=== PATIENT | female | born 1995 | race Caucasian/White ===

== ENCOUNTER 2023-06-29 11:20 | Outpatient (CLI) | payer BC, SELFPAY ==
[2023-06-29 15:13] LABS: Chlamydia DNA Amplified* NOT DETECTED (No Detected); GC DNA Amplified* NOT DETECTED (No Detected)
== END 2023-06-29 11:21 | disposition home or self-care (01) ==
PROVIDERS: PCP Family Medicine; Visit Provider Registered Nurse
DX: N89.8 Other specified noninflammatory disorders of vagina (principal); Z11.3 Encounter for screening for infections with a predominantly sexual mode of transmission
CPT/HCPCS: 86592; 86703; 86803; 87340; 87491; 87591

== ENCOUNTER 2024-04-06 08:35 | Outpatient (CLI) | payer BC, SELFPAY ==
--- NOTE | 2024-04-06 09:45 | W.ANESCHARGE ---
Anesthesia Charges Start Date/Time Anesthesia Start Date: 04/06/24 Anesthesia Start Time: 09:19 Stop Date/Time Anesthesia Stop Date: 04/06/24 Anesthesia Stop Time: 09:44
--- NOTE | 2024-04-06 10:26 | W.ANESCHARGE ---
Anesthesia Charges Start Date/Time Anesthesia Start Date: 04/06/24 Anesthesia Start Time: 09:19 Stop Date/Time Anesthesia Stop Date: 04/06/24 Anesthesia Stop Time: 09:44
== END 2024-04-06 08:36 | disposition home or self-care (01) ==
LOC: OP CLINIC 08:36
PROVIDERS: PCP Family Medicine; Visit Provider Internal Medicine Gastroenterology
DX: K92.1 Melena (principal); Z86.010 Personal history of colon polyps
CPT/HCPCS: 00812; 45378; J2704

== ENCOUNTER 2024-07-05 13:37 | Emergency (ER) | payer BC, SELFPAY ==
[2024-07-05 13:41] VITALS: BP 112/75; PULSE 104; RESP 18; TEMP 36.7; O2SAT 99; BMI 45.5
--- NOTE | 2024-07-05 14:35 | CRLHL7_ITS ---
For Patients: As a result of the Century Cures Act, medical imaging exams and procedure reports are released immediately into your electronic medical record. You may view this report before your referring provider. If you have questions, please contact your health care provider. INDICATION: Epigastric pain. TECHNIQUE: Limited right upper quadrant ultrasound examination of the abdomen was performed. Grayscale and color Doppler images were obtained. COMPARISON: None. FINDINGS: Liver: Normal in size and contour. The hepatic echotexture is normal. No suspicious hepatic masses. Gallbladder: Normal in size. No pericholecystic fluid. Cholelithiasis. Sonographic Shane`s sign was negative. Common bile duct: Measures 5 mm. Pancreas: Visualized portions unremarkable. Right kidney: Normal in size. No hydronephrosis. No suspicious renal masses or obstructive urinary calculus. Vascular: Visualized aorta and IVC are unremarkable. IMPRESSION: Cholelithiasis without other sonographic evidence of acute cholecystitis. Dictated by Jonah Deleon MD @ 07/05/2024 3:28:25 PM (Electronically Signed)
--- NOTE | 2024-07-05 14:37 | ED_ITS ---
HPI - Abdominal Pain General Chief Complaint: Abdominal Pain Stated Complaint: Abdominal/back pain--med reaction Time Seen by Provider: 07/05/24 13:40 History of Present Illness HPI narrative: This 28-year-old female states that she began to have some abdominal discomfort last night and it became more intense and constant as it woke her up at about 5:00 a.m. this morning. She recently increased her dose of tirzepatide and wonders if her symptoms may be triggered by this medication change. She reports some nausea and vomiting and has had some diarrhea. She states that when she tries to take any food or drink then she has increased abdominal pain that does seem to extend more into the right upper abdomen also. She arrives here with heart rate at 104 but her other vital signs are all normal. Related Data Home Medications ?Medication ?Instructions ?Recorded ?Confirmed metoprolol succinate 25 mg 25 mg PO DAILY 06/15/23 04/05/24 tablet,extended release 24 hr clonazepam 0.5 mg tablet 0.5 mg PO BID PRN 06/29/23 07/05/24 lamotrigine 100 mg tablet 100 mg PO DAILY 04/05/24 07/05/24 olanzapine 5 mg tablet 5 mg PO QPM 04/05/24 07/05/24 metoprolol succinate 50 mg 50 mg PO DAILY 07/05/24 07/05/24 tablet,extended release 24 hr tirzepatide (weight loss) 7.5 7.5 mg subcut 07/05/24 mg/0.5 mL subcutaneous pen injector (Zepbound) venlafaxine 37.5 mg 37.5 mg PO DAILY 07/05/24 07/05/24 capsule,extended release 24 hr Previous Rx's ?Medication ?Instructions ?Recorded hydrocodone 5 mg-acetaminophen 325 1 tab PO Q4-6H PRN pain #15 tabs 07/05/24 mg tablet ondansetron HCl 4 mg tablet 4 mg PO Q6H #20 tabs 07/05/24 Allergies Allergy/AdvReac Type Severity Reaction Status Date / Time ibuprofen Allergy Severe Anaphylaxis Verified 07/05/24 13:50 ciprofloxacin (From Cipro) Allergy Mild Anxiety Verified 07/05/24 13:50 Sulfa (Sulfonamide Allergy Mild Hives Verified 07/05/24 13:50 Antibiotics) kiwi Allergy Verified 07/05/24 13:50 pineapple Allergy Verified 07/05/24 13:50 Review of Systems Status of ROS Reports: 10 or more systems reviewed and unremarkable except as noted in History and below Narrative Constitutional: No fevers, no weight gain or loss. Eyes: No discharge. No vision changes. HENT: No congestion, no sore throat, no ear pain. Cardiovascular: No chest pain, no palpitations. Respiratory: No shortness of breath, no wheezes, no cough. Gastrointestinal: Upper epigastric abdominal pain with some nausea, vomiting, and diarrhea. Genitourinary: No dysuria, no hematuria. Musculoskeletal: Normal range of motion. Skin: No rashes, no pruritis. Neurological: No dizziness, weakness, sensory change, speech change. Endo/Heme/Allergies: No bruising or bleeding. No polydipsia. Pysch: no suicidality, no anxiety, no insomnia. All other systems reviewed and are negative. [facility] Surgical History (Updated 06/13/23 @ 11:10 by Gill Morillo) History of open reduction and internal fixation (ORIF) procedure ?Z98.890 - Other specified postprocedural states (ICD-10) Family History (Updated 06/13/23 @ 11:12 by Gill Morillo) Mother Addiction to drug Alcohol dependence Father Addiction to drug Alcohol dependence Maternal Grandmother Diabetes Maternal Grandfather Heart disease Paternal Grandmother Diabetes Paternal Grandfather Diabetes Exam Narrative: Exam Narrative: Constitutional: Well-developed, well-nourished, no acute distress. HEENT: Normocephalic, atraumatic. Neck: Normal range of motion. Nontender. Supple. Heart: Regular. No murmurs. Normal rate. Intact distal pulses. Lungs: Clear to auscultation. No chest discomfort. No wheezes, rhonchi, or rales. Abdomen: Normal bowel sounds. Tender in the upper epigastric region and also the right upper quadrant. No rebound tenderness. Genitalia: Deferred. Back: No midline tenderness. Normal range of motion. Extremities: Normal range of motion. No injury. Skin: Intact. No rash. Warm. No erythema or pallor. Neurologic: No altered sensation. No weakness. Alert and oriented. Psychiatric: No suicidality. No anxiety or depression. No insomnia. Nursing notes and vitals signs are reviewed. Const: Vital Signs, click to edit/add: Vital Signs - 24 hr 07/05/24 13:41 Temperature 98.0 F Pulse Rate [Right Pulse Oximeter] 104 H Respiratory Rate 18 Blood Pressure [Ri ght Upper Arm] 112/75 Pulse Oximetry 99 Oxygen Delivery Me thod Room Air Course Vital Signs Vital signs: Initial Vital Signs Temperature 98.0 F 07/05/24 13:41 Temperature Source Temporal Artery Scan 07/05/24 13:41 Pulse Rate 104 H 07/05/24 13:41 Pulse Rhythm Regular 07/05/24 13:41 Pulse Strength 3+ Normal 07/05/24 13:41 Respiratory Rate 18 07/05/24 13:41 Blood Pressure 112/75 07/05/24 13:41 Blood Pressure Mean 87 07/05/24 13:41 Blood Pressure Position Sitting 07/05/24 13:41 Pulse Oximetry 99 07/05/24 13:41 Oxygen Delivery Method Room Air 07/05/24 13:41 Vital Signs Temperature 98.0 F 07/05/24 13:41 Pulse Rate 104 H 07/05/24 13:41 Respiratory Rate 18 07/05/24 13:41 Blood Pressure 112/75 07/05/24 13:41 Pulse Oximetry 99 07/05/24 13:41 Oxygen Delivery Method Room Air 07/05/24 13:41 Temperature 98.0 F 07/05/24 13:41 Pulse Rate 104 H 07/05/24 13:41 Respiratory Rate 18 07/05/24 13:41 Blood Pressure 112/75 07/05/24 13:41 Pulse Oximetry 99 07/05/24 13:41 Oxygen Delivery Method Room Air 07/05/24 13:41 Medications Administered Medications: Discontinued Medications Generic Name Dose Route Start Last Admin Trade Name Freq PRN Reason Stop Dose Admin Sodium Chloride 500 mls @ 500 mls/hr 07/05/24 14:35 07/05/24 15:16 0.9 % Sodium Chloride 500 Ml IV 07/05/24 15:34 500 mls/hr .Q1H ONE Administration Ondansetron HCl 4 mg 07/05/24 14:35 07/05/24 15:16 Ondansetron 2 Mg/Ml Inj IVP 07/05/24 14:36 4 mg ONCE ONE Administration MDM - Abdominal Pain MDM Narrative Medical decision making narrative: This patient comes in with upper epigastric abdominal pain along with vomiting and diarrhea. She states that this pain is distinctly worse with taking any kind of food or drink. She arrives with elevated heart rate because of fluid loss a stemmed [place]. An IV was established and she received 500 mL of normal saline along with 4 mg of Zofran. She states that she is feeling better regarding those treatments but continues to have upper epigastric abdominal pain. An ultrasound is obtained and does show evidence of a larger gallstone moving freely in the gallbladder. There is no sign of obstruction or other complication. There is no sign of cholecystitis however when the patient takes food or drink and the gallbladder contracts this may very likely explain her symptoms. She is okay to be discharged home and encouraged to follow up with surgery Clinic as she is having frequent symptoms related to this. I did describe signs and symptoms that would indicate a need for return for re- evaluation. She did received prescriptions for [place] and Zofran. Lab Data Labs: Lab Results 07/05/24 07/05/24 Range/Units 14:50 14:54 WBC 12.77 H (4.50-11.00) K/uL RBC 5.03 (4.00-5.20) m/uL Hgb 13.3 (12.0-16.0) gm/dL Hct 40.6 (33.0-51.0) % MCV 81 (80-100) fL MCH 26 (26-34) pg MCHC 33 (32-36) gm/dL RDW Coeff of Gladis 13.7 (11.5-15.5) % Plt Count (140-440) K/uL Neut % (Auto) 87.2 H (42.0-72.0) % Lymph % (Auto) 6.4 L (20-44) % [place] % (Auto) 4.9 (0.0-11.0) % Eos % (Auto) 0.9 (0.0-7.0) % Baso % (Auto) 0.1 (0.0-3.0) % Neut # (Auto) 11.10 H (1.7-7.0) K/uL Lymph # (Auto) 0.80 L (0.90-2.90) K/uL [place] # (Auto) 0.60 (0.00-0.90) K/UL Eos # (Auto) 0.10 (0.00-0.50) K/uL Baso # (Auto) 0.00 (0.00-0.30) K/uL Abs Immat Gran (auto) 0.10 (0.00-0.30) K/uL Imm/Tot Granulo (auto) 0.5 % Sodium 133 L (135-149) mmol/L Potassium 4.4 (3.6-5.1) mmol/L Chloride 103 (96-114) mmol/L Carbon Dioxide 22 (20-32) mmol/L Anion Gap 8 (7-15) mEq/L BUN 14 (5-24) mg/dL Creatinine 0.8 (0.5-1.5) mg/dL Estimated Creat Clear 103.73 Estimated GFR 102 ml/min Glucose 100 (60-115) mg/dL Calcium 9.0 (8.4-10.6) mg/dL Total Bilirubin 0.6 (0.1-1.5) mg/dL Direct Bilirubin 0.3 (0.0-0.5) mg/dL AST 25 (12-35) U/L ALT 17 (4-35) U/L Alkaline Phosphatase 52 (40-150) U/L Total Protein 8.4 H (6.0-8.3) g/dL Albumin 4.6 (3.3-5.0) g/dL Lipase 49 (23-300) U/L Urine Color Yellow (Yellow) Urine Appearance Clear (Clear) Urine pH 5.5 (5.0-8.5) Ur Specific [place] 1.015 (1.000-1.030) Urine Protein Negative (Negative) Urine Glucose (UA) Negative (Negative) Urine Ketones Negative (Negative) Urine Blood 1+ A (Negative) Urine Nitrite Negative (Negative) Urine Bilirubin Negative (Negative) Urine Urobilinogen 0.2 (0.2-1.0) Ur Leukocyte Esterase Negative (Negative) Urine RBC 10-25 A (0-2) Urine WBC 0-2 (0-5) Ur Squamous Epith Cells Few (None-Few) Urine Bacteria None (None) Imaging Data US - abdomen: Radiologist's impression: Cholelithiasis without other sonographic evidence of acute cholecystitis. Discharge Plan Discharge Clinical Impression: Cholelithiasis Additional Instructions: Take medication as prescribed and needed. Follow-up with surgery clinic for ongoing management. Call [phone] for appointment. Return if worsening. Prescriptions: New hydrocodone-acetaminophen 5-325 mg tablet 1 tab PO Q4-6H PRN (Reason: pain) Qty: 15 0RF ondansetron HCl 4 mg tablet 4 mg PO Q6H Qty: 20 0RF No Action metoprolol succinate 25 mg tablet extended release 24 hr 25 mg PO DAILY clonazepam 0.5 mg tablet 0.5 mg PO BID PRN lamotrigine 100 mg tablet 100 mg PO DAILY olanzapine 5 mg tablet 5 mg PO QPM venlafaxine 37.5 mg capsule,extended release 24hr 37.5 mg PO DAILY metoprolol succinate 50 mg tablet extended release 24 hr 50 mg PO DAILY Zepbound 7.5 mg/0.5 mL pen injector 7.5 mg subcut Follow Up/Referrals: Zeb Rosales MD [Primary Care Provider] -
[2024-07-05 15:04] LABS: Appearance Urine Clear (Clear); Bilirubin Urine Negative (Negative); Blood Urine 1+ (Negative); Color Urine Yellow (Yellow); Glucose Urine Negative (Negative); Ketones Urine Negative (Negative); Leukocyte Esterase Urine Negative (Negative); Nitrite Urine Negative (Negative); Protein Urine Negative (Negative); Specific Gravity Urine 1.015 (1.000-1.030); Urobilinogen Urine 0.2 (0.2-1.0); pH Urine 5.5 (5.0-8.5)
[2024-07-05 15:05] LABS: Basophils Percent Auto 0.1 % (0.0-3.0); Eosinophils Percent Auto 0.9 % (0.0-7.0); Hematocrit 40.6 % (33.0-51.0); Hemoglobin* 13.3 gm/dL (12.0-16.0); Immature Granulocytes Pct Auto 0.5 %; Lymphocytes Percent Auto 6.4 % (20-44); Mean Corpuscular HGB Conc 33 gm/dL (32-36); Mean Corpuscular Hemoglobin 26 pg (26-34); Mean Corpuscular Volume 81 fL (80-100); Monocytes Percent Auto 4.9 % (0.0-11.0); Neutrophils Percent Auto 87.2 % (42.0-72.0); RDW Coefficient of Variation % 13.7 % (11.5-15.5); Red Blood Count 5.03 m/uL (4.00-5.20); White Blood Count* 12.77 K/uL (4.50-11.00)
[2024-07-05 15:12] LABS: Chloride* 103 mmol/L (96-114)
[2024-07-05 15:13] LABS: Albumin* 4.6 g/dL (3.3-5.0); Potassium* 4.4 mmol/L (3.6-5.1); Sodium* 133 mmol/L (135-149)
[2024-07-05 15:15] LABS: Creatinine* 0.8 mg/dL (0.5-1.5); Est. Creatinine Clearance* 103.73; Estimated Glomerular Filt Rate 102 ml/min
[2024-07-05 15:16] LABS: Alanine Aminotransferase* 17 U/L (4-35); Alkaline Phosphatase* 52 U/L (40-150); Anion Gap 8 mEq/L (7-15); Aspartate Amino Transferase* 25 U/L (12-35); Bilirubin Direct* 0.3 mg/dL (0.0-0.5); Bilirubin Total* 0.6 mg/dL (0.1-1.5); Blood Urea Nitrogen* 14 mg/dL (5-24); Carbon Dioxide* 22 mmol/L (20-32); Glucose* 100 mg/dL (60-115); Lipase* 49 U/L (23-300); Total Protein* 8.4 g/dL (6.0-8.3)
[2024-07-05] MEDS: 0.9 % SODIUM CHLORIDE 500 ML 500 ML IV (15:16)
[2024-07-05] MEDS: ONDANSETRON 2 MG/ML inj 4 MG IVP (15:16)
[2024-07-05 15:17] LABS: WBC Urine 0-2 (0-5)
[2024-07-05 15:18] LABS: Squamous Epithelial Cell Urine Few (None-Few)
[2024-07-05 15:25] LABS: Slide Review Reflex No
== END 2024-07-05 16:10 | disposition home or self-care (01) ==
PROVIDERS: Emergency Provider Emergency Medicine Emergency Medical Services; PCP Family Medicine
DX: K80.20 Calculus of gallbladder without cholecystitis without obstruction (principal); Z79.85 Long-term (current) use of injectable non-insulin antidiabetic drugs
CPT/HCPCS: 36415; 76705; 80048; 80076; 81001; 83690; 85025; 99284; J2405; J7030

== ENCOUNTER 2024-07-05 20:02 | Day surgery (SDC) | payer BC, SELFPAY ==
[2024-07-05 20:09] VITALS: BP 124/76; PULSE 98; RESP 16; TEMP 37; O2SAT 97; BMI 45.5
--- NOTE | 2024-07-05 20:27 | ED_ITS ---
HPI - Nausea/Vomiting/Diarrhea General Chief complaint: Nausea/Vomiting Stated complaint: Vomiting and pain-here earlier today Time Seen by Provider: 07/05/24 20:06 History of Present Illness HPI Narrative: This patient comes in with persistent nausea and vomiting. She was seen earlier by me and an ultrasound of the right upper quadrant did show evidence of a gallstone that is likely causing her symptoms. Lab results were reassuring at that time. She was okay to be discharged with prescriptions for [place] and Zofran. She did take these meds but they did not help her symptoms at all and she returns because of persistent vomiting and nausea with abdominal pain. Related Data Home Medications ?Medication ?Instructions ?Recorded ?Confirmed metoprolol succinate 25 mg 25 mg PO DAILY 06/15/23 04/05/24 tablet,extended release 24 hr clonazepam 0.5 mg tablet 0.5 mg PO BID PRN 06/29/23 07/05/24 lamotrigine 100 mg tablet 100 mg PO DAILY 04/05/24 07/05/24 olanzapine 5 mg tablet 5 mg PO QPM 04/05/24 07/05/24 metoprolol succinate 50 mg 50 mg PO DAILY 07/05/24 07/05/24 tablet,extended release 24 hr tirzepatide (weight loss) 7.5 7.5 mg subcut 07/05/24 mg/0.5 mL subcutaneous pen injector (Zepbound) venlafaxine 37.5 mg 37.5 mg PO DAILY 07/05/24 07/05/24 capsule,extended release 24 hr Previous Rx's ?Medication ?Instructions ?Recorded hydrocodone 5 mg-acetaminophen 325 1 tab PO Q4-6H PRN pain #15 tabs 07/05/24 mg tablet ondansetron HCl 4 mg tablet 4 mg PO Q6H #20 tabs 07/05/24 Allergies Allergy/AdvReac Type Severity Reaction Status Date / Time ibuprofen Allergy Severe Anaphylaxis Verified 07/05/24 13:50 ciprofloxacin (From Cipro) Allergy Mild Anxiety Verified 07/05/24 13:50 Sulfa (Sulfonamide Allergy Mild Hives Verified 07/05/24 13:50 Antibiotics) kiwi Allergy Verified 07/05/24 13:50 pineapple Allergy Verified 07/05/24 13:50 Review of Systems Status of ROS: Reports: 10 or more systems reviewed and unremarkable except as noted in History and below Narrative: Constitutional: No fevers, no weight gain or loss. Eyes: No discharge. No vision changes. HENT: No congestion, no sore throat, no ear pain. Cardiovascular: No chest pain, no palpitations. Respiratory: No shortness of breath, no wheezes, no cough. Gastrointestinal: Upper epigastric and right upper quadrant abdominal pain with nausea and vomiting. Genitourinary: No dysuria, no hematuria. Musculoskeletal: Normal range of motion. Skin: No rashes, no pruritis. Neurological: No dizziness, weakness, sensory change, speech change. Endo/Heme/Allergies: No bruising or bleeding. No polydipsia. Pysch: no suicidality, no anxiety, no insomnia. All other systems reviewed and are negative. PFSH PFSH Surgical History (Updated 06/13/23 @ 11:10 by Gill Morillo) History of open reduction and internal fixation (ORIF) procedure ?Z98.890 - Other specified postprocedural states (ICD-10) Family History (Updated 06/13/23 @ 11:12 by Gill Morillo) Mother Addiction to drug Alcohol dependence Father Addiction to drug Alcohol dependence Maternal Grandmother Diabetes Maternal Grandfather Heart disease Paternal Grandmother Diabetes Paternal Grandfather Diabetes Exam Narrative: Exam Narrative: Constitutional: Well-developed, well-nourished, no acute distress. HEENT: Normocephalic, atraumatic. Neck: Normal range of motion. Nontender. Supple. Heart: Regular. No murmurs. Normal rate. Intact distal pulses. Lungs: Clear to auscultation. No chest discomfort. No wheezes, rhonchi, or rales. Abdomen: Normal bowel sounds. Right upper quadrant and upper epigastric tenderness. No rebound tenderness. Genitalia: Deferred. Back: No midline tenderness. Normal range of motion. Extremities: Normal range of motion. No injury. Skin: Intact. No rash. Warm. No erythema or pallor. Neurologic: No altered sensation. No weakness. Alert and oriented. Psychiatric: No suicidality. No anxiety or depression. No insomnia. Nursing notes and vitals signs are reviewed. Const: Vital Signs, click to edit/add: Vital Signs - 24 hr 07/05/24 20:09 Temperature 98.6 F Pulse Rate [Pulse Oximeter] 98 Respiratory Rate 16 Blood Pressure [Ri ght Upper Arm] 124/76 Pulse Oximetry 97 Oxygen Delivery Me thod Room Air Course Vital Signs Vital signs: Initial Vital Signs Temperature 98.6 F 07/05/24 20:09 Temperature Source Temporal Artery Scan 07/05/24 20:09 Pulse Rate 98 07/05/24 20:09 Respiratory Rate 16 07/05/24 20:09 Blood Pressure 124/76 07/05/24 20:09 Blood Pressure Mean 92 07/05/24 20:09 Blood Pressure Position Sitting 07/05/24 20:09 Pulse Oximetry 97 07/05/24 20:09 Oxygen Delivery Method Room Air 07/05/24 20:09 Vital Signs Temperature 98.6 F 07/05/24 20:09 Pulse Rate 98 07/05/24 20:09 Respiratory Rate 16 07/05/24 20:09 Blood Pressure 124/76 07/05/24 20:09 Pulse Oximetry 97 07/05/24 20:09 Oxygen Delivery Method Room Air 07/05/24 20:09 Temperature 98.6 F 07/05/24 20:09 Pulse Rate 98 07/05/24 20:09 Respiratory Rate 16 07/05/24 20:09 Blood Pressure 124/76 07/05/24 20:09 Pulse Oximetry 97 07/05/24 20:09 Oxygen Delivery Method Room Air 07/05/24 20:09 MDM - Nausea/Vomiting/Diarrhea MDM Narrative Medical decision making narrative: This patient has evidence of gallstones on ultrasound and was discharged home with pain and nausea medicine. She returns because despite taking these medicines she has uncontrolled symptoms. I did speak with the surgeon on-call and with the hospitalist. It is agreeable to bring her in for plans to remove her gallbladder tomorrow. Discharge Plan Discharge Clinical Impression: Cholelithiasis Patient Disposition: Admitted As Observation Condition: Unchanged Prescriptions: No Action metoprolol succinate 25 mg tablet extended release 24 hr 25 mg PO DAILY clonazepam 0.5 mg tablet 0.5 mg PO BID PRN lamotrigine 100 mg tablet 100 mg PO DAILY olanzapine 5 mg tablet 5 mg PO QPM venlafaxine 37.5 mg capsule,extended release 24hr 37.5 mg PO DAILY metoprolol succinate 50 mg tablet extended release 24 hr 50 mg PO DAILY Zepbound 7.5 mg/0.5 mL pen injector 7.5 mg subcut hydrocodone-acetaminophen 5-325 mg tablet 1 tab PO Q4-6H PRN (Reason: pain) Qty: 15 0RF ondansetron HCl 4 mg tablet 4 mg PO Q6H Qty: 20 0RF Follow Up/Referrals: Zeb Rosales MD [Primary Care Provider] -
[2024-07-05] MEDS: ONDANSETRON 2 MG/ML inj 4 MG IVP (20:48)
[2024-07-05] MEDS: 0.9 % SODIUM CHLORIDE 500 ML 500 ML IV (20:48)
[2024-07-05] MEDS: HYDROmorphone 0.5 mg/0.5 ml inj IVP (20:48)
--- NOTE | 2024-07-05 21:00 | PM.IMHP1 ---
Hospitalist- H&P: HPI History of Present Illness Date Seen: 07/05/24 Chief complaint: Vomiting and pain-here earlier today Narrative: Kami Estes is a 28 year old female past medical history significant for endometriosis, depression, panic disorder, generalized anxiety disorder, PTSD, obesity, JUAN PABLO, sinus tachycardia is admitted to the medical floor from the ED for uncontrolled nausea, vomiting, abdominal pain in setting of acute cholelithiasis. Patient was seen in the ED earlier today for complaint of abdominal pain, nausea, vomiting, diarrhea onset overnight and was discharged with instructions to return if new or worsening symptoms. Patient returns to the ED with persistent nausea and vomiting. Unable to keep the pain pills down. She was seen by the same ED provider a few hours earlier and diagnosed with a gallstone that was identified on right upper quadrant ultrasound. Mild leukocytosis. Afebrile, Vitally stable. [place] and Zofran were not helping following discharge to home. ED provider discussed with General surgery, Dr. Howard, recommending admission with consultation in the morning. Currently, patient denies headache or dizziness. Denies chest pain or shortness of breath. No recent fevers. Abdominal pain is right upper quadrant, radiating into posterior flanks. Worsened with eating or drinking. Denies UTI symptoms. History of chronic hematuria. Patient denies complications with previous anesthesia other than waking during 2 surgeries when she was younger. Denies known history of personal or family bleeding disorder. Stopped smoking tobacco and drinking alcohol July 2021. No longer smokes marijuana. PCP Dr Светлана Malik Takes all of her home medications once daily at 11:00 a.m. Review of Systems Narrative: REVIEW OF SYSTEMS: Complete review of systems performed and negative unless otherwise stated in HPI or below. [facility] Medical History (Updated 07/05/24 @ 21:47 by Ctarina Guzmán PA-C) Obesity ?E66.9 - Obesity, unspecified (ICD-10) Aneurysm of anterior cerebral artery ?I67.1 - Cerebral aneurysm, nonruptured (ICD-10) Sinus tachycardia ?R00.0 - Tachycardia, unspecified (ICD-10) PTSD (post-traumatic stress disorder) ?F43.10 - Post-traumatic stress disorder, unspecified (ICD-10) Panic disorder ?F41.0 - Panic disorder [episodic paroxysmal anxiety] (ICD-10) JUAN PABLO (obstructive sleep apnea) ?G47.33 - Obstructive sleep apnea (adult) (pediatric) (ICD-10) Depression ?F32.A - Depression, unspecified (ICD-10) Surgical History History of open reduction and internal fixation (ORIF) procedure ?Z98.890 - Other specified postprocedural states (ICD-10) Family History Mother Addiction to drug Alcohol dependence Father Addiction to drug Alcohol dependence Maternal Grandmother Diabetes Maternal Grandfather Heart disease Paternal Grandmother Diabetes Paternal Grandfather Diabetes Meds Home Medications and Allergies Home Medications ?Medication ?Instructions ?Recorded ?Confirmed ?Type metoprolol succinate 25 mg 25 mg PO DAILY 06/15/23 04/05/24 History tablet,extended release 24 hr clonazepam 0.5 mg tablet 0.5 mg PO BID PRN 06/29/23 07/05/24 History lamotrigine 100 mg tablet 100 mg PO DAILY 04/05/24 07/05/24 History olanzapine 5 mg tablet 5 mg PO QPM 04/05/24 07/05/24 History metoprolol succinate 50 mg 50 mg PO DAILY 07/05/24 07/05/24 History tablet,extended release 24 hr tirzepatide (weight loss) 7.5 7.5 mg subcut 07/05/24 History mg/0.5 mL subcutaneous pen injector (Zepbound) venlafaxine 37.5 mg 37.5 mg PO DAILY 07/05/24 07/05/24 History capsule,extended release 24 hr Allergies Allergy/AdvReac Type Severity Reaction Status Date / Time ibuprofen Allergy Severe Anaphylaxis Verified 07/05/24 13:50 ciprofloxacin (From Cipro) Allergy Mild Anxiety Verified 07/05/24 13:50 Sulfa (Sulfonamide Allergy Mild Hives Verified 07/05/24 13:50 Antibiotics) kiwi Allergy Verified 07/05/24 13:50 pineapple Allergy Verified 07/05/24 13:50 Exam Narrative: Exam Narrative: PHYSICAL EXAM General: Pleasant, conversant, NAD HEENT: Normocephalic, atraumatic, sclera white, EOMI, oral mucosa moist Cardiovascular: RRR, S1S2. No pitting edema Pulmonary: CTA bilaterally without rhonchi, rales, expiratory wheezes. No dyspnea Abdominal: Soft, nondistended, TTP right upper quadrant to midepigastric region Neurological: Alert, answering questions appropriately, cranial nerves intact, no focal findings Extremities: No gross joint deformity or swelling. AROMI. Neurovascularly intact Skin: Warm, dry. Const: Vital Signs, click to edit/add: Vital Signs - 24 hr 07/05/24 20:09 Temperature 98.6 F Pulse Rate [Pulse Oximeter] 98 Respiratory Rate 16 Blood Pressure [Ri ght Upper Arm] 124/76 Pulse Oximetry 97 Oxygen Delivery Me thod Room Air Hospitalist - H&P: Result Imaging Right upper quadrant ultrasound: Attestation: I have reviewed the pertinent imaging results. Radiologist's impression: Liver: Normal in size and contour. The hepatic echotexture is normal. No suspicious hepatic masses. Gallbladder: Normal in size. No pericholecystic fluid. Cholelithiasis. Sonographic Hsane`s sign was negative. Common bile duct: Measures 5 mm. Pancreas: Visualized portions unremarkable. Right kidney: Normal in size. No hydronephrosis. No suspicious renal masses or obstructive urinary calculus. Vascular: Visualized aorta and IVC are unremarkable. IMPRESSION: Cholelithiasis without other sonographic evidence of acute cholecystitis. Assessment and Plan Assessment and plan (1) Cholelithiasis: Problem comment: -unrelenting abdominal pain, nausea, vomiting, diarrhea -right upper quadrant ultrasound shows cholelithiasis without evidence of cholecystitis; mild leukocytosis, afebrile, vitally stable -NPO, IVF -pain and nausea management as needed -general surgery consult in the morning, Dr. Howard aware Status: Acute (2) Obesity: Problem comment: -BMI 45.5 -recently started tirzepatide, has lost 15 lb Status: Acute (3) Depression: Problem comment: -with anxiety, PTSD, panic disorder, OCD, bipolar disorder -continue home medications Status: Acute (4) Sinus tachycardia: Problem comment: -with history of PVCs -continue metoprolol Status: Acute Total Time Spent Total Time Spent: Total time spent caring for the patient today was 75 minutes. This includes time spent for the visit reviewing the chart, time spent during the visit, time spent after the visit and documentation and planning in coordination of care.
[2024-07-05 21:13] VITALS: BP 97/55; PULSE 83; RESP 16; TEMP 37.3; O2SAT 99; BMI 45.6
[2024-07-05] MEDS: 0.9 % SODIUM CHLORIDE 1000 ml 1,000 ML 125 ML IV (21:49)
[2024-07-05] MEDS: MORPHINE 4 MG/ML INJ IVP (22:24)
[2024-07-05 22:42] VITALS: BP 97/55; PULSE 83; RESP 16; TEMP 37.3; O2SAT 99
[2024-07-05 23:00] VITALS: PULSE 83; RESP 16
[2024-07-06] VITALS (12 sets, daily range): BP systolic 96–131; BP diastolic 60–90; PULSE 66–98; RESP 14–16; TEMP 36.1–36.8; O2SAT 95–100
[2024-07-06] MEDS: MORPHINE 4 MG/ML INJ IVP ×2 (00:26→05:08)
[2024-07-06] MEDS: PROCHLORPERAZINE 5 MG/ML VIAL IV (00:26)
[2024-07-06] MEDS: ONDANSETRON 2 MG/ML inj 4 MG IVP (05:08)
[2024-07-06] MEDS: 0.9 % SODIUM CHLORIDE 1000 ml 1,000 ML 125 ML IV (05:23)
[2024-07-06 06:41] LABS: Hematocrit 33.6 % (33.0-51.0); Hemoglobin* 10.8 gm/dL (12.0-16.0); Mean Corpuscular HGB Conc 32 gm/dL (32-36); Mean Corpuscular Hemoglobin 27 pg (26-34); Mean Corpuscular Volume 82 fL (80-100); Platelet Count* 325 K/uL (140-440); Red Blood Count 4.08 m/uL (4.00-5.20); White Blood Count* 8.12 K/uL (4.50-11.00)
--- NOTE | 2024-07-06 06:45 | PM.GSCN ---
History of Present Illness Consult details Date Seen: 07/06/24 Consult date: 07/06/24 Narrative: The patient is a 28-year-old female who presented to the emergency department yesterday with abdominal pain. She states that around 3:00 a.m. 2 days ago she workup with abdominal pain. She states that she had bloating and gas as well as pain that wrapped around her upper abdomen to her back on both sides. The pain currently is mostly epigastric and right upper quadrant. Around 5:00 a.m. yesterday morning it became unbearable and she developed diarrhea, nausea and vomiting. She was unable to eat anything all day and so came into the ER. She has had similar symptoms of for but not as severe. She has been on tirzepatide for weight loss for the last 2 months. The day before her symptoms began she did increase her dose. Workup in the emergency department revealed gallstones without evidence of cholecystitis or choledocholithiasis. LFTs were normal but white blood cell count was elevated. Because of persistent symptoms and inability to keep down fluids, she was admitted to the hospital for consideration of cholecystectomy. [facility] Medical History (Updated 07/06/24 @ 09:51 by Brandy Howard MD) Obesity ?E66.9 - Obesity, unspecified (ICD-10) Aneurysm of anterior cerebral artery ?I67.1 - Cerebral aneurysm, nonruptured (ICD-10) Sinus tachycardia ?R00.0 - Tachycardia, unspecified (ICD-10) PTSD (post-traumatic stress disorder) ?F43.10 - Post-traumatic stress disorder, unspecified (ICD-10) Panic disorder ?F41.0 - Panic disorder [episodic paroxysmal anxiety] (ICD-10) JUAN PABLO (obstructive sleep apnea) ?G47.33 - Obstructive sleep apnea (adult) (pediatric) (ICD-10) Depression ?F32.A - Depression, unspecified (ICD-10) Surgical History History of open reduction and internal fixation (ORIF) procedure ?Z98.890 - Other specified postprocedural states (ICD-10) Family History Mother Addiction to drug Alcohol dependence Father Addiction to drug Alcohol dependence Maternal Grandmother Diabetes Maternal Grandfather Heart disease Paternal Grandmother Diabetes Paternal Grandfather Diabetes Social History What is your current living situation?: I presently have a place to live Problems where you live: no known problems Problems where you live details: N/A In the past 12 months, utilities in danger of being shut off: no In the past 12 mos, have been you worried that your food would run out before you had money to buy more?: never true In the past 12 mos, the food you bought just didn't last and you didn't have money to buy more?: never true Highest level of school completed/degree received: some college, no degree Smoking Status: Former smoker Second hand tobacco smoke exposure: Yes (Mother smokes) How often do you have a drink containing alcohol: never How often do you have six or more drinks on one occasion: Never AUDIT-C Alcohol total score: 0 Non-prescribed substance use: denies use Caffeine: No How often does anyone, including family, friends and others, physically hurt you: never How often does anyone, including family, friends and others, insult or talk down to you: never How often does anyone, including family, friends and others, threaten you with harm: never How often does anyone, including family, friends and others, scream or curse at you: never service: No Meds Home Medications and Allergies Home Medications ?Medication ?Instructions ?Recorded ?Confirmed ?Type clonazepam 0.5 mg tablet 0.5 mg PO BID PRN 06/29/23 07/06/24 History lamotrigine 100 mg tablet 100 mg PO DAILY 04/05/24 07/06/24 History olanzapine 5 mg tablet 5 mg PO BID PRN 04/05/24 07/06/24 History metoprolol succinate 50 mg 50 mg PO DAILY 07/05/24 07/06/24 History tablet,extended release 24 hr venlafaxine 37.5 mg 37.5 mg PO DAILY 07/05/24 07/06/24 History capsule,extended release 24 hr hydrocodone 5 mg-acetaminophen 325 1 tab PO Q4H PRN pain 07/06/24 07/06/24 History mg tablet ondansetron HCl 4 mg tablet 4 mg PO Q8H PRN nausea and vomiting 07/06/24 07/06/24 History sumatriptan succinate 100 mg tablet 100 mg PO DAILY PRN 07/06/24 07/06/24 History tirzepatide (weight loss) 10 10 mg subcut .WEEKLY 07/06/24 07/06/24 History mg/0.5 mL subcutaneous pen injector (Zepbound) venlafaxine 75 mg capsule,extended 75 mg PO DAILY 07/06/24 07/06/24 History release 24 hr Allergies Allergy/AdvReac Type Severity Reaction Status Date / Time ibuprofen Allergy Severe Anaphylaxis Verified 07/05/24 13:50 ciprofloxacin (From Cipro) Allergy Mild Anxiety Verified 07/05/24 13:50 Sulfa (Sulfonamide Allergy Mild Hives Verified 07/05/24 13:50 Antibiotics) kiwi Allergy Verified 07/05/24 13:50 pineapple Allergy Verified 07/05/24 13:50 Exam Narrative: Exam Narrative: General appearance: Alert, cooperative, and in no distress Eyes: PERRLA, eye lids clear, and sclera white HENT Head: Normocephalic Ears: External ears normal Pulmonary: Breathing nonlabored on room air Cardiovascular Heart: Regular rate Extremities: warm and well perfused Gastrointestinal Abdominal: Obese. No upper abdominal scars. She is tender in the epigastrium and the right upper quadrant with a very mildly positive Shane sign. Musculoskeletal: Extremities: Upper: Both upper extremities have normal joint range of motion and intact strength. Lower: Both lower extremities have normal joint range of motion and intact strength. Skin: Normal skin color, texture, and turgor. Neurologic: No focal deficits Psychiatric: Alert, oriented, cooperative, normal affect. Const: Vital Signs, click to edit/add: Vital Signs - 24 hr 07/05/24 20:09 07/05/24 21:13 07/05/24 21:13 Temperature 98.6 F 99.2 F 99.2 F Pulse Rate [Pulse Oximeter] 98 Pulse Rate [Right Pulse Oximeter] 83 83 Respiratory Rate 16 16 16 Blood Pressure [Ri ght Arm] 97/55 L 97/55 L Blood Pressure [Ri ght Upper Arm] 124/76 Pulse Oximetry 97 99 99 Oxygen Delivery Me thod Room Air Room Air Room Air 07/05/24 21:13 07/05/24 22:42 07/05/24 23:00 Temperature 99.2 F Pulse Rate [Pulse Oximeter] Pulse Rate [Right Pulse Oximeter] 83 83 Respiratory Rate 16 16 16 Blood Pressure [Ri ght Arm] 97/55 L Blood Pressure [Ri ght Upper Arm] Pulse Oximetry 99 99 Oxygen Delivery Me thod Room Air Room Air 07/06/24 04:50 Temperature 97.2 F L Pulse Rate [Pulse Oximeter] Pulse Rate [Right Pulse Oximeter] 66 Respiratory Rate 16 Blood Pressure [Ri ght Arm] 98/64 Blood Pressure [Ri ght Upper Arm] Pulse Oximetry 100 Oxygen Delivery Me thod Room Air Results Labs Labs: LFTs both yesterday and today are normal. white blood cell count yesterday was 12.7. Today this is down to 8 Imaging Abdominal ultrasound report/results: report reviewed and image reviewed Additional studies: Ultrasound abdomen done yesterday FINDINGS: Liver: Normal in size and contour. The hepatic echotexture is normal. No suspicious hepatic masses. Gallbladder: Normal in size. No pericholecystic fluid. Cholelithiasis. Sonographic Shane`s sign was negative. Common bile duct: Measures 5 mm. Pancreas: Visualized portions unremarkable. Right kidney: Normal in size. No hydronephrosis. No suspicious renal masses or obstructive urinary calculus. Vascular: Visualized aorta and IVC are unremarkable. IMPRESSION: Cholelithiasis without other sonographic evidence of acute cholecystitis. Dictated by Jonah Deleon MD @ 07/05/2024 3:28:25 PM Progress Note:A&P Assessment and plan (1) Cholelithiasis: Status: Acute (2) Right upper quadrant pain: Status: Acute (3) Obesity: Status: Acute (4) Sinus tachycardia: Status: Acute Plan The patient is a 28-year-old female with gallstones and persistent/severe right upper quadrant pain likely indicating early cholecystitis. I explained that the treatment for this is laparoscopic cholecystectomy. We discussed the procedure as well as risks and benefits of surgery which include bleeding, infection, bile leak, conversion to open or injury to other structures, specifically the common bile duct. We also discussed recovery. She agreeable to proceed and signed informed consent. We will plan on surgery this morning.
[2024-07-06 06:46] LABS: Slide Review Reflex No
[2024-07-06 07:06] LABS: Chloride* 106 mmol/L (96-114)
[2024-07-06 07:07] LABS: Albumin* 3.6 g/dL (3.3-5.0); Potassium* 3.3 mmol/L (3.6-5.1); Sodium* 136 mmol/L (135-149)
[2024-07-06 07:10] LABS: Alanine Aminotransferase* 12 U/L (4-35); Alkaline Phosphatase* 53 U/L (40-150); Anion Gap 8 mEq/L (7-15); Aspartate Amino Transferase* 13 U/L (12-35); Bilirubin Total* 0.5 mg/dL (0.1-1.5); Blood Urea Nitrogen* 13 mg/dL (5-24); Carbon Dioxide* 22 mmol/L (20-32); Creatinine* 0.8 mg/dL (0.5-1.5); Est. Creatinine Clearance* 103.73; Estimated Glomerular Filt Rate 102 ml/min; Glucose* 90 mg/dL (60-115); Total Protein* 6.6 g/dL (6.0-8.3)
--- NOTE | 2024-07-06 07:54 | PC.NURSE ---
End of shift note [id number]: Pt alert & oriented x 4 and able to make needs known. She is independent with transferring. IV to R forearm patent with NS running per order. Nausea managed with PRN medication. Abdominal pain managed with PRN Morphine, rest and repositioning. Pt has reported abdominal pain 2-5/10 throughout the shift. Pt NPO in preparation for likely surgery today after morning consult with MD. Pt?s spent the night. Call light within reach. VSS and pt has been afebrile. She has been continent of bladder.
[2024-07-06] MEDS: POTASSIUM CHLORIDE 10 MEQ CAPSULE ER 40 MEQ PO (07:58)
[2024-07-06 09:25] LABS: Ur HCG Qualitative* Negative (Negative)
[2024-07-06] MEDS: CEFAZOLIN 1 GM inj 3 GM IVP (10:15)
--- NOTE | 2024-07-06 10:23 | PM.DS1 ---
DS: Providers Provider Date Seen: 07/06/24 Primary care physician: Zeb Rosales MD Attending Physician on discharge: Irais Matos MD DS: Diagnosis Discharge Diagnosis (1) Cholelithiasis: Status: Acute Problem details: -unrelenting abdominal pain, nausea, vomiting, diarrhea -right upper quadrant ultrasound shows cholelithiasis without evidence of cholecystitis; mild leukocytosis, afebrile, vitally stable -NPO, IVF -pain and nausea management as needed -general surgery consult in the morning, Dr. Howard to perform cholecystectomy on the patient 07/06. (2) Right upper quadrant pain: Status: Acute (3) Obesity: Status: Acute Problem details: -BMI 45.5 -recently started tirzepatide, has lost 15 lb (4) Sinus tachycardia: Status: Acute Problem details: -with history of PVCs - heart rate controlled -continue metoprolol DS: Summary Hospital Course Hospital Course: Kami Estes is a 28 year old female past medical history significant for endometriosis, depression, panic disorder, generalized anxiety disorder, PTSD, obesity, JUAN PABLO, sinus tachycardia is admitted to the medical floor from the ED for uncontrolled nausea, vomiting, abdominal pain in setting of acute cholelithiasis. In the ED, gallstone was identified on right upper quadrant ultrasound. Mild leukocytosis. Afebrile. General surgery, Dr. Howard was consulted and she performed Laparoscopic cholecystectomy on 07/06/24. The patient tolerated the procedure well and surgical team sent her home with instructions. Patient needs to follow-up with her PCP and General surgery as an outpatient. Time Spent with Patient Time attestation: Total time spent providing and/or coordinating discharge services: Exam Narrative: Exam Narrative: General: NAD Cardiovascular: Not tachycardic, RRR, S1S2. Pulmonary: CTA bilaterally without crackles or wheezes. Abdominal: Soft, obese, tender to palpation mainly at right upper quadrant. Neurological: Alert, awake oriented normal speech. Skin: Warm, dry. Psych: Normal mood and affect Const: Vital Signs, click to edit/add: Vital Signs - 24 hr 07/05/24 20:09 07/05/24 21:13 07/05/24 21:13 Temperature 98.6 F 99.2 F 99.2 F Pulse Rate [Pulse Oximeter] 98 Pulse Rate [Right Pulse Oximeter] 83 83 Respiratory Rate 16 16 16 Blood Pressure [Ri ght Arm] 97/55 L 97/55 L Blood Pressure [Ri ght Upper Arm] 124/76 Pulse Oximetry 97 99 99 Oxygen Delivery Me thod Room Air Room Air Room Air 07/05/24 21:13 07/05/24 22:42 07/05/24 23:00 Temperature 99.2 F Pulse Rate [Pulse Oximeter] Pulse Rate [Right Pulse Oximeter] 83 83 Respiratory Rate 16 16 16 Blood Pressure [Ri ght Arm] 97/55 L Blood Pressure [Ri ght Upper Arm] Pulse Oximetry 99 99 Oxygen Delivery Me thod Room Air Room Air 07/06/24 04:50 07/06/24 07:50 Temperature 97.2 F L 97.9 F Pulse Rate [Pulse Oximeter] Pulse Rate [Right Pulse Oximeter] 66 74 Respiratory Rate 16 16 Blood Pressure [Ri ght Arm] 98/64 96/61 Blood Pressure [Ri ght Upper Arm] Pulse Oximetry 100 100 Oxygen Delivery Me thod Room Air Room Air DS: Data Data Completed and Pending Labs on day of discharge: Labs from last 24 hours 07/06/24 07/06/24 09:14 06:30 WBC 8.12 RBC 4.08 Hgb 10.8 L Hct 33.6 MCV 82 MCH 27 MCHC 32 Plt Count 325 Sodium 136 Potassium 3.3 L Chloride 106 Carbon Dioxide 22 Anion Gap 8 BUN 13 Creatinine 0.8 Estimated Creat Clear 103.73 Estimated GFR 102 Glucose 90 Calcium 8.0 L Total Bilirubin 0.5 AST 13 ALT 12 Alkaline Phosphatase 53 Total Protein 6.6 Albumin 3.6 Urine HCG, Qual Negative Discharge Plan Discharge Disposition: Home w/ Parent or Adult Discharging Surgeon: Brandy Howard Follow-Up Appointment: Tuesday at 2:[address] [facility] [phone] Prescriptions: New hydrocodone-acetaminophen 5-325 mg Tablet 1 - 2 tab PO Q6H PRN (Reason: Pain) Qty: 20 0RF Continued clonazepam 0.5 mg tablet 0.5 mg PO BID PRN lamotrigine 100 mg tablet 100 mg PO DAILY olanzapine 5 mg tablet 5 mg PO BID PRN sumatriptan succinate 100 mg tablet 100 mg PO DAILY PRN Zepbound 10 mg/0.5 mL pen injector 10 mg subcut .WEEKLY venlafaxine 75 mg capsule,extended release 24hr 75 mg PO DAILY hydrocodone-acetaminophen 5-325 mg tablet 1 tab PO Q4H PRN (Reason: pain) ondansetron HCl 4 mg tablet 4 mg PO Q8H PRN (Reason: nausea and vomiting) venlafaxine 37.5 mg capsule,extended release 24hr 37.5 mg PO DAILY metoprolol succinate 50 mg tablet extended release 24 hr 50 mg PO DAILY Activity Level: Activity as Tolerated and No strenuous activity Activity Detail: No lifting more than 20 pounds for 2 weeks Discharge Diet: Regular Patient Instructions: General Anesthesia (DC), Laparoscopic Cholecystectomy (DC), Post-Operative Instructions: Laparoscopic Cholecystectomy Additional Instructions: Wound care: Your sutures are under the skin and will dissolve over time. Leave steri strips (white bandages) over incisions until they fall off (or remove after 7 days). OK to shower tomorrow but avoid bathing, soaking or swimming for 2 weeks. Pat the incisions dry. No need to wash or scrub the area. Apply ice to the area as needed for swelling. It is also OK to use a heating pad if this provides more comfort to you. Pain control: You were prescribed a pain medication. This medication contains acetaminophen (Tylenol). If you are taking your prescribed pain pills 4 times daily, do not take additional acetaminophen. As your pain improves, you can try taking acetaminophen instead of the prescribed pain pill. It is ok to take Ibuprofen or Naproxen (per directions on packaging). This medication helps with inflammation and swelling. Take an [id number] stool softener while you are taking prescribed pain medications to help alleviate constipation. I recommend Senna and/or Colace. Take as directed on package. If you have not had a bowel movement in 3 days, try taking Miralax as directed on the package. All of these are available over the counter. Follow-up Follow up with Dr. Howard in 2-3 weeks Please call if you are experiencing severe pain, nausea, vomiting, difficulty urinating, fever or have not had bowel movement in 4 days after surgery. Follow-up: Zeb Rosales MD [Primary Care Provider] - Brandy Howard MD [Staff Physician] - Discharge Orders: Discharge Order (Routine); Ordered 07/06/24 Ordered By: Brandy Howard Consulting provider completed their portion of the discharge: Yes
--- NOTE | 2024-07-06 10:28 | W.ANESCHARGE ---
Anesthesia Charges Start Date/Time Anesthesia Start Date: 07/06/24 Anesthesia Start Time: 10:04 Stop Date/Time Anesthesia Stop Date: 07/06/24 Anesthesia Stop Time: 11:15
[2024-07-06] MEDS: BUPIVACAINE 0.25% 30 ML INJECTION (10:58)
[2024-07-06] MEDS: LACTATED RINGERS 1000 ML 1,000 ML 75 ML IV (11:20)
--- NOTE | 2024-07-06 11:20 | W.ANESCHARGE ---
Anesthesia Charges Start Date/Time Anesthesia Start Date: 07/06/24 Anesthesia Start Time: 10:04 Stop Date/Time Anesthesia Stop Date: 07/06/24 Anesthesia Stop Time: 11:15
--- NOTE | 2024-07-06 11:21 | PM.GSPRC ---
Operative Note Date of procedure: 07/06/24 Pre-op diagnosis: Biliary colic, concern for acute cholecystitis. Post-op diagnosis: Same Type of Procedure: Laparoscopic cholecystectomy Indications: The patient is a 28-year-old female who presented to the emergency department with severe right upper quadrant pain, nausea and vomiting. Workup showed a gallstone with an elevated white blood cell count. Because her pain did not improve and she continued to be unable to take in p.o., she was admitted overnight to the hospital with plans for cholecystectomy. We discussed the risks and benefits the procedure and she agreed to proceed. Procedure Description: After discussing the risks and benefits of the procedure, the patient signed informed consent.? The operative site was marked and the patient was brought to the operating room and placed on the operating table in supine position.? Care was taken to pad the patient's pressure points.?? The patient was then intubated by anesthesia.?? The operative site was then prepped and draped in the usual sterile fashion.? A time-out was then performed. Entrance to the abdomen was gained via a 5 mm Visiport in the left upper quadrant. The abdomen was insufflated and briefly surveyed for signs of injury. There was none. A 10 mm umbilical port was placed as well as 2 working ports along the right costal margin, all under direct vision. The patient was then placed in reverse Trendelenburg position with the right side up. The gallbladder fundus was grasped and retracted cephalad. A small amount of dissection was needed to free omental adhesions from the gallbladder. The infundibulum was grasped. The gallbladder was not obviously inflamed but was dilated. A combination of hook cautery and blunt dissection was used to carefully dissect out the cystic duct and artery until they could clearly be seen entering the gallbladder without any intervening structures. The gallbladder was dissected off the cystic plate to achieve the critical view. Once this was achieved the cystic duct and artery were each clipped with 2 clips proximally and 1 clip distally and transected with the scissors. The gallbladder was then taken off of the liver bed and removed from the abdomen using an Endo-Catch bag. The gallbladder bed was surveyed for hemostasis which appeared adequate. The ports were removed and the abdomen desufflated. The umbilical port fascia was closed with 0 Vicryl in a running fashion as the fascial opening needed to be widened to accommodate the large gallbladder. The skin was closed with absorbable subcuticular suture. Sterile dressings were then applied. Instrument sponge and needle counts were correct at the end of the case. The patient was then woken and transferred to the PACU in stable condition. ? The patient tolerated the procedure well. Findings: Gallstone noted within the gallbladder. Anesthesia: GETA Surgeon: Brandy Howard MD Estimated blood loss (mL): 5 Specimen: Gallbladder Condition: stable Disposition: PACU
[2024-07-06] MEDS: fentaNYL 100 MCG/2 ML inj 50 MCG IVP (11:28)
--- NOTE | 2024-07-06 11:30 | PC.NURSE ---
Pt alert and oriented. Pt had complaints of pain rated at a 2. Pt had no complaints of nausea/vomiting. Pt taken to surgery at 10am and brought down to [facility] to recover post surgery.
[2024-07-06] MEDS: HYDROCODONE-ACETAMIN 5-325 MG 1 TAB PO (11:53)
== END 2024-07-06 12:48 | disposition home or self-care (01) ==
LOC: ED 20:50 → MEDSURG 07-06 07:41 → SS 07-06 09:21 → MEDSURG 07-06 09:21 → SS 07-06 11:37
PROVIDERS: Physician Assistant; Emergency Provider Emergency Medicine Emergency Medical Services; PCP Family Medicine; Visit Provider Surgery
PROC: 0FT44ZZ Resection of Gallbladder, Percutaneous Endoscopic Approach (ICD-10-PCS; CPT 47562; principal; 2024-07-06 09:30)
DX: K80.10 Calculus of gallbladder with chronic cholecystitis without obstruction (principal); E66.9 Obesity, unspecified; R10.11 Right upper quadrant pain; Z68.42 Body mass index [BMI] 45.0-49.9, adult; R00.0 Tachycardia, unspecified; G47.33 Obstructive sleep apnea (adult) (pediatric); F43.10 Post-traumatic stress disorder, unspecified; F41.1 Generalized anxiety disorder; F41.0 Panic disorder [episodic paroxysmal anxiety]; F42.9 Obsessive-compulsive disorder, unspecified; F31.9 Bipolar disorder, unspecified
CPT/HCPCS: 47562; 00790; 36415; 76705; 80048; 80053; 80076; 81001; 81025; 83690; 85025; 85027; 88304; 99284; 99285; A9270; G0378; J0665; J0690; J0780; J1100; J1171; J2250; J2270; J2405; J2704; J3010; J3490; J7030; J7120

== ENCOUNTER 2024-07-08 13:03 | Emergency (ER) | payer BC, SELFPAY ==
[2024-07-08 13:13] VITALS: BP 110/73; PULSE 78; RESP 18; TEMP 36.1; O2SAT 99; BMI 45.2
--- NOTE | 2024-07-08 13:43 | ED.GENADULT ---
HPI - General Adult General Chief complaint: Post Op Complication Stated complaint: shortness of breath, pain in chest, blurred vision Time Seen by Provider: 07/08/24 13:20 History of Present Illness HPI narrative: This 28-year-old female comes in reporting some mild left shoulder and upper chest discomfort. She was recently hospitalized because of cholelithiasis and associated pancreatitis. She had her gallbladder removed a couple days ago and has been doing well. She also reports some mild headache and a little bit of blurry vision. She was thinking that she did not need to come in but she called the nurse line and was instructed to come in for evaluation. She arrives here with normal vital signs. Related Data Home Medications ?Medication ?Instructions ?Recorded ?Confirmed clonazepam 0.5 mg tablet 0.5 mg PO BID PRN 06/29/23 07/06/24 lamotrigine 100 mg tablet 100 mg PO DAILY 04/05/24 07/06/24 olanzapine 5 mg tablet 5 mg PO BID PRN 04/05/24 07/06/24 metoprolol succinate 50 mg 50 mg PO DAILY 07/05/24 07/06/24 tablet,extended release 24 hr venlafaxine 37.5 mg 37.5 mg PO DAILY 07/05/24 07/06/24 capsule,extended release 24 hr hydrocodone 5 mg-acetaminophen 325 1 tab PO Q4H PRN pain 07/06/24 07/06/24 mg tablet ondansetron HCl 4 mg tablet 4 mg PO Q8H PRN nausea and vomiting 07/06/24 07/06/24 sumatriptan succinate 100 mg tablet 100 mg PO DAILY PRN 07/06/24 07/06/24 tirzepatide (weight loss) 10 10 mg subcut .WEEKLY 07/06/24 07/06/24 mg/0.5 mL subcutaneous pen injector (Zepbound) venlafaxine 75 mg capsule,extended 75 mg PO DAILY 07/06/24 07/06/24 release 24 hr Previous Rx's ?Medication ?Instructions ?Recorded hydrocodone 5 mg-acetaminophen 325 1 - 2 tab PO Q6H PRN Pain #20 tabs 07/06/24 mg tablet Allergies Allergy/AdvReac Type Severity Reaction Status Date / Time ibuprofen Allergy Severe Anaphylaxis Verified 07/05/24 13:50 ciprofloxacin (From Cipro) Allergy Mild Anxiety Verified 07/05/24 13:50 Sulfa (Sulfonamide Allergy Mild Hives Verified 07/05/24 13:50 Antibiotics) kiwi Allergy Verified 07/05/24 13:50 pineapple Allergy Verified 07/05/24 13:50 Review of Systems Status of ROS: Reports: 10 or more systems reviewed and unremarkable except as noted in History and below Narrative: Constitutional: No fevers, no weight gain or loss. Eyes: No discharge. No vision changes. HENT: No congestion, no sore throat, no ear pain. Cardiovascular: No palpitations. Respiratory: No shortness of breath, no wheezes, no cough. Gastrointestinal: No vomiting, no diarrhea. Abdominal pain status post cholecystectomy Genitourinary: No dysuria, no hematuria. Musculoskeletal: Normal range of motion. Skin: No rashes, no pruritis. Neurological: No dizziness, weakness, sensory change, speech change. Endo/Heme/Allergies: No bruising or bleeding. No polydipsia. Pysch: no suicidality, no anxiety, no insomnia. All other systems reviewed and are negative. [facility] Medical History (Updated 07/08/24 @ 13:52 by Luis Edward MD) Obesity ?E66.9 - Obesity, unspecified (ICD-10) Aneurysm of anterior cerebral artery ?I67.1 - Cerebral aneurysm, nonruptured (ICD-10) Sinus tachycardia ?R00.0 - Tachycardia, unspecified (ICD-10) PTSD (post-traumatic stress disorder) ?F43.10 - Post-traumatic stress disorder, unspecified (ICD-10) Panic disorder ?F41.0 - Panic disorder [episodic paroxysmal anxiety] (ICD-10) JUAN PABLO (obstructive sleep apnea) ?G47.33 - Obstructive sleep apnea (adult) (pediatric) (ICD-10) Depression ?F32.A - Depression, unspecified (ICD-10) Surgical History History of open reduction and internal fixation (ORIF) procedure ?Z98.890 - Other specified postprocedural states (ICD-10) Family History Mother Addiction to drug Alcohol dependence Father Addiction to drug Alcohol dependence Maternal Grandmother Diabetes Maternal Grandfather Heart disease Paternal Grandmother Diabetes Paternal Grandfather Diabetes Social History What is your current living situation?: I presently have a place to live Problems where you live: no known problems Problems where you live details: N/A In the past 12 months, utilities in danger of being shut off: no In the past 12 mos, have been you worried that your food would run out before you had money to buy more?: never true In the past 12 mos, the food you bought just didn't last and you didn't have money to buy more?: never true Highest level of school completed/degree received: some college, no degree Smoking Status: Former smoker Second hand tobacco smoke exposure: Yes (Mother smokes) How often do you have a drink containing alcohol: never How often do you have six or more drinks on one occasion: Never AUDIT-C Alcohol total score: 0 Non-prescribed substance use: denies use Caffeine: No How often does anyone, including family, friends and others, physically hurt you: never How often does anyone, including family, friends and others, insult or talk down to you: never How often does anyone, including family, friends and others, threaten you with harm: never How often does anyone, including family, friends and others, scream or curse at you: never service: No Exam Narrative: Exam Narrative: Constitutional: Well-developed, well-nourished, no acute distress. HEENT: Normocephalic, atraumatic. Neck: Normal range of motion. Nontender. Supple. Heart: Regular. No murmurs. Normal rate. Intact distal pulses. Lungs: Clear to auscultation. No wheezes, rhonchi, or rales. Abdomen: Normal bowel sounds. Abdominal pain status post cholecystectomy. Genitalia: Deferred. Back: No midline tenderness. Normal range of motion. Extremities: Normal range of motion. No injury. Skin: Intact. No rash. Warm. No erythema or pallor. Neurologic: No altered sensation. No weakness. Alert and oriented. Psychiatric: No suicidality. No anxiety or depression. No insomnia. Nursing notes and vitals signs are reviewed. Const: Vital Signs, click to edit/add: Vital Signs - 24 hr 07/08/24 13:13 Temperature 97 F L Pulse Rate [Pulse Oximeter] 78 Respiratory Rate 18 Blood Pressure [Ri ght Upper Arm] 110/73 Pulse Oximetry 99 Oxygen Delivery Me thod Room Air Course Vital Signs Vital signs: Initial Vital Signs Temperature 97 F L 07/08/24 13:13 Temperature Source Temporal Artery Scan 07/08/24 13:13 Pulse Rate 78 07/08/24 13:13 Respiratory Rate 18 07/08/24 13:13 Blood Pressure 110/73 07/08/24 13:13 Blood Pressure Mean 85 07/08/24 13:13 Blood Pressure Position Sitting 07/08/24 13:13 Pulse Oximetry 99 07/08/24 13:13 Oxygen Delivery Method Room Air 07/08/24 13:13 Vital Signs Temperature 97 F L 07/08/24 13:13 Pulse Rate 78 07/08/24 13:13 Respiratory Rate 18 07/08/24 13:13 Blood Pressure 110/73 07/08/24 13:13 Pulse Oximetry 99 07/08/24 13:13 Oxygen Delivery Method Room Air 07/08/24 13:13 Temperature 97 F L 07/08/24 13:13 Pulse Rate 78 07/08/24 13:13 Respiratory Rate 18 07/08/24 13:13 Blood Pressure 110/73 07/08/24 13:13 Pulse Oximetry 99 07/08/24 13:13 Oxygen Delivery Method Room Air 07/08/24 13:13 Medical Decision Making MDM Narrative Medical decision making narrative: This patient had a cholecystectomy a couple days ago and comes in because she was instructed to after stating that she had some mild blurry vision this morning when calling into the nurse line. She also does report some diffuse chest discomfort. She is in no acute distress and states that she would otherwise not have come in except for what which she was told by the nurse over the phone. She arrives here with normal vital signs and her exam is normal except for typical symptoms after having abdominal surgery. I did offer lab and imaging studies which she declined. I did provide in [facility] prescription for some more tablets of [place] as she was only able to get 12 tablets throughout this time because of a restriction on her insurance coming just from her regular provider. Discharge Plan Discharge Clinical Impression: Atypical chest pain Patient Disposition: Home, Self-Care Condition: Stable Additional Instructions: Take medication as prescribed and needed. Follow up with MD or return if worsening. Prescriptions: No Action clonazepam 0.5 mg tablet 0.5 mg PO BID PRN lamotrigine 100 mg tablet 100 mg PO DAILY olanzapine 5 mg tablet 5 mg PO BID PRN sumatriptan succinate 100 mg tablet 100 mg PO DAILY PRN Zepbound 10 mg/0.5 mL pen injector 10 mg subcut .WEEKLY venlafaxine 75 mg capsule,extended release 24hr 75 mg PO DAILY hydrocodone-acetaminophen 5-325 mg tablet 1 tab PO Q4H PRN (Reason: pain) ondansetron HCl 4 mg tablet 4 mg PO Q8H PRN (Reason: nausea and vomiting) hydrocodone-acetaminophen 5-325 mg Tablet 1 - 2 tab PO Q6H PRN (Reason: Pain) Qty: 20 0RF venlafaxine 37.5 mg capsule,extended release 24hr 37.5 mg PO DAILY metoprolol succinate 50 mg tablet extended release 24 hr 50 mg PO DAILY Follow Up/Referrals: Zeb Rosales MD [Primary Care Provider] - Stand Alone Forms: [facility] Info Instructions
== END 2024-07-08 14:13 | disposition home or self-care (01) ==
LOC: ED 14:00
PROVIDERS: Emergency Provider Emergency Medicine Emergency Medical Services; PCP Family Medicine
DX: R07.9 Chest pain, unspecified (principal)
CPT/HCPCS: 99284

== ENCOUNTER 2024-07-20 20:51 | Emergency (ER) | payer BC, SELFPAY ==
[2024-07-20 21:11] VITALS: BP 113/75; PULSE 64; RESP 18; TEMP 36.6; O2SAT 98; BMI 44.1
[2024-07-20 22:18] VITALS: BP 111/57; PULSE 76; RESP 16; TEMP 36.3; O2SAT 99
--- NOTE | 2024-07-20 22:26 | ED_ITS ---
HPI - General Adult General Chief complaint: Abdominal Pain Stated complaint: felt pop in abd, surgery 2 weeks ago Time Seen by Provider: 07/20/24 21:04 History of Present Illness HPI narrative: Lap mohamud 2 weeks ago, had post op appt w/ Lee yesterday. Today lifted a 50lb object off the floor and felt a pop when twisting body. Had subsequent nausea w/ emesis x1, slight nausea remains along pain L upper lap site. 29-year-old woman presenting to the emergency department with concern of postoperative pain in her upper left abdomen. Had a laparoscopic cholecystectomy 2 weeks ago. I do review records. This looks to have been uneventful. She is worried that she may have popped a stitch. Was lifting a 50 lb object off the floor today and felt a pop when twisting. She did vomit. Still a little nauseated. Pain has persisted in the left upper abdomen site of 1 trocar port. Has not had a fever. No disruption of the skin visibly. No drainage. Did have a postop General surgery follow-up appointment day and half ago. For review of record recommended to avoid lifting anything more than 20 lb for total of 4 weeks postop. Related Data Home Medications ?Medication ?Instructions ?Recorded ?Confirmed clonazepam 0.5 mg tablet 0.5 mg PO BID PRN 06/29/23 07/18/24 olanzapine 5 mg tablet 5 mg PO BID PRN 04/05/24 07/18/24 metoprolol succinate 50 mg 50 mg PO DAILY 07/05/24 07/18/24 tablet,extended release 24 hr ondansetron HCl 4 mg tablet 4 mg PO Q8H PRN nausea and vomiting 07/06/24 07/18/24 citalopram 10 mg tablet 10 mg PO QDAY 07/18/24 07/18/24 lamotrigine 100 mg tablet 150 mg PO DAILY 07/18/24 07/18/24 tirzepatide (weight loss) 10 7.5 mg subcut .WEEKLY 07/18/24 07/18/24 mg/0.5 mL subcutaneous pen injector (Zepbound) Allergies Allergy/AdvReac Type Severity Reaction Status Date / Time ibuprofen Allergy Severe Anaphylaxis Verified 07/18/24 14:53 ciprofloxacin (From Cipro) Allergy Mild Anxiety Verified 07/18/24 14:53 Sulfa (Sulfonamide Allergy Mild Hives Verified 07/18/24 14:53 Antibiotics) kiwi Allergy Verified 07/18/24 14:53 pineapple Allergy Verified 07/18/24 14:53 Review of Systems Status of ROS: Reports: 6 or more systems reviewed and unremarkable except as noted in History and below [facility] Medical History Obesity ?E66.9 - Obesity, unspecified (ICD-10) Aneurysm of anterior cerebral artery ?I67.1 - Cerebral aneurysm, nonruptured (ICD-10) Sinus tachycardia ?R00.0 - Tachycardia, unspecified (ICD-10) PTSD (post-traumatic stress disorder) ?F43.10 - Post-traumatic stress disorder, unspecified (ICD-10) Panic disorder ?F41.0 - Panic disorder [episodic paroxysmal anxiety] (ICD-10) JUAN PABLO (obstructive sleep apnea) ?G47.33 - Obstructive sleep apnea (adult) (pediatric) (ICD-10) Depression ?F32.A - Depression, unspecified (ICD-10) Surgical History History of open reduction and internal fixation (ORIF) procedure ?Z98.890 - Other specified postprocedural states (ICD-10) Family History Mother Addiction to drug Alcohol dependence Father Addiction to drug Alcohol dependence Maternal Grandmother Diabetes Maternal Grandfather Heart disease Paternal Grandmother Diabetes Paternal Grandfather Diabetes Social History What is your current living situation?: I presently have a place to live Problems where you live: no known problems Problems where you live details: N/A In the past 12 months, utilities in danger of being shut off: no In the past 12 mos, have been you worried that your food would run out before you had money to buy more?: never true In the past 12 mos, the food you bought just didn't last and you didn't have money to buy more?: never true Highest level of school completed/degree received: some college, no degree Smoking Status: Former smoker Second hand tobacco smoke exposure: Yes (Mother smokes) How often do you have a drink containing alcohol: never How often do you have six or more drinks on one occasion: Never AUDIT-C Alcohol total score: 0 Non-prescribed substance use: denies use Caffeine: No How often does anyone, including family, friends and others, physically hurt you : never How often does anyone, including family, friends and others, insult or talk down to you: never How often does anyone, including family, friends and others, threaten you with harm: never How often does anyone, including family, friends and others, scream or curse at you: never service: No Exam Narrative: Exam Narrative: Pleasant. NAD. Breathing easily. Here with appropriately attentive spouse. Skin is warm and dry. Abdomen is soft. Expectedly tender at trocar/incision sites. I do not see unusual swelling or erythema and no disruption of the skin. Heart in regular rate and rhythm. Const: Vital Signs, click to edit/add: Vital Signs - 24 hr 07/20/24 21:11 07/20/24 22:18 Temperature 97.9 F 97.4 F L Pulse Rate [Pulse Oximeter] 64 76 Respiratory Rate 18 16 Blood Pressure [Ri ght Upper Arm] 113/75 111/57 L Pulse Oximetry 98 99 Oxygen Delivery Me thod Room Air Room Air Documenting provider has reviewed patient's vital signs: yes Course Vital Signs Vital signs: Initial Vital Signs Temperature 97.9 F 07/20/24 21:11 Temperature Source Temporal Artery Scan 07/20/24 21:11 Pulse Rate 64 07/20/24 21:11 Respiratory Rate 18 07/20/24 21:11 Blood Pressure 113/75 07/20/24 21:11 Blood Pressure Mean 87 07/20/24 21:11 Blood Pressure Position Sitting 07/20/24 21:11 Pulse Oximetry 98 07/20/24 21:11 Oxygen Delivery Method Room Air 07/20/24 21:11 Vital Signs Temperature 97.9 F 07/20/24 21:11 Pulse Rate 64 07/20/24 21:11 Respiratory Rate 18 07/20/24 21:11 Blood Pressure 113/75 07/20/24 21:11 Pulse Oximetry 98 07/20/24 21:11 Oxygen Delivery Method Room Air 07/20/24 21:11 Temperature 97.4 F L 07/20/24 22:58 Pulse Rate 88 07/20/24 22:58 Respiratory Rate 16 07/20/24 22:58 Blood Pressure 111/57 L 07/20/24 22:18 Pulse Oximetry 99 07/20/24 22:18 Oxygen Delivery Method Room Air 07/20/24 22:18 Medical Decision Making MDM Narrative Medical decision making narrative: Uncertain what is occurring here. Would be more concerned if pain represents other bleeding. It has been 2 weeks now. Should be well-healed from limited suturing internally. Discomfort and presumed injury site is not in the area of the gallbladder. Even if there was a ?popped? suture in this area, I do not think that this should cause too much problem. Abdominal exam is reassuring. In order to verify that anything is truly not amiss, would need CT imaging. I think watchful waiting could be enacted here. Discussed this with Kami and her and they are considering. I did have a conversation with General surgery having just seen Kami. Affirming these 2 options. In a process of shared decision making Kami decides to go home and monitor for improvement or worsening. See patient discharge plan for further discussion Medical Records Medical records reviewed: Yes I reviewed the patient's medical records Discharge Plan Discharge Clinical Impression: Post-operative pain Patient Disposition: Home w/ Parent or Adult Condition: Improved Additional Instructions: Your abdominal exam overall I would say is reassuring at this time. Without imaging, as discussed, I cannot tell you exactly what happened. I think you can take your pain pills yet tonight. Watch for marked increase in persistent pain, repeated vomiting, fever as reasons to be re-evaluated. Prescriptions: No Action clonazepam 0.5 mg tablet 0.5 mg PO BID PRN olanzapine 5 mg tablet 5 mg PO BID PRN lamotrigine 100 mg tablet 150 mg PO DAILY citalopram 10 mg tablet 10 mg PO QDAY ondansetron HCl 4 mg tablet 4 mg PO Q8H PRN (Reason: nausea and vomiting) Zepbound 10 mg/0.5 mL pen injector 7.5 mg subcut .WEEKLY metoprolol succinate 50 mg tablet extended release 24 hr 50 mg PO DAILY Follow Up/Referrals: Светлана Malik DO [Primary Care Provider] - [facility]
[2024-07-20 22:58] VITALS: PULSE 88; RESP 16; TEMP 36.3
== END 2024-07-20 23:07 | disposition home or self-care (01) ==
PROVIDERS: Emergency Provider Family Medicine; PCP Family Medicine
DX: R10.12 Left upper quadrant pain (principal); G89.18 Other acute postprocedural pain
CPT/HCPCS: 99283; 99284

== ENCOUNTER 2024-11-01 20:39 | Emergency (ER) | payer BC, SELFPAY ==
[2024-11-01 20:43] VITALS: BP 108/69; PULSE 75; RESP 14; TEMP 36.3; O2SAT 99
--- NOTE | 2024-11-01 21:16 | ED_ITS ---
HPI - General Adult General Chief complaint: Vaginal Bleeding Stated complaint: cramping/bleeding, 5 wks preg Time Seen by Provider: 11/01/24 20:59 History of Present Illness HPI narrative: Patient is 5.5 weeks complains of new cramping and bleeding. Had gush of blood when using the bathroom, has since stopped. 29-year-old woman presenting to the emergency department with concern of vaginal bleeding. By basal body temperature is and LH measurements she would estimate herself to be 5 weeks and 2 days . LMP would suggest 5 and half weeks. This is with 1 miscarriage. She is blood type O positive she reports. Had actually had a positive confirmatory test in clinic today. When using the bathroom this evening had a gush of blood. Has not really been bleeding since. Still feels nauseated and with breast tenderness. Related Data Home Medications ?Medication ?Instructions ?Recorded ?Confirmed clonazepam 0.5 mg tablet 0.5 mg PO BID PRN 06/29/23 11/01/24 metoprolol succinate 50 mg 50 mg PO DAILY 07/05/24 11/01/24 tablet,extended release 24 hr ondansetron HCl 4 mg tablet 4 mg PO Q8H PRN nausea and vomiting 07/06/24 11/01/24 citalopram 10 mg tablet 10 mg PO QDAY 07/18/24 11/01/24 lamotrigine 100 mg tablet 150 mg PO DAILY 07/18/24 11/01/24 tirzepatide (weight loss) 10 7.5 mg subcut .WEEKLY 07/18/24 07/18/24 mg/0.5 mL subcutaneous pen injector (Zepbound) Allergies Allergy/AdvReac Type Severity Reaction Status Date / Time ibuprofen Allergy Severe Anaphylaxis Verified 11/01/24 20:49 ciprofloxacin (From Cipro) Allergy Mild Anxiety Verified 11/01/24 20:49 Sulfa (Sulfonamide Allergy Mild Hives Verified 11/01/24 20:49 Antibiotics) kiwi Allergy Verified 11/01/24 20:49 pineapple Allergy Verified 11/01/24 20:49 Review of Systems Status of ROS: Reports: 6 or more systems reviewed and unremarkable except as noted in History and below PFSH PFS Medical History Obesity ?E66.9 - Obesity, unspecified (ICD-10) Aneurysm of anterior cerebral artery ?I67.1 - Cerebral aneurysm, nonruptured (ICD-10) Sinus tachycardia ?R00.0 - Tachycardia, unspecified (ICD-10) PTSD (post-traumatic stress disorder) ?F43.10 - Post-traumatic stress disorder, unspecified (ICD-10) Panic disorder ?F41.0 - Panic disorder [episodic paroxysmal anxiety] (ICD-10) JUAN PABLO (obstructive sleep apnea) ?G47.33 - Obstructive sleep apnea (adult) (pediatric) (ICD-10) Depression ?F32.A - Depression, unspecified (ICD-10) Surgical History History of open reduction and internal fixation (ORIF) procedure ?Z98.890 - Other specified postprocedural states (ICD-10) Family History Mother Addiction to drug Alcohol dependence Father Addiction to drug Alcohol dependence Maternal Grandmother Diabetes Maternal Grandfather Heart disease Paternal Grandmother Diabetes Paternal Grandfather Diabetes Social History What is your current living situation?: I presently have a place to live Problems where you live: no known problems Problems where you live details: N/A In the past 12 months, utilities in danger of being shut off: no In past 12 months, lack of transportation kept you from medical appts, meetings, work, or getting things needed for daily living: no In the past 12 mos, have been you worried that your food would run out before you had money to buy more?: never true In the past 12 mos, the food you bought just didn't last and you didn't have money to buy more?: never true Highest level of school completed/degree received: some college, no degree Smoking Status: Former smoker Second hand tobacco smoke exposure: Yes (Mother smokes) How often do you have a drink containing alcohol: never How often do you have six or more drinks on one occasion: Never AUDIT-C Alcohol total score: 0 Non-prescribed substance use: denies use Caffeine: No How often does anyone, including family, friends and others, physically hurt you : never How often does anyone, including family, friends and others, insult or talk down to you: never How often does anyone, including family, friends and others, threaten you with harm: never How often does anyone, including family, friends and others, scream or curse at you: never service: No Exam Narrative: Exam Narrative: Pleasant. Here with supportive spouse. Skin is warm and dry. Heart in regular rate. She is breathing easily. Abdomen is overweight and soft with some left pelvic tenderness. No masses noted She does not have any flank pain. Well- perfused peripherally. exam is not done. Const: Vital Signs, click to edit/add: Vital Signs - 24 hr 11/01/24 20:43 Temperature 97.3 F L Pulse Rate [Pulse Oximeter] 75 Respiratory Rate 14 Blood Pressure [Ri ght Upper Arm] 108/69 Pulse Oximetry 99 Documenting provider has reviewed patient's vital signs: yes Course Vital Signs Vital signs: Initial Vital Signs Temperature 97.3 F L 11/01/24 20:43 Temperature Source Temporal Artery Scan 11/01/24 20:43 Pulse Rate 75 11/01/24 20:43 Respiratory Rate 14 11/01/24 20:43 Blood Pressure 108/69 11/01/24 20:43 Blood Pressure Mean 82 11/01/24 20:43 Pulse Oximetry 99 11/01/24 20:43 Vital Signs Temperature 97.3 F L 11/01/24 20:43 Pulse Rate 75 11/01/24 20:43 Respiratory Rate 14 11/01/24 20:43 Blood Pressure 108/69 11/01/24 20:43 Pulse Oximetry 99 11/01/24 20:43 Temperature 97.3 F L 11/01/24 20:43 Pulse Rate 75 11/01/24 20:43 Respiratory Rate 14 11/01/24 20:43 Blood Pressure 108/69 11/01/24 20:43 Pulse Oximetry 99 11/01/24 20:43 Medical Decision Making MDM Narrative Medical decision making narrative: This may have been a subchorionic bleed. In any case will try to offer confirmatory ultrasound. This is rather early however. If there are inco nclusive findings, will draw labs at that time. O-positive blood should not need RhoGAM. Miscarriage or ectopic I suppose is also possible. Discussed findings with furnace combustion tester. Did visualize a gestational sac sac. Understandably not noting cardiac activity at this point. No evidence of perigestational bleeding. scarring and some pericystic structures/fluid complicating imaging little bit. Will check some baseline labs, partly for follow-up, but I do not think this necessitates further stay in the emergency department. Otherwise well without further bleeding. Radiology over-read noted later INDICATION: Bleeding and cramping. TECHNIQUE: Ultrasound OB pelvis transvaginal. Real-time bruce-scale imaging of the pelvis was performed. COMPARISON: Pelvic ultrasound 11/01/2024. FINDINGS: Evaluation limited by body habitus. Small anechoic structure at the fundal endometrium, which may represent an intrauterine gestational sac. No yolk sac is visualized. The mean diameter (if this represents a gestational sac) measures 0.3 cm, corresponding to a gestational age of 5 weeks. section scar with adjacent cystic structures. The ovaries are not visualized. There are no suspicious fluid collections noted in the cul-de-sac. IMPRESSION: 1. Small anechoic structure at the fundal endometrium, which may represent an intrauterine gestational sac. Mean diameter of this structure measures 0.3 cm, corresponding to a gestational age of 5 weeks. 2. Nonvisualization of the ovaries. Dictated by Salo Golden MD @ 11/01/2024 11:06:47 PM See patient discharge plan for further discussion Stay well-hydrated. Should you have return of bleeding, return for bleeding such that your soaking 1 overnight pads an hour for 2 consecutive hours, marked increase in pain, fever. I will call you if there is anything concerning in your blood work. Otherwise these will just be baseline labs for you and pending any changes in this . I will also call you if Radiology has anything more significant to say in their over-read of the ultrasound. Medical Records Medical records reviewed: Yes I reviewed the patient's medical records Lab Data Lab results reviewed: Yes I reviewed the patient's lab results Labs: Lab Results 11/01/24 Range/Units 22:50 WBC 10.49 (4.50-11.00) K/uL RBC 4.56 (4.00-5.20) m/uL Hgb 11.2 L (12.0-16.0) gm/dL Hct 35.8 (33.0-51.0) % MCV 79 L (80-100) fL MCH 25 L (26-34) pg MCHC 31 L (32-36) gm/dL RDW Coeff of Gladis 15.2 (11.5-15.5) % Plt Count 445 H (140-440) K/uL Neut % (Auto) 54.8 (42.0-72.0) % Lymph % (Auto) 34.8 (20-44) % [place] % (Auto) 7.7 (0.0-11.0) % Eos % (Auto) 2.0 (0.0-7.0) % Baso % (Auto) 0.5 (0.0-3.0) % Neut # (Auto) 5.75 (1.7-7.0) K/uL Lymph # (Auto) 3.65 H (0.90-2.90) K/uL [place] # (Auto) 0.80 (0.00-0.90) K/UL Eos # (Auto) 0.21 (0.00-0.50) K/uL Baso # (Auto) 0.05 (0.00-0.30) K/uL Abs Immat Gran (auto) 0.02 (0.00-0.30) K/uL Imm/Tot Granulo (auto) 0.2 % HCG, Quant 755.21 mIU/mL Blood Type O Positive Discharge Plan Discharge Clinical Impression: Bleeding in early Patient Disposition: Home w/ Parent or Adult Condition: Improved Additional Instructions: Stay well-hydrated. Should you have return of bleeding, return for bleeding such that your soaking 1 overnight pads an hour for 2 consecutive hours, marked increase in pain, fever. I will call you if there is anything concerning in your blood work. Otherwise these will just be baseline labs for you and pending any changes in this . I will also call you if Radiology has anything more significant to say in their over-read of the ultrasound. Prescriptions: No Action clonazepam 0.5 mg tablet 0.5 mg PO BID PRN lamotrigine 100 mg tablet 150 mg PO DAILY citalopram 10 mg tablet 10 mg PO QDAY ondansetron HCl 4 mg tablet 4 mg PO Q8H PRN (Reason: nausea and vomiting) Zepbound 10 mg/0.5 mL pen injector 7.5 mg subcut .WEEKLY metoprolol succinate 50 mg tablet extended release 24 hr 50 mg PO DAILY Follow Up/Referrals: Светлана Malik DO [Primary Care Provider] - Stand Alone Forms: 1[employer] Info Instructions
--- NOTE | 2024-11-01 21:25 | CRLHL7_ITS ---
For Patients: As a result of the Century Cures Act, medical imaging exams and procedure reports are released immediately into your electronic medical record. You may view this report before your referring provider. If you have questions, please contact your health care provider. INDICATION: Bleeding and cramping. TECHNIQUE: Ultrasound OB pelvis transvaginal. Real-time bruce-scale imaging of the pelvis was performed. COMPARISON: Pelvic ultrasound 11/01/2024. FINDINGS: Evaluation limited by body habitus. Small anechoic structure at the fundal endometrium, which may represent an intrauterine gestational sac. No yolk sac is visualized. The mean diameter (if this represents a gestational sac) measures 0.3 cm, corresponding to a gestational age of 5 weeks. section scar with adjacent cystic structures. The ovaries are not visualized. There are no suspicious fluid collections noted in the cul-de-sac. IMPRESSION: 1. Small anechoic structure at the fundal endometrium, which may represent an intrauterine gestational sac. Mean diameter of this structure measures 0.3 cm, corresponding to a gestational age of 5 weeks. 2. Nonvisualization of the ovaries. Dictated by Salo Golden MD @ 11/01/2024 11:06:47 PM (Electronically Signed)
--- OUTSIDE RECORDS SUMMARY | 2024-11-01 21:32 | XMS_ITS | Clinical Summary ---
Author Organization [facility] Address [address] [place] [address] Care Team Providers Care Health Care Coordinator Name Role Phone Kaitlin Hunter MD Primary Care Provider [phone] Serena Temple MD Unavailable [phone] Allergies Active Allergy Reactions Criticality Noted Date Comments Ibuprofen Swelling, lips/tongue,Rash High 6 Kiwi Hives Medium 10/08/2021 Medications levonorgestreL (MIRENA) 20 mcg/24 hours (6 yrs) 52 mg IU IUD 1 Device by Intrauterine route ONCE. Active Mth-Me Blue-Sod Idgd-XqDdt-Erl (URIBEL) 118-10-40.8-36 mg oral Cap Take 1 tablet by mouth. 2 Active Tubing and Mask for CPAPIndications :JUAN PABLO (obstructive sleep apnea) 1 each by Misc.(Non-Drug; Combo Route) route as directed. 1 each 11 2 Active ondansetron (ZOFRAN) 4 mg oral ODTIndications: Nausea Dissolve 1 tablet (4 mg) in mouth every 8 (eight) hours as needed for nausea. 20 tablet 2 Active desvenlafaxine succinate (PRISTIQ) 50 mg oral extended release tablet 24 HRIndications:G AD (generalized anxiety disorder),Mild episode of recurrent major depressive disorder (HCC) Take 1 tablet (50 mg) by mouth once daily. 30 tablet 2 Active Active Problems Problem Noted Date Diagnosed Date Syncope, unspecified syncope type 10/22/2021 Overview (10/22/2021): Added automatically from request for surgery [id number] JUAN PABLO (obstructive sleep apnea) 10/01/2021 Overview (10/02/2021): AHI 10, desats to 84% HST Rx 5-20 ADAPT Anesthesia complication 12/11/2020 Overview (12/11/2020): wakes up during procedure Anemia 12/11/2020 IUD (intrauterine device) in place 11/14/2020 Overview (11/14/2020): Due for removal 10/2025 Endometriosis determined by laparoscopy 10/21/19 Overview (11/14/2020): Stage 2; Dr. Street Mild tetrahydrocannabinol (T HC) abuse in sustained remission 06/10/2017 Overview (12/11/2020): Few times per week: Quit with + UPT Mild episode of recurrent major depressive disor davida 05/01/2016 Panic attack 05/01/2016 PTSD (post-traumatic stress disorder) 05/01/2016 Obesity, morbid, BMI 40.0-49.9 06/18/2015 Tobacco use disorder 06/18/2015 LOGAN (generalized anxiety disorder) Resolved Problems Problem Noted Date Diagnosed Date Resolved Date Anxiety 08/22/2001 07/28/2020 Overview (07/03/2019): Ativan PRN Immunizations Name Administration Dates Next Due DTP 03/14/1997 DTaP (Infanrix) 03/14/1997 DTaP/HIB 03/18/1998, 7,1993,11/10,1993 HPV Quadrivalent 10/31/2008,06/24/2008,08/14/200 8 Hep A Adult 04/10/2013 Hep A Immune Globulin 04/10/2013 Hep B Pediatric 01/18/1995,1993,1993 Influenza recombinant (FluBl ok Quadrivalent PF) 06/12/2017 Influenza split virus quadrivalent 05/15/2021,,07/03/2019 MMR 03/18/1998,01/18/1995 Meningococcal MCV4P 04/14/2011 Pfizer 12+ Yrs Monovalent CO VID Vaccine (purple cap) 09/25/2021,02/23/2021,02/02/2021 Polio IPV 04/02/1999, 8,1993,09/10 Rabies IM Fibroblast Culture 09/15/2020,09/01/19,08/25/2020 Td 10/14/2020 Td adult absorbed PF (2 Lf) 08/02/2005 Tdap 04/10/2013 Varicella 04/14/2011,08/27/2002 Family History Medical History Relation Comments Alcohol Abuse Father Diabetes Father Heart Disease Father arrythmia Other Disease Maternal Aunt tempromesial scl erosis Heart Disease Maternal Grandfather High Blood Pressure Maternal Grandfather High Cholesterol Maternal Grandfather Leukemia Maternal Grandfather Other Disease Maternal Grandfather autoimmune encephalitis Mental Illness Maternal Grandmother bipolar Other Disease Maternal Grandmother stiff man s yndrome Thyroid Disease Maternal Grandmother Alcohol Abuse Mother Anxiety Mother High Blood Pressure Mother Other Disease Mother sarcoidosis Thyroid Disease Mother Diabetes Paternal Grandfather Heart Disease Paternal Grandfather High Blood Pressure Paternal Grandfather Kidney Disease Paternal Grandfather Other Disease Paternal Grandfather Crohns? Urinary Bladder Cancer Paternal Grandfather Anesthetic Reaction Paternal Grandmother Diabetes Paternal Grandmother Lung Cancer Paternal Grandmother Relation Status Comments Father Alive Maternal Aunt Maternal Grandfather Alive Maternal Grandmother Alive Mother Alive Paternal Grandfather Paternal Grandmother Social History Tobacco Use Types Packs/Day Years Used Date Smoking Tobacco: Former Cigarettes 0.3 5 Smokeless Tobacco: Never Alcohol Use Standard Drinks/Week Comments Not Currently 0 (1 standard drink = 0.6 oz pur e alcohol) AUDIT-C Answer Date Recorded Q1: How often do you have a drink containing alc ohol? Never 10/23/2021 Q2: How many drinks containi ng alcohol do you have on a typical day when you are drinking? 1 or 2 10/23/2021 Q3: How often do you have six or more drinks on one occasion? Never 10/23/2021 PHQ-2 Answer Date Recorded PHQ9 Total Score, calculated 5 11/2021 Exercise Vital Sign Answer Date Recorde d On average, how many days pe r week do you engage in moderate to strenuous exercise (like a brisk walk)? 7 days 10/23/2021 On average, how many minutes do you engage in exercise at this level? 60 min 10/23/2021 Hunger Vital Sign Answer Date Recorded Within the past 12 months, y ou worried that your food would run out before you got the money to buy more. Never true 10/24/19 Within the past 12 months, t he food you bought just didn't last and you didn't have money to get more. Never true 10/23/2021 Comments No Sex and Gender Information Value Date Recorded Sex Assigned at Female 07/02/2021 11:07 AM FAMILY PSYCHOLOGIST Legal Sex Female 4:50 PM CDT Gender Identity Female 07/02/2021 11:07 AM FAMILY PSYCHOLOGIST Sexual Orientation Bisexual 07/02/2021 11 :07 AM FAMILY PSYCHOLOGIST Last Filed Vital Signs Vital Sign Reading Time Taken Comments Blood Pressure 143/96 03/23/2022 7:45 PM CDT Pulse 88 03/23/2022 7:45 PM CDT Temperature 36.7 C (98.1 F) 03/23/2022 7:45 PM CDT Respiratory Rate 19 03/23/2022 7:45 PM CDT Oxygen Saturation 99% 03/23/2022 7:45 PM CDT Inhaled Oxygen Concentration - - Weight 131.1 kg (289 lb) 01/27/2022 11:14 AM CDT Height 172.7 cm (5' 8) 03/22/2022 3:34 PM CDT Body Mass Index 43.94 01/27/2022 11:14 AM CDT Plan of Treatment Health Maintenance Due Date Last Done Comments Anxiety Follow-Up (LOGAN-7) 1994 Depression Follow-Up (PHQ-9) 1994 Pap Smear 04/30/2023 04/30/2020 COVID-19 Vaccine ( season) 2024 09/25/2021, 02/23/2021, 02/02/2021 Influenza Vaccine (#1) 2024 , 07/04/2020, 07/03/2019, Additional history exists Colonoscopy 12/23/2024 12/24/2019 Adult Tetanus Booster 10/14/2030 10/14/2020 , 04/10/2013, 08/02/2005 RSV Vaccines (1 - 1-dose 75+ series) 2068 Hepatitis C Screening Completed 04/30/2020 Pneumococcal Vaccine Aged Out No long er eligible based on patient's age to complete this topic Procedures Procedure Name Priority Date/Time Associated Diagnosis Comments PAP WITH HPV-HR REFLEX Routine 04/30/2020 6:28 PM CDT Screening for cervical cancer HEP C ANTIBODY Routine 04/30/2020 5:54 PM CDT Screening for STDs (sexually transmitted diseases) from Last 3 Months or Most Recently Relevant to Health Maintenance Results * PAP TEST WITH HPV-HR REFLEX (04/30/2020 6:28 PM CDT) Case Report Pap Smear Case: [id number] Authorizing Provider: Georgina Metzger PA-C Collected: 04/30/2020 06:28 PM Ordering Location: [facility] - Received: 05/01/2020 05:56 PM [facility] First Screen: Sumi Myrick Specimen: Cervical Thin Prep (HPV Reflex) [place] Operator Screen, Cervix 05/05/2020 3:37 PM CDT [facility] Interpretation Negative for intraepithelial lesion or malignant cells. 05/05/2020 3:37 PM CDT [facility] Specimen Adequacy Satisfactory for evaluation. Endocervical/trans formation zone component absent. 05/05/2020 3:37 PM CDT [facility] LMP 04/30/2020 05/05/2020 3:37 PM CDT [facility] Pap Disclaimer This specimen was screened by the ThinPrep Imaging System prior to manual review by a solderer furnace and/or pathologist. The Pap test is a screening test and has an irreducible false-negative rate. Routine periodic testing and follow-up of unexplained clinical signs and symptoms are important to minimize the consequence of false-negative Pap tests. Massdelia et al. 2012 Updated Consensus Guidelines for the Management of Abnormal Cervical Cancer Screening Tests and Cancer Precursors. J Low Genit Tract Dis 2013; 17 (5): S2-S27 05/05/2020 3:37 PM CDT [facility] Vaginal and cervical cytologic material (specimen) CERVIX UTERI STRUCTURE / Unknown 04/30/2020 6:28 PM CDT 05/01/2020 5:56 PM CDT Comment:No LMP recorded. (Me nstrual status: IUD). Georgina Metzger PA-C PATHOLOGY/CYTOLOGY ORDERABLE F inal Result Performing Organization Address City/[facility]/ZIP Co de Phone Number [facility] [address] [place] [id number] * HEP C ANTIBODY (04/30/2020 5:54 PM CDT) Hepatitis C Antibody Non-Reacti ve Non-Reacti ve 05/01/2020 1:06 PM CDT [facility] Blood specimen (specimen) VENOUS BLOOD SPECIMEN / Unknown 04/30/2020 5:54 PM CDT 05/01/2020 11:44 AM CDT Georgina Metzger PA-C IMMUNOLOGY ORDERABLE Final Res ult Performing Organization Address City/[facility]/ZIP Co de Phone Number [facility] [address] [place], [place] [id number] from Last 3 Months or Most Recently Relevant to Health Maintenance Care Teams Health Care Coordinator Relationship Specialty Start Date End Date Kaitlin Hunter MD [address] [place] [id number] PCP - General Family Medicine 10/23/21 Serena Temple MD [address] [place] [address] Neurology 10/23/21
--- OUTSIDE RECORDS SUMMARY | 2024-11-01 21:32 | XMS_ITS | Clinical Summary ---
Author Organization [facility] Address [address] [place] [address] Care Team Providers Care Rehabilitation Therapist Name Role Phone Needs Pcp, Assignment Primary Care Provider [phone] Source Comments You are receiving this document as you are listed as the primary care provider,follow-up provider, or the patient has been referred to you for consultation.This is in compliance with the Medicare and[facility] EHR Incentive Program,which states Providers who transition their patient to another setting of careor provider of care or refers their patient to another provider of care shouldprovide summary care record for each transition of care or referral. [facility] Allergies Active Allergy Reactions Criticality Noted Date Comments Ibuprofen Rash,Hives High 11/13/2015 Medications LORazepam (AKA ATIVAN) 1 MG tablet Take 1 mg by mouth every 6 hours as needed for Anxiety. Active venlafaxine (EFFEXORXR) 150 MG 24 hour release capsuleIndicatio ns:Taking a total of 225 mg/day Indications : Taking a total of 225 mg/day 6 06/28/2016 Active ferrous sulfate 325 (65 FE) MG tablet Take 1 Tab by mouth daily with breakfast. 40 Tab 06/12/2017 Active cyclobenzaprine (FLEXERIL) 10 MG tablet Take 1 Tab by mouth two times daily as needed for Muscle Spasms. 20 Tab 02/01/2018 Active Active Problems Problem Noted Date Diagnosed Date Full-term premature rupture of membranes with onset of labor more than 24 hours following rupture 06/10/2017 Obesity affecting in third trimester 1 Overview (06/10/2017): Estimated body mass index is 42.91 kg/(m^2) as calculated from the following: Height as of this encounter: 5' 7 (1.702 m). Weight as of this encounter: 124.3 kg (274 lb). Pre- weight 275# Mild tetrahydrocannabinol (T HC) abuse in sustained remission 06/10/2017 Overview (06/10/2017): Few times per week: Quit with + UPT Panic attack 05/01/2016 Mild episode of recurrent major depressive disor davida 05/01/2016 PTSD (post-traumatic stress disorder) 05/01/2016 Depression 08/22/2001 Overview (06/10/2017): effexor XR 150 mg qd Anxiety 08/22/2001 Overview (06/10/2017): Ativan PRN Smoker Overview (06/10/2017): 1-4 cigs per day x 2 yrs, quit 03/2016 Anesthesia complication Overview (06/10/2017): wakes up during procedure Anemia Immunizations Immunization Administration Dates Next Due 4vHPV (Gardasil) 10/31/2008,06/24/2008, 8 DTP 03/14/1997 DTaP/Hib 03/18/1998, 7,1993,1993,1993 HepA, Unspecified Formulation 04/10/2013 HepB Ped/Adol (0-18 yrs) 01/18/1995,1993,1 09/11/1992 IPV (Polio) 04/02/1999, 8,1993,1993 Influenza IIV4 (Quadrivalent ) 0.5mL (18275) 06/12/2017 MCV4 (Menactra) 04/14/2011 MMR 03/18/1998,01/18/1995 Td 08/02/2005 Tdap 04/10/2013 Varicella 04/14/2011,08/27/2002 Family History Medical History Relation Name Comments Alcohol Abuse Father Drug Abuse Father Alcohol Abuse Mother Anxiety Mother Drug Abuse Mother Migraines Mother Thyroid Disorder Mother Cancer, Melanoma Maternal Grandfather Coronary Artery Disease Maternal Grandfather Diabetes, Type II Maternal Grandfather Diabetes, Type II Maternal Grandmother Bipolar Disorder Other 1 grandmother Cancer, Prostate Other 2 grandfather Cataract Other 3 grandmother/gra ndfather Cancer, Prostate Paternal Grandfather Cerebrovascular Disease Paternal Grandfather Diabetes, Type II Paternal Grandfather Diabetes, Type II Paternal Grandmother Bleeding Disorder Negative Family History Thromboembolic Disease Negative Family History Relation Name Status Comments Father Alive Mother Alive Maternal Grandfather Alive Maternal Grandmother Alive Leukemi a Other 1 Other 2 Other 3 Paternal Grandfather (Age 67) joy ng cancer Paternal Grandmother (Age 67) Social History Tobacco Use Types Packs/Day Years Used Date Smoking Tobacco: Former Smokeless Tobacco: Never Alcohol Use Standard Drinks/Week Comments Yes 0 (1 standard drink = 0.6 oz pur e alcohol) Comments No Sex and Gender Information Value Date Recorded Sex Assigned at Not on file Legal Sex Female 5:19 AM CDT Gender Identity Not on file Sexual Orientation Not on file 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 Not on file Not on file Not on erlinda e Last Filed Vital Signs Vital Sign Reading Time Taken Comments Blood Pressure 139/82 02/01/2018 5:58 PM CDT Pulse 90 02/01/2018 5:58 PM CDT Temperature 37.3 C (99.2 F) 02/01/2018 5:58 PM CDT Respiratory Rate 12 02/01/2018 5:58 PM CDT Oxygen Saturation 100% 02/01/2018 5:58 PM CDT Inhaled Oxygen Concentration - - Weight 124.3 kg (274 lb) 06/10/2017 12:00 AM CDT Height 170.2 cm (5' 7) 06/09/2017 8:50 PM CDT Body Mass Index 42.91 06/09/2017 8:50 PM CDT Plan of Treatment Health Maintenance Due Date Last Done Comments Cervical Cancer Screening Due 1993 Hep C Screening (Preventive Services) 1993 HIV Screening (Preventive Services) 2009 Adult Preventive Visit 2011 HepA (2 of 2 - Risk 2-dose series) 10/11/2013 04/10/2013 DTaP/Tdap/Td (7 - Tdap) 04/10/2023 04/10/20 13, 08/02/2005, 03/18/1998, Additional history exists COVID-19 Vaccine ( - 2023- season) 2024 Influenza (#1) 2024 06/12/2017, 10/18/2016 Zoster/Shingles (1 of 2) 2043 HepB Completed 01/18/1995, 07/23, 1993 Hib Completed 03/18/1998, 04/23, 1993, Additional history exists IPV (Polio) Completed 04/02/1999, 02/20, 1993, Additional history exists HPV Vaccine Completed 10/31/2008, 10/2007, 04/04/2008 MCV4 Completed 04/14/2011 Meningococcal B Aged Out No longer el igible based on patient's age to complete this topic Pneumococcal Aged Out No longer eligi ble based on patient's age to complete this topic Advance Directives * Full Code (Latest Code Status on File) Date Activated Date Inactivated Comments 06/11/2017 1:20 AM 06/14/2017 2:41 PM * Full Code Date Activated Date Inactivated Comments 06/10/2017 12:17 AM 06/11/2017 1:20 AM Care Teams Rehabilitation Therapist Relationship Specialty Start Date End Date Needs Pcp, [place] [address] PCP - General 02/01/18
--- OUTSIDE RECORDS SUMMARY | 2024-11-01 21:32 | XMS_ITS | Encounter Summary ---
Author [facility] Address [address] [place] [address] Care Team Providers Care Nuclear Power Plant Engineer Name Role Phone Needs Pcp, Assignment Primary Care Provider [phone] Encounter Details Date Type Department Care Team (Late st Contact Info) Description 06/08/2017 Scanned History External to External, [place] [address] [facility]- RECORDS Social History Tobacco Use Types Packs/Day Years Used Date Smoking Tobacco: Every Day Smokeless Tobacco: Never Alcohol Use Standard Drinks/Week Comments Yes 0 (1 standard drink = 0.6 oz pur e alcohol) Comments No Sex and Gender Information Value Date Recorded Sex Assigned at Not on file Legal Sex Female 5:19 AM CDT Gender Identity Not on file Sexual Orientation Not on file documented as of this encounter Plan of Treatment Not on file documented as of this encounter Visit Diagnoses Not on filedocumented in this encounter Care Teams Nuclear Power Plant Engineer Relationship Specialty Start Date End Date Needs Pcp, Assignment [place], [place] [id number] PCP - General 02/01/18 documented as of this encounter
--- OUTSIDE RECORDS SUMMARY | 2024-11-01 21:32 | XMS_ITS | Clinical Summary ---
Author Organization [facility] Address [address] [address] Phone Care Team Providers Care Diving Coach Name Role Phone Joanne Ramsey APRN, BROOMCORN SEEDER Unavailable Luisana Cuevas MD Primary Care Provider [phone] Allergies Active Allergy Reactions Criticality Noted Date Comments Codeine-Guaifenesin Anxiety High 11/08/2022 Causes panic attacks Ibuprofen Anaphylaxis High 11/08/2022 Kiwi Extract Anaphylaxis High 11/08/2022 Levofloxacin Anxiety High 11/08/2022 Causes panic attacks Pineapple Anaphylaxis High 11/08/2022 Sulfa Drugs Anaphylaxis High 11/08/2022 Medications * This document contains information received from the source organization and may not represent a complete record from that organization. LORazepam (ATIVAN) 1 MG tabletIndicatio ns:Anxiety Take 1 mg by mouth one time a day as needed. Active albuterol HFA (Ventolin HFA) 108 (90 Base) MCG/ACT inhalation aerosol Inhale 2 Puffs into the lungs every six hours as needed for Shortness of Breath. Shake before using. Active Acetaminophen 325 MG capsuleIndicati ons:Fever,Pain Take by mouth. PRN Active desvenlafaxine succinate ER (Pristiq) 100 MG Tablet Extended Release 24 HourIndications :Major Depressive Disorder Take 1 Tablet by mouth one time a day. Do not crush or chew. Indications: Major Depressive Disorder 30 Tablet 3 Active metoprolol tartrate (Lopressor) 25 MG tablet Take 25 mg by mouth 2 (two) times a day. 3 Active OLANZapine (ZyPREXA) 5 MG tablet Take 5 mg by mouth one time a day. 3 Active docusate sodium (DOK) 250 MG capsuleIndicati ons:Severe obesity (HCC),Vitamin D deficiency,JUAN PABLO (obstructive sleep apnea) Take 1 Capsule by mouth one time a day as needed for Constipation. 30 Capsule 1 4 Active semaglutide-bisi ght management (Wegovy) 2.4 MG/0.75ML Solution Auto-injector Inject 2.4 mg under the skin one time a week. After removal of the pen cap, the needle will be hidden inside the needle cover. To begin injection, press the needle cover firmly against the skin. Once injected, continue to press the device against the skin until the yellow bar has stopped moving. Then, remove the needle from the skin. 3 mL 3 4 Active Active Problems Problem Noted Date Diagnosed Date Adjustment disorder with mixed anxiety and depre ssed mood 11/09/2022 Anemia 11/08/2022 Anesthesia complication 11/08/2022 Overview (11/08/2022): wakes up during procedure Mild tetrahydrocannabinol (T HC) abuse in sustained remission 06/10/2017 Overview (11/08/2022): Few times per week: Quit with + UPT Mild episode of recurrent major depressive disor davida 05/01/2016 Panic disorder without agoraphobia 05/01/2016 PTSD (post-traumatic stress disorder) 05/01/2016 Obesity (BMI 30-39.9) 06/18/2015 Anxiety 08/22/2001 Overview (11/08/2022): Ativan PRN Depression 08/22/2001 Overview (11/08/2022): effexor XR 150 mg qd Medical History Medical History Date Comments Anxiety 08/22/2001 Formatting of is note might be different from the original. Ativan PRN Depression 08/22/2001 Formatting of is note might be different from the original. effexor XR 150 mg qd Obesity (BMI 30-39.9) 06/18/2015 PTSD (post-traumatic stress disorder) 05/01/2016 Social History Tobacco Use Types Packs/Day Years Used Date Smoking Tobacco: Never Smokeless Tobacco: Never Tobacco Cessation:Counseling Given: Not Answered Alcohol Use Standard Drinks/Week Comments Not Currently 1 (1 standard drink = 0.6 oz pur e alcohol) PHQ-2 Answer Date Recorded PHQ-2 Total 0 03/28/2023 EH IP Custom IPV Answer Date Recorded Do you feel UNSAFE in any of your personal relationships with your family members or any other acquaintances? No 2022 Comments No Sex and Gender Information Value Date Recorded Sex Assigned at Female 11/08/2022 6:00 PM CDT Legal Sex Female 11:06 PM TURRET LATHE OPERATOR Gender Identity Female 11/08/2022 6:00 PM CDT Sexual Orientation Not on file Obstetrics History Last Filed Vital Signs Vital Sign Reading Time Taken Comments Blood Pressure 104/73 03/28/2023 1:29 PM CDT Pulse 99 03/28/2023 1:29 PM CDT Temperature 36.3 C (97.4 F) 12/20/2022 4:19 PM CDT Respiratory Rate 16 03/28/2023 12:0 5 PM CDT Oxygen Saturation 97% 03/28/2023 12: 05 PM CDT Inhaled Oxygen Concentration - - Weight 141.5 kg (311 lb 15.2 oz) 05/16/2023 1:33 PM CDT Height 172.7 cm (5' 7.99) 05/16/2023 1:33 PM CD T Body Mass Index 47.44 05/16/2023 1:33 PM CDT Plan of Treatment Health Maintenance Due Date Last Done Comments Hepatitis B Vaccine (Standin g Order) (1 of 3 - 19+ 3-dose series) 2012 PERTUSSIS (Standing Order) 2012 TETANUS (Standing Order) 2012 COVID-19 Vaccine (2023-2 5 season) 2024 Influenza Vaccine Seasonal (Standing Order) (#1) 2024 Last pap w/o HPV Testing 05/31/2026 05/31/2023 Cervical Cancer Screening 05/27/2028 Last pap w/ HPV Testing 05/27/2028 05/27/2023 HPV Vaccine (Standing Order) Aged Out No longer eligible based on patient's age to complete this topic Pneumococcal/PCV20 Vaccine: Pediatrics (2-5 yrs) and At-Risk Patients (6-49 yrs) (Standing Order) Aged Out No longer eligible b ased on patient's age to complete this topic Insurance BLUE PLUS [facility] Address: [facility] [id number] [place] [phone] Advance Directives For more information, please contact: [phone] * Full Code (Latest Code Status on File) Date Activated Date Inactivated Comments 11/08/2022 6:25 PM 11/11/2022 4:46 PM Care Teams Diving Coach Relationship Specialty Start Date End Date Luisana Cuevas MD [address] [id number] PCP - General claim adjuster 03/28/23 Joanne Ramsey, SALES REPRESENTATIVE ELECTRIC SERVICE, BROOMCORN SEEDER [address] [place] [phone] Nurse Practitioner Psychiatry 11/15/22
--- OUTSIDE RECORDS SUMMARY | 2024-11-01 21:32 | XMS_ITS | Referral Summary ---
Author Organization [facility] Address [address] [place] [address] Care Team Providers Care Motorcycle Fabricator Name Role Phone Kaitlin Hunter MD Primary Care Provider [phone] Serena Temple MD Unavailable [phone] Allergies Active Allergy Reactions Criticality Noted Date Comments Ibuprofen Swelling, lips/tongue,Rash High 6 Kiwi Hives Medium 10/08/2021 Medications levonorgestreL (MIRENA) 20 mcg/24 hours (6 yrs) 52 mg IU IUD 1 Device by Intrauterine route ONCE. Active Mth-Me Blue-Sod Pyeq-YnFyv-Cws (URIBEL) 118-10-40.8-36 mg oral Cap Take 1 [...] (10/22/2021): Added automatically from request for surgery [id number] JUAN PABLO (obstructive sleep apnea) 10/01/2021 Overview [...] IPV 04/02/1999, 8,1993,09/10 Rabies IM Fibroblast Culture 09/15/2020,09/01/19 21,08/25/2020 Td 10/14/2020 Td adult absorbed PF (2 Lf) 08/02/2005 Tdap 04/10/2013 Varicella 04/14/2011,08/27/2002 Social History Tobacco Use Types Packs/Day Years [...] money to buy more. Never true 10/24/19 22 Within the past 12 months, t he food you bought just didn't last and you didn't have money to get more. Never true 10/23/2021 Comments No Sex and Gender Information Value Date Recorded Sex Assigned at Female 07/02/2021 11:07 AM RAILROAD REPAIRER Legal Sex Female 4:50 PM CDT Gender Identity Female 07/02/2021 11:07 AM RAILROAD REPAIRER Sexual Orientation Bisexual 07/02/2021 11 :07 AM RAILROAD REPAIRER Last Filed Vital Signs Vital Sign Reading [...] 01/27/2022 11:14 AM CDT Plan of Treatment Not on file Procedures Procedure Name Priority Date/Time Associated Diagnosis Comments PAP WITH HPV-HR REFLEX Routine 04/30/2020 6:28 PM CDT Screening for cervical cancer HEP C ANTIBODY Routine 04/30/2020 5:54 PM CDT Screening for STDs (sexually transmitted diseases) from Last 3 Months or Most Recently Relevant to Health Maintenance Results * PAP TEST WITH HPV-HR REFLEX (04/30/2020 6:28 PM CDT) Case Report Pap Smear Case: [id number] Authorizing Provider: Georgina Metzger PA-C Collected: 04/30/2020 06:28 PM Ordering Location: [facility] - Received: 05/01/2020 05:56 PM [facility] First Screen: Sumi Myrick Specimen: Cervical Thin Prep (HPV Reflex) Field Sales Representative Screen, Cervix 05/05/2020 3:37 PM CDT [facility] Interpretation Negative for intraepithelial lesion or malignant cells. 05/05/2020 3:37 PM CDT [facility] Specimen Adequacy Satisfactory for evaluation. Endocervical/trans formation zone component absent. 05/05/2020 3:37 PM CDT [facility] LMP 04/30/2020 05/05/2020 3:37 PM CDT [facility] Pap Disclaimer This specimen was screened by the [facility] System prior to manual review by a ironmolder and/or pathologist. The Pap test is a screening test and has an irreducible false-negative rate. Routine periodic testing and follow-up of unexplained clinical signs and symptoms are important to minimize the consequence of false-negative Pap tests. Bryson et al. 2012 Updated Consensus Guidelines for the Management of Abnormal Cervical Cancer Screening Tests and Cancer Precursors. J Low Genit Tract Dis 2013; 17 (5): S2-S27 05/05/2020 3:37 PM CDT [facility] Vaginal and cervical cytologic material (specimen) CERVIX UTERI STRUCTURE / Unknown 04/30/2020 6:28 PM CDT 05/01/2020 5:56 PM CDT Comment:No LMP recorded. (Ar nstrual status: IUD). Georgina Metzger PA-C PATHOLOGY/CYTOLOGY ORDERABLE F inal Result [facility] [address] [place] [id number] * HEP C ANTIBODY (04/30/2020 5:54 PM CDT) Hepatitis C Antibody Non-Reacti ve Non-Reacti ve 05/01/2020 1:06 PM CDT [facility] Blood specimen (specimen) VENOUS BLOOD SPECIMEN / Unknown 04/30/2020 5:54 PM CDT 05/01/2020 11:44 AM CDT Georgina Metzger PA-C IMMUNOLOGY ORDERABLE Final Res ult [facility] [address] [place] [id number] from Last 3 Months or Most Recently Relevant to Health Maintenance Care Teams Motorcycle Fabricator Relationship Specialty Start Date End Date Kaitlin Hunter MD [address] [facility] [address] [place] [id number] PCP - General Family Medicine 10/23/21 Serena Temple MD [address] [facility] [address] [place] [address] Neurology 10/23/21
--- OUTSIDE RECORDS SUMMARY | 2024-11-01 21:32 | XMS_ITS | Encounter Summary ---
Author Organization [facility] Address [address] [address] Care Team Providers Care Planograph Operator Name Role Phone Needs Pcp, Assignment Primary Care Provider [phone] Encounter Details Date Type Department Care Team (Late st Contact Info) Description 10/18/2016 Scanned History External to [facility]- RECORDS Social History Tobacco Use Types Packs/Day [...] on filedocumented in this encounter Care Teams Planograph Operator Relationship Specialty Start Date End Date Needs Pcp, [facility] [place], [place] [id number] PCP - General 02/01/18 documented as of this encounter
--- OUTSIDE RECORDS SUMMARY | 2024-11-01 21:32 | XMS_ITS | Clinical Summary ---
Author Organization [facility] Address [address] [facility] [place] [address] Care Team Providers Care Seasonal Customer Service Associate Name Role Phone Daisy Beebe PA-C Unavailable [phone] System, Provider Not In Primary Care Provider Un available Nilam Beal MD Unavailable Allergies Active Allergy Reactions Criticality Noted Date Comments Ibuprofen Hives,Rash High 12/29/2014 Other reaction(s): Swelling, lips/tongue Other reaction(s): Hives Kiwi Hives High 10/08/2021 Levofloxacin Anxiety High 11/08/2022 Causes panic attacks No Known Allergies 05/21/2002 Pineapple Anaphylaxis High 11/08/2022 Sulfa Antibiotics Anaphylaxis High 11/08/2022 Medications desvenlafaxine (PRISTIQ) 50 MG 24 hr tablet Take 1 tablet by mouth daily 2 Active Cholecalciferol 100 MCG (4000 UT) TABS Active metFORMIN (GLUCOPHAGE) 500 MG tablet Take 500 mg by mouth daily (with breakfast) TWICE DAILY Active albuterol (PROAIR HFA/PROVENTIL HFA/VENTOLIN HFA) 108 (90 Base) MCG/ACT inhalerIndicatio ns:Infection due to 2019 novel coronavirus Inhale 2 puffs into the lungs every 6 hours as needed for shortness of breath, wheezing or cough 18 g 1 3 Active fluticasone (FLONASE) 50 MCG/ACT nasal sprayIndications :Infection due to 2019 novel coronavirus [place] 2 sprays into both nostrils daily 18 mL 1 3 Active LORazepam (ATIVAN) 0.5 MG tabletIndication s:Anxiety Take 1 tablet (0.5 mg) by mouth every 6 hours as needed for anxiety 5 tablet 3 Active Active Problems Problem Noted Date Diagnosed Date Infection due to 2019 novel coronavirus 09/21/19 23 JUAN PABLO (obstructive sleep apnea) 10/01/2021 Overview (09/21/2022): AHI 10, desats to 84% HST Rx 5-20 ADAPT Anemia 12/11/2020 Anesthesia complication 12/11/2020 Overview (09/21/2022): wakes up during procedure wakes up during procedure IUD (intrauterine device) in place 11/14/2020 Overview (09/21/2022): Due for removal 10/2025 Endometriosis determined by laparoscopy 10/21/19 21 Overview (09/21/2022): Stage 2; Dr. Street Full-term premature rupture of membranes with onset of labor more than 24 hours following rupture 06/10/2017 Mild tetrahydrocannabinol (T HC) abuse in sustained remission 06/10/2017 Overview (09/21/2022): Few times per week: Quit with + UPT Few times per week: Quit with + UPT Mild episode of recurrent major depressive disor davida 05/01/2016 PTSD (post-traumatic stress disorder) 05/01/2016 Tobacco use disorder 06/18/2015 Adjustment disorder with mixed anxiety and depre ssed mood 07/05/2013 Anxiety 08/22/2001 Overview (09/21/2022): Ativan PRN Depression 08/22/2001 Overview (09/21/2022): effexor XR 150 mg qd Resolved Problems Problem Noted Date Diagnosed Date Resolved Date Emotional disturbance of chi ldhood or adolescence 11/05/2005 07/05/2013 Overview (05/22/2015): Problem list name updated by automated process. 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 12/10/2005 Generalized anxiety disorder 05/21/2002 12/10/2005 Immunizations Name Administration Dates Next Due COVID-19 MONOVALENT 12+ (Pfizer) 09/25/2021,07/0 12/2020,02/02/2021 DTAP (<7y) 03/14/1997 HEPA 04/10/2013 HPV Quadrivalent 10/31/2008,06/24/2008, 8 HepB, Unspecified 01/18/1995,1993 Hepatitis A (VAQTA)(ADULT 19+) 04/10/2013 Hepatitis B, Peds (Engerix-B/Recombivax HB) 01/18/1995,1993,1993 Historical DTP/aP 03/14/1997 Influenza Vaccine >6 months,quad, PF 06/12/2017, 10/18/2016 Influenza Vaccine, 6+MO IM (QUADRIVALENT W/PRESERVATIVES) 05/15/2021,07/04/2020,07/03/2019 MMR (MMRII) 03/18/1998,01/18/1995 Meningococcal ACWY (Menactra ) 04/14/2011 Poliovirus, inactivated (IPV) 04/02/1999 ,03/18/1998,1993,09/10 Rabies Vaccine (Imovax) 09/15/2020,09/01/2020, TD,PF 7+ (Tenivac) 08/02/2005 TDAP (Adacel,Boostrix) 04/10/2013 TRIHIBIT (DTAP/HIB, <7y) 03/18/1998,04/23,1993,11/10,1993 Td (Adult), Adsorbed 08/02/2005 Td, Absorbed, Pf, Adult, Lf Unspecified 10/14/2020 Varicella (Varivax) 04/14/2011,08/27/2002 Social History Tobacco Use Types Packs/Day Years Used Date Smoking Tobacco: Former Cigarettes Q uit: 09/22/2021 Smokeless Tobacco: Never Tobacco Cessation:Counseling Given: Not Answered Adolescent Education Answer Date Record ed Getting School Help Needed Not on file 05/23 Comments No Sex and Gender Information Value Date Recorded Sex Assigned at Not on file Legal Sex Female 4:15 AM [employer]AMP[employer] PERSON Gender Identity Not on file Sexual Orientation Not on file Last Filed Vital Signs Vital Sign Reading Time Taken Comments Blood Pressure 129/91 02/19/2023 1:19 PM CDT Pulse 97 02/19/2023 1:19 PM CDT Temperature 36.3 C (97.3 F) 02/19/2023 10:39 AM CDT Respiratory Rate 25 02/19/2023 11:56 AM CDT Oxygen Saturation 94% 02/19/2023 1:20 PM CDT Inhaled Oxygen Concentration - - Weight 141.5 kg (312 lb) 02/19/2023 10:39 AM CDT Height 172.7 cm (5' 8) 02/19/2023 10:39 AM CDT Body Mass Index 47.44 02/19/2023 10:39 AM CDT Plan of Treatment Health Maintenance Due Date Last Done Comments ADVANCE CARE PLANNING 1993 ANNUAL REVIEW OF HM ORDERS 1993 DEPRESSION ACTION PLAN 1993 HIV SCREENING 2008 HEPATITIS C SCREENING 2011 PHQ-9 01/01/2014 07/04/2013 PAP 2014 YEARLY PREVENTIVE VISIT 10/23/2022 10/23/2021, 04/30 COVID-19 Vaccine ( season) 2024 09/25/2021, 02/23/2021, 02/02/2021 INFLUENZA VACCINE (#1) 2024 , 07/04/2020, 07/03/2019, Additional history exists DTAP/TDAP/TD IMMUNIZATION (8 - Td or Tdap) 10/14/2030 10/14/2020, 04/10/2013, 08/02/2005, Additional history exists ZOSTER IMMUNIZATION (1 of 2) 2043 HEPATITIS B IMMUNIZATION Completed 995, 01/18/1995, 1993, Additional history exists HPV IMMUNIZATION Completed 10/31/2008, 10/2007, 04/04/2008 MENINGITIS IMMUNIZATION Completed 04/14/2011 Pneumococcal Vaccine: Pediatrics (0 to 5 Years) and At-Risk Patients (6 to 49 Years) Aged Out No longer eligible based on patient's age to complete this topic Insurance [facility] Care Teams Seasonal Customer Service Associate Relationship Specialty Start Date End Date System, Provider Not In PCP - General Clinic 02/19/23 Daisy Beebe PA-C [id number] [facility] [address] [place] [address] Assigned PCP 08/25/22 Nilam Beal MD [id number] [facility] [address] [place], [place] [address] Cardiovascular Disease 02/21/23
--- OUTSIDE RECORDS SUMMARY | 2024-11-01 21:32 | XMS_ITS | Clinical Summary ---
Author Organization [facility] Address [address] [place] [address] Care Team Providers Care Enchilada Maker Name Role Phone Светлана Malik Primary Care Provider [phone] Allergies Active Allergy Reactions Criticality Noted Date Comments Codeine-Guaifenesin Anxiety High 11/08/2022 Causes panic attacks Ibuprofen Hives 12/29/2014 Kiwi Anaphylaxis,Hives High 10/08/2021 Levofloxacin Psychosis 10/20/2022 Pineapple Anaphylaxis High 11/08/2022 Medications acetaminophen (TYLENOL EXTRA STRGTH) 500 mg tablet Take 1,000 mg by mouth. Active OLANzapine (ZYPREXA) 5 mg tablet Take 5 mg by mouth 2 times daily if needed for Agitation. 4 Active clonazePAM (KLONOPIN) 0.5 mg tabletIndications:P anic disorder without agoraphobia Take 1 Tablet (0.5 mg) by mouth 2 times daily if needed for Anxiety (Panic attacks). 15 Tablet 4 Active lamoTRIgine 100 mg tabletIndications:B ipolar affective disorder, remission status unspecified (HC) Take 1 Tablet (100 mg) by mouth once daily. 30 Tablet 3 4 Active metoprolol succinate (TOPROL XL) 50 mg sustained-release tabletIndications:P alpitations,Sinus tachycardia Take 1 Tablet (50 mg) by mouth once daily. 90 Tablet 1 4 Active ondansetron (ZOFRAN ODT) 4 mg disintegrating tabletIndications:A bdominal pain, unspecified abdominal location,Calculus of gallbladder without cholecystitis without obstruction Place 1 Tablet (4 mg) on the tongue every 8 hours if needed for Nausea/Vomit ing. 20 Tablet 4 Active citalopram (CELEXA) 10 mg tablet Take 10 mg by mouth once daily. 4 Active Active Problems Problem Noted Date Diagnosed Date Bipolar affective disorder, remission status uns pecified 09/05/2024 [facility], Encounter for preconception consultation Overview (08/07/2024): Kami R Sheets : 1995 [facility] PRECONCEPTION CONSULTATION ON REFERRING PHYSICIAN/CLINIC LOCATION/FAX #/LAST UPDATE: Enchilada Maker Role and Specialty Contact Info Address Start End Comments Светлана Malik, [facility] [address] [facility] [address] 05/24/2023 - - Primary MD approves scheduling of recommended ultrasounds/testing: Yes REASON FOR CONSULT: currently on zepbound, would like within a year , BMI 44 , Hx of cerebral aneurysm 06/2023- follows at [place] [facility] Everywhere TODAY'S APPOINTMENT: MD Consultation PRIMARY DIAGNOSIS: 29 y.o. Anxiety, depression 2016 C/S BMI 44 SPECIALISTS/CONSULTS: Dr Naun Lama Neurology at [place] - 03/05/24 Include: Specialty MD Clinic Name Phone# [place] and ADDED TO PATIENT CARE TEAM GENETICS: to be added to appointment PROCEDURES: PERTINENT LABS: PERTINENT MEDS: Zepbound Celexa Klonopin Lamictal Zyprexa PLAN OF CARE: Generalized hypermobility of joints 08/11/2023 Pap smear for cervical cancer screening 05/31/20 Overview (05/31/2023): 05/23/2023: NIL/HPV negative Plan: Pap and HPV in 5 years. LOGAN (generalized anxiety disorder) 05/23/2023 Overview (05/24/2023): Ativan PRN Sinus tachycardia 05/23/2023 JUAN PABLO (obstructive sleep apnea) 10/01/2021 Overview (05/24/2023): AHI 10, desats to 84% HST Rx 5-20 ADAPT Anesthesia complication 12/11/2020 Overview (05/24/2023): Wakes up during procedure Endometriosis determined by laparoscopy 10/21/19 Overview (05/24/2023): Stage 2; Dr. Street Mild tetrahydrocannabinol (T HC) abuse in sustained remission 06/10/2017 Overview (05/24/2023): Few times per week: Quit with + UPT Panic disorder without agoraphobia 05/01/2016 PTSD (post-traumatic stress disorder) 05/01/2016 Obesity, morbid, BMI 40.0-49.9 06/18/2015 Adjustment disorder with mixed anxiety and depre ssed mood 07/05/2013 Depression 08/22/2001 Overview (05/24/2023): Pristiq 100 mg daily Comments Yes Resolved Problems Problem Noted Date Diagnosed Date Resolved Date Aneurysm of anterior cerebral artery 08/11/2023 09/05/2024 Overview (09/05/2024): L anterior cerebral artery identified on imaging from 06/26/2023; following with neurology at [facility] - Visit 03/05/24, stated f/u was only needed for headaches, no longer needing surveillance for aneurysm Smoker 05/23/2023 05/23/2023 Overview (05/23/2023): 1-4 cigs per day x 2 yrs, quit 03/2016 Infection due to 2019 novel coronavirus 09/21/2022 05/23/2023 Anemia 12/11/2020 05/24/2023 IUD (intrauterine device) in place 11/14/2020 09/05/2024 Overview (05/24/2023): Due for removal 10/2025 Full-term premature rupture of membranes with onset of labor more than 24 hours following rupture 06/10/2017 05/23/2023 Encounter for supervision of normal first in first trimester 10/18/2016 05/23/2023 Overview (10/20/2016): Dating by :LMP, EDC 06/05/17. SAB on 08/29/16, dating per U/S gave an EDC of 06/09/17. Screening: considering Rh status:positive GCT: GBS: Problems: -Depression, currently taking Effexor and managed by Psychiatrist ([facility]) -Obese BMI is 42 with HgbA1c is normal (5.0) on 10/19/16 (7wks) LAST PAP SMEAR: 05/2016 Tobacco abuse 06/18/2015 05/23/2023 Tobacco use disorder 06/18/2015 023 Encounters Date Type Department Care Team Description 11/01/2024 1:45 PM CDT Ancillary Procedure [facility] [address] [facility] [address] [place] [address] Arrived 11/01/2024 10:50 AM CDT Office Visit [facility] [address] [place] [address] Светлана Malik, DO Confirmation (lmp 09/23/24, positive home test about 2 weeks ago. Is having left sided cramping that is mildly concerning. 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 ); Counseling (Would like to talk about ; IUD came out over the weekend while removing menstrual cup) 09/04/2024 8:05 AM [employer]ING AND BORING MACHINE FEEDER - 09/04/2024 11:59 PM [employer]ZING AND BORING MACHINE FEEDER Hospital Encounter [facility] [address] [facility] [address] [place] [address] 09/04/2024 Travel 08/31/2024 Nurse Triage [facility] [address] [place] [address] Светлана Malik, DO Palpitations 08/13/2024 11:35 AM [employer] AND BORING MACHINE FEEDER Telemedicine [facility] [address] [place] [address] Jessi Golden NP Error-please disregard 08/13/2024 Travel 08/09/2024 12:20 PM [employer] AND BORING MACHINE FEEDER Telemedicine [facility] [address] [place] [address] Breann Hodges NP UTI 08/09/2024 7:41 AM [employer]ING AND BORING MACHINE FEEDER - 08/09/2024 11:59 PM [employer]ZING AND BORING MACHINE FEEDER Hospital Encounter [facility] [address] [facility] [address] [place] [address] [facility], Encounter for preconception consultation (Primary Dx) 08/09/2024 7:17 AM [employer]ING AND BORING MACHINE FEEDER - 08/09/2024 7:40 AM [employer]ING AND BORING MACHINE FEEDER Hospital Encounter [facility] [address] [address] 08/09/2024 Telephone [facility] [address] [place] [address] Светлана Malik, DO Medication Management (UTI medication) 08/09/2024 Orders Only [facility] [address] [place] [address] [place] [address] Stanley, Donna, MS, CGC <No scans attached> 08/09/2024 Travel 08/07/2024 Telephone [facility] [address] [facility] [address] [place] [address] Marcia White HUC Appointment 08/07/2024 Telephone [facility] [address] [facility] [address] [place] [address] Marcia White HUC Appointment from Last 3 Months Immunizations Immunization Administration Dates Next Due COVID-19 VACCINE SPIKEVAX (M ODERNA 50MCG/0.5ML) 12YO+ PFS 05/30/2024,06/01/2023 DTP 03/14/1997 DTaP 03/14/1997 DTaP-HIB (TriHIBIT) 03/18/1998, 7,1993,11/10,1993 Hepatitis A (Adult) 05/17/2023,04/10/2013 Hepatitis A, Unspecified 04/10/2013 Hepatitis B (Peds) 01/18/1995,1993, 993 Hepatitis B, Unspecified 01/18/1995,1993 Human Papilloma Virus Vaccine 10/31/2008, 008,04/04/2008 INFLUENZA, IIV3 PF (AGE >= 6 MO) 05/30/2024 Imovax 09/15/2020,09/01/2020,08/25/2020 Inactivated Polio Vaccine 04/02/1999,,1993,09/10 Influenza, IIV4 05/17/2023,06/12/2017,10/18/2016 Influenza, IIV4 (=>6mos) MDV 05/15/2021,07/04/20,07/03/2019 MMR 03/18/1998,01/18/1995 Meningococcal Vaccine (Menactra) 04/14/2011 Rabavert 09/15/2020,09/01/2020,08/25/2020 Td (Age >=7 Years) 08/02/2005 Td Adult, Adsorbed, Pf, Lf Unspecified 1 Td, Preservative Free (age >= 7 Years) 1,08/02/2005 Tdap 05/17/2023,04/10/2013 Varicella Vaccine 04/14/2011,08/27/2002 Family History Medical History Relation Name Comments Alcoholism Father Atrial fibrillation Father Diabetes Father Drug Abuse Father Heart Disease Maternal Grandfather Heart failure Maternal Grandfather Hypertension Maternal Grandfather Leukemia Maternal Grandfather Skin cancer Maternal Grandfather melanom a Diabetes Maternal Grandmother Psychiatric illness Maternal Grandmother Bipolar Skin cancer Maternal Grandmother melanom a Thyroid Disease Maternal Grandmother Alcoholism Mother Drug Abuse Mother Hypertension Mother Sarcoidosis Mother Skin cancer Mother Thyroid Disease Mother Cancer-prostate Paternal Grandfather Crohn's disease Paternal Grandfather Diabetes Paternal Grandfather Heart Disease Paternal Grandfather Skin cancer Paternal Grandfather basal c ell Stroke Paternal Grandfather Diabetes Paternal Grandmother Lung cancer Paternal Grandmother Skin cancer Paternal Grandmother ADD / ADHD Son Creighton Autism Son Creighton Relation Name Status Comments Father Alive Maternal Aunt Alive Maternal Grandfather Maternal Grandmother Mother Alive Paternal Grandfather Paternal Grandmother Son [place]on Alive Social History Tobacco Use Types Packs/Day Years Used Date Smoking Tobacco: Former Cigarettes Q uit: 2020 Smokeless Tobacco: Never Tobacco Cessation:Counseling Given: Not Answered Alcohol Use Standard Drinks/Week Comments No 0 (1 standard drink = 0.6 oz pur e alcohol) Sober since 08/15/2020 PHQ-2 Answer Date Recorded PHQ-2 TOTAL SCORE 1 04/30/2024 Social Connections Answer Date Recorded Do you often feel lonely or isolated from those around you? 0 10/20/2024 Financial Resource Strain Answer Date R ecorded Difficulty of Paying Living Expenses 3 10/20/2024 Difficulty of Paying Living Expenses Not on file 10/20/2024 Food Insecurity Answer Date Recorded Do you worry your food will run out before you are able to buy more? 1 10/20/2024 Transportation Needs Answer Date Record ed Does lack of transportation keep you from medica l appointments? 1 10/20/2024 Does lack of transportation keep you from work, meetings or getting things that you need? 1 10/20/2024 Housing Stability Answer Date Recorded What is your housing situation today? 1 10/20/2024 Interpersonal Safety Answer Date Record ed Are you being hit, kicked, p ushed or yelled at (see row info)? No 08/09/2024 Interpersonal Safety Abuse 12 - 18 Not on file 08/09/2024 Interpersonal Safety Ambulatory Vulnerability No t on file 08/09/2024 Utilities Answer Date Recorded Do you have trouble paying f or utilities (for example, heat, electricity, water, phone)? 1 10/20/2024 Comments Yes Sex and Gender Information Value Date Recorded Sex Assigned at Not on file Legal Sex Female 7:12 AM [employer] AND BORING MACHINE FEEDER Gender Identity Not on file Sexual Orientation Not on file Occupation Industry Job Start Date Job End Date works in [employer] Not on file Not on file Not on file Obstetrics History Para Term AB IAB SAB Ectopic Multiple Livin g Live Births 5 1 1 0 3 0 2 0 1 1 Date Outcome GA Total Labor Labor/2nd/3rd Weight Sex Type Anes PTL Anum A1 A5 Name Clin 4 SAB ELECTI VE AB 2014 AB 7 SAB 7w0 d SPONTA NEOUS 2016 Term 40w 6d 0h 01m 0h 01m 3.01 kg (6 lb 10 oz) M CS-LTr anv N Livin g 3 6 SHEETS ,BABYB OY ABIGAI L Diana Bonilla MD Complications: Intolera nce,Dysfunctional Labor Delivery Location:[facility] Current Last Filed Vital Signs Vital Sign Reading Time Taken Comments Blood Pressure 119/76 11/01/2024 10:58 AM CDT Pulse 84 11/01/2024 10:58 AM CDT Temperature 36.6 C (97.9 F) 10/20/2024 12:11 PM [employer] AND BORING MACHINE FEEDER Respiratory Rate 16 10/20/2024 12:1 1 PM [employer] AND BORING MACHINE FEEDER Oxygen Saturation 100% 10/20/2024 12: 11 PM [employer] AND BORING MACHINE FEEDER Inhaled Oxygen Concentration - - Weight 135.5 kg (298 lb 12.8 oz) 2024 10:58 AM CDT Height 174.5 cm (5' 8.7) 03/29/2024 1:21 PM CDT Body Mass Index 44.51 03/29/2024 1:21 PM CDT Plan of Treatment Health Maintenance Due Date Last Done Comments BMI (ht and wt on same day) for age 18+ 03/29/2025 03/29/2024, 01/13/2024, 05/23/2023, Additional history exists Depression screening for age 12+ 05/03/2025 05/03/2024, 04/30/2024, 05/23/2023, Additional history exists Pap test for age 21-65 05/23/2028 , 05/23/2023, 06/18/2015, Additional history exists Tetanus booster 05/17/2033 05/17/2023, 09/23, 04/10/2013, Additional history exists RSV vaccine for adults or (1 - 1-dose 75+ series) 2068 Hepatitis C screening for age 18-79 Completed 06/16/2015 HIV for age 15-65 Completed 10/18/2016, 06/16/2015 Tdap Completed 05/17/2023, 03/23, 04/10/2013 ([facility] COVID-19 vaccine series Completed 05/30/20, 06/01/2023, 09/25/2021, Additional history exists Influenza Vaccine Completed 05/30/2024, , 05/15/2021, Additional history exists Pneumococcal series for age 6-49 Aged Out No longer eligible based on patient's age to complete this topic Procedures Procedure Name Priority Date/Time Associated Diagnosis Comments US OB ANY TRI TV FILIBERTO 11/01/2024 2:19 PM CDT Positive test URINE POCT Routine 11/01/2024 11:24 AM CDT Missed period IA BLOOD COUNT COMPLETE AUTO&AUTO DIFRNTL WBC Routine 10/20/2024 1:26 PM [employer] AND BORING MACHINE FEEDER Possible ISTAT CHEM 8 Routine 10/20/2024 1:26 PM [employer] AND BORING MACHINE FEEDER Possible URINE POCT Routine 10/20/2024 12:56 PM [employer] AND BORING MACHINE FEEDER Possible UA W/ SEDIMENT EXAM REFLEXED PER CRITERIA STAT 10/20/2024 12:56 PM [employer] AND BORING MACHINE FEEDER Possible HPV HIGH RISK Routine 05/23/2023 5:02 PM CDT Screening for malignant neoplasm of cervix ANTI HIV 1/2 Routine 10/18/2016 2:13 PM [employer] AND BORING MACHINE FEEDER Encounter for supervision of normal first in first trimester ANTI HCV Routine 06/16/2015 10:49 AM CDT Screening for STD (sexually transmitted disease) from Last 3 Months or Most Recently Relevant to Health Maintenance Results * US OB ANY TRI TV (11/01/2024 2:19 PM CDT) Anatomical Region Laterality Modality , 2or 3 TRIMESTER, 1ST TRIMESTER Ultrasound 11/01/2024 5:06 PM CDT Impressions 11/01/2024 5:06 PM CDT No discretely visualized intrauterine or ectopic viable , within the limitations above. Dictated by Fernando Drake MD @ 11/01/2024 5:06:45 PM (Electronically Signed) Narrative 11/01/2024 5:06 PM CDT For Patients: As a result of the Cures Act, medical imaging exams and procedure reports are released immediately into your electronic medical record. You may view this report before your referring provider. If you have questions, please contact your health care provider. INDICATION: Positive test. TECHNIQUE: Ultrasound OB pelvis transabdominal and transvaginal. Real-time bruce-scale imaging of the pelvis was performed. COMPARISON: Pelvic ultrasound dated 12/02/2016. FINDINGS: Examination is somewhat limited due to body habitus and bowel gas. No sign of intrauterine or ectopic . No signs of hemorrhage. The ovaries are of normal size. There are no suspicious fluid collections noted in the cul-de-sac. Procedure Note Fernando Drake MD - 11/01/2024 For Patients: As a result of the Cures Act, medical imagingexams and procedure reports are released immediately into your electronicmedical record. You may view this report before your referring provider.If you have questions, please contact your health care provider. INDICATION: Positive test. TECHNIQUE: Ultrasound OB pelvis transabdominal and transvaginal. Real-time bruce- scaleimaging of the pelvis was performed. COMPARISON: Pelvic ultrasound dated 12/02/2016. FINDINGS: Examination is somewhat limited due to body habitus and bowel gas. No signof intrauterine or ectopic . No signs of hemorrhage. The ovaries are of normal size. There are no suspicious fluid collectionsnoted in the cul-de-sac. IMPRESSION: No discretely visualized intrauterine or ectopic viable , withinthe limitations above. Dictated by Fernando Drake MD @ 11/01/2024 5:06:45 PM (Electronically Signed) Светлана Breann Malik DO US Final Resu lt * (ABNORMAL) POCT Urine (11/01/2024 11:24 AM CDT) Only the most recent of2 resultswithin the time period is included. [facility] POC HCG URINE POSITIVE(A ) NEGATIVE [facility] Urine URINE SPECIMEN / Unknown 11/01/2024 11:24 AM CDT 11/01/2024 11:24 AM CDT Светлана Crain Hel[place] DO URINE Final Resu lt [facility] [address] [place] [address], [facility] [address] [place] [address] * (ABNORMAL) ISTAT CHEM 8 BMP (10/20/2024 1:26 PM [employer] AND BORING MACHINE FEEDER) Pathologist [facility] POCT, SODIUM, ISTAT 139 138 - 146 mmol/L [facility] (U POCT, POTASSIUM, ISTAT 4.3 3.5 - 4.9 mmol/L [facility] (U POCT, CHLORIDE, ISTAT 104 98 - 109 mmol/L [facility] (U POCT, CARBON DIOXIDE, ISTAT 23(L) 24 - 29 mmol/L [facility] (U POCT, GLUCOSE ISTAT 81 70 - 105 mg/dL [facility] (U POCT, UREA NITROGEN (BUN) ISTAT 8 8 - 26 mg/dL [facility] (U POCT,CREATININE , ISTAT 0.8 0.6 - 1.3 mg/dL [facility] (U POCT, CALCIUM, IONIZED, ISTAT 4.7 4.5 - 5.3 mg/dL [facility] (U Blood BLOOD SPECIMEN / Unknown 10/20/2024 1:26 PM [employer] BORING MACHINE FEEDER 10/20/2024 1:27 PM [employer] AND BORING MACHINE FEEDER us Marcio CROWELL CHEMISTRY Final R esult [facility] [address] [place] [address], [facility] (U [address] [place] [address] * (ABNORMAL) CBC AND DIFFERENTIAL (10/20/2024 1:26 PM [employer] AND BORING MACHINE FEEDER) WHITE BLOOD CELL COUNT 9.3 3.8 - 10.8 Thousand/u L [facility] (U RED BLOOD CELL COUNT 4.73 3.80 - 5.10 Million/uL [facility] (U HEMOGLOBIN 11.5(L) 11.7 - 15.5 g/dL [facility] (U HEMATOCRIT 37.5 35.0 - 45.0 % [facility] (U MCV 79.3(L) 80.0 - 100.0 fL [facility] (U MCH 24.3(L) 27.0 - 33.0 pg [facility] (U MCHC 30.7(L) 32.0 - 36.0 g/dL [facility] (U Comment: For adults, a slight decrease in the calculated MCHC value (in the range of 30 to 32 g/dL) is most likely not clinically significant; however, it should be interpreted with caution in correlation with other red cell parameters and the patient's clinical condition. RDW 14.9 11.0 - 15.0 % [facility] (U PLATELET COUNT 389 140 - 400 Thousand/u L [facility] (U MPV 9.3 7.5 - 12.5 fL [facility] (U ABSOLUTE NEUTROPHILS 5,031 1,500 - 7,800 cells/uL [facility] (U ABSOLUTE LYMPHOCYTES 3,450 850 - 3,900 cells/uL [facility] (U ABSOLUTE MONOCYTES 558 200 - 950 cells/uL [facility] (U ABSOLUTE EOSINOPHILS 223 15 - 500 cells/uL [facility] (U ABSOLUTE BASOPHILS 37 0 - 200 cells/uL [facility] (U NEUTROPHILS 54.1 % [facility] (U LYMPHOCYTES 37.1 % [facility] (U MONOCYTES 6.0 % [facility] (U EOSINOPHILS 2.4 % [facility] (U BASOPHILS 0.4 % [facility] (U Blood BLOOD SPECIMEN / Unknown 10/20/2024 1:26 PM [employer] AND BORING MACHINE FEEDER 10/20/2024 1:27 PM [employer] AND BORING MACHINE FEEDER us Marcio CROWELL HEMATOLOGY Final R esult [facility] [address] [place] [address], [facility] (U [address] [place] [address] * (ABNORMAL) UA W/ SEDIMENT EXAM REFLEXED PER CRITERIA [09297.2] (10/20/2024 12:56 PM [employer] AND BORING MACHINE FEEDER) COLOR YELLOW YELLOW [facility] (U APPEARANCE CLEAR CLEAR [facility] (U SPECIFIC GRAVITY 1.015 1.001 - 1.035 [facility] (U PH 5.5 5.0 - 8.0 [facility] (U GLUCOSE NEGATIVE NEGATIVE [facility] (U BILIRUBIN NEGATIVE NEGATIVE [facility] (U KETONES NEGATIVE NEGATIVE [facility] (U OCCULT BLOOD TRACE(A) NEGATIVE [facility] (U PROTEIN NEGATIVE NEGATIVE [facility] (U NITRITE NEGATIVE NEGATIVE [facility] (U LEUKOCYTE ESTERASE NEGATIVE NEGATIVE [facility] (U WBC UA NONE SEEN < OR = 5 /HPF [facility] ([facility] RBC UA 0-2 < OR = 2 /HPF [facility] (U SQUAMOUS EPITHELIAL CELLS UA 0-5 < OR = 5 /HPF [facility] (U BACTERIA UA NONE SEEN NONE SEEN /HPF [facility] (U NOTE UA [facility] (U Comment: This urine was analyzed for the presence of WBC, RBC, bacteria, casts, and other formed elements. Only those elements seen were reported. Urine URINE SPECIMEN / Unknown 10/20/2024 12:56 PM [employer] BORING MACHINE FEEDER 10/20/2024 12:57 PM [employer] AND BORING MACHINE FEEDER us Marcio CROWELL URINE Final R esult [facility] [address] [place] [address], [facility] (U [address] [place] [address] * HPV HIGH RISK (05/23/2023 5:02 PM CDT) TYPE 16 Negative Negative 05/27/2023 1:16 PM CDT [facility] TYPE 18 Negative Negative 05/27/2023 1:16 PM CDT [facility] OTHER HIGH RISK TYPES Negative Negative 05/27/2023 1:16 PM CDT [facility] Other (Cervical) Non-Blood / Unknown 05/23/2023 5:02 PM CDT 05/24/2023 5:02 PM CDT Narrative [facility] - 05/27/2023 1:16 PM CDT HPV types 16, 18, 31, 33, 35, 39, 45, 51, 52, 56, 58, 59, 66 and 68 DNA were undetectable or below the pre-set threshold. Methodology: Steve Nikki 4800 HPV Test Светлана Malik DO MICROBIOLOGY Final Resu lt [facility] [address] [place] [address], [place] * ANTI HIV 1/2 (10/18/2016 2:13 PM [employer]ORING MACHINE FEEDER) HIV-1/HIV-2 ANTIBODY Non-Reacti ve Non-Reacti ve 10/18/2016 6:20 PM [employer] BORING MACHINE FEEDER [facility] Blood BLOOD SPECIMEN / Unknown Venipuncture / Unknown 10/18/2016 2:13 PM [employer] AND BORING MACHINE FEEDER 10/18/2016 2:13 PM [employer]ING AND BORING MACHINE FEEDER Narrative [facility] - 10/18/2016 6:20 PM [employer] AND BORING MACHINE FEEDER HIV-1 p24 and HIV-1/HIV-2 Ab not detected us Senait Curtis EMULSIFICATION OPERATOR SEND OUTS Final Res ult [facility] [address] [place] [address], [place] * ANTI HCV (06/16/2015 10:49 AM CDT) HEPATITIS C ANTIBODY Non-Reacti ve Non-Reacti ve 06/16/2015 5:48 PM CDT [facility] [facility] Blood specimen (specimen) BLOOD SPECIMEN / Unknown Venipuncture / Unknown 06/16/2015 10:49 AM CDT 06/16/2015 10:50 AM CDT Narrative [facility] - 06/16/2015 5:48 PM CDT Antibodies to HCV not detected; does not exclude the possibility of exposure to HCV. Rachel Monet DO SEND OUTS Julianna padron Result [facility] [address] [place] [address], [place] from Last 3 Months or Most Recently Relevant to Health Maintenance Insurance [place] CHOICE [place] [facility] Member Subscriber Plan / Payer (Ef fective 2024-Present) Name:Kami Estes Member ID:[id number] Relation to Subscriber:Self Name:Kami Estes Subscriber ID:[id number] Payer ID:Not on file Group ID:Not on file Type:Not on file Address: [employer] Care Teams Enchilada Maker Relationship Specialty Start Date End Date Светлана Malik DO [address] [facility] [address] PCP - General Family Practice 05/24/23
--- OUTSIDE RECORDS SUMMARY | 2024-11-01 21:32 | XMS_ITS | Encounter Summary ---
Author Organization [facility] Address [address] [place] [address] Care Team Providers Care Wire Bender Hand Name Role Phone Kaitlin Hunter MD Primary Care Provider [phone] Serena Temple MD Unavailable [phone] Encounter Details Date Type Department Care Team (Latest Contact Info) Description 10/16/2021 Prep For Procedure [facility] [place] [address] [facility] [address] [place], [place] [id number] [place] [address] [place] [address] [address] [place], [place] [id number] Syncope, unspecified syncope type (Primary Dx) Social History Tobacco Use Types Packs/Day Years Used Date Smoking Tobacco: Former Cigarettes 0.3 5 Smokeless Tobacco: Never Alcohol Use Standard Drinks/Week Comments Yes 0 (1 standard drink = 0.6 oz pur e alcohol) AUDIT-C Answer Date Recorded Q1: How often do you have a drink containing alc ohol? Monthly or less 08/21/2020 Average Number of Drinks Not on file 020 Frequency of Binge Drinking Not on file 07/24 PHQ-2 Answer Date Recorded PHQ9 Total Score, calculated 15 Comments No Sex and Gender Information Value Date Recorded Sex Assigned at Female 07/02/2021 11:07 AM PAINT STOCKMAN Legal Sex Female 4:50 PM CDT Gender Identity Female 07/02/2021 11:07 AM PAINT STOCKMAN Sexual Orientation Bisexual 07/02/2021 11 :07 AM PAINT STOCKMAN COVID-19 Exposure Response Date Recorded In the last month, have you been in contact with someone who was confirmed or suspected to have Coronavirus / COVID-19? No / Unsure 10/19/2021 1:16 PM PAINT STOCKMAN documented as of this encounter Plan of Treatment Not on file documented as of this encounter Visit Diagnoses Diagnosis Syncope, unspecified syncope type- Primary documented in this encounter Additional Health Concerns Infection Onset Date Last Indicated Resolved Time COVID-19 01/27/2022 01/27/2022 02/26/2022 2:49 AM CDT documented as of this encounter Care Teams Wire Bender Hand Relationship Specialty Start Date End Date Kaitlin Hunter MD [address] [place] [address] PCP - General Family Medicine 10/23/21 Serena Temple MD [address] [place] [address] [place] [address] Neurology 10/23/21 documented as of this encounter
--- OUTSIDE RECORDS SUMMARY | 2024-11-01 21:32 | XMS_ITS | Clinical Summary ---
Author Organization [facility] Address [address] [place] [address] Care Team Providers Care Global Consumer Sector Vice President Name Role Phone Elsewhere, Pcp Primary Care Provider Unavailabl e Source Comments Patient records contain information from all sites at [facility]. For routine questions regarding patient records, call [phone] during business hours, M-F 8:00 AM - 5:00 PM Central Time. Record requests for emergency care only can be directed to [phone] at any time.[facility] Allergies Active Allergy Reactions Criticality Noted Date Comments Codeine-Guaifenesin Anxiety High 11/08/2022 Causes panic attacks Ibuprofen Anaphylaxis,Hives (Reselect Reaction),Rash,Edema, suggestive of allergic reaction, i.e., lip, tongue, or throat swelling High 12/29/2014 Other reaction(s): Hives Other reaction(s): Swelling, lips/tongue Other reaction(s): Hives Kiwi Anaphylaxis,Hives (Reselect Reaction) High 10/08/2021 Levofloxacin Anxiety High 10/20/2022 Causes panic attacks Pineapple Anaphylaxis High 11/08/2022 Sulfa (Sulfonamide Antibiotics) Anaphylaxis High 11/08/2022 Medications desvenlafaxine (PRISTIQ) 50 mg 24 hr tablet Take 50 mg by mouth daily. Along with a 25 mg tablet daily for a total 75 mg daily tapering off this medication. 3 Active semaglutide (WEGOVY) 1.7 mg/0.75 mL pen injector injection Inject 1.7 mg under the skin every 7 (seven) days. 3 Active clonazePAM (KlonoPIN) 0.5 mg tablet Take 1 mg by mouth 2 (two) times a day as needed for anxiety. Active levonorgestreL (Mirena) 21 mcg/24 hours (8 yrs) 52 mg IUD 1 Device by intrauterine route continuously. Active albuterol 90 mcg/actuation inhaler Inhale 1-2 puffs every 4 (four) hours as needed. 3 Active acetaminophen (TYLENOL) 500 mg tablet Take 1,000 mg by mouth as needed. Active venlafaxine XR (EFFEXOR-XR) 75 mg 24 hr capsule TAKE 1 CAPSULE BY MOUTH EVERY MORNING. START AFTER COMPLETING 37.5 MG DOSE 3 Active venlafaxine XR (EFFEXOR-XR) 37.5 mg 24 hr capsule TAKE 1 CAPSULE BY MOUTH EVERY MORNING FOR 7 DAYS. THEN INCREASE TO 75 MG DAILY 3 Active lamoTRIgine (LaMICtaL) 25 mg tablet Take 50 mg by mouth daily. 4 Active metoprolol succinate (Toprol XL) 25 mg 24 hr tablet Take 1 tablet by mouth daily. 3 Active ZOLMitriptan (Zomig) 2.5 mg tablet Take 1 tablet (2.5 mg total) by mouth as needed for migraine. May repeat dose once in 2 hours if migraine is unresolved. Do not exceed 10 mg in 24 hours. 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 Astigmatism Bilateral 03/14/2024 Headache Unspecified 03/14/2024 Immunizations Immunization Administration Dates Next Due 4vHPV (discontinued) 10/31/2008,06/24/2008,04/04 DTaP / Hib 03/18/1998, 7,1993,1993, HepB Pediatric/Adolescent 01/18/1995,1993, 1993 IPV 04/02/1999,03/18/1998,1993 ,1993 MCV4 (Menactra)(Discontinued) 04/14/2011 MMR 03/18/1998,01/18/1995 Td (Adult), adsorbed 07/31/2005 OTTO 04/14/2011,08/27/2002 Family History Medical History Relation Name Comments Atrial fibrillation Grandfather Bladder cancer Grandfather Diabetes Grandfather Heart attack Grandfather Diabetes Grandmother Lung cancer Grandmother Hypothyroidism Mother Relation Name Status Comments Grandfather Grandmother Mother Social History Tobacco Use Types Packs/Day Years Used Date Smoking Tobacco: Former Cigarettes Q uit: 2020 Passive Smoke Exposure: Past Smokeless Tobacco: Never Tobacco Cessation:Counseling Given: Not Answered Comments:Grandparents smoked every other weekend visits Alcohol Use Standard Drinks/Week Comments Never 0 (1 standard drink = 0.6 oz pur e alcohol) QUIT 2 YEARS AGO Overall Financial Resource Strain (CARDIA) Answe r Date Recorded How hard is it for you to pa y for the very basics like food, housing, medical care, and heating? Not very hard 07/27/2023 Exercise Vital Sign Answer Date Recorde d On average, how many days pe r week do you engage in moderate to strenuous exercise (like a brisk walk)? 3 days Minutes of Exercise per Session Not on file 07/27/2023 Hunger Vital Sign Answer Date Recorded Within the past 12 months, y ou worried that your food would run out before you got the money to buy more. Never true 07/27/20 Within the past 12 months, t he food you bought just didn't last and you didn't have money to get more. Never true 07/27/2023 PRAPARE - Transportation Answer Date Re corded In the past 12 months, has l ack of transportation kept you from medical appointments or from getting medications? No 01/2023 In the past 12 months, has l ack of transportation kept you from meetings, work, or from getting things needed for daily living? No 07/27/2023 Nutrition Answer Date Recorded On average, how many serving s of fruits and vegetables do you eat per day (serving size is equal to 1 cup or approximately the size of a tennis ball)? 3-5 07/27/2023 Dental Answer Date Recorded Dental: Regular Dentist No 07/27/20 Employment Answer Date Recorded Employment status Unemployed/not in th e paid workforce and NOT seeking employment 07/27/2023 Housing Stability Answer Date Recorded What is your living situation today? I have a [facility] place to live 07/27/2023 Comments Unknown Sex and Gender Information Value Date Recorded Sex Assigned at Female 07/27/2023 7:49 AM FRUIT STUFFER Legal Sex Female 10:27 AM FRUIT STUFFER Gender Identity Female 07/27/2023 7:49 AM FRUIT STUFFER Sexual Orientation Bisexual 07/27/2023 7: 49 AM FRUIT STUFFER Last Filed Vital Signs Vital Sign Reading Time Taken Comments Blood Pressure 116/72 06/01/2024 5:30 PM CDT Pulse 85 06/01/2024 5:30 PM CDT Temperature 36.1 C (97 F) 09/05/2023 1:32 PM FRUIT STUFFER Respiratory Rate 28 06/01/2024 5:30 PM CDT Oxygen Saturation 99% 06/01/2024 5:30 PM CDT Inhaled Oxygen Concentration - - Weight 137 kg (302 lb 0.5 oz) 06/01/2024 2:40 PM CDT Height 174.8 cm (5' 8.82) 03/05/2024 4:17 PM CD T Body Mass Index 44.84 03/05/2024 4:17 PM CDT Plan of Treatment Health Maintenance Due Date Last Done Comments HIV Screening 1993 Hepatitis C Screening 1993 Cervical/Vaginal Cancer Screening 04/30/2023 04/30/2020 COVID-19 Vaccine ( season) 2024 06/01/2023, 09/25/2021, 02/23/2021, Additional history exists Depression Screening (Annual PHQ-2) 08/22/2024 DTaP,Tdap,and Td Vaccines (9 - Td or Tdap) 05/17/2033 05/17/2023, 10/14/2020, 04/10/2013, Additional history exists Hepatitis B Vaccines Completed 01/18/1995, 1993, 1993 IPV Vaccines Completed 04/02/1999, 02/20, 1993, Additional history exists HPV Vaccines Completed 10/31/2008, 10/2007, 04/04/2008 Varicella Vaccines Completed 04/14/2011, 08/27/2002 Influenza Vaccine Completed 05/30/2024, , 05/15/2021, Additional history exists Pneumococcal vaccine (0-49 years) Aged Out No longer eligible based on patient's age to complete this topic Medical Devices Implanted Type Area Instrument Calibrator Device Identifier Shelf Expiration Date Model / Serial / Lot Hardware E.G. Pins/Screws/Milo s Hardware e.g. pins/screws/milo s Right: Arm Intrauterine Device Intrauterine Device Uterus Description:Mirena Insurance [facility] [address] Care Teams Global Consumer Sector Vice President Relationship Specialty Start Date End Date Elsewhere, Pcp PCP - General Internal Medicine 03/01/24
--- OUTSIDE RECORDS SUMMARY | 2024-11-01 21:33 | XMS_ITS | Encounter Summary ---
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
--- OUTSIDE RECORDS SUMMARY | 2024-11-01 21:33 | XMS_ITS | Patient Health Record ---
Author Organization [facility] Address [address] [place] [address] [address] [place], [place] [address] [address] Care Team Providers Care Logging Rafter Laborer Name Role Phone VARGAS ADEN MD Primary Care Provider Unavail able SELF, SELF Unavailable Unavailable Allergies Allergen (clinical drug ingredient) Drug/Non Drug Allergy documented on EMR Reaction Allergy Type Onset Date Status anesthesia complication (uncoded) woke up during surgery Allergy Active ibuprofen Ibuprofen swelling, lips/tongue, rash Drug Allergy Active Kiwi hives Allergy Active Reason For Referral No Information Medications Medication SIG (Take, Route, Frequency, Duration) Notes Start Date End Date Status Benadryl Allergy 25 MG 1 tablet at bedti me as needed Orally Once a day for 30 day(s) allergies Active Desvenlafaxine Succinate ER 50 MG 1 tablet Orally Once a day depression Active Levonorgestrel 20 MCG/24HR as directed Intrauterine Control/endometri osis Active Social History Tobacco Use: Social History Observation Description Date Details (start date - stop date) Former Smoker NA - NA Tobacco Use/Smoking Question Answer Notes Are you a former smoker Section Notes: quit smoking 07/2021 Problems Problem Type SNOMED Code ICD Code Onset Dates Problem Status W/U Status Risk Notes Problem 14614429 Heartburn (R12) Active confirmed Problem 96419833 Obstructive sleep apnea (adult) (pediatric) (G47.33) Active confirmed Problem 400261529 Dependence on other enabling machines and devices (Z99.89) Active confirmed Problem 341635778 Morbid (severe) obesity due to excess calories (E66.01) Active confirmed Problem 015040198 Low vitamin D level (R79.89) Active confirmed Problem 958107259 Body mass index [BMI] 45.0-49.9, adult (Z68.42) Active confirmed Plan Of Treatment No Information Insurance Providers Payer Name Payer Address Payer Phone Subscriber Number Group Number Insured Name Patient Relationship to Insured Coverage Start Date Coverage End Date BLUE PLUS PMAP [address] [address] [place] [phone] [id number] [facility] [place] Self - patient is the insured Medical (General) History Medical History History ICD Code palpitations acute allergic reaction abdominal pain anesthesia complication morbid obesity - BMI 40.0-49.[address] anemia depressive disorder panic attack PTSD LOGAN 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 right humerus fracture dissociative identity disorder Surgical History Surgery Date(Month/Year) open fixation mid humerus fracture, righ t 2006 bilateral tonsillectomy 2008 wisdom teeth extraction 2009 section 06/11/2017 upper GI endoscopy 12/24/2019 colonoscopy 12/24/2019 hysteroscopy, operative, myosure 10/2020 pelvic laparoscopy 10/2020
[2024-11-01 23:31] LABS: Basophils Absolute Auto 0.05 K/uL (0.00-0.30); Basophils Percent Auto 0.5 % (0.0-3.0); Eosinophils Absolute Auto 0.21 K/uL (0.00-0.50); Hematocrit 35.8 % (33.0-51.0); Hemoglobin* 11.2 gm/dL (12.0-16.0); Immature Granulocytes Abs Auto 0.02 K/uL (0.00-0.30); Immature Granulocytes Pct Auto 0.2 %; Lymphocytes Absolute Auto 3.65 K/uL (0.90-2.90); Lymphocytes Percent Auto 34.8 % (20-44); Mean Corpuscular HGB Conc 31 gm/dL (32-36); Mean Corpuscular Hemoglobin 25 pg (26-34); Mean Corpuscular Volume 79 fL (80-100); Monocytes Percent Auto 7.7 % (0.0-11.0); Neutrophils Absolute Auto 5.75 K/uL (1.7-7.0); Neutrophils Percent Auto 54.8 % (42.0-72.0); Platelet Count* 445 K/uL (140-440); RDW Coefficient of Variation % 15.2 % (11.5-15.5); Red Blood Count 4.56 m/uL (4.00-5.20); Slide Review Reflex No; White Blood Count* 10.49 K/uL (4.50-11.00)
== END 2024-11-01 23:01 | disposition home or self-care (01) ==
PROVIDERS: Emergency Provider Family Medicine; PCP Family Medicine
DX: O20.9 Hemorrhage in early pregnancy, unspecified (principal)
CPT/HCPCS: 36415; 76817; 84702; 85025; 86900; 86901; 99283; 99284

== ENCOUNTER 2024-11-07 18:31 | Emergency (ER) | payer BC, SELFPAY ==
--- OUTSIDE RECORDS SUMMARY | 2024-11-07 18:33 | XMS_ITS | Clinical Summary ---
Author Organization [place] Address [address] [facility] [place] [address] Care Team Providers Care Rn Gynecology Name Role Phone Daisy Beebe PA-C Unavailable [phone] System, Provider Not In Primary Care Provider [...] sprayIndications :Infection due to 2019 novel coronavirus [place] 2 sprays into both nostrils daily 18 [...] on file Legal Sex Female 4:15 AM BUMPER AND PAINTER Gender Identity Not on file Sexual Orientation [...] patient's age to complete this topic Insurance [facility] Care Teams Rn Gynecology Relationship Specialty Start Date End Date System, Provider Not In PCP - General Clinic 02/19/23 Daisy Beebe PA-C [address] [facility] [address] [place] [address] Assigned PCP 08/25/22 Nilam Beal MD [address] [facility] [address] [place], [place] [address] Cardiovascular Disease 02/21/23
--- OUTSIDE RECORDS SUMMARY | 2024-11-07 18:33 | XMS_ITS | Clinical Summary ---
Author Organization [facility] Address [address] [place] [address] Care Team Providers Care Veterans Service Officer Name Role Phone Kaitlin Hunter MD Primary Care Provider [phone] Serena Temple MD Unavailable [phone] Allergies Active Allergy Reactions Criticality Noted Date Comments Ibuprofen Swelling, lips/tongue,Rash High 6 Kiwi Hives Medium 10/08/2021 Medications levonorgestreL (MIRENA) 20 mcg/24 hours (6 yrs) 52 mg IU IUD 1 Device by Intrauterine route ONCE. Active Mth-Me Blue-Sod Humb-DrYmj-Pbt (URIBEL) 118-10-40.8-36 mg oral Cap Take 1 [...] (10/22/2021): Added automatically from request for surgery [id number] JUAN PABLO (obstructive sleep apnea) 10/01/2021 Overview [...] Sex Assigned at Female 07/02/2021 11:07 AM MANAGER PAYMENT Legal Sex Female 4:50 PM CDT Gender Identity Female 07/02/2021 11:07 AM MANAGER PAYMENT Sexual Orientation Bisexual 07/02/2021 11 :07 AM MANAGER PAYMENT Last Filed Vital Signs Vital Sign Reading [...] PM CDT) Case Report Pap Smear Case: [id number] Authorizing Provider: Georgina Metzger PA-C Collected: 04/30/2020 06:28 PM Ordering Location: [facility] - Received: 05/01/2020 05:56 PM [facility] First Screen: Sumi Myrick Specimen: Cervical Thin Prep (HPV Reflex) Graphic Coordinator Screen, Cervix 05/05/2020 3:37 PM CDT [facility] Interpretation Negative for intraepithelial lesion or malignant cells. 05/05/2020 3:37 PM CDT [facility] Specimen Adequacy Satisfactory for evaluation. Endocervical/trans formation zone component absent. 05/05/2020 3:[address] [facility] LMP 04/30/2020 05/05/2020 3:37 PM CDT [facility] Pap Disclaimer This specimen was screened by the ThinPrep Imaging System prior to manual review by a linen controller and/or pathologist. The Pap test is a [...] 17 (5): S2-S27 05/05/2020 3:37 PM CDT [facility] Vaginal and cervical cytologic material (specimen) CERVIX UTERI STRUCTURE / Unknown 04/30/2020 6:28 PM CDT 05/01/2020 5:56 PM CDT Comment:No LMP recorded. (Me nstrual status: IUD). Georgina Metzger PA-C PATHOLOGY/CYTOLOGY ORDERABLE F inal Result Performing Organization Address City/[facility]/ZIP Co de Phone Number [facility] [address] [place] [address] * HEP C ANTIBODY (04/30/2020 5:54 PM CDT) Hepatitis C Antibody Non-Reacti ve Non-Reacti ve 05/01/2020 1:06 PM CDT [facility] Blood specimen (specimen) VENOUS BLOOD SPECIMEN / Unknown 04/30/2020 5:54 PM CDT 05/01/2020 11:44 AM CDT Georgina Metzger PA-C IMMUNOLOGY ORDERABLE Final Res ult Performing Organization Address City/[facility]/ZIP Co de Phone Number [facility] [address] [place], [place] [address] from Last 3 Months or Most Recently Relevant to Health Maintenance Care Teams Veterans Service Officer Relationship Specialty Start Date End Date Kaitlin Hunter MD [address] [place] [address] PCP - General Family Medicine 10/23/21 Serena Temple MD [address] [place] [address] Neurology 10/23/21
--- OUTSIDE RECORDS SUMMARY | 2024-11-07 18:33 | XMS_ITS | Referral Summary ---
Author Organization [facility] Address [address] [place] [address] Care Team Providers Care Level Vial Inside Grinder Name Role Phone Kaitlin Hunter MD Primary Care Provider [phone] Serena Temple MD Unavailable [phone] Allergies Active Allergy Reactions Criticality Noted Date Comments Ibuprofen Swelling, lips/tongue,Rash High 6 Kiwi Hives Medium 10/08/2021 Medications levonorgestreL (MIRENA) 20 mcg/24 hours (6 yrs) 52 mg IU IUD 1 Device by Intrauterine route ONCE. Active Mth-Me Blue-Sod Lazg-GnFxc-Ife (URIBEL) 118-10-40.8-36 mg oral Cap Take 1 [...] (10/22/2021): Added automatically from request for surgery [id number] JUAN PABLO (obstructive sleep apnea) 10/01/2021 Overview [...] Sex Assigned at Female 07/02/2021 11:07 AM WELDER GUN Legal Sex Female 4:50 PM CDT Gender Identity Female 07/02/2021 11:07 AM WELDER GUN Sexual Orientation Bisexual 07/02/2021 11 :07 AM WELDER GUN Last Filed Vital Signs Vital Sign Reading [...] PM CDT) Case Report Pap Smear Case: [id number] Authorizing Provider: Georgina Metzger PA-C Collected: 04/30/2020 06:28 PM Ordering Location: [facility] - Received: 05/01/2020 05:56 PM [facility] First Screen: Sumi Myrick Specimen: Cervical Thin Prep (HPV Reflex) Acoustical Tile Patternmaker Screen, Cervix 05/05/2020 3:37 PM CDT [facility] Interpretation Negative for intraepithelial lesion or malignant cells. 05/05/2020 3:37 PM CDT [facility] Specimen Adequacy Satisfactory for evaluation. Endocervical/trans formation zone component absent. 05/05/2020 3:37 PM CDT [facility] LMP 04/30/2020 05/05/2020 3:37 PM CDT [facility] Pap Disclaimer This specimen was screened by the Spotlight InnovationPrep Imaging System prior to manual review by a digital developer and/or pathologist. The Pap test is a [...] 17 (5): S2-S27 05/05/2020 3:37 PM CDT [facility] Vaginal and cervical cytologic material (specimen) CERVIX UTERI STRUCTURE / Unknown 04/30/2020 6:28 PM CDT 05/01/2020 5:56 PM CDT Comment:No LMP recorded. (Ak nstrual status: IUD). Georgina Metzger PA-C PATHOLOGY/CYTOLOGY ORDERABLE F inal Result [facility] [address] [place] [address] * HEP C ANTIBODY (04/30/2020 5:54 PM CDT) Hepatitis C Antibody Non-Reacti ve Non-Reacti ve 05/01/2020 1:06 PM CDT [facility] Blood specimen (specimen) VENOUS BLOOD SPECIMEN / Unknown 04/30/2020 5:54 PM CDT 05/01/2020 11:44 AM CDT Georgina Metzger PA-C IMMUNOLOGY ORDERABLE Final Res ult [facility] [address] [place] [address] from Last 3 Months or Most Recently Relevant to Health Maintenance Care Teams Level Vial Inside Grinder Relationship Specialty Start Date End Date Kaitlin Hunter MD [address] [facility] [address] [place] [address] PCP - General Family Medicine 10/23/21 Serena Temple MD [address] [facility] [address] [place] [address] Neurology 10/23/21
--- OUTSIDE RECORDS SUMMARY | 2024-11-07 18:33 | XMS_ITS | Clinical Summary ---
Author Organization [facility] Address [address] [place] [address] Care Team Providers Care Timber Incisor Operator Name Role Phone Elsewhere, Pcp Primary Care Provider Unavailabl e Source Comments Patient records contain information from all sites at [facility]. For routine questions regarding patient records, call [phone] during business hours, M-F 8:00 AM - 5:00 PM Central Time. Record requests for emergency care only can be directed to [phone] at any time.[facility] Allergies Active Allergy Reactions Criticality Noted Date [...] your living situation today? I have a [facility] place to live 07/27/2023 Comments Unknown Sex and Gender Information Value Date Recorded Sex Assigned at Female 07/27/2023 7:49 AM RESTAURANT HOST Legal Sex Female 10:27 AM RESTAURANT HOST Gender Identity Female 07/27/2023 7:49 AM RESTAURANT HOST Sexual Orientation Bisexual 07/27/2023 7: 49 AM RESTAURANT HOST Last Filed Vital Signs Vital Sign Reading Time Taken Comments Blood Pressure 116/72 06/01/2024 5:30 PM CDT Pulse 85 06/01/2024 5:30 PM CDT Temperature 36.1 C (97 F) 09/05/2023 1:32 PM RESTAURANT HOST Respiratory Rate 28 06/01/2024 5:30 PM CDT [...] this topic Medical Devices Implanted Type Area Petroleum Refinery Operator Device Identifier Shelf Expiration Date Model / Serial / Lot Hardware E.G. Pins/Screws/Milo s Hardware e.g. pins/screws/milo s Right: Arm Intrauterine Device Intrauterine Device Uterus Description:Mirena Insurance [place] [address] Care Teams Timber Incisor Operator Relationship Specialty Start Date End Date Elsewhere, Pcp PCP - General Internal Medicine 03/01/24
--- OUTSIDE RECORDS SUMMARY | 2024-11-07 18:34 | XMS_ITS | Encounter Summary ---
Author Organization [employer] Address [address] [place] [address] Care Team Providers Care Data Center Solutions Architect Name Role Phone Kaitlin Hunter MD Primary Care Provider [phone] Serena Temple MD Unavailable [phone] Encounter Details Date Type Department Care Team (Latest Contact Info) Description 10/16/2021 Prep For Procedure [facility] [place] [address] [place], [place] [id number] [place] [address] [place] [address] [address] [place], [place] [id number] Syncope, unspecified syncope type (Primary Dx) Social [...] Sex Assigned at Female 07/02/2021 11:07 AM MACHINE ADJUSTER Legal Sex Female 4:50 PM CDT Gender Identity Female 07/02/2021 11:07 AM MACHINE ADJUSTER Sexual Orientation Bisexual 07/02/2021 11 :07 AM MACHINE ADJUSTER COVID-19 Exposure Response Date Recorded In the last month, have you been in contact with someone who was confirmed or suspected to have Coronavirus / COVID-19? No / Unsure 10/19/2021 1:16 PM MACHINE ADJUSTER documented as of this encounter Plan of Treatment Not on file documented as of this encounter Visit Diagnoses Diagnosis Syncope, unspecified syncope type- Primary documented in this encounter Additional Health Concerns Infection Onset Date Last Indicated Resolved Time COVID-19 01/27/2022 01/27/2022 02/26/2022 2:49 AM CDT documented as of this encounter Care Teams Data Center Solutions Architect Relationship Specialty Start Date End Date Kaitlin Hunter MD [address] [place] [address] PCP - General Family Medicine 10/23/21 Serena Temple MD [address] [place] [address] [place] [address] Neurology 10/23/21 documented as of this encounter
--- OUTSIDE RECORDS SUMMARY | 2024-11-07 18:34 | XMS_ITS | Clinical Summary ---
Author Organization [employer] Address [address] [place] [address] Care Team Providers Care Threading Machine Feeder Automatic Name Role Phone Светлана Malik Primary Care Provider [phone] Allergies Active Allergy Reactions Criticality Noted Date [...] affective disorder, remission status uns pecified 09/05/2024 [facility], Encounter for preconception consultation Overview (08/07/2024): Kami R Sheets : 1993 [facility] PRECONCEPTION CONSULTATION ON REFERRING PHYSICIAN/CLINIC LOCATION/FAX #/LAST UPDATE: Threading Machine Feeder Automatic Role and Specialty Contact Info Address Start End Comments Светлана Malik, [facility] (Family Practice) [address] [facility] [address] 05/24/2023 - - Primary MD approves scheduling of recommended ultrasounds/testing: Yes REASON FOR CONSULT: currently on zepbound, would like within a year , BMI 44 , Hx of cerebral aneurysm 06/2023- follows at [facility] Everywhere TODAY'S APPOINTMENT: MD Consultation PRIMARY DIAGNOSIS: 29 y.o. Anxiety, depression 2016 C/S BMI 44 SPECIALISTS/CONSULTS: Dr Naun Lama Neurology at [place] - 03/05/24 Include: Specialty MD Clinic Name [...] imaging from 06/26/2023; following with neurology at [facility] - Visit 03/05/24, stated f/u was only [...] currently taking Effexor and managed by Psychiatrist ([facility]) -Obese BMI is 42 with HgbA1c is normal (5.0) on 10/19/16 (7wks) LAST PAP SMEAR: 05/2016 Tobacco abuse 06/18/2015 05/23/2023 Tobacco use disorder 06/18/2015 023 Encounters Date Type Department Care Team Description 11/05/2024 1:00 PM CDT Orders Only [facility] [address] [place] [address] Lab 11/05/2024 Travel 11/02/2024 3:00 PM CDT Orders Only [facility] [address] [facility] [place] [address] Lab, [facility] 11/01/2024 1:45 PM CDT Ancillary Procedure [facility] [address] [address] 11/01/2024 10:50 AM CDT Office Visit [facility] [address] [place] [address] Светлана Malik, DO Confirmation (lmp 09/23/24, positive home test about 2 weeks ago. Is having left sided cramping that is mildly concerning. ) 11/01/2024 Travel 10/20/2024 11:40 AM DISTRICT LEADER Office Visit [facility] [place] [address] [place] [address] Marcio Ashton PA Abdominal Pain 10/20/2024 Travel 09/05/2024 7:30 AM DISTRICT LEADER Telemedicine [facility] [address] [place] [address] Светлана Malik, DO Medication Management (metformin; would like to go on this to maintain current weight loss, no longer taking zepbound as of 08/02/24. ); Counseling (Would like to talk about ; IUD came out over the weekend while removing menstrual cup) 09/04/2024 8:05 AM DISTRICT LEADER - 09/04/2024 11:59 PM DISTRICT LEADER Hospital Encounter [facility] [address] [facility] [address] [place] [address] 09/04/2024 Travel 08/31/2024 Nurse Triage [facility] [address] [place] [address] Светлана Malik, DO Palpitations 08/13/2024 11:35 AM DISTRICT LEADER Telemedicine [facility] [address] [place] [address] Jessi Golden NP Error-please disregard 08/13/2024 Travel 08/09/2024 12:20 PM DISTRICT LEADER Telemedicine [facility] [address] [place] [address] Breann Hodges NP UTI 08/09/2024 7:41 AM DISTRICT LEADER - 08/09/2024 11:59 PM DISTRICT LEADER Hospital Encounter [facility] [address] [facility] [address] [place] [address] [facility], Encounter for preconception consultation (Primary Dx) 08/09/2024 7:17 AM DISTRICT LEADER - 08/09/2024 7:40 AM DISTRICT LEADER Hospital [facility] [address] [place] [address] 08/09/2024 Telephone [facility] [address] [place] [address] Светлана Malik, Medication Management (UTI medication) 08/09/[address] [facility] [address] [facility] [address] [place] [address] Donna Angel, MS, CGC <No scans attached> 08/09/2024 Travel from Last 3 Months Immunizations Immunization Administration [...] Influenza, IIV4 05/17/2023,06/12/2017,10/18/2016 Influenza, IIV4 (=>6mos) MDV 05/15/2021,07/04/20 20,07/03/2019 MMR 03/18/1998,01/18/1995 Meningococcal Vaccine (Menactra) 04/14/2011 [place]abavert [...] cancer Paternal Grandmother ADD / ADHD Son [place] Autism Son [place] Relation Name Status Comments Father Alive Maternal Aunt Alive Maternal Grandfather Maternal Grandmother Mother Alive Paternal Grandfather Paternal Grandmother Son Nathan Alive Social History Tobacco Use Types Packs/Day [...] on file Legal Sex Female 7:12 AM DISTRICT LEADER Gender Identity Not on file Sexual Orientation Not on file Occupation Industry Job Start Date Job End Date works in [employer] [place] [employer] Not on file Not on file Not on file Obstetrics History Para Term AB IAB SAB Ectopic Multiple Livin g Live Births 5 1 1 0 3 0 2 0 1 1 Date Outcome GA Total Labor Labor/2nd/3rd Weight Sex Type Anes PTL Aunm A1 A5 Name Clin 4 SAB ELECTI VE AB 2014 AB 7 SAB 7w0 d SPONTA NEOUS 2016 Term 40w 6d 0h 01m 0h 01m 3.01 kg (6 lb 10 oz) M CS-LTr anv N Livin g 3 6 SHEETS ,BABYB OY ABIGAClare Bonilla MD Complications: Intolera nce,Dysfunctional Labor [facility] Last Filed Vital Signs Vital Sign Reading Time Taken Comments Blood Pressure 119/76 11/01/2024 10:58 AM CDT Pulse 84 11/01/2024 10:58 AM CDT Temperature 36.6 C (97.9 F) 10/20/2024 12:11 PM DISTRICT LEADER Respiratory Rate 16 10/20/2024 12:1 1 PM DISTRICT LEADER Oxygen Saturation 100% 10/20/2024 12: 11 PM DISTRICT LEADER Inhaled Oxygen Concentration - - Weight 135.5 [...] Completed 05/17/2023, 03/23, 04/10/2013 ([facility] COVID-19 vaccine series Completed 05/30/20, 06/01/2023, 09/25/2021, Additional history exists Influenza Vaccine Completed 05/30/2024, , 05/15/2021, Additional history exists Pneumococcal series for age 6-49 Aged Out No longer eligible based on patient's age to complete this topic Procedures Procedure Name Priority Date/Time Associated Diagnosis Comments HCG BETA QUANT, Routine 11/05/2024 1:22 PM CDT Missed period Positive test (HC) of unknown anatomic location (HC) HCG BETA QUANT, Routine 11/02/2024 3:04 PM CDT of unknown anatomic location (HC) US OB ANY TRI TV FILIBERTO 11/01/2024 2:19 PM CDT Positive test (HC) URINE POCT Routine 11/01/2024 11:24 AM CDT Missed period HI BLOOD COUNT COMPLETE AUTO&AUTO DIFRNTL WBC Routine 10/20/2024 1:26 PM DISTRICT LEADER Possible ISTAT CHEM 8 Routine 10/20/2024 1:26 PM DISTRICT LEADER Possible URINE POCT Routine 10/20/2024 12:56 PM DISTRICT LEADER Possible UA W/ SEDIMENT EXAM REFLEXED PER CRITERIA STAT 10/20/2024 12:56 PM DISTRICT LEADER Possible HPV HIGH RISK Routine 05/23/2023 5:02 PM CDT Screening for malignant neoplasm of cervix ANTI HIV 1/2 Routine 10/18/2016 2:13 PM DISTRICT LEADER Encounter for supervision of normal first in first trimester (HC) ANTI HCV Routine 06/16/2015 10:49 AM CDT Screening for STD (sexually transmitted disease) from Last 3 Months or Most Recently Relevant to Health Maintenance Results * STAT hCG Beta Quant, Serum (11/05/2024 1:22 PM CDT) Only the most recent of2 resultswithin the time period is included. HCG BETA QUANT,PREGNANC Y 2,140 mIU/mL 11/05/2024 11:21 PM CDT [facility] Blood BLOOD SPECIMEN / Unknown [facility] Collect / Unknown 11/05/2024 1:22 PM CDT 11/05/2024 1:23 PM CDT [facility] - 11/05/2024 11:21 PM CDT Expected Value for Healthy Non- premenopausal women <5.3mIU/mL FOR GESTATIONAL ASSESSMENT-See Range Table Below Weeks of gestation hCG mIU/mL 3 weeks gestation (5.8 - 71.2) 4 weeks gestation (9.5 - 750) 5 weeks gestation (217 - 7138) 6 weeks gestation (158 - 31,795) 7 weeks gestation (3,697 - 163,563) 8 weeks gestation (32,065 - 149,571) 9 weeks gestation (63,803 - 151,410) 10 weeks gestation (46,509 - 186,977) 12 weeks gestation (27,832 - 210,612) 14 weeks gestation (13,950 - 62,530) 15 weeks gestation (12,039 - 70,971) 16 weeks gestation (9,040 - 56,451) 17 weeks gestation (8,175 - 55,868) 18 weeks gestation (8,099 - 58,176) Biotin supplements may cause clinically significant interference for this test assay. If interference is suspected, it is strongly recommended that biotin is discontinued for at least one week prior to retesting. us Erasmo Lanier MD CHEMISTRY Final R esult [facility] [address] [place] [address], [place] * US OB ANY TRI TV (11/01/2024 [...] @ 11/01/2024 5:06:45 PM (Electronically Signed) Светлана Malik DO US Final Resu lt * (ABNORMAL) POCT Urine (11/01/2024 11:24 AM CDT) Only the most recent of2 resultswithin the time period is included. [facility] POC HCG URINE POSITIVE(A ) NEGATIVE [facility] Urine URINE SPECIMEN / Unknown 11/01/2024 11:24 AM CDT 11/01/2024 11:24 AM CDT Светлана Malik DO URINE Final Resu lt [facility] [address] [place] [address], [facility] [address] [place] [address] * (ABNORMAL) ISTAT CHEM 8 BMP (10/20/2024 1:26 PM DISTRICT LEADER) [facility] POCT, SODIUM, ISTAT 139 138 - 146 mmol/L [facility] (U POCT, POTASSIUM, ISTAT 4.3 3.5 - 4.9 mmol/L [facility] (U POCT, CHLORIDE, ISTAT 104 98 - 109 mmol/L [facility] (U POCT, CARBON DIOXIDE, ISTAT 23(L) 24 - 29 mmol/L [facility] (U POCT, GLUCOSE ISTAT 81 70 - 105 mg/dL [facility] (U POCT, UREA NITROGEN (BUN) ISTAT 8 8 - 26 mg/dL [facility] (U POCT,CREATININE , ISTAT 0.8 0.6 - 1.3 mg/dL [facility] (U POCT, CALCIUM, IONIZED, ISTAT 4.7 4.5 - 5.3 mg/dL [facility] (U Blood BLOOD SPECIMEN / Unknown 10/20/2024 1:26 PM DISTRICT LEADER 10/20/2024 1:27 PM DISTRICT LEADER us Marcio CROWELL CHEMISTRY Final R esult [facility] [address] [facility] [place] [address], [facility] ([place] [address] [facility] [place] [address] * (ABNORMAL) CBC AND DIFFERENTIAL (10/20/2024 1:26 PM DISTRICT LEADER) WHITE BLOOD CELL COUNT 9.3 3.8 - 10.8 Thousand/u L [facility] (U RED BLOOD CELL COUNT 4.73 3.80 - 5.10 Million/uL [facility] (U HEMOGLOBIN 11.5(L) 11.7 - 15.5 g/dL [facility] (U HEMATOCRIT 37.5 35.0 - 45.0 % [facility] (U MCV 79.3(L) 80.0 - 100.0 fL [facility] (U MCH 24.3(L) 27.0 - 33.0 pg [facility] (U MCHC 30.7(L) 32.0 - 36.0 g/dL [facility] (U Comment: For adults, a slight decrease in the calculated MCHC value (in the range of 30 to 32 g/dL) is most likely not clinically significant; however, it should be interpreted with caution in correlation with other red cell parameters and the patient's clinical condition. RDW 14.9 11.0 - 15.0 % [facility] (U PLATELET COUNT 389 140 - 400 Thousand/u L [facility] (U MPV 9.3 7.5 - 12.5 fL [facility] (U ABSOLUTE NEUTROPHILS 5,031 1,500 - 7,800 cells/uL [facility] (U ABSOLUTE LYMPHOCYTES 3,450 850 - 3,900 cells/uL [facility] (U ABSOLUTE MONOCYTES 558 200 - 950 cells/uL [facility] (U ABSOLUTE EOSINOPHILS 223 15 - 500 cells/uL [facility] (U ABSOLUTE BASOPHILS 37 0 - 200 cells/uL [facility] (U NEUTROPHILS 54.1 % [facility] (U LYMPHOCYTES 37.1 % [facility] (U MONOCYTES 6.0 % [facility] (U EOSINOPHILS 2.4 % [facility] (U BASOPHILS 0.4 % [facility] (U Blood BLOOD SPECIMEN / Unknown 10/20/2024 1:26 PM DISTRICT LEADER 10/20/2024 1:27 PM DISTRICT LEADER us Marcio CROWELL HEMATOLOGY Final R esult [facility] [address] [place] [address], [facility] ([place] [address] [facility] [place] [address] * (ABNORMAL) UA W/ SEDIMENT EXAM REFLEXED PER CRITERIA [51416.2] (10/20/2024 12:56 PM DISTRICT LEADER) COLOR YELLOW YELLOW [facility] (U APPEARANCE CLEAR CLEAR [facility] (U SPECIFIC GRAVITY 1.015 1.001 - 1.035 [facility] (U PH 5.5 5.0 - 8.0 [facility] (U GLUCOSE NEGATIVE NEGATIVE [facility] (U BILIRUBIN NEGATIVE NEGATIVE [facility] (U KETONES NEGATIVE NEGATIVE [facility] (U OCCULT BLOOD TRACE(A) NEGATIVE [facility] (U PROTEIN NEGATIVE NEGATIVE [facility] (U NITRITE NEGATIVE NEGATIVE [facility] (U LEUKOCYTE ESTERASE NEGATIVE NEGATIVE [facility] (U WBC UA NONE SEEN < OR = 5 /HPF [facility] ([facility] RBC UA 0-2 < OR = 2 /HPF [facility] (U SQUAMOUS EPITHELIAL CELLS UA 0-5 < OR = 5 /HPF [facility] (U BACTERIA UA NONE SEEN NONE SEEN /HPF [facility] (U NOTE UA [facility] (U Comment: This urine was analyzed for the presence of WBC, RBC, bacteria, casts, and other formed elements. Only those elements seen were reported. Urine URINE SPECIMEN / Unknown 10/20/2024 12:56 PM DISTRICT LEADER 10/20/2024 12:57 PM DISTRICT LEADER us Marcio CROWELL URINE Final R esult [facility] [address] [facility] [place] [address], [facility] (U [address] [facility] [place] [address] * HPV HIGH RISK (05/23/2023 5:02 PM CDT) TYPE 16 Negative Negative 05/27/2023 1:16 PM CDT [facility] TYPE 18 Negative Negative 05/27/2023 1:16 PM CDT [facility] OTHER HIGH RISK TYPES Negative Negative 05/27/2023 1:16 PM CDT [facility] Other (Cervical) Non-Blood / Unknown 05/23/2023 5:02 PM CDT 05/24/2023 5:02 PM CDT Narrative [facility] - 05/27/2023 1:16 PM CDT HPV types 16, 18, 31, 33, 35, 39, 45, 51, 52, 56, 58, 59, 66 and 68 DNA were undetectable or below the pre-set threshold. Methodology: Steve Nikki 4800 HPV Test us Светлана Malik DO MICROBIOLOGY Final Resu lt Performing Organization Address City/[facility]/ZIP Co de Phone Number [facility] [address] [place] [address], [place] * ANTI HIV 1/2 (10/18/2016 2:13 PM DISTRICT LEADER) HIV-1/HIV-2 ANTIBODY Non-Reacti ve Non-Reacti ve 10/18/2016 6:20 PM DISTRICT LEADER [facility] Blood BLOOD SPECIMEN / Unknown Venipuncture / Unknown 10/18/2016 2:13 PM DISTRICT LEADER 10/18/2016 2:13 PM DISTRICT LEADER Narrative [facility] - 10/18/2016 6:20 PM DISTRICT LEADER HIV-1 p24 and HIV-1/HIV-2 Ab not detected us Senait Curtis BUSINESS ANALYTICS SPECIALIST SEND OUTS Final Res ult [facility] [address] [place] [address], [place] * ANTI HCV (06/16/2015 10:49 AM CDT) HEPATITIS C ANTIBODY Non-Reacti ve Non-Reacti ve 06/16/2015 5:48 PM CDT [facility] Blood specimen (specimen) BLOOD SPECIMEN / Unknown Venipuncture / Unknown 06/16/2015 10:49 AM CDT 06/16/2015 10:50 AM CDT Narrative [facility] - 06/16/2015 5:48 PM CDT Antibodies to HCV not detected; does not exclude the possibility of exposure to HCV. Rachel Monet DO SEND OUTS Julianna l Result [facility] [address] [place] [address], [place] from Last 3 Months or Most Recently Relevant to Health Maintenance Insurance [employer] CHOICE [place] Care Teams Threading Machine Feeder Automatic Relationship Specialty Start Date End Date Светлана Malik [place] [address] [place] [address] PCP - General Family Practice 05/24/23
--- OUTSIDE RECORDS SUMMARY | 2024-11-07 18:34 | XMS_ITS | Encounter Summary ---
Author Organization [facility] Address [address] [place] [address] Care Team Providers Care Bottom Polisher Name Role Phone Needs Pcp, Assignment Primary Care Provider [phone] Encounter Details Date Type Department Care Team (Late st Contact Info) Description 06/08/2017 Scanned History External to External, [place] [address] [facility] Social History Tobacco Use Types Packs/Day [...] on filedocumented in this encounter Care Teams Bottom Polisher Relationship Specialty Start Date End Date Needs Pcp, Assignment [place], [place] [address] PCP - General 02/01/18 documented as of this encounter
--- OUTSIDE RECORDS SUMMARY | 2024-11-07 18:34 | XMS_ITS | Clinical Summary ---
Author Organization [facility] Address [address] [place] [address] Care Team Providers Care Natural Resource Economist Name Role Phone Needs Pcp, Assignment Primary Care Provider [phone] Source Comments You are receiving this document as you are listed as the primary care provider,follow-up provider, or the patient has been referred to you for consultation.This is in compliance with the Medicare and[facility]iocaid EHR Incentive Program,which states Providers who transition their patient to another setting of careor provider of care or refers their patient to another provider of care shouldprovide summary care record for each transition of care or referral. 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
--- OUTSIDE RECORDS SUMMARY | 2024-11-07 18:34 | XMS_ITS | Encounter Summary ---
Author Organization [facility] Address [address], [place] [address] Care Team Providers Care Distribution Accounting Clerk Name Role Phone Needs Pcp, Assignment Primary Care Provider [phone] Encounter Details Date Type Department Care Team [...] on filedocumented in this encounter Care Teams Distribution Accounting Clerk Relationship Specialty Start Date End Date Needs Pcp, María [facility] [place] [place], [place] [address] PCP - General 02/01/18 documented as of this encounter
--- OUTSIDE RECORDS SUMMARY | 2024-11-07 18:34 | XMS_ITS | Clinical Summary ---
Author Organization [facility] [employer] [facility] Address [address] [address] Phone Care Team Providers Care Sharepoint Developer Name Role Phone Joanne Ramsey APRN, MANAGER DECISION SUPPORT Unavailable Luisana Cuevas MD Primary Care Provider [phone] Allergies Active Allergy Reactions Criticality Noted Date [...] PM CDT Legal Sex Female 11:06 PM RETAIL SALESPERSON Gender Identity Female 11/08/2022 6:00 PM CDT [...] to complete this topic Insurance BLUE PLUS [facility] Advance Directives For more information, please contact: [phone] * Full Code (Latest Code Status on File) Date Activated Date Inactivated Comments 11/08/2022 6:25 PM 11/11/2022 4:46 PM Care Teams Sharepoint Developer Relationship Specialty Start Date End Date Luisana Cuevas MD [address] [id number] PCP - General gyro mechanic 03/28/23 Joanne Ramsey, ROLLER COASTER DESIGNER, MANAGER DECISION SUPPORT [address] [place] [phone] Nurse Practitioner Psychiatry 11/15/22
--- OUTSIDE RECORDS SUMMARY | 2024-11-07 18:34 | XMS_ITS | Patient Health Record ---
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) Active confirmed Problem 543063010 Morbid (severe) obesity due to excess calories (E66.01) Active confirmed Problem 456069128 Low vitamin D level (R79.89) Active confirmed Problem 019314016 Body mass index [BMI] 45.0-49.9, adult (Z68.42) Active confirmed Plan Of Treatment No Information Insurance Providers Payer Name Payer Address Payer Phone Subscriber Number Group Number Insured Name Patient Relationship to Insured Coverage Start Date Coverage End Date BLUE PLUS PMAP [address] [address] [place] [phone] [id number] [facility]ON Self - patient is the [...]
--- OUTSIDE RECORDS SUMMARY | 2024-11-07 18:34 | XMS_ITS | Encounter Summary ---
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
[2024-11-07 18:45] VITALS: BP 136/74; PULSE 80; RESP 16; TEMP 36.5; O2SAT 100; BMI 44.2
--- NOTE | 2024-11-07 19:28 | CRLHL7_ITS ---
For Patients: As a result of the Century Cures Act, medical imaging exams and procedure reports are released immediately into your electronic medical record. You may view this report before your referring provider. If you have questions, please contact your health care provider. INDICATION: Bleeding. TECHNIQUE: Ultrasound OB pelvis transvaginal. Real-time bruce-scale imaging of the pelvis was performed. COMPARISON: None. FINDINGS: There is a single intrauterine gestation. The embryo`s crown rump length measurement of 0.4 cm corresponds to a gestational age of 6 weeks 1 day with a sonographic due date of 07/02/2025. No heart rate yet identified. There is a normal appearing yolk sac. There are no gross abnormalities noted within the embryo at this early state of development. The placenta has not yet developed. There is no sign of perigestational hemorrhage. The ovaries are not visualized. There are no suspicious fluid collections noted in the cul-de-sac. IMPRESSION: Single intrauterine measuring 6 weeks 1 day. No heart rate yet identified. Recommend close clinical follow-up with serial B-HCGs and repeat US, as indicated. Dictated by Dhruv Koch MD @ 11/07/2024 9:03:58 PM (Electronically Signed)
--- NOTE | 2024-11-07 19:34 | ED_ITS ---
HPI - General Chief complaint: Vaginal Bleeding Stated complaint: poss miscarriage, 6 wks preg Time Seen by Provider: 11/07/24 19:19 Source: patient Mode of arrival: ambulatory Limitations: no limitations History of Present Illness HPI Narrative: Patient is a 29-year-old female presenting to the emergency department for vaginal bleeding. She is AT with an and miscarriage presenting to the emergency department for vaginal bleeding and pelvic cramping. She states she was here 1 week ago for mild vaginal bleeding and pelvic cramping and had ultrasound done showing she was 5 weeks . She was been having intermittent cramping since then and today she states she started having more bleeding. She states the bleeding was worse than last time but still is only going through a pad every 3-4 hours. Her 1st OB visit is in 2 weeks. She also states her cousin is in school to be an x ray tech and did an ultrasound which did not appear to show much growth with the fetus. Denies fevers, chills, chest pain, shortness of breath, abdominal pain, headache, this 27-year-old dizziness. She is having some mild lightheadedness but she said that is normal for her and does not seem much worse than her baseline. Related Data Home Medications ?Medication ?Instructions ?Recorded ?Confirmed clonazepam 0.5 mg tablet 0.5 mg PO BID PRN 06/29/23 11/01/24 metoprolol succinate 50 mg 50 mg PO DAILY 07/05/24 11/01/24 tablet,extended release 24 hr ondansetron HCl 4 mg tablet 4 mg PO Q8H PRN nausea and vomiting 07/06/24 11/01/24 citalopram 10 mg tablet 10 mg PO QDAY 07/18/24 11/01/24 lamotrigine 100 mg tablet 150 mg PO DAILY 07/18/24 11/01/24 tirzepatide (weight loss) 10 7.5 mg subcut .WEEKLY 07/18/24 07/18/24 mg/0.5 mL subcutaneous pen injector (Zepbound) Allergies Allergy/AdvReac Type Severity Reaction Status Date / Time ibuprofen Allergy Severe Anaphylaxis Verified 11/07/24 18:44 ciprofloxacin (From Cipro) Allergy Mild Anxiety Verified 11/07/24 18:44 Sulfa (Sulfonamide Allergy Mild Hives Verified 11/07/24 18:44 Antibiotics) kiwi Allergy Verified 11/07/24 18:44 pineapple Allergy Verified 11/07/24 18:44 Review of Systems Status of ROS: Reports: 10 or more systems reviewed and unremarkable except as noted in History and below PFSH PFS Medical History Obesity ?E66.9 - Obesity, unspecified (ICD-10) Aneurysm of anterior cerebral artery ?I67.1 - Cerebral aneurysm, nonruptured (ICD-10) Sinus tachycardia ?R00.0 - Tachycardia, unspecified (ICD-10) PTSD (post-traumatic stress disorder) ?F43.10 - Post-traumatic stress disorder, unspecified (ICD-10) Panic disorder ?F41.0 - Panic disorder [episodic paroxysmal anxiety] (ICD-10) JUAN PABLO (obstructive sleep apnea) ?G47.33 - Obstructive sleep apnea (adult) (pediatric) (ICD-10) Depression ?F32.A - Depression, unspecified (ICD-10) Surgical History History of open reduction and internal fixation (ORIF) procedure ?Z98.890 - Other specified postprocedural states (ICD-10) Family History Mother Addiction to drug Alcohol dependence Father Addiction to drug Alcohol dependence Maternal Grandmother Diabetes Maternal Grandfather Heart disease Paternal Grandmother Diabetes Paternal Grandfather Diabetes Social History What is your current living situation?: I presently have a place to live Problems where you live: no known problems Problems where you live details: N/A In the past 12 months, utilities in danger of being shut off: no In past 12 months, lack of transportation kept you from medical appts, meetings, work, or getting things needed for daily living: no In the past 12 mos, have been you worried that your food would run out before you had money to buy more?: never true In the past 12 mos, the food you bought just didn't last and you didn't have money to buy more?: never true Highest level of school completed/degree received: some college, no degree Smoking Status: Former smoker Second hand tobacco smoke exposure: Yes (Mother smokes) How often do you have a drink containing alcohol: never How often do you have six or more drinks on one occasion: Never AUDIT-C Alcohol total score: 0 Non-prescribed substance use: denies use Caffeine: No How often does anyone, including family, friends and others, physically hurt you : never How often does anyone, including family, friends and others, insult or talk down to you: never How often does anyone, including family, friends and others, threaten you with harm: never How often does anyone, including family, friends and others, scream or curse at you: never service: No Exam Narrative: Exam Narrative: Const: Well-nourished, Well-developed, in mild distress Eyes: PERRL, no conjunctival injection, and symmetrical lids HENT: Atraumatic external nose and ears. Moist mucous membranes. Neck: Symmetric, trachea midline, No thyromegaly. CVS: RRR, No murmurs or gallops. Peripheral pulses 2+ and equal in all extremities RESP: Unlabored respiratory effort. Clear to auscultation bilaterally. GI: Nontender/Nondistended, No rebound or guarding. MSK:Extremities w/o deformity, Normal Active ROM Skin: Warm, Dry. No rashes or lesions. Neuro: Normal Muscle tone, No focal neurological deficits. Psych: Awake, Alert, & Oriented x3. Appropriate mood and affect. Const: Vital Signs, click to edit/add: Vital Signs - 24 hr 11/07/24 18:45 Temperature 97.7 F Pulse Rate [Pulse Oximeter] 80 Respiratory Rate 16 Blood Pressure [Le ft Forearm] 136/74 Pulse Oximetry 100 Oxygen Delivery Me thod Room Air Course Vital Signs Vital signs: Initial Vital Signs Temperature 97.7 F 11/07/24 18:45 Temperature Source Temporal Artery Scan 11/07/24 18:45 Pulse Rate 80 11/07/24 18:45 Respiratory Rate 16 11/07/24 18:45 Blood Pressure 136/74 11/07/24 18:45 Blood Pressure Mean 94 11/07/24 18:45 Blood Pressure Position Sitting 11/07/24 18:45 Pulse Oximetry 100 11/07/24 18:45 Oxygen Delivery Method Room Air 11/07/24 18:45 Vital Signs Temperature 97.7 F 11/07/24 18:45 Pulse Rate 80 11/07/24 18:45 Respiratory Rate 16 11/07/24 18:45 Blood Pressure 136/74 11/07/24 18:45 Pulse Oximetry 100 11/07/24 18:45 Oxygen Delivery Method Room Air 11/07/24 18:45 Temperature 97.7 F 11/07/24 18:45 Pulse Rate 80 11/07/24 18:45 Respiratory Rate 16 11/07/24 18:45 Blood Pressure 136/74 11/07/24 18:45 Pulse Oximetry 100 11/07/24 18:45 Oxygen Delivery Method Room Air 11/07/24 18:45 MDM - OB/Uterine Contractions MDM Narrative Medical decision making narrative: Patient is a 29-year-old female with vaginal bleeding and pelvic cramping. She has a known intrauterine . Her vital signs are stable. Overall she appears well. I can check a hemoglobin to make sure she is not eating too much. Based on her description does not sound like she would require any acute emergent management of this vaginal bleeding. I spoke to her about doing a repeat ultrasound explained that is unlikely to foreign exchange position clerk but she would like it done since she knows if she is having another miscarriage or not. Ul trasound will be ordered. Hemoglobin is stable. Ultrasound is pending. Will be signed out to my colleague Lab Data Labs: Lab Results 11/07/24 Range/Units 19:45 WBC 9.54 (4.50-11.00) K/uL RBC 4.92 (4.00-5.20) m/uL Hgb 12.1 (12.0-16.0) gm/dL Hct 38.9 (33.0-51.0) % MCV 79 L (80-100) fL MCH 25 L (26-34) pg MCHC 31 L (32-36) gm/dL RDW Coeff of Gladis 15.7 H (11.5-15.5) % Plt Count 403 (140-440) K/uL Neut % (Auto) 60.4 (42.0-72.0) % Lymph % (Auto) 31.1 (20-44) % Bradley % (Auto) 6.2 (0.0-11.0) % Eos % (Auto) 1.6 (0.0-7.0) % Baso % (Auto) 0.6 (0.0-3.0) % Neut # (Auto) 5.76 (1.7-7.0) K/uL Lymph # (Auto) 2.97 H (0.90-2.90) K/uL Bradley # (Auto) 0.60 (0.00-0.90) K/UL Eos # (Auto) 0.15 (0.00-0.50) K/uL Baso # (Auto) 0.06 (0.00-0.30) K/uL Abs Immat Gran (auto) 0.01 (0.00-0.30) K/uL Imm/Tot Granulo (auto) 0.1 % Discharge Plan Discharge Clinical Impression: Bleeding in early Patient Disposition: Home, Self-Care Condition: Stable Additional Instructions: You can use Tylenol for your pelvic cramps. Make sure to keep your OB appointment. Return for re-evaluation if you start regularly saturating a pad every hour. Prescriptions: No Action clonazepam 0.5 mg tablet 0.5 mg PO BID PRN lamotrigine 100 mg tablet 150 mg PO DAILY citalopram 10 mg tablet 10 mg PO QDAY ondansetron HCl 4 mg tablet 4 mg PO Q8H PRN (Reason: nausea and vomiting) Zepbound 10 mg/0.5 mL pen injector 7.5 mg subcut .WEEKLY metoprolol succinate 50 mg tablet extended release 24 hr 50 mg PO DAILY Follow Up/Referrals: Светлана Malik DO [Primary Care Provider] - Stand Alone Forms: MyHealth Info Instructions
--- OUTSIDE RECORDS SUMMARY | 2024-11-07 19:35 | XMS_ITS | Encounter Summary ---
Author Organization [facility] Address [address] [place] [address] Care Team Providers Care Podiatric Physician Name Role Phone Kaitlin Hunter MD Primary Care Provider [phone] Serena Temple MD Unavailable [phone] Encounter Details Date Type Department Care Team (Latest Contact Info) Description 10/16/2021 Prep For Procedure [facility] [place] [address] [place], [place] [id number] [place] [address] [place] [address] [address] [place], [place] [id number] Syncope, unspecified syncope type (Primary Dx) Social [...] Sex Assigned at Female 07/02/2021 11:07 AM GREENHOUSE OR NURSERY TRANSPLANTER Legal Sex Female 4:50 PM CDT Gender Identity Female 07/02/2021 11:07 AM GREENHOUSE OR NURSERY TRANSPLANTER Sexual Orientation Bisexual 07/02/2021 11 :07 AM GREENHOUSE OR NURSERY TRANSPLANTER COVID-19 Exposure Response Date Recorded In the last month, have you been in contact with someone who was confirmed or suspected to have Coronavirus / COVID-19? No / Unsure 10/19/2021 1:16 PM GREENHOUSE OR NURSERY TRANSPLANTER documented as of this encounter Plan of Treatment Not on file documented as of this encounter Visit Diagnoses Diagnosis Syncope, unspecified syncope type- Primary documented in this encounter Additional Health Concerns Infection Onset Date Last Indicated Resolved Time COVID-19 01/27/2022 01/27/2022 02/26/2022 2:49 AM CDT documented as of this encounter Care Teams Podiatric Physician Relationship Specialty Start Date End Date Kaitlin Hunter MD [address] [place] [address] PCP - General Family Medicine 10/23/21 Serena Temple MD [address] [place] [address] [place] [address] Neurology 10/23/21 documented as of this encounter
--- OUTSIDE RECORDS SUMMARY | 2024-11-07 19:35 | XMS_ITS | Clinical Summary ---
Author Organization [facility] Address [address] [place] [address] Care Team Providers Care Fruit Coordinator Name Role Phone Kaitlin Hunter MD Primary Care Provider [phone] Serena Temple MD Unavailable [phone] Allergies Active Allergy Reactions Criticality Noted Date Comments Ibuprofen Swelling, lips/tongue,Rash High 6 Kiwi Hives Medium 10/08/2021 Medications levonorgestreL (MIRENA) 20 mcg/24 hours (6 yrs) 52 mg IU IUD 1 Device by Intrauterine route ONCE. Active Mth-Me Blue-Sod Uzvo-RuCqw-Agk (URIBEL) 118-10-40.8-36 mg oral Cap Take 1 [...] (10/22/2021): Added automatically from request for surgery [id number] JUAN PABLO (obstructive sleep apnea) 10/01/2021 Overview [...] Sex Assigned at Female 07/02/2021 11:07 AM SPORTS INTERN Legal Sex Female 4:50 PM CDT Gender Identity Female 07/02/2021 11:07 AM SPORTS INTERN Sexual Orientation Bisexual 07/02/2021 11 :07 AM SPORTS INTERN Last Filed Vital Signs Vital Sign Reading [...] PM CDT) Case Report Pap Smear Case: [id number] Authorizing Provider: Georgina Metzger PA-C Collected: 04/30/2020 06:28 PM Ordering Location: [facility] - Received: 05/01/2020 05:56 PM [facility] First Screen: Sumi Myrick Specimen: Cervical Thin Prep (HPV Reflex) Manager Of Merchandising Screen, Cervix 05/05/2020 3:37 PM CDT [facility] Interpretation Negative for intraepithelial lesion or malignant cells. 05/05/2020 3:37 PM CDT [facility] Specimen Adequacy Satisfactory for evaluation. Endocervical/trans formation zone component absent. 05/05/2020 3:37 PM CDT [facility] LMP 04/30/2020 05/05/2020 3:37 PM CDT [facility] Pap Disclaimer This specimen was screened by the ThinPrep Imaging System prior to manual review by a photolith operator and/or pathologist. The Pap test is a [...] 17 (5): S2-S27 05/05/2020 3:37 PM CDT [facility] Vaginal and cervical cytologic material (specimen) CERVIX UTERI STRUCTURE / Unknown 04/30/2020 6:28 PM CDT 05/01/2020 5:56 PM CDT Comment:No LMP recorded. (Me nstrual status: IUD). Georgina Metzger PA-C PATHOLOGY/CYTOLOGY ORDERABLE F inal Result Performing Organization Address City/[facility]/ZIP Co de Phone Number [facility] [address] [place] [address] * HEP C ANTIBODY (04/30/2020 5:54 PM CDT) Hepatitis C Antibody Non-Reacti ve Non-Reacti ve 05/01/2020 1:06 PM CDT [facility] Blood specimen (specimen) VENOUS BLOOD SPECIMEN / Unknown 04/30/2020 5:54 PM CDT 05/01/2020 11:44 AM CDT Georgina Metzger PA-C IMMUNOLOGY ORDERABLE Final Res ult Performing Organization Address City/[facility]/ZIP Co de Phone Number [facility] [address] [place], [place] [address] from Last 3 Months or Most Recently Relevant to Health Maintenance Care Teams Fruit Coordinator Relationship Specialty Start Date End Date Kaitlin Hunter MD [address] [place] [address] PCP - General Family Medicine 10/23/21 Serena Temple MD [address] [place] [address] Neurology 10/23/21
--- OUTSIDE RECORDS SUMMARY | 2024-11-07 19:35 | XMS_ITS | Encounter Summary ---
Author Organization Pending sale to [facility] Address [address], [place] [address] Care Team Providers Care Nuclear Radiation Engineer Name Role Phone Needs Pcp, Assignment Primary Care Provider [phone] Encounter Details Date Type Department Care Team [...] filedocumented in this encounter Care Teams Nuclear Radiation Engineer Relationship Specialty Start Date End Date Needs Pcp, María [facility] [place], [place] [address] PCP - General 02/01/18 documented as of this encounter
--- OUTSIDE RECORDS SUMMARY | 2024-11-07 19:35 | XMS_ITS | Encounter Summary ---
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
--- OUTSIDE RECORDS SUMMARY | 2024-11-07 19:35 | XMS_ITS | Clinical Summary ---
Author Organization [facility] Address [address] [facility] 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
--- OUTSIDE RECORDS SUMMARY | 2024-11-07 19:35 | XMS_ITS | Encounter Summary ---
Author Organization [facility] Address [address] [place] [address] Care Team Providers Care Fare Collector Name Role Phone Needs Pcp, Assignment Primary Care Provider [phone] Encounter Details Date Type Department Care Team (Late st Contact Info) Description 06/08/2017 Scanned History External to External, [place] [address] [facility] Social History Tobacco Use Types Packs/Day [...] on filedocumented in this encounter Care Teams Fare Collector Relationship Specialty Start Date End Date Needs Pcp, Assignment [place], [place] [address] PCP - General 02/01/18 documented as of this encounter
--- OUTSIDE RECORDS SUMMARY | 2024-11-07 19:35 | XMS_ITS | Clinical Summary ---
Author Organization [facility] Address [address] [place] [address] Care Team Providers Care Vamp Strap Ironer Name Role Phone Needs Pcp, Assignment Primary Care Provider [phone] Source Comments You are receiving this document as you are listed as the primary care provider,follow-up provider, or the patient has been referred to you for consultation.This is in compliance with the Medicare and[facility] Hospital[employer] EHR Incentive Program,which states Providers who transition their patient to another setting of careor provider of care or refers their patient to another provider of care shouldprovide summary care record for each transition of care or referral. 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
--- OUTSIDE RECORDS SUMMARY | 2024-11-07 19:35 | XMS_ITS | Clinical Summary ---
Author Organization [employer] [facility] Address [address] [place] [address] Care Team Providers Care Bullet Assembly Press Setter Operator Name Role Phone Светлана Malik Primary Care Provider [phone] Allergies Active Allergy Reactions Criticality Noted Date [...] affective disorder, remission status uns pecified 09/05/2024 [facility], Encounter for preconception consultation Overview (08/07/2024): Kami R Sheets : 1995 [facility] PRECONCEPTION CONSULTATION ON REFERRING PHYSICIAN/CLINIC LOCATION/FAX #/LAST UPDATE: Bullet Assembly Press Setter Operator Role and Specialty Contact Info Address Start End Comments Светлана Malik, [facility] (Family Practice) [address] [facility] [address] 05/24/2023 - - Primary MD approves scheduling of recommended ultrasounds/testing: Yes REASON FOR CONSULT: currently on zepbound, would like within a year , BMI 44 , Hx of cerebral aneurysm 06/2023- follows at [place] [facility] Everywhere TODAY'S APPOINTMENT: MD Consultation PRIMARY DIAGNOSIS: 29 y.o. Anxiety, depression 2016 C/S BMI 44 SPECIALISTS/CONSULTS: Dr Naun Lama Neurology at [place] - 03/05/24 Include: Specialty MD Clinic Name [...] imaging from 06/26/2023; following with neurology at [facility] - Visit 03/05/24, stated f/u was [...] currently taking Effexor and managed by Psychiatrist ([facility]) -Obese BMI is 42 with HgbA1c is normal (5.0) on 10/19/16 (7wks) LAST PAP SMEAR: 05/2016 Tobacco abuse 06/18/2015 05/23/2023 Tobacco use disorder 06/18/2015 023 Encounters Date Type Department Care Team Description 11/05/2024 1:00 PM CDT Orders Only [facility] [address] [place] [address] Lab 11/05/2024 Travel 11/02/2024 3:00 PM CDT Orders Only [facility] [address] [place] [address] Lab, [facility] 11/01/2024 1:45 PM CDT Ancillary Procedure [facility] [address] [address] 11/01/2024 10:50 AM CDT Office Visit [facility] [address] [place] [address] Светлана Malik, DO Confirmation (lmp 09/23/24, positive home test about 2 weeks ago. Is having left sided cramping that is mildly concerning. ) 11/01/2024 Travel 10/20/2024 11:40 AM SECRETARY OF STATE Office Visit [facility] [address] [place] [address] Marcio Ashton PA Abdominal Pain 10/20/2024 Travel 09/05/2024 7:30 AM SECRETARY OF STATE Telemedicine [facility] [address] [place] [address] Светлана Malik, DO Medication Management (metformin; would like to go on this to maintain current weight loss, no longer taking zepbound as of 08/02/24. ); Counseling (Would like to talk about ; IUD came out over the weekend while removing menstrual cup) 09/04/2024 8:05 AM SECRETARY OF STATE - 09/04/2024 11:59 PM SECRETARY OF STATE Hospital Encounter [facility] [address] [facility] [address] [place] [address] 09/04/2024 Travel 08/31/2024 Nurse Triage [facility] [address] [place] [address] Светлана Malik, DO Palpitations 08/13/2024 11:35 AM SECRETARY OF STATE Telemedicine [facility] [address] [place] [address] Jessi Golden NP Error-please disregard 08/13/2024 Travel 08/09/2024 12:20 PM SECRETARY OF STATE Telemedicine [facility] [address] [place] [address] Breann Hodges NP UTI 08/09/2024 7:41 AM SECRETARY OF STATE - 08/09/2024 11:59 PM SECRETARY OF STATE Hospital Encounter [facility] [address] [facility] [address] [place] [address] [facility], Encounter for preconception consultation (Primary Dx) 08/09/2024 7:17 AM SECRETARY OF STATE - 08/09/2024 7:40 AM SECRETARY OF STATE Hospital Encounter [facility] [address] [place] [address] 08/09/2024 Telephone [facility] [address] [place] [address] Светлана Malik, Medication Management (UTI medication) 08/09/2024 Orders Only [facility] [address] [facility] [address] [place] [address] Donna Angel, MS, CGC <No scans attached> [...] cancer Paternal Grandmother ADD / ADHD Son [place] Autism Son [place] Relation Name Status Comments Father Alive Maternal [...] on file Legal Sex Female 7:12 AM SECRETARY OF STATE Gender Identity Not on file Sexual Orientation Not on file Occupation Industry Job Start Date Job End Date works in [employer] Not on file Not on file Not [...] Bonilla MD Complications: Intolera nce,Dysfunctional Labor [facility] Last Filed Vital Signs Vital Sign Reading Time Taken Comments Blood Pressure 119/76 11/01/2024 10:58 AM CDT Pulse 84 11/01/2024 10:58 AM CDT Temperature 36.6 C (97.9 F) 10/20/2024 12:11 PM SECRETARY OF STATE Respiratory Rate 16 10/20/2024 12:1 1 PM SECRETARY OF STATE Oxygen Saturation 100% 10/20/2024 12: 11 PM SECRETARY OF STATE Inhaled Oxygen Concentration - - Weight 135.5 [...] Completed 05/17/2023, 03/23, 04/10/2013 (Completed outside of [facility]) COVID-19 vaccine series Completed 05/30/20, 06/01/2023, [...] Routine 11/01/2024 11:24 AM CDT Missed period DC BLOOD COUNT COMPLETE AUTO&AUTO DIFRNTL WBC Routine 10/20/2024 1:26 PM SECRETARY OF STATE Possible ISTAT CHEM 8 Routine 10/20/2024 1:26 PM SECRETARY OF STATE Possible URINE POCT Routine 10/20/2024 12:56 PM SECRETARY OF STATE Possible UA W/ SEDIMENT EXAM REFLEXED PER CRITERIA STAT 10/20/2024 12:56 PM SECRETARY OF STATE Possible HPV HIGH RISK Routine 05/23/2023 5:02 PM CDT Screening for malignant neoplasm of cervix ANTI HIV 1/2 Routine 10/18/2016 2:13 PM SECRETARY OF STATE Encounter for supervision of normal first in [...] Y 2,140 mIU/mL 11/05/2024 11:[address] [facility] Blood BLOOD SPECIMEN / Unknown [facility] / Unknown 11/05/2024 1:22 PM CDT 11/05/2024 1:23 PM CDT [facility] - 11/05/2024 11:21 PM CDT Expected [...] Erasmo Lanier MD CHEMISTRY Final R esult [facility] [address] [place] [address], [place] * US OB ANY TRI TV [...] of2 resultswithin the time period is included. [facility] POC HCG URINE POSITIVE(A ) NEGATIVE [facility] Urine URINE SPECIMEN / Unknown 11/01/2024 11:24 AM CDT 11/01/2024 11:24 AM CDT Светлана Malik DO URINE Final Resu lt [facility] [address] [place] [address], [facility] [address] [place] [address] * (ABNORMAL) ISTAT CHEM 8 BMP (10/20/2024 1:26 PM SECRETARY OF STATE) [facility] POCT, SODIUM, ISTAT 139 138 - 146 mmol/L [facility] (U POCT, POTASSIUM, ISTAT 4.3 3.5 - 4.9 mmol/L [facility] (U POCT, CHLORIDE, ISTAT 104 98 - 109 mmol/L [facility] (U POCT, CARBON DIOXIDE, ISTAT 23(L) 24 - 29 mmol/L [facility] (U POCT, GLUCOSE ISTAT 81 70 - 105 mg/dL [facility] (U POCT, UREA NITROGEN (BUN) ISTAT 8 8 - 26 mg/dL [facility] (U POCT,CREATININE , ISTAT 0.8 0.6 - 1.3 mg/dL [facility] (U POCT, CALCIUM, IONIZED, ISTAT 4.7 4.5 - 5.3 mg/dL [facility] (U Blood BLOOD SPECIMEN / Unknown 10/20/2024 1:26 PM SECRETARY OF STATE 10/20/2024 1:27 PM SECRETARY OF STATE us Marcio CROWELL CHEMISTRY Final R esult [facility] [address] [place] [address], [facility] (U [address] [place] [address] * (ABNORMAL) CBC AND DIFFERENTIAL (10/20/2024 1:26 PM SECRETARY OF STATE) WHITE BLOOD CELL COUNT 9.3 3.8 - 10.8 Thousand/u L [facility] (U RED BLOOD CELL COUNT 4.73 3.80 - 5.10 Million/uL [facility] (U HEMOGLOBIN 11.5(L) 11.7 - 15.5 g/dL [facility] (U HEMATOCRIT 37.5 35.0 - 45.0 % [facility] (U MCV 79.3(L) 80.0 - 100.0 fL [facility] (U MCH 24.3(L) 27.0 - 33.0 pg [facility] (U MCHC 30.7(L) 32.0 - 36.0 g/dL [facility] (U Comment: For adults, a slight decrease in the calculated MCHC value (in the range of 30 to 32 g/dL) is most likely not clinically significant; however, it should be interpreted with caution in correlation with other red cell parameters and the patient's clinical condition. RDW 14.9 11.0 - 15.0 % [facility] (U PLATELET COUNT 389 140 - 400 Thousand/u L [facility] (U MPV 9.3 7.5 - 12.5 fL [facility] (U ABSOLUTE NEUTROPHILS 5,031 1,500 - 7,800 cells/uL [facility] (U ABSOLUTE LYMPHOCYTES 3,450 850 - 3,900 cells/uL [facility] (U ABSOLUTE MONOCYTES 558 200 - 950 cells/uL [facility] (U ABSOLUTE EOSINOPHILS 223 15 - 500 cells/uL [facility] (U ABSOLUTE BASOPHILS 37 0 - 200 cells/uL [facility] (U NEUTROPHILS 54.1 % [facility] (U LYMPHOCYTES 37.1 % [facility] (U MONOCYTES 6.0 % [facility] (U EOSINOPHILS 2.4 % [facility] (U BASOPHILS 0.4 % [facility] (U Blood BLOOD SPECIMEN / Unknown 10/20/2024 1:26 PM SECRETARY OF STATE 10/20/2024 1:27 PM SECRETARY OF STATE us Marcio CROWELL HEMATOLOGY Final R esult [facility] [address] [place] [address], [facility] (U [address] [place] [address] * (ABNORMAL) UA W/ SEDIMENT EXAM REFLEXED PER CRITERIA [47118.2] (10/20/2024 12:56 PM SECRETARY OF STATE) COLOR YELLOW YELLOW [facility] (U APPEARANCE CLEAR CLEAR [facility] (U SPECIFIC GRAVITY 1.015 1.001 - 1.035 [facility] (U PH 5.5 5.0 - 8.0 [facility] (U GLUCOSE NEGATIVE NEGATIVE [facility] (U BILIRUBIN NEGATIVE NEGATIVE [facility] (U KETONES NEGATIVE NEGATIVE [facility] (U OCCULT BLOOD TRACE(A) NEGATIVE [facility] (U PROTEIN NEGATIVE NEGATIVE [facility] (U NITRITE NEGATIVE NEGATIVE [facility] (U LEUKOCYTE ESTERASE NEGATIVE NEGATIVE [facility] (U WBC UA NONE SEEN < OR = 5 /HPF [facility] (U RBC UA 0-2 < OR = 2 /HPF [facility] (U SQUAMOUS EPITHELIAL CELLS UA 0-5 < OR = 5 /HPF [facility] (U BACTERIA UA NONE SEEN NONE SEEN /HPF [facility] (U NOTE UA [facility] (U Comment: This urine was analyzed for the presence of WBC, RBC, bacteria, casts, and other formed elements. Only those elements seen were reported. Urine URINE SPECIMEN / Unknown 10/20/2024 12:56 PM SECRETARY OF STATE 10/20/2024 12:57 PM SECRETARY OF STATE us Marcio CROWELL URINE Final R esult [facility] [address] [place] [address], [facility] (U [address] [place] [address] * HPV HIGH RISK (05/23/2023 5:02 PM CDT) TYPE 16 Negative Negative 05/27/2023 1:16 PM CDT [facility] TYPE 18 Negative Negative 05/27/2023 1:16 PM CDT [facility] OTHER HIGH RISK TYPES Negative Negative 05/27/2023 1:16 PM CDT [facility] Other (Cervical) Non-Blood / Unknown 05/23/2023 5:02 PM CDT 05/24/2023 5:02 PM CDT Narrative [facility] - 05/27/2023 1:16 PM CDT HPV types 16, 18, 31, 33, 35, 39, 45, 51, 52, 56, 58, 59, 66 and 68 DNA were undetectable or below the pre-set threshold. Methodology: Steve Nikki 4800 HPV Test us Светлана Malik DO MICROBIOLOGY Final Resu lt Performing Organization Address City/[facility]/ZIP Co de Phone Number [facility] [address] [place] [address], [place] * ANTI HIV 1/2 (10/18/2016 2:13 PM SECRETARY OF STATE) HIV-1/HIV-2 ANTIBODY Non-Reacti ve Non-Reacti ve 10/18/2016 6:20 PM SECRETARY OF STATE [facility] Blood BLOOD SPECIMEN / Unknown Venipuncture / Unknown 10/18/2016 2:13 PM SECRETARY OF STATE 10/18/2016 2:13 PM SECRETARY OF STATE Narrative [facility] - 10/18/2016 6:20 PM SECRETARY OF STATE HIV-1 p24 and HIV-1/HIV-2 Ab not detected us Senait Curtis UTILITY OPERATOR YARN SEND OUTS Final Res ult [facility] [address] [place] [address], [place] * ANTI HCV (06/16/2015 10:49 AM CDT) HEPATITIS C ANTIBODY Non-Reacti ve Non-Reacti ve 06/16/2015 5:48 PM CDT [facility] Blood specimen (specimen) BLOOD SPECIMEN / Unknown Venipuncture / Unknown 06/16/2015 10:49 AM CDT 06/16/2015 10:50 AM CDT Narrative [facility] - 06/16/2015 5:48 PM CDT Antibodies to HCV not detected; does not exclude the possibility of exposure to HCV. Rachel Monet DO SEND OUTS Julianna l Result [facility] [address] [place] [address], [place] from Last 3 Months or Most Recently Relevant to Health Maintenance Insurance [employer] [place] Care Teams Bullet Assembly Press Setter Operator Relationship Specialty Start Date End Date Светлана [place] [address] [place] [address] PCP - General Family Practice 05/24/23
--- OUTSIDE RECORDS SUMMARY | 2024-11-07 19:35 | XMS_ITS | Referral Summary ---
Author Organization [facility] Address [address] [place] [address] Care Team Providers Care Java Developer Consultant Name Role Phone Kaitlin Hunter MD Primary Care Provider [phone] Serena Temple MD Unavailable [phone] Allergies Active Allergy Reactions Criticality Noted Date Comments Ibuprofen Swelling, lips/tongue,Rash High 6 Kiwi Hives Medium 10/08/2021 Medications levonorgestreL (MIRENA) 20 mcg/24 hours (6 yrs) 52 mg IU IUD 1 Device by Intrauterine route ONCE. Active Mth-Me Blue-Sod Fuhg-AvLme-Dkd (URIBEL) 118-10-40.8-36 mg oral Cap Take 1 [...] (10/22/2021): Added automatically from request for surgery [id number] JUAN PABLO (obstructive sleep apnea) 10/01/2021 Overview [...] Sex Assigned at Female 07/02/2021 11:07 AM MINERAL WOOL INSULATION SUPERVISOR Legal Sex Female 4:50 PM CDT Gender Identity Female 07/02/2021 11:07 AM MINERAL WOOL INSULATION SUPERVISOR Sexual Orientation Bisexual 07/02/2021 11 :07 AM MINERAL WOOL INSULATION SUPERVISOR Last Filed Vital Signs Vital Sign Reading [...] PM CDT) Case Report Pap Smear Case: [id number] Authorizing Provider: Georgina Metzger PA-C Collected: 04/30/2020 06:28 PM Ordering Location: [facility] - Received: 05/01/2020 05:56 PM [facility] First Screen: Sumi Myrick Specimen: Cervical Thin Prep (HPV Reflex) Trailer Tank Truck Driver Screen, Cervix 05/05/2020 3:37 PM CDT [facility] Interpretation Negative for intraepithelial lesion or malignant cells. 05/05/2020 3:37 PM CDT [facility] Specimen Adequacy Satisfactory for evaluation. Endocervical/trans formation zone component absent. 05/05/2020 3:37 PM CDT [facility] LMP 04/30/2020 05/05/2020 3:37 PM CDT [facility] Pap Disclaimer This specimen was screened by the [employer] Imaging System prior to manual review by a digital solution architect and/or pathologist. The Pap test is a [...] 17 (5): S2-S27 05/05/2020 3:37 PM CDT [facility] Vaginal and cervical cytologic material (specimen) CERVIX UTERI STRUCTURE / Unknown 04/30/2020 6:28 PM CDT 05/01/2020 5:56 PM CDT Comment:No LMP recorded. (Nd nstrual status: IUD). Georgina Metzger PA-C PATHOLOGY/CYTOLOGY ORDERABLE F inal Result [facility] [address] [place] [id number] * HEP C ANTIBODY (04/30/2020 5:54 PM CDT) Hepatitis C Antibody Non-Reacti ve Non-Reacti ve 05/01/2020 1:06 PM CDT [facility] Blood specimen (specimen) VENOUS BLOOD SPECIMEN / Unknown 04/30/2020 5:54 PM CDT 05/01/2020 11:44 AM CDT Georgina Metzger PA-C IMMUNOLOGY ORDERABLE Final Res ult [facility] [address] [place] [address] from Last 3 Months or Most Recently Relevant to Health Maintenance Care Teams Java Developer Consultant Relationship Specialty Start Date End Date Kaitlin Hunter MD [address] [facility] [address] [place] [address] PCP - General Family Medicine 10/23/21 Serena Temple MD [address] [facility] [address] [place] [address] Neurology 10/23/21
--- OUTSIDE RECORDS SUMMARY | 2024-11-07 19:35 | XMS_ITS | Clinical Summary ---
Author Organization [facility] Address [address] [address] Phone Care Team Providers Care Extension Educator Name Role Phone Joanne Ramsey APRN, POLICYHOLDER INFORMATION CLERK Unavailable Luisana Cuevas MD Primary Care Provider [phone] Allergies Active Allergy Reactions Criticality Noted Date [...] PM CDT Legal Sex Female 11:06 PM DRY CLEANING SUPERVISOR Gender Identity Female 11/08/2022 6:00 PM CDT [...] to complete this topic Insurance BLUE PLUS [facility] Advance Directives For more information, please contact: [phone] * Full Code (Latest Code Status on File) Date Activated Date Inactivated Comments 11/08/2022 6:25 PM 11/11/2022 4:46 PM Care Teams Extension Educator Relationship Specialty Start Date End Date Luisana Cuevas MD [address] [id number] PCP - General stock preparer 03/28/23 Joanne Ramsey, GREEN HOUSE MANAGER, POLICYHOLDER INFORMATION CLERK [address] [place] [id number] Nurse Practitioner Psychiatry 11/15/22
--- OUTSIDE RECORDS SUMMARY | 2024-11-07 19:35 | XMS_ITS | Clinical Summary ---
Author Organization [facility] Address [address] [place] [address] Care Team Providers Care Manager Drive Name Role Phone Elsewhere, Pcp Primary Care Provider Unavailabl e Source Comments Patient records contain information from all sites at [facility]. For routine questions regarding patient records, call [phone] during business hours, M-F 8:00 AM - 5:00 PM Central Time. Record requests for emergency care only can be directed to [phone] at any time.[facility] Allergies Active Allergy Reactions Criticality Noted [...] your living situation today? I have a [facility] place to live 07/27/2023 Comments Unknown Sex and Gender Information Value Date Recorded Sex Assigned at Female 07/27/2023 7:49 AM LOAN SERVICE OFFICER Legal Sex Female 10:27 AM LOAN SERVICE OFFICER Gender Identity Female 07/27/2023 7:49 AM LOAN SERVICE OFFICER Sexual Orientation Bisexual 07/27/2023 7: 49 AM LOAN SERVICE OFFICER Last Filed Vital Signs Vital Sign Reading Time Taken Comments Blood Pressure 116/72 06/01/2024 5:30 PM CDT Pulse 85 06/01/2024 5:30 PM CDT Temperature 36.1 C (97 F) 09/05/2023 1:32 PM LOAN SERVICE OFFICER Respiratory Rate 28 06/01/2024 5:30 PM CDT [...] this topic Medical Devices Implanted Type Area Wood Dowel Machine Operator Device Identifier Shelf Expiration Date Model / Serial / Lot Hardware E.G. Pins/Screws/Milo s Hardware e.g. pins/screws/milo s Right: Arm Intrauterine Device Intrauterine Device Uterus Description:Mirena Insurance [facility] [place] [address] Relationship Specialty Start Date End Date Elsewhere, Pcp PCP - General Internal Medicine 03/01/24
[2024-11-07 19:52] LABS: Basophils Absolute Auto 0.06 K/uL (0.00-0.30); Basophils Percent Auto 0.6 % (0.0-3.0); Eosinophils Absolute Auto 0.15 K/uL (0.00-0.50); Eosinophils Percent Auto 1.6 % (0.0-7.0); Hematocrit 38.9 % (33.0-51.0); Hemoglobin* 12.1 gm/dL (12.0-16.0); Immature Granulocytes Abs Auto 0.01 K/uL (0.00-0.30); Immature Granulocytes Pct Auto 0.1 %; Lymphocytes Absolute Auto 2.97 K/uL (0.90-2.90); Lymphocytes Percent Auto 31.1 % (20-44); Mean Corpuscular HGB Conc 31 gm/dL (32-36); Mean Corpuscular Hemoglobin 25 pg (26-34); Mean Corpuscular Volume 79 fL (80-100); Monocytes Percent Auto 6.2 % (0.0-11.0); Neutrophils Absolute Auto 5.76 K/uL (1.7-7.0); Neutrophils Percent Auto 60.4 % (42.0-72.0); Platelet Count* 403 K/uL (140-440); RDW Coefficient of Variation % 15.7 % (11.5-15.5); Red Blood Count 4.92 m/uL (4.00-5.20); White Blood Count* 9.54 K/uL (4.50-11.00)
[2024-11-07 19:58] LABS: Slide Review Reflex No
--- NOTE | 2024-11-07 21:19 | ED_ITS ---
HPI - General Adult General Chief complaint: Vaginal Bleeding Stated complaint: poss miscarriage, 6 wks preg Time Seen by Provider: 11/07/24 19:19 Source: patient Mode of arrival: ambulatory Limitations: no limitations Related Data Home Medications ?Medication ?Instructions ?Recorded ?Confirmed clonazepam 0.5 mg tablet 0.5 mg PO BID PRN 06/29/23 11/01/24 metoprolol succinate 50 mg 50 mg PO DAILY 07/05/24 11/01/24 tablet,extended release 24 hr ondansetron HCl 4 mg tablet 4 mg PO Q8H PRN nausea and vomiting 07/06/24 11/01/24 citalopram 10 mg tablet 10 mg PO QDAY 07/18/24 11/01/24 lamotrigine 100 mg tablet 150 mg PO DAILY 07/18/24 11/01/24 tirzepatide (weight loss) 10 7.5 mg subcut .WEEKLY 07/18/24 07/18/24 mg/0.5 mL subcutaneous pen injector (Zepbound) Allergies Allergy/AdvReac Type Severity Reaction Status Date / Time ibuprofen Allergy Severe Anaphylaxis Verified 11/07/24 18:44 ciprofloxacin (From Cipro) Allergy Mild Anxiety Verified 11/07/24 18:44 Sulfa (Sulfonamide Allergy Mild Hives Verified 11/07/24 18:44 Antibiotics) kiwi Allergy Verified 11/07/24 18:44 pineapple Allergy Verified 11/07/24 18:44 PFSH PFSH Medical History Obesity ?E66.9 - Obesity, unspecified (ICD-10) Aneurysm of anterior cerebral artery ?I67.1 - Cerebral aneurysm, nonruptured (ICD-10) Sinus tachycardia ?R00.0 - Tachycardia, unspecified (ICD-10) PTSD (post-traumatic stress disorder) ?F43.10 - Post-traumatic stress disorder, unspecified (ICD-10) Panic disorder ?F41.0 - Panic disorder [episodic paroxysmal anxiety] (ICD-10) JUAN PABLO (obstructive sleep apnea) ?G47.33 - Obstructive sleep apnea (adult) (pediatric) (ICD-10) Depression ?F32.A - Depression, unspecified (ICD-10) Surgical History History of open reduction and internal fixation (ORIF) procedure ?Z98.890 - Other specified postprocedural states (ICD-10) Family History Mother Addiction to drug Alcohol dependence Father Addiction to drug Alcohol dependence Maternal Grandmother Diabetes Maternal Grandfather Heart disease Paternal Grandmother Diabetes Paternal Grandfather Diabetes Social History What is your current living situation?: I presently have a place to live Problems where you live: no known problems Problems where you live details: N/A In the past 12 months, utilities in danger of being shut off: no In past 12 months, lack of transportation kept you from medical appts, meetings, work, or getting things needed for daily living: no In the past 12 mos, have been you worried that your food would run out before you had money to buy more?: never true In the past 12 mos, the food you bought just didn't last and you didn't have money to buy more?: never true Highest level of school completed/degree received: some college, no degree Smoking Status: Former smoker Second hand tobacco smoke exposure: Yes (Mother smokes) How often do you have a drink containing alcohol: never How often do you have six or more drinks on one occasion: Never AUDIT-C Alcohol total score: 0 Non-prescribed substance use: denies use Caffeine: No How often does anyone, including family, friends and others, physically hurt you : never How often does anyone, including family, friends and others, insult or talk down to you: never How often does anyone, including family, friends and others, threaten you with harm: never How often does anyone, including family, friends and others, scream or curse at you: never service: No Exam Const: Vital Signs, click to edit/add: Vital Signs - 24 hr 11/07/24 18:45 Temperature 97.7 F Pulse Rate [Pulse Oximeter] 80 Respiratory Rate 16 Blood Pressure [Le ft Forearm] 136/74 Pulse Oximetry 100 Oxygen Delivery Me thod Room Air Course Vital Signs Vital signs: Initial Vital Signs Temperature 97.7 F 11/07/24 18:45 Temperature Source Temporal Artery Scan 11/07/24 18:45 Pulse Rate 80 11/07/24 18:45 Respiratory Rate 16 11/07/24 18:45 Blood Pressure 136/74 11/07/24 18:45 Blood Pressure Mean 94 11/07/24 18:45 Blood Pressure Position Sitting 11/07/24 18:45 Pulse Oximetry 100 11/07/24 18:45 Oxygen Delivery Method Room Air 11/07/24 18:45 Vital Signs Temperature 97.7 F 11/07/24 18:45 Pulse Rate 80 11/07/24 18:45 Respiratory Rate 16 11/07/24 18:45 Blood Pressure 136/74 11/07/24 18:45 Pulse Oximetry 100 11/07/24 18:45 Oxygen Delivery Method Room Air 11/07/24 18:45 Temperature 97.7 F 11/07/24 18:45 Pulse Rate 80 11/07/24 18:45 Respiratory Rate 16 11/07/24 18:45 Blood Pressure 136/74 11/07/24 18:45 Pulse Oximetry 100 11/07/24 18:45 Oxygen Delivery Method Room Air 11/07/24 18:45 Medical Decision Making MDM Narrative Medical decision making narrative: Chuck -- Inherited this patient today at change of shift pending OB ultrasound. Did review results with green prize packer. No concerning findings at this time. I have reviewed records otherwise. As noted spotting throughout the day I did ask about recent intercourse; it sounds as though this may have occurred and might be a an explanation for this type of bleeding. Radiology over-read or below INDICATION: Bleeding. TECHNIQUE: Ultrasound OB pelvis transvaginal. Real-time bruce-scale imaging of the pelvis was performed. COMPARISON: None. FINDINGS: There is a single intrauterine gestation. The embryo`s crown rump length measurement of 0.4 cm corresponds to a gestational age of 6 weeks 1 day with a sonographic due date of 07/02/2025. No heart rate yet identified. There is a normal appearing yolk sac. There are no gross abnormalities noted within the embryo at this early state of development. The placenta has not yet developed. There is no sign of perigestational hemorrhage. The ovaries are not visualized. There are no suspicious fluid collections noted in the cul-de-sac. IMPRESSION: Single intrauterine measuring 6 weeks 1 day. No heart rate yet identified. Recommend close clinical follow-up with serial B-HCGs and repeat US, as indicated. Dictated by Dhruv Koch MD @ 11/07/2024 9:03:58 P Lab Data Labs: Lab Results 11/07/24 Range/Units 19:45 WBC 9.54 (4.50-11.00) K/uL RBC 4.92 (4.00-5.20) m/uL Hgb 12.1 (12.0-16.0) gm/dL Hct 38.9 (33.0-51.0) % MCV 79 L (80-100) fL MCH 25 L (26-34) pg MCHC 31 L (32-36) gm/dL RDW Coeff of Gladis 15.7 H (11.5-15.5) % Plt Count 403 (140-440) K/uL Neut % (Auto) 60.4 (42.0-72.0) % Lymph % (Auto) 31.1 (20-44) % [place] % (Auto) 6.2 (0.0-11.0) % Eos % (Auto) 1.6 (0.0-7.0) % Baso % (Auto) 0.6 (0.0-3.0) % Neut # (Auto) 5.76 (1.7-7.0) K/uL Lymph # (Auto) 2.97 H (0.90-2.90) K/uL [place] # (Auto) 0.60 (0.00-0.90) K/UL Eos # (Auto) 0.15 (0.00-0.50) K/uL Baso # (Auto) 0.06 (0.00-0.30) K/uL Abs Immat Gran (auto) 0.01 (0.00-0.30) K/uL Imm/Tot Granulo (auto) 0.1 % HCG, Qual Cancelled HCG, Quant 4524.20 mIU/mL Discharge Plan Discharge Clinical Impression: Bleeding in early Patient Disposition: Home, Self-Care Condition: Stable Additional Instructions: You can use Tylenol for your pelvic cramps. Make sure to keep your OB appointment. Return for re-evaluation if you start regularly saturating a pad every hour. Prescriptions: No Action clonazepam 0.5 mg tablet 0.5 mg PO BID PRN lamotrigine 100 mg tablet 150 mg PO DAILY citalopram 10 mg tablet 10 mg PO QDAY ondansetron HCl 4 mg tablet 4 mg PO Q8H PRN (Reason: nausea and vomiting) Zepbound 10 mg/0.5 mL pen injector 7.5 mg subcut .WEEKLY metoprolol succinate 50 mg tablet extended release 24 hr 50 mg PO DAILY Follow Up/Referrals: Светлана Malik DO [Primary Care Provider] - Stand Alone Forms: [facility] Info Instructions
[2024-11-07 21:21] VITALS: BP 128/75; PULSE 75; RESP 16; TEMP 36.5; O2SAT 100
[2024-11-07 21:22] VITALS: BP 128/75; PULSE 75; RESP 16; TEMP 36.5
== END 2024-11-07 21:22 | disposition home or self-care (01) ==
PROVIDERS: Student in an Organized Health Care Education/Training Program; Emergency Provider Family Medicine; PCP Family Medicine
DX: O20.9 Hemorrhage in early pregnancy, unspecified (principal)
CPT/HCPCS: 36415; 76817; 84702; 84703; 85025; 99283; 99284

== ENCOUNTER 2024-11-23 08:58 | Outpatient (CLI) | payer BC, SELFPAY ==
--- NOTE | 2024-11-23 09:15 | CRLHL7_ITS ---
For Patients: As a result of the Century Cures Act, medical imaging exams and procedure reports are released immediately into your electronic medical record. You may view this report before your referring provider. If you have questions, please contact your health care provider. OB ULTRASOUND LESS THAN 14 WEEKS, 11/23/2024 CLINICAL HISTORY: Followup viability. COMPARISON: 11/07/2024. TECHNIQUE: Real time bruce scale imaging of the fetus was performed transvaginally. FINDINGS: JENY by US: 07/02/2025. GA: 6 weeks 1 day. CRL: 1.8 cm, 8 weeks 2 days. JENY: 07/03/2025. FHR: 174 bpm. GEST SAC: 2.2 cm, appears within normal limits. YOLK SAC: 2.9 mm, appears within normal limits. RIGHT OVARY: Not visualized. LEFT OVARY: 2.4 x 1.9 x 2.2 cm, within normal limits. IMPRESSION: 1. Single living intrauterine which measures 8 weeks 2 days and sonographic due date 07/03/2025. 2. section scar noted which contains a small amount of fluid. Jah Goldberg M.D. Diagnostic Radiologist [email or web address] Transcribed: 1:35 pm DW/Dictated by: Jah Goldberg MD @ 11/23/2024 12:17:00 PM (Electronically Signed)
== END 2024-11-23 08:59 | disposition home or self-care (01) ==
LOC: US 08:59
PROVIDERS: PCP Family Medicine; Visit Provider Physician Assistant
DX: Z34.91 Encounter for supervision of normal pregnancy, unspecified, first trimester (principal); Z3A.08 8 weeks gestation of pregnancy
CPT/HCPCS: 76817; 83021; 86592; 86703; 86704; 86706; 86762; 86787; 86803; 86850; 86900; 86901; 87086; 87340; 87491; 87591

== ENCOUNTER 2024-12-11 18:09 | Emergency (ER) | payer BC, MEDICAID, SELFPAY ==
--- OUTSIDE RECORDS SUMMARY | 2024-12-11 18:11 | XMS_ITS | Clinical Summary ---
Author Organization [facility] Address [address] [place] [address] Care Team Providers Care Utility Worker [place] Name Role Phone Kaitlin Hunter MD Primary Care Provider [phone] Serena Temple MD Unavailable [phone] Allergies Active Allergy Reactions Criticality Noted Date Comments Ibuprofen Swelling, lips/tongue,Rash High 6 Kiwi Hives Medium 10/08/2021 Medications levonorgestreL (MIRENA) 20 mcg/24 hours (6 yrs) 52 mg IU IUD 1 Device by Intrauterine route ONCE. Active Mth-Me Blue-Sod Lcov-BwMse-Vjy (URIBEL) 118-10-40.8-36 mg oral Cap Take 1 [...] (10/22/2021): Added automatically from request for surgery [id number] JUAN PABLO (obstructive sleep apnea) 10/01/2021 Overview [...] Sex Assigned at Female 07/02/2021 11:07 AM COMMUNITY ENGAGEMENT LEADER Legal Sex Female 4:50 PM CDT Gender Identity Female 07/02/2021 11:07 AM COMMUNITY ENGAGEMENT LEADER Sexual Orientation Bisexual 07/02/2021 11 :07 AM COMMUNITY ENGAGEMENT LEADER Last Filed Vital Signs Vital Sign Reading [...] Vaccine ( season) 2024 09/25/2021, 02/23/2021, 02/02/2021 Colonoscopy 12/23/2024 12/24/2019 Influenza Vaccine (Season Ended) 2025 05/15/2021, 07/04/2020, 07/03/2019, Additional history exists Adult Tetanus Booster 10/14/2030 10/14/2020 , 04/10/2013, [...] PM CDT) Case Report Pap Smear Case: [id number] Authorizing Provider: Georgina Metzger PA-C Collected: 04/30/2020 06:28 PM Ordering Location: [facility] - Received: 05/01/2020 05:56 PM [facility] First Screen: Sumi Myrick Specimen: Cervical Thin Prep (HPV Reflex) Front Edger Screen, Cervix 05/05/2020 3:37 PM CDT [facility] Interpretation Negative for intraepithelial lesion or malignant cells. 05/05/2020 3:37 PM CDT [facility] Specimen Adequacy Satisfactory for evaluation. Endocervical/trans formation zone component absent. 05/05/2020 3:37 PM CDT [facility] LMP 04/30/2020 05/05/2020 3:37 PM CDT [facility] Pap Disclaimer This specimen was screened by the ThinPrep Imaging System prior to manual review by a clear coat sprayer and/or pathologist. The Pap test is a [...] 17 (5): S2-S27 05/05/2020 3:37 PM CDT [facility] Vaginal and cervical cytologic material (specimen) CERVIX UTERI STRUCTURE / Unknown 04/30/2020 6:28 PM CDT 05/01/2020 5:56 PM CDT Comment:No LMP recorded. (Me nstrual status: IUD). Georgina Metzger PA-C PATHOLOGY/CYTOLOGY ORDERABLE F inal Result Performing Organization Address City/[facility]/ZIP Co de Phone Number [facility] [address] [place] [id number] * HEP C ANTIBODY (04/30/2020 5:54 PM CDT) Hepatitis C Antibody Non-Reacti ve Non-Reacti ve 05/01/2020 1:06 PM CDT [facility] Blood specimen (specimen) VENOUS BLOOD SPECIMEN / Unknown 04/30/2020 5:54 PM CDT 05/01/2020 11:44 AM CDT Georgina Metzger PA-C IMMUNOLOGY ORDERABLE Final Res ult Performing Organization Address City/[facility]/ZIP Co de Phone Number [facility] [address] [place], [place] [address] from Last 3 Months or Most Recently Relevant to Health Maintenance Care Teams Utility Worker [place] Relationship Specialty Start Date End Date Kaitlin Hunter MD [address] [place] [address] PCP - General Family Medicine 10/23/21 Serena Temple MD [address] [place] [address] Neurology 10/23/21
--- OUTSIDE RECORDS SUMMARY | 2024-12-11 18:11 | XMS_ITS | Clinical Summary ---
Author Organization [facility] Address [address] [place] [id number] Care Team Providers Care Editor Index Name Role Phone Daisy Beebe PA-C Unavailable [phone] System, Provider Not In Primary Care Provider Un available Nilam Beal MD Unavailable Allergies Active Allergy Reactions Criticality Noted Date Comments Ibuprofen Hives,Rash High 12/29/2014 Other reaction(s): Swelling, lips/tongue Other reaction(s): Hives Kiwi Hives High 10/08/2021 Kiwi Extract Anaphylaxis High 11/08/2022 Levofloxacin Anxiety High 11/08/2022 Causes panic attacks No Known Allergies 05/21/2002 Pineapple Anaphylaxis High 11/08/2022 Sulfa Antibiotics Anaphylaxis High 11/08/2022 Medications Cholecalciferol 100 MCG (4000 UT) TABS Active albuterol (PROAIR HFA/PROVENTIL HFA/VENTOLIN HFA) 108 (90 Base) MCG/ACT inhalerIndicati ons:Infection due to 2019 novel coronavirus Inhale 2 puffs into the lungs every 6 hours as needed for shortness of breath, wheezing or cough 18 g 1 09/21/19 23 Active acetaminophen (TYLENOL) 500 MG tablet Take 1,000 mg by mouth. Active Acetaminophen 325 MG CAPS Take by mouth. Active citalopram (CELEXA) 10 MG tablet Take 10 mg by mouth. 07/13/20 24 Active metoprolol succinate ER (TOPROL XL) 50 MG 24 hr tablet Take 50 mg by mouth daily. Active desvenlafaxine (PRISTIQ) 50 MG 24 hr tablet Take 1 tablet by mouth daily 07/15/20 22 025 Discontinued (Therapy completed (No AVS)) metFORMIN (GLUCOPHAGE) 500 MG tablet Take 500 mg by mouth daily (with breakfast) TWICE DAILY 025 Discontinued (Therapy completed (No AVS)) fluticasone (FLONASE) 50 MCG/ACT nasal sprayIndication s:Infection due to 2019 novel coronavirus [place] 2 sprays into both nostrils daily 18 mL 1 09/21/19 23 025 Discontinued (Therapy completed (No AVS)) LORazepam (ATIVAN) 0.5 MG tabletIndicatio ns:Anxiety Take 1 tablet (0.5 mg) by mouth every 6 hours as needed for anxiety 5 tablet 09/21/19 23 025 Discontinued (Therapy completed (No AVS)) clonazePAM (KLONOPIN) 0.5 MG tablet Take 0.5 mg by mouth. 03/22/20 24 025 Discontinued (Therapy completed (No AVS)) BINAXNOW COVID-19 AG HOME TEST KIT TEST DIRECTED TODAY 11/17/19 24 025 Discontinued (Therapy completed (No AVS)) docusate sodium (DSS) 250 MG capsule Take 250 mg by mouth. 09/29/19 24 025 Discontinued (Therapy completed (No AVS)) HYDROcodone-matheus taminophen (NORCO) 5-325 MG tablet TAKE 1 TO 2 TABLETS BY MOUTH EVERY 4-6HR NEEDED FOR PAIN 07/08/20 24 025 Discontinued (Therapy completed (No AVS)) Active Problems Problem Noted Date Diagnosed Date Infection due to 2018 novel coronavirus 09/21/19 23 JUAN PABLO (obstructive sleep apnea) 10/01/2021 Overview (09/21/2022): AHI 10, desats to 84% HST Rx 5-20 ADAPT Anemia 12/11/2020 Anesthesia complication 12/11/2020 Overview (09/21/2022): wakes up during procedure wakes up during procedure IUD (intrauterine device) in place 11/14/2020 Overview (09/21/2022): Due for removal 10/2025 Endometriosis determined by laparoscopy 10/21/19 Overview (09/21/2022): Stage 2; Dr. Street Full-term [...] Overview (09/21/2022): effexor XR 150 mg qd Comments Yes Resolved Problems Problem Noted Date Diagnosed Date Resolved Date Emotional disturbance of chi ldhood or adolescence 11/05/2005 07/05/2013 Overview (05/22/2015): Problem list name updated by automated process. 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 12/10/2005 Generalized anxiety disorder 05/21/2002 12/10/2005 Encounters Date Type Department Care Team Description 11/15/2024 2:00 PM CDT Office Visit [facility] [place] [address] [facility] [address] [place] [address] Angely Stevens PA-C Insertional Achilles tendinopathy (Primary Dx) 11/15/2024 Travel from Last 3 Months Immunizations Name Administration Dates Next Due COVID-19 MONOVALENT 12+ (Pfizer) 09/25/2021,070 12/2020,02/02/2021 DTAP (<7y) 03/14/1997 HEPA 04/10/2013 HPV [...] Help Needed Not on file 05/23 Comments Yes Sex and Gender Information Value Date Recorded Sex Assigned at Not on file Legal Sex Female 4:15 AM BLAST FURNACE SUPERVISOR Gender Identity Not on file Sexual Orientation Not on file Last Filed Vital Signs Vital Sign Reading Time Taken Comments Blood Pressure 121/73 11/15/2024 3:26 PM CDT Pulse 71 11/15/2024 3:26 PM CDT Temperature 36.6 C (97.8 F) 11/15/2024 3:26 PM CDT Respiratory Rate 16 11/15/2024 3:26 PM CDT Oxygen Saturation 99% 11/15/2024 3:26 PM CDT Inhaled Oxygen Concentration - - Weight 137.6 kg (303 lb 6.4 oz) 11/15/2024 3:26 PM CDT Height 172.7 cm (5' 8) 02/19/2023 10:3 9 AM CDT Body Mass Index 46.13 02/19/2023 10:39 AM CDT Plan of Treatment Health Maintenance Due Date Last Done Comments ADVANCE CARE PLANNING 1993 ANNUAL REVIEW OF HM ORDERS 1993 DEPRESSION ACTION PLAN 1993 PHQ-9 01/01/2014 07/04/2013 YEARLY PREVENTIVE VISIT 05/23/2024 05/23/20, 10/23/2021, 04/30/2020 PAP 05/23/2026 05/23/2023, 04/30/2020 DTAP/TDAP/TD IMMUNIZATION (9 - Td or Tdap) 05/17/2033 05/17/2023, 10/14/2020, 04/10/2013, Additional history exists ZOSTER IMMUNIZATION (1 of 2) 2043 HEPATITIS B IMMUNIZATION Completed 995, 01/18/1995, 1993, Additional history exists HPV IMMUNIZATION Completed 10/31/2008, 10/2007, 04/04/2008 MENINGITIS IMMUNIZATION Completed 04/14/2011 HIV SCREENING Completed 10/18/2016 HEPATITIS C SCREENING Completed 04/30/2020, 015 COVID-19 Vaccine Completed 05/30/2024, 06/2023, 09/25/2021, Additional history exists INFLUENZA VACCINE Completed 05/30/2024, , 05/15/2021, Additional history exists Pneumococcal Vaccine: Pediatrics (0 to 5 Years) and At-Risk Patients (6 to 49 Years) Aged Out No longer eligible based on patient's age to complete this topic Insurance [facility] OUT OF STATE Care Teams Editor Index Relationship Specialty Start Date End Date System, Provider Not In PCP - General Clinic 02/19/23 Daisy Beebe PA-C [address] [facility] [address] [place] [address] Assigned PCP 08/25/22 Nilam Beal MD [address] [facility] [address] [place] [address] Cardiovascular Disease 02/21/23
--- OUTSIDE RECORDS SUMMARY | 2024-12-11 18:11 | XMS_ITS | Referral Summary ---
Author Organization [facility] Address [address] [place] [address] Care Team Providers Care Mold Sprayer Name Role Phone Kaitlin Hunter MD Primary Care Provider [phone] Serena Temple MD Unavailable [phone] Allergies Active Allergy Reactions Criticality Noted Date Comments Ibuprofen Swelling, lips/tongue,Rash High 6 Kiwi Hives Medium 10/08/2021 Medications levonorgestreL (MIRENA) 20 mcg/24 hours (6 yrs) 52 mg IU IUD 1 Device by Intrauterine route ONCE. Active Mth-Me Blue-Sod Zgnn-SgUso-Wvv (URIBEL) 118-10-40.8-36 mg oral Cap Take 1 [...] (10/22/2021): Added automatically from request for surgery [id number] JUAN PABLO (obstructive sleep apnea) 10/01/2021 Overview (10/02/2021): AHI 10, desats to 84% HST Rx 5-20 ADAPT Anesthesia complication 12/11/2020 Overview (12/11/2020): wakes up during procedure Anemia 12/11/2020 IUD (intrauterine device) in place 11/14/2020 Overview (11/14/2020): Due for removal 10/2025 Endometriosis determined by laparoscopy 10/21/19 Overview (11/14/2020): Stage 2; Dr. Steret Mild tetrahydrocannabinol (T HC) abuse in sustained [...] Sex Assigned at Female 07/02/2021 11:07 AM PHOTOGRAPHS CURATOR Legal Sex Female 4:50 PM CDT Gender Identity Female 07/02/2021 11:07 AM PHOTOGRAPHS CURATOR Sexual Orientation Bisexual 07/02/2021 11 :07 AM PHOTOGRAPHS CURATOR Last Filed Vital Signs Vital Sign Reading [...] PM CDT) Case Report Pap Smear Case: [id number] Authorizing Provider: Georgina Metzger PA-C Collected: 04/30/2020 06:28 PM Ordering Location: [facility] - Received: 05/01/2020 05:56 PM [facility] First Screen: Sumi Myrick Specimen: Cervical Thin Prep (HPV Reflex) Pit Steward Screen, Cervix 05/05/2020 3:37 PM CDT [facility] Interpretation Negative for intraepithelial lesion or malignant cells. 05/05/2020 3:37 PM CDT [facility] Specimen Adequacy Satisfactory for evaluation. Endocervical/trans formation zone component absent. 05/05/2020 3:37 PM CDT [facility] LMP 04/30/2020 05/05/2020 3:37 PM CDT [facility] Pap Disclaimer This specimen was screened by the Liquidia TechnologiesPrep Imaging System prior to manual review by a cook barbecue and/or pathologist. The Pap test is a [...] 17 (5): S2-S27 05/05/2020 3:37 PM CDT [facility] Vaginal and cervical cytologic material (specimen) CERVIX UTERI STRUCTURE / Unknown 04/30/2020 6:28 PM CDT 05/01/2020 5:56 PM CDT Comment:No LMP recorded. (Va nstrual status: IUD). Georgina Metzger PA-C PATHOLOGY/CYTOLOGY ORDERABLE F inal Result [facility] [address] [place] [address] * HEP C ANTIBODY (04/30/2020 5:54 PM CDT) Hepatitis C Antibody Non-Reacti ve Non-Reacti ve 05/01/2020 1:06 PM CDT [facility] Blood specimen (specimen) VENOUS BLOOD SPECIMEN / Unknown 04/30/2020 5:54 PM CDT 05/01/2020 11:44 AM CDT Georgina Metzger PA-C IMMUNOLOGY ORDERABLE Final Res ult [facility] [address] [place] [id number] from Last 3 Months or Most Recently Relevant to Health Maintenance Care Teams Mold Sprayer Relationship Specialty Start Date End Date Kaitlin Hunter MD [address] [facility] [address] [place] [address] PCP - General Family Medicine 10/23/21 Serena Temple MD [address] [facility] [address] [place] [address] Neurology 10/23/21
--- OUTSIDE RECORDS SUMMARY | 2024-12-11 18:11 | XMS_ITS | Clinical Summary ---
Author Organization [facility] Address [address] [place] [address] Care Team Providers Care Ward Maid Name Role Phone Elsewhere, Pcp Primary Care Provider Unavailabl e Source Comments Patient records contain information from all sites at [facility]. For routine questions regarding patient records, call [phone] during business hours, M-F 8:00 AM - 5:00 PM Central Time. Record requests for emergency care only can be directed to [phone] at any time.[facility] Allergies Active Allergy Reactions Criticality Noted [...] your living situation today? I have a [facility] place to live 07/27/2023 Comments Unknown Sex and Gender Information Value Date Recorded Sex Assigned at Female 07/27/2023 7:49 AM HEAD DOFFER Legal Sex Female 10:27 AM HEAD DOFFER Gender Identity Female 07/27/2023 7:49 AM HEAD DOFFER Sexual Orientation Bisexual 07/27/2023 7: 49 AM HEAD DOFFER Last Filed Vital Signs Vital Sign Reading Time Taken Comments Blood Pressure 116/72 06/01/2024 5:30 PM CDT Pulse 85 06/01/2024 5:30 PM CDT Temperature 36.1 C (97 F) 09/05/2023 1:32 PM HEAD DOFFER Respiratory Rate 28 06/01/2024 5:30 PM CDT [...] Screening 1993 Cervical/Vaginal Cancer Screening 04/30/2023 04/30/2020 Depression Screening (Annual PHQ-2) 08/22/2024 DTaP,Tdap,and Td Vaccines (9 - Td or Tdap) 05/17/2033 05/17/2023, 10/14/2020, 04/10/2013, Additional history exists Hepatitis B Vaccines Completed 01/18/1995, 1993, 1993 IPV Vaccines Completed 04/02/1999, 02/20, 1993, Additional history exists HPV Vaccines Completed 10/31/2008, 10/2007, 04/04/2008 Varicella Vaccines Completed 04/14/2011, 08/27/2002 COVID-19 Vaccine Completed 05/30/2024, 06/2023, 09/25/2021, Additional history exists Influenza Vaccine Completed 05/30/2024, , 05/15/2021, Additional history exists Pneumococcal vaccine (0-49 years) Aged Out No longer eligible based on patient's age to complete this topic Medical Devices Implanted Type Area Conductor Pullman Device Identifier Shelf Expiration Date Model / Serial / Lot Hardware E.G. Pins/Screws/Milo s Hardware e.g. pins/screws/milo s Right: Arm Intrauterine Device Intrauterine Device Uterus Description:Mirena Insurance [facility] [place] [address] Care Teams Ward Maid Relationship Specialty Start Date End Date Elsewhere, Pcp PCP - General Internal Medicine 03/01/24
--- OUTSIDE RECORDS SUMMARY | 2024-12-11 18:12 | XMS_ITS | Encounter Summary ---
Author Organization [facility] Address [facility] [place] [address] Care Team Providers Care Internet Project Manager Name Role Phone Daisy Beebe PA-C Unavailable [phone] System, Provider Not In Primary Care Provider Un available Nilam Beal MD Unavailable Reason for Visit * Reason Comments Urgent Care Pt presents with rig ht ankle pain (unknown cause) X 3 days. Encounter Details Date Type Department Care Team (Late st Contact Info) Description 11/15/2024 2:00 PM CDT Office Visit [facility] [address] [place] [phone] Angely Stevens PA-C [address] [place], [place] [id number] Insertional Achilles tendinopathy (Primary Dx) Social History Tobacco Use Types Packs/Day Years Used Date Smoking Tobacco: Former Cigarettes Q uit: 09/22/2021 Smokeless Tobacco: Never Adolescent Education Answer Date Record ed Getting School Help Needed Not on file 05/23 Comments Yes Sex and Gender Information Value Date Recorded Sex Assigned at Not on file Legal Sex Female 4:15 AM SIGHTER Gender Identity Not on file Sexual Orientation Not on file documented as of this encounter Last Filed Vital Signs Vital Sign Reading Time Taken Comments Blood Pressure 121/73 11/15/2024 3:26 PM CDT Pulse 71 11/15/2024 3:26 PM CDT Temperature 36.6 C (97.8 F) 11/15/2024 3:26 PM CDT Respiratory Rate 16 11/15/2024 3:26 PM CDT Oxygen Saturation 99% 11/15/2024 3:26 PM CDT Inhaled Oxygen Concentration - - Weight 137.6 kg (303 lb 6.4 oz) 11/15/2024 3:26 PM CDT Height - - Body Mass Index 46.13 02/19/2023 10:39 AM CDT documented in this encounter Progress Notes * Angely Stevens PA-C - 11/15/2024 2:00 PM CDT SUBJECTIVE: Kami Estes is a 29 year old female who comes in with 3-day history of pain at the back of herright ankle. Patient denies any known injury but that she felt some clicking sensation a few days ago. Yesterday she did lift to move a couch. She denies any twisting of the ankle rolling or direct injury. States that it feels tender at the very back of the ankle. She has no significant history of a nkle injuries. There is no swelling deformity or bruising that she is aware of. States that it seems to hurt worse when she is walking. Patient is currently around 7 weeks and had an ultrasound today with a viable intrauterine with heartbeat of 133. She was seen in the ER recently for some spotting but had a good ultrasound today. This is not her first . She has no other symptoms at this time. No past medical history on file. Patient Active Problem List Diagnosis Adjustment disorder with mixed anxiety and depressed mood Infection due to 2019 novel coronavirus Anemia Anesthesia complication Anxiety Depression Endometriosis determined by laparoscopy Full-term premature rupture of membranes with onset of labor more than 24 hours following rupture IUD (intrauterine device) in place Mild episode of recurrent major depressive disorder Mild tetrahydrocannabinol (THC) abuse in sustained remission JUAN PABLO (obstructive sleep apnea) Tobacco use disorder PTSD (post-traumatic stress disorder) Current Outpatient Medications Medication Sig Dispense Refill acetaminophen (TYLENOL) 500 MG tablet Take 1,000 mg by mouth. Acetaminophen 325 MG CAPS Take by mouth. albuterol (PROAIR HFA/PROVENTIL HFA/VENTOLIN HFA) 108 (90 Base) MCG/ACT inhaler Inhale 2 puffs intothe lungs every 6 hours as needed for shortness of breath, wheezing or cough 18 g 1 Cholecalciferol 100 MCG (4000 UT) TABS citalopram (CELEXA) 10 MG tablet Take 10 mg by mouth. metoprolol succinate ER (TOPROL XL) 50 MG 24 hr tablet Take 50 mg by mouth daily. No current facility-administered medications for this visit. Social History Socioeconomic History Marital status: Spouse name: Not on file Number of children: Not on file Years of education: Not on file Highest education level: Not on file Occupational History Not on file Tobacco Use Smoking status: Former Current packs/day: 0.00 Types: Cigarettes Quit date: 09/22/2021 Years since quittin.1 Smokeless tobacco: Never Substance and Sexual Activity Alcohol use: Not on file Drug use: Not on file Sexual activity: Not on file Other Topics Concern Not on file Social History Narrative Not on file Social Drivers of Health Financial Resource Strain: Low Risk (10/20/2024) Received from [facility] Financial Resource Strain Difficulty of Paying Living Expenses: 3 Difficulty of Paying Living Expenses: Not on file Food Insecurity: No Food Insecurity (10/20/2024) [facility] Food Insecurity Do you worry your food will run out before you are able to buy more?: 1 Transportation Needs: No Transportation Needs (10/20/2024) Received from [facility] Transportation Needs Does lack of transportation keep you from medical appointments?: 1 Does lack of transportation keep you from work, meetings or getting things that you need?: 1 Physical Activity: Unknown (07/27/2023) Received from [facility] Exercise Vital Sign Days of Exercise per Week: 3 days Minutes of Exercise per Session: Not on file Stress: Not on file Social Connections: Socially Integrated (10/20/2024) [facility] Social Connections Do you often feel lonely or isolated from those around you?: 0 Interpersonal Safety: Not At Risk (12/20/2022) Received from [facility] IP Custom IPV Do you feel UNSAFE in any of your personal relationships with your family members or any other acquaintances?: No Housing Stability: Low Risk (10/20/2024) Received from [facility] Housing Stability What is your housing situation today?: 1 ROS negative other than stated above Exam: GENERAL APPEARANCE: healthy, alert and no distress EYES: EOMI, PERRL MS: Right ankle with no obvious swelling or deformity noted. No bruising is present. Does have focalized tenderness along the insertion of the Achilles tendon. Achilles tendon is fully intact. Able to push down and pull back against resistance. No laxity noted in the joint. SKIN: no suspicious lesions or rashes NEURO: Normal strength and tone, sensory exam grossly normal, mentation intact and speech normal assessment/plan: (M76.60) Insertional Achilles tendinopathy (primary encounter diagnosis) Comment: Plan: Ankle/Foot Bracing Supplies Order Walking Boot; Right; Pneumatic; Short Patient with 3-day history of ankle pain consistent with insertional Achilles tendinitis. There is no direct injury. X-ray was not obtained as she is currently and risk versus benefit not indicated. She is unable to take ibuprofen but will use some Tylenol if needed for pain. Advised ice along with some gentle stretching. Activity as tolerated. Will give her a walking boot for comfort measure. She is aware that she cannot drive with this. Will return to activity as tolerated and follow-up as needed documented in this encounter Plan of Treatment Not on file documented as of this encounter Visit Diagnoses Diagnosis Insertional Achilles tendinopathy- Primary documented in this encounter Care Teams Internet Project Manager Relationship Specialty Start Date End Date System, Provider Not In PCP - General Clinic 02/19/23 Daisy Beebe PA-C [address] [place], [place] [address] Assigned PCP 08/25/22 Nilam Beal MD [address] [facility] [address] [place] [address] Cardiovascular Disease 02/21/23 documented as of this encounter
--- OUTSIDE RECORDS SUMMARY | 2024-12-11 18:12 | XMS_ITS | Clinical Summary ---
Author Organization [facility] Address [address] [place] [address] Care Team Providers Care Finished Cloth Checker Name Role Phone Needs Pcp, Assignment Primary Care Provider [phone] Source Comments You are receiving this document as you are listed as the primary care provider,follow-up provider, or the patient has been referred to you for consultation.This is in compliance with the Medicare and[facility] EHR Incentive Program,which states Providers who transition their patient to another setting of careor provider of care or refers their patient to another provider of care shouldprovide summary care record for each transition of care or referral. 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 Not on file [...] Services) 2009 Adult Preventive Visit 2011 HepA Vaccine (2 of 2 - Risk 2-dose series) 10/11/2013 04/10/2013 DTaP/Tdap/Td Vaccine (7 - Tdap) 04/10/2023 04/10/2013, 08/02/2005, 03/18/1998, Additional history exists COVID-19 Vaccine (1 - 2023- season) 2024 Influenza Vaccine (#1) 2024 06/12/2017, 2016 Zoster/Shingles Vaccine (1 of 2) 2043 HepB Vaccine Completed 01/18/1995, 07/23, 1993 Hib Vaccine Completed 03/18/1998, 04/23, 1993, Additional history exists IPV (Polio) Vaccine Completed 04/02/1999, 03/18/1998, 1993, Additional history exists HPV Vaccine Completed 10/31/2008, 10/2007, 04/04/2008 MCV4 Vaccine Completed 04/14/2011 Meningococcal B Vaccine Aged Out No l onger eligible based on patient's age to complete this topic Pneumococcal Vaccine Aged Out No long er eligible based on patient's age to complete this topic Advance Directives * Full Code (Latest Code Status on File) Date Activated Date Inactivated Comments 06/11/2017 1:20 AM 06/14/2017 2:41 PM * Full Code Date Activated Date Inactivated Comments 06/10/2017 12:17 AM 06/11/2017 1:20 AM Care Teams Finished Cloth Checker Relationship Specialty Start Date End Date Needs Pcp, [place] [address] PCP - General 02/01/18
--- OUTSIDE RECORDS SUMMARY | 2024-12-11 18:12 | XMS_ITS | Encounter Summary ---
Author Organization [facility] Address [address] [place] [address] Care Team Providers Care Heel Lift Gouger Name Role Phone Kaitlin Hunter MD Primary Care Provider [phone] Serena Temple MD Unavailable [phone] Encounter Details Date Type Department Care Team (Latest Contact Info) Description 10/16/2021 Prep For Procedure [facility] [address] [place], [place] [id number] [place] [address] [place] [address] [address] [place], [place] [phone] Syncope, unspecified syncope type (Primary Dx) Social [...] Sex Assigned at Female 07/02/2021 11:07 AM PATIENT SCHEDULING MANAGER Legal Sex Female 4:50 PM CDT Gender Identity Female 07/02/2021 11:07 AM PATIENT SCHEDULING MANAGER Sexual Orientation Bisexual 07/02/2021 11 :07 AM PATIENT SCHEDULING MANAGER COVID-19 Exposure Response Date Recorded In the last month, have you been in contact with someone who was confirmed or suspected to have Coronavirus / COVID-19? No / Unsure 10/19/2021 1:16 PM PATIENT SCHEDULING MANAGER documented as of this encounter Plan of Treatment Not on file documented as of this encounter Visit Diagnoses Diagnosis Syncope, unspecified syncope type- Primary documented in this encounter Additional Health Concerns Infection Onset Date Last Indicated Resolved Time COVID-19 01/27/2022 01/27/2022 02/26/2022 2:49 AM CDT documented as of this encounter Care Teams Heel Lift Gouger Relationship Specialty Start Date End Date Kaitlin Hunter MD [address] [place] [address] PCP - General Family Medicine 10/23/21 Serena Temple MD [address] [place] [address] [place] [address] Neurology 10/23/21 documented as of this encounter
--- OUTSIDE RECORDS SUMMARY | 2024-12-11 18:12 | XMS_ITS | Clinical Summary ---
Author Organization [facility] Address [address] [address] Phone Care Team Providers Care Fishing Vessel Mate Name Role Phone Joanne Ramsey APRN, STORY WRITER Unavailable Luisana Cuevas MD Primary Care Provider [phone] Allergies Active Allergy Reactions Criticality Noted Date [...] PM CDT Legal Sex Female 11:06 PM BLENDING SUPERVISOR Gender Identity Female 11/08/2022 6:00 PM [...] to complete this topic Insurance BLUE PLUS [facility] Advance Directives For more information, please contact: [phone] * Full Code (Latest Code Status on File) Date Activated Date Inactivated Comments 11/08/2022 6:25 PM 11/11/2022 4:46 PM Care Teams Fishing Vessel Mate Relationship Specialty Start Date End Date Luisana Cuevas MD [address] [id number] PCP - General porcelain enameler 03/28/23 Joanne Ramsey, SWIMMING POOL CLEANER, STORY WRITER [address] [place] [phone] Nurse Practitioner Psychiatry 11/15/22
--- OUTSIDE RECORDS SUMMARY | 2024-12-11 18:12 | XMS_ITS | Clinical Summary ---
Author Organization [facility] Address [address] [place] [address] Care Team Providers Care Starch Crab Name Role Phone Светлана Malik Primary Care Provider [phone] Allergies Active Allergy Reactions Criticality Noted Date Comments Codeine-Guaifenesin Anxiety High 11/08/2022 Causes panic attacks Ibuprofen Hives 12/29/2014 Kiwi Anaphylaxis,Hives High 10/08/2021 Kiwi (Actinidia Chinensis) Anaphylaxis High 11/08/2022 Levofloxacin Psychosis 10/20/2022 Pineapple Anaphylaxis High 11/08/2022 Medications acetaminophen (TYLENOL EXTRA STRGTH) 500 mg tablet Take 1,000 mg by mouth. Active OLANzapine (ZYPREXA) 5 mg tablet Take 5 mg by mouth 2 times daily if needed for Agitation. 4 Active clonazePAM (KLONOPIN) 0.5 mg tabletIndications: Panic disorder without agoraphobia Take 1 Tablet (0.5 mg) by mouth 2 times daily if needed for Anxiety (Panic attacks). 15 Tablet 4 Active lamoTRIgine 100 mg tabletIndications: Bipolar affective disorder, remission status unspecified (HC) Take 1 Tablet (100 mg) by mouth once daily. 30 Tablet 3 4 Active metoprolol succinate (TOPROL XL) 50 mg sustained-release tabletIndications: Palpitations,Sinus tachycardia Take 1 Tablet (50 mg) by mouth once daily. 90 Tablet 1 4 Active ondansetron (ZOFRAN ODT) 4 mg disintegrating tabletIndications: Abdominal pain, unspecified abdominal location,Calculus of gallbladder without cholecystitis without obstruction Place 1 Tablet (4 mg) on the tongue every 8 hours if needed for Nausea/Vomiti ng. 20 Tablet 4 Active citalopram (CELEXA) 10 mg tablet Take 10 mg by mouth once daily. 4 Active labetaloL 100 mg tabletIndications: Sinus tachycardia,Palpit ations Take 0.5 Tablets (50 mg) by mouth two times daily. 30 Tablet 1 5 Active ketoconazole 2 % creamIndications:T inea pedis of left foot Apply topically to affected area(s) two times daily. Use twice a day for 4 weeks. 30 g 1 5 Active Active Problems Problem Noted Date Diagnosed Date Bipolar affective disorder, remission status uns pecified 09/05/2024 [facility], Encounter for preconception consultation Overview (08/07/2024): Kami R Sheets : 1995 [facility] PRECONCEPTION CONSULTATION ON REFERRING PHYSICIAN/CLINIC LOCATION/FAX #/LAST UPDATE: Starch Crab Role and Specialty Contact Info Address Start End Comments Светлана Malik, General (Family Practice) [address] [facility] [address] 05/24/2023 - - Primary MD approves scheduling of recommended ultrasounds/testing: Yes REASON FOR CONSULT: currently on zepbound, would like within a year , BMI 44 , Hx of cerebral aneurysm 06/2023- follows at [facility] Care Everywhere TODAY'S APPOINTMENT: MD Consultation PRIMARY DIAGNOSIS: 29 y.o. 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) -Obese BMI is 42 with HgbA1c is normal (5.0) on 10/19/16 (7wks) LAST PAP SMEAR: 05/2016 Tobacco abuse 06/18/2015 05/23/2023 Tobacco use disorder 06/18/2015 023 Encounters Date Type Department Care Team Description 12/06/2024 9:35 AM CDT Office Visit [facility] [address] [place] [address] Светлана Malik, DO Medication Management (metoprolol) 12/06/2024 Travel 12/02/2024 1:39 PM CDT - 12/02/2024 3:35 PM CDT Emergency [facility] [place] [address] [address] Brie Martinez PA Abdominal cramping (Primary Dx); with history of miscarriage, first trimester (HC) Discharge Disposition: Home Self Care 11/15/2024 8:21 AM CDT - 11/15/2024 11:59 PM CDT Hospital Encounter [facility] [address] [place] [address] Светлана Malik, Positive test (HC) 11/15/2024 Travel 11/05/2024 1:00 PM CDT Orders Only [facility] [address] [place] [address] Lab 11/05/2024 Travel 11/02/2024 3:00 PM CDT Orders Only [facility] [address] [place] [address] Lab, [facility] Lab 11/01/2024 1:45 PM CDT Ancillary Procedure [facility] [address] [facility] [address] [place] [address] 11/01/2024 10:50 AM CDT Office Visit [facility] [address] [place] [address] Светлана Malik, DO Confirmation (lmp 09/23/24, positive home test about 2 weeks ago. Is having left sided cramping that is mildly concerning. ) 11/01/2024 Travel 10/20/2024 11:40 AM PHYSICIAN INTERNIST Office Visit [facility] [place] [address] [place] [phone] Marcio Ashton PA Abdominal Pain 10/20/2024 Travel from Last 3 Months Immunizations Immunization [...] 08/02/2005 Td Adult, Adsorbed, Pf, Lf Unspecified Td, Preservative Free (age >= 7 Years) [...] cancer Paternal Grandmother ADD / ADHD Son Nathan Autism Son Nathan Relation Name Status Comments Father Alive Maternal [...] example, heat, electricity, water, phone)? 1 10/20/2024 Estimated Date of Delivery Comme nts Yes 06/30/2025 Sex and Gender Information Value Date Recorded Sex Assigned at Not on file Legal Sex Female 7:12 AM PHYSICIAN INTERNIST Gender Identity Not on file Sexual Orientation Not on file Occupation Industry Job Start Date Job End Date works in [employer] Not on file Not on file Not on file Obstetrics History Para Term AB IAB SAB Ectopic Multiple Livin g Live Births 5 1 1 0 3 0 2 0 1 1 Date Outcome GA Total Labor Labor/2nd/3rd Weight Sex Type Anes PTL Anum A1 A5 Name Clin 4 SAB ELECTI VE AB 2015 AB 7 SAB 7w0 d SPONTA NEOUS 2016 Term 40w 6d 0h 01m 0h 01m 3.01 kg (6 lb 10 oz) M CS-LTr anv N Livin g 3 6 SHEETS ,BABYB OY ABIGAI L Diana Bonilla MD Complications: Intolera nce,Dysfunctional Labor Delivery [facility] Current Summary Episode Dates Number of Fetuses Estimated Date of Delivery 12/06/2024 - Present (12/11/2024) 06/30/2025 (set by Soniya Kennedy, RN on 12/06/2024 based on Alternate JENY Entry) Dating Summary Based On JEYN GA Diff Last Menstrual Period on 09/23/2024 (Exact Date) 06/30/2025 Same Alternate JENY Entry 06/30/2025 Working Notes Progress Notes - Office Visi t - 12/06/2024 - GA:10w4d 12/06/2024 - 10w4d - Светлана Malik DO Images from the original note were not included. Nursing Notes: Yenifer Keith MA 12/06/2024 10:05 AM Signed Chief Complaint Patient presents with Medication Management metoprolol Additional visit information (chief complaint/health maintenance) shared by patient: There are no preventive care reminders to display for this patient. Health maintenance reviewed with patient No Patient presents for an in-person office visit: alone Communication Method: Patient is active on Prezi and has been instructed that results/communications will be made via Prezi If a phone call is needed, the preferred number is: Mobile May we leave a detailed message at this number? Yes BP 115/76 (Cuff Site: Right Arm, Position: Sitting, Cuff Size: Adult Large) Pulse 89 Wt (!) 139.3 kg (307 lb) LMP 09/23/2024 (Exact Date) BMI 45.34 kg/m [facility], 12/06/2024, 9:47 AM HPI: History of Present Illness The patient is a 29-year-old female who presents today to discuss medication management of sinus tachycardia and palpitations. She is currently 10 weeks , with an estimated due date of 06/30/2025. She has been advised to consider transitioning from metoprolol to an alternative medication. She has not yet taken her daily dose of metoprolol today and expresses a desire to postpone the medication switch until after the weekend due to upcoming personal events. She was informed that the potential for hypoglycemia and intrauterine growth restriction increases later in with continued metoprolol use in per visit with her OB provider, although it was acknowledged that there is limited research on this topic. She has been monitoring her heart rate using a smartwatch and reports no palpitations in the past 6 months, with the exception of 1 or 2 recent episodes. She recalls that when she initially started metoprolol, her heart rate was consistently in the 130s and was significantly influenced by her posture. She has been experiencing symptoms of athlete's foot for at least 2 to 3 months. The affected skin is peeling, itchy, and flaky, but she reports no burning sensation. She has attempted treatment with an OTC powder and a cream, but these have not resulted in improvement. She typically wears sandals during this season and did not experience these symptoms last year when wearing sandals. Current Outpatient Medications Medication Sig Dispense Refill acetaminophen (TYLENOL EXTRA STRGTH) 500 mg tablet Take 1,000 mg by mouth. citalopram (CELEXA) 10 mg tablet Take 10 mg by mouth once daily. clonazePAM (KLONOPIN) 0.5 mg tablet Take 1 Tablet (0.5 mg) by mouth 2 times daily if needed for Anxiety (Panic attacks). 15 Tablet 0 ketoconazole 2 % cream Apply topically to affected area(s) two times daily. Use twice a day for 4 weeks. 30 g 1 labetaloL 100 mg tablet Take 0.5 Tablets (50 mg) by mouth two times daily. 30 Tablet 1 lamoTRIgine 100 mg tablet Take 1 Tablet (100 mg) by mouth once daily. 30 Tablet 3 metoprolol succinate (TOPROL XL) 50 mg sustained-release tablet Take 1 Tablet (50 mg) by mouth once daily. 90 Tablet 1 OLANzapine (ZYPREXA) 5 mg tablet Take 5 mg by mouth 2 times daily if needed for Agitation. ondansetron (ZOFRAN ODT) [address] 1 Tablet (4 mg) on the tongue every 8 hours if needed for Nausea/Vomiting. 20 Tablet 0 No current facility-administered medications for this visit. Medications have been reviewed by me and are current to the best of my knowledge and ability. Vitals: 12/06/24 0950 BP: 115/76 Cuff Site: Right Arm Position: Sitting Cuff Size: Adult Large Pulse: 89 Weight: (!) 139.3 kg (307 lb) EXAM: Gen: alert, pleasant, NAD Head: Normocephalic/atraumatic Lungs: breathing comfortably on room air CV: regular pulse rate and rhythm Neuro: A & O x 3, moves all extremities, no focal deficits Skin: flaky skin on plantar surface of L foot with some skin breakdown noted (see photo) ICD-10-CM 1. Sinus tachycardia R00.0 labetaloL 100 mg tablet 2. Palpitations R00.2 labetaloL 100 mg tablet 3. Tinea pedis of left foot B35.3 ketoconazole 2 % cream 4. First trimester (HC) Z34.91 Assessment & Plan 1. Sinus tachycardia and palpitations. 2. - History of tachycardia and palpitations, currently managed with metoprolol. - Discussed risks of beta blockers during , including low heart rate and hypoglycemia. - Recommended transition to labetalol due to its common use in . - Plan to taper off metoprolol by taking half a tablet (25 mg) daily for the next 5 days, then start labetalol at a dose of 50 mg (half a tablet) twice daily. Monitor heart rate and palpitations, with potential dosage increase if heart rate consistently exceeds 100 bpm. Referral to cardio-obstetrics program at [place] could be considered if adequate control is not achieved. - anticipate that HR will increase physiologically with changes 3. 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 - Symptoms include itchy, flaky skin on the bottom of the foot, suggesting tinea pedis - Previous treatments with [id number] antifungal spray and cream were ineffective. - will trial topical ketoconazole 2% BID x 4 weeks. If symptoms fail to improve, encouraged follow up. 31 minutes spent in chart review, [id number] with patient, and documentation on day of encounter. Patient Instructions Taper off metoprolol - 25 mg (half-tablet) daily for the next 5 days, then start labetolol 50 mg (half-tablet) twice a day. Monitor for palpitations, pay attention to heart rate (ie if you notice it increasing) Start ketoconazole cream for suspected athlete's foot on left. Use twice a day for 4 weeks. If symptoms don't improve, please let me know. Светлана Malik DO .................... 12/06/2024 1:27 PM Last Filed Vital Signs Vital Sign Reading Time Taken Comments Blood Pressure 115/76 12/06/2024 9:50 AM CDT Pulse 89 12/06/2024 9:50 AM CDT Temperature 36.3 C (97.3 F) 12/02/2024 1:54 PM CDT Respiratory Rate 16 12/02/2024 1:54 PM CDT Oxygen Saturation 98% 12/02/2024 1:54 PM CDT Inhaled Oxygen Concentration - - Weight 139.3 kg (307 lb) 12/06/2024 9:50 AM CDT Height 175.3 cm (5' 9) 12/02/2024 1:54 PM CDT Body Mass Index 45.34 12/02/2024 1:54 PM CDT Plan of Treatment Health Maintenance Due Date Last Done Comments BMI (ht and wt on same day) for age 18+ 03/29/2025 03/29/2024, 01/13/2024, 05/23/2023, Additional history exists Depression screening for age 12+ 05/03/2025 05/03/2024, 04/30/2024, 05/23/2023, Additional history exists RSV vaccine for adults or (1 - Risk 1-dose series) 05/05/2025 Pap test for age 21-65 05/23/2028 , 05/23/2023, 06/18/2015, Additional history exists Tetanus booster 05/17/2033 05/17/2023, 09/23, 04/10/2013, Additional history exists Hepatitis C screening for age 18-79 Completed 06/16/2015 HIV for age 15-65 Completed 10/18/2016, 06/16/2015 Tdap Completed 05/17/2023, 03/23, 04/10/2013 ([facility] COVID-19 vaccine series Completed 05/30/20, 06/01/2023, 09/25/2021, Additional history exists Influenza Vaccine Completed 05/30/2024, , 05/15/2021, Additional history exists Pneumococcal series for age 6-49 Aged Out No longer eligible based on patient's age to complete this topic Procedures Procedure Name Priority Date/Time Associated Diagnosis Comments US OB 1ST TRI SINGLE TA AND TV STAT 12/02/2024 3:02 PM CDT HCG BETA QUANT, EPPA STAT 12/02/2024 1:52 PM CDT US OB 1ST TRI SINGLE TA AND TV Routine 11/15/2024 9:02 AM CDT Positive test (HC) HCG BETA QUANT, Routine 11/05/2024 1:22 PM CDT Missed period Positive test (HC) of unknown anatomic location (HC) HCG BETA QUANT, Routine 11/02/2024 3:04 PM CDT of unknown anatomic location (HC) US OB ANY TRI TV FILIBERTO 11/01/2024 2:19 PM CDT Positive test (HC) URINE POCT Routine 11/01/2024 11:24 AM CDT Missed period NC BLOOD COUNT COMPLETE AUTO&AUTO DIFRNTL WBC Routine 10/20/2024 1:26 PM PHYSICIAN INTERNIST Possible ISTAT CHEM 8 Routine 10/20/2024 1:26 PM PHYSICIAN INTERNIST Possible URINE POCT Routine 10/20/2024 12:56 PM PHYSICIAN INTERNIST Possible UA W/ SEDIMENT EXAM REFLEXED PER CRITERIA STAT 10/20/2024 12:56 PM PHYSICIAN INTERNIST Possible HPV HIGH RISK Routine 05/23/2023 5:02 PM CDT Screening for malignant neoplasm of cervix ANTI HIV 1/2 Routine 10/18/2016 2:13 PM PHYSICIAN INTERNIST Encounter for supervision of normal first in first trimester (HC) ANTI HCV Routine 06/16/2015 10:49 AM CDT Screening for STD (sexually transmitted disease) from Last 3 Months or Most Recently Relevant to Health Maintenance Results * US OB 1ST TRI SINGLE TA AND TV (12/02/2024 3:02 PM CDT) Only the most recent of2 resultswithin the time period is included. Anatomical Region Laterality Modality Ultrasound 12/02/2024 3:02 PM CDT Impressions 12/02/2024 3:18 PM CDT 1. Single intrauterine gestation with cardiac activity, with gestational age of 9 weeks 4 days and EDC of 07/03/2025. Narrative 12/02/2024 3:18 PM CDT For Patients: As a result of the Cures Act, medical imaging exams and procedure reports are released immediately into your electronic medical record. You may view this report before your referring provider. If you have questions, please contact your health care provider. EXAM: US OB 1ST TRI SINGLE TA AND TV LOCATION: [facility] DATE: 12/02/2024 INDICATION: Cramping, history of miscarriage. COMPARISON: Ultrasound 11/15/2024 TECHNIQUE: Transabdominal scans were performed. FINDINGS: UTERUS: Single normal appearing intrauterine gestation sac. CRL: Measures 2.8 cm, equals 9 weeks 4 days. RATE OF CARDIAC ACTIVITY: 167 bpm. AMNIOTIC FLUID: Normal. PLACENTA: Not yet formed. No evidence for sub-chorionic hemorrhage. RIGHT OVARY: Normal. LEFT OVARY: Normal. Procedure Note Ephraim Stewart MD - 12/02/2024 For Patients: As a result of the 21st Century Cures Act, medical imagingexams and procedure reports are released immediately into your electronicmedical record. You may view this report before your referring provider.If you have questions, please contact your health care provider. EXAM: US OB 1ST TRI SINGLE TA AND TV LOCATION: [facility] [place] DATE: 12/02/2024 INDICATION: Cramping, history of miscarriage. COMPARISON: Ultrasound 11/15/2024 TECHNIQUE: Transabdominal scans were performed. FINDINGS: UTERUS: Single normal appearing intrauterine gestation sac. CRL: Measures 2.8 cm, equals 9 weeks 4 days. RATE OF CARDIAC ACTIVITY: 167 bpm. AMNIOTIC FLUID: Normal. PLACENTA: Not yet formed. No evidence for sub-chorionic hemorrhage. RIGHT OVARY: Normal. LEFT OVARY: Normal. IMPRESSION: 1. Single intrauterine gestation with cardiac activity, with gestationalage of 9 weeks 4 days and EDC of 07/03/2025. [facility] * (ABNORMAL) HCG BETA QUANT, EPPA (12/02/2024 1:52 PM CDT) HCG BETA QUANT,PREGNANC Y 53,430(H) Non : <5 mIU/mL 12/02/2024 3:13 PM CDT [facility] Blood BLOOD SPECIMEN / Unknown Non-Lab Venipuncture / Unknown 12/02/2024 1:52 PM CDT 12/02/2024 2:05 PM CDT Narrative [facility] - 12/02/2024 3:13 PM CDT Expected Value for Healthy Non- premenopausal women <5mIU/mL FOR GESTATIONAL ASSESSMENT-See Range Table Below Weeks Post LMP Approximate HCG Range: (Last Menstrual Period) 3-4 Weeks (9-130) 4-5 Weeks (75-2600) 5-6 Weeks (850-19961) 6-7 Weeks (4000-259839) 7-12 Weeks (93738-031971) 12-16 Weeks (39080-009368) 16-29 Weeks (1400-62841) 29-41 Weeks (940-11185) Expected Value for Healthy Non- premenopausal women <5mIU/mL FOR GESTATIONAL ASSESSMENT-See Range Table Below Weeks Post LMP Approximate HCG Range: (Last Menstrual Period) 3-4 Weeks (9-130) 4-5 Weeks (75-2600) 5-6 Weeks (850-11358) 6-7 Weeks (4000-540414) 7-12 Weeks (23565-038517) 12-16 Weeks (06642-840194) 16-29 Weeks (1400-01961) 29-41 Weeks (940-58518) us Sedrick Lebron MD CHEMISTRY Final Result [facility] [address] [place] [address] * STAT hCG Beta Quant, Serum (11/05/2024 1:22 PM CDT) Only the most recent of2 resultswithin the time period is included. HCG BETA QUANT,PREGNANC Y 2,140 mIU/mL 11/05/2024 11:21 PM CDT [facility] Blood BLOOD SPECIMEN / Unknown [facility] / Unknown 11/05/2024 1:22 PM CDT 11/05/2024 1:23 PM CDT Narrative [facility] - 11/05/2024 11:21 PM CDT Expected [...] at least one week prior to retesting. Erasmo Lanier MD CHEMISTRY Final R esult [facility] [address] [place] [address], [place] * US OB ANY TRI TV [...] of2 resultswithin the time period is included. POC HCG URINE POSITIVE(A ) NEGATIVE [facility] Urine URINE SPECIMEN / Unknown 11/01/2024 11:24 AM CDT 11/01/2024 11:24 AM CDT Светлана Breann Malik DO URINE Final Resu lt [facility] [address] [place] [address], [facility] [address] [place] [address] * (ABNORMAL) ISTAT CHEM 8 BMP (10/20/2024 1:26 PM PHYSICIAN INTERNIST) POCT, SODIUM, ISTAT 139 138 - 146 mmol/L [facility] (U POCT, POTASSIUM, ISTAT 4.3 3.5 - 4.9 mmol/L [facility] (U POCT, CHLORIDE, ISTAT 104 98 - 109 mmol/L [facility] (U POCT, CARBON DIOXIDE, ISTAT 23(L) 24 - 29 mmol/L [facility] (U POCT, GLUCOSE ISTAT 81 70 - 105 mg/dL [facility] (U POCT, UREA NITROGEN (BUN) ISTAT 8 8 - 26 mg/dL [facility] (U POCT,CREATININE , ISTAT 0.8 0.6 - 1.3 mg/dL [facility] (U POCT, CALCIUM, IONIZED, ISTAT 4.7 4.5 - 5.3 mg/dL [facility] (U Blood BLOOD SPECIMEN / Unknown 10/20/2024 1:26 PM PHYSICIAN INTERNIST 10/20/2024 1:27 PM PHYSICIAN INTERNIST us Marcio CROWELL CHEMISTRY Final R esult [facility] [address] [place] [address], [facility] (U [address] [place] [address] * (ABNORMAL) CBC AND DIFFERENTIAL (10/20/2024 1:26 PM PHYSICIAN INTERNIST) WHITE BLOOD CELL COUNT 9.3 3.8 - 10.8 Thousand/u L [facility] (U RED BLOOD CELL COUNT 4.73 3.80 - 5.10 Million/uL [facility] (U HEMOGLOBIN 11.5(L) 11.7 - 15.5 g/dL [facility] (U HEMATOCRIT 37.5 35.0 - 45.0 % [facility] ([facility] MCV 79.3(L) 80.0 - 100.0 fL [facility] ([facility] MCH 24.3(L) 27.0 - 33.0 pg [facility] ([facility] MCHC 30.7(L) 32.0 - 36.0 g/dL [facility] (U Comment: For adults, a slight decrease in the calculated MCHC value (in the range of 30 to 32 g/dL) is most likely not clinically significant; however, it should be interpreted with caution in correlation with other red cell parameters and the patient's clinical condition. RDW 14.9 11.0 - 15.0 % [facility] (U PLATELET COUNT 389 140 - 400 Thousand/u L [facility] ([facility] MPV 9.3 7.5 - 12.5 fL [facility] ([facility] ABSOLUTE NEUTROPHILS 5,031 1,500 - 7,800 cells/uL [facility] ([facility] ABSOLUTE LYMPHOCYTES 3,450 850 - 3,900 cells/uL [facility] ([facility] ABSOLUTE MONOCYTES 558 200 - 950 cells/uL [facility] ([facility] ABSOLUTE EOSINOPHILS 223 15 - 500 cells/uL [facility] ([facility] ABSOLUTE BASOPHILS 37 0 - 200 cells/uL [facility] ([facility] NEUTROPHILS 54.1 % [facility] ([facility] LYMPHOCYTES 37.1 % [facility] ([facility] MONOCYTES 6.0 % [facility] ([facility] EOSINOPHILS 2.4 % [facility] ([facility] BASOPHILS 0.4 % [facility] (U Blood BLOOD SPECIMEN / Unknown 10/20/2024 1:26 PM PHYSICIAN INTERNIST 10/20/2024 1:27 PM PHYSICIAN INTERNIST us Marcio CROWELL HEMATOLOGY Final R esult [facility] [address] [place] [address], [facility] (U [address] [place] [address] * (ABNORMAL) UA W/ SEDIMENT EXAM REFLEXED PER CRITERIA [20977.2] (10/20/2024 12:56 PM PHYSICIAN INTERNIST) COLOR YELLOW YELLOW [facility] ([facility] APPEARANCE CLEAR CLEAR [facility] ([facility] SPECIFIC GRAVITY 1.015 1.001 - 1.035 [facility] ([facility] PH 5.5 5.0 - 8.0 [facility] ([facility] GLUCOSE NEGATIVE NEGATIVE [facility] ([facility] BILIRUBIN NEGATIVE NEGATIVE [facility] ([facility] KETONES NEGATIVE NEGATIVE [facility] ([facility] OCCULT BLOOD TRACE(A) NEGATIVE [facility] ([facility] PROTEIN NEGATIVE NEGATIVE [facility] ([facility] NITRITE NEGATIVE NEGATIVE [facility] LEUKOCYTE ESTERASE NEGATIVE NEGATIVE [facility] ([facility] WBC UA NONE SEEN < OR = 5 /HPF [facility] ([facility] RBC UA 0-2 < OR = 2 /HPF [facility] ([facility] SQUAMOUS EPITHELIAL CELLS UA 0-5 < OR = 5 /HPF [facility] ([facility] BACTERIA UA NONE SEEN NONE SEEN /HPF [facility] ([facility] NOTE UA [facility] ([facility] Comment: This urine was analyzed for the presence of WBC, RBC, bacteria, casts, and other formed elements. Only those elements seen were reported. Urine URINE SPECIMEN / Unknown 10/20/2024 12:56 PM PHYSICIAN INTERNIST 10/20/2024 12:57 PM PHYSICIAN INTERNIST us Marcio CROWELL URINE Final R esult [facility] [address] [place] [address], [facility] ([facility] [address] [place] [address] * HPV HIGH RISK (05/23/2023 5:02 PM CDT) TYPE 16 Negative Negative 05/27/2023 1:16 PM CDT [facility] TYPE 18 Negative Negative 05/27/2023 1:16 PM CDT [facility] OTHER HIGH RISK TYPES Negative Negative 05/27/2023 1:16 PM CDT [facility] Other (Cervical) Non-Blood / Unknown 05/23/2023 5:02 PM CDT 05/24/2023 5:02 PM CDT Narrative [facility] - 05/27/2023 1:16 PM CDT HPV types 16, 18, 31, 33, 35, 39, 45, 51, 52, 56, 58, 59, 66 and 68 DNA were undetectable or below the pre-set threshold. Methodology: Steve Nikki 4800 HPV Test us Светлана Malik DO MICROBIOLOGY Final Resu lt [facility] [address] [place] [address], [place] * ANTI HIV 1/2 (10/18/2016 2:13 PM PHYSICIAN INTERNIST) HIV-1/HIV-2 ANTIBODY Non-Reacti ve Non-Reacti ve 10/18/2016 6:20 PM PHYSICIAN INTERNIST [facility] Blood BLOOD SPECIMEN / Unknown Venipuncture / Unknown 10/18/2016 2:13 PM PHYSICIAN INTERNIST 10/18/2016 2:13 PM PHYSICIAN INTERNIST Narrative [facility] - 10/18/2016 6:20 PM PHYSICIAN INTERNIST HIV-1 p24 and HIV-1/HIV-2 Ab not detected us Senait Curtis FLIGHT NURSE SEND OUTS Final Res ult [facility] [address] [place] [address], [place] * ANTI HCV (06/16/2015 10:49 AM CDT) HEPATITIS C ANTIBODY Non-Reacti ve Non-Reacti ve 06/16/2015 5:48 PM CDT [facility] Blood specimen (specimen) BLOOD SPECIMEN / Unknown Venipuncture / Unknown 06/16/2015 10:49 AM CDT 06/16/2015 10:50 AM CDT Narrative [facility] - 06/16/2015 5:48 PM CDT Antibodies to HCV not detected; does not exclude the possibility of exposure to HCV. Rachel Heavenjim Monet DO SEND OUTS Julianna padron Result [facility] [address] [place] [address], [place] from Last 3 Months or Most Recently Relevant to Health Maintenance Insurance [employer] [place] Care Teams Starch Crab Relationship Specialty Start Date End Date Светлана Malik DO [address] [place] [address] PCP - General Family Practice 05/24/23
--- OUTSIDE RECORDS SUMMARY | 2024-12-11 18:12 | XMS_ITS | Encounter Summary ---
Author Organization [place] Address [facility] [place] [address] Care Team Providers Care Service Center Representative Name Role Phone Daisy Beebe PA-C Unavailable [phone] System, Provider Not In Primary Care Provider Un available Nilam Beal MD Unavailable Encounter Details Date Type Department Care Team (Latest Contact Info) Description 11/15/2024 Travel Social History Tobacco Use Types Packs/Day Years Used Date Smoking Tobacco: Former Cigarettes Q uit: 09/22/2021 Smokeless Tobacco: Never Adolescent Education Answer Date Record ed Getting School Help Needed Not on file 05/23 Comments Yes Sex and Gender Information Value Date Recorded Sex Assigned at Not on file Legal Sex Female 4:15 AM GLASS BELT SANDER Gender Identity Not on file Sexual Orientation Not on file documented as of this encounter Plan of Treatment Not on file documented as of this encounter Visit Diagnoses Not on filedocumented in this encounter Care Teams Service Center Representative Relationship Specialty Start Date End Date System, Provider Not In PCP - General Clinic 02/19/23 Daisy Beebe PA-C [address] [place], [place] [address] Assigned PCP 08/25/22 Nilam Beal MD [address] [facility] [address] [place], [place] [address] Cardiovascular Disease 02/21/23 documented as of this encounter
--- OUTSIDE RECORDS SUMMARY | 2024-12-11 18:12 | XMS_ITS | Encounter Summary ---
Author Organization [facility] Address [address] [place] [address] Care Team Providers Care Installer Helper Name Role Phone Needs Pcp, Assignment Primary Care Provider [phone] Encounter Details Date Type Department Care Team (Late st Contact Info) Description 06/08/2017 Scanned History External to External, [place] [address] [facility] Social History Tobacco Use Types Packs/Day [...] on filedocumented in this encounter Care Teams Installer Helper Relationship Specialty Start Date End Date Needs Pcp, Assignment [place], [place] [address] PCP - General 02/01/18 documented as of this encounter
--- OUTSIDE RECORDS SUMMARY | 2024-12-11 18:12 | XMS_ITS | Encounter Summary ---
Author Organization [facility] Address [address], [place] [address] Care Team Providers Care Hl7 Interface Developer Name Role Phone Needs Pcp, Assignment Primary Care Provider [phone] Encounter Details Date Type Department Care Team [...] on filedocumented in this encounter Care Teams Hl7 Interface Developer Relationship Specialty Start Date End Date Needs Pcp, María [facility] [place], [place] [address] PCP - General 02/01/18 documented as of this encounter
--- OUTSIDE RECORDS SUMMARY | 2024-12-11 18:12 | XMS_ITS | Patient Health Record ---
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
--- OUTSIDE RECORDS SUMMARY | 2024-12-11 18:12 | XMS_ITS | Encounter Summary ---
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
[2024-12-11 18:23] VITALS: BP 122/79; PULSE 120; RESP 18; TEMP 37.1; O2SAT 98; BMI 45.5
--- NOTE | 2024-12-11 18:58 | CRLHL7_ITS ---
For Patients: As a result of the Century Cures Act, medical imaging exams and procedure reports are released immediately into your electronic medical record. You may view this report before your referring provider. If you have questions, please contact your health care provider. INDICATION: Chest pain TECHNIQUE: Chest radiograph 2 views COMPARISON: None FINDINGS: The sensitivity and specificity of the exam are moderately limited by the patient`s body habitus. Mediastinum: The mediastinum is normal in appearance. The heart silhouette is normal in size and morphology. Lung: Both lungs are unremarkable in appearance. No sign of pleural effusion seen. No pneumothorax is identified. Bone and Soft tissue: Unremarkable for age. IMPRESSION: 1. No acute cardiopulmonary disease is seen. Dictated by: Andrew Duvall MD @ 12/11/2024 19:25:25 (Electronically Signed)
--- OUTSIDE RECORDS SUMMARY | 2024-12-11 19:10 | XMS_ITS | Clinical Summary ---
Author Organization [place] Address [address] [place] [address] Care Team Providers Care General Merchandise Salesperson Name Role Phone Daisy Beebe PA-C Unavailable [phone] System, Provider Not In Primary Care Provider [...] sprayIndication s:Infection due to 2019 novel coronavirus [place] 2 sprays into both nostrils daily 18 [...] Description 11/15/2024 2:00 PM CDT Office Visit [facility] [place] [address] [facility] [address] [place] [address] Angely Stevens [...] on file Legal Sex Female 4:15 AM LINER REROLL TENDER Gender Identity Not on file Sexual Orientation [...] patient's age to complete this topic Insurance [facility] OUT [facility] Care Teams General Merchandise Salesperson Relationship Specialty Start Date End Date System, Provider Not In PCP - General Clinic 02/19/23 Daisy Beebe PA-C [address] [facility] [address] [place] [address] Assigned PCP 08/25/22 Nilam Beal MD [address] [facility] [address] [place] [address] Cardiovascular Disease 02/21/23
--- OUTSIDE RECORDS SUMMARY | 2024-12-11 19:10 | XMS_ITS | Encounter Summary ---
Author Organization [facility] Address [address] [place] [address] Care Team Providers Care Receiver Stocker Name Role Phone Needs Pcp, Assignment Primary Care Provider [phone] Encounter Details Date Type Department Care Team (Late st Contact Info) Description 06/08/2017 Scanned History External to External, [place] [address] [facility]- RECORDS Social History Tobacco Use Types Packs/Day [...] on filedocumented in this encounter Care Teams Receiver Stocker Relationship Specialty Start Date End Date Needs Pcp, Assignment [place], [place] [address] PCP - General 02/01/18 documented as of this encounter
--- OUTSIDE RECORDS SUMMARY | 2024-12-11 19:10 | XMS_ITS | Clinical Summary ---
Author Organization [facility] Address [address] [place] [address] Care Team Providers Care Mechanical Drawing Teacher Name Role Phone Kaitlin Hunter MD Primary Care Provider [phone] Serena Temple MD Unavailable [phone] Allergies Active Allergy Reactions Criticality Noted Date Comments Ibuprofen Swelling, lips/tongue,Rash High 6 Kiwi Hives Medium 10/08/2021 Medications levonorgestreL (MIRENA) 20 mcg/24 hours (6 yrs) 52 mg IU IUD 1 Device by Intrauterine route ONCE. Active Mth-Me Blue-Sod Babw-UdIev-Sow (URIBEL) 118-10-40.8-36 mg oral Cap Take 1 [...] (10/22/2021): Added automatically from request for surgery [id number] JUAN PABLO (obstructive sleep apnea) 10/01/2021 Overview [...] Sex Assigned at Female 07/02/2021 11:07 AM FOOD SAFETY TECHNICIAN Legal Sex Female 4:50 PM CDT Gender Identity Female 07/02/2021 11:07 AM FOOD SAFETY TECHNICIAN Sexual Orientation Bisexual 07/02/2021 11 :07 AM FOOD SAFETY TECHNICIAN Last Filed Vital Signs Vital Sign Reading [...] PM CDT) Case Report Pap Smear Case: [id number] Authorizing Provider: Georgina Metzger PA-C Collected: 04/30/2020 06:28 PM Ordering Location: [facility] - Received: 05/01/2020 05:56 PM [facility] First Screen: Sumi Myrick Specimen: Cervical Thin Prep (HPV Reflex) Converter Skimmer Screen, Cervix 05/05/2020 3:37 PM CDT [facility] Interpretation Negative for intraepithelial lesion or malignant cells. 05/05/2020 3:37 PM CDT [facility] Specimen Adequacy Satisfactory for evaluation. Endocervical/trans formation zone component absent. 05/05/2020 3:37 PM CDT [facility] LMP 04/30/2020 05/05/2020 3:37 PM CDT [facility] Pap Disclaimer This specimen was screened by the ThinPrep Imaging System prior to manual review by a rope laying machine operator and/or pathologist. The Pap test is [...] 17 (5): S2-S27 05/05/2020 3:37 PM CDT [facility] Vaginal and cervical cytologic material (specimen) CERVIX UTERI STRUCTURE / Unknown 04/30/2020 6:28 PM CDT 05/01/2020 5:56 PM CDT Comment:No LMP recorded. (Me nstrual status: IUD). Georgina Metzger PA-C PATHOLOGY/CYTOLOGY ORDERABLE F inal Result Performing Organization Address City/[facility]/ZIP Co de Phone Number [facility] [address] [place] [address] * HEP C ANTIBODY (04/30/2020 5:54 PM CDT) Hepatitis C Antibody Non-Reacti ve Non-Reacti ve 05/01/2020 1:06 PM CDT [facility] Blood specimen (specimen) VENOUS BLOOD SPECIMEN / Unknown 04/30/2020 5:54 PM CDT 05/01/2020 11:44 AM CDT Georgina Metzger PA-C IMMUNOLOGY ORDERABLE Final Res ult Performing Organization Address City/[facility]/ZIP Co de Phone Number [facility] [address] [place], [place] [address] from Last 3 Months or Most Recently Relevant to Health Maintenance Care Teams Mechanical Drawing Teacher Relationship Specialty Start Date End Date Kaitlin Hunter MD [address] [place] [address] PCP - General Family Medicine 10/23/21 Serena Temple MD [address] [place] [address] Neurology 10/23/21
--- OUTSIDE RECORDS SUMMARY | 2024-12-11 19:10 | XMS_ITS | Clinical Summary ---
Author Organization [facility] Address [address] [address] Phone Care Team Providers Care Knotting Machine Operator Name Role Phone Joanne Ramsey APRN, SWEET PICKLED FRUIT MAKER Unavailable Luisana Cuevas MD Primary Care Provider [phone] Allergies Active Allergy Reactions Criticality Noted Date [...] PM CDT Legal Sex Female 11:06 PM PLATE CORRECTOR Gender Identity Female 11/08/2022 6:00 PM CDT [...] complete this topic Insurance BLUE PLUS [facility] Advance Directives For more information, please contact: [phone] * Full Code (Latest Code Status on File) Date Activated Date Inactivated Comments 11/08/2022 6:25 PM 11/11/2022 4:46 PM Care Teams Knotting Machine Operator Relationship Specialty Start Date End Date Luisana Cuevas MD [address] [address] PCP - General architectural design lecturer 03/28/23 Joanne Ramsey, SUPERVISOR SIGN SHOP, SWEET PICKLED FRUIT MAKER [address] [place] [address] Nurse Practitioner Psychiatry 11/15/22
--- OUTSIDE RECORDS SUMMARY | 2024-12-11 19:10 | XMS_ITS | Referral Summary ---
Author Organization [facility] Address [address] [place] [address] Care Team Providers Care Music Ministries Director Name Role Phone Kaitlin Hunter MD Primary Care Provider [phone] Serena Temple MD Unavailable [phone] Allergies Active Allergy Reactions Criticality Noted Date Comments Ibuprofen Swelling, lips/tongue,Rash High 6 Kiwi Hives Medium 10/08/2021 Medications levonorgestreL (MIRENA) 20 mcg/24 hours (6 yrs) 52 mg IU IUD 1 Device by Intrauterine route ONCE. Active Mth-Me Blue-Sod Biaj-LjMth-Mpw (URIBEL) 118-10-40.8-36 mg oral Cap Take 1 [...] (10/22/2021): Added automatically from request for surgery [id number] JUAN PABLO (obstructive sleep apnea) 10/01/2021 Overview [...] Sex Assigned at Female 07/02/2021 11:07 AM SALES FINANCIAL ANALYST Legal Sex Female 4:50 PM CDT Gender Identity Female 07/02/2021 11:07 AM SALES FINANCIAL ANALYST Sexual Orientation Bisexual 07/02/2021 11 :07 AM SALES FINANCIAL ANALYST Last Filed Vital Signs Vital Sign Reading [...] PM CDT) Case Report Pap Smear Case: [id number] Authorizing Provider: Georgina Metzger PA-C Collected: 04/30/2020 06:28 PM Ordering Location: [facility] - Received: 05/01/2020 05:[address] [facility] First Screen: Sumi Myrick Specimen: Cervical Thin Prep (HPV Reflex) Lawn Service Supervisor Screen, Cervix 05/05/2020 3:37 PM CDT [facility] Interpretation Negative for intraepithelial lesion or malignant cells. 05/05/2020 3:37 PM CDT [facility] Specimen Adequacy Satisfactory for evaluation. Endocervical/trans formation zone component absent. 05/05/2020 3:37 PM CDT [facility] LMP 04/30/2020 05/05/2020 3:37 PM CDT [facility] Pap Disclaimer This specimen was screened by the AppPowerGroupPrep Imaging System prior to manual review by a adapted physical education teacher and/or pathologist. The Pap test is a [...] 17 (5): S2-S27 05/05/2020 3:37 PM CDT [facility] Vaginal and cervical cytologic material (specimen) CERVIX UTERI STRUCTURE / Unknown 04/30/2020 6:28 PM CDT 05/01/2020 5:56 PM CDT Comment:No LMP recorded. (Ga nstrual status: IUD). Georgina Metzger PA-C PATHOLOGY/CYTOLOGY ORDERABLE F inal Result [facility] [address] [place] [address] * HEP C ANTIBODY (04/30/2020 5:54 PM CDT) Hepatitis C Antibody Non-Reacti ve Non-Reacti ve 05/01/2020 1:06 PM CDT [facility] Blood specimen (specimen) VENOUS BLOOD SPECIMEN / Unknown 04/30/2020 5:54 PM CDT 05/01/2020 11:44 AM CDT Georgina Metzger PA-C IMMUNOLOGY ORDERABLE Final Res ult [facility] [address] [place] [address] from Last 3 Months or Most Recently Relevant to Health Maintenance Care Teams Music Ministries Director Relationship Specialty Start Date End Date Kaitlin Hunter MD [address] [facility] [address] [place] [address] PCP - General Family Medicine 10/23/21 Serena Temple MD [address] [facility] [address] [place] [address] Neurology 10/23/21
--- OUTSIDE RECORDS SUMMARY | 2024-12-11 19:10 | XMS_ITS | Encounter Summary ---
Author Organization [facility] Address [address] [place] [address] Care Team Providers Care Assistant Pressman Name Role Phone Kaitlin Hunter MD Primary Care Provider [phone] Serena Temple MD Unavailable [phone] Encounter Details Date Type Department Care Team (Latest Contact Info) Description 10/16/2021 Prep For Procedure [facility] [address] [facility] [address] [place], [place] [id number] [place] [address] [place] [address] [address] [place], [place] [id number] Syncope, unspecified syncope type (Primary Dx) Social [...] Sex Assigned at Female 07/02/2021 11:07 AM ADVENTURE EDUCATION TEACHER Legal Sex Female 4:50 PM CDT Gender Identity Female 07/02/2021 11:07 AM ADVENTURE EDUCATION TEACHER Sexual Orientation Bisexual 07/02/2021 11 :07 AM ADVENTURE EDUCATION TEACHER COVID-19 Exposure Response Date Recorded In the last month, have you been in contact with someone who was confirmed or suspected to have Coronavirus / COVID-19? No / Unsure 10/19/2021 1:16 PM ADVENTURE EDUCATION TEACHER documented as of this encounter Plan of Treatment Not on file documented as of this encounter Visit Diagnoses Diagnosis Syncope, unspecified syncope type- Primary documented in this encounter Additional Health Concerns Infection Onset Date Last Indicated Resolved Time COVID-19 01/27/2022 01/27/2022 02/26/2022 2:49 AM CDT documented as of this encounter Care Teams Assistant Pressman Relationship Specialty Start Date End Date Kaitlin Hunter MD [address] [place] [address] PCP - General Family Medicine 10/23/21 Serena Temple MD [address] [place] [address] [place] [address] Neurology 10/23/21 documented as of this encounter
--- OUTSIDE RECORDS SUMMARY | 2024-12-11 19:10 | XMS_ITS | Encounter Summary ---
Author Organization [place] Address [facility] [place] [address] Care Team Providers Care Head Screen Worker Name Role Phone Daisy Beebe PA-C Unavailable [phone] System, Provider Not In Primary Care Provider [...] on file Legal Sex Female 4:15 AM DIGGING MACHINE OPERATOR Gender Identity Not on file Sexual Orientation Not on file documented as of this encounter Plan of Treatment Not on file documented as of this encounter Visit Diagnoses Not on filedocumented in this encounter Care Teams Head Screen Worker Relationship Specialty Start Date End Date System, Provider Not In PCP - General Clinic 02/19/23 Daisy Beebe PA-C [address] [place], [place] [address] Assigned PCP 08/25/22 Nilam Beal MD [address] [facility] [address] [place], [place] [address] Cardiovascular Disease 02/21/23 documented as of this encounter
--- OUTSIDE RECORDS SUMMARY | 2024-12-11 19:10 | XMS_ITS | Clinical Summary ---
Author Organization [facility] [facility] Address [address] [place] [address] Care Team Providers Care Creative/Art Director Name Role Phone Светлана Malik Primary Care Provider [phone]- [phone] Allergies Active Allergy Reactions Criticality Noted Date [...] CONSULTATION ON REFERRING PHYSICIAN/CLINIC LOCATION/FAX #/LAST UPDATE: Creative/Art Director Role and Specialty Contact Info Address Start End Comments Светлана Malik, General (Family Practice) [address] [facility] [address] 05/24/2023 - - Primary MD approves scheduling of recommended ultrasounds/testing: Yes REASON FOR CONSULT: currently on zepbound, would like within a year , BMI 44 , Hx of cerebral aneurysm 06/2023- follows at [facility] - Care Everywhere TODAY'S APPOINTMENT: MD Consultation PRIMARY DIAGNOSIS: 29 y.o. Anxiety, depression 2016 C/S BMI 44 SPECIALISTS/CONSULTS: Dr Naun Lama Neurology at [place] - 03/05/24 Include: Specialty MD Clinic Name [...] imaging from 06/26/2023; following with neurology at [facility] - Visit 03/05/24, stated f/u was only [...] currently taking Effexor and managed by Psychiatrist ([facility]) -Obese BMI is 42 with HgbA1c is normal (5.0) on 10/19/16 (7wks) LAST PAP SMEAR: 05/2016 Tobacco abuse 06/18/2015 05/23/2023 Tobacco use disorder 06/18/2015 023 Encounters Date Type Department Care Team Description 12/06/2024 9:35 AM CDT Office Visit [facility] [address] [place] [address] Светлана Malik, DO Medication Management (metoprolol) 12/06/2024 Travel 12/02/2024 1:39 PM CDT - 12/02/2024 3:35 PM CDT Emergency [facility] [place] [address] [place] [address] Brie Martinez PA Abdominal cramping (Primary Dx); with history of miscarriage, first trimester (HC) Discharge Disposition: Home Self Care 11/15/2024 8:21 AM CDT - 11/15/2024 11:59 PM CDT Hospital Encounter [facility] [address] [place] [address] Светлана Malik, Positive test (HC) 11/15/2024 Travel 11/05/2024 1:00 PM CDT Orders Only [facility] [address] [place] [address] Lab 11/05/2024 Travel 11/02/2024 3:00 PM CDT Orders Only [facility] [address] [place] [address] Lab, [facility] Lab 11/01/2024 1:45 PM CDT Ancillary Procedure [facility] [address] [facility] [address] [place] [address] 11/01/2024 10:50 AM CDT Office Visit [facility] [address] [place] [address] Светлана Malik, DO Confirmation (lmp 09/23/24, positive home test about 2 weeks ago. Is having left sided cramping that is mildly concerning. ) 11/01/2024 Travel 10/20/2024 11:40 AM LABEL DESIGNER Office Visit [facility] [place] [address] [place] [phone] Marcio Ashton PA Abdominal Pain 10/20/2024 Travel [...] on file Legal Sex Female 7:12 AM LABEL DESIGNER Gender Identity Not on file Sexual Orientation Not on file Occupation Industry Job Start Date Job End Date works in [employer] Not on file Not on file Not [...] Alternate JENY Entry) Dating Summary Based On JENY GA Diff Last Menstrual Period on 09/23/2024 (Exact Date) 06/30/2025 Same Alternate JENY Entry 06/30/2025 Working Notes Progress Notes - Office Visi t - 12/06/2024 - GA:10w4d 12/06/2024 - 10w4d - Светлнаа Malik DO Images from the original note [...] alone Communication Method: Patient is active on [employer] and has been instructed that results/communications will be made via [employer] If a phone call is needed, the [...] 100 bpm. Referral to cardio-obstetrics program at [facility] could be considered if adequate control is not achieved. - anticipate that HR will increase physiologically with changes 3. 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 - Symptoms include itchy, flaky skin on the bottom of the foot, suggesting tinea pedis - Previous treatments with rcyo-[id number] antifungal spray and cream were ineffective. - will trial topical ketoconazole 2% BID x 4 weeks. If symptoms fail to improve, encouraged follow up. 31 minutes spent in chart review, xraa-[id number] with patient, and documentation on day of [...] Completed 05/17/2023, 03/23, 04/10/2013 [facility] COVID-19 vaccine series Completed 05/30/20, 06/01/2023, 09/25/2021, [...] Routine 11/01/2024 11:24 AM CDT Missed period DE BLOOD COUNT COMPLETE AUTO&AUTO DIFRNTL WBC Routine 10/20/2024 1:26 PM LABEL DESIGNER Possible ISTAT CHEM 8 Routine 10/20/2024 1:26 PM LABEL DESIGNER Possible URINE POCT Routine 10/20/2024 12:56 PM LABEL DESIGNER Possible UA W/ SEDIMENT EXAM REFLEXED PER CRITERIA STAT 10/20/2024 12:56 PM LABEL DESIGNER Possible HPV HIGH RISK Routine 05/23/2023 5:02 PM CDT Screening for malignant neoplasm of cervix ANTI HIV 1/2 Routine 10/18/2016 2:13 PM LABEL DESIGNER Encounter for supervision of normal first in [...] TA AND TV LOCATION: [facility] [place] DATE: 12/02/2024 INDICATION: Cramping, history of miscarriage. [...] 4 days and [facility] * (ABNORMAL) [...] Weeks (9-130) 4-5 Weeks (75-2600) 5-6 Weeks (850-98800) 6-7 Weeks (4000-962376) 7-12 Weeks (43320-175147) 12-16 Weeks (53059-970525) 16-29 Weeks (1400-57668) 29-41 Weeks (940-49672) Expected Value for Healthy Non- premenopausal women <5mIU/mL FOR GESTATIONAL ASSESSMENT-See Range Table Below Weeks Post LMP Approximate HCG Range: (Last Menstrual Period) 3-4 Weeks (9-130) 4-5 Weeks (75-2600) 5-6 Weeks (850-77653) 6-7 Weeks (4000-489997) 7-12 Weeks (42399-794907) 12-16 Weeks (33584-303393) 16-29 Weeks (1400-15236) 29-41 Weeks (940-22185) us Sedrick Lebron MD CHEMISTRY Final Result [facility] ROOM [facility] [address] [place] [address] * STAT hCG Beta Quant, Serum (11/05/2024 1:22 PM CDT) Only the most recent of2 resultswithin the time period is included. HCG BETA QUANT,PREGNANC Y 2,140 mIU/mL 11/05/2024 11:21 PM CDT [facility] Blood BLOOD SPECIMEN / Unknown [facility] Collect / Unknown 11/05/2024 1:22 PM CDT 11/05/2024 1:23 PM CDT Narrative [facility] - 11/05/2024 11:21 PM CDT [...] Erasmo Lanier MD CHEMISTRY Final R esult [facility] [address] [place] [address], [place] * US OB ANY TRI TV [...] included. POC HCG URINE POSITIVE(A ) NEGATIVE [facility] Urine URINE SPECIMEN / Unknown 11/01/2024 11:24 AM CDT 11/01/2024 11:24 AM CDT Светлана Breann Malik DO URINE Final Resu lt [facility] [address] [place] [address], [facility] [address] [place] [address] * (ABNORMAL) ISTAT CHEM 8 BMP (10/20/2024 1:26 PM LABEL DESIGNER) POCT, SODIUM, ISTAT 139 138 - 146 mmol/L [facility] (U POCT, POTASSIUM, ISTAT 4.3 3.5 - 4.9 mmol/L [facility] (U POCT, CHLORIDE, ISTAT 104 98 - 109 mmol/L [facility] (U POCT, CARBON DIOXIDE, ISTAT 23(L) 24 - 29 mmol/L [facility] (U POCT, GLUCOSE ISTAT 81 70 - 105 mg/dL [facility] (U POCT, UREA NITROGEN (BUN) ISTAT 8 8 - 26 mg/dL [facility] (U POCT,CREATININE , ISTAT 0.8 0.6 - 1.3 mg/dL [facility] (U POCT, CALCIUM, IONIZED, ISTAT 4.7 4.5 - 5.3 mg/dL [facility] (U Blood BLOOD SPECIMEN / Unknown 10/20/2024 1:26 PM LABEL DESIGNER 10/20/2024 1:27 PM LABEL DESIGNER us Marcio CROWELL CHEMISTRY Final R esult [facility] [address] [facility] [place] [address], [facility] ([place] [address] [facility] [place] [address] * (ABNORMAL) CBC AND DIFFERENTIAL (10/20/2024 1:26 PM LABEL DESIGNER) WHITE BLOOD CELL COUNT 9.3 3.8 - 10.8 Thousand/u L [facility] (U RED BLOOD CELL COUNT 4.73 3.80 - 5.10 Million/uL [facility] (U HEMOGLOBIN 11.5(L) 11.7 - 15.5 g/dL [facility] (U HEMATOCRIT 37.5 35.0 - 45.0 % [facility] (U MCV 79.3(L) 80.0 - 100.0 fL [facility] (U MCH 24.3(L) 27.0 - 33.0 pg [facility] (U MCHC 30.7(L) 32.0 - 36.0 g/dL [facility] (U Comment: For adults, a slight decrease in the calculated MCHC value (in the range of 30 to 32 g/dL) is most likely not clinically significant; however, it should be interpreted with caution in correlation with other red cell parameters and the patient's clinical condition. RDW 14.9 11.0 - 15.0 % [facility] (U PLATELET COUNT 389 140 - 400 Thousand/u L [facility] (U MPV 9.3 7.5 - 12.5 fL [facility] (U ABSOLUTE NEUTROPHILS 5,031 1,500 - 7,800 cells/uL [facility] (U ABSOLUTE LYMPHOCYTES 3,450 850 - 3,900 cells/uL [facility] (U ABSOLUTE MONOCYTES 558 200 - 950 cells/uL [facility] (U ABSOLUTE EOSINOPHILS 223 15 - 500 cells/uL [facility] (U ABSOLUTE BASOPHILS 37 0 - 200 cells/uL [facility] (U NEUTROPHILS 54.1 % [facility] (U LYMPHOCYTES 37.1 % [facility] (U MONOCYTES 6.0 % [facility] (U EOSINOPHILS 2.4 % [facility] (U BASOPHILS 0.4 % [facility] (U Blood BLOOD SPECIMEN / Unknown 10/20/2024 1:26 PM LABEL DESIGNER 10/20/2024 1:27 PM LABEL DESIGNER us Marcio CROWELL HEMATOLOGY Final R esult [facility] [address] [place] [address], [facility] ([place] [address] [place] [address] * (ABNORMAL) UA W/ SEDIMENT EXAM REFLEXED PER CRITERIA [89606.2] (10/20/2024 12:56 PM LABEL DESIGNER) COLOR YELLOW YELLOW [facility] (U APPEARANCE CLEAR CLEAR [facility] (U SPECIFIC GRAVITY 1.015 1.001 - 1.035 [facility] (U PH 5.5 5.0 - 8.0 [facility] (U GLUCOSE NEGATIVE NEGATIVE [facility] (U BILIRUBIN NEGATIVE NEGATIVE [facility] (U KETONES NEGATIVE NEGATIVE [facility] (U OCCULT BLOOD TRACE(A) NEGATIVE [facility] (U PROTEIN NEGATIVE NEGATIVE [facility] (U NITRITE NEGATIVE NEGATIVE [facility] (U LEUKOCYTE ESTERASE NEGATIVE NEGATIVE [facility] (U WBC UA NONE SEEN < OR = 5 /HPF [facility] (U RBC UA 0-2 < OR = 2 /HPF [facility] (U SQUAMOUS EPITHELIAL CELLS UA 0-5 < OR = 5 /HPF [facility] (U BACTERIA UA NONE SEEN NONE SEEN /HPF [facility] (U NOTE UA [facility] (U Comment: This urine was analyzed for the presence of WBC, RBC, bacteria, casts, and other formed elements. Only those elements seen were reported. Urine URINE SPECIMEN / Unknown 10/20/2024 12:56 PM LABEL DESIGNER 10/20/2024 12:57 PM LABEL DESIGNER us Marcio CROWELL URINE Final R esult [facility] [address] [place] [address], [facility] (U [address] [place] [address] * HPV HIGH RISK (05/23/2023 5:02 PM CDT) TYPE 16 Negative Negative 05/27/2023 1:16 PM CDT [facility] TYPE 18 Negative Negative 05/27/2023 1:16 PM CDT [facility] OTHER HIGH RISK TYPES Negative Negative 05/27/2023 1:16 PM CDT [facility] Other (Cervical) Non-Blood / Unknown 05/23/2023 5:02 PM CDT 05/24/2023 5:02 PM CDT Narrative [facility] - 05/27/2023 1:16 PM CDT HPV types 16, 18, 31, 33, 35, 39, 45, 51, 52, 56, 58, 59, 66 and 68 DNA were undetectable or below the pre-set threshold. Methodology: Steve Nikki 4800 HPV Test us Светлана Malik DO MICROBIOLOGY Final Resu lt [facility] [address] [place] [address], [place] * ANTI HIV 1/2 (10/18/2016 2:13 PM LABEL DESIGNER) HIV-1/HIV-2 ANTIBODY Non-Reacti ve Non-Reacti ve 10/18/2016 6:20 PM LABEL DESIGNER [facility] Blood BLOOD SPECIMEN / Unknown Venipuncture / Unknown 10/18/2016 2:13 PM LABEL DESIGNER 10/18/2016 2:13 PM LABEL DESIGNER Narrative [facility] - 10/18/2016 6:20 PM LABEL DESIGNER HIV-1 p24 and HIV-1/HIV-2 Ab not detected us Senait Curtis GEOPHYSICAL LABORATORY DIRECTOR SEND OUTS Final Res ult [facility] [address] [place] [address], [place] * ANTI HCV (06/16/2015 10:49 AM CDT) HEPATITIS C ANTIBODY Non-Reacti ve Non-Reacti ve 06/16/2015 5:48 PM CDT [facility] Blood specimen (specimen) BLOOD SPECIMEN / Unknown Venipuncture / Unknown 06/16/2015 10:49 AM CDT 06/16/2015 10:50 AM CDT Narrative [facility] - 06/16/2015 5:48 PM CDT Antibodies to HCV not detected; does not exclude the possibility of exposure to HCV. Rachel Heavenjim Monet DO SEND OUTS Julianna padron Result [facility] [address] [place] [address], [place] from Last 3 Months or Most Recently Relevant to Health Maintenance Insurance [employer] [place] Care Teams Creative/Art Director Relationship Specialty Start Date End Date Светлана Malik DO [address] [place] [address] PCP - General Family Practice 05/24/23
--- OUTSIDE RECORDS SUMMARY | 2024-12-11 19:10 | XMS_ITS | Clinical Summary ---
Author Organization [facility] Address [address] [place] [address] Care Team Providers Care Grinder Operator Name Role Phone Elsewhere, Pcp Primary Care Provider Unavailabl e Source Comments Patient records contain information from all sites at [facility]. For routine questions regarding patient records, call [phone] during business hours, M-F 8:00 AM - 5:00 PM Central Time. Record requests for emergency care only can be directed to [phone] at any time.[facility] Allergies Active Allergy Reactions Criticality [...] your living situation today? I have a [facility] to live 07/27/2023 Comments Unknown Sex and Gender Information Value Date Recorded Sex Assigned at Female 07/27/2023 7:49 AM SOAKER HELPER Legal Sex Female 10:27 AM SOAKER HELPER Gender Identity Female 07/27/2023 7:49 AM SOAKER HELPER Sexual Orientation Bisexual 07/27/2023 7: 49 AM SOAKER HELPER Last Filed Vital Signs Vital Sign Reading Time Taken Comments Blood Pressure 116/72 06/01/2024 5:30 PM CDT Pulse 85 06/01/2024 5:30 PM CDT Temperature 36.1 C (97 F) 09/05/2023 1:32 PM SOAKER HELPER Respiratory Rate 28 06/01/2024 5:30 PM CDT [...] this topic Medical Devices Implanted Type Area Tread Tuber Machine Operator Device Identifier Shelf Expiration Date Model / Serial / Lot Hardware E.G. Pins/Screws/Milo s Hardware e.g. pins/screws/milo s Right: Arm Intrauterine Device Intrauterine Device Uterus Description:Mirena Insurance [facility] [place] [address] Care Teams Grinder Operator Relationship Specialty Start Date End Date Elsewhere, Pcp PCP - General Internal Medicine 03/01/24
--- OUTSIDE RECORDS SUMMARY | 2024-12-11 19:10 | XMS_ITS | Encounter Summary ---
Author Organization [place] Address [facility] [place] [address] Care Team Providers Care Slack Cooper Name Role Phone Daisy Beebe PA-C Unavailable [phone] System, Provider Not In Primary Care Provider Un available Nilam Beal MD Unavailable Reason for Visit * Reason Comments Urgent Care Pt presents with rig ht ankle pain (unknown cause) X 3 days. Encounter Details Date Type Department Care Team (Late st Contact Info) Description 11/15/2024 2:00 PM CDT Office Visit [facility] [address] [place] [phone] Angely [place] PA-C [address] [place], [place] [phone] Insertional Achilles tendinopathy (Primary Dx) Social History Tobacco Use Types Packs/Day Years Used Date Smoking Tobacco: Former Cigarettes Q uit: 09/22/2021 Smokeless Tobacco: Never Adolescent Education Answer Date Record ed Getting School Help Needed Not on file 05/23 Comments Yes Sex and Gender Information Value Date Recorded Sex Assigned at Not on file Legal Sex Female 4:15 AM TOLL MECHANIC Gender Identity Not on file Sexual Orientation [...] Resource Strain: Low Risk (10/20/2024) Received from [email or web address] [facility] Financial Resource Strain Difficulty of Paying Living Expenses: 3 Difficulty of Paying Living Expenses: Not on file Food Insecurity: No Food Insecurity (10/20/2024) [facility] Food Insecurity Do you worry your food will run out before you are able to buy more?: 1 Transportation Needs: No Transportation Needs (10/20/2024) Received from [email or web address] [facility] Transportation Needs Does lack of transportation keep you from medical appointments?: 1 Does lack of transportation keep you from work, meetings or getting things that you need?: 1 Physical Activity: Unknown (07/27/2023) Received from [facility] Exercise Vital Sign Days of Exercise per Week: 3 days Minutes of Exercise per Session: Not on file Stress: Not on file Social Connections: Socially Integrated (10/20/2024) [facility] from [facility] Social Connections Do you often feel lonely or isolated from those around you?: 0 Interpersonal Safety: Not At Risk (12/20/2022) Received from [facility] IP Custom IPV Do you feel UNSAFE in any of your personal relationships with your family members or any other acquaintances?: No Housing Stability: Low Risk (10/20/2024) Received from [employer] [facility] Housing Stability What is your housing situation [...] Primary documented in this encounter Care Teams Slack Cooper Relationship Specialty Start Date End Date System, Provider Not In PCP - General Clinic 02/19/23 Daisy Beebe PA-C [address] [place], [place] [address] Assigned PCP 08/25/22 Nilam Beal MD [address] [facility] [address] [place] [address] Cardiovascular Disease 02/21/23 documented as of this encounter
[2024-12-11 19:11] LABS: Appearance Urine Clear (Clear); Bilirubin Urine Negative (Negative); Blood Urine Trace-lysed (Negative); Color Urine Yellow (Yellow); Glucose Urine Negative (Negative); Ketones Urine Negative (Negative); Leukocyte Esterase Urine Negative (Negative); Nitrite Urine Negative (Negative); Protein Urine Negative (Negative); Specific Gravity Urine <= 1.005 (1.000-1.030); Urobilinogen Urine 0.2 (0.2-1.0)
--- OUTSIDE RECORDS SUMMARY | 2024-12-11 19:11 | XMS_ITS | Clinical Summary ---
Author Organization [facility] Address [address] [place] [address] Care Team Providers Care Card Puncher Name Role Phone Needs Pcp, Assignment Primary Care Provider [phone] Source Comments You are receiving this document as you are listed as the primary care provider,follow-up provider, or the patient has been referred to you for consultation.This is in compliance with the Medicare and[facility] EHR Incentive Program,which states Providers who transition [...] 04/02/1999, 8,1993,1993 Influenza IIV4 (Quadrivalent ) 0.5mL (76579) 06/12/2017 MCV4 (Menactra) 04/14/2011 MMR 03/18/1998,01/18/1995 Td [...] 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
--- OUTSIDE RECORDS SUMMARY | 2024-12-11 19:11 | XMS_ITS | Encounter Summary ---
Author Organization [facility] Address [address], [place] [address] Care Team Providers Care Policy Checker Name Role Phone Needs Pcp, Assignment Primary Care Provider [phone] Encounter Details Date Type Department Care Team [...] on filedocumented in this encounter Care Teams Policy Checker Relationship Specialty Start Date End Date Needs Pcp, [facility] [place] [place] [address] PCP - General 02/01/18 documented as of this encounter
--- OUTSIDE RECORDS SUMMARY | 2024-12-11 19:11 | XMS_ITS | Encounter Summary ---
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
[2024-12-11 19:20] LABS: RBC Urine 0-2 (0-2); WBC Urine 0-2 (0-5)
[2024-12-11 19:22] LABS: Basophils Absolute Auto 0.01 K/uL (0.00-0.30); Basophils Percent Auto 0.2 % (0.0-3.0); Eosinophils Absolute Auto 0.07 K/uL (0.00-0.50); Eosinophils Percent Auto 1.1 % (0.0-7.0); Hematocrit 34.8 % (33.0-51.0); Hemoglobin* 11.2 gm/dL (12.0-16.0); Lymphocytes Percent Auto 7.6 % (20-44); Mean Corpuscular HGB Conc 32 gm/dL (32-36); Mean Corpuscular Hemoglobin 25 pg (26-34); Mean Corpuscular Volume 79 fL (80-100); Monocytes Percent Auto 10.3 % (0.0-11.0); Neutrophils Percent Auto 80.8 % (42.0-72.0); Platelet Count* 270 K/uL (140-440); Red Blood Count 4.43 m/uL (4.00-5.20)
[2024-12-11 19:22] LABS: PCR FLU A Negative PCR FLU A (Negative); PCR FLU B Negative PCR FLU B (Negative); SARS PCR* POSITIVE SARS-CoV-2 (Negative)
[2024-12-11] MEDS: LACTATED RINGERS 1000 ML 1,000 ML IV (19:43)
[2024-12-11 19:52] LABS: Chloride* 103 mmol/L (96-114); Sodium* 132 mmol/L (135-149)
[2024-12-11 19:55] LABS: Anion Gap 7 mEq/L (7-15); Blood Urea Nitrogen* 7 mg/dL (5-24); Carbon Dioxide* 22 mmol/L (20-32); Creatinine* 0.6 mg/dL (0.5-1.5); Est. Creatinine Clearance* 141.98; Estimated Glomerular Filt Rate 123 ml/min
[2024-12-11 19:56] LABS: Calcium* 9.2 mg/dL (8.4-10.6); Glucose* 95 mg/dL (60-115)
[2024-12-11 19:57] LABS: Slide Review Reflex No
== END 2024-12-11 20:24 | disposition home or self-care (01) ==
PROVIDERS: Emergency Provider Student in an Organized Health Care Education/Training Program; PCP Family Medicine
DX: U07.1 COVID-19 (principal); Z3A.11 11 weeks gestation of pregnancy
CPT/HCPCS: 36415; 71046; 80048; 81001; 84484; 85025; 87631; 99284; J7120

== ENCOUNTER 2024-12-12 12:54 | Outpatient (CLI) | payer BC, MEDICAID, SELFPAY ==
--- NOTE | 2024-12-12 13:00 | CRLHL7_ITS ---
For Patients: As a result of the Cures Act, medical imaging exams and procedure reports are released immediately into your electronic medical record. You may view this report before your referring provider. If you have questions, please contact your health care provider. OB ULTRASOUND LESS THAN 14 WEEKS, 12/12/2024 CLINICAL HISTORY: Spotting in 1st trimester. SURGERY: . IMAGING: TV. LMP: 09/23/2024. JENY by LMP: 06/30/2025. GA: 11 weeks 3 days. COMPARISON: 11/01/2024, 11/07/2024, 11/23/2024. CRL: 4.1 cm, 11 weeks 0 days. JENY 07/08/2025. FHR: 168 bpm. GEST SAC: 3.9 cm. YOLK SAC: 4.5 mm. RIGHT OV: Not visualized. LEFT OV: Within normal limits. IMPRESSION: Single living intrauterine measuring 10 weeks 2 days and sonographic due date 07/08/2025. Jah Goldberg M.D. Diagnostic Radiologist [email or web address] Transcribed: 2:25 pm DW/Dictated by: Jah Goldberg MD @ 12/12/2024 2:19:00 PM (Electronically Signed)
== END 2024-12-12 12:55 | disposition home or self-care (01) ==
LOC: US 12:55
PROVIDERS: PCP Family Medicine; Visit Provider Obstetrics & Gynecology
DX: O20.9 Hemorrhage in early pregnancy, unspecified (principal); Z3A.10 10 weeks gestation of pregnancy
CPT/HCPCS: 76817

== ENCOUNTER 2025-01-04 15:10 | Outpatient (CLI) | payer BC, MEDICAID, SELFPAY ==
[2025-01-04 21:40] LABS: Bacterial Vaginosis* Negative (Negative); Candida glab/krus NOT DETECTED (No Detected); Candida species NOT DETECTED (No Detected); Trichomonas vaginalis NOT DETECTED (No Detected)
== END 2025-01-04 15:11 | disposition home or self-care (01) ==
LOC: NFLDREF 15:10
PROVIDERS: PCP Family Medicine; Visit Provider Registered Nurse
DX: N89.8 Other specified noninflammatory disorders of vagina (principal); R82.90 Unspecified abnormal findings in urine
CPT/HCPCS: 81513; 87086; 87481; 87661

== ENCOUNTER 2025-01-10 22:38 | Emergency (ER) | payer BC, MEDICAID, SELFPAY ==
--- OUTSIDE RECORDS SUMMARY | 2025-01-10 22:40 | XMS_ITS | Clinical Summary ---
Author Organization [facility] Address [address] [place] [address] Care Team Providers Care Electric Needle Specialist Name Role Phone Elsewhere, Pcp Primary Care Provider Unavailabl e Source Comments Patient records contain information from all sites at [facility]. For routine questions regarding patient records, call [phone] during business hours, M-F 8:00 AM - 5:00 PM Central Time. Record requests for emergency care only can be directed to [phone] at any time.[facility] Allergies Active Allergy Reactions Criticality Noted Date [...] your living situation today? I have a [facility] place to live 07/27/2023 Comments Unknown Sex and Gender Information Value Date Recorded Sex Assigned at Female 07/27/2023 7:49 AM ANIMAL DAMAGE CONTROL AGENT Legal Sex Female 10:27 AM ANIMAL DAMAGE CONTROL AGENT Gender Identity Female 07/27/2023 7:49 AM ANIMAL DAMAGE CONTROL AGENT Sexual Orientation Bisexual 07/27/2023 7: 49 AM ANIMAL DAMAGE CONTROL AGENT Last Filed Vital Signs Vital Sign Reading Time Taken Comments Blood Pressure 116/72 06/01/2024 5:30 PM CDT Pulse 85 06/01/2024 5:30 PM CDT Temperature 36.1 C (97 F) 09/05/2023 1:32 PM ANIMAL DAMAGE CONTROL AGENT Respiratory Rate 28 06/01/2024 5:30 PM CDT [...] this topic Medical Devices Implanted Type Area Resistor Winder Device Identifier Shelf Expiration Date Model / Serial / Lot Hardware E.G. Pins/Screws/Milo s Hardware e.g. pins/screws/milo s Right: Arm Intrauterine Device Intrauterine Device Uterus Description:Mirena Insurance [facility] [place] [id number] Care Teams Electric Needle Specialist Relationship Specialty Start Date End Date Elsewhere, Pcp PCP - General Internal Medicine 03/01/24
--- OUTSIDE RECORDS SUMMARY | 2025-01-10 22:40 | XMS_ITS | Encounter Summary ---
Author Organization [facility] Address [address] [place] [address] Care Team Providers Care Director Medical Surgical Name Role Phone Kaitlin Hunter MD Primary Care Provider [phone] Seerna Temple MD Unavailable [phone] Encounter Details Date Type Department Care Team (Latest Contact Info) Description 10/16/2021 Prep For Procedure [facility] [place] [address] [facility] [address] [place], [place] [id number] [place] [address] [place] [address] [address] [place], [place] [id number] Syncope, unspecified syncope type (Primary Dx) Social [...] Sex Assigned at Female 07/02/2021 11:07 AM TELEPHONE BETTING CLERK Legal Sex Female 4:50 PM CDT Gender Identity Female 07/02/2021 11:07 AM TELEPHONE BETTING CLERK Sexual Orientation Bisexual 07/02/2021 11 :07 AM TELEPHONE BETTING CLERK COVID-19 Exposure Response Date Recorded In the last month, have you been in contact with someone who was confirmed or suspected to have Coronavirus / COVID-19? No / Unsure 10/19/2021 1:16 PM TELEPHONE BETTING CLERK documented as of this encounter Plan of Treatment Not on file documented as of this encounter Visit Diagnoses Diagnosis Syncope, unspecified syncope type- Primary documented in this encounter Additional Health Concerns Infection Onset Date Last Indicated Resolved Time COVID-19 01/27/2022 01/27/2022 02/26/2022 2:49 AM CDT documented as of this encounter Care Teams Director Medical Surgical Relationship Specialty Start Date End Date Kaitlin Hunter MD [address] [place] [address] PCP - General Family Medicine 10/23/21 Serena Temple MD [address] [place] [address] [place] [address] Neurology 10/23/21 documented as of this encounter
--- OUTSIDE RECORDS SUMMARY | 2025-01-10 22:40 | XMS_ITS | Referral Summary ---
Author Organization [facility] Address [address] [place] [address] Care Team Providers Care Commercial Lawn Specialist Name Role Phone Kaitlin Hunter MD Primary Care Provider [phone] Serena Temple MD Unavailable [phone] Allergies Active Allergy Reactions Criticality Noted Date Comments Ibuprofen Swelling, lips/tongue,Rash High 6 Kiwi Hives Medium 10/08/2021 Medications levonorgestreL (MIRENA) 20 mcg/24 hours (6 yrs) 52 mg IU IUD 1 Device by Intrauterine route ONCE. Active Mth-Me Blue-Sod Zotw-UwJrg-Zqk (URIBEL) 118-10-40.8-36 mg oral Cap Take 1 [...] (10/22/2021): Added automatically from request for surgery [id number] JUAN PABLO (obstructive sleep apnea) 10/01/2021 Overview [...] 08/22/2001 07/28/2020 Overview (07/03/2019): Ativan PRN Immunizations Immunization Administration Dates Next Due DTP 03/14/1997 DTaP [...] Sex Assigned at Female 07/02/2021 11:07 AM CHICKEN CUTTER Legal Sex Female 4:50 PM CDT Gender Identity Female 07/02/2021 11:07 AM CHICKEN CUTTER Sexual Orientation Bisexual 07/02/2021 11 :07 AM CHICKEN CUTTER Last Filed Vital Signs Vital Sign Reading [...] PM CDT) Case Report Pap Smear Case: [id number] Authorizing Provider: Georgina Metzger PA-C Collected: 04/30/2020 06:28 PM Ordering Location: [facility] - Received: 05/01/2020 05:56 PM [facility] First Screen: Sumi Myrick Specimen: Cervical Thin Prep (HPV Reflex) Home Health Specialist Screen, Cervix 05/05/2020 3:37 PM CDT [facility] Interpretation Negative for intraepithelial lesion or malignant cells. 05/05/2020 3:37 PM CDT [facility] Specimen Adequacy Satisfactory for evaluation. Endocervical/trans formation zone component absent. 05/05/2020 3:37 PM CDT [facility] LMP 04/30/2020 05/05/2020 3:37 PM CDT [facility] Pap Disclaimer This specimen was screened by the [employer] System prior to manual review by a locomotive crane engineer and/or pathologist. The Pap test is a [...] 17 (5): S2-S27 05/05/2020 3:37 PM CDT [facility] Vaginal and cervical cytologic material (specimen) CERVIX UTERI STRUCTURE / Unknown 04/30/2020 6:28 PM CDT 05/01/2020 5:56 PM CDT Comment:No LMP recorded. (Nv nstrual status: IUD). Georgina Metzger PA-C PATHOLOGY/CYTOLOGY ORDERABLE F inal Result [facility] [address] [place] [id number] * HEP C ANTIBODY (04/30/2020 5:54 PM CDT) Hepatitis C Antibody Non-Reacti ve Non-Reacti ve 05/01/2020 1:06 PM CDT [facility] Blood specimen (specimen) VENOUS BLOOD SPECIMEN / Unknown 04/30/2020 5:54 PM CDT 05/01/2020 11:44 AM CDT Georgina Metzger PA-C IMMUNOLOGY ORDERABLE Final Res ult [facility] [address] [place] [address] from Last 3 Months or Most Recently Relevant to Health Maintenance Care Teams Commercial Lawn Specialist Relationship Specialty Start Date End Date Kaitlin Hunter MD [address] [facility] [address] [place] [address] PCP - General Family Medicine 10/23/21 Serena Temple MD [address] [facility] [address] [place] [address] Neurology 10/23/21
--- OUTSIDE RECORDS SUMMARY | 2025-01-10 22:40 | XMS_ITS | Clinical Summary ---
Author Organization [facility] Address [address] [place] [address]. [place] [address] Care Team Providers Care Stem Dryer Maintainer Name Role Phone Daisy Beebe PA-C Unavailable [phone] System, Provider Not In Primary Care Provider [...] or cough 18 g 1 3 Active acetaminophen (TYLENOL) 500 MG tablet Take 1,000 mg by mouth. Active Acetaminophen 325 MG CAPS Take by mouth. Act alaina citalopram (CELEXA) 10 MG tablet Take 10 mg by mouth. 4 Active metoprolol succinate ER (TOPROL XL) 50 MG 24 hr tablet Take 50 mg by mouth daily. Active Active Problems Problem Noted Date Diagnosed [...] Description 11/15/2024 2:00 PM CDT Office Visit [facility] [place] [id number] [facility] [address] [place] [address] Angely Stevens PA-C Insertional Achilles tendinopathy (Primary Dx) 11/15/2024 Travel from Last 3 Months Immunizations Immunization Administration Dates Next Due COVID-19 MONOVALENT 12+ [...] on file Legal Sex Female 4:15 AM TECHNICAL SYSTEM ANALYST Gender Identity Not on file Sexual Orientation [...] patient's age to complete this topic Insurance BCBS OUT OF STATE MEDICAID [place] Care Teams Stem Dryer Maintainer Relationship Specialty Start Date End Date System, Provider Not In PCP - General Clinic 02/19/23 Daisy Beebe PA-C [address] [facility] [address] [place] [address] Assigned PCP 08/25/22 Nilam Beal MD [address] [facility] [address] [place], [place] [address] Cardiovascular Disease 02/21/23
--- OUTSIDE RECORDS SUMMARY | 2025-01-10 22:40 | XMS_ITS | Clinical Summary ---
Author Organization [facility] Address [address] [address] Phone Care Team Providers Care Pest Control Service Sales Agent Name Role Phone Joanne Ramsey APRN, PARKING OFFICER Unavailable Luisana Cuevas MD Primary Care Provider [phone] Allergies Active Allergy Reactions Criticality Noted Date [...] PM CDT Legal Sex Female 11:06 PM CORRECTIONS IDENTIFICATION TECHNICIAN Gender Identity Female 11/08/2022 6:00 PM CDT [...] (Standing Order) 2012 TETANUS (Standing Order) 2012 Last pap w/o HPV Testing 05/31/2026 05/31/2023 [...] to complete this topic Insurance BLUE PLUS [facility] Advance Directives For more information, please contact: [phone] * Full Code (Latest Code Status on File) Date Activated Date Inactivated Comments 11/08/2022 6:25 PM 11/11/2022 4:46 PM Care Teams Pest Control Service Sales Agent Relationship Specialty Start Date End Date Luisana Cuevas MD [address] [address] PCP - General returned goods inspector 03/28/23 Joanne Ramsey, REAL ESTATE AGENCY PRINCIPAL, PARKING OFFICER [address] [place] [id number] Nurse Practitioner Psychiatry 11/15/22
--- OUTSIDE RECORDS SUMMARY | 2025-01-10 22:40 | XMS_ITS | Clinical Summary ---
Author Organization [facility] Address [address] [place] [address] Care Team Providers Care Legal Biller Name Role Phone Kaitlin Hunter MD Primary Care Provider [phone] Serena Temple MD Unavailable [phone] Allergies Active Allergy Reactions Criticality Noted Date Comments Ibuprofen Swelling, lips/tongue,Rash High 6 Kiwi Hives Medium 10/08/2021 Medications levonorgestreL (MIRENA) 20 mcg/24 hours (6 yrs) 52 mg IU IUD 1 Device by Intrauterine route ONCE. Active Mth-Me Blue-Sod Mqlj-ViXpq-Rhw (URIBEL) 118-10-40.8-36 mg oral Cap Take 1 [...] (10/22/2021): Added automatically from request for surgery [id number] JUAN PABLO (obstructive sleep apnea) 10/01/2021 Overview [...] Sex Assigned at Female 07/02/2021 11:07 AM HAND GLOVE CLEANER Legal Sex Female 4:50 PM CDT Gender Identity Female 07/02/2021 11:07 AM HAND GLOVE CLEANER Sexual Orientation Bisexual 07/02/2021 11 :07 AM HAND GLOVE CLEANER Last Filed Vital Signs Vital Sign Reading [...] series) 2068 Hepatitis C Screening Completed 04/30/2020 Meningococcal B Vaccine Aged Out No l [...] PM CDT) Case Report Pap Smear Case: [id number] Authorizing Provider: Georgina Metzger PA-C Collected: 04/30/2020 06:28 PM Ordering Location: Located Within [facility] - Received: 05/01/2020 05:56 PM [facility] Screen: Sumi Myrick Specimen: Cervical Thin Prep (HPV Reflex) Sterile Processing Technician Screen, Cervix 05/05/2020 3:[address] [facility] Interpretation Negative for intraepithelial lesion or malignant cells. 05/05/2020 3:[address] [facility] Specimen Adequacy Satisfactory for evaluation. Endocervical/trans formation zone component absent. 05/05/2020 3:[address] [facility] LMP 04/30/2020 05/05/2020 3:37 PM CDT [facility] Pap Disclaimer This specimen was screened by the [facility] Imaging System prior to manual review by a supervisor grove and/or pathologist. The Pap test is a [...] 17 (5): S2-S27 05/05/2020 3:37 PM CDT [facility] Vaginal and cervical cytologic material (specimen) CERVIX UTERI STRUCTURE / Unknown 04/30/2020 6:28 PM CDT 05/01/2020 5:56 PM CDT Comment:No LMP recorded. (Ms nstrual status: IUD). Georgina Metzger PA-C PATHOLOGY/CYTOLOGY ORDERABLE F inal Result Performing Organization Address City/[facility]/ZIP Co de Phone Number [facility] [address] [place] [id number] * HEP C ANTIBODY (04/30/2020 5:54 PM CDT) Hepatitis C Antibody Non-Reacti ve Non-Reacti ve 05/01/2020 1:06 PM CDT [facility] Blood specimen (specimen) VENOUS BLOOD SPECIMEN / Unknown 04/30/2020 5:54 PM CDT 05/01/2020 11:44 AM CDT Georgina Metzger PA-C IMMUNOLOGY ORDERABLE Final Res ult Performing Organization Address City/[facility]/ZIP Co de Phone Number [facility] [address] [place] [id number] from Last 3 Months or Most Recently Relevant to Health Maintenance Care Teams Legal Biller Relationship Specialty [place] [address] [place] [address] [address] [address] PCP - General Family Medicine 10/23/21 Serena Temple MD [address] [place] [address] [facility] 10/23/21
--- OUTSIDE RECORDS SUMMARY | 2025-01-10 22:41 | XMS_ITS | Clinical Summary ---
Author Organization [facility] Address [address] [place] [address] Care Team Providers Care Director Of Casework Department Name Role Phone Needs Pcp, Assignment Primary Care Provider [phone] Source Comments You are receiving this document as you are listed as the primary care provider,follow-up provider, or the patient has been referred to you for consultation.This is in compliance with the Medicare andThe [facility] EHR Incentive Program,which states Providers who transition their patient to another setting of careor provider of care or refers their patient to another provider of care shouldprovide summary care record for each transition of care or referral. 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
--- OUTSIDE RECORDS SUMMARY | 2025-01-10 22:41 | XMS_ITS | Encounter Summary ---
Author Organization [facility] Address [address], [place] [address] Care Team Providers Care Field Clerk Name Role Phone Needs Pcp, Assignment Primary Care Provider [phone] Encounter Details Date Type Department Care Team [...] on filedocumented in this encounter Care Teams Field Clerk Relationship Specialty Start Date End Date Needs Pcp, [facility] [place], [place] [address] PCP - General 02/01/18 documented as of this encounter
--- OUTSIDE RECORDS SUMMARY | 2025-01-10 22:41 | XMS_ITS | Encounter Summary ---
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
--- OUTSIDE RECORDS SUMMARY | 2025-01-10 22:41 | XMS_ITS | Encounter Summary ---
Author Organization [facility] Address [address] [place] [address] Care Team Providers Care Computer Equipment Installer Name Role Phone Needs Pcp, Assignment Primary Care Provider [phone] Encounter Details Date Type Department Care Team (Late st Contact Info) Description 06/08/2017 Scanned History External to External, [place] [address] [facility] Social History Tobacco [...] on filedocumented in this encounter Care Teams Computer Equipment Installer Relationship Specialty Start Date End Date Needs Pcp, Assignment [place], [place] [address] PCP - General 02/01/18 documented as of this encounter
--- OUTSIDE RECORDS SUMMARY | 2025-01-10 22:41 | XMS_ITS | Patient Health Record ---
Author Organization [facility] Melvi Gonzáles at [facility] Address [address] [place] [address] [place] [address] Care Team Providers Care Cooker Sulfite Name Role Phone VARGAS ADEN MD Primary [...] Problem Status W/U Status Risk Notes Problem 55807375 Heartburn (R12) Active confirmed Problem 08667938 Obstructive sleep apnea (adult) (pediatric) (G47.33) Active confirmed Problem 919176475 Dependence on other enabling machines and devices (Z99.89) Active confirmed Problem 120537809 Morbid (severe) obesity due to excess calories (E66.01) Active confirmed Problem 571680155 Low vitamin D level (R79.89) Active confirmed Problem 315556386 Body mass index [BMI] 45.0-49.9, adult (Z68.42) Active confirmed Plan Of Treatment No Information Insurance Providers Payer Name Payer Address Payer Phone Subscriber Number Group Number Insured Name Patient Relationship to Insured Coverage Start Date Coverage End Date BLUE [employer] PMAP [address] [address] [place] [phone] [id number] [facility] [employer] [place] Self - patient is the insured Medical [...]
--- OUTSIDE RECORDS SUMMARY | 2025-01-10 22:41 | XMS_ITS | Clinical Summary ---
Author Organization [email or web address] [facility] Address [address] [place] [address] Care Team Providers Care Plate Furnace Operator Name Role Phone Севтлана Malik Primary Care Provider [phone] Allergies Active Allergy Reactions Criticality Noted Date [...] 2 times daily if needed for Agitation. 09/10/19 24 Active clonazePAM (KLONOPIN) 0.5 mg tabletIndications: Panic disorder without agoraphobia Take 1 Tablet (0.5 mg) by mouth 2 times daily if needed for Anxiety (Panic attacks). 15 Tablet 03/22/20 24 Active lamoTRIgine 100 mg tabletIndications: Bipolar affective disorder, remission status unspecified (HC) Take 1 Tablet (100 mg) by mouth once daily. 30 Tablet 3 04/30/20 24 Active metoprolol succinate (TOPROL XL) 50 mg sustained-release tabletIndications: Palpitations,Sinus tachycardia Take 1 Tablet (50 mg) by mouth once daily. 90 Tablet 1 05/30/20 24 Active ondansetron (ZOFRAN ODT) 4 mg disintegrating tabletIndications: Abdominal pain, unspecified abdominal location,Calculus of gallbladder without cholecystitis without obstruction Place 1 Tablet (4 mg) on the tongue every 8 hours if needed for Nausea/Vomiti ng. 20 Tablet 07/05/20 24 Active citalopram (CELEXA) 10 mg tablet Take 10 mg by mouth once daily. 07/13/20 24 Active ketoconazole 2 % creamIndications:T inea pedis of left foot Apply topically to affected area(s) two times daily. Use twice a day for 4 weeks. 30 g 1 12/07/19 25 Active labetaloL 100 mg tabletIndications: Sinus tachycardia,Palpit ations Take 1 Tablet (100 mg) by mouth two times daily. 30 Tablet 1 12/25/19 25 Active labetaloL 100 mg tabletIndications: Sinus tachycardia,Palpit ations Take 0.5 Tablets (50 mg) by mouth two times daily. 30 Tablet 1 12/07/19 25 025 Discontin ued(*Medi cation adjustmen t) Active Problems Problem Noted Date Diagnosed Date Bipolar affective disorder, remission status uns pecified 09/05/2024 [facility], Encounter for preconception consultation Overview (08/07/2024): Kami R Sheets : 1995 [facility] PRECONCEPTION CONSULTATION ON REFERRING PHYSICIAN/CLINIC LOCATION/FAX #/LAST UPDATE: Plate Furnace Operator Role and Specialty Contact Info Address Start End Comments Светлана Malik DO General (Family Practice) [address] [facility] [address] 05/24/2023 - - Primary MD approves scheduling of recommended ultrasounds/testing: Yes REASON FOR CONSULT: currently on zepbound, would like within a year , BMI 44 , Hx of cerebral aneurysm 06/2023- follows at [facility] - Care Everywhere TODAY'S APPOINTMENT: MD Consultation PRIMARY DIAGNOSIS: 29 y.o. Anxiety, depression 2016 C/S BMI 44 SPECIALISTS/CONSULTS: Dr Naun Lama Neurology at [facility] - 03/05/24 Include: Specialty MD Clinic Name [...] imaging from 06/26/2023; following with neurology at [facility] - Visit 03/05/24, stated f/u was only needed for headaches, no longer needing surveillance for aneurysm Smoker 05/23/2023 05/23/2023 Overview (05/23/2023): 1-4 cigs per day x 2 yrs, quit 03/2016 Infection due to 2018 novel coronavirus 09/21/2022 05/23/2023 Anemia 12/11/2020 05/24/2023 [...] currently taking Effexor and managed by Psychiatrist ([facility]) -Obese BMI is 42 with HgbA1c is normal (5.0) on 10/19/16 (7wks) LAST PAP SMEAR: 05/2016 Tobacco abuse 06/18/2015 05/23/2023 Tobacco use disorder 06/18/2015 023 Encounters Date Type Department Care Team Description 12/24/2024 Nurse Triage [facility] [address] [facility] [address] Gloria Benavidez RN Fast Heartbeat 12/06/2024 9:35 AM CDT Office Visit [facility] [address] [place] [address] Светлана Malik, Medication Management (metoprolol) 12/06/2024 Travel 12/02/2024 1:39 PM CDT - 12/02/2024 3:35 PM CDT Emergency [facility] [address] [place] [address] JenniferBrie PA Abdominal cramping (Primary Dx); with history of miscarriage, first trimester (HC) Discharge Disposition: Home Self Care 11/15/2024 8:21 AM CDT - 11/15/2024 11:59 PM CDT Hospital Encounter [facility] [address] [place] [address] Светлана Malik, Positive test (HC) 11/15/2024 Travel 11/05/2024 1:00 PM CDT Orders Only [facility] [address] [place] [address] Lab 11/05/2024 Travel 11/02/2024 3:00 PM CDT Orders Only [facility] [address] [place] [address] Lab, [facility] Lab 11/01/2024 1:45 PM CDT Ancillary Procedure [facility] [address] [address] 11/01/2024 10:50 AM CDT Office Visit [facility] [address] [facility] [address] Светлана Malik DO Confirmation (lmp 09/23/24, positive home test about 2 weeks ago. Is having left sided cramping that is mildly concerning. 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 - [employer] Not on file Not on file Not on file Obstetrics History Para Term AB IAB SAB Ectopic Multiple Livin g Live Births 5 1 1 0 3 0 2 0 1 1 Date Outcome GA Total Labor Labor//3rd Weight Sex Type Anes PTL Anum A1 A5 Name Clin 4 SAB ELECTI VE AB 2014 AB 7 SAB 7w0 d SPONTA NEOUS 2016 Term 40w 6d 0h 01m 0h 01m 3.01 kg (6 lb 10 oz) M CS-LTr anv N Livin g 3 6 SHEETS ,BABYB OY ABIGAI L Diana Bonilla MD Complications: Intolera nce,Dysfunctional Labor Delivery [facility] Current Summary Episode Dates Number of Fetuses Estimated Date of Delivery 12/06/2024 - Present (01/10/2025) 06/30/2025 (set by Soniya Kennedy, RN on [...] alone Communication Method: Patient is active on [employer] and has been instructed that results/communications will be made via [employer] If a phone call is needed, the preferred number is: Mobile May we leave a detailed message at this number? Yes BP 115/76 (Cuff Site: Right Arm, Position: Sitting, Cuff Size: Adult Large) Pulse 89 Wt (!) 139.3 kg (307 lb) LMP 09/23/2024 (Exact Date) BMI 45.34 kg/m Yenifer Lanier [facility], 12/06/2024, 9:47 AM HPI: History of Present [...] 100 bpm. Referral to cardio-obstetrics program at [place] could be considered if adequate control is not achieved. - anticipate that HR will increase physiologically with changes 3. 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 - Symptoms include itchy, flaky skin on the bottom of the foot, suggesting tinea pedis - Previous treatments with ewhs-vzc-yqbmjfz antifungal spray and cream were ineffective. - will trial topical ketoconazole 2% BID x 4 weeks. If symptoms fail to improve, encouraged follow up. 31 minutes spent in chart review, bqus-ai-ftow with patient, and documentation on day of [...] history exists Depression screening for age 12+ 04/30/2025 04/30/2024 RSV vaccine for adults or (1 - Risk 1-dose series) 05/05/2025 Pap test for age 21-65 05/23/2028 , 05/23/2023, 06/18/2015, Additional history exists Tetanus booster 05/17/2033 05/17/2023, 09/23, 04/10/2013, Additional history exists Hepatitis C screening for age 18-79 Completed 06/16/2015 HIV for age 15-65 Completed 10/18/2016, 06/16/2015 Tdap Completed 05/17/2023, 03/23, 04/10/2013 ([facility]) COVID-19 vaccine series Completed 05/30/20, 06/01/2023, [...] AUTO&AUTO DIFRNTL WBC Routine 10/20/2024 1:26 PM LITURGICAL MUSIC DIRECTOR Possible ISTAT CHEM 8 Routine 10/20/2024 1:26 PM LITURGICAL MUSIC DIRECTOR Possible URINE POCT Routine 10/20/2024 12:56 PM LITURGICAL MUSIC DIRECTOR Possible UA W/ SEDIMENT EXAM REFLEXED PER CRITERIA STAT 10/20/2024 12:56 PM LITURGICAL MUSIC DIRECTOR Possible HPV HIGH RISK Routine 05/23/2023 5:02 PM CDT Screening for malignant neoplasm of cervix ANTI HIV 1/2 Routine 10/18/2016 2:13 PM LITURGICAL MUSIC DIRECTOR Encounter for supervision of normal first in [...] TA AND TV LOCATION: [facility] [place] DATE: 12/02/2024 INDICATION: Cramping, history of miscarriage. [...] 4 days and EDC of 07/03/2025. Brie CROWELL Final Re sult * (ABNORMAL) HCG BETA QUANT, EPPA (12/02/2024 1:52 PM CDT) HCG BETA QUANT,PREGNANC Y 53,430(H) Non : <5 mIU/mL 12/02/2024 3:13 PM CDT [facility] Blood BLOOD SPECIMEN / Unknown Non-Lab Venipuncture / Unknown 12/02/2024 1:52 PM CDT 12/02/2024 2:05 PM CDT Narrative [facility] - 12/02/2024 3:13 PM CDT Expected Value for Healthy Non- premenopausal women <5mIU/mL FOR GESTATIONAL ASSESSMENT-See Range Table Below Weeks Post LMP Approximate HCG Range: (Last Menstrual Period) 3-4 Weeks (9-130) 4-5 Weeks (75-2600) 5-6 Weeks (850-51726) 6-7 Weeks (4000-257265) 7-12 Weeks (51560-550200) 12-16 Weeks (36678-465343) 16-29 Weeks (1400-99941) 29-41 Weeks (940-43108) Expected Value for Healthy Non- premenopausal women <5mIU/mL FOR GESTATIONAL ASSESSMENT-See Range Table Below Weeks Post LMP Approximate HCG Range: (Last Menstrual Period) 3-4 Weeks (9-130) 4-5 Weeks (75-2600) 5-6 Weeks (850-76745) 6-7 Weeks (4000-693228) 7-12 Weeks (35516-730879) 12-16 Weeks (77782-698371) 16-29 Weeks (1400-12033) 29-41 Weeks (940-20510) Sedrick Lebron [place] [address] * STAT hCG Beta Quant, Serum (11/05/2024 1:22 PM CDT) Only the most recent of2 resultswithin the time period is included. HCG BETA QUANT,PREGNANC Y 2,140 mIU/mL 11/05/2024 11:21 PM CDT [facility] Blood BLOOD SPECIMEN / Unknown [facility] / Unknown 11/05/2024 1:22 PM CDT 11/05/2024 1:23 PM CDT [facility] - 11/05/2024 11:21 PM CDT Expected [...] Erasmo Lanier MD CHEMISTRY Final R esult [facility] [address] [place] [address], [place] * US OB ANY TRI TV [...] of2 resultswithin the time period is included. [facility] HCG URINE POSITIVE(A ) NEGATIVE [facility] Urine URINE SPECIMEN / Unknown 11/01/2024 11:24 AM CDT 11/01/2024 11:24 AM CDT Светлана Malik DO URINE Final Resu lt [facility] [address] [place] [address], [facility] [address] [place] [address] * (ABNORMAL) ISTAT CHEM 8 BMP (10/20/2024 1:26 PM LITURGICAL MUSIC DIRECTOR) [facility] POCT, SODIUM, ISTAT 139 138 - 146 mmol/L [facility] (U POCT, POTASSIUM, ISTAT 4.3 3.5 - 4.9 mmol/L [facility] (U POCT, CHLORIDE, ISTAT 104 98 - 109 mmol/L [facility] (U POCT, CARBON DIOXIDE, ISTAT 23(L) 24 - 29 mmol/L [facility] (U POCT, GLUCOSE ISTAT 81 70 - 105 mg/dL [facility] (U POCT, UREA NITROGEN (BUN) ISTAT 8 8 - 26 mg/dL [facility] (U POCT,CREATININE , ISTAT 0.8 0.6 - 1.3 mg/dL [facility] (U POCT, CALCIUM, IONIZED, ISTAT 4.7 4.5 - 5.3 mg/dL [facility] (U Blood BLOOD SPECIMEN / Unknown 10/20/2024 1:26 PM LITURGICAL MUSIC DIRECTOR 10/20/2024 1:27 PM LITURGICAL MUSIC DIRECTOR us Marcio CROWELL CHEMISTRY Final R esult [facility] [address] [place] [address], [facility] (U [address] [place] [address] * (ABNORMAL) CBC AND DIFFERENTIAL (10/20/2024 1:26 PM LITURGICAL MUSIC DIRECTOR) WHITE BLOOD CELL COUNT 9.3 3.8 - 10.8 Thousand/u L [facility] (U RED BLOOD CELL COUNT 4.73 3.80 - 5.10 Million/uL [facility] (U HEMOGLOBIN 11.5(L) 11.7 - 15.5 g/dL [facility] (U HEMATOCRIT 37.5 35.0 - 45.0 % [facility] (U MCV 79.3(L) 80.0 - 100.[address] [facility] (U MCH 24.3(L) 27.0 - 33.[address] [facility] (U MCHC 30.7(L) 32.0 - 36.0 g/dL [facility] (U Comment: For adults, a slight decrease in the calculated MCHC value (in the range of 30 to 32 g/dL) is most likely not clinically significant; however, it should be interpreted with caution in correlation with other red cell parameters and the patient's clinical condition. RDW 14.9 11.0 - 15.0 % [facility] (U PLATELET COUNT 389 140 - 400 Thousand/u L [facility] (U MPV 9.3 7.5 - 12.[address] [facility] (U ABSOLUTE NEUTROPHILS 5,031 1,500 - 7,800 cells/uL [facility] (U ABSOLUTE LYMPHOCYTES 3,450 850 - 3,900 cells/uL [facility] (U ABSOLUTE MONOCYTES 558 200 - 950 cells/uL [facility] (U ABSOLUTE EOSINOPHILS 223 15 - 500 cells/uL [facility] (U ABSOLUTE BASOPHILS 37 0 - 200 cells/uL [facility] (U NEUTROPHILS 54.1 % [facility] (U LYMPHOCYTES 37.1 % [facility] (U MONOCYTES 6.0 % [facility] (U EOSINOPHILS 2.4 % [facility] (U BASOPHILS 0.4 % [facility] (U Blood BLOOD SPECIMEN / Unknown 10/20/2024 1:26 PM LITURGICAL MUSIC DIRECTOR 10/20/2024 1:27 PM LITURGICAL MUSIC DIRECTOR us Marcio CROWELL HEMATOLOGY Final R esult [facility] [address] [place] [address], [place] [facility] ([place] [address] [place] [address] * (ABNORMAL) UA W/ SEDIMENT EXAM REFLEXED PER CRITERIA [26374.2] (10/20/2024 12:56 PM LITURGICAL MUSIC DIRECTOR) COLOR YELLOW YELLOW [facility] (U APPEARANCE CLEAR CLEAR [facility] (U SPECIFIC GRAVITY 1.015 1.001 - 1.035 [facility] (U PH 5.5 5.0 - 8.0 [facility] (U GLUCOSE NEGATIVE NEGATIVE [facility] (U BILIRUBIN NEGATIVE NEGATIVE [facility] (U KETONES NEGATIVE NEGATIVE [facility] (U OCCULT BLOOD TRACE(A) NEGATIVE [facility] (U PROTEIN NEGATIVE NEGATIVE [facility] (U NITRITE NEGATIVE NEGATIVE [facility] (U LEUKOCYTE ESTERASE NEGATIVE NEGATIVE [facility] (U WBC UA NONE SEEN < OR = 5 /HPF [facility] (U RBC UA 0-2 < OR = 2 /HPF [facility] (U SQUAMOUS EPITHELIAL CELLS UA 0-5 < OR = 5 /HPF [facility] (U BACTERIA UA NONE SEEN NONE SEEN /HPF [facility] (U NOTE UA [facility] (U Comment: This urine was analyzed for the presence of WBC, RBC, bacteria, casts, and other formed elements. Only those elements seen were reported. Urine URINE SPECIMEN / Unknown 10/20/2024 12:56 PM LITURGICAL MUSIC DIRECTOR 10/20/2024 12:57 PM LITURGICAL MUSIC DIRECTOR us Marcio CROWELL URINE Final R esult [facility] [address] [place] [address], [facility] ([address] [address] [place] [address] * HPV HIGH RISK (05/23/2023 5:02 PM CDT) TYPE 16 Negative Negative 05/27/2023 1:16 PM CDT [facility] TYPE 18 Negative Negative 05/27/2023 1:16 PM CDT [facility] OTHER HIGH RISK TYPES Negative Negative 05/27/2023 1:16 PM CDT [facility] Other (Cervical) Non-Blood / Unknown 05/23/2023 5:02 PM CDT 05/24/2023 5:02 PM CDT Narrative [facility] - 05/27/2023 1:16 PM CDT HPV types 16, 18, 31, 33, 35, 39, 45, 51, 52, 56, 58, 59, 66 and 68 DNA were undetectable or below the pre-set threshold. Methodology: Steve Nikki 4800 HPV Test us Светлана Malik DO MICROBIOLOGY Final Resu lt [facility] [address] [place] [address], [place] * ANTI HIV 1/2 (10/18/2016 2:13 PM LITURGICAL MUSIC DIRECTOR) HIV-1/HIV-2 ANTIBODY Non-Reacti ve Non-Reacti ve 10/18/2016 6:20 PM LITURGICAL MUSIC DIRECTOR [facility] Blood BLOOD SPECIMEN / Unknown Venipuncture / Unknown 10/18/2016 2:13 PM LITURGICAL MUSIC DIRECTOR 10/18/2016 2:13 PM LITURGICAL MUSIC DIRECTOR Narrative [facility] - 10/18/2016 6:20 PM LITURGICAL MUSIC DIRECTOR HIV-1 p24 and HIV-1/HIV-2 Ab not detected us Senait Curtis MOLDER SEND OUTS Final Res ult [facility] [address] [place] [address], [place] * ANTI HCV (06/16/2015 10:49 AM CDT) HEPATITIS C ANTIBODY Non-Reacti ve Non-Reacti ve 06/16/2015 5:48 PM CDT [facility] Blood specimen (specimen) BLOOD SPECIMEN / Unknown Venipuncture / Unknown 06/16/2015 10:49 AM CDT 06/16/2015 10:50 AM CDT Narrative [facility] - 06/16/2015 5:48 PM CDT Antibodies to HCV not detected; does not exclude the possibility of exposure to HCV. Rachel Monet DO SEND OUTS Julianna l Result [facility] [address] [place] [address], from Last 3 Months or Most Recently Relevant to Health Maintenance Insurance Assignment Editor [employer] OF [employer] OF NON-RI-ITS Care Teams Plate Furnace Operator Relationship Specialty Start Date End Date Светлана Malik [place] [address] [place] [address] PCP - General Family Practice 05/24/23
[2025-01-10 22:59] VITALS: BP 122/77; PULSE 89; RESP 18; TEMP 36.5; O2SAT 98; BMI 45.8
--- OUTSIDE RECORDS SUMMARY | 2025-01-11 01:15 | XMS_ITS | Referral Summary ---
Author Organization [facility] Address [address] [place] [address] Care Team Providers Care Inspector Machine Parts Name Role Phone Kaitlin Hunter MD Primary Care Provider [phone] Serena Temple MD Unavailable [phone] Allergies Active Allergy Reactions Criticality Noted Date Comments Ibuprofen Swelling, lips/tongue,Rash High 6 Kiwi Hives Medium 10/08/2021 Medications levonorgestreL (MIRENA) 20 mcg/24 hours (6 yrs) 52 mg IU IUD 1 Device by Intrauterine route ONCE. Active Mth-Me Blue-Sod Fsma-AoVzl-Jmh (URIBEL) 118-10-40.8-36 mg oral Cap Take 1 [...] (10/22/2021): Added automatically from request for surgery [id number] JUAN PABLO (obstructive sleep apnea) 10/01/2021 Overview [...] Sex Assigned at Female 07/02/2021 11:07 AM SENIOR PROJECT MANAGER Legal Sex Female 4:50 PM CDT Gender Identity Female 07/02/2021 11:07 AM SENIOR PROJECT MANAGER Sexual Orientation Bisexual 07/02/2021 11 :07 AM SENIOR PROJECT MANAGER Last Filed Vital Signs Vital Sign Reading [...] PM CDT) Case Report Pap Smear Case: [id number] Authorizing Provider: Georgina Metzger PA-C Collected: 04/30/2020 06:28 PM Ordering Location: [facility] - Received: 05/01/2020 05:56 PM [facility] First Screen: Sumi Myrick Specimen: Cervical Thin Prep (HPV Reflex) Welt Maker Screen, Cervix 05/05/2020 3:37 PM CDT [facility] Interpretation Negative for intraepithelial lesion or malignant cells. 05/05/2020 3:37 PM CDT [facility] Specimen Adequacy Satisfactory for evaluation. Endocervical/trans formation zone component absent. 05/05/2020 3:37 PM CDT [facility] LMP 04/30/2020 05/05/2020 3:37 PM CDT [facility] Pap Disclaimer This specimen was screened by the [employer] System prior to manual review by a licensing services clerk and/or pathologist. The Pap test is a [...] 17 (5): S2-S27 05/05/2020 3:37 PM CDT [facility] Vaginal and cervical cytologic material (specimen) CERVIX UTERI STRUCTURE / Unknown 04/30/2020 6:28 PM CDT 05/01/2020 5:56 PM CDT Comment:No LMP recorded. (Ok nstrual status: IUD). Georgina Metzger PA-C PATHOLOGY/CYTOLOGY ORDERABLE F inal Result [facility] [address] [place] [address] * HEP C ANTIBODY (04/30/2020 5:54 PM CDT) Hepatitis C Antibody Non-Reacti ve Non-Reacti ve 05/01/2020 1:06 PM CDT [facility] Blood specimen (specimen) VENOUS BLOOD SPECIMEN / Unknown 04/30/2020 5:54 PM CDT 05/01/2020 11:44 AM CDT Georgina Metzger PA-C IMMUNOLOGY ORDERABLE Final Res ult [facility] [address] [place] [address] from Last 3 Months or Most Recently Relevant to Health Maintenance Care Teams Inspector Machine Parts Relationship Specialty Start Date End Date Kaitlin Hunter MD [address] [facility] [address] [place] [address] PCP - General Family Medicine 10/23/21 Serena Temple MD [address] [facility] [address] [place] [address] Neurology 10/23/21
--- OUTSIDE RECORDS SUMMARY | 2025-01-11 01:15 | XMS_ITS | Encounter Summary ---
Author Organization [facility] Address [address] [place] [address] Care Team Providers Care Independent Driver Name Role Phone Needs Pcp, Assignment Primary Care Provider [phone] Encounter Details Date Type Department Care Team (Late st Contact Info) Description 06/08/2017 Scanned History External to External, [place] [address] [facility]- RECORDS Social History Tobacco Use Types Packs/Day [...] on filedocumented in this encounter Care Teams Independent Driver Relationship Specialty Start Date End Date Needs Pcp, Assignment [place], [place] [id number] PCP - General 02/01/18 documented as of this encounter
--- OUTSIDE RECORDS SUMMARY | 2025-01-11 01:15 | XMS_ITS | Clinical Summary ---
Author Organization [facility] Address [address] [place] [address] Care Team Providers Care Software Development Advisor Name Role Phone Kaitlin Hunter MD Primary Care Provider [phone] Serena Temple MD Unavailable [phone] Allergies Active Allergy Reactions Criticality Noted Date Comments Ibuprofen Swelling, lips/tongue,Rash High 6 Kiwi Hives Medium 10/08/2021 Medications levonorgestreL (MIRENA) 20 mcg/24 hours (6 yrs) 52 mg IU IUD 1 Device by Intrauterine route ONCE. Active Mth-Me Blue-Sod Odrs-ZsQtk-Pzb (URIBEL) 118-10-40.8-36 mg oral Cap Take 1 [...] (10/22/2021): Added automatically from request for surgery [id number] JUAN PABLO (obstructive sleep apnea) 10/01/2021 Overview [...] Sex Assigned at Female 07/02/2021 11:07 AM WILDERNESS GUIDE Legal Sex Female 4:50 PM CDT Gender Identity Female 07/02/2021 11:07 AM WILDERNESS GUIDE Sexual Orientation Bisexual 07/02/2021 11 :07 AM WILDERNESS GUIDE Last Filed Vital Signs Vital Sign Reading [...] PM CDT) Case Report Pap Smear Case: [id number] Authorizing Provider: Georgina Metzger PA-C Collected: 04/30/2020 06:28 PM Ordering Location: [facility] - Received: 05/01/2020 05:56 PM [facility] First Screen: Sumi Myrick Specimen: Cervical Thin Prep (HPV Reflex) Meat Counter Worker Screen, Cervix 05/05/2020 3:37 PM CDT [facility] Interpretation Negative for intraepithelial lesion or malignant cells. 05/05/2020 3:37 PM CDT [facility] Specimen Adequacy Satisfactory for evaluation. Endocervical/trans formation zone component absent. 05/05/2020 3:37 PM CDT [facility] LMP 04/30/2020 05/05/2020 3:37 PM CDT [facility] Pap Disclaimer This specimen was screened by the [employer] [facility] prior to manual review by a social science analyst and/or pathologist. The Pap test is a [...] 17 (5): S2-S27 05/05/2020 3:37 PM CDT [facility] Vaginal and cervical cytologic material (specimen) CERVIX UTERI STRUCTURE / Unknown 04/30/2020 6:28 PM CDT 05/01/2020 5:56 PM CDT Comment:No LMP recorded. (Id nstrual status: IUD). Georgina Metzger PA-C PATHOLOGY/CYTOLOGY ORDERABLE F inal Result Performing Organization Address City/[facility]/ZIP Co de Phone Number [facility] [address] [place] [id number] * HEP C ANTIBODY (04/30/2020 5:54 PM CDT) Hepatitis C Antibody Non-Reacti ve Non-Reacti ve 05/01/2020 1:06 PM CDT [facility] Blood specimen (specimen) VENOUS BLOOD SPECIMEN / Unknown 04/30/2020 5:54 PM CDT 05/01/2020 11:44 AM CDT Georgina Metzger PA-C IMMUNOLOGY ORDERABLE Final Res ult Performing Organization Address City/[facility]/ZIP Co de Phone Number [facility] [address] [place] [address] from Last 3 Months or Most Recently Relevant to Health Maintenance Care Teams Software Development Advisor Relationship Specialty [place] [address] [place] [address] [address] [place] [address] PCP - General Family Medicine 10/23/21 Serena Temple MD [address] [place] [address] [facility] [place] 10/23/21
--- OUTSIDE RECORDS SUMMARY | 2025-01-11 01:15 | XMS_ITS | Clinical Summary ---
Author Organization [facility] Address [address] [place] [address] Care Team Providers Care Vegetable Inspector Name Role Phone Светлана Malik Primary Care Provider [phone] Allergies Active Allergy Reactions Criticality Noted Date [...] affective disorder, remission status uns pecified 09/05/2024 [facility], Encounter for preconception consultation Overview (08/07/2024): Kami R Sheets : 1995 [facility] PRECONCEPTION CONSULTATION ON REFERRING PHYSICIAN/CLINIC LOCATION/FAX #/LAST UPDATE: Vegetable Inspector Role and Specialty Contact Info Address Start End Comments Светлана Malik DO General (Family Practice) [address] [facility] [address] 05/24/2023 - - Primary MD approves scheduling of recommended ultrasounds/testing: Yes REASON FOR CONSULT: currently on zepbound, would like within a year , BMI 44 , Hx of cerebral aneurysm 06/2023- follows at [facility] - Care Everywhere TODAY'S APPOINTMENT: MD Consultation PRIMARY DIAGNOSIS: 29 y.o. Anxiety, depression 2016 C/S BMI 44 SPECIALISTS/CONSULTS: Dr Naun Lama Neurology at [facility] - 03/05/24 Include: Specialty MD Clinic Name [...] imaging from 06/26/2023; following with neurology at [facility] - Visit 03/05/24, stated f/u was only [...] currently taking Effexor and managed by Psychiatrist ([facility]) -Obese BMI is 42 with HgbA1c is normal (5.0) on 10/19/16 (7wks) LAST PAP SMEAR: 05/2016 Tobacco abuse 06/18/2015 05/23/2023 Tobacco use disorder 06/18/2015 023 Encounters Date Type Department Care Team Description 12/24/2024 Nurse Triage [facility] [address] [place] [address] Gloria Benavidez RN Fast Heart[facility] 12/06/2024 9:35 AM CDT Office Visit [facility] [address] [facility] [place] [address] Светлана Malik, Medication Management (metoprolol) 12/06/2024 Travel 12/02/2024 1:39 PM CDT - 12/02/2024 3:35 PM CDT Emergency [facility] [address] [place] [address] JenniferBrie PA Abdominal cramping (Primary Dx); with history of miscarriage, first trimester (HC) Discharge Disposition: Home Self Care 11/15/2024 8:21 AM CDT - 11/15/2024 11:59 PM CDT Hospital Encounter [facility] [address] [place] [address] Светлана Malik, Positive test (HC) 11/15/2024 Travel 11/05/2024 1:00 PM CDT Orders Only [facility] [address] [place] [address] Lab 11/05/2024 Travel 11/02/2024 3:00 PM CDT Orders Only [facility] [address] [place] [address] Lab, [facility] 11/01/2024 1:45 PM CDT Ancillary Procedure [facility] [address] [address] 11/01/2024 10:50 AM CDT Office Visit [facility] [address] [place] [address] Светлана Malik DO Confirmation (lmp 09/23/24, positive home test about 2 weeks ago. Is having left sided cramping that is mildly concerning. 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 Yes BP 115/76 (Cuff Site: Right Arm, Position: Sitting, Cuff Size: Adult Large) Pulse 89 Wt (!) 139.3 kg (307 lb) LMP 09/23/2024 (Exact Date) BMI 45.34 kg/m Yenifer Lanier [facility], 12/06/2024, 9:47 AM HPI: History of [...] 100 bpm. Referral to cardio-obstetrics program at [facility] could be considered if adequate control is not achieved. - anticipate that HR will increase physiologically with changes 3. 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 - Symptoms include itchy, flaky skin on the bottom of the foot, suggesting tinea pedis - Previous treatments with hlos-sbu-bwouqhs antifungal spray and cream were ineffective. - will trial topical ketoconazole 2% BID x 4 weeks. If symptoms fail to improve, encouraged follow up. 31 minutes spent in chart review, qwjs-ao-runt with patient, and documentation on day of [...] Completed 05/17/2023, 03/23, 04/10/2013 [facility] COVID-19 vaccine series Completed 05/30/20, 06/01/2023, [...] Routine 11/01/2024 11:24 AM CDT Missed period CO BLOOD COUNT COMPLETE AUTO&AUTO DIFRNTL WBC Routine 10/20/2024 1:26 PM SENIOR COMMUNICATIONS ENGINEER Possible ISTAT CHEM 8 Routine 10/20/2024 1:26 PM SENIOR COMMUNICATIONS ENGINEER Possible URINE POCT Routine 10/20/2024 12:56 PM SENIOR COMMUNICATIONS ENGINEER Possible UA W/ SEDIMENT EXAM REFLEXED PER CRITERIA STAT 10/20/2024 12:56 PM SENIOR COMMUNICATIONS ENGINEER Possible HPV HIGH RISK Routine 05/23/2023 5:02 PM CDT Screening for malignant neoplasm of cervix ANTI HIV 1/2 Routine 10/18/2016 2:13 PM SENIOR COMMUNICATIONS ENGINEER Encounter for supervision of normal first in [...] TA AND TV LOCATION: [facility] DATE: 12/02/2024 INDICATION: Cramping, history of miscarriage. [...] Weeks (9-130) 4-5 Weeks (75-2600) 5-6 Weeks (850-50737) 6-7 Weeks (4000-296925) 7-12 Weeks (18095-283839) 12-16 Weeks (79202-131415) 16-29 Weeks (1400-41130) 29-41 Weeks (940-46047) Expected Value for Healthy Non- premenopausal women <5mIU/mL FOR GESTATIONAL ASSESSMENT-See Range Table Below Weeks Post LMP Approximate HCG Range: (Last Menstrual Period) 3-4 Weeks (9-130) 4-5 Weeks (75-2600) 5-6 Weeks (850-09944) 6-7 Weeks (4000-585386) 7-12 Weeks (92803-038188) 12-16 Weeks (84333-079794) 16-29 Weeks (1400-72420) 29-41 Weeks (940-56807) Sedrick Lebron [place] [address] * STAT hCG Beta Quant, Serum (11/05/2024 1:22 PM CDT) Only the most recent of2 resultswithin the time period is included. HCG BETA QUANT,PREGNANC Y 2,140 mIU/mL 11/05/2024 11:21 PM CDT [facility] Blood BLOOD SPECIMEN / Unknown [facility] / Unknown 11/05/2024 1:22 PM CDT 11/05/2024 1:23 PM CDT [facility] - 11/05/2024 11:21 PM CDT [...] Erasmo Lanier MD CHEMISTRY Final R esult [facility] [address] [place] [address], [place] * US OB ANY TRI TV [...] resultswithin the time period is included. [facility] HCG URINE POSITIVE(A ) NEGATIVE [employer] [facility] Urine URINE SPECIMEN / Unknown 11/01/2024 11:24 AM CDT 11/01/2024 11:24 AM CDT Светлана Malik DO URINE Final Resu lt [facility] [address] [place] [address], [facility] [address] [place] [address] * (ABNORMAL) ISTAT CHEM 8 BMP (10/20/2024 1:26 PM SENIOR COMMUNICATIONS ENGINEER) [facility] [address] POCT, SODIUM, ISTAT 139 138 - 146 mmol/L [facility] (U POCT, POTASSIUM, ISTAT 4.3 3.5 - 4.9 mmol/L [facility] (U POCT, CHLORIDE, ISTAT 104 98 - 109 mmol/L [facility] (U POCT, CARBON DIOXIDE, ISTAT 23(L) 24 - 29 mmol/L [facility] (U POCT, GLUCOSE ISTAT 81 70 - 105 mg/dL [facility] (U POCT, UREA NITROGEN (BUN) ISTAT 8 8 - 26 mg/dL [facility] (U POCT,CREATININE , ISTAT 0.8 0.6 - 1.3 mg/dL [facility] (U POCT, CALCIUM, IONIZED, ISTAT 4.7 4.5 - 5.3 mg/dL [facility] (U Blood BLOOD SPECIMEN / Unknown 10/20/2024 1:26 PM SENIOR COMMUNICATIONS ENGINEER 10/20/2024 1:27 PM SENIOR COMMUNICATIONS ENGINEER us Marcio CROWELL CHEMISTRY Final R esult [facility] [address] [place] [address], [facility] (U [address] [place] [address] * (ABNORMAL) CBC AND DIFFERENTIAL (10/20/2024 1:26 PM SENIOR COMMUNICATIONS ENGINEER) WHITE BLOOD CELL COUNT 9.3 3.8 - 10.8 Thousand/u L [facility] (U RED BLOOD CELL COUNT 4.73 3.80 - 5.10 Million/uL [facility] (U HEMOGLOBIN 11.5(L) 11.7 - 15.5 g/dL [facility] (U HEMATOCRIT 37.5 35.0 - 45.0 % [facility] (U MCV 79.3(L) 80.0 - 100.0 fL [facility] (U MCH 24.3(L) 27.0 - 33.0 pg [facility] (U MCHC 30.7(L) 32.0 - 36.0 g/dL [facility] (U Comment: For adults, a slight decrease in the calculated MCHC value (in the range of 30 to 32 g/dL) is most likely not clinically significant; however, it should be interpreted with caution in correlation with other red cell parameters and the patient's clinical condition. RDW 14.9 11.0 - 15.0 % [facility] (U PLATELET COUNT 389 140 - 400 Thousand/u L [facility] (U MPV 9.3 7.5 - 12.5 fL [facility] (U ABSOLUTE NEUTROPHILS 5,031 1,500 - 7,800 cells/uL [facility] (U ABSOLUTE LYMPHOCYTES 3,450 850 - 3,900 cells/uL [facility] (U ABSOLUTE MONOCYTES 558 200 - 950 cells/uL [facility] (U ABSOLUTE EOSINOPHILS 223 15 - 500 cells/uL [facility] (U ABSOLUTE BASOPHILS 37 0 - 200 cells/uL [facility] (U NEUTROPHILS 54.1 % [facility] (U LYMPHOCYTES 37.1 % [facility] (U MONOCYTES 6.0 % [facility] (U EOSINOPHILS 2.4 % [facility] (U BASOPHILS 0.4 % [facility] (U Blood BLOOD SPECIMEN / Unknown 10/20/2024 1:26 PM SENIOR COMMUNICATIONS ENGINEER 10/20/2024 1:27 PM SENIOR COMMUNICATIONS ENGINEER us Marcio CROWELL HEMATOLOGY Final R esult [facility] [address] [place] [address], [place] [facility] (U [address] [place] [address] * (ABNORMAL) UA W/ SEDIMENT EXAM REFLEXED PER CRITERIA [90764.2] (10/20/2024 12:56 PM SENIOR COMMUNICATIONS ENGINEER) COLOR YELLOW YELLOW [facility] (U APPEARANCE CLEAR CLEAR [facility] (U SPECIFIC GRAVITY 1.015 1.001 - 1.035 [facility] (U PH 5.5 5.0 - 8.0 [facility] (U GLUCOSE NEGATIVE NEGATIVE [facility] (U BILIRUBIN NEGATIVE NEGATIVE [facility] (U KETONES NEGATIVE NEGATIVE [facility] (U OCCULT BLOOD TRACE(A) NEGATIVE [facility] (U PROTEIN NEGATIVE NEGATIVE [facility] (U NITRITE NEGATIVE NEGATIVE [facility] (U LEUKOCYTE ESTERASE NEGATIVE NEGATIVE [facility] (U WBC UA NONE SEEN < OR = 5 /HPF [facility] (U RBC UA 0-2 < OR = 2 /HPF [facility] (U SQUAMOUS EPITHELIAL CELLS UA 0-5 < OR = 5 /HPF [facility] (U BACTERIA UA NONE SEEN NONE SEEN /HPF [facility] (U NOTE UA [facility] (U Comment: This urine was analyzed for the presence of WBC, RBC, bacteria, casts, and other formed elements. Only those elements seen were reported. Urine URINE SPECIMEN / Unknown 10/20/2024 12:56 PM SENIOR COMMUNICATIONS ENGINEER 10/20/2024 12:57 PM SENIOR COMMUNICATIONS ENGINEER us Marcio CROWELL URINE Final R esult [facility] [address] [place] [address], [facility] (U [address] [place] [address] * HPV HIGH RISK (05/23/2023 5:02 PM CDT) TYPE 16 Negative Negative 05/27/2023 1:16 PM CDT [facility] TYPE 18 Negative Negative 05/27/2023 1:16 PM CDT [facility] OTHER HIGH RISK TYPES Negative Negative 05/27/2023 1:16 PM CDT [facility] Other (Cervical) Non-Blood / Unknown 05/23/2023 5:02 PM CDT 05/24/2023 5:02 PM CDT Narrative [facility] - 05/27/2023 1:16 PM CDT HPV types 16, 18, 31, 33, 35, 39, 45, 51, 52, 56, 58, 59, 66 and 68 DNA were undetectable or below the pre-set threshold. Methodology: Steve Nikki 4800 HPV Test us Светлана Malik DO MICROBIOLOGY Final Resu lt [facility] [address] [place] [address], [place] * ANTI HIV 1/2 (10/18/2016 2:13 PM SENIOR COMMUNICATIONS ENGINEER) HIV-1/HIV-2 ANTIBODY Non-Reacti ve Non-Reacti ve 10/18/2016 6:20 PM SENIOR COMMUNICATIONS ENGINEER [facility] Blood BLOOD SPECIMEN / Unknown Venipuncture / Unknown 10/18/2016 2:13 PM SENIOR COMMUNICATIONS ENGINEER 10/18/2016 2:13 PM SENIOR COMMUNICATIONS ENGINEER Narrative [facility] - 10/18/2016 6:20 PM SENIOR COMMUNICATIONS ENGINEER HIV-1 p24 and HIV-1/HIV-2 Ab not detected us Senait Curtis RED HAT OPEN STACK ADMINISTRATOR SEND OUTS Final Res ult [facility] [address] [place] [address], [place] * ANTI HCV (06/16/2015 10:49 AM CDT) HEPATITIS C ANTIBODY Non-Reacti ve Non-Reacti ve 06/16/2015 5:48 PM CDT [facility] Blood specimen (specimen) BLOOD SPECIMEN / Unknown Venipuncture / Unknown 06/16/2015 10:49 AM CDT 06/16/2015 10:50 AM CDT Narrative [facility] - 06/16/2015 5:48 PM CDT Antibodies to HCV not detected; does not exclude the possibility of exposure to HCV. Rachel Monet DO SEND OUTS Julianna l Result [facility] [address] [place] [address], from Last 3 Months or Most Recently Relevant to Health Maintenance Insurance [employer] Care Teams Vegetable Inspector Relationship Specialty Start Date End Date Светлана Malik [place] [place] [address] PCP - General Family Practice 05/24/23
--- OUTSIDE RECORDS SUMMARY | 2025-01-11 01:15 | XMS_ITS | Clinical Summary ---
Author Organization [facility] Address [address] [place] [address] Care Team Providers Care Emt Paramedic Name Role Phone Elsewhere, Pcp Primary Care Provider Unavailabl e Source Comments Patient records contain information from all sites at [facility]. For routine questions regarding patient records, call [phone] during business hours, M-F 8:00 AM - 5:00 PM Central Time. Record requests for emergency care only can be directed to [phone] at any time.[facility] Allergies Active Allergy Reactions Criticality Noted Date [...] your living situation today? I have a [facility] place to live 07/27/2023 Comments Unknown Sex and Gender Information Value Date Recorded Sex Assigned at Female 07/27/2023 7:49 AM SLIPPER MAKER Legal Sex Female 10:27 AM SLIPPER MAKER Gender Identity Female 07/27/2023 7:49 AM SLIPPER MAKER Sexual Orientation Bisexual 07/27/2023 7: 49 AM SLIPPER MAKER Last Filed Vital Signs Vital Sign Reading Time Taken Comments Blood Pressure 116/72 06/01/2024 5:30 PM CDT Pulse 85 06/01/2024 5:30 PM CDT Temperature 36.1 C (97 F) 09/05/2023 1:32 PM SLIPPER MAKER Respiratory Rate 28 06/01/2024 5:30 PM CDT [...] this topic Medical Devices Implanted Type Area Sheet Tailer Device Identifier Shelf Expiration Date Model / Serial / Lot Hardware E.G. Pins/Screws/Milo s Hardware e.g. pins/screws/milo s Right: Arm Intrauterine Device Intrauterine Device Uterus Description:Mirena Insurance [facility] [place] [address] Care Teams Emt Paramedic Relationship Specialty Start Date End Date Elsewhere, Pcp PCP - General Internal Medicine 03/01/24
--- OUTSIDE RECORDS SUMMARY | 2025-01-11 01:15 | XMS_ITS | Clinical Summary ---
Author Organization [facility] Address [address] [place] [address]. [place] [address] Care Team Providers Care Thermo Processor Name Role Phone Daisy Beebe PA-C Unavailable [phone] System, Provider Not In Primary Care Provider [...] due to 2019 novel coronavirus 09/21/19 23 UJAN PABLO (obstructive sleep apnea) 10/01/2021 Overview (09/21/2022): [...] Description 11/15/2024 2:00 PM CDT Office Visit [facility] [place] [id number] [facility] [address] [place] [address] Angely Stevens PA-C Insertional Achilles [...] on file Legal Sex Female 4:15 AM GAS PRODUCER Gender Identity Not on file Sexual Orientation [...] OUT OF STATE [place]ICAID [place] Care Teams Thermo Processor Relationship Specialty Start Date End Date System, Provider Not In PCP - General Clinic 02/19/23 Daisy Beebe PA-C [address] [facility] [address] [place] [address] Assigned PCP 08/25/22 Nilam Beal MD [address] [facility] [address] [place], [place] [address] Cardiovascular Disease 02/21/23
--- OUTSIDE RECORDS SUMMARY | 2025-01-11 01:15 | XMS_ITS | Encounter Summary ---
Author Organization [facility] Address [address] [place] [address] Care Team Providers Care Supervisor Real Estate Office Name Role Phone Kaitlin Hunter MD Primary Care Provider [phone] Serena Temple MD Unavailable [phone] Encounter Details Date Type Department Care Team (Latest Contact Info) Description 10/16/2021 Prep For Procedure [facility] [address] [facility] [address] [place], [place] [id number] [place] [address] [place] [address] [address] [place], [place] [id number] Syncope, unspecified syncope type (Primary Dx) Social [...] Sex Assigned at Female 07/02/2021 11:07 AM MOTOR ANALYST Legal Sex Female 4:50 PM CDT Gender Identity Female 07/02/2021 11:07 AM MOTOR ANALYST Sexual Orientation Bisexual 07/02/2021 11 :07 AM MOTOR ANALYST COVID-19 Exposure Response Date Recorded In the last month, have you been in contact with someone who was confirmed or suspected to have Coronavirus / COVID-19? No / Unsure 10/19/2021 1:16 PM MOTOR ANALYST documented as of this encounter Plan of Treatment Not on file documented as of this encounter Visit Diagnoses Diagnosis Syncope, unspecified syncope type- Primary documented in this encounter Additional Health Concerns Infection Onset Date Last Indicated Resolved Time COVID-19 01/27/2022 01/27/2022 02/26/2022 2:49 AM CDT documented as of this encounter Care Teams Supervisor Real Estate Office Relationship Specialty Start Date End Date Kaitlin Hunter MD [address] [place] [address] PCP - General Family Medicine 10/23/21 Serena Temple MD [address] [place] [address] [place] [address] Neurology 10/23/21 documented as of this encounter
--- OUTSIDE RECORDS SUMMARY | 2025-01-11 01:15 | XMS_ITS | Clinical Summary ---
Author Organization [facility] Address [address] [address] Phone Care Team Providers Care Business Info Consultant Name Role Phone Joanne Ramsey APRN, E MARKETING SPECIALIST Unavailable Luisana Cuevas MD Primary Care Provider [phone] Allergies Active Allergy Reactions Criticality Noted Date [...] PM CDT Legal Sex Female 11:06 PM STEAM TURBINE OPERATOR Gender Identity Female 11/08/2022 6:00 PM [...] to complete this topic Insurance [employer] [facility] Advance Directives For more information, please contact: [phone] * Full Code (Latest Code Status on File) Date Activated Date Inactivated Comments 11/08/2022 6:25 PM 11/11/2022 4:46 PM Care Teams Business Info Consultant Relationship Specialty Start Date End Date Luisana Cuevas MD [address] [address] PCP - General customer pricing manager 03/28/23 Joanne Ramsey, JTAC, E MARKETING SPECIALIST [address] [place] [phone] Nurse Practitioner Psychiatry 11/15/22
--- OUTSIDE RECORDS SUMMARY | 2025-01-11 01:16 | XMS_ITS | Patient Health Record ---
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.]
--- OUTSIDE RECORDS SUMMARY | 2025-01-11 01:16 | XMS_ITS | Clinical Summary ---
Author Organization [facility] Address [address] [place] [address] Care Team Providers Care Practicing Dermatologist Name Role Phone Needs Pcp, Assignment Primary Care Provider [phone] Source Comments You are receiving this document as you are listed as the primary care provider,follow-up provider, or the patient has been referred to you for consultation.This is in compliance with the Medicare and[facility] Cent[facility] EHR Incentive Program,which states Providers who transition their patient to another setting of careor provider of care or refers their patient to another provider of care shouldprovide summary care record for each transition of care or referral. 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
--- OUTSIDE RECORDS SUMMARY | 2025-01-11 01:16 | XMS_ITS | Encounter Summary ---
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
--- OUTSIDE RECORDS SUMMARY | 2025-01-11 01:16 | XMS_ITS | Encounter Summary ---
[facility] Organization [facility] Address [address] [address] Care Team Providers Care Plan Examiner Name Role Phone Needs Pcp, Assignment Primary Care Provider [phone] Encounter Details Date Type Department Care Team [...] on filedocumented in this encounter Care Teams Plan Examiner Relationship Specialty Start Date End Date Needs Pcp, [facility]ía [facility] [place], [place] [address] PCP - General 02/01/18 documented as of this encounter
[2025-01-11 01:17] VITALS: BP 110/64; PULSE 74; RESP 18; TEMP 36.4; O2SAT 98
[2025-01-11 01:17] LABS: Appearance Urine Clear (Clear); Bilirubin Urine Negative (Negative); Blood Urine Trace-lysed (Negative); Color Urine Yellow (Yellow); Glucose Urine Negative (Negative); Ketones Urine Negative (Negative); Leukocyte Esterase Urine Negative (Negative); Nitrite Urine Negative (Negative); Protein Urine Negative (Negative); Urobilinogen Urine 0.2 (0.2-1.0)
[2025-01-11 01:25] LABS: Bacteria Urine Few; Squamous Epithelial Cell Urine Few (None-Few); WBC Urine 0-2 (0-5)
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
== END 2025-01-11 01:35 | disposition home or self-care (01) ==
PROVIDERS: Emergency Provider Family Medicine; PCP Family Medicine
DX: R10.30 Lower abdominal pain, unspecified (principal); Z3A.15 15 weeks gestation of pregnancy
CPT/HCPCS: 81001; 87086; 99282

== ENCOUNTER 2025-02-09 10:06 | Outpatient (CLI) | payer BC, MEDICAID, SELFPAY ==
[2025-02-09 10:18] VITALS: RESP 18; TEMP 37.1
[2025-02-09 10:24] VITALS: BP 108/59; PULSE 93
[2025-02-09 10:36] VITALS: PULSE 88; O2SAT 97
[2025-02-09 10:46] VITALS: BP 116/63; PULSE 90
[2025-02-09 10:57] LABS: Hematocrit 31.6 % (33.0-51.0); Hemoglobin* 10.5 gm/dL (12.0-16.0); Mean Corpuscular HGB Conc 33 gm/dL (32-36); Mean Corpuscular Hemoglobin 27 pg (26-34); Mean Corpuscular Volume 80 fL (80-100); Platelet Count* 293 K/uL (140-440); Red Blood Count 3.93 m/uL (4.00-5.20)
[2025-02-09 11:01] LABS: Slide Review Reflex No
--- OUTSIDE RECORDS SUMMARY | 2025-02-09 11:02 | XMS_ITS | Clinical Summary ---
Author Organization [facility] Address [address] [place] [address] Care Team Providers Care Sr. Manager Marketing Name Role Phone Kaitlin Hunter MD Primary Care Provider [phone] Serena Temple MD Unavailable [phone] Allergies Active Allergy Reactions Criticality Noted Date Comments Ibuprofen Swelling, lips/tongue,Rash High 6 Kiwi Hives Medium 10/08/2021 Medications levonorgestreL (MIRENA) 20 mcg/24 hours (6 yrs) 52 mg IU IUD 1 Device by Intrauterine route ONCE. Active Mth-Me Blue-Sod Fffg-JiGqb-Aps (URIBEL) 118-10-40.8-36 mg oral Cap Take 1 [...] (10/22/2021): Added automatically from request for surgery [id number] JUAN PABLO (obstructive sleep apnea) 10/01/2021 Overview [...] Sex Assigned at Female 07/02/2021 11:07 AM TARIFF SUPERVISOR Legal Sex Female 4:50 PM CDT Gender Identity Female 07/02/2021 11:07 AM TARIFF SUPERVISOR Sexual Orientation Bisexual 07/02/2021 11 :07 AM TARIFF SUPERVISOR Last Filed Vital Signs Vital Sign [...] PM CDT) Case Report Pap Smear Case: [id number] Authorizing Provider: Georgina Metzger PA-C Collected: 04/30/2020 06:28 PM Ordering Location: [facility] - Received: 05/01/2020 05:56 PM [facility] First Screen: Sumi Myrick Specimen: Cervical Thin Prep (HPV Reflex) Senior Power Scheduler Screen, Cervix 05/05/2020 3:37 PM CDT [facility] Interpretation Negative for intraepithelial lesion or malignant cells. 05/05/2020 3:37 PM CDT [facility] at 1537 CDT Specimen Adequacy Satisfactory for evaluation. Endocervical/trans formation zone component absent. 05/05/2020 3:37 PM CDT [facility] LMP 04/30/2020 05/05/2020 3:37 PM CDT [facility] Pap Disclaimer This specimen was screened by the [facility] prior to manual review by a psychologist educational and/or pathologist. The Pap test is a [...] 17 (5): S2-S27 05/05/2020 3:37 PM CDT [facility] Vaginal and cervical cytologic material (specimen) CERVIX UTERI STRUCTURE / Unknown 04/30/2020 6:28 PM CDT 05/01/2020 5:56 PM CDT Comment:No LMP recorded. (Nv nstrual status: IUD). Georgina Metzger PA-C PATHOLOGY/CYTOLOGY ORDERABLE F inal Result Performing Organization Address City/[facility]/ZIP Co de Phone Number [facility] [address] [place] [address] * HEP C ANTIBODY (04/30/2020 5:54 PM CDT) Hepatitis C Antibody Non-Reacti ve Non-Reacti ve 05/01/2020 1:06 PM CDT [facility] Blood specimen (specimen) VENOUS BLOOD SPECIMEN / Unknown 04/30/2020 5:54 PM CDT 05/01/2020 11:44 AM CDT Georgina Metzger PA-C IMMUNOLOGY ORDERABLE Final Res ult Performing Organization Address City/[facility]/ZIP Co de Phone Number [facility] [address] [place] [address] from Last 3 Months or Most Recently Relevant to Health Maintenance Care Teams Sr. Manager Marketing Relationship Specialty [place] [address] [place] [address] [address] [address] PCP - General Family Medicine 10/23/21 Serena Temple MD [address] [place] [address] [facility] 10/23/21
--- OUTSIDE RECORDS SUMMARY | 2025-02-09 11:02 | XMS_ITS | Clinical Summary ---
Author Organization [facility] Address [address] [place] [address] Care Team Providers Care Senior Executive Assistant Name Role Phone Elsewhere, Pcp Primary Care Provider Unavailabl e Source Comments Patient records contain information from all sites at [facility]. For routine questions regarding patient records, call [phone] during business hours, M-F 8:00 AM - 5:00 PM Central Time. Record requests for emergency care only can be directed to [phone] at any time.[facility] Allergies Active Allergy Reactions Criticality Noted Date [...] pur e alcohol) QUIT 2 YEARS AGO Hunger Vital Sign Answer Date Recorded Within the past 12 months, y ou worried that your food would run out before you got the money to buy more. Never true 07/27/20 23 Within the past 12 months, t he [...] things needed for daily living? No 07/27/2023 Housing Stability Answer Date Recorded What is your living situation today? I have a [facility] place to live 07/27/2023 Comments Unknown Sex and Gender Information Value Date Recorded Sex Assigned at Female 07/27/2023 7:49 AM ELECTROLYSIS ENGINEER Legal Sex Female 10:27 AM ELECTROLYSIS ENGINEER Gender Identity Female 07/27/2023 7:49 AM ELECTROLYSIS ENGINEER Sexual Orientation Bisexual 07/27/2023 7: 49 AM ELECTROLYSIS ENGINEER Last Filed Vital Signs Vital Sign Reading Time Taken Comments Blood Pressure 116/72 06/01/2024 5:30 PM CDT Pulse 85 06/01/2024 5:30 PM CDT Temperature 36.1 C (97 F) 09/05/2023 1:32 PM ELECTROLYSIS ENGINEER Respiratory Rate 28 06/01/2024 5:30 PM CDT [...] this topic Medical Devices Implanted Type Area Lockstitch Back Maker Device Identifier Shelf Expiration Date Model / Serial / Lot Hardware E.G. Pins/Screws/Milo s Hardware e.g. pins/screws/milo s Right: Arm Intrauterine Device Intrauterine Device Uterus Description:[facility] Insurance [facility] Care Teams Senior Executive Assistant Relationship Specialty Start Date End Date Elsewhere, Pcp PCP - General Internal Medicine 03/01/24
--- OUTSIDE RECORDS SUMMARY | 2025-02-09 11:02 | XMS_ITS | Clinical Summary ---
Author Organization [facility] Address [address] [place] [address]. [place] [address] Care Team Providers Care High Frequency Mill Operator Name Role Phone Daisy Beebe PA-C Unavailable [phone] System, Provider Not In Primary Care Provider [...] Description 11/15/2024 2:00 PM CDT Office Visit [facility] [place] [id number] [facility] [address] [place] [address] Angely Stevens PA-C Insertional Achilles [...] on file Legal Sex Female 4:15 AM CIVIL TECHNICIAN Gender Identity Not on file Sexual Orientation [...] 10/23/2021, 04/30/2020 PAP 05/23/2026 05/23/2023, 04/30/2020 DTAP/TDAP/TD VACCINE (9 - Td or Tdap) 05/17/2033 05/17/2023, 10/14/2020, 04/10/2013, Additional history exists ZOSTER VACCINE (1 of 2) 2043 HEPATITIS B VACCINE Completed 01/18/1995, 01/18/1995, 1993, Additional history exists HPV VACCINE Completed 10/31/2008, 10/2007, 04/04/2008 MENINGITIS VACCINE Completed 04/14/2011 HIV SCREENING Completed 10/18/2016 HEPATITIS C SCREENING Completed 04/30/2020, 015 COVID-19 VACCINE Completed 05/30/2024, 06/2023, 09/25/2021, Additional history exists INFLUENZA VACCINE Completed 05/30/2024, , 05/15/2021, Additional history exists PNEUMOCOCCAL VACCINE: PEDIATRICS (0 to 5 YEARS) AND AT-RISK PATIENTS (6 to 49 YEARS) Aged Out No longer eligible based on patient's age to complete this topic Insurance BCBS OUT OF STATE MEDICAID [place] Care Teams High Frequency Mill Operator Relationship Specialty Start Date End Date System, Provider Not In PCP - General Clinic 02/19/23 Daisy Beebe PA-C [address] [facility] [address] [place] [address] Assigned PCP 08/25/22 Nilam Beal MD [address] [facility] [address] [place], [place] [address] Cardiovascular Disease 02/21/23
--- OUTSIDE RECORDS SUMMARY | 2025-02-09 11:03 | XMS_ITS | Patient Health Record ---
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
--- OUTSIDE RECORDS SUMMARY | 2025-02-09 11:03 | XMS_ITS | Encounter Summary ---
Author Organization [facility] Address [address], [place] [address] Care Team Providers Care Senior Dynamics Crm Developer Name Role Phone Needs Pcp, Assignment Primary Care Provider [phone] Encounter Details Date Type Department Care Team [...] on filedocumented in this encounter Care Teams Senior Dynamics Crm Developer Relationship Specialty Start Date End Date Needs Pcp, [facility] [place], [place] [address] PCP - General 02/01/18 documented as of this encounter
--- OUTSIDE RECORDS SUMMARY | 2025-02-09 11:03 | XMS_ITS | Referral Summary ---
Author Organization [facility] Address [address] [place] [address] Care Team Providers Care Professor Of Medicine Name Role Phone Kaitlin Hunter MD Primary Care Provider [phone] Serena Temple MD Unavailable [phone] Allergies Active Allergy Reactions Criticality Noted Date Comments Ibuprofen Swelling, lips/tongue,Rash High 6 Kiwi Hives Medium 10/08/2021 Medications levonorgestreL (MIRENA) 20 mcg/24 hours (6 yrs) 52 mg IU IUD 1 Device by Intrauterine route ONCE. Active Mth-Me Blue-Sod Adnu-QcJwl-Tah (URIBEL) 118-10-40.8-36 mg oral Cap Take 1 tablet by mouth. 2 Active Tubing and Mask for CPAPIndications :JUAN PABLO (obstructive sleep apnea) 1 each by Mis.(Non-Drug; Combo Route) route as directed. 1 each [...] (10/22/2021): Added automatically from request for surgery [id number] JUAN PABLO (obstructive sleep apnea) 10/01/2021 Overview [...] Sex Assigned at Female 07/02/2021 11:07 AM ROLL BUCKER Legal Sex Female 4:50 PM CDT Gender Identity Female 07/02/2021 11:07 AM ROLL BUCKER Sexual Orientation Bisexual 07/02/2021 11 :07 AM ROLL BUCKER Last Filed Vital Signs Vital Sign Reading [...] PM CDT) Case Report Pap Smear Case: [id number] Authorizing Provider: Georgina Metzger PA-C Collected: 04/30/2020 06:28 PM Ordering Location: [facility] - Received: 05/01/2020 05:56 PM [facility] First Screen: Sumi Myrick Specimen: Cervical Thin Prep (HPV Reflex) Immigration Officer Screen, Cervix 05/05/2020 3:37 PM CDT [facility] Interpretation Negative for intraepithelial lesion or malignant cells. 05/05/2020 3:37 PM CDT [facility] at 1537 CDT Specimen Adequacy Satisfactory for evaluation. Endocervical/trans formation zone component absent. 05/05/2020 3:37 PM CDT [facility] LMP 04/30/2020 05/05/2020 3:37 PM CDT [facility] Pap Disclaimer This specimen was screened by the [facility] System prior to manual review by a survival equipment repairer and/or pathologist. The Pap test is a [...] 17 (5): S2-S27 05/05/2020 3:37 PM CDT [facility] Vaginal and cervical cytologic material (specimen) CERVIX UTERI STRUCTURE / Unknown 04/30/2020 6:28 PM CDT 05/01/2020 5:56 PM CDT Comment:No LMP recorded. (Ri nstrual status: IUD). Georgina Metzger PA-C PATHOLOGY/CYTOLOGY ORDERABLE F inal Result [facility] [address] [place] [address] * HEP C ANTIBODY (04/30/2020 5:54 PM CDT) Hepatitis C Antibody Non-Reacti ve Non-Reacti ve 05/01/2020 1:06 PM CDT [facility] Blood specimen (specimen) VENOUS BLOOD SPECIMEN / Unknown 04/30/2020 5:54 PM CDT 05/01/2020 11:44 AM CDT Georgina Metzger PA-C IMMUNOLOGY ORDERABLE Final Res ult [facility] [address] [place] [address] from Last 3 Months or Most Recently Relevant to Health Maintenance Care Teams Professor Of Medicine Relationship Specialty Start Date End Date Kaitlin Hunter MD [address] [facility] [address] [address] PCP - General Family Medicine 10/23/21 Serena Temple MD [address] [facility] [address] [place] [address] Neurology 10/23/21
--- OUTSIDE RECORDS SUMMARY | 2025-02-09 11:03 | XMS_ITS | Clinical Summary ---
Author Organization [facility] [employer] [facility] Address [address] [address] Phone Care Team Providers Care Classified Advertising Supervisor Name Role Phone Joanne Ramsey APRN, HOT AIR FURNACE INSTALLER REPAIRER Unavailable Luisana Cuevas MD Primary Care Provider [phone] Allergies Active Allergy Reactions Criticality Noted Date [...] PM CDT Legal Sex Female 11:06 PM SHELL TRIM TOOL SETTER Gender Identity Female 11/08/2022 6:00 PM CDT [...] to complete this topic Insurance BLUE PLUS [facility] Address: [facility] [id number] [place] [phone] Advance Directives For more information, please contact: [phone] * Full Code (Latest Code Status on File) Date Activated Date Inactivated Comments 11/08/2022 6:25 PM 11/11/2022 4:46 PM Care Teams Classified Advertising Supervisor Relationship Specialty Start Date End Date Luisana Cuevas MD [address] [address] PCP - General sales counselor 03/28/23 Joanne Ramsey, ASSET PROTECTION SPECIALIST, HOT AIR FURNACE INSTALLER REPAIRER [address] [place] [phone] Nurse Practitioner Psychiatry 11/15/22
--- OUTSIDE RECORDS SUMMARY | 2025-02-09 11:03 | XMS_ITS | Encounter Summary ---
Author Organization [facility] Address [address] [place] [address] Care Team Providers Care Color Making Supervisor Name Role Phone Needs Pcp, Assignment Primary Care Provider [phone] Encounter Details Date Type Department Care Team (Late st Contact Info) Description 06/08/2017 Scanned History External to External, [place] [address] [facility]- RECORDS Social History Tobacco Use Types Packs/Day [...] on filedocumented in this encounter Care Teams Color Making Supervisor Relationship Specialty Start Date End Date Needs Pcp, Assignment [place], [place] [address] PCP - General 02/01/18 documented as of this encounter
--- OUTSIDE RECORDS SUMMARY | 2025-02-09 11:03 | XMS_ITS | Encounter Summary ---
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
--- OUTSIDE RECORDS SUMMARY | 2025-02-09 11:03 | XMS_ITS | Clinical Summary ---
Author Organization [employer] Address [address] [place] [address] Care Team Providers Care Underwater Welder Name Role Phone Светлана Malik Primary Care Provider [phone] Allergies Active Allergy Reactions Criticality Noted Date [...] daily. 30 Tablet 3 04/30/20 24 Active ondansetron (ZOFRAN ODT) 4 mg [...] 12/07/19 25 Active labetaloL 100 mg tabletIndications: Palpitations,Sinus tachycardia Take 1 Tablet (100 mg) by mouth two times daily. 180 Tablet 1 01/31/20 25 Active metoprolol succinate (TOPROL XL) 50 mg sustained-release tabletIndications: Palpitations,Sinus tachycardia Take 1 Tablet (50 mg) by mouth once daily. 90 Tablet 1 05/30/20 24 025 Discontin ued(*Medi cation adjustmen t) labetaloL 100 mg tabletIndications: Sinus tachycardia,Palpit ations Take 1 Tablet (100 mg) by mouth two times daily. 30 Tablet 1 12/25/19 25 025 Discontin ued(Reord er (E-cancel not sent)) Active Problems Problem Noted Date Diagnosed Date Bipolar affective disorder, remission status uns pecified 09/05/2024 MPP, Encounter for preconception consultation Overview (08/07/2024): Kami R Sheets : 1995 [facility] PRECONCEPTION CONSULTATION ON REFERRING PHYSICIAN/CLINIC LOCATION/FAX #/LAST UPDATE: Underwater Welder Role and Specialty Contact Info Address Start End Comments Светлана Malik DO General (Family Practice) [address] [facility] [address] 05/24/2023 - - Primary MD approves scheduling of recommended ultrasounds/testing: Yes REASON FOR CONSULT: currently on zepbound, would like within a year , BMI 44 , Hx of cerebral aneurysm 06/2023- follows at [facility] - Care Everywhere TODAY'S APPOINTMENT: MD Consultation PRIMARY DIAGNOSIS: 29 y.o. Anxiety, depression 2016 C/S BMI 44 SPECIALISTS/CONSULTS: Dr Naun Lama Neurology at [facility] - 03/05/24 Include: Specialty MD Clinic Name Phone# [place] and ADDED TO PATIENT CARE TEAM GENETICS: to be added to appointment PROCEDURES: PERTINENT LABS: PERTINENT MEDS: Zepbound Celexa Klonopin Janina Russell MD PLAN OF CARE: Generalized hypermobility of joints [...] from 06/26/2023; following with neurology at [facility] - Visit 03/05/24, stated f/u was only [...] currently taking Effexor and managed by Psychiatrist ([facility]) -Obese BMI is 42 with HgbA1c is normal (5.0) on 10/19/16 (7wks) LAST PAP SMEAR: 05/2016 Tobacco abuse 06/18/2015 05/23/2023 Tobacco use disorder 06/18/2015 023 Encounters Date Type Department Care Team Description 12/24/2024 Nurse Triage [facility] [address] [place] [address] Gloria Benavidez RN Fast Heartbeat 12/06/2024 9:35 AM CDT Office Visit [facility] [address] [place] [address] Светлана Malik, Medication Management (metoprolol) 12/06/2024 Travel 12/02/2024 1:39 PM CDT - 12/02/2024 3:35 PM CDT Emergency [facility] [address] [place] [address] JenniferBrie PA Abdominal cramping (Primary Dx); with history of miscarriage, first trimester (HC) Discharge Disposition: Home Self Care 11/15/2024 8:21 AM CDT - 11/15/2024 11:59 PM CDT Hospital Encounter [facility] [address] [address] Светлана Malik, Positive test (HC) 11/15/2024 Travel from Last 3 Months Immunizations [...] on file Legal Sex Female 7:12 AM MATERIALS AND PROCESSES MANAGER Gender Identity Not on file Sexual Orientation Not on file Occupation Industry Job Start Date Job End Date works in [employer] Not on file Not on file Not [...] g 3 6 SHEETS ,BABYB OY ABIGAI Shorty Bonilla MD Complications: Intolera nce,Dysfunctional Labor Delivery Location:[facility] Current Summary Episode Dates Number of Fetuses Estimated Date of Delivery 12/06/2024 - Present (02/09/2025) 06/30/2025 (set by Soniya Kennedy RN on 12/06/2024 based on Alternate JENY [...] alone Communication Method: Patient is active on [employer] and has been instructed that results/communications will be made via [employer] If a phone call is needed, the [...] 100 bpm. Referral to cardio-obstetrics program at [place] could be considered if adequate control is not achieved. - anticipate that HR will increase physiologically with changes 3. 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 - Symptoms include itchy, flaky skin on the bottom of the foot, suggesting tinea pedis - Previous treatments with [id number] antifungal spray and cream were ineffective. - will trial topical ketoconazole 2% BID x 4 weeks. If symptoms fail to improve, encouraged follow up. 31 minutes spent in chart review, [id number] with patient, and documentation on day of [...] 05/17/2023, 09/23, 04/10/2013, Additional history exists Hepatitis B series for 19+ Completed 01/18, 01/18/1995, 1993, Additional history exists Hepatitis C screening for age 18-79 Completed 06/16/2015 HIV for age 15-65 Completed 10/18/2016, 06/16/2015 Tdap Completed 05/17/2023, 03/23, 04/10/2013 ([facility] COVID-19 vaccine series Completed 05/30/20, 06/01/2023, [...] 11/15/2024 9:02 AM CDT Positive test (HC) HPV HIGH RISK Routine 05/23/2023 5:02 PM CDT Screening for malignant neoplasm of cervix ANTI HIV 1/2 Routine 10/18/2016 2:13 PM MATERIALS AND PROCESSES MANAGER Encounter for supervision of normal first in [...] For Patients: As a result of the Century Cures Act, medical imaging exams and procedure [...] TA AND TV LOCATION: [facility] DATE: 12/02/2024 INDICATION: Cramping, history of miscarriage. [...] : <5 mIU/mL 12/02/2024 3:13 PM CDT [facility] Blood BLOOD SPECIMEN / Unknown Non-Lab Venipuncture / Unknown 12/02/2024 1:52 PM CDT 12/02/2024 2:05 PM CDT Narrative [facility] - 12/02/2024 3:13 PM CDT Expected Value for Healthy Non- premenopausal women <5mIU/mL FOR GESTATIONAL ASSESSMENT-See Range Table Below Weeks Post LMP Approximate HCG Range: (Last Menstrual Period) 3-4 Weeks (9-130) 4-5 Weeks (75-2600) 5-6 Weeks (850-51311) 6-7 Weeks (4000-908167) 7-12 Weeks (80266-349825) 12-16 Weeks (62720-015954) 16-29 Weeks (1400-10567) 29-41 Weeks (940-91707) Expected Value for Healthy Non- premenopausal women <5mIU/mL FOR GESTATIONAL ASSESSMENT-See Range Table Below Weeks Post LMP Approximate HCG Range: (Last Menstrual Period) 3-4 Weeks (9-130) 4-5 Weeks (75-2600) 5-6 Weeks (850-31123) 6-7 Weeks (4000-198724) 7-12 Weeks (86550-272941) 12-16 Weeks (23259-249460) 16-29 Weeks (1400-34602) 29-41 Weeks ([phone]) us Sedrick Lebron MD CHEMISTRY Final Result Performing Organization Address [facility]/ZIP Co de Phone Number [address] [address] * HPV HIGH RISK (05/23/2023 5:02 PM CDT) TYPE 16 Negative Negative 05/27/2023 1:16 PM CDT [facility] TYPE 18 Negative Negative 05/27/2023 1:16 PM CDT [facility] OTHER HIGH RISK TYPES Negative Negative 05/27/2023 1:16 PM CDT [facility] Other (Cervical) Non-Blood / Unknown 05/23/2023 5:02 PM CDT 05/24/2023 5:02 PM CDT [facility] - 05/27/2023 1:16 PM CDT HPV types 16, 18, 31, 33, 35, 39, 45, 51, 52, 56, 58, 59, 66 and 68 DNA were undetectable or below the pre-set threshold. Methodology: Steve Nikki 4800 HPV Test us Светлана Malik DO MICROBIOLOGY Final Resu lt [facility] [address] [place] [address], [place] * ANTI HIV 1/2 (10/18/2016 2:13 PM MATERIALS AND PROCESSES MANAGER) HIV-1/HIV-2 ANTIBODY Non-Reacti ve Non-Reacti ve 10/18/2016 6:20 PM MATERIALS AND PROCESSES MANAGER [facility] Blood BLOOD SPECIMEN / Unknown Venipuncture / Unknown 10/18/2016 2:13 PM MATERIALS AND PROCESSES MANAGER 10/18/2016 2:13 PM MATERIALS AND PROCESSES MANAGER Narrative [facility] - 10/18/2016 6:20 PM MATERIALS AND PROCESSES MANAGER HIV-1 p24 and HIV-1/HIV-2 Ab not detected Senait Curtis MD UROLOGIST SEND OUTS Final Res ult [facility] [address] [place] [address], * ANTI HCV (06/16/2015 10:49 AM CDT) HEPATITIS C ANTIBODY Non-Reacti ve Non-Reacti ve 06/16/2015 5:48 PM CDT [facility] Blood specimen (specimen) BLOOD SPECIMEN / Unknown Venipuncture / Unknown 06/16/2015 10:49 AM CDT 06/16/2015 10:50 AM CDT Narrative [facility] - 06/16/2015 5:48 PM CDT Antibodies to HCV not detected; does not exclude the possibility of exposure to HCV. Rachel Monet DO SEND OUTS Julianna l Result [facility] [address] [place] [address], from Last 3 Months or Most Recently Relevant to Health Maintenance [place] [address] [place] [address] CROSS OF NON-CT-ITS BLUE CROSS OF NON-CT-ITS MEDICAID Care Teams Underwater Welder Relationship Specialty Start Date End Date Светлана Malik DO [address] [place] [address] PCP - General Family Practice 05/24/23
--- OUTSIDE RECORDS SUMMARY | 2025-02-09 11:03 | XMS_ITS | Encounter Summary ---
Author Organization [facility] Address [address] [place] [address] Care Team Providers Care Weight And Balance Control Agent Name Role Phone Kaitlin Hunter MD Primary Care Provider [phone] Serena Temple MD Unavailable [phone] Encounter Details Date Type Department Care Team (Latest Contact Info) Description 10/16/2021 Prep For Procedure [facility] [place] [address] [facility] [address] [place], [place] [id number] [place] [address] [place] [address] [address] [place], [place] [id number] Syncope, unspecified syncope type (Primary Dx) Social [...] Sex Assigned at Female 07/02/2021 11:07 AM HEALTH TECHNICIAN Legal Sex Female 4:50 PM CDT Gender Identity Female 07/02/2021 11:07 AM HEALTH TECHNICIAN Sexual Orientation Bisexual 07/02/2021 11 :07 AM HEALTH TECHNICIAN COVID-19 Exposure Response Date Recorded In the last month, have you been in contact with someone who was confirmed or suspected to have Coronavirus / COVID-19? No / Unsure 10/19/2021 1:16 PM HEALTH TECHNICIAN documented as of this encounter Plan of Treatment Not on file documented as of this encounter Visit Diagnoses Diagnosis Syncope, unspecified syncope type- Primary documented in this encounter Additional Health Concerns Infection Onset Date Last Indicated Resolved Time COVID-19 01/27/2022 01/27/2022 02/26/2022 2:49 AM CDT documented as of this encounter Care Teams Weight And Balance Control Agent Relationship Specialty Start Date End Date Kaitlin Hunter MD [address] [place] [address] PCP - General Family Medicine 10/23/21 Serena Temple MD [address] [place] [address] [place] [address] Neurology 10/23/21 documented as of this encounter
--- OUTSIDE RECORDS SUMMARY | 2025-02-09 11:03 | XMS_ITS | Clinical Summary ---
Author Organization [facility] Address [address] [place] [address] Care Team Providers Care Sales Representative Education Courses Name Role Phone Needs Pcp, Assignment Primary Care Provider [phone] Source Comments You are receiving this document as you are listed as the primary care provider,follow-up provider, or the patient has been referred to you for consultation.This is in compliance with the Medicare and[facility] EHR Incentive Program,which states Providers who transition their patient to another setting of careor provider of care or refers their patient to another provider of care shouldprovide summary care record for each transition of care or referral. 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
[2025-02-09 11:12] LABS: Alanine Aminotransferase* 17 U/L (4-35); Aspartate Amino Transferase* 23 U/L (12-35); Blood Urea Nitrogen* 6 mg/dL (5-24); Creatinine* 0.5 mg/dL (0.5-1.5); Estimated Glomerular Filt Rate 129 ml/min
[2025-02-09] MEDS: ACETAMINOPHEN 500 MG TABLET 1000 MG PO (11:20)
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
[2025-02-09 11:46] LABS: Total Protein Urine 13 mg/dL
[2025-02-09 11:47] LABS: Creatinine Urine 61.3 mg/dL; Protein Creatinine Ratio Urine 0.21 (0-0.19)
[2025-02-11 11:49] LABS: Total Protein Urine 15 mg/dL
[2025-02-11 11:50] LABS: Creatinine Urine 50.9 mg/dL; Protein Creatinine Ratio Urine 0.29 (0-0.19)
[2025-02-11 11:56] LABS: Collection Time Urine 24 Hours; Total Protein 24 Hour Urine 487.5 mg/Day; Total Volume 24 Hour Urine 3250 ml; Urine Creatinine mg/24 Hour 1654 mg/Day
== END 2025-02-09 12:35 | disposition home or self-care (01) ==
LOC: OB OUT 10:07 → OB 10:09
PROVIDERS: PCP Family Medicine; Visit Provider Obstetrics & Gynecology
DX: O26.892 Other specified pregnancy related conditions, second trimester (principal); R03.0 Elevated blood-pressure reading, without diagnosis of hypertension; R51.9 Headache, unspecified; Z3A.19 19 weeks gestation of pregnancy
CPT/HCPCS: 36415; 82565; 82570; 84156; 84450; 84460; 84520; 85027; G0463; A9270

== ENCOUNTER 2025-02-13 07:24 | Outpatient (CLI) | payer BC, MEDICAID, SELFPAY ==
--- OUTSIDE RECORDS SUMMARY | 2025-02-14 00:34 | XMS_ITS | Referral Summary ---
Author Organization [facility] Address [address] [place] [address] Care Team Providers Care Doweler Name Role Phone Kaitlin Hunter MD Primary Care Provider [phone] Serena Temple MD Unavailable [phone] Allergies Active Allergy Reactions Criticality Noted Date Comments Ibuprofen Swelling, lips/tongue,Rash High 6 Kiwi Hives Medium 10/08/2021 Medications levonorgestreL (MIRENA) 20 mcg/24 hours (6 yrs) 52 mg IU IUD 1 Device by Intrauterine route ONCE. Active Mth-Me Blue-Sod Ipuh-CoKxd-Auw (URIBEL) 118-10-40.8-36 mg oral Cap Take 1 [...] (10/22/2021): Added automatically from request for surgery [id number] JUAN PABLO (obstructive sleep apnea) 10/01/2021 Overview [...] Sex Assigned at Female 07/02/2021 11:07 AM WATER MANAGER Legal Sex Female 4:50 PM CDT Gender Identity Female 07/02/2021 11:07 AM WATER MANAGER Sexual Orientation Bisexual 07/02/2021 11 :07 AM WATER MANAGER Last Filed Vital Signs Vital Sign [...] PM CDT) Case Report Pap Smear Case: [id number] Authorizing Provider: Georgina Metzger PA-C Collected: 04/30/2020 06:28 PM Ordering Location: [facility] - Received: 05/01/2020 05:56 PM [facility] First Screen: Sumi Myrick Specimen: Cervical Thin Prep (HPV Reflex) Speech Language Pathologist Assistant Screen, Cervix 05/05/2020 3:37 PM CDT [facility] Interpretation Negative for intraepithelial lesion or malignant cells. 05/05/2020 3:37 PM CDT [facility] at 1537 CDT Specimen Adequacy Satisfactory for evaluation. Endocervical/trans formation zone component absent. 05/05/2020 3:37 PM CDT [facility] LMP 04/30/2020 05/05/2020 3:37 PM CDT [facility] Pap Disclaimer This specimen was screened by the ThinPrep Imaging System prior to manual review by a burial vault setter and/or pathologist. The Pap test is a [...] 17 (5): S2-S27 05/05/2020 3:37 PM CDT [facility] Vaginal and cervical cytologic material (specimen) CERVIX UTERI STRUCTURE / Unknown 04/30/2020 6:28 PM CDT 05/01/2020 5:56 PM CDT Comment:No LMP recorded. (Ne nstrual status: IUD). Georgina Metzger PA-C PATHOLOGY/CYTOLOGY ORDERABLE F inal Result [facility] [address] [place] [address] * HEP C ANTIBODY (04/30/2020 5:54 PM CDT) Hepatitis C Antibody Non-Reacti ve Non-Reacti ve 05/01/2020 1:06 PM CDT [facility] Blood specimen (specimen) VENOUS BLOOD SPECIMEN / Unknown 04/30/2020 5:54 PM CDT 05/01/2020 11:44 AM CDT Georgina Metzger PA-C IMMUNOLOGY ORDERABLE Final Res ult [facility] [address] [place] [address] from Last 3 Months or Most Recently Relevant to Health Maintenance Care Teams Doweler Relationship Specialty Start Date End Date Kaitlin Hunter MD [address] [facility] [address] [place] [address] PCP - General Family Medicine 10/23/21 Serena Temple MD [address] [facility] [address] [place] [address] Neurology 10/23/21
--- OUTSIDE RECORDS SUMMARY | 2025-02-14 00:34 | XMS_ITS | Clinical Summary ---
Author Organization [facility] Address [address] [place] [address] Care Team Providers Care Small Animal Veterinarian Name Role Phone Elsewhere, Pcp Primary Care Provider Unavailabl e Source Comments Patient records contain information from all sites at [facility]. For routine questions regarding patient records, call [phone] during business hours, M-F 8:00 AM - 5:00 PM Central Time. Record requests for emergency care only can be directed to [phone] at any time.[facility] Allergies Active Allergy Reactions Criticality Noted Date [...] your living situation today? I have a [facility] place to live 07/27/2023 Comments Unknown Sex and Gender Information Value Date Recorded Sex Assigned at Female 07/27/2023 7:49 AM PAINT GRINDER STONE MILL Legal Sex Female 10:27 AM PAINT GRINDER STONE MILL Gender Identity Female 07/27/2023 7:49 AM PAINT GRINDER STONE MILL Sexual Orientation Bisexual 07/27/2023 7: 49 AM PAINT GRINDER STONE MILL Last Filed Vital Signs Vital Sign Reading Time Taken Comments Blood Pressure 116/72 06/01/2024 5:30 PM CDT Pulse 85 06/01/2024 5:30 PM CDT Temperature 36.1 C (97 F) 09/05/2023 1:32 PM PAINT GRINDER [employer] MILL Respiratory Rate 28 06/01/2024 5:30 PM CDT [...] this topic Medical Devices Implanted Type Area Block Cuber Device Identifier Shelf Expiration Date Model / Serial / Lot Hardware E.G. Pins/Screws/Milo s Hardware e.g. pins/screws/milo s Right: Arm Intrauterine Device Intrauterine Device Uterus Description:[facility] Insurance [facility] Care Teams Small Animal Veterinarian Relationship Specialty Start Date End Date Elsewhere, Pcp PCP - General Internal Medicine 03/01/24
--- OUTSIDE RECORDS SUMMARY | 2025-02-14 00:34 | XMS_ITS | Clinical Summary ---
Author Organization [facility] Address [address] [address] Phone Care Team Providers Care Health Policy Manager Name Role Phone Joanne Ramsey APRN, FEED IN WORKER Unavailable Luisana Cuevas MD Primary Care Provider [phone] Allergies Active Allergy Reactions Criticality Noted Date [...] History Date Comments Anxiety 08/22/2001 Formatting of th is note might be different from the original. Ativan PRN Depression 08/22/2001 Formatting of th is note might be different from the [...] PM CDT Legal Sex Female 11:06 PM AD OPERATIONS INTERN Gender Identity Female 11/08/2022 6:00 PM CDT [...] to complete this topic Insurance BLUE PLUS [facility] Advance Directives For more information, please contact: [phone] * Full Code (Latest Code Status on File) Date Activated Date Inactivated Comments 11/08/2022 6:25 PM 11/11/2022 4:46 PM Care Teams Health Policy Manager Relationship Specialty Start Date End Date Luisana Cuevas MD [address] [id number] PCP - General student education specialist 03/28/23 Joanne Ramsey, AUXILIARY ENGINEER, FEED IN WORKER [address] [place] [phone] Nurse Practitioner Psychiatry 11/15/22
--- OUTSIDE RECORDS SUMMARY | 2025-02-14 00:34 | XMS_ITS | Clinical Summary ---
Author Organization [facility] Address [address] [place] [address] Care Team Providers Care Route Returner Name Role Phone Kaitlin Hunter MD Primary Care Provider [phone] Serena Temple MD Unavailable [phone] Allergies Active Allergy Reactions Criticality Noted Date Comments Ibuprofen Swelling, lips/tongue,Rash High 6 Kiwi Hives Medium 10/08/2021 Medications levonorgestreL (MIRENA) 20 mcg/24 hours (6 yrs) 52 mg IU IUD 1 Device by Intrauterine route ONCE. Active Mth-Me Blue-Sod Pauj-UmNob-Tnr (URIBEL) 118-10-40.8-36 mg oral Cap Take 1 [...] (10/22/2021): Added automatically from request for surgery [id number] JUAN PABLO (obstructive sleep apnea) 10/01/2021 Overview [...] Sex Assigned at Female 07/02/2021 11:07 AM AUDIO PRODUCTION ENGINEER Legal Sex Female 4:50 PM CDT Gender Identity Female 07/02/2021 11:07 AM AUDIO PRODUCTION ENGINEER Sexual Orientation Bisexual 07/02/2021 11 :07 AM AUDIO PRODUCTION ENGINEER Last Filed Vital Signs Vital Sign [...] PM CDT) Case Report Pap Smear Case: [id number] Authorizing Provider: Georgina Metzger PA-C Collected: 04/30/2020 06:28 PM Ordering Location: [facility] - Received: 05/01/2020 05:56 PM [facility] First Screen: Sumi Myrick Specimen: Cervical Thin Prep (HPV Reflex) Waiter/Waitress Dining Car Screen, Cervix 05/05/2020 3:37 PM CDT [facility] Interpretation Negative for intraepithelial lesion or malignant cells. 05/05/2020 3:37 PM CDT [facility] at 1537 CDT Specimen Adequacy Satisfactory for evaluation. Endocervical/trans formation zone component absent. 05/05/2020 3:37 PM CDT [facility] LMP 04/30/2020 05/05/2020 3:37 PM CDT [facility] Pap Disclaimer This specimen was screened by the Toppr Imaging System prior to manual review by a transfer iron operator and/or pathologist. The Pap test is a screening test and has an irreducible false-negative rate. Routine periodic testing and follow-up of unexplained clinical signs and symptoms are important to minimize the consequence of false-negative Pap tests. Brysno et al. 2012 Updated Consensus Guidelines for the Management of Abnormal Cervical Cancer Screening Tests and Cancer Precursors. J Low Genit Tract Dis 2013; 17 (5): S2-S27 05/05/2020 3:37 PM CDT [facility] Vaginal and cervical cytologic material (specimen) CERVIX UTERI STRUCTURE / Unknown 04/30/2020 6:28 PM CDT 05/01/2020 5:56 PM CDT Comment:No LMP recorded. (Mo nstrual status: IUD). Georgina Metzger PA-C PATHOLOGY/CYTOLOGY ORDERABLE F inal Result Performing Organization Address City/[facility]/ZIP Co de Phone Number [facility] [address] [place] [address] * HEP C ANTIBODY (04/30/2020 5:54 PM CDT) Hepatitis C Antibody Non-Reacti ve Non-Reacti ve 05/01/2020 1:06 PM CDT [facility] Blood specimen (specimen) VENOUS BLOOD SPECIMEN / Unknown 04/30/2020 5:54 PM CDT 05/01/2020 11:44 AM CDT Georgina Metzger PA-C IMMUNOLOGY ORDERABLE Final Res ult Performing Organization Address City/[facility]/ZIP Co de Phone Number [facility] [address] [place] [address] from Last 3 Months or Most Recently Relevant to Health Maintenance Care Teams Route Returner Relationship Specialty [place] [address] [place] [address] [address] [address] PCP - General Family Medicine 10/23/21 Serena Temple MD [address] [place] [address] [facility] 10/23/21
--- OUTSIDE RECORDS SUMMARY | 2025-02-14 00:34 | XMS_ITS | Clinical Summary ---
Author Organization [facility] Address [address] [place] [address]. [place] [address] Care Team Providers Care Security Guard Dispatcher Name Role Phone Daisy Beebe PA-C Unavailable [phone] System, Provider Not In Primary Care Provider [...] Description 11/15/2024 2:00 PM CDT Office Visit [facility] [place] [id number] [facility] [address] [place] [address] Angely [place] PA-C Insertional Achilles [...] on file Legal Sex Female 4:15 AM SPRAY DRIER OPERATOR Gender Identity Not on file Sexual [...] OUT OF STATE MEDICAID [place] Care Teams Security Guard Dispatcher Relationship Specialty Start Date End Date System, Provider Not In PCP - General Clinic 02/19/23 Daisy Beebe PA-C [address] [facility] [address] [place] [address] Assigned PCP 08/25/22 Nilam Beal MD [address] [facility] [address] [place], [place] [address] Cardiovascular Disease 02/21/23
--- OUTSIDE RECORDS SUMMARY | 2025-02-14 00:35 | XMS_ITS | Encounter Summary ---
Author Organization [facility] Address [address] [place] [address] Care Team Providers Care Residential Direct Support Professional Name Role Phone Kaitlin Hunter MD Primary Care Provider [phone] Serena Temple MD Unavailable [phone] Encounter Details Date Type Department Care Team (Latest Contact Info) Description 10/16/2021 Prep For Procedure [facility] [address] [facility] [address] [place], [place] [id number] [place] [address] [place] [address] [address] [place], [place] [id number] Syncope, unspecified syncope type (Primary Dx) Social [...] Sex Assigned at Female 07/02/2021 11:07 AM HEAD CONTROL CLERK Legal Sex Female 4:50 PM CDT Gender Identity Female 07/02/2021 11:07 AM HEAD CONTROL CLERK Sexual Orientation Bisexual 07/02/2021 11 :07 AM HEAD CONTROL CLERK COVID-19 Exposure Response Date Recorded In the last month, have you been in contact with someone who was confirmed or suspected to have Coronavirus / COVID-19? No / Unsure 10/19/2021 1:16 PM HEAD CONTROL CLERK documented as of this encounter Plan of Treatment Not on file documented as of this encounter Visit Diagnoses Diagnosis Syncope, unspecified syncope type- Primary documented in this encounter Additional Health Concerns Infection Onset Date Last Indicated Resolved Time COVID-19 01/27/2022 01/27/2022 02/26/2022 2:49 AM CDT documented as of this encounter Care Teams Residential Direct Support Professional Relationship Specialty Start Date End Date Kaitlin Hunter MD [address] [place] [address] PCP - General Family Medicine 10/23/21 Serena Temple MD [address] [place] [address] [place] [address] Neurology 10/23/21 documented as of this encounter
--- OUTSIDE RECORDS SUMMARY | 2025-02-14 00:35 | XMS_ITS | Encounter Summary ---
Author Organization [facility] Address [address], [place] [address] Care Team Providers Care Consultant Luxury And Auto. 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 Vice President [employer] (Ex ) Relationship Specialty Start Date End Date Needs Pcp, [place]ía [place] [address] PCP - General 02/01/18 documented as of this encounter
--- OUTSIDE RECORDS SUMMARY | 2025-02-14 00:35 | XMS_ITS | Patient Health Record ---
Author Organization [facility] Melvi Gonzáles at [facility] Address [address] [place] [address] [address] FLORES [address] [place], [place] [address] [address] Care Team Providers Care Burnisher And Bumper Name Role Phone VARGAS ADEN MD Primary [...] Problem Status W/U Status Risk Notes Problem 10521139 Heartburn (R12) Active confirmed Problem 49661175 Obstructive sleep apnea (adult) (pediatric) (G47.33) Active confirmed Problem 122858650 Dependence on other enabling machines and devices (Z99.89) Active confirmed Problem 988254476 Morbid (severe) obesity due to excess calories (E66.01) Active confirmed Problem 463791761 Low vitamin D level (R79.89) Active confirmed Problem 701941356 Body mass index [BMI] 45.0-49.9, adult (Z68.42) Active confirmed Plan Of Treatment No Information Insurance Providers Payer Name Payer Address Payer Phone Subscriber Number Group Number Insured Name Patient Relationship to Insured Coverage Start Date Coverage End Date BLUE PLUS PMAP [address] [address] [place] [phone] [id number] [facility], CARON Self - patient is the [...]
--- OUTSIDE RECORDS SUMMARY | 2025-02-14 00:35 | XMS_ITS | Clinical Summary ---
Author Organization [facility] Address [address] [place] [address] Care Team Providers Care Commercial Loan Closer Name Role Phone Светлана Malik Primary Care Provider [phone] Allergies Active Allergy Reactions Criticality Noted Date [...] CONSULTATION ON REFERRING PHYSICIAN/CLINIC LOCATION/FAX #/LAST UPDATE: Commercial Loan Closer Role and Specialty Contact Info Address Start End Comments Светлана Malik DO General (Family Practice) [address] [facility] [address] 05/24/2023 - - Primary MD approves scheduling of recommended ultrasounds/testing: Yes REASON FOR CONSULT: currently on zepbound, would like within a year , BMI 44 , Hx of cerebral aneurysm 06/2023- follows at [facility] - Care Everywhere TODAY'S APPOINTMENT: MD Consultation PRIMARY DIAGNOSIS: 29 y.o. Anxiety, depression 2016 C/S BMI 44 SPECIALISTS/CONSULTS: Dr Naun Lama Neurology at [facility] - 03/05/24 Include: Specialty MD Clinic Name [...] imaging from 06/26/2023; following with neurology at [facility] - Visit 03/05/24, stated f/u was [...] currently taking Effexor and managed by Psychiatrist ([facility]) -Obese BMI is 42 with HgbA1c is normal (5.0) on 10/19/16 (7wks) LAST PAP SMEAR: 05/2016 Tobacco abuse 06/18/2015 05/23/2023 Tobacco use disorder 06/18/2015 023 Encounters Date Type Department Care Team Description 12/24/2024 Nurse Triage [facility] [address] [place] [address] Gloria Benavidez RN Fast Heartbeat 12/06/2024 9:35 AM CDT Office Visit [facility] [address] [place] [address] Светлана Malik, Medication Management (metoprolol) 12/06/2024 Travel 12/02/2024 1:39 PM CDT - 12/02/2024 3:35 PM CDT Emergency [facility] [place] [address] [place] [address] JenniferBrie PA Abdominal cramping (Primary Dx); with history of miscarriage, first trimester (HC) Discharge Disposition: Home Self Care 11/15/2024 8:21 AM CDT - 11/15/2024 11:59 PM CDT Hospital Encounter [facility] [address] [address] Светлана Malik, Positive test (HC) 11/15/2024 Travel [...] on file Legal Sex Female 7:12 AM INFANT TODDLER LEAD TEACHER Gender Identity Not on file Sexual Orientation Not on file Occupation Industry Job Start Date Job End Date works in [employer] Not on file Not on file Not [...] Estimated Date of Delivery 12/06/2024 - Present (02/14/2025) 06/30/2025 (set by Soniya Kennedy RN on [...] alone Communication Method: Patient is active on Manga Corta and has been instructed that results/communications will be made via Manga Corta If a phone call is needed, the [...] 100 bpm. Referral to cardio-obstetrics program at [facility] could be considered if adequate control is not achieved. - anticipate that HR will increase physiologically with changes 3. 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 - Symptoms include itchy, flaky skin on the bottom of the foot, suggesting tinea pedis - Previous treatments with ccmt-dnl-rtwxpuk antifungal spray and cream were ineffective. - will trial topical ketoconazole 2% BID x 4 weeks. If symptoms fail to improve, encouraged follow up. 31 minutes spent in chart review, zyqd-hd-tflv with patient, and documentation on day of [...] Completed 05/17/2023, 03/23, 04/10/2013 (Completed outside of [facility]) COVID-19 vaccine series Completed 05/30/20, 06/01/2023, 09/25/2021, [...] ANTI HIV 1/2 Routine 10/18/2016 2:13 PM INFANT TODDLER LEAD TEACHER Encounter for supervision of normal first in [...] TA AND TV LOCATION: [facility] [place] DATE: 12/02/2024 INDICATION: Cramping, history of miscarriage. [...] : <5 mIU/mL 12/02/2024 3:13 PM CDT [facility] Blood BLOOD SPECIMEN / Unknown Non-Lab Venipuncture / Unknown 12/02/2024 1:52 PM CDT 12/02/2024 2:05 PM CDT Narrative [facility] - 12/02/2024 3:13 PM CDT Expected Value for Healthy Non- premenopausal women <5mIU/mL FOR GESTATIONAL ASSESSMENT-See Range Table Below Weeks Post LMP Approximate HCG Range: (Last Menstrual Period) 3-4 Weeks (9-130) 4-5 Weeks (75-2600) 5-6 Weeks (850-04413) 6-7 Weeks (4000-675622) 7-12 Weeks (81809-469195) 12-16 Weeks (50897-310766) 16-29 Weeks (1400-37451) 29-41 Weeks (940-47164) Expected Value for Healthy Non- premenopausal women <5mIU/mL FOR GESTATIONAL ASSESSMENT-See Range Table Below Weeks Post LMP Approximate HCG Range: (Last Menstrual Period) 3-4 Weeks (9-130) 4-5 Weeks (75-2600) 5-6 Weeks (850-47204) 6-7 Weeks (4000-714378) 7-12 Weeks (59626-124022) 12-16 Weeks (51836-686435) 16-29 Weeks (1400-76726) 29-41 Weeks (940-40029) us Sedrick Lebron MD CHEMISTRY Final Result Performing Organization Address [facility]/ZIP Co de Phone Number [address] [address] * HPV HIGH RISK (05/23/2023 5:02 PM CDT) TYPE 16 Negative Negative 05/27/2023 1:16 PM CDT [facility] TYPE 18 Negative Negative 05/27/2023 1:16 PM CDT [facility] OTHER HIGH RISK TYPES Negative Negative 05/27/2023 1:16 PM CDT [facility] Other (Cervical) Non-Blood / Unknown 05/23/2023 5:02 PM CDT 05/24/2023 5:[address] [facility] - 05/27/2023 1:16 PM CDT HPV types 16, 18, 31, 33, 35, 39, 45, 51, 52, 56, 58, 59, 66 and 68 DNA were undetectable or below the pre-set threshold. Methodology: Steve Nikki 4800 HPV Test us Светлана Malik DO MICROBIOLOGY Final Resu lt [facility] [address] [place] [address], [place] * ANTI HIV 1/2 (10/18/2016 2:13 PM INFANT TODDLER LEAD TEACHER) HIV-1/HIV-2 ANTIBODY Non-Reacti ve Non-Reacti ve 10/18/2016 6:20 PM INFANT TODDLER LEAD TEACHER [facility] Blood BLOOD SPECIMEN / Unknown Venipuncture / Unknown 10/18/2016 2:13 PM INFANT TODDLER LEAD TEACHER 10/18/2016 2:13 PM INFANT TODDLER LEAD TEACHER Narrative [facility] - 10/18/2016 6:20 PM INFANT TODDLER LEAD TEACHER HIV-1 p24 and HIV-1/HIV-2 Ab not detected Senait Curtis LUNCHROOM ATTENDANT SEND OUTS Final Res ult [facility] [address] [place] [address], * ANTI HCV (06/16/2015 10:49 AM CDT) HEPATITIS C ANTIBODY Non-Reacti ve Non-Reacti ve 06/16/2015 5:48 PM CDT [facility] Blood specimen (specimen) BLOOD SPECIMEN / Unknown Venipuncture / Unknown 06/16/2015 10:49 AM CDT 06/16/2015 10:50 AM CDT Narrative [facility] - 06/16/2015 5:48 PM CDT Antibodies to HCV not detected; does not exclude the possibility of exposure to HCV. Rachel Monet DO SEND OUTS Julianna l Result [facility] [address] [place] [address], from Last 3 Months or Most Recently Relevant to Health Maintenance [place] [address] CROSS OF NON-VA-ITS BLUE CROSS OF NON-VA-ITS MEDICAID Care Teams Commercial Loan Closer Relationship Specialty Start Date End Date Светлана Malik DO [address] [place] [address] PCP - General Family Practice 05/24/23
--- OUTSIDE RECORDS SUMMARY | 2025-02-14 00:35 | XMS_ITS | Clinical Summary ---
Author Organization [facility] Address [address] [place] [address] Care Team Providers Care Doctor Of Osteopathy Name Role Phone Needs Pcp, Assignment Primary Care Provider [phone] Source Comments You are receiving this document as you are listed as the primary care provider,follow-up provider, or the patient has been referred to you for consultation.This is in compliance with the Medicare and[facility] EHR Incentive Program,which states Providers who [...] 04/02/1999, 8,1993,1993 Influenza IIV4 (Quadrivalent ) 0.5mL (64367) 06/12/2017 MCV4 (Menactra) 04/14/2011 MMR 03/18/1998,01/18/1995 Td [...] 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
--- OUTSIDE RECORDS SUMMARY | 2025-02-14 00:35 | XMS_ITS | Encounter Summary ---
Author Organization Replaced by [facility] Address [address], [place] [address] Care Team Providers Care Drag Out Worker Name Role Phone Needs Pcp, Assignment Primary Care Provider [phone] Encounter Details Date Type Department Care Team [...] on filedocumented in this encounter Care Teams Drag Out Worker Relationship Specialty Start Date End Date Needs Pcp, María QUINTERO [facility] [place] [address] PCP - General 02/01/18 documented as of this encounter
--- OUTSIDE RECORDS SUMMARY | 2025-02-14 00:35 | XMS_ITS | Encounter Summary ---
Author Organization [facility] Address [address] [place] [address] Care Team Providers Care Oncology Social Work Name Role Phone Needs Pcp, Assignment Primary Care Provider [phone] Encounter Details Date Type Department Care Team (Late st Contact Info) Description 06/08/2017 Scanned History External to External, [place] [address] [facility]- RECORDS Social History Tobacco Use Types Packs/Day [...] on filedocumented in this encounter Care Teams Oncology Social Work Relationship Specialty Start Date End Date Needs Pcp, Assignment [place], [place] [address] PCP - General 02/01/18 documented as of this encounter
== END 2025-02-13 07:25 | disposition home or self-care (01) ==
PROVIDERS: PCP Family Medicine; Visit Provider Obstetrics & Gynecology
DX: O99.212 Obesity complicating pregnancy, second trimester (principal); Z3A.20 20 weeks gestation of pregnancy
CPT/HCPCS: 76811

== ENCOUNTER 2025-02-15 11:22 | Outpatient (CLI) | payer BC, MEDICAID, SELFPAY | END 2025-02-15 11:23 | disposition home or self-care (01) | LOC: NFLDREF 11:23 | PROVIDERS: PCP Family Medicine; Visit Provider Obstetrics & Gynecology | DX: O10.912 Unspecified pre-existing hypertension complicating pregnancy, second trimester (principal); Z3A.20 20 weeks gestation of pregnancy | CPT/HCPCS: 87086 ==

== ENCOUNTER 2025-03-05 21:53 | Outpatient (CLI) | payer BC, SELFPAY ==
[2025-03-05 22:35] LABS: Amnisure Rom* Negative
[2025-03-05 22:38] LABS: Appearance Urine Clear (Clear)
[2025-03-05 23:06] LABS: Trichomonas No Trichomonas Seen (None Seen)
[2025-03-05 23:08] VITALS: BP 121/56; PULSE 92
[2025-03-05 23:10] VITALS: RESP 16; TEMP 36.7
== END 2025-03-05 23:21 | disposition home or self-care (01) ==
LOC: OB OUT 21:53 → OB 21:54
PROVIDERS: PCP Family Medicine; Visit Provider Obstetrics & Gynecology
DX: O47.02 False labor before 37 completed weeks of gestation, second trimester (principal); Z3A.22 22 weeks gestation of pregnancy
CPT/HCPCS: 81001; 81003; 84112; 87210; G0463

== ENCOUNTER 2025-03-20 18:15 | Emergency (ER) | payer BC, SELFPAY ==
--- OUTSIDE RECORDS SUMMARY | 2025-03-05 08:58 | XMS_ITS | Encounter Summary ---
Author Organization [place] Address [address] [place] [address] Care Team Providers Care Sanding Machine Tender Name Role Phone Daisy Beebe PA-C Unavailable [phone] System, Provider Not In Primary Care Provider Un available Nilam Beal MD Unavailable Reason for Referral * Diagnostic Imaging Ultrasound (Routine) - Pending Review Specialty Diagnoses / Procedures Referred By Contac t Referred To Contact Radiology. Diagnoses related condition, antepartum Procedures [facility] US Comprehensive Single Ro Ford MD [facility] [address] [place] [id number] Phone: tel: fax: Referral ID Status Reason Start Date Expiration Date V isits Requested Visits Authorized [id number] Pending Review 02/21/2025 02/21/2026 1 1 Reason for Visit * Diagnostic Imaging Ultrasound (Routine) - Pending Review Specialty Diagnoses / Procedures Referred By Contac t Referred To Contact Radiology. Diagnoses related condition, antepartum Procedures [facility] US Comprehensive Single Ro Ford MD [facility] [address] [place] [address] Phone: tel: fax: Referral ID Status Reason Start Date Expiration Date V isits Requested Visits Authorized [id number] Pending Review 02/21/2025 02/21/2026 1 1 Encounter Details Date Type Department Care Team (Latest Contact Info) Description 03/05/2025 8:58 AM CDT - 03/05/2025 11:59 PM CDT Hospital Encounter [facility] M[facility] [place] [address] [place] [phone] Ro Ford MD [facility] [address] [place] [address] Ofelia Macedo MD [address] [place], [place] [id number] related condition, antepartum Discharge Disposition: Home or Self Care Social History Tobacco Use Types Packs/Day Years Used Date Smoking Tobacco: Former Cigarettes Q uit: 09/22/2021 Smokeless Tobacco: Never Adolescent Education Answer Date Record ed Getting School Help Needed Not on file 05/23 Estimated Date of Delivery Comme nts Yes 07/03/2025 Based on Ultraso und Sex and Gender Information Value Date Recorded Sex Assigned at Not on file 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 Acetaminophen 325 MG CAPS Take by mouth. albuterol (PROAIR HFA/PROVENTIL HFA/VENTOLIN HFA) 108 (90 Base) MCG/ACT inhalerIndication s:Infection due to 2019 novel coronavirus Inhale 2 puffs into the lungs every 6 hours as needed for shortness of breath, wheezing or cough 18 g 1 09/21/2022 Cholecalciferol 100 MCG (4000 UT) TABS citalopram (CELEXA) 10 MG tablet Take 10 mg by mouth. 07/13/2024 metoprolol succinate ER (TOPROL XL) 50 MG 24 hr tablet Take 50 mg by mouth daily. documented as of this encounter Plan of Treatment Upcoming Encounters Date Type Department Care Team (Late st Contact Info) Description 04/10/2025 9:30 AM CDT Ancillary Procedure [facility] Maternal Medicine [address] [place] [phone] Kitty Dennis MD [address] [place], [place] [id number] 04/10/2025 10:00 AM CDT Office Visit [facility] Maternal Medicine [address] [place] [phone] Kitty Dennis MD [address] [place], [place] [id number] documented as of this encounter Procedures Procedure Name Priority Date/Time Associated Diagnosis Comments [facility] US COMPREHENSIVE SINGLE Routine 03/05/2025 10:40 AM CDT related condition, antepartum documented in this encounter Results * [facility] US Comprehensive Single (03/05/2025 10:40 AM CDT) Anatomical Region Laterality Modality Ultrasound 03/05/2025 9:35 AM CDT Impressions 03/06/2025 11:28 AM CDT IMPRESSION ----- 1. Amaral at 22w 6d gestational age. 2. No anomalies commonly detected by ultrasound were identified in the detailed anatomic survey within the limits of ultrasound, however some views were suboptimal, as described above. 3. Growth parameters and estimated weight were consistent with gestational age predicted by assigned JENY. EFW 18%, AC 28%. 4. The amniotic fluid volume appeared normal. 5. On transabdominal imaging the cervix appeared long and closed. Narrative 03/06/2025 11:28 AM CDT Comprehensive ----- Pat. Name: CARON ESTES Study Date: 03/05/2025 9:35am Pat. NO: [id number] Referring MD: RO FORD Site: Palliative Care Coordinator: Janusz Sampson RDMS : 1995 Age: 29 ----- INDICATION ----- BMI > 40 Chronic hypertension on labetalol JUAN PABLO Sinus tachycardia Cholelithiasis History of hysteroscopy with myosure polyp removal in 2020, concurrent laparoscopy with cautery of endometriosis Prior x 1 METHOD ----- Transabdominal ultrasound examination. View: Suboptimal view: limited by position and maternal body habitus ----- Amaral . Number of fetuses: 1 DATING ----- Date Details Gest. age JENY LMP 09/23/2024 23 w + 2 d 06/30/2025 Previous U/S 11/23/2024 GA, GA 8 w + 2 d 22 w + 6 d 07/03/2025 U/S 03/05/2025 based upon AC, BPD, Femur, HC 22 w + 2 d 07/07/2025 Assigned dating based on ultrasound (GA), selected on 03/05/2025 22 w + 6 d 07/03/2025 GENERAL EVALUATION ----- Cardiac activity present. FHR 159 bpm. movements: present. Presentation: cephalic Placenta: Anterior, No Previa, > 2 cm from internal os Umbilical cord: 3 vessel cord Amniotic fluid: Amount of AF: normal. MVP 5.2 cm BIOMETRY ----- BPD 53.3 mm 22w 1d Hadlock OFD 74.4 mm 22w 6d Nicolaides HC 205.7 mm 22w 5d Hadlock Cerebellum tr 24.6 mm 22w 4d Nicolaides Nuchal fold 3.4 mm AC 174.9 mm 22w 3d 28% Hadlock Femur 37.4 mm 21w 6d Hadlock Humerus 33.9 mm 21w 4d Kristi Weight Calculation: EFW 487 g 18% Hadlock EFW (lb,oz) 1 lb 1 oz EFW by Hadlock ([id number]) Head / Face / Neck Biometry: [employer] Account Executive 5.7 mm CM 7.7 mm Nasal bone 6.8 mm ANATOMY ----- The following structures appear normal: Head / Neck Cranium. Head size. Head shape. Lateral ventricles. Choroid plexus. Midline falx. Cavum septi pellucidi. Cerebellum. Cisterna magna. Parenchyma. Thalami. Vermis. Neck. Nuchal fold. Face Lips. Profile. Nose. Maxilla. Mandible. Orbits. Lens. Heart / Thorax LVOT view. Situs. Bicaval view. Superior vena cava. Inferior vena cava. Cardiac position. Cardiac size. Cardiac rhythm. Diaphragm. Abdomen Abdom. wall. Cord insertion. Stomach. Kidneys. Bladder. Liver. Bowel. Genitals. Spine Cervical spine. Thoracic spine. Lumbar spine. Sacral spine. Extremities / Skeleton Arms. Right arm. Right hand. Left arm. Left hand. Legs. Right leg. Right foot. Left leg. Left foot. The following structures could not be adequately visualized: Heart / Thorax 4-chamber view: suboptimal apical view. RVOT view. 3-vessel view. 1-epwdpa-rvbkyba view. Right lung. Left lung. The following structures could not be visualized: Heart / Thorax Aortic arch view. Ductal arch view. sex: male. MATERNAL STRUCTURES ----- Cervix Visualized Appearance: Appears Closed Approach - Transabdominal: Cervical length 49.9 mm Right Ovary Not visualized Left Ovary Not visualized RECOMMENDATION ----- Thank-you for referring your patient for ultrasound assessment. I discussed the findings on today's ultrasound with the patient. I reviewed the limitations of ultrasound both in detecting aneuploidy and structural abnormalities. Ultrasound, when views completed, can routinely detect 80-90% of structural abnormalities. She had low risk cell free DNA for genetic screening this . Upon review of her history, JENY was changed today to 07/03/25 by 8w2d sono. She reports IUD removal in August 2024 (inadvertent removal at home) with some irregular bleeding thereafter. Had not resume normal cycling of menses prior to getting . She was using OPK to track ovulation and knows when she ovulated with JENY estimate of 07/02 or 07/03. Thus, in light of the above, will use 8w2d sono for JENY. Prior to this change, EFW was at the 8% (on US in [place] EFW had been in the 55%). Thus, recommend return to MFM in 2 weeks for growth assessment to ensure adequate interval growth and follow up suboptimal anatomy. Thereafter, recommend serial evaluation of growth q4 weeks starting at 28 weeks gestation and initiation of weekly surveillance at 32 weeks for chronic hypertension on medication. For chronic hypertension on medication, delivery is recommended at [id number]. MFM can assist with delivery timing recommendations if needed. Caron does not have a history of myomectomy - her operative note from 2020 was reviewed today. Return to primary provider for continued care. If you have questions regarding today's evaluation or if we can be of further service, please contact the Maternal- Medicine Center. anomalies may be present but not detected I spent a total of 25 minutes (excluding the ultrasound interpretation) on the date of this encounter including preparing to see the patient (reviewing medical records/tests), in direct [id number] contact with the patient counseling and discussing the plan of care, documenting the visit in the electronic medical record, and communicating with other health healthcare sales representative and/or care coordination. Procedure Note Ofelia Macedo MD - 03/06/2025 Comprehensive ----- Pat. Name: DEBBIE ESTESIL Study Date: 03/05/2025 9:35am Pat. NO: [id number] Referring MD: RO FORD Site: Palliative Care Coordinator: Janusz Sampson RDMS : 1995 Age: 29 ----- INDICATION ----- BMI > 40 Chronic hypertension on labetalol JUAN PABLO Sinus tachycardia Cholelithiasis History of hysteroscopy with myosure polyp removal in 2020, concurrentlaparoscopy with cautery of endometriosis Prior x 1 METHOD ----- Transabdominal ultrasound examination. View: Suboptimal view: limited byfetal position and maternal body habitus ----- Amaral . Number of fetuses: 1 DATING ----- DateDetailsGest. age JENY LMP w + 2 d 06/30/2025 Previous U/S 11/23/2024 GA, GA8 w + 2 d22 w + 6 d 07/03/2025 U/S 03/05/2025ased upon AC, BPD, Femur, HC22 w + 2 d 07/07/2025 Assigned dating based on ultrasound (GA), selected on03/05/2025 22w + 6 d 07/03/2025 GENERAL EVALUATION ----- Cardiac activity present. FHR 159 bpm. movements: present.Presentation: cephalic Placenta: Anterior, No Previa, > 2 cm from internal os Umbilical cord: 3 vessel cord Amniotic fluid: Amount of AF: normal. MVP 5.2 cm BIOMETRY ----- BPD 53.3mm 22w 1dHadlock OFD 74.4mm 22w 6dNicolaides HC 205.7mm 22w 5dHadlock Cerebellum tr 24.6mm 22w 4dNicolaides Nuchal fold 3.4mm AC 174.9mm 22w 3d 28%Hadlock Femur 37.4mm 21w 6dHadlock Humerus 33.9mm 21w 4dJeanty Weight Calculation: EFW 487g 18%Hadlock EFW (lb,oz) 1 lb 1oz EFW by Hadlock([id number]-FL) Head / Face / Neck Biometry: [employer] Account Executive 5.7mm CM 7.7mm Nasal bone 6.8mm ANATOMY ----- The following structures appear normal: Head / Neck Cranium. Head size. Head shape.Lateral ventricles. Choroid plexus. Midline falx. Cavum septi pellucidi.Cerebellum. Cisterna magna. Parenchyma. Thalami. Vermis. Neck. Nuchal fold. Face Lips. Profile. Nose. Maxilla.Mandible. Orbits. Lens. Heart / Thorax LVOT view. Situs. Bicaval view.Superior vena cava. Inferior vena cava. Cardiac position. Cardiac size.Cardiac rhythm. Diaphragm. Abdomen Abdom. wall. Cord insertion. Stomach.Kidneys. Bladder. Liver. Bowel. Genitals. Spine Cervical spine. Thoracic spine.Lumbar spine. Sacral spine. Extremities / Skeleton Arms. Right arm. Right hand. Left arm.Left hand. Legs. Right leg. Right foot. Left leg. Left foot. The following structures could not be adequately visualized: Heart / Thorax 4-chamber view: suboptimal apicalview. RVOT view. 3-vessel view. 2-tgdblp-drubixa view. Right lung. Left lung. The following structures could not be visualized: Heart / Thorax Aortic arch view. Ductal arch view. sex: male. MATERNAL STRUCTURES ----- Cervix Visualized Appearance: Appears Closed Approach - Transabdominal:Cervical length 49.9 mm Right Ovary Not visualized Left Ovary Not visualized RECOMMENDATION ----- Thank-you for referring your patient for ultrasound assessment. I discussed the findings on today's ultrasound with the patient. Ireviewed the limitations of ultrasound both in detecting aneuploidy andstructural abnormalities. Ultrasound, when views completed, can routinely detect 80-90% of structuralabnormalities. She had low risk cell free DNA for genetic screeningthis . Upon review of her history, JENY was changed today to 07/03/25 by [id number]. She reports IUD removal in August 2024 (inadvertent removal athome) with some irregular bleeding thereafter. Had not resume normal cycling of menses prior togetting . She was using OPK to track ovulation and knows when sheovulated with JENY estimate of 07/02 or 07/03. Thus, in light of the above, will use [id number] for JENY. Prior to this change, EFW was at the 8% ([place] 55[place] Thus, recommend return to [facility] in 2 weeks for growth assessment toensure adequate interval growth and follow up suboptimal anatomy. Thereafter, recommend serial evaluation of growth q4 weeks startingat 28 weeks gestation and initiation of weekly surveillance at32 weeks for chronic hypertension on medication. For chronic hypertension on medication,delivery is recommended at [id number]. MFM can assist with deliverytiming recommendations if needed. Caron does not have a history of myomectomy - her operative note [id number] was reviewed today. Return to primary provider for continued care. If you have questions regarding today's evaluation or if we can be offurther service, please contact the Maternal- Medicine Center. anomalies may be present but not detected I spent a total of 25 minutes (excluding the ultrasound interpretation) onthe date of this encounter including preparing to see the patient(reviewing medical records/tests), in direct [id number] contact with the patient counseling and discussingthe plan of care, documenting the visit in the electronic medical record,and communicating with other health healthcare sales representative and/or care coordination. IMPRESSION ----- 1. Amaral at 22w 6d gestational age. 2. No anomalies commonly detected by ultrasound were identified inthe detailed anatomic survey within the limits of prenatalultrasound, however some views were suboptimal, as described above. 3. Growth parameters and estimated weight were consistent withgestational age predicted by assigned JENY. EFW 18%, AC 28%. 4. The amniotic fluid volume appeared normal. 5. On transabdominal imaging the cervix appeared long and closed. us Ro Ford MD [facility] US ORDERABLES Edit ed Result - Final documented in this encounter Visit Diagnoses Diagnosis related condition, antepartum documented in this encounter Care Teams Sanding Machine Tender Relationship Specialty Start Date End Date System, Provider Not In [facility] - General Clinic 02/19/23 Daisy Beebe PA-C [address] [place] [address] Assigned PCP 08/25/22 Nilam Beal MD [address] [facility] [address] [place], [place] [id number] Cardiovascular Disease 02/21/23 documented as of this encounter
--- OUTSIDE RECORDS SUMMARY | 2025-03-05 10:00 | XMS_ITS | Encounter Summary ---
Author Organization [place] Address [facility] [place] [address] Care Team Providers Care Hospice Bereavement Coordinator Name Role Phone Daisy Beebe PA-C Unavailable [phone] System, Provider Not In Primary Care Provider Un available Nilam Beal MD Unavailable Reason for Visit * Reason Comments Ultrasound L2: CHTN, JUAN PABLO, histo ry of polyp removal, BMI>40 Encounter Details Date Type Department Care Team (Late st Contact Info) Description 03/05/2025 10:00 AM CDT Office Visit [facility] Maternal Medicine Center [address] [phone] [facility] [address] [place] [address] Ofelia Macedo MD [address] [place] [id number] Chronic hypertension in (Primary Dx); Obesity during ; Encounter for anatomic survey; History of section; related condition in second trimester Social History Tobacco Use Types Packs/Day Years Used Date Smoking Tobacco: Former Cigarettes Q uit: 09/22/2021 Smokeless Tobacco: Never Adolescent Education Answer Date Record ed Getting School Help Needed Not on file 05/23 Estimated Date of Delivery Comme nts Yes 07/03/2025 Based on Ultraso und Sex and Gender Information Value Date Recorded Sex Assigned at Not on file 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 For a detailed report of the ultrasound examination, please see the ultrasound report which can be found under the imaging tab. If you have questions regarding today's evaluation or if we can be of further service, please contact the Maternal- Medicine Center. Ofelia Macedo MD Direct Response Consultant, [facility] documented in this encounter Nursing Notes * Shaniqua Reyes RN - 03/05/2025 10:00 AM CDT Patient presents to [facility] for L2 at 23w2d due to BMI>40, JUAN PABLO, CHTN. Positive movement. Denies LOF, vaginal bleeding or cramping/contractions. States BP at home 120's/70's. Has occasional MCDONALD but also has history of migraines. Only notices seeing stars with quick movements (ie, sitting to standing quickly). SBAR given to [facility] , see their note in Epic. documented in this encounter Plan of Treatment Upcoming Encounters Date Type Department Care Team (Late st Contact Info) Description 04/10/2025 9:30 AM CDT Ancillary Procedure [facility] Maternal Medicine Center [address] [phone] Kitty Dennis MD [address] [place], [place] [id number] 04/10/2025 10:00 AM CDT Office Visit [facility] Maternal Medicine Center [address] [phone] Kitty Dennis MD [address] [place] [address] documented as of this encounter Visit Diagnoses Diagnosis Chronic hypertension in - Primary Benign essential hypertension complicating , childbirth, and the puerperium, unspecified as to episode of care Obesity during Encounter for anatomic survey History of section Other postprocedural status related condition in second trimester Unspecified complication of , antepartum documented in this encounter Care Teams Hospice Bereavement Coordinator Relationship Specialty Start Date End Date System, Provider Not In PCP - General Clinic 02/19/23 Daisy Beebe PA-C [address] [facility] [address] [place] [address] Assigned PCP 08/25/22 Nilam Beal MD [address] [facility] [facility] [address] [place] [address] Cardiovascular Disease 02/21/23 documented as of this encounter
--- OUTSIDE RECORDS SUMMARY | 2025-03-12 14:30 | XMS_ITS | Encounter Summary ---
Author Organization [facility] Address [address] [place] [address] Care Team Providers Care Orthotist/Prosthetist Name Role Phone Elsewhere, Pcp Primary Care Provider Unavailabl e Reason for Visit * Appointment Request (Routine) - Closed Specialty Diagnoses / Procedures Referred By Lewis t Referred To Contact Nephrology and Hypertension Светлана Malik D.O. [address] [place] [phone] Phone: tel: fax: Referral ID Status Reason Start Date Expiration Date Visits Re quested Visits Authorized [id number] Closed 03/01/2025 06/01/2026 1 1 Encounter Details Date Type Department Care Team (Latest Contact Info) Description 03/12/2025 2:30 PM CDT Virtual Visit Division of Nephrology and Hypertension in [place], [place] [address] [place] [address] Geena Spears M.D., Ph.D. [address] [place] [address] Proteinuria (Primary Dx); Hypertension Essential Primary Social History Tobacco Use Types Packs/Day Years Used Date Smoking Tobacco: Former Cigarettes Q uit: 2020 Passive Smoke Exposure: Past Smokeless Tobacco: Never Comments:Grandparents smoked every other weekend visits Alcohol [...] your living situation today? 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 - 03/12/2025 2:30 PM CDT Referring Provider: Светлана Malik D.O. The patient verbally consented to an audio recording of their visit to assist with the completion of documentation. [place] [facility] Out[facility] Visit Location: [facility] SUBJECTIVE CHIEF COMPLAINT / REASON FOR VISIT Proteinuria during Chronic hypertension HISTORY OF PRESENT ILLNESS History of Present Illness Miss Kami Estes is a 29 year old female with chronic hypertension who presents with proteinuria during . She was referred by her OB for evaluation of proteinuria during . She is currently 24 weeks and has a history of chronic hypertension. She is being monitored closely due to proteinuria detected during this . She reports that her baby is in the 18th percentile for growth and is having frequent ultrasounds. She has a history of sinus tachycardia with PVCs and is currently taking 100 mg of labetalol twice a day for tachycardia and PVCs. Her medication was switched from metoprolol to labetalol during her first trimester. She is also on citalopram and lamotrigine. She has a history of frequent bladder infections and underwent a cystoscopy, which did not reveal any abnormalities. She has consistently had a small amount of red blood cells in her urine over the past four years, which has been noted as abnormal but not further investigated. She mentions a history of a rash that appeared a couple of months ago, primarily on her arm and stomach, which she thought was due to sensitive skin. Her family history is significant for autoimmune diseases, including sarcoidosis in her mother, a condition affecting her aunt's brain, and Stiff person syndrome in her grandmother. Her mother and aunt test positive for markers for Stiff person syndrome but are asymptomatic. She has been four times, with one termination at age 17 and a miscarriage due to a blighted ovum. Her previous was complicated by hyperemesis gravidarum, resulting in significant weight loss, and ended in an emergency after many hours of labor. No significant issues with high blood pressure during that . Medical History[1] Surgical History[2] Allergies Allergen Reactions Codeine-Guaifenesin Anxiety Causes panic attacks Ibuprofen Anaphylaxis, Hives (Reselect Reaction), Rash and Edema, suggestive of allergic reaction, i.e., lip, tongue, or throat swelling Other reaction(s): Hives Other reaction(s): Swelling, lips/tongue Other reaction(s): Hives Kiwi Anaphylaxis and Hives (Reselect Reaction) Levofloxacin Anxiety Causes panic attacks Pineapple Anaphylaxis Sulfa (Sulfonamide Antibiotics) Anaphylaxis Social History Tobacco Use Smoking status: Former Current packs/day: 0.00 Types: Cigarettes Quit date: 2020 Years since quittin.5 Passive exposure: Past Smokeless tobacco: Never Tobacco comments: Grandparents smoked every other weekend visits Substance Use Topics Alcohol use: Never Comment: QUIT 2 YEARS AGO Family History[3] REVIEW OF SYSTEMS All other systems were reviewed and are negative, rest as per HPI. OBJECTIVE PHYSICAL EXAMINATION Physical Exam BP 130/80 Pulse 80 DIAGNOSTICS Labs: I have reviewed available labs in detail with patient. ASSESSMENT / PLAN Assessment & Plan Proteinuria during Proteinuria with a current ldybdef-go-qmgiipcurj ratio of 0.2 to 0.29 is considered baseline. No protein detected on recent dipstick test. There is a risk of preeclampsia due to proteinuria and chronic hypertension, but currently, there is no significant proteinuria or hypertension. Monitor proteinuria and blood pressure closely, especially in the last trimester. Schedule a follow-up visit aroundweek 30-32 for a spot protein test. Repeat a 24-hour urine collection 3-4 months to reassess proteinuria. Advise on dietary modifications and stress management to reduce the risk of preeclampsia. Patient is aware of her increased risk of developing preeclampsia. I have recommended her to have abalanced diet with higher content of fruits and vegetables, that have been shown to be helpful to decrease the risk of preeclampsia and HELLP syndrome during . I have asked her to be mindful of her salt intake, and to decrease the consumption of processed foods during . Chronic hypertension Chronic hypertension is present with occasional blood pressure readings in the 130s/80s. Blood pressure is well-controlled on labetalol, which was switched from metoprolol during the first trimester.There is a risk of developing preeclampsia due to chronic hypertension. Monitor blood pressure at home regularly and maintain the current labetalol regimen. Advise on dietary modifications, includingmoderate salt intake, increased fruits and vegetables, and avoiding processed foods. Encourage regular physical activity and stress management. Return visit in 4-6 weeks Nusrat Cohen M.D., Ph.D. Nephrology and Hypertension [1] No past medical history on file. [2] Past Surgical History: Procedure Laterality Date LASIK Bilateral 2022 SURGICAL REMOVAL OF IMPACTED THIRD MOLAR TOOTH N/A 2009 Extraction of impacted wisdom tooth TONSILLECTOMY N/A 2008 Tonsillectomy [3] Family History Problem Relation Name Age of Onset Hypothyroidism Mother Bladder cancer Grandfather Diabetes Grandfather Diabetes Grandmother Heart attack Grandfather Lung cancer Grandmother Atrial fibrillation Grandfather documented in this encounter Plan of Treatment Not on file documented as of this encounter Visit Diagnoses Diagnosis Proteinuria- Primary Hypertension Essential Primary documented in this encounter Care Teams Orthotist/Prosthetist Relationship Specialty Start Date End Date Elsewhere, Pcp PCP - General Internal Medicine 03/01/24 documented as of this encounter
--- OUTSIDE RECORDS SUMMARY | 2025-03-19 11:00 | XMS_ITS | Encounter Summary ---
Author Organization [facility] Address [facility] [place] [address] Care Team Providers Care Drain Tiler Name Role Phone Daisy Beebe PA-C Unavailable [phone] System, Provider Not In Primary Care Provider Un available Nilam Beal MD Unavailable Ofelia Macedo MD Unavailable [phone] Reason for Visit * Diagnostic Imaging Ultrasound (Routine) - Pending Review Specialty Diagnoses / Procedures Referred By Contac t Referred To Contact Radiology. Diagnoses Obesity during Chronic hypertension in Procedures [facility] US Comprehensive Single F/U Ofelia Macedo MD [address] [place] [address] Phone: tel: fax: Referral ID Status Reason Start Date Expiration Date V isits Requested Visits Authorized [id number] Pending Review 03/19/2025 03/19/2026 1 1 Encounter Details Date Type Department Care Team (Latest Contact Info) Description 03/19/2025 11:00 AM CDT Ancillary Procedure [facility] [address] [phone] Kitty Dennis MD [address] [place] [address] Obesity during ; Chronic hypertension in Social History Tobacco Use Types Packs/Day Years Used Date Smoking Tobacco: Former Cigarettes Q uit: 09/22/2021 Smokeless Tobacco: Never Adolescent Education Answer Date Record ed Getting School Help Needed Not on file 05/23 Estimated Date of Delivery Comme nts Yes 07/03/2025 Based on Ultraso und Sex and Gender Information Value Date Recorded Sex Assigned at Not on file Legal 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 Gender Identity Not on file Sexual Orientation Not on file documented as of this encounter Plan of Treatment Upcoming Encounters Date Type Department Care Team (Late st Contact Info) Description 04/10/2025 9:30 AM CDT Ancillary Procedure [facility] [address] [place] [phone] Kitty Dennis MD [address] [place], [place] [phone] 04/10/2025 10:00 AM CDT Office Visit [facility] [address] [phone] Kitty Dennis MD [address] [place], [place] [phone] documented as of this encounter Procedures Procedure Name Priority Date/Time Associated Diagnosis Comments [facility] US COMPREHENSIVE SINGLE F/U Routine 03/19/2025 11:45 AM CDT Obesity during Chronic hypertension in documented in this encounter Results * [facility] US Comprehensive Single F/U (03/19/2025 11:45 AM CDT) Anatomical Region Laterality Modality Ultrasound 03/19/2025 10:5 6 AM CDT Impressions 03/19/2025 12:36 PM CDT IMPRESSION ----- 1. Amaral at 24w 6d gestational age. 2. Small stomach bubble was visualized. Otherwise, the remaining anatomic survey was completed, no anomalies commonly detected by ultrasound were identified within the limits of ultrasound. 3. Growth parameters and estimated weight were appropriate for gestational age. 4. The amniotic fluid volume appeared normal. Narrative 03/19/2025 12:36 PM CDT Comp Follow Up ----- Pat. Name: CARON ESTES Study Date: 03/19/2025 10:56am Pat. NO: [id number] Referring MD: XAVIER CABELLO Site: Clinic Administrator: Lisa Costello RDMS : 1995 Age: 29 ----- INDICATION ----- BMI > 40 Chronic hypertension on labetalol Obstructive sleep apnea Sinus tachycardia Cholelithiasis History of hysteroscopy with Myosure polyp removal in 2020, concurrent laparoscopy with cautery of endometriosis METHOD ----- Transabdominal ultrasound examination. View: Suboptimal view: limited by maternal body habitus ----- Amaral . Number of fetuses: 1 DATING ----- Date Details Gest. age JENY LMP 09/23/2024 25 w + 2 d 06/30/2025 Previous U/S 11/23/2024 GA, GA 8 w + 2 d 24 w + 6 d 07/03/2025 U/S 03/19/2025 based upon AC, BPD, Femur, HC 25 w + 3 d 06/29/2025 Assigned dating based on ultrasound (GA), selected on 03/05/2025 24 w + 6 d 07/03/2025 GENERAL EVALUATION ----- Cardiac activity present. FHR 158 bpm. movements: present. Presentation: cephalic Placenta: Anterior, No Previa, > 2 cm from internal os Umbilical cord: Cord vessels: 3 vessel cord Amniotic fluid: normal MVP, MVP 5.5 cm BIOMETRY ----- BPD 64.1 mm 25w 6d Hadlock OFD 92.2 mm 27w 2d Nicolaides HC 253.2 mm 27w 4d Hadlock Cerebellum tr 27.5 mm 24w 5d Nicolaides AC 195.3 mm 24w 2d 22% Hadlock Femur 43.1 mm 24w 1d Hadlock Weight Calculation: EFW 710 g 28% Hadlock EFW (lb,oz) 1 lb 9 oz EFW by Hadlock ([id number]) Head / Face / Neck Biometry: Recreation Therapy Aide 5.2 mm CM 5.1 mm Abdomen Biometry: Stomach ap 6.0 mm 5% Olvera Stomach tr 5.0 mm <1% Olvera Stomach long 13.0 mm 3% Olvera ANATOMY ----- Abdomen Stomach: Small stomach The following structures appear normal: Head / Neck Cranium. Head size. Head shape. Lateral ventricles. Midline falx. Cerebellum. Cisterna magna. Thalami. Face Lips. Profile. Nose. Heart / Thorax 4-chamber view. RVOT view. LVOT view. 3-vessel view. 7-klnuou-mniiiza view. Aortic arch view. Ductal arch view. Right lung. Left lung. Diaphragm. Abdomen Kidneys. Bladder. Spine Cervical spine. Thoracic spine. Lumbar spine. Sacral spine. The following structures were documented previously: Head / Neck Cavum septi pellucidi. sex: male. MATERNAL STRUCTURES ----- Cervix Suboptimal Right Ovary Not examined Left Ovary Not examined RECOMMENDATION ----- Thank-you for referring your patient for ultrasound assessment. I discussed the findings on today's ultrasound with the patient. Small stomach Small stomach can be associated with structural malformations, including but not limited to, diaphragmatic hernia, tracheoesophageal (TE) fistula, clefting, micrognathia, but that it also can be a normal variant. We discussed that, in turn, some of these anomalies are associated with aneuploidy. On today's ultrasound there is not a suggestion of diaphragmatic hernia, cleft or micrognathia. Some structural anomalies, such as TE fistula can be extremely difficult to diagnose on ultrasound, however. We discussed the need for follow-up for reevaluation. Recommendations/plan: - Reassess growth in 3 weeks with MFM given small stomach bubble. - Thereafter, recommend serial evaluation of growth q4 weeks. - Weekly surveillance at 32 weeks for chronic hypertension on medication. - For chronic hypertension on medication, delivery is recommended at 37w0d- 39w0d, unless otherwise clinically indicated sooner. Further ultrasound studies as clinically indicated. Return to primary provider for continued care. If you have questions regarding today's evaluation or if we can be of further service, please contact the [facility]. anomalies may be present but not detected I spent a total of 10 minutes (excluding the ultrasound interpretation) on the date of this encounter including preparing to see the patient (reviewing medical records/tests), in direct odny-ev-vxxo contact with the patient during the visit counseling and discussing the plan of care and documenting the visit in the electronic medical record. Procedure Note Kitty Dennis MD - 03/19/2025 Comp Follow Up ----- Pat. Name: CARON ESTES Study Date: 03/19/2025 10:56am Pat. NO: [id number] Referring MD: XAVIER CABELLO Site: Clinic Administrator: Lisa Costello RDMS : 1995 Age: 29 ----- INDICATION ----- BMI > 40 Chronic hypertension on labetalol Obstructive sleep apnea Sinus tachycardia Cholelithiasis History of hysteroscopy with Myosure polyp removal in 2020, concurrentlaparoscopy with cautery of endometriosis METHOD ----- Transabdominal ultrasound examination. View: Suboptimal view: limited bymaternal body habitus ----- Amaral . Number of fetuses: 1 DATING ----- DateDetailsGest. age JENY LMP w + 2 d 06/30/2025 Previous U/S 11/23/2024 GA, GA8 w + 2 d24 w + 6 d 07/03/2025 U/S 03/19/2025ased upon AC, BPD, Femur, HC25 w + 3 d 06/29/2025 Assigned dating based on ultrasound (), selected on03/05/2025 24w + 6 d 07/03/2025 GENERAL EVALUATION ----- Cardiac activity present. FHR 158 bpm. movements: present.Presentation: cephalic Placenta: Anterior, No Previa, > 2 cm from internal os Umbilical cord: Cord vessels: 3 vessel cord Amniotic fluid: normal MVP, MVP 5.5 cm BIOMETRY ----- BPD 64.1mm 25w 6dHadlock OFD 92.2mm 27w 2dNicolaides HC 253.2mm 27w 4dHadlock Cerebellum tr 27.5mm 24w 5dNicolaides AC 195.3mm 24w 2d 22%Hadlock Femur 43.1mm 24w 1dHadlock Weight Calculation: EFW 710g 28%Hadlock EFW (lb,oz) 1 lb 9oz EFW by Humberto([id number]) Head / Face / Neck Biometry: Recreation Therapy Aide 5.2mm CM 5.1mm Abdomen Biometry: Stomach ap 6.0mm 5%Olvera Stomach tr 5.0mm <1%Olvera Stomach long 13.0mm 3%Olvera ANATOMY ----- Abdomen Stomach: Small stomach The following structures appear normal: Head / Neck Cranium. Head size. Head shape.Lateral ventricles. Midline falx. Cerebellum. Cisterna magna. Thalami. Face Lips. Profile. Nose. Heart / Thorax 4-chamber view. RVOT view. LVOT view.3-vessel view. 6-ewzlhk-jvcpwgi view. Aortic arch view. Ductal archview. Right lung. Left lung.Diaphragm. Abdomen Kidneys. Bladder. Spine Cervical spine. Thoracic spine.Lumbar spine. Sacral spine. The following structures were documented previously: Head / Neck Cavum septi pellucidi. sex: male. MATERNAL STRUCTURES ----- Cervix Suboptimal Right Ovary Not examined Left Ovary Not examined RECOMMENDATION ----- Thank-you for referring your patient for ultrasound assessment. Idiscussed the findings on today's ultrasound with the patient. Small stomach Small stomach can be associated with structural malformations, includingbut not limited to, diaphragmatic hernia, tracheoesophageal (TE) fistula,clefting, micrognathia, but that it also can be a normal variant. We discussed that, in turn, someof these anomalies are associated with aneuploidy. On today's ultrasoundthere is not a suggestion of diaphragmatic hernia, cleft or micrognathia. Some structuralanomalies, such as TE fistula can be extremely difficult to diagnose onultrasound, however. We discussed the need for follow-up for reevaluation. Recommendations/plan: - Reassess growth in 3 weeks with MFM given small stomach bubble. - Thereafter, recommend serial evaluation of growth q4 weeks. - Weekly surveillance at 32 weeks for chronic hypertension onmedication. - For chronic hypertension on medication, delivery is recommended [id number], unless otherwise clinically indicated sooner. Further ultrasound studies as clinically indicated. Return to primary provider for continued care. If you have questions regarding today's evaluation or if we can be offurther service, please contact the [facility]. anomalies may be present but not detected I spent a total of 10 minutes (excluding the ultrasound interpretation) onthe date of this encounter including preparing to see the patient(reviewing medical records/tests), in direct acia-ux-lxbv contact with the patient during the visitcounseling and discussing the plan of care and documenting the visit inthe electronic medical record. IMPRESSION ----- 1. Amaral at 24w 6d gestational age. 2. Small stomach bubble was visualized. Otherwise, the remaining fetalanatomic survey was completed, no anomalies commonly detected byultrasound were identified within the limits of ultrasound. 3. Growth parameters and estimated weight were appropriate forgestational age. 4. The amniotic fluid volume appeared normal. us Ofelia Macedo MD [facility] ORDERABLES Edited Result - Final documented in this encounter Visit Diagnoses Diagnosis Obesity during Chronic hypertension in Benign essential hypertension complicating , childbirth, and the puerperium, unspecified as to episode of care documented in this encounter Care Teams Drain Tiler Relationship Specialty Start Date End Date System, Provider Not In PCP - General Clinic 02/19/23 Daisy Beebe PA-C [address] [facility] [address] [place] [address] Assigned PCP 08/25/22 Nilam Beal MD [address] [facility] [address] [place] [address] Cardiovascular Disease 02/21/23 Ofelia Macedo MD [address], [place] [address] Assigned Pediatric Specialist Provider 03/13/25 documented as of this encounter
--- OUTSIDE RECORDS SUMMARY | 2025-03-19 11:30 | XMS_ITS | Encounter Summary ---
Author Organization [place] Address [address] [place] [address] Care Team Providers Care Song Plugger Name Role Phone Daisy Beebe PA-C Unavailable [phone] System, Provider Not In Primary Care Provider Un available Nilam Beal MD Unavailable Ofelia Macedo MD Unavailable [phone] Reason for Referral * Diagnostic Imaging Ultrasound (Routine) - Pending Review Specialty Diagnoses / Procedures Referred By Contac t Referred To Contact Radiology. Diagnoses Obesity during Chronic hypertension in Procedures [facility] US Comprehensive Single F/U Kitty Dennis MD [address] [facility] [address] [place] [address] Phone: tel: fax: Referral ID Status Reason Start Date Expiration Date V isits Requested Visits Authorized [id number] Pending Review 03/19/2025 03/19/2026 1 1 Reason for Visit * Reason Comments Ultrasound RL2-short interval g rowth due to JENY change, suboptimal anatomy, BMI >40 with JUAN PABLO, cHTN on labetolol, hx C/S Encounter Details Date Type Department Care Team (Latest Contact Info) Description 03/19/2025 11:30 AM CDT Office Visit [facility] [address] [phone] Kitty Dennis MD [address] [facility] [address] [place], [place] [phone] Obesity during (Primary Dx); Chronic hypertension in ; Suspected anomaly, antepartum, single or unspecified fetus Social History Tobacco Use Types Packs/Day Years Used Date Smoking Tobacco: Former Cigarettes Q uit: 09/22/2021 Smokeless Tobacco: Never Adolescent Education Answer Date Record ed Getting School Help Needed Not on file 05/23 Estimated Date of Delivery Comme nts Yes 07/03/2025 Based on Ultraso und Sex and Gender Information Value Date Recorded Sex Assigned at Not on file Legal 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 For a detailed report of the ultrasound examination, please see the ultrasound report which can be found under the imaging tab. If you have questions regarding today's evaluation or if we can be of further service, please contact the [facility]. Kitty Dennis M.D. Maternal -Medicine Specialist documented in this encounter Nursing Notes * Jadyn Koenig RN - 03/19/2025 11:30 AM CDT Kami Estes is a at 24w6d who presents to [facility] for scheduled follow up ultrasound. Pt denies bldg/lof/change in discharge, contractions, headache, vision changes, chest pain/SOB or edema.SBAR given to Dr. Dennis, see note in Epic. documented in this encounter Plan of Treatment Upcoming Encounters Date Type Department Care Team (Late st Contact Info) Description 04/10/2025 9:30 AM CDT Ancillary Procedure [facility] [place] [address] [place] [address] [address] [place] [phone] Kitty Dennis MD [address] [place] [address] 04/10/2025 10:00 AM CDT Office Visit [facility] [address] [place] [phone] Kitty Dennis MD [address] [place] [address] Scheduled Orders Name Type Priority Associated Diagnoses Orde r Schedule [facility] Comprehensive Single F/U Imaging Routine Obesity during Chronic hypertension in Expected: 04/16/2025 (Approximate), Expires: 03/19/2026 documented as of this encounter Visit Diagnoses Diagnosis Obesity during - Primary Chronic hypertension in Benign essential hypertension complicating , childbirth, and the puerperium, unspecified as to episode of care Suspected anomaly, antepartum, single or unspecified fetus documented in this encounter Care Teams Song Plugger Relationship Specialty Start Date End Date System, Provider Not In PCP - General Clinic 02/19/23 Daisy Beebe PA-C [address] [place] [address] Assigned PCP 08/25/22 Nilam Beal MD [address] [facility] [address] [place] [id number] Cardiovascular Disease 02/21/23 Ofelia Macedo MD [address] [place] [address] Assigned Pediatric Specialist Provider 03/13/25 documented as of this encounter
--- OUTSIDE RECORDS SUMMARY | 2025-03-20 18:18 | XMS_ITS | Encounter Summary ---
[facility] Address [address] [place] [address] Care Team Providers Care Cnc Field Service Engineer Name Role Phone Needs Pcp, Assignment Primary Care Provider [phone] Encounter Details Date Type Department Care Team (Late st Contact Info) Description 06/08/2017 Scanned History External to External, [place] [address] [facility]- REC[facility]DS Social History Tobacco Use [...] on filedocumented in this encounter Care Teams Cnc Field Service Engineer Relationship Specialty Start Date End Date Needs Pcp, Assignment [place], [place] [address] PCP - General 02/01/18 documented as of this encounter
--- OUTSIDE RECORDS SUMMARY | 2025-03-20 18:18 | XMS_ITS | Clinical Summary ---
Author Organization [facility] Address [address] [address] Phone Care Team Providers Care Orthotic Aide Name Role Phone Joanne Ramsey APRN, BRIGHT CUTTER Unavailable Luisana Cuevas MD Primary Care Provider +1- [phone] Allergies Active Allergy Reactions Criticality Noted Date [...] PM CDT Legal Sex Female 11:06 PM EMERGENCY DEPARTMENT COORDINATOR Gender Identity Female 11/08/2022 6:00 PM CDT [...] to complete this topic Insurance BLUE PLUS [facility] Advance Directives For more information, please contact: [phone] * Full Code (Latest Code Status on File) Date Activated Date Inactivated Comments 11/08/2022 6:25 PM 11/11/2022 4:46 PM Care Teams Orthotic Aide Relationship Specialty Start Date End Date Luisana Cuevas MD [address] [address] PCP - General outside plant engineer 03/28/23 Joanne Ramsey, ASSISTANT PROFESSOR OF LIFE SCIENCES, BRIGHT CUTTER [address] [place] [id number] Nurse Practitioner Psychiatry 11/15/22
--- OUTSIDE RECORDS SUMMARY | 2025-03-20 18:18 | XMS_ITS | Encounter Summary ---
Author Organization [facility] Address [address], [place] [address] Care Team Providers Care Director Product Management Name Role Phone Needs Pcp, Assignment Primary Care Provider [phone] Encounter Details Date Type Department Care Team [...] on filedocumented in this encounter Care Teams Director Product Management Relationship Specialty Start Date End Date Needs Pcp, [facility] [place], [place] [address] PCP - General 02/01/18 documented as of this encounter
--- OUTSIDE RECORDS SUMMARY | 2025-03-20 18:18 | XMS_ITS | Clinical Summary ---
Author Organization [facility] Address [address] [place] [address] Care Team Providers Care Dietary Manager Name Role Phone Светлана Malik Primary Care Provider +1- [phone] Allergies Active Allergy Reactions Criticality Noted Date [...] once daily. 30 Tablet 3 4 Active ondansetron (ZOFRAN ODT) 4 mg disintegrating tabletIndications: Abdominal pain, unspecified abdominal location,Calculus of gallbladder without cholecystitis without obstruction Place 1 Tablet (4 mg) on the tongue every 8 hours if needed for Nausea/Vomiti ng. 20 Tablet 4 Active citalopram (CELEXA) 10 mg tablet Take 10 mg by mouth once daily. 4 Active ketoconazole 2 % creamIndications:T inea pedis of left foot Apply topically to affected area(s) two times daily. Use twice a day for 4 weeks. 30 g 1 5 Active labetaloL 100 mg tabletIndications: Palpitations,Sinus tachycardia Take 1 Tablet (100 mg) by mouth two times daily. 180 Tablet 1 5 Active Active Problems Problem Noted Date Diagnosed Date Bipolar affective disorder, remission status uns pecified 09/05/2024 [facility], Encounter for preconception consultation Overview (08/07/2024): Kami R Sheets : 1995 [facility] PRECONCEPTION CONSULTATION ON REFERRING PHYSICIAN/CLINIC LOCATION/FAX #/LAST UPDATE: Dietary Manager Role and Specialty Contact Info Address Start End Comments Светлана Malik, General (Family Practice) [address] [facility] [address] 05/24/2023 - - Primary MD approves scheduling of recommended ultrasounds/testing: Yes REASON FOR CONSULT: currently on zepbound, would like within a year , BMI 44 , Hx of cerebral aneurysm 06/2023- follows at [facility] Everywhere TODAY'S APPOINTMENT: MD Consultation PRIMARY DIAGNOSIS: 29 y.o. Anxiety, depression 2016 C/S BMI 44 SPECIALISTS/CONSULTS: Dr Naun Lama Neurology at [facility] 03/05/24 Include: Specialty MD Clinic Name Phone# [place] and ADDED TO PATIENT CARE TEAM GENETICS: to be added to appointment PROCEDURES: PERTINENT LABS: PERTINENT MEDS: Zepbound Pauexa Pierre Russell MD PLAN OF CARE: Generalized hypermobility [...] imaging from 06/26/2023; following with neurology at [facility] - Visit 03/05/24, stated f/u [...] currently taking Effexor and managed by Psychiatrist ([facility]) -Obese BMI is 42 with HgbA1c is normal (5.0) on 10/19/16 (7wks) LAST PAP SMEAR: 05/2016 Tobacco abuse 06/18/2015 05/23/2023 Tobacco use disorder 06/18/2015 023 Encounters Date Type Department Care Team Description 03/20/2025 Transcribe Orders [facility] [address] [place] [address] Sue Berumen MD 03/12/2025 Orders Only [facility] Scanner 1 scan: (1-Ord) INCOMING RECORDS-LABS, [facility], 03/12/2025 03/12/2025 Orders Only [facility] Scanner 1 scan: (1-Ord) INCOMING RECORDS-US, [facility], 03/12/2025 03/12/2025 Transcribe Orders [facility] [address] [place] [address] Sue Berumen MD 12/24/2024 Nurse Triage [facility] [address] [place] [address] Gloria Benavidez, ZEN Fast Heartbeat from Last 3 Months Immunizations Immunization Administration [...] 08/02/2005 Td Adult, Adsorbed, Pf, Lf Unspecified 02/23/202 1 Td, Preservative Free (age >= 7 [...] cancer Paternal Grandmother ADD / ADHD Son [place] Autism Son Nathan Relation Name Status Comments [...] on file Legal Sex Female 7:12 AM SUPERVISOR STRIPPING Gender Identity Not on file Sexual Orientation Not on file Occupation Industry Job Start Date Job End Date 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 Yes BP 115/76 (Cuff Site: Right Arm, Position: Sitting, Cuff Size: Adult Large) Pulse 89 Wt (!) 139.3 kg (307 lb) LMP 09/23/2024 (Exact Date) BMI 45.34 kg/m Yenifer Lanier Eladio, 12/06/2024, 9:47 AM HPI: History of Present [...] 100 bpm. Referral to cardio-obstetrics program at [place] could be considered if adequate control is not achieved. - anticipate that HR will increase physiologically with changes 3. 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 - Symptoms include itchy, flaky skin on the bottom of the foot, suggesting tinea pedis - Previous treatments with [id number] antifungal spray and cream were ineffective. - will trial topical ketoconazole 2% BID x 4 weeks. If symptoms fail to improve, encouraged follow up. 31 minutes spent in chart review, [id number] with patient, and documentation on day of [...] 03/29/2025 03/29/2024, 01/13/2024, 05/23/2023, Additional history exists Influenza Vaccine (#1) 2025 , 05/17/2023, 05/15/2021, Additional history exists Depression screening for age [...] HIV for age 15-65 Completed 10/18/2016, 06/16/2015 COVID-19 vaccine series Completed 05/30/20, 06/01/2023, 09/25/2021, Additional history exists Pneumococcal series for age 6-49 Aged Out No longer eligible based on patient's age to complete this topic Procedures Procedure Name Priority Date/Time Associated Diagnosis Comments SCAN CORRESP-EKG RESULTS 03/20/2025 12:04 PM CDT SCAN CORRESP-LABORATORY RESULTS 03/12/2025 12:00 AM CDT SCAN CORRESP-IMAGING 03/12/2025 12:00 AM CDT HPV HIGH RISK Routine 05/23/2023 5:02 PM CDT Screening for malignant neoplasm of cervix ANTI HIV 1/2 Routine 10/18/2016 2:13 PM SUPERVISOR STRIPPING Encounter for supervision of normal first in first trimester (HC) ANTI HCV Routine 06/16/2015 10:49 AM CDT Screening for STD (sexually transmitted disease) from Last 3 Months or Most Recently Relevant to Health Maintenance Results * SCAN CORRESP-EKG RESULTS (03/20/2025 12:04 PM CDT) Narrative 03/20/2025 12:04 PM CDT Ordered by an unspecified provider. us Other Clinical Staff OTHER Final Resul t * SCAN CORRESP-LABORATORY RESULTS (03/12/2025 12:00 AM CDT) us Scanner OTHER Final Result * SCAN CORRESP-IMAGING (03/12/2025 12:00 AM CDT) Anatomical Region Laterality Modality Other us Scanner OTHER Final Result * HPV HIGH RISK (05/23/2023 5:02 PM CDT) TYPE 16 Negative Negative 05/27/2023 1:16 PM CDT [facility] TYPE 18 Negative Negative 05/27/2023 1:16 PM CDT [facility] OTHER HIGH RISK TYPES Negative Negative 05/27/2023 1:16 PM CDT [facility] Other (Cervical) Non-Blood / Unknown 05/23/2023 5:02 PM CDT 05/24/2023 5:02 PM CDT Narrative [facility] - 05/27/2023 1:16 PM CDT HPV types 16, 18, 31, 33, 35, 39, 45, 51, 52, 56, 58, 59, 66 and 68 DNA were undetectable or below the pre-set threshold. Methodology: Steve Nikki 4800 HPV Test us Светлана Malik DO MICROBIOLOGY Final Resu lt [facility] [address] [place] [address], [place] * ANTI HIV 1/2 (10/18/2016 2:13 PM SUPERVISOR STRIPPING) HIV-1/HIV-2 ANTIBODY Non-Reacti ve Non-Reacti ve 10/18/2016 6:20 PM SUPERVISOR STRIPPING [facility] Blood BLOOD SPECIMEN / Unknown Venipuncture / Unknown 10/18/2016 2:13 PM SUPERVISOR STRIPPING 10/18/2016 2:13 PM SUPERVISOR STRIPPING Narrative [facility] - 10/18/2016 6:20 PM SUPERVISOR STRIPPING HIV-1 p24 and HIV-1/HIV-2 Ab not detected Senait Curtis GENERAL FARMWORKER SEND OUTS Final Res ult [facility] [address] [place] [address], * ANTI HCV (06/16/2015 10:49 AM CDT) Pathologist [facility] HEPATITIS C ANTIBODY Non-Reacti ve Non-Reacti ve 06/16/2015 5:48 PM CDT [facility] Blood specimen (specimen) BLOOD SPECIMEN / Unknown Venipuncture / Unknown 06/16/2015 10:49 AM CDT 06/16/2015 10:50 AM CDT Narrative [facility] - 06/16/2015 5:48 PM CDT Antibodies to HCV not detected; does not exclude the possibility of exposure to HCV. Rachel Monet DO SEND OUTS Julianna l Result [facility] [address] [place] [address], from Last 3 Months or Most Recently Relevant to Health Maintenance Insurance [facility] Care Teams Dietary Manager Relationship Specialty Start Date End Date Светлана Malik [place] [address] PCP - General Family Practice 05/24/23
--- OUTSIDE RECORDS SUMMARY | 2025-03-20 18:18 | XMS_ITS | Patient Health Record ---
Author Organization [facility] Address [address] [place] [address] Care Team Providers Care Community Nutrition Educator Name Role Phone Kaitlin Hunter Primary Care Provider ANASTASIA Larson Unavailable [phone] Allergies Allergen (clinical drug ingredient) Drug/Non Drug Allergy documented on EMR Reaction Allergy Type Onset Date Status ibuprofen Ibuprofen face and throat swelling Drug Allergy Active Kiwi rash Allergy Active Reason For Referral No Information Medications Medication SIG (Take, Route, Frequency, Duration) Notes Start Date End Date Status Amoxicillin-Pot Clavulanate 875-125 MG Tablet TAKE 1 TABLET BY MOUTH TWICE DAILY FOR 7 DAYS Diagnosis Unavailable Oral; Duration: 7 Active Vitamin D3 1.25 MG (54805 UT) Capsule Oral; Duration: 30 Active Desvenlafaxine Succinate ER 50 MG Tablet Extended Release 24 Hour null Diagnosis Unavailable Oral; Duration: 90 Active Social History Tobacco Use: Social History Observation Description Date Details (start date - stop date) Former Smoker NA - NA Social History Alcohol Use: Social Info Question Answer Notes Recreational drugs Recreational Drug Use: Yes Alcohol Screen Did you have a drink containing alcohol in the past year? Yes How often did you have a drink containing alcohol in the past year? Monthly or less (1 point) How many drinks did you have on a typical day when you were drinking in the past year? 1 or 2 drinks (0 point) How often did you have 6 or more drinks on one occasion in the past year? Less than monthly (1 point) Points 2 Interpretation Negative Tobacco Use: Social Info Question Answer Notes Tobacco use/smoking Are you a former smoker Plan Of Treatment No Information Insurance Providers Payer Name Payer Address Payer Phone Subscriber Number Group Number Insured Name Patient Relationship to Insured Coverage Start Date Coverage End Date Peggy Perea MA prior to 2023 [address] [address] [place], [place] [id number], Kami Self - patient is the insured Medical (General) History Medical History History ICD Code Anesthesia problems Sleep apnea Surgical History Surgery Date(Month/Year) Laparoscopy 10/2019 06/07 Tonsillectomy 2015 Right arm surgery 2013 Hospitalization History Reason Date(Month/Year) See above
--- OUTSIDE RECORDS SUMMARY | 2025-03-20 18:18 | XMS_ITS | Encounter Summary ---
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
--- OUTSIDE RECORDS SUMMARY | 2025-03-20 18:18 | XMS_ITS | Clinical Summary ---
Author Organization [facility] Address [address] [place] [address] Care Team Providers Care Hay Buckler Name Role Phone Needs Pcp, Assignment Primary Care Provider [phone] Source Comments You are receiving this document as you are listed as the primary care provider,follow-up provider, or the patient has been referred to you for consultation.This is in compliance with the Medicare and[facility] EHR Incentive Program,which states Providers who transition their patient to another setting of careor provider of care or refers their patient to another provider of care shouldprovide summary care record for each transition of care or referral. 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
--- OUTSIDE RECORDS SUMMARY | 2025-03-20 18:19 | XMS_ITS | Patient Health Record ---
Author Organization [facility] Melvi Gonzáles at [facility] Address [address] [place] [address] [address] MARTÍNEZ [facility] [place] [address] Care Team Providers Care Manager Of Learning Name Role Phone VARGAS ADEN MD Primary [...] bedti me as needed Orally Once a day; Duration: 30 day(s) allergies Active Desvenlafaxine Succinate ER [...] Problem Status W/U Status Risk Notes Problem Heartburn (94769908) Heartburn (R12) Active confirmed Problem Obstructive sleep apnea syndrome (disorder) (39165486) Obstructive sleep apnea (adult) (pediatric) (G47.33) Active confirmed Problem Dependence on enabling machine or device (231856119) Dependence on other enabling machines and devices (Z99.89) Active confirmed Problem Morbid obesity (disorder) (012324332) Morbid (severe) obesity due to excess calories (E66.01) Active confirmed Problem Blood chemistry abnormal (937731609) Low vitamin D level (R79.89) Active confirmed Problem Body mass index 40+ - severely obese (836619141) Body mass index [BMI] 45.0-49.9, adult (Z68.42) Active confirmed Plan Of Treatment No Information Insurance Providers Payer Name Payer Address Payer Phone Subscriber Number Group Number Insured Name Patient Relationship to Insured Coverage Start Date Coverage End Date BLUE PLUS PMAP [address] [address] [place] [address] [id number] [facility] CARON Self - patient is [...] open fixation mid humerus fracture, righ t 2007 bilateral tonsillectomy 2008 wisdom teeth extraction 2009 section 06/11/2017 upper GI endoscopy 12/24/2019 colonoscopy 12/24/2019 hysteroscopy, operative, myosure 10/2020 pelvic laparoscopy 10/2020
[2025-03-20 18:36] VITALS: BP 129/78; PULSE 92; RESP 20; TEMP 36.3; O2SAT 98; BMI 47.3
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
[2025-03-20 21:32] LABS: Hemoglobin* 10.8 gm/dL (12.0-16.0)
--- OUTSIDE RECORDS SUMMARY | 2025-03-20 21:32 | XMS_ITS | Encounter Summary ---
Author Organization [facility] Address [address] [place] [address] Care Team Providers Care Sprinkler Truck Driver Name Role Phone Daisy Beebe PA-C Unavailable [phone] System, Provider Not In Primary Care Provider Un available Nilam Beal MD Unavailable Reason for Referral * Consultation (Routine: Next available opening) - Pending Review Specialty Diagnoses / Procedures Referred By Lewis dominguez Referred To Contact Diagnoses related condition, antepartum Ro Ford MD [facility] [address] [place] [address] Phone: tel: fax: [facility] [place] [address] [place] [address] Phone: tel: fax: Referral ID Status Reason Start Date Expiration Date V isits Requested Visits Authorized [id number] Pending Review 02/20/2025 02/20/2026 1 1 Question Answer Preferred Location: [facility] - [place] Working Due Date: 06/30/2025 US Ordering Instructions: If US ONLY is requested, select appropriate US Order and DO NOT order [facility] Consult. Reason for Referral: Ultrasound Ultrasound - Includes Interpretation/Recommendations (*indicates inclusion of genetic counseling): BPP & Growth Indication (* indicates inclusion of genetic counseling): Other (enter details in Comments) - obesity and bipolar Fax number results need to be sent to: Ro Ford [facility], Encounter Details Date Type Department Care Team (Late st Contact Info) Description 02/20/2025 Transcribe Orders [facility] [place] [address] [place] [address] Ro Ford MD [facility] [address] [place] [address] related condition, antepartum (Primary Dx) Social History Tobacco Use Types [...] on file Legal 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 Gender Identity Not on file Sexual Orientation Not on file documented as of this encounter Plan of Treatment Upcoming Encounters Date Type Department Care Team (Late st Contact Info) Description 04/10/2025 9:30 AM CDT Ancillary Procedure [facility] [address] [phone] Kitty Dennis MD [address] [place] [id number] 04/10/2025 10:00 AM CDT Office Visit [facility] [address] [address] Kitty Dennis MD [address] [place] [address] Scheduled Referrals Name Type Priority Associated Diagnoses Orde r Schedule [facility] Med Ctr Referral - Referral Routine: Next available opening related condition, antepartum Expected: 02/20/2025 (Approximate), Expires: 08/19/2025 documented as of this encounter Visit Diagnoses Diagnosis related condition, antepartum- Primary documented in this encounter Care Teams Sprinkler Truck Driver Relationship Specialty Start Date End Date System, Provider Not In PCP - General Clinic 02/19/23 Daisy Beebe PA-C [address] [facility] [address] [place] [address] Assigned PCP 08/25/22 Nilam Beal MD [address] [facility] [address] [place], [place] [address] Cardiovascular Disease 02/21/23 documented as of this encounter
--- OUTSIDE RECORDS SUMMARY | 2025-03-20 21:33 | XMS_ITS | Clinical Summary ---
Author Organization [facility] Address [address] [place] [address] Care Team Providers Care Materials Branch Chief Name Role Phone Kaitlin Hunter MD Primary Care Provider [phone] Serena Temple MD Unavailable [phone] Allergies Active Allergy Reactions Criticality Noted Date Comments Ibuprofen Swelling, lips/tongue,Rash High 6 Kiwi Hives Medium 10/08/2021 Medications levonorgestreL (MIRENA) 20 mcg/24 hours (6 yrs) 52 mg IU IUD 1 Device by Intrauterine route ONCE. Active Mth-Me Blue-Sod Wteu-EsOlw-Rrm (URIBEL) 118-10-40.8-36 mg oral Cap Take 1 [...] (10/22/2021): Added automatically from request for surgery [id number] JUAN PABLO (obstructive sleep apnea) 10/01/2021 Overview [...] Sex Assigned at Female 07/02/2021 11:07 AM EMERGENCY VEHICLE DISPATCHER Legal Sex Female 4:50 PM CDT Gender Identity Female 07/02/2021 11:07 AM EMERGENCY VEHICLE DISPATCHER Sexual Orientation Bisexual 07/02/2021 11 :07 AM EMERGENCY VEHICLE DISPATCHER Last Filed Vital Signs Vital Sign Reading [...] 02/23/2021, 02/02/2021 Colonoscopy 12/23/2024 12/24/2019 Influenza Vaccine (#1) 2025 , 07/04/2020, 07/03/2019, Additional history exists Adult Tetanus [...] PM CDT) Case Report Pap Smear Case: [id number] Authorizing Provider: Georgina Metzger PA-C Collected: 04/30/2020 06:28 PM Ordering Location: [facility] - Received: 05/01/2020 05:56 PM [facility] First Screen: Sumi Myrick Specimen: Cervical Thin Prep (HPV Reflex) Wad Compressor Operator Adjuster Screen, Cervix 05/05/2020 3:37 PM CDT [facility] Interpretation Negative for intraepithelial lesion or malignant cells. 05/05/2020 3:37 PM CDT [facility] at 1537 CDT Specimen Adequacy Satisfactory for evaluation. Endocervical/trans formation zone component absent. 05/05/2020 3:37 PM CDT [facility] LMP 04/30/2020 05/05/2020 3:37 PM CDT [facility] Pap Disclaimer This specimen was screened by the [employer] [facility] prior to manual review by a table hand and/or pathologist. The Pap test is a [...] 17 (5): S2-S27 05/05/2020 3:37 PM CDT [facility] Vaginal and cervical cytologic material (specimen) CERVIX UTERI STRUCTURE / Unknown 04/30/2020 6:28 PM CDT 05/01/2020 5:56 PM CDT Comment:No LMP recorded. (Oh nstrual status: IUD). Georgina Metzger PA-C PATHOLOGY/CYTOLOGY ORDERABLE F inal Result Performing Organization Address City/[facility]/ZIP Co de Phone Number [facility] [address] [place] [id number] * HEP C ANTIBODY (04/30/2020 5:54 PM CDT) Hepatitis C Antibody Non-Reacti ve Non-Reacti ve 05/01/2020 1:06 PM CDT [facility] Blood specimen (specimen) VENOUS BLOOD SPECIMEN / Unknown 04/30/2020 5:54 PM CDT 05/01/2020 11:44 AM CDT Georgina Metzger PA-C IMMUNOLOGY ORDERABLE Final Res ult Performing Organization Address City/[facility]/ZIP Co de Phone Number [facility] [address] [place] [id number] from Last 3 Months or Most Recently Relevant to Health Maintenance Care Teams Materials Branch Chief Relationship Specialty [place] [address] [place] [address] [address] [place] [address] PCP - General Family Medicine 10/23/21 Serena Temple MD [address] [place] [address] [facility] 10/23/21
--- OUTSIDE RECORDS SUMMARY | 2025-03-20 21:33 | XMS_ITS | Encounter Summary ---
Author Organization [facility] Address [address] [place] [address] Care Team Providers Care Engineer Of System Development Name Role Phone Kaitlin Hunter MD Primary Care Provider [phone] Serena Temple MD Unavailable [phone] Encounter Details Date Type Department Care Team (Latest Contact Info) Description 10/16/2021 Prep For Procedure [facility] [address] [facility] [address] [place], [place] [id number] [place] [address] [place] [address] [address] [place], [place] [phone] Syncope, unspecified syncope type (Primary Dx) Social [...] Sex Assigned at Female 07/02/2021 11:07 AM SUGAR BOILER Legal Sex Female 4:50 PM CDT Gender Identity Female 07/02/2021 11:07 AM SUGAR BOILER Sexual Orientation Bisexual 07/02/2021 11 :07 AM SUGAR BOILER COVID-19 Exposure Response Date Recorded In the last month, have you been in contact with someone who was confirmed or suspected to have Coronavirus / COVID-19? No / Unsure 10/19/2021 1:16 PM SUGAR BOILER documented as of this encounter Plan of Treatment Not on file documented as of this encounter Visit Diagnoses Diagnosis Syncope, unspecified syncope type- Primary documented in this encounter Additional Health Concerns Infection Onset Date Last Indicated Resolved Time COVID-19 01/27/2022 01/27/2022 02/26/2022 2:49 AM CDT documented as of this encounter Care Teams Engineer Of System Development Relationship Specialty Start Date End Date Kaitlin Hunter MD [address] [place] [address] PCP - General Family Medicine 10/23/21 Serena Temple MD [address] [place] [address] [place] [address] Neurology 10/23/21 documented as of this encounter
--- OUTSIDE RECORDS SUMMARY | 2025-03-20 21:33 | XMS_ITS | Encounter Summary ---
Author Organization [facility] Address Counts include 234 beds at the [facility] [place] [address] Care Team Providers Care Flotation Operator Name Role Phone Daisy Beebe PA-C Unavailable [phone] System, Provider Not In Primary Care Provider Un available Nilam Beal MD Unavailable Encounter Details Date Type Department Care Team (Late st Contact Info) Description 02/20/2025 Medical Correspondence [facility] Information Management [address] [facility] [address] [place] [address] Scan, Non-Provider Social History Tobacco Use Types Packs/Day Years Used Date Smoking Tobacco: Former Cigarettes Q uit: 09/22/2021 Smokeless Tobacco: Never Adolescent Education Answer Date Record ed Getting School Help Needed Not on file 05/23 Estimated Date of Delivery Comme nts Yes 07/03/2025 Based on Ultraso und Sex and Gender Information Value Date Recorded Sex Assigned at Not on file Legal 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 Gender Identity Not on file Sexual Orientation Not on file documented as of this encounter Plan of Treatment Upcoming Encounters Date Type Department Care Team (Late st Contact Info) Description 04/10/2025 9:30 AM CDT Ancillary Procedure [facility] [address] [place] [phone] Kitty Dennis MD [address] [place], [place] [address] 04/10/2025 10:00 AM CDT Office Visit [facility] [address] [place] [phone] Kitty Dennis MD [address] [place] [address] documented as of this encounter Visit Diagnoses Not on filedocumented in this encounter Care Teams Flotation Operator Relationship Specialty Start Date End Date System, Provider Not In PCP - General Clinic 02/19/23 Daisy Beebe PA-C [address] [place] [address] Assigned PCP 08/25/22 Nilam Beal MD [address] [place], [place] [address] Cardiovascular Disease 02/21/23 documented as of this encounter
--- OUTSIDE RECORDS SUMMARY | 2025-03-20 21:33 | XMS_ITS | Encounter Summary ---
Author Organization [place] Address [address] [place] [address]. [place] [address] Care Team Providers Care Physician Scribe Name Role Phone Daisy Beebe PA-C Unavailable [phone] System, Provider Not In Primary Care Provider Un available Nilam Beal MD Unavailable Reason for Visit * Reason Comments Ultrasound L2- CHTN, obesity, b ipolar, sinus tachycardia, suboptimal outside [place] Encounter Details Date Type Department Care Team (Late st Contact Info) Description 02/26/2025 PRE VISIT [facility] [address] [place] [phone] Ofelia Lucero, RN Ultrasound (L2- CHTN, obesity, bipolar, sinus tachycardia, suboptimal outside [place]) Social History Tobacco Use Types Packs/Day Years Used Date Smoking Tobacco: Former Cigarettes Q uit: 09/22/2021 Smokeless Tobacco: Never Adolescent Education Answer Date Record ed Getting School Help Needed Not on file 05/23 Estimated Date of Delivery Comme nts Yes 07/03/2025 Based on Ultraso und Sex and Gender Information Value Date Recorded Sex Assigned at Not on file Legal Sex Female 4:15 AM RN CLINICAL TRIALS Gender Identity Not on file Sexual Orientation Not on file documented as of this encounter Plan of Treatment Upcoming Encounters Date Type Department Care Team (Late st Contact Info) Description 04/10/2025 9:30 AM CDT Ancillary Procedure [facility] [address] [place] [phone] Kitty Dennis MD [address] [place], [place] [address] 04/10/2025 10:00 AM CDT Office Visit [facility] [address] [place] [phone] Kitty Dennis MD [address] [place], [place] [address] documented as of this encounter Visit Diagnoses Not on filedocumented in this encounter Care Teams Physician Scribe Relationship Specialty Start Date End Date System, Provider Not In PCP - General Clinic 02/19/23 Daisy Beebe PA-C [address] [facility] [address] [place] [address] Assigned PCP 08/25/22 Nilam Beal MD [address] [facility] [address] [place] [address] Cardiovascular Disease 02/21/23 documented as of this encounter
--- OUTSIDE RECORDS SUMMARY | 2025-03-20 21:33 | XMS_ITS | Encounter Summary ---
Author Organization [place] Address [address] [facility] 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 [address] [phone] Kitty Dennis MD [address] [facility] [address] [place] [address] 04/10/2025 10:00 AM CDT Office Visit [facility] [address] [phone] Kitty Dennis MD [address] [place], [place] [phone] documented as of this encounter Visit Diagnoses Not on filedocumented in this encounter Care Teams Tourist Cabin Keeper Relationship Specialty Start Date End Date System, Provider Not In PCP - General Clinic 02/19/23 Daisy Beebe PA-C [address] [place], [place] [address] Assigned PCP 08/25/22 Nilam Beal MD [address] [facility] [address] [place], [place] [address] Cardiovascular Disease 02/21/23 Ofelia Macedo MD [address] [place], [place] [address] Assigned Pediatric Specialist Provider 03/13/25 documented as of this encounter
--- OUTSIDE RECORDS SUMMARY | 2025-03-20 21:33 | XMS_ITS ---
Author Organization [facility] Source Produ ction (ClinicalSummary Clone) Address Unknown Care Team Providers Care Fluid Power Mechanic Name Role Phone Unavailable Primary Care Physician Unavailab le Results * [UNITY] ANEUPLOIDY NIPT Performed by: Qool Component Value Range Date Fraction 5.1% 12/14/2024 08 :09 pm UTC Sex Chromosome Aneuploidy NOT DETECTED 08:09 pm UTC Monosomy X LOW RISK <1 in 10,000 2024 08:09 pm UTC Trisomy 13 LOW RISK <1 in 10,000 2024 08:09 pm UTC Trisomy 18 LOW RISK <1 in 10,000 2024 08:09 pm UTC Trisomy 21 LOW RISK <1 in 10,000 2024 08:09 pm UTC Sex MALE 12/14/2024 08:0 9 pm UTC Gestation HEATON 12/15/19 08:09 pm UT For detailed report, see PDF See PDF 12/14/2024 08:09 pm UTC 12/14/2024 08:0 9 pm UT Social History Observation Value Start Date End Date
--- OUTSIDE RECORDS SUMMARY | 2025-03-20 21:33 | XMS_ITS | Encounter Summary ---
Author Organization [place] Address [facility] 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 Gender Identity Not on file Sexual Orientation Not on file documented as of this encounter Plan of Treatment Upcoming Encounters Date Type Department Care Team (Late st Contact Info) Description 04/10/2025 9:30 AM CDT Ancillary Procedure [facility] [address] [phone] Kitty Dennis MD [address] [place] [address] [address] [place], [place] [address] 04/10/2025 10:00 AM CDT Office Visit [facility] [address] [place] [address] Kitty Dennis MD [address] [place] [address] documented as of this encounter Visit Diagnoses Not on filedocumented in this encounter Care Teams Board Certified Orthodontist Relationship Specialty Start Date End Date System, Provider Not In PCP - General Clinic 02/19/23 Daisy Beebe PA-C [address] [place], [place] [address] Assigned PCP 08/25/22 Nilam Beal MD [address] [place], [place] [address] Cardiovascular Disease 02/21/23 documented as of this encounter
--- OUTSIDE RECORDS SUMMARY | 2025-03-20 21:33 | XMS_ITS | Clinical Summary ---
Author Organization [facility] Address [address] [place] [address] Care Team Providers Care Manager Trade Name Role Phone Elsewhere, Pcp Primary Care Provider Unavailabl e Source Comments Patient records contain information from all sites at [facility]. For routine questions regarding patient records, call [phone] during business hours, M-F 8:00 AM - 5:00 PM Central Time. Record requests for emergency care only can be directed to [phone] at any time.[facility] Allergies Active [...] 03/14/2024 Astigmatism Bilateral 03/14/2024 Headache Unspecified 03/14/2024 Encounters Date Type Department Care Team Description 03/12/2025 2:30 PM CDT Virtual Visit Division of Nephrology and Hypertension in [place], [place] [address] [place] [address] Geena Spears M.D., Ph.D. Proteinuria (Primary Dx); Hypertension Essential Primary from Last 3 Months Immunizations Immunization Administration Dates Next Due 4vHPV [...] your living situation today? 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 Respiratory Rate 28 06/01/2024 5:30 PM CDT [...] 04/30/2023 04/30/2020 Depression Screening (Annual PHQ-2) 08/22/2024 Influenza Vaccine (#1) 2025 , 05/17/2023, 05/15/2021, Additional history exists DTaP,Tdap,and Td Vaccines (9 - Td or Tdap) 05/17/2033 05/17/2023, 10/14/2020, 04/10/2013, Additional history exists IPV Vaccines Completed 04/02/1999, 02/20, 1993, Additional history exists HPV Vaccines Completed 10/31/2008, 10/2007, 04/04/2008 Varicella Vaccines Completed 04/14/2011, 08/27/2002 COVID-19 Vaccine Completed 05/30/2024, 06/2023, 09/25/2021, Additional history exists Hepatitis B Vaccines Completed 01/18/2025, 01/18/1995, 1993, Additional history exists Pneumococcal vaccine (0-49 years) Aged Out No longer eligible based on patient's age to complete this topic Medical Devices Implanted Type Area Key Ringer Device Identifier Shelf Expiration Date Model / Serial / Lot Hardware E.G. Pins/Screws/Milo s Hardware e.g. pins/screws/milo s Right: Arm Intrauterine Device Intrauterine Device Uterus Description:Mirena Insurance [facility] Member Subscriber Plan / Payer (Ef fective 2024-Present) Name:CARON ESTES Relation to Subscriber:Spouse Name:Gallo Pedraza Date of :1988 Address: [address] [place] [address] [place] [address] Payer ID:Not on file Type:PPO Address: [facility] [id number] [place] [id number] Care Teams Manager Trade Relationship Specialty Start Date End Date Elsewhere, Pcp PCP - General Internal Medicine 03/01/24
--- OUTSIDE RECORDS SUMMARY | 2025-03-20 21:33 | XMS_ITS | Encounter Summary ---
Author Organization [place] Address [facility] [place] [address] Care Team Providers Care Hand Or Machine Paster Name Role Phone Daisy Beebe PA-C Unavailable [phone] System, Provider Not In Primary Care Provider Un available Nilam Beal MD Unavailable Ofelia Macedo MD Unavailable [phone] Reason for Referral * Diagnostic Imaging Ultrasound (Routine) - Pending Review Specialty Diagnoses / Procedures Referred By Contac t Referred To Contact Radiology. Diagnoses Obesity during Chronic hypertension in Procedures [facility] US Comprehensive Single F/U Ofelia Macedo MD [address] [place] [address] Phone: tel: fax: Referral ID Status Reason Start Date Expiration Date V isits Requested Visits Authorized [id number] Pending Review 03/19/2025 03/19/2026 1 1 Encounter Details Date Type Department Care Team (Late st Contact Info) Description 03/19/[address] 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 Maternal Medicine [address] [phone] Kitty Dennis MD [address] [place] [address] 04/10/2025 10:00 AM CDT Office Visit [facility] [address] [phone] Kitty Dennis MD [address] [place] [phone] documented as of this encounter Results * [facility] US Comprehensive Single F/U (03/19/2025 11:45 AM [...] ESTES Study Date: 03/19/2025 10:56am Pat. NO: [id number] Referring MD: XAVIER CABELLO Site: Certified Nurses Aide: Lisa Costello RDMS : 1995 Age: 29 [...] 1 lb 9 oz EFW by Hadlock ([id number]) Head / Face / Neck Biometry: Molded Goods Inspector Trimmer 5.2 mm CM 5.1 mm Abdomen Biometry: [...] view. RVOT view. LVOT view. 3-vessel view. 7-uefjgv-yslbajz view. Aortic arch view. Ductal arch view. [...] the patient (reviewing medical records/tests), in direct vpdn-mq-tejj contact with the patient during the visit counseling and discussing the plan of care and documenting the visit in the electronic medical record. Procedure Note Kitty Dennis MD - 03/19/2025 Comp Follow Up ----- Pat. Name: CARON ESTES Study Date: 03/19/2025 10:56am Pat. NO: [id number] Referring MD: XAVIER CABELLO Site: Certified Nurses Aide: Lisa Costello RDMS : 1995 Age: 29 [...] dating based on ultrasound ([place]), selected on03/05/2025 24w + 6 d 07/03/2025 [...] EFW (lb,oz) 1 lb 9oz EFW by Hadlock([id number]) Head / Face / Neck Biometry: Molded Goods Inspector Trimmer 5.2mm CM 5.1mm Abdomen Biometry: Stomach ap 6.0mm 5%Ol[place]a Stomach tr 5.0mm <1%[place]a Stomach long 13.0mm 3%Olvera ANATOMY ----- Abdomen Stomach: Small stomach The following structures appear normal: Head / Neck Cranium. Head size. Head shape.Lateral ventricles. Midline falx. Cerebellum. Cisterna magna. Thalami. Face Lips. Profile. Nose. Heart / Thorax 4-chamber view. RVOT view. LVOT view.3-vessel view. 3-ugcdlt-oqlqeby view. Aortic arch view. Ductal archview. Right [...] chronic hypertension on medication, delivery is recommended [id number], unless otherwise clinically indicated sooner. Further ultrasound [...] see the patient(reviewing medical records/tests), in direct drae-wl-zxwy contact with the patient during the visitcounseling [...] volume appeared normal. us Ofelia Macedo MD [facility] ORDERABLES Edited Result - Final documented in this encounter Visit Diagnoses Diagnosis Obesity during - Primary Chronic hypertension in Benign essential hypertension complicating , childbirth, and the puerperium, unspecified as to episode of care Obesity during Chronic hypertension in Benign essential hypertension complicating , childbirth, and the puerperium, unspecified as to episode of care documented in this encounter Care Teams Hand Or Machine Paster Relationship Specialty Start Date End Date System, Provider Not In PCP - General Clinic 02/19/23 Daisy Beebe PA-C [address] [facility] [address] [place] [address] Assigned PCP 08/25/22 Nilam Beal MD [address] [facility] [address] [place] [address] Cardiovascular Disease 02/21/23 Ofelia Macedo MD [address], [place] [address] Assigned Pediatric Specialist Provider 03/13/25 documented as of this encounter
--- OUTSIDE RECORDS SUMMARY | 2025-03-20 21:33 | XMS_ITS | Encounter Summary ---
Author Organization [place] Address [address] [place] [address]. [place] [address] Care Team Providers Care Engineering Supervisor Name Role Phone Daisy Beebe PA-C Unavailable [phone] System, Provider Not In Primary Care Provider Un available Nilam Beal MD Unavailable Reason for Referral * Diagnostic Imaging Ultrasound (Routine) - Pending Review Specialty Diagnoses / Procedures Referred By Contac t Referred To Contact Radiology. Diagnoses related condition, antepartum Procedures [facility] US Comprehensive Single Ro Ford MD [facility] [address] [place] [address] Phone: tel: fax: Referral ID Status Reason Start Date Expiration Date V isits Requested Visits Authorized [id number] Pending Review 02/21/2025 02/21/2026 1 1 Encounter Details Date Type Department Care Team (Late st Contact Info) Description 02/21/2025 Transcribe Orders [facility] [address] [phone] Ro Ford MD [facility] [address] [place] [address] related condition, antepartum (Primary Dx) Social History [...] on file 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 Gender Identity Not on file Sexual Orientation Not on file documented as of this encounter Plan of Treatment Upcoming Encounters Date Type Department Care Team (Late st Contact Info) Description 04/10/2025 9:30 AM CDT Ancillary Procedure [facility]aternal [facility] [address] [place] [phone] Kitty Dennis MD [address] [place] [address] 04/10/2025 10:00 AM CDT Office Visit [facility] [address] [place] [address] Kitty Dennis MD [address] [place] [address] documented as of this encounter Results * [facility] US Comprehensive Single (03/05/2025 10:40 AM [...] 11:28 AM CDT Comprehensive ----- Pat. Name: ACRON ESTES Study Date: 03/05/2025 9:35am Pat. NO: [id number] Referring MD: RO FORD Site: Dry Press Operator Helper: Janusz Sampson RDMS : 1995 Age: 29 [...] 1 lb 1 oz EFW by Hadlock ([id number]) Head / Face / Neck Biometry: Banquet Steward 5.7 mm CM 7.7 mm Nasal bone [...] suboptimal apical view. RVOT view. 3-vessel view. 9-gxgded-nozlwja view. Right lung. Left lung. The following [...] was at the 8% (on US in [place] EFW had been in the 55%). Thus, recommend return to MFM in 2 weeks for growth assessment to ensure adequate interval growth and follow up suboptimal anatomy. Thereafter, recommend serial evaluation of growth q4 weeks starting at 28 weeks gestation and initiation of weekly surveillance at 32 weeks for chronic hypertension on medication. For chronic hypertension on medication, delivery is recommended at [id number]. MFM can assist with delivery timing recommendations [...] the patient (reviewing medical records/tests), in direct hjgu-tn-wkfn contact with the patient counseling and discussing the plan of care, documenting the visit in the electronic medical record, and communicating with other health wound care technician and/or care coordination. Procedure Note Ofelia Macedo MD - 03/06/2025 Comprehensive ----- Pat. Name: CARON ESTES Study Date: 03/05/2025 9:35am Pat. NO: [id number] Referring MD: RO FORD Site: Dry Press Operator Helper: Janusz Sampson RDMS : 1995 Age: 29 [...] EFW (lb,oz) 1 lb 1oz EFW by Hadlock([id number]) Head / Face / Neck Biometry: Banquet Steward 5.7mm CM 7.7mm Nasal bone 6.8mm ANATOMY [...] view: suboptimal apicalview. RVOT view. 3-vessel view. 6-alolpw-fewykdx view. Right lung. Left lung. The following [...] JENY was changed today to 07/03/25 by [id number]. She reports IUD removal in August 2024 (inadvertent removal athome) with some irregular bleeding thereafter. Had not resume normal cycling of menses prior togetting . She was using OPK to track ovulation and knows when sheovulated with JENY estimate of 07/02 or 07/03. Thus, in light of the above, will use [id number] for JENY. Prior to this change, EFW was at the 8% ([place] been in the 55[place] Thus, recommend return to [facility] in 2 weeks for growth assessment toensure adequate interval growth and follow up suboptimal anatomy. Thereafter, recommend serial evaluation of growth q4 weeks startingat 28 weeks gestation and initiation of weekly surveillance at32 weeks for chronic hypertension on medication. For chronic hypertension on medication,delivery is recommended at [id number]. MF can assist with deliverytiming recommendations if needed. Caron does not have a history of myomectomy - her operative note [id number] was reviewed today. Return to primary provider for continued care. If you have questions regarding today's evaluation or if we can be offurther service, please contact the Maternal- Medicine Center. anomalies may be present but not detected I spent a total of 25 minutes (excluding the ultrasound interpretation) onthe date of this encounter including preparing to see the patient(reviewing medical records/tests), in direct lctg-ne-bosu contact with the patient counseling and discussingthe plan of care, documenting the visit in the electronic medical record,and communicating with other health wound care technician and/or care coordination. IMPRESSION ----- 1. Amaral [...] long and closed. us Ro Ford MD [facility] US ORDERABLES Edit ed Result - Final documented in this encounter Visit Diagnoses Diagnosis related condition, antepartum- Primary related condition, antepartum documented in this encounter Care Teams Engineering Supervisor Relationship Specialty Start Date End Date System, Provider Not In PCP - General Clinic 02/19/23 Daisy Beebe PA-C [address] [facility] [address] [place], [place] [address] Assigned PCP 08/25/22 Nilam Beal MD [address] [facility] [address] [place], [place] [address] Cardiovascular Disease 02/21/23 documented as of this encounter
--- OUTSIDE RECORDS SUMMARY | 2025-03-20 21:33 | XMS_ITS | Clinical Summary ---
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 12/10/2005 Generalized anxiety disorder 05/21/2002 12/10/2005 Encounters Date Type Department Care Team Description 03/19/2025 11:30 AM CDT Office Visit [facility] [address] [place] [address] Kitty Dennis MD Obesity during (Primary Dx); Chronic hypertension in ; Suspected anomaly, antepartum, single or unspecified fetus 03/19/2025 11:00 AM CDT Ancillary Procedure [facility] [address] [place] [address] Kitty Dennis MD Obesity during ; Chronic hypertension in 03/19/2025 Travel 03/19/2025 Orders Only [facility] [address] [place] [phone] Ofelia Macedo MD Obesity during (Primary Dx); Chronic hypertension in 03/05/2025 10:00 AM CDT Office Visit [facility] [address] [place] [address] Ro Ford MD Hoover, Elizabeth, MD Chronic hypertension in (Primary Dx); Obesity during ; Encounter for anatomic survey; History of section; related condition in second trimester 03/05/2025 8:58 AM CDT - 03/05/2025 11:59 PM CDT Hospital Encounter [facility] [address] [place] [phone] Ro Ford MD Hoover, Elizabeth, MD related condition, antepartum Discharge Disposition: Home or Self Care 03/05/2025 Travel 02/26/2025 PRE VISIT [facility] [address] [phone] Ofelia Lucero, RN Ultrasound (L2- CHTN, obesity, bipolar, sinus tachycardia, suboptimal outside [place]) 02/21/2025 Transcribe Orders [facility] [address] [phone] Ro Ford MD related condition, antepartum (Primary Dx) 02/20/2025 Medical Correspondence [facility] [address] [place] [address] [address] [place] [address] Scan, Non-Provider 02/20/2025 Transcribe Orders [facility] [address] [place] [address] Ro Ford MD related condition, antepartum (Primary Dx) from Last 3 Months Immunizations Immunization Administration [...] on file 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 Gender Identity Not on file Sexual Orientation Not on file Last Filed Vital Signs Vital Sign Reading Time Taken Comments Blood Pressure 121/69 03/05/2025 11:24 AM CDT Pulse 88 03/05/2025 11:24 AM CDT Temperature 36.6 C (97.8 F) 11/15/2024 3:26 PM CDT Respiratory Rate 16 11/15/2024 3:26 PM CDT Oxygen Saturation 99% 11/15/2024 3:26 PM CDT Inhaled Oxygen Concentration - - Weight 137.6 kg (303 lb 6.4 oz) 11/15/2024 3:26 PM CDT Height 172.7 cm (5' 8) 02/19/2023 10:3 9 AM CDT Body Mass Index 46.13 02/19/2023 10:39 AM CDT Plan of Treatment Upcoming Encounters Date Type Department Care Team (Late st Contact Info) Description 04/10/2025 9:30 AM CDT Ancillary Procedure [facility] [address] [phone] Kitty Dennis MD [address] [place], [place] [address] 04/10/2025 10:00 AM CDT Office Visit [facility] [address] [phone] Kitty Dennis MD [address] [place], [place] [phone] Health Maintenance Due Date Last Done Comments ADVANCE CARE PLANNING 1993 ANNUAL REVIEW OF HM ORDERS 1993 DEPRESSION ACTION PLAN 1993 PHQ-9 01/01/2014 07/04/2013 YEARLY PREVENTIVE VISIT 05/23/2024 05/23/20, 10/23/2021, 04/30/2020 MATERNAL SCREENING DISCUSSION 12/05/2024 OBGCT (OB) 03/13/2025 TDAP VACCINE () 04/03/2025 04/10/2013 INFLUENZA VACCINE (#1) 2025 , 05/17/2023, 05/15/2021, Additional history exists RSV VACCINE (1 - Risk 1-dose series) 05/08/2025 PAP 05/23/2026 05/23/2023, 04/30/2020 DTAP/TDAP/TD VACCINE (9 - Td or Tdap) 05/17/2033 05/17/2023, 10/14/2020, 04/10/2013, Additional history exists ZOSTER VACCINE (1 of 2) 2043 HPV VACCINE Completed 10/31/2008, 1110/2007, 04/04/2008 MENINGITIS VACCINE Completed 04/14/2011 HIV SCREENING Completed 10/18/2016 HEPATITIS C SCREENING Completed 04/30/2020, 015 COVID-19 VACCINE Completed 05/30/2024, 06/2023, 09/25/2021, Additional history exists HEPATITIS B VACCINE Completed 01/18/2025, 01/18/1995, 01/18/1995, Additional history exists PNEUMOCOCCAL VACCINE: PEDIATRICS (0 to 5 YEARS) AND AT-RISK PATIENTS (6 to 49 YEARS) Aged Out No longer eligible based on patient's age to complete this topic Procedures Procedure Name Priority Date/Time Associated Diagnosis Comments [facility] US COMPREHENSIVE SINGLE F/U Routine 03/19/2025 11:45 AM CDT Obesity during Chronic hypertension in [facility] US COMPREHENSIVE SINGLE Routine 03/05/2025 10:40 AM CDT related condition, antepartum from Last 3 Months Results * [facility] US Comprehensive Single F/U (03/19/2025 11:45 AM [...] ESTES Study Date: 03/19/2025 10:56am Pat. NO: [id number] Referring MD: RO FORD Site: Fiscal Services Director: Lisa Costello RDMS : 1995 Age: 29 [...] 1 lb 9 oz EFW by Hadlock ([id number]) Head / Face / Neck Biometry: Door Assembler 5.2 mm CM 5.1 mm Abdomen Biometry: [...] view. RVOT view. LVOT view. 3-vessel view. 3-hgtzlv-sumilxz view. Aortic arch view. Ductal arch view. [...] the patient (reviewing medical records/tests), in direct whxi-iw-scjf contact with the patient during the visit counseling and discussing the plan of care and documenting the visit in the electronic medical record. Procedure Note Kitty Dennis MD - 03/19/2025 Comp Follow Up ----- Pat. Name: CARON ESTES Study Date: 03/19/2025 10:56am Pat. NO: [id number] Referring MD: RO FORD Site: Fiscal Services Director: Lisa Costello RDMS : 1995 Age: 29 [...] EFW (lb,oz) 1 lb 9oz EFW by Hadlock([id number]) Head / Face / Neck Biometry: Door Assembler 5.2mm CM 5.1mm Abdomen Biometry: Stomach ap 6.0mm 5%Olvera Stomach tr 5.0mm <1%Olvera Stomach long 13.0mm 3%Olvera ANATOMY ----- Abdomen Stomach: Small stomach The following structures appear normal: Head / Neck Cranium. Head size. Head shape.Lateral ventricles. Midline falx. Cerebellum. Cisterna magna. Thalami. Face Lips. Profile. Nose. Heart / Thorax 4-chamber view. RVOT view. LVOT view.3-vessel view. 0-qgcxzk-qrhopxn view. Aortic arch view. Ductal archview. Right [...] chronic hypertension on medication, delivery is recommended [id number], unless otherwise clinically indicated sooner. Further ultrasound [...] see the patient(reviewing medical records/tests), in direct pbyu-tu-kmej contact with the patient during the visitcounseling [...] amniotic fluid volume appeared normal. us Ofelia [facility] US ORDERABLES Edited Result - Final * [facility] US Comprehensive Single (03/05/2025 10:40 AM CDT) [...] ESTES Study Date: 03/05/2025 9:35am Pat. NO: [id number] Referring MD: RO FORD Site: Fiscal Services Director: aJnusz Sampson RDMS : 1995 Age: 29 ----- [...] 1 lb 1 oz EFW by Hadlock ([id number]) Head / Face / Neck Biometry: Door Assembler 5.7 mm CM 7.7 mm Nasal bone [...] suboptimal apical view. RVOT view. 3-vessel view. 2-bfshcg-qonddjp view. Right lung. Left lung. The following [...] was at the 8% (on US in [place] EFW had been in the 55%). Thus, recommend return to [facility] in 2 weeks for growth assessment to ensure adequate interval growth and follow up suboptimal anatomy. Thereafter, recommend serial evaluation of growth q4 weeks starting at 28 weeks gestation and initiation of weekly surveillance at 32 weeks for chronic hypertension on medication. For chronic hypertension on medication, delivery is recommended at [id number]. MFM can assist with delivery timing recommendations [...] the patient (reviewing medical records/tests), in direct dzpu-fb-xmvj contact with the patient counseling and discussing the plan of care, documenting the visit in the electronic medical record, and communicating with other health tire care manager and/or care coordination. Procedure Note Ofelia Macedo MD - 03/06/2025 Comprehensive ----- Pat. Name: CARON ESTES Study Date: 03/05/2025 9:35am Pat. NO: [id number] Referring MD: RO FORD Site: Fiscal Services Director: Janusz Sampson RDMS : 1995 Age: 29 [...] EFW (lb,oz) 1 lb 1oz EFW by Hadlock([id number]) Head / Face / Neck Biometry: Door Assembler 5.7mm CM 7.7mm Nasal bone 6.8mm ANATOMY [...] view: suboptimal apicalview. RVOT view. 3-vessel view. 1-grrezw-yveafal view. Right lung. Left lung. The following [...] JENY was changed today to 07/03/25 by [id number]. She reports IUD removal in August 2024 (inadvertent removal athome) with some irregular bleeding thereafter. Had not resume normal cycling of menses prior togetting . She was using OPK to track ovulation and knows when sheovulated with JENY estimate of 07/02 or 07/03. Thus, in light of the above, will use [id number] for JENY. Prior to this change, EFW was at the 8% ([place] had been in the 55%). Thus, recommend return to MFM in 2 weeks for growth assessment toensure adequate interval growth and follow up suboptimal anatomy. Thereafter, recommend serial evaluation of growth q4 weeks startingat 28 weeks gestation and initiation of weekly surveillance at32 weeks for chronic hypertension on medication. For chronic hypertension on medication,delivery is recommended at [id number]. MFM can assist with deliverytiming recommendations if needed. Caron does not have a history of myomectomy - her operative note [id number] was reviewed today. Return to primary provider for continued care. If you have questions regarding today's evaluation or if we can be offurther service, please contact the [facility]. anomalies may be present but not detected I spent a total of 25 minutes (excluding the ultrasound interpretation) onthe date of this encounter including preparing to see the patient(reviewing medical records/tests), in direct qqcf-cs-aafa contact with the patient counseling and discussingthe plan of care, documenting the visit in the electronic medical record,and communicating with other health tire care manager and/or care coordination. IMPRESSION ----- 1. Amaral [...] long and closed. us Ro Ford MD [facility] ORDERABLES Edit ed Result - Final from Last 3 Months Insurance BCBS OUT OF STATE MEDICAID [place] Care Teams Helicopter Repairer Relationship Specialty Start Date End Date System, Provider Not In PCP - General Clinic 02/19/23 Daisy Beebe PA-C [address] [facility] [address] [place] [address] Assigned PCP 08/25/22 Nilam Beal MD [address] [facility] [address] [place] [address] Cardiovascular Disease 02/21/23 Ofelia Macedo MD [address] [address] Assigned Pediatric Specialist Provider 03/13/25
[2025-03-20 21:42] LABS: Troponin, Point-of-Care* 0.00 ng/ml (0.01-0.04)
[2025-03-20 22:02] LABS: Chloride* 107 mmol/L (96-114); Potassium* 3.9 mmol/L (3.6-5.1); Sodium* 134 mmol/L (135-149)
[2025-03-20 22:05] LABS: Anion Gap 7 mEq/L (7-15); Blood Urea Nitrogen* 8 mg/dL (5-24); Calcium* 9.3 mg/dL (8.4-10.6); Carbon Dioxide* 20 mmol/L (20-32); Creatinine* 0.4 mg/dL (0.5-1.5); Est. Creatinine Clearance* 212.97; Estimated Glomerular Filt Rate 136 ml/min; Glucose* 69 mg/dL (60-115)
== END 2025-03-20 22:47 | disposition home or self-care (01) ==
PROVIDERS: Emergency Provider Family Medicine; PCP Family Medicine
DX: R07.89 Other chest pain (principal); M25.512 Pain in left shoulder; F41.9 Anxiety disorder, unspecified
CPT/HCPCS: 36415; 80048; 84484; 85018; 93005; 99284

== ENCOUNTER 2025-03-22 14:44 | Outpatient (CLI) | payer BC, SELFPAY | END 2025-03-22 14:45 | disposition home or self-care (01) | LOC: NFLDREF 03-27 12:06 | PROVIDERS: PCP Family Medicine; Referring Provider Family Medicine; Visit Provider Obstetrics & Gynecology | DX: R35.0 Frequency of micturition (principal); O23.42 Unspecified infection of urinary tract in pregnancy, second trimester; N39.0 Urinary tract infection, site not specified; Z3A.25 25 weeks gestation of pregnancy | CPT/HCPCS: 87086 ==

== ENCOUNTER 2025-04-11 12:47 | Outpatient (CLI) | payer BC, SELFPAY | END 2025-04-11 12:48 | disposition home or self-care (01) | LOC: NFLDREF 04-16 13:48 | PROVIDERS: PCP Family Medicine; Referring Provider Family Medicine; Visit Provider Obstetrics & Gynecology | DX: O10.913 Unspecified pre-existing hypertension complicating pregnancy, third trimester (principal); O99.013 Anemia complicating pregnancy, third trimester; R80.9 Proteinuria, unspecified; D64.9 Anemia, unspecified; Z3A.28 28 weeks gestation of pregnancy | CPT/HCPCS: 82570; 82728; 84156; 86592; 87086 ==

== ENCOUNTER 2025-04-16 10:52 | Outpatient (CLI) | payer BC, SELFPAY ==
[2025-04-16] VITALS (20 sets, daily range): BP systolic 113–123; BP diastolic 64–66; PULSE 98–118; RESP 16; TEMP 36.7; O2SAT 96–100
--- NOTE | 2025-04-16 12:22 | CRLHL7_ITS ---
For Patients: As a result of the Century Cures Act, medical imaging exams and procedure reports are released immediately into your electronic medical record. You may view this report before your referring provider. If you have questions, please contact your health care provider. INDICATION: Decreased movement. TECHNIQUE: Ultrasound OB pelvis transabdominal. Real-time bruce-scale imaging of the fetus was performed without stress testing. COMPARISON: None. FINDINGS: heart rate: Regular, 149 bpm. position: Cephalic. Placenta: Anterior. Amniotic fluid volume single deepest pocket 5.3 cm, 2/2. motion 2/2. tone 2/2. breathing movements 2/2. IMPRESSION: Live intrauterine in vertex presentation with heart rate of 149 beats per minute. Biophysical profile 03/29. Dictated by Royce Cardoso MD @ 04/16/2025 1:19:26 PM (Electronically Signed)
[2025-04-16 12:27] LABS: Hematocrit 31.3 % (33.0-51.0); Hemoglobin* 10.1 gm/dL (12.0-16.0); Mean Corpuscular HGB Conc 32 gm/dL (32-36); Mean Corpuscular Hemoglobin 27 pg (26-34); Mean Corpuscular Volume 83 fL (80-100); Red Blood Count 3.77 m/uL (4.00-5.20); White Blood Count* 8.82 K/uL (4.50-11.00)
[2025-04-16 12:28] LABS: Slide Review Reflex No
[2025-04-16 12:41] LABS: Alanine Aminotransferase* 16 U/L (4-35); Aspartate Amino Transferase* 21 U/L (12-35); Blood Urea Nitrogen* 8 mg/dL (5-24); Creatinine* 0.5 mg/dL (0.5-1.5); Estimated Glomerular Filt Rate 129 ml/min
--- NOTE | 2025-04-16 14:12 | PC.OBNST ---
NST Note NST Note Start: 04/16/25 10:58 Freq: ONCE Status: Active Protocol: Document 04/16/25 14:08 VMM (Rec: 04/16/25 14:12 VMM [id number]) NST Note 4 Para (# of births) 1 EDC 07/03/25 Gestational Age In 28 Weeks & 6 Days Weeks & Days High Risk Factors High Blood Pressure - Gestational Patient Presented Decreased movement with Complaint(s) of Other Complaints Patient's main complaint is decreased movement, but also mentions pitting edema in the left side yesterday, a swollen upper lip this morning and a value of 0.39 protein in the urine last week. Reactive Yes Appropriate for Yes Gestational Age ZEN Ramos RN Date 04/16/25 Reactive Yes Appropriate for Yes Gestational Age ZEN Rutledge RN Date 04/16/25 OB NST charge Yes Complete NST Note Yes via Write Note The provider's electronic signature indicates the NST is reactive/appropriate for gestational age. *Note to provider: If an addendum is required, open the patient's chart and click on the note under the Nurse/Allied Health tab.
== END 2025-04-16 14:05 | disposition home or self-care (01) ==
LOC: OB OUT 10:52 → OB 10:53
PROVIDERS: PCP Family Medicine; Visit Provider Obstetrics & Gynecology
DX: O13.3 Gestational [pregnancy-induced] hypertension without significant proteinuria, third trimester (principal); O36.8130 Decreased fetal movements, third trimester, not applicable or unspecified; Z3A.28 28 weeks gestation of pregnancy
CPT/HCPCS: 36415; 59025; 76819; 82565; 84450; 84460; 84520; 85027; G0463

== ENCOUNTER 2025-04-18 08:08 | Outpatient (CLI) | payer BC, SELFPAY | END 2025-04-18 08:09 | disposition home or self-care (01) | LOC: NFLDREF 04-20 23:06 | PROVIDERS: PCP Family Medicine; Referring Provider Family Medicine; Visit Provider Obstetrics & Gynecology | DX: R73.09 Other abnormal glucose (principal) | CPT/HCPCS: 82951; 82952 ==

== ENCOUNTER 2025-04-24 09:17 | Outpatient (CLI) | payer BC, SELFPAY ==
--- NOTE | 2025-04-24 12:52 | W.PM.LAC.MC ---
Consult Note - Mom Date of Visit Date of visit: 04/24/25 Reason for consultation: Other ( consultation) Visit Code: Visit Patient's Information Phone number: [phone] : 4 Para: 1 (EDC 07/03/25) Allergies ibuprofen Allergy (Severe, Verified 04/24/25 10:47) Anaphylaxis kiwi Allergy (Severe, Verified 04/24/25 10:47) Difficulty Breathing levofloxacin Allergy (Severe, Verified 04/24/25 10:47) pyschosis moxifloxacin Allergy (Severe, Verified 04/24/25 10:47) psychosis pineapple Allergy (Severe, Verified 04/24/25 10:47) Difficulty Breathing ciprofloxacin (From Cipro) Allergy (Intermediate, Verified 04/24/25 10:47) Anxiety Sulfa (Sulfonamide Antibiotics) Allergy (Mild, Verified 04/24/25 10:47) Hives adhesive tape Allergy (Verified 04/24/25 10:47) Mother's medical history: Anxiety and Other (emergency with first delivery, gest diabetes, and gHTN on top of cHTN) Mother's Medical History: Medical History (Updated 04/24/25 @ 12:44 by Joyce Abrams CNM) Left sided sciatica ?M54.32 - Sciatica, left side (ICD-10) Cholelithiasis ?K80.20 - Calculus of gallbladder without cholecystitis without obstruction (ICD-10) Gestational diabetes (04/18/25) ?O24.419 - Gestational diabetes mellitus in , unspecified control (ICD-10) Abnormal uterine bleeding ?N93.9 - Abnormal uterine and vaginal bleeding, unspecified (ICD-10) Right upper quadrant pain ?R10.11 - Right upper quadrant pain (ICD-10) Obesity ?E66.9 - Obesity, unspecified (ICD-10) Sinus tachycardia ?R00.0 - Tachycardia, unspecified (ICD-10) PTSD (post-traumatic stress disorder) ?F43.10 - Post-traumatic stress disorder, unspecified (ICD-10) Panic disorder ?F41.0 - Panic disorder [episodic paroxysmal anxiety] (ICD-10) JUAN PABLO (obstructive sleep apnea) ?G47.33 - Obstructive sleep apnea (adult) (pediatric) (ICD-10) Depression ?F32.A - Depression, unspecified (ICD-10) Breast/Nipple Condition Breast Information: Breasts are symmetrical with rounded lower quadrants, intramammary distance is less than 1.5 inches. No erythema. Nipples are supple, everted prior to feeding. Nipples measured 17mm bilaterally Breast Shape: Round and Pendulous (slight) Maternal Nipple Condition - Left: Common Nipple Maternal Nipple Condition - Right: Common Nipple Assessments/Interventions Assessments/Interventions: Fay and her Kain here for consultation. She attempted to breastfeed her first child, who is not almost 8 years old, without much success. He never latched well; and she tried pumping but never got more than an oz ea breast; she notes her LEFT breast made more than her RIGHT. Complications with her first delivery included a long labor (>70 hrs), an emergency , and a high blood loss but she doesn't remember how much. She reports not getting much help with latching in the hospital. She is hoping for a different experience this time around and plans to exclusively breastfeed, at least for awhile before pumping and adding in bottles. Topics we discussed: the smith hour, skin to skin after , getting assist with latching, if desired, from the beginning. Mom would appreciate this. Discussed role of feeding baby frequently and adding in pumping if desired to stimulate milk supply. Discussed potential need for supplement if baby is LGA given her gestational diabetes; discussed donor breastmilk as an option depending on timing as well as formula. Answered questions re: pumps and bottles. Discussed flange size for 17mm nipples; however, be aware flange size can change throughout and after delivery. Education provided: Early feeding cues to maximize timing of latching, Asymmetric latch technique for wide/deep latch to increase milk, Transfer for baby and increase comfort for mom, Supply/demand nature of milk supply, Need for frequent stimulation/milk removal, Hand expression ( hand expression if allowed and bring colostrum to hospital when come to deliver), Alternative feeding methods (SNS, cup, finger feeding, bottling), Pumping for milk management and Milk collection, storage Follow-Up Suggested follow up: Appointment as needed Time Spent Time spent with patient (min): 60 Meds Home Medications and Allergies Home Medications ?Medication ?Instructions ?Recorded ?Confirmed ?Type citalopram 10 mg tablet 10 mg PO QDAY 07/18/24 04/24/25 History lamotrigine 100 mg tablet 200 mg PO DAILY 07/18/24 04/24/25 History docosahexaenoic acid 200 mg 200 mg PO DAILY 12/12/24 04/24/25 History capsule ( DHA) ferrous sulfate 325 mg (65 mg 325 mg PO Q OTHER DAY #60 tabs 02/09/25 04/24/25 Rx iron) tablet omeprazole 20 mg capsule,delayed 20 mg PO DAILY 02/09/25 04/24/25 History release aspirin 81 mg tablet 81 mg PO QDAY 02/15/25 04/24/25 History labetalol 100 mg tablet 100 mg PO TID #270 tabs 03/27/25 04/24/25 Rx Blood Glucose Meter #1 ea 04/18/25 04/24/25 Rx Test Strips #100 ea 04/18/25 04/24/25 Rx lancets #100 ea 04/18/25 04/24/25 Rx Allergies Allergy/AdvReac Type Severity Reaction Status Date / Time ibuprofen Allergy Severe Anaphylaxis Verified 04/24/25 10:47 kiwi Allergy Severe Difficulty Verified 04/24/25 10:47 Breathing levofloxacin Allergy Severe pyschosis Verified 04/24/25 10:47 moxifloxacin Allergy Severe psychosis Verified 04/24/25 10:47 pineapple Allergy Severe Difficulty Verified 04/24/25 10:47 Breathing ciprofloxacin (From Cipro) Allergy Intermediate Anxiety Verified 04/24/25 10:47 Sulfa (Sulfonamide Allergy Mild Hives Verified 04/24/25 10:47 Antibiotics) adhesive tape Allergy Verified 04/24/25 10:47
== END 2025-04-24 09:18 | disposition home or self-care (01) ==
LOC: OB LAC 09:18
PROVIDERS: PCP Family Medicine; Visit Provider Obstetrics & Gynecology
DX: Z39.1 Encounter for care and examination of lactating mother (principal)
CPT/HCPCS: G0463

== ENCOUNTER 2025-04-25 20:07 | Outpatient (CLI) | payer BC, SELFPAY ==
[2025-04-25 20:23] VITALS: BP 119/61; PULSE 116
[2025-04-25 20:26] VITALS: RESP 18; TEMP 36.9
--- NOTE | 2025-04-25 23:11 | PC.OBNST ---
NST Note NST Note Start: 04/25/25 23:07 Freq: ONCE Status: Active Protocol: Document 04/25/25 23:10 KRISTIN (Rec: 04/25/25 23:10 KRISTIN [id number]) NST Note 4 Para (# of births) 1 EDC 07/03/25 Gestational Age In 30 Weeks & 1 Days Weeks & Days High Risk Factors High Blood Pressure - Preexisting,Diabetes - Gestational Diet Controlled Patient Presented Decreased movement with Complaint(s) of Appropriate for Yes Gestational Age RN Harrison Vergara, RN Date 04/25/25 Appropriate for Yes Gestational Age ZEN Hui RN Date 04/25/25 OB NST charge Yes Complete NST Note Yes via Write Note The provider's electronic signature indicates the NST is reactive/appropriate for gestational age. *Note to provider: If an addendum is required, open the patient's chart and click on the note under the Nurse/Allied Health tab.
== END 2025-04-25 22:01 | disposition home or self-care (01) ==
LOC: OB OUT 20:07 → OB 20:08
PROVIDERS: PCP Family Medicine; Visit Provider Obstetrics & Gynecology
DX: O10.913 Unspecified pre-existing hypertension complicating pregnancy, third trimester (principal); O24.419 Gestational diabetes mellitus in pregnancy, unspecified control; O36.8130 Decreased fetal movements, third trimester, not applicable or unspecified; Z3A.30 30 weeks gestation of pregnancy
CPT/HCPCS: 59025; G0463

== ENCOUNTER 2025-04-28 19:02 | Outpatient (CLI) | payer BC, SELFPAY ==
[2025-04-28] VITALS (15 sets, daily range): BP systolic 107–130; BP diastolic 51–65; PULSE 93–107; RESP 18; TEMP 36.6; O2SAT 96–97
[2025-04-28 19:35] LABS: Appearance Urine Clear (Clear)
[2025-04-28 19:41] LABS: Hematocrit* 32.1 % (33.0-51.0); Hemoglobin* 10.6 gm/dL (12.0-16.0); Immature Granulocytes Pct Auto 1.6 %; Mean Corpuscular HGB Conc 33 gm/dL (32-36); Mean Corpuscular Hemoglobin 27 pg (26-34); Mean Corpuscular Volume 82 fL (80-100); RDW Coefficient of Variation % 14.9 % (11.5-15.5); Red Blood Count* 3.91 m/uL (4.00-5.20); White Blood Count* 11.42 K/uL (4.50-11.00)
[2025-04-28 19:47] LABS: Immature Granulocytes Abs Auto 0.20 K/uL (0.00-0.30); Lymphocytes Absolute Auto 1.80 K/uL (0.90-2.90); Slide Review Reflex No
[2025-04-28 19:58] LABS: Albumin* 3.5 g/dL (3.3-5.0); Chloride* 109 mmol/L (96-114); Potassium* 3.7 mmol/L (3.6-5.1); Sodium* 134 mmol/L (135-149)
[2025-04-28 20:01] LABS: Alanine Aminotransferase* 29 U/L (4-35); Alkaline Phosphatase* 70 U/L (40-150); Anion Gap 7 mEq/L (7-15); Aspartate Amino Transferase* 30 U/L (12-35); Bilirubin Total* 0.3 mg/dL (0.1-1.5); Blood Urea Nitrogen* 13 mg/dL (5-24); Calcium* 9.8 mg/dL (8.4-10.6); Carbon Dioxide* 18 mmol/L (20-32); Creatinine* 0.6 mg/dL (0.5-1.5); Estimated Glomerular Filt Rate 123 ml/min; Glucose* 111 mg/dL (60-115); Total Protein* 6.8 g/dL (6.0-8.3)
[2025-04-28 20:16] LABS: Amnisure Rom* Negative
[2025-04-28] MEDS: ACETAMINOPHEN 500 MG TABLET 1000 MG PO (20:45)
[2025-04-28] MEDS: METOCLOPRAMIDE 10 MG TABLET PO (20:46)
--- NOTE | 2025-04-28 22:36 | PC.OBNST ---
NST Note NST Note Start: 04/28/25 19:20 Freq: ONCE Status: Active Protocol: Document 04/28/25 21:35 KINDRA (Rec: 04/28/25 22:34 KINDRA No Response) NST Note 4 Para (# of births) 1 EDC 07/03/25 Gestational Age In 30 Weeks & 4 Days Weeks & Days High Risk Factors High Blood Pressure - Preexisting,Diabetes - Gestational Diet Controlled Patient Presented Nausea and vomiting,Headache with Complaint(s) of Other Complaints Lightheadedness, dizziness, headache (6/10; behind left eye, throbbing), nausea, and RUQ pain (3/10) Reactive Yes Appropriate for Yes Gestational Age ZEN Galdamez, RNC Date 04/28/25 Reactive Yes Appropriate for Yes Gestational Age ZEN Ruiz, RNC Date 04/28/25 OB NST charge Yes Complete NST Note Yes via Write Note The provider's electronic signature indicates the NST is reactive/appropriate for gestational age. *Note to provider: If an addendum is required, open the patient's chart and click on the note under the Nurse/Allied Health tab.
== END 2025-04-28 21:41 | disposition home or self-care (01) ==
LOC: OB OUT 19:04 → OB 19:05
PROVIDERS: PCP Family Medicine; Visit Provider Obstetrics & Gynecology
DX: O26.893 Other specified pregnancy related conditions, third trimester (principal); R42 Dizziness and giddiness; R51.9 Headache, unspecified; R11.2 Nausea with vomiting, unspecified; O24.313 Unspecified pre-existing diabetes mellitus in pregnancy, third trimester; Z3A.30 30 weeks gestation of pregnancy
CPT/HCPCS: 36415; 59025; 80053; 81001; 81003; 84112; 85025; G0463; A9270

== ENCOUNTER 2025-04-30 15:32 | Outpatient (CLI) | payer BC, SELFPAY ==
[2025-04-30 15:36] VITALS: PULSE 108; O2SAT 97
[2025-04-30 15:41] VITALS: PULSE 103; O2SAT 98
[2025-04-30 15:46] VITALS: BP 136/69; PULSE 103
[2025-04-30 15:55] VITALS: RESP 16; TEMP 37.1
[2025-04-30 16:03] VITALS: BP 134/58; PULSE 96
[2025-04-30 16:18] VITALS: BP 131/60; PULSE 107
--- NOTE | 2025-04-30 16:29 | PC.OBNST ---
NST Note NST Note Start: 04/30/25 16:27 Freq: ONCE Status: Active Protocol: Document 04/30/25 16:28 CAROLYN (Rec: 04/30/25 16:29 CAROLYN [id number]) NST Note 4 Para (# of births) 1 EDC 07/03/25 Gestational Age In 30 Weeks & 6 Days Weeks & Days High Risk Factors High Blood Pressure - Preexisting,Diabetes - Gestational Insulin Patient Presented Decreased movement with Complaint(s) of Reactive Yes Appropriate for Yes Gestational Age ZEN Sher RN Date 04/30/25 Reactive Yes Appropriate for Yes Gestational Age ZEN Aldana RN Date 04/30/25 OB NST charge Yes Complete NST Note Yes via Write Note The provider's electronic signature indicates the NST is reactive/appropriate for gestational age. *Note to provider: If an addendum is required, open the patient's chart and click on the note under the Nurse/Allied Health tab.
== END 2025-04-30 16:25 | disposition home or self-care (01) ==
LOC: OB OUT 15:32 → OB 15:32
PROVIDERS: PCP Family Medicine; Visit Provider Obstetrics & Gynecology
DX: O24.419 Gestational diabetes mellitus in pregnancy, unspecified control (principal); O36.8130 Decreased fetal movements, third trimester, not applicable or unspecified; O10.913 Unspecified pre-existing hypertension complicating pregnancy, third trimester; Z3A.30 30 weeks gestation of pregnancy
CPT/HCPCS: 59025; G0463

== ENCOUNTER 2025-05-03 20:09 | Outpatient (CLI) | payer BC, SELFPAY ==
[2025-05-03 20:18] VITALS: PULSE 101; O2SAT 99
[2025-05-03 20:19] VITALS: BP 129/69; PULSE 99; RESP 16; TEMP 36.7
--- NOTE | 2025-05-03 21:27 | CRLHL7_ITS ---
For Patients: As a result of the Century Cures Act, medical imaging exams and procedure reports are released immediately into your electronic medical record. You may view this report before your referring provider. If you have questions, please contact your health care provider. INDICATION: Lower abdominal pain, breech. TECHNIQUE: Ultrasound OB pelvis transabdominal. Real-time bruce-scale imaging of the fetus was performed without stress testing. COMPARISON: OB ultrasound 04/16/2025. FINDINGS: Sonographic imaging demonstrates a single living intrauterine gestation. Fetus demonstrates a regular cardiac rate of 161 beats per minute. Fetus has a breech orientation. Anterior placenta. Amniotic fluid volume single deepest pocket 3.5 cm 2/2. motion 2/2. tone 2/2. breathing movements 2/2. IMPRESSION: Single viable intrauterine with a biophysical profile 03/29. Breech presentation. Dictated by Dhruv Koch MD @ 05/03/2025 11:20:47 PM (Electronically Signed)
[2025-05-03 22:00] LABS: Appearance Urine Clear (Clear)
[2025-05-03 22:24] LABS: Hematocrit* 30.1 % (33.0-51.0); Hemoglobin* 10.0 gm/dL (12.0-16.0); Immature Granulocytes Abs Auto 0.16 K/uL (0.00-0.30); Immature Granulocytes Pct Auto 1.7 %; Mean Corpuscular HGB Conc 33 gm/dL (32-36); Mean Corpuscular Hemoglobin 27 pg (26-34); Mean Corpuscular Volume 83 fL (80-100); RDW Coefficient of Variation % 15.2 % (11.5-15.5); Red Blood Count* 3.65 m/uL (4.00-5.20); White Blood Count* 9.67 K/uL (4.50-11.00)
[2025-05-03 22:26] LABS: Lymphocytes Absolute Auto 1.80 K/uL (0.90-2.90); Slide Review Reflex No
--- NOTE | 2025-05-03 23:03 | PC.OBNST ---
NST Note NST Note Start: 05/03/25 20:13 Freq: ONCE Status: Discharge Protocol: Document 05/03/25 20:13 RRP (Rec: 05/03/25 23:03 RRP No Response) NST Note 2 Para (# of births) 1 EDC 07/03/25 Gestational Age In 31 Weeks & 2 Days Weeks & Days Patient Presented Pain with Complaint(s) of If Pain, describe in or under incision location Reactive Yes Appropriate for Yes Gestational Age ZEN Parkinson RN Date 05/03/25 Reactive Yes Appropriate for Yes Gestational Age ZEN Nava RN Date 05/03/25 OB NST charge Yes Complete NST Note Yes via Write Note The provider's electronic signature indicates the NST is reactive/appropriate for gestational age. *Note to provider: If an addendum is required, open the patient's chart and click on the note under the Nurse/Allied Health tab.
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
== END 2025-05-03 22:55 | disposition home or self-care (01) ==
LOC: OB OUT 20:09 → OB 20:10
PROVIDERS: PCP Family Medicine; Visit Provider Obstetrics & Gynecology
DX: O26.899 Other specified pregnancy related conditions, unspecified trimester (principal); R10.9 Unspecified abdominal pain
CPT/HCPCS: 36415; 59025; 76819; 81001; 81003; 85025; G0463

== ENCOUNTER 2025-05-08 12:06 | Outpatient (CLI) | payer BC, SELFPAY | END 2025-05-08 12:07 | disposition home or self-care (01) | LOC: NFLDREF 05-14 17:03 | PROVIDERS: PCP Family Medicine; Referring Provider Family Medicine; Visit Provider Obstetrics & Gynecology | DX: O12.13 Gestational proteinuria, third trimester (principal); O10.913 Unspecified pre-existing hypertension complicating pregnancy, third trimester | CPT/HCPCS: 82565; 82570; 84156; 84450; 84460; 84520 ==

== ENCOUNTER 2025-05-08 12:10 | Outpatient (CLI) | payer BC, SELFPAY ==
--- NOTE | 2025-05-08 12:15 | CRLHL7_ITS ---
For Patients: As a result of the Century Cures Act, medical imaging exams and procedure reports are released immediately into your electronic medical record. You may view this report before your referring provider. If you have questions, please contact your health care provider. OB ULTRASOUND JENY by US: 07/03/2025. GA: 32 w, 0 d. Single. Comparison: 05/03/2025, 04/16/2025, 03/19/2025. INDICATION: CHTN, GDM, Obesity. TECHNIQUE: Real time grayscale imaging of the fetus was performed. Transabdominal. CERVIX: Not visualized. POSITIONING: Vertex. AMNIOTIC FLUID: 5.2 cm. SDP (N: greater than 2 x 1 cm) BIOPHYSICAL PROFILE: 2: Gross body movements 2: tone 2: Respiratory activity 2: Amniotic fluid SDP (N: greater than 2 x 1 cm) 03/29: Total score PLACENTA: Technique: Transabdominal. PLACENTA POSITION: Anterior. DOPPLER: heart rate: 155 bpm. BIOMETRY: BPD: 8.3 cm. 33 w, 3 d, 82.4 percent. HC: 31.5 cm. 35 w, 3 d, 92.6 percent. AC: 30.9 cm. 34 w, 6 d, >97 percent. FL: 6.1 cm. 31 w, 6 d, 31.7 percent. FL/AC ratio: 19.85 percent. HC/AC ratio: 1.02. EFW: 2309 g. Weight: 5 lbs, 1 oz. age by this US: 33 w, 6 d. EJNY by this US: 06/20/2025. Percentile by JENY: 92.5 percent. IMPRESSION: 1. Normal biophysical profile score 8/8. 2. Sonographic gestational age 33 weeks 6 days and sonographic due date 06/20/2025. Sonographic age is 13 days ahead of the clinical age. 3. Estimated weight 93rd percentile. Abdominal circumference greater than 97th percentile. Jah Goldberg M.D. Diagnostic Radiologist [email or web address] [email or web address] butts/Dictated by: Jah Goldberg MD @ 05/08/2025 3:06:00 PM (Electronically Signed)
== END 2025-05-08 12:11 | disposition home or self-care (01) ==
LOC: US 12:11
PROVIDERS: PCP Family Medicine; Visit Provider Obstetrics & Gynecology
DX: O10.919 Unspecified pre-existing hypertension complicating pregnancy, unspecified trimester (principal); O12.10 Gestational proteinuria, unspecified trimester
CPT/HCPCS: 76816; 76819

== ENCOUNTER 2025-05-11 17:07 | Outpatient (CLI) | payer BC, SELFPAY ==
[2025-05-11 17:24] VITALS: BP 121/65; PULSE 109
[2025-05-11 17:29] VITALS: RESP 17; TEMP 36.9
--- NOTE | 2025-05-11 18:17 | CRLHL7_ITS ---
For Patients: As a result of the Century Cures Act, medical imaging exams and procedure reports are released immediately into your electronic medical record. You may view this report before your referring provider. If you have questions, please contact your health care provider. INDICATION: Decreased movements. TECHNIQUE: Ultrasound OB pelvis transabdominal. Real-time bruce-scale imaging of the fetus was performed without stress testing. COMPARISON: OB ultrasound 05/08/2025. FINDINGS: Sonographic imaging demonstrates a single living intrauterine gestation. Fetus demonstrates a regular cardiac rate of 152 beats per minute. Fetus has a cephalic orientation. Anterior placenta. Amniotic fluid volume single deepest pocket 5.2 cm 2/2. motion 2/2. tone 2/2. breathing movements 2/2. IMPRESSION: Single viable intrauterine with a biophysical profile 03/29. Dictated by Dhruv Koch MD @ 05/11/2025 7:56:07 PM (Electronically Signed)
--- NOTE | 2025-05-11 18:35 | PC.OBNST ---
NST Note NST Note Start: 05/11/25 17:15 Freq: ONCE Status: Active Protocol: Document 05/11/25 18:34 [facility] (Rec: 05/11/25 18:35 [facility] No Response) NST Note 4 Para (# of births) 1 EDC 07/03/25 Gestational Age In 32 Weeks & 3 Days Weeks & Days High Risk Factors High Blood Pressure - Preexisting,Diabetes - Gestational Insulin Patient Presented Decreased movement with Complaint(s) of Reactive Yes Appropriate for Yes Gestational Age RN Severo RN Date 05/11/25 Reactive Yes Appropriate for Yes Gestational Age RN Kelby RN Date 05/11/25 OB NST charge Yes Complete NST Note Yes via Write Note The provider's electronic signature indicates the NST is reactive/appropriate for gestational age. *Note to provider: If an addendum is required, open the patient's chart and click on the note under the Nurse/Allied Health tab.
== END 2025-05-11 18:50 | disposition home or self-care (01) ==
LOC: OB OUT 17:07 → OB 17:08
PROVIDERS: PCP Family Medicine; Visit Provider Obstetrics & Gynecology
DX: O36.8190 Decreased fetal movements, unspecified trimester, not applicable or unspecified (principal)
CPT/HCPCS: 59025; 76819; G0463

== ENCOUNTER 2025-05-13 08:33 | Outpatient (CLI) | payer BC, SELFPAY | END 2025-05-13 08:34 | disposition home or self-care (01) | LOC: NFLDREF 05-16 08:31 | PROVIDERS: PCP Family Medicine; Referring Provider Family Medicine; Visit Provider Obstetrics & Gynecology | DX: O10.913 Unspecified pre-existing hypertension complicating pregnancy, third trimester (principal); O24.419 Gestational diabetes mellitus in pregnancy, unspecified control; Z3A.32 32 weeks gestation of pregnancy | CPT/HCPCS: 82565; 82570; 84156; 84450; 84460 ==

== ENCOUNTER 2025-05-14 10:17 | Outpatient (CLI) | payer BC, SELFPAY | END 2025-05-14 10:18 | disposition home or self-care (01) | PROVIDERS: PCP Family Medicine; Visit Provider Obstetrics & Gynecology | DX: O24.419 Gestational diabetes mellitus in pregnancy, unspecified control (principal); O14.13 Severe pre-eclampsia, third trimester; Z3A.32 32 weeks gestation of pregnancy | CPT/HCPCS: 82565; 82570; 84156; 84450; 84460; 84520 ==

== ENCOUNTER 2025-05-14 11:09 | Outpatient (CLI) | payer BC, SELFPAY ==
--- NOTE | 2025-05-14 11:30 | CRLHL7_ITS ---
For Patients: As a result of the Cures Act, medical imaging exams and procedure reports are released immediately into your electronic medical record. You may view this report before your referring provider. If you have questions, please contact your health care provider. OB ULTRASOUND JENY by LMP or JENY by US: 07/03/2025. GA: 32 w, 6 d. Single. INDICATION: HTN. Inconsistent variables on NST. TECHNIQUE: Real time grayscale imaging of the fetus was performed. Transabdominal. CERVIX: Not visualized. POSITIONING: Vertex. AMNIOTIC FLUID: 6.5 cm. SDP (N: greater than 2 x 1 cm) BIOPHYSICAL PROFILE: 2: Gross body movements 2: tone 2: Respiratory activity 2: Amniotic fluid SDP (N: greater than 2 x 1 cm) 8/8: Total score PLACENTA: Technique: Transabdominal. PLACENTA POSITION: Anterior. DOPPLER: heart rate: 130 bpm. IMPRESSION: Normal biophysical profile score 8/8. Jah Goldberg M.D. Diagnostic Radiologist [email or web address] [email or web address] butts/Dictated by: Jah Goldberg MD @ 05/14/2025 3:45:00 PM (Electronically Signed)
== END 2025-05-14 11:10 | disposition home or self-care (01) ==
LOC: US 11:09
PROVIDERS: PCP Family Medicine; Visit Provider Obstetrics & Gynecology
DX: O10.913 Unspecified pre-existing hypertension complicating pregnancy, third trimester (principal); Z3A.32 32 weeks gestation of pregnancy
CPT/HCPCS: 76819

== ENCOUNTER 2025-05-14 11:47 | Outpatient (CLI) | payer BC, SELFPAY ==
[2025-05-14] VITALS (24 sets, daily range): BP systolic 110–138; BP diastolic 56–72; PULSE 105–118; TEMP 37.1; O2SAT 94–97
[2025-05-14] MEDS: LACTATED RINGERS 1000 ML 1,000 ML 75 ML IV (12:05)
[2025-05-14] MEDS: MAGNESIUM IV 4 GM/100 ML PIGGYBACK IVPB (12:08)
[2025-05-14] MEDS: MAGNESIUM Infusion 40 GM/1,000 ML IV.SOLN IVPB (12:43)
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
--- NOTE | 2025-05-14 16:31 | PC.OBNST ---
NST Note NST Note Start: 05/14/25 12:01 Freq: ONCE Status: Discharge Protocol: Document 05/14/25 15:57 ALZ (Rec: 05/14/25 16:00 ALZ No Response) NST Note 4 Para (# of births) 1 EDC 07/03/25 Gestational Age In 32 Weeks & 6 Days Weeks & Days High Risk Factors Diabetes - Gestational Insulin Patient Presented Other with Complaint(s) of Other Complaints pre-eclampsia with severe features Reactive Yes Appropriate for Yes Gestational Age ZEN Black Date 05/14/25 Reactive Yes Appropriate for Yes Gestational Age ZEN Gonzalez Date 05/14/25 OB NST charge Yes Complete NST Note Yes via Write Note The provider's electronic signature indicates the NST is reactive/appropriate for gestational age. *Note to provider: If an addendum is required, open the patient's chart and click on the note under the Nurse/Allied Health tab.
== END 2025-05-14 15:35 | disposition other institution (70) ==
LOC: OB OUT 11:48 → OB 11:48
PROVIDERS: PCP Family Medicine; Visit Provider Obstetrics & Gynecology
DX: O14.10 Severe pre-eclampsia, unspecified trimester (principal); Z3A.32 32 weeks gestation of pregnancy; O24.419 Gestational diabetes mellitus in pregnancy, unspecified control; O10.913 Unspecified pre-existing hypertension complicating pregnancy, third trimester
CPT/HCPCS: 59025; 83735; G0463; J3475; J7120

== ENCOUNTER 2025-05-20 15:36 | Emergency (ER) | payer BC, SELFPAY ==
--- OUTSIDE RECORDS SUMMARY | 2025-04-10 09:30 | XMS_ITS | Encounter Summary ---
Author Organization [place] Address [facility] [place] [address] Care Team Providers Care Scalemaker Name Role Phone Daisy Beebe PA-C Unavailable [phone] System, Provider Not In Primary Care Provider Un available Nilam Beal MD Unavailable Ofelia Macedo MD Unavailable Reason for Visit * Diagnostic Imaging Ultrasound (Routine) - Pending Review Specialty Diagnoses / Procedures Referred By Lewis dominguez Referred To Contact Radiology. Diagnoses Obesity during Chronic hypertension in Procedures [facility] US Comprehensive Single F/U Kitty Dennis MD [address] [place] [address] Phone: tel: fax: Referral ID Status Reason Start Date Expiration Date V isits Requested Visits Authorized [id number] Pending Review 03/19/2025 03/19/2026 1 1 Encounter Details Date Type Department Care Team (Latest Contact Info) Description 04/10/2025 9:30 AM CDT Ancillary Procedure [facility] [address] [phone] Kitty Dennis MD [address] [place] [address] Obesity during ; Chronic hypertension in Social History Tobacco Use Types Packs/Day Years Used Date Smoking Tobacco: Former Cigarettes Q uit: 09/22/2021 Smokeless Tobacco: Never Adolescent Education Answer Date Record ed Getting School Help Needed Not on file 05/23 Comments Yes Sex and Gender Information Value Date Recorded Sex Assigned at Not on file 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 Gender Identity Not on file Sexual Orientation Not on file documented as of this encounter Plan of Treatment Upcoming Encounters Date Type Department Care Team (Late st Contact Info) Description 05/23/2025 8:00 AM CDT Appointment [facility] [address] [place] [phone] Delaney Watkins MD [address] [place] [address] 05/23/2025 1:45 PM CDT Office Visit [facility] [place] [address] [place] [facility] [address] [place] [phone] Annmarie Rodrigues MD [address] [place] [address] Scheduled Procedures Name Priority Associated Diagnoses Date/Ti me SECTION Chronic hypertension with superimposed preeclampsia documented as of this encounter Procedures Procedure Name Priority Date/Time Associated Diagnosis Comments [facility] US COMPREHENSIVE SINGLE F/U Routine 04/10/2025 9:57 AM CDT Obesity during Chronic hypertension in documented in this encounter Results * [facility] US Comprehensive Single F/U (04/10/2025 9:57 AM CDT) Anatomical Region Laterality Modality Ultrasound 04/10/2025 9:22 AM CDT Impressions 04/10/2025 11:33 AM CDT IMPRESSION ----- 1. Amaral at 28w 0d gestational age. 2. The stomach bubble appeared normal. None of the anomalies commonly detected by ultrasound were evident in the limited anatomic survey as described above. 3. Growth parameters and estimated weight were appropriate for gestational age. 4. The amniotic fluid volume appeared normal. Narrative 04/10/2025 11:33 AM CDT Comp Follow Up ----- Pat. Name: CARON ESTES Study Date: 04/10/2025 9:22am Pat. NO: [id number] Referring MD: XAVIER CABELLO Site: Clinical Specialist: Lisa Costello RDMS : 1995 Age: 29 ----- INDICATION ----- BMI > 40 Chronic hypertension on labetalol Obstructive sleep apnea Sinus tachycardia Cholelithiasis History of hysteroscopy with Myosure polyp removal in 2020, concurrent laparoscopy with cautery of endometriosis METHOD ----- Transabdominal ultrasound examination. View: Sufficient ----- Amaral . Number of fetuses: 1 DATING ----- Date Details Gest. age JENY LMP 09/23/2024 28 w + 3 d 06/30/2025 Previous U/S 11/23/2024 GA, GA 8 w + 2 d 28 w + 0 d 07/03/2025 U/S 04/10/2025 based upon AC, BPD, Femur, HC 29 w + 6 d 06/20/2025 Assigned dating based on ultrasound (GA), selected on 03/05/2025 28 w + 0 d 07/03/2025 GENERAL EVALUATION ----- Cardiac activity present. FHR 151 bpm. movements: present. Presentation: cephalic Placenta: Anterior, No Previa, > 2 cm from internal os Umbilical cord: Cord vessels: 3 vessel cord Amniotic fluid: normal MVP, MVP 5.0 cm BIOMETRY ----- BPD 75.8 mm 30w 3d Hadlock OFD 101.5 mm 29w 6d Nicolaides HC 288.0 mm 31w 5d Hadlock Cerebellum tr 35.2 mm 30w 1d Nicolaides AC 255.4 mm 29w 5d 88% Hadlock Femur 51.2 mm 27w 3d Hadlock Weight Calculation: EFW 1,352 g 81% Hadlock EFW (lb,oz) 3 lb 0 oz EFW by Hadlock ([id number]) Head / Face / Neck Biometry: Quarry Supervisor Dimension Stone 3.7 mm CM 9.0 mm ANATOMY ----- The following structures appear normal: Head / Neck Cranium. Head size. Head shape. Lateral ventricles. Midline falx. Cavum septi pellucidi. Cerebellum. Cisterna magna. Thalami. Face Lips. Profile. Nose. Heart / Thorax 3-unoqqj-bggxueg view. Diaphragm. Abdomen Stomach. Kidneys. Bladder. Spine Cervical spine. Thoracic spine. Lumbar spine. Sacral spine. The following structures were documented previously: Heart / Thorax 4-chamber view. RVOT view. LVOT view. sex: male. MATERNAL STRUCTURES ----- Cervix Suboptimal Right Ovary Not examined Left Ovary Not examined RECOMMENDATION ----- Thank-you for referring your patient for ultrasound assessment. I discussed the findings on today's ultrasound with the patient. We discussed that stomach bubble appeared normal today, which is reassuring. The EFW was in the normal range though there was more than expected interval growth. This will continue to be monitored with serial growth ultrasounds. Recommendations/plan: - Serial evaluation of growth q4 weeks. - Weekly surveillance at 32 weeks for chronic hypertension on medication. - For chronic hypertension on medication, delivery is recommended at 37w0d- 39w0d, unless otherwise clinically indicated sooner. - We presume that future ultrasound assessments will be done in your clinic unless otherwise specified. Return to primary provider for continued care. If you have questions regarding today's evaluation or if we can be of further service, please contact the [facility]. anomalies may be present but not detected I spent a total of 10 minutes (excluding the ultrasound interpretation) on the date of this encounter including preparing to see the patient (reviewing medical records/tests), in direct lcac-xg-laie contact with the patient during the visit counseling and discussing the plan of care and documenting the visit in the electronic medical record. Procedure Note Kitty Dennis MD - 04/10/2025 Comp Follow Up ----- Pat. Name: CARON ESTES Study Date: 04/10/2025 9:22am Pat. NO: [id number] Referring MD: XAVIER CABELLO Site: Clinical Specialist: Lisa Costello RDMS : 1995 Age: 29 ----- INDICATION ----- BMI > 40 Chronic hypertension on labetalol Obstructive sleep apnea Sinus tachycardia Cholelithiasis History of hysteroscopy with Myosure polyp removal in 2020, concurrentlaparoscopy with cautery of endometriosis METHOD ----- Transabdominal ultrasound examination. View: Sufficient ----- Amaral . Number of fetuses: 1 DATING ----- DateDetailsGest. age JENY LMP w + 3 d 06/30/2025 Previous U/S 11/23/2024 GA, GA8 w + 2 d28 w + 0 d 07/03/2025 U/S 5based upon AC, BPD, Femur, HC29 w + 6 d 06/20/2025 Assigned dating based on ultrasound (GA), selected on03/05/2025 28w + 0 d 07/03/2025 GENERAL EVALUATION ----- Cardiac activity present. FHR 151 bpm. movements: present.Presentation: cephalic Placenta: Anterior, No Previa, > 2 cm from internal os Umbilical cord: Cord vessels: 3 vessel cord Amniotic fluid: normal MVP, MVP 5.0 cm BIOMETRY ----- BPD 75.8mm 30w 3dHadlock OFD 101.5mm 29w 6dNicolaides HC 288.0mm 31w 5dHadlock Cerebellum tr 35.2mm 30w 1dNicolaides AC 255.4mm 29w 5d 88%Hadlock Femur 51.2mm 27w 3dHadlock Weight Calculation: EFW 1,352g 81%Hadlock EFW (lb,oz) 3 lb 0oz EFW by Hadlock([id number]) Head / Face / Neck Biometry: Quarry Supervisor Dimension Stone 3.7mm CM 9.0mm ANATOMY ----- The following structures appear normal: Head / Neck Cranium. Head size. Head shape.Lateral ventricles. Midline falx. Cavum septi pellucidi. Cerebellum.Cisterna magna. Thalami. Face Lips. Profile. Nose. Heart / Thorax 4-hfxjrf-jyaplen view. Diaphragm. Abdomen Stomach. Kidneys. Bladder. Spine Cervical spine. Thoracic spine.Lumbar spine. Sacral spine. The following structures were documented previously: Heart / Thorax 4-chamber view. RVOT view. LVOTview. sex: male. MATERNAL STRUCTURES ----- Cervix Suboptimal Right Ovary Not examined Left Ovary Not examined RECOMMENDATION ----- Thank-you for referring your patient for ultrasound assessment. Idiscussed the findings on today's ultrasound with the patient. We discussed that stomach bubble appeared normal today, which isreassuring. The EFW was in the normal range though there was more thanexpected interval growth. This will continue to be monitored with serial growth ultrasounds. Recommendations/plan: - Serial evaluation of growth q4 weeks. - Weekly surveillance at 32 weeks for chronic hypertension onmedication. - For chronic hypertension on medication, delivery is recommended [id number], unless otherwise clinically indicated sooner. - We presume that future ultrasound assessments will be done in yourclinic unless otherwise specified. Return to primary provider for continued care. If you have questions regarding today's evaluation or if we can be offurther service, please contact the [facility]. anomalies may be present but not detected I spent a total of 10 minutes (excluding the ultrasound interpretation) onthe date of this encounter including preparing to see the patient(reviewing medical records/tests), in direct iqpf-nj-yugx contact with the patient during the visitcounseling and discussing the plan of care and documenting the visit inthe electronic medical record. IMPRESSION ----- 1. Amaral at 28w 0d gestational age. 2. The stomach bubble appeared normal. None of the anomalies commonlydetected by ultrasound were evident in the limited anatomic surveyas described above. 3. Growth parameters and estimated weight were appropriate forgestational age. 4. The amniotic fluid volume appeared normal. us Kitty Dennis MD [facility] US ORDERABLES Edited Result - Final documented in this encounter Visit Diagnoses Diagnosis Obesity during Chronic hypertension in Benign essential hypertension complicating , childbirth, and the puerperium, unspecified as to episode of care documented in this encounter Care Teams Scalemaker Relationship Specialty Start Date End Date System, Provider Not In PCP - General Clinic 02/19/23 Daisy Beebe PA-C [address] [place], [place] [id number] Assigned PCP 08/25/22 Nilam Beal MD [address] [facility] [address] [place], [place] [id number] Cardiovascular Disease 02/21/23 Ofelia Macedo MD [address] [place] [address] Assigned Pediatric Specialist Provider 03/13/25 documented as of this encounter
--- OUTSIDE RECORDS SUMMARY | 2025-04-10 10:00 | XMS_ITS | Encounter Summary ---
Author Organization [facility] Address [facility] [place] [address] Care Team Providers Care Can Dragger Name Role Phone Daisy Beebe PA-C Unavailable + [phone] System, Provider Not In Primary Care Provider Un available Nilam Beal MD Unavailable Ofelia Macedo MD Unavailable [phone] Reason for Visit * Reason Comments Ultrasound RL2- BMI 46, small f etal stomach, CHTN Encounter Details Date Type Department Care Team (Latest Contact Info) Description 04/10/2025 10:00 AM CDT Office Visit [facility] [address] [place] [address] Kitty Dennis MD [address] [address] [facility] [address] [place] [address] Suspected anomaly not found (Primary Dx); Chronic hypertension affecting ; Obesity affecting , antepartum, unspecified obesity type Social History Tobacco Use Types Packs/Day Years Used Date Smoking Tobacco: Former Cigarettes Q uit: 09/22/2021 Smokeless Tobacco: Never Adolescent Education Answer Date Record ed Getting School Help Needed Not on file 05/23 Comments Yes Sex and Gender Information Value Date Recorded Sex Assigned at Not on file Legal 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 Home BP assessed- states BP at home 115-143/70-80s. Patient denies headache, visual changes, nausea/vomiting, epigastric pain related to preeclampsia. Education provided to patient on RL2. SBAR given to RODNEY GALLOWAY, see their note in Epic. Светлана Kim RN documented in this encounter Plan of Treatment Upcoming Encounters Date Type Department Care Team (Late st Contact Info) Description 05/23/2025 8:00 AM CDT Appointment [facility] [address] [place] [phone] Delaney Watkins MD [address] [place] [phone] 05/23/2025 1:45 PM CDT Office Visit [facility] [address] 3rd [address] [facility] [address] [place] [phone] Annmarie Rodrigues MD [address] [place] [address] Scheduled Procedures Name Priority Associated Diagnoses Date/Ti me SECTION Chronic hypertension with superimposed preeclampsia documented as of this encounter Visit Diagnoses Diagnosis Suspected anomaly not found- Primary Chronic hypertension affecting Obesity affecting , antepartum, unspecified obesity type documented in this encounter Care Teams Can Dragger Relationship Specialty Start Date End Date System, Provider Not In PCP - General Clinic 02/19/23 Daisy Beebe PA-C [address] [place] [address] Assigned PCP 08/25/22 Nilam Beal MD [address] [place], [place] [id number] Cardiovascular Disease 02/21/23 Ofelia Macedo MD [address] [place], [place] [address] Assigned Pediatric Specialist Provider 03/13/25 documented as of this encounter
--- OUTSIDE RECORDS SUMMARY | 2025-04-16 10:30 | XMS_ITS | Encounter Summary ---
Author Organization [facility] Address [address] [place] [address] Care Team Providers Care Automobile Upholsterer Name Role Phone Elsewhere, Pcp Primary Care Provider Unavailabl e Reason for Visit * Appointment Request (Routine) - Closed Specialty Diagnoses / Procedures Referred By Contac t Referred To Contact Nephrology and Hypertension Referral ID Status Reason Start Date Expiration Date Visits Re quested Visits Authorized [id number] Closed 03/14/2025 06/14/2026 1 1 Encounter Details Date Type Department Care Team (Latest Contact Info) Description 04/16/2025 10:30 AM CDT External Outreach Division of Nephrology and Hypertension in [place], [place] [address] [place] [address] Geena Spears M.D., Ph.D. [address] [place] [phone] Hypertension Essential Primary (Primary Dx); Proteinuria Social History Tobacco Use Types Packs/Day Years [...] your living situation today? 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 - 04/16/2025 10:30 AM CDT PROGRESS NOTE The patient verbally consented to an audio recording of their visit to assist with the completion of documentation. [facility] Outreach Visit Location: [facility] SUBJECTIVE CHIEF COMPLAINT / REASON FOR VISIT Proteinuria during HISTORY OF PRESENT ILLNESS History of Present Illness Miss Kami Estes is a 29 year old female who presents for follow up. She is 28 weeks , turning 29 weeks tomorrow, and has experienced swelling in her left leg, which presents by the end of the day. The swelling is described as pitting edema and is more pronounced in the evening, with some improvement by the morning. Her blood pressure readings have been mostly normal, with morning readings in the 'hundred teens over the sixties' and evening readings around 'one thirty over seventy-eight to eighty'. She is currently taking labetalol at a dose of 100 mg three times a day. Recent lab results indicated an increase in her protein to creatinine ratio from 0.29 to 0.39 over the past two months. Her baby is reportedly in the 84th percentile according to a recent ultrasound. She has experienced nausea over the last couple of days. She feels decreased movements today, and will be evaluated after this visit. OBJECTIVE BP 124/64 DIAGNOSTICS I have reviewed available labs in detail with patient. ASSESSMENT / PLAN Assessment & Plan -related proteinuria Edema Hypertension She presents with new onset left leg pitting edema, primarily in the evening, with reduced swellingin the morning. This is likely due to normal changes. There is no current concern about the edema, which is only mild and improves after resting. Monitor blood pressure regularly, maintain a diet high in fruits and vegetables, avoid highly processed and overly salty foods, and continue healthy weight gain during . Increased protein to creatinine ratio Her protein to creatinine ratio increased from 0.29 to 0.39 over two months, likely due to increased abdominal pressure from . There is no current concern, but monitoring will continue. Repeat the protein to creatinine ratio in six weeks. She is aware that she is at risk to develop preeclampsia. Follow-up Plans are in place to see her again in May, considering her due date is July 03. documented in this encounter Plan of Treatment Not on file documented as of this encounter Visit Diagnoses Diagnosis Hypertension Essential Primary- Primary Proteinuria documented in this encounter Care Teams Automobile Upholsterer Relationship Specialty Start Date End Date Elsewhere, Pcp PCP - General Internal Medicine 03/01/24 documented as of this encounter
--- OUTSIDE RECORDS SUMMARY | 2025-05-14 16:47 | XMS_ITS | Encounter Summary ---
Author Organization [facility] Address [address] [place] [address]. [place] [address] Care Team Providers Care Manager Perioperative Name Role Phone Daisy Beebe PA-C Unavailable [phone] System, Provider Not In Primary Care Provider Un available Nilam Beal MD Unavailable Ofelia Macedo MD Unavailable [phone] Reason for Referral * Home Health Therapies & Aides (Routine: Next available opening) Specialty Diagnoses / Procedures Referred By Lewis dominguez Referred To Contact Diagnoses Chronic hypertension with superimposed preeclampsia [address] [address] Phone: tel: fax: Referral ID Status Reason Start Date Expiration Date Visits Re quested Visits Authorized Question Answer Please see patient within 96 hours of discharge Reason for Referral Routine, Blood Pressure Clinic Name and Callback Information for Results/Concerns [facility] Comments If your home visit was not scheduled during your hospital stay, you should receive a call from [facility] within 24 hours after discharge to schedule your ordered home visit. If you have not heard by then, please call [phone]. * Diagnostic Imaging XR (Routine) - Pending Review Specialty Diagnoses / Procedures Referred By Lewis dominguez Referred To Contact Radiology. Diagnoses S/P bladder repair Procedures X-ray Voiding cystogram Delaney Watkins MD [address] [place] [address] Phone: tel: fax: Referral ID Status Reason Start Date Expiration Date V isits Requested Visits Authorized [id number] Pending Review 05/16/2025 05/16/2026 1 1 Reason for Visit * Reason Comments Rule Out Pre-eclampsia * Auth/Cert (Routine) Specialty Diagnoses / Procedures Referred By Contac t Referred To Contact Obstetrics Diagnoses Chronic hypertension with superimposed preeclampsia Maternity*dora: 07/03/25/Pre E SF Dhruv Harris MD [address] [place] [id number] Phone: tel: fax: [facility] [address] [place] [phone] Phone: tel: Referral ID Status Reason Start Date Expiration Date Visits Re quested Visits Authorized [id number] 1 1 Encounter Details Date Type Department Care Team (Latest Contact Info) Description 05/14/2025 4:47 PM CDT - 05/18/2025 3:31 PM CDT Hospital Encounter [facility] [address] [place] [phone] Michelle Thakkar MD [address] [facility] [address] [place], [place] [id number] Dhruv Harris MD [address] [place] [address] Theresa Park MD [address] [place] [id number] Chronic hypertension with superimposed preeclampsia (Primary Dx); S/P bladder repair; care and examination of lactating mother; S/P section; Tachycardia Discharge Disposition: Home or Self Care Social History Tobacco Use Types Packs/Day Years Used Date Smoking Tobacco: Former Cigarettes Q uit: 09/22/2021 Smokeless Tobacco: Never Tobacco Cessation:Counseling Given: Not Answered Alcohol Use Standard Drinks/Week Comments Not Currently 0 (1 standard drink = 0.6 oz pur e alcohol) [place] Depression Scale Answer Date Recorded [place] Depression Scale Total 3 05/16/2025 The thought of harming myself has occurred to me . Never 05/16/2025 Adolescent Education Answer Date Record ed Getting School Help Needed Not on file 05/23 Food Insecurity Answer Date Recorded Within the past 12 months, d id you worry that your food would run out before you got money to buy more? No 05/14/2025 Within the past 12 months, d id the food you bought just not last and you didn t have money to get more? No 05/14/2025 Housing Stability Answer Date Recorded Do you have housing? (Jessenia g is defined as stable permanent housing and does not include staying outside in a car, in a tent, in an abandoned building, in an overnight long term, or couch-surfing.) Yes 05/14/2025 Are you worried about losing your housing? No 05/14/2025 Financial Resource Strain Answer Date R ecorded Within the past 12 months, h ave you or your family members you live with been unable to get utilities (heat, electricity) when it was really needed? No 05/14/2025 Transportation Needs Answer Date Record ed Within the past 12 months, h as lack of transportation kept you from medical appointments, getting your medicines, non-medical meetings or appointments, work, or from getting things that you need? No 05/14/2025 Interpersonal Safety Answer Date Record ed Do you feel physically and e motionally safe where you currently live? Patient unable to answer 05/14/2025 Within the past 12 months, h ave you been hit, slapped, kicked or otherwise physically hurt by someone? Patient unable to answer 05/14/2025 Within the past 12 months, h ave you been humiliated or emotionally abused in other ways by your partner or ex-partner? Patient unable to answer 05/14/2025 Comments No Sex and Gender Information Value Date Recorded Sex Assigned at Not on file Legal Sex Female 4:15 AM [employer] Gender Identity Not on file Sexual Orientation Not on file documented as of this encounter Last Filed Vital Signs Vital Sign Reading Time Taken Comments Blood Pressure 118/62 05/18/2025 1:16 PM CDT Pulse 81 05/18/2025 1:16 PM CDT Temperature 36.6 C (97.8 F) 05/18/2025 8:56 AM CDT Respiratory Rate 20 05/18/2025 8:56 AM CDT Oxygen Saturation 97% 05/18/2025 8:56 AM CDT Inhaled Oxygen Concentration - - Weight 140.7 kg (310 lb 3 oz) 05/17/2025 6:11 AM CDT Height 175.3 cm (5' 9) 05/14/2025 6:00 PM CDT Body Mass Index 45.81 05/14/2025 6:00 PM CDT documented in this encounter Discharge Summaries * Sapphire Vargas MD - 05/18/2025 7:12 AM CDT Images from the original note were not included. [facility] Discharge Summary Kami Estes Age: [age] year old Date of : 1995 Date of Admission: 05/14/2025 Date of Discharge:: 05/18/2025 Admitting Physician: Dhruv Harris MD Discharge Physician: Sapphire Vargas MD Admission Diagnoses: - Intrauterine at 33w0d - Superimposed preeclampsia w/ severe features (LFTs) - GDMA2 - Hx CS x1 (cat II) (2016) - Hx of dsc lap for endo + hD&C for polyp removal (11/05/2020) - LOGAN/MDD - Hx of cholecystectomy (06/2024) - JUAN PABLO, no CPAP - Hx chronic headaches - Proteinuria in Discharge Diagnosis: 33w0d, delivered Bladder muscularis injury Procedures: Procedure(s): Repeat low transverse section with double layer uterine closure via Pfannenstiel incision, repair of bladder muscularis, cystoscopy TAP block Spinal > GETA Medications Prior to Admission: Medications Prior to Admission Medication Sig Dispense Refill Last Dose/Taking citalopram (CELEXA) 10 MG tablet Take 10 mg by mouth. 05/14/2025 lamoTRIgine (LAMICTAL) 200 MG tablet Take 200 mg by mouth daily. 05/14/2025 [DISCONTINUED] acetaminophen (TYLENOL) 500 MG tablet Take 1,000 mg by mouth. 05/14/2025 [DISCONTINUED] Acetaminophen 325 MG CAPS Take by mouth. 05/14/2025 [DISCONTINUED] aspirin 81 MG EC tablet Take 81 mg by mouth daily. 05/13/2025 [DISCONTINUED] insulin NPH 100 UNIT/ML vial Inject 20 Units subcutaneously at bedtime. 05/13/2025 [DISCONTINUED] labetalol (NORMODYNE) 100 MG tablet Take 100 mg by mouth 3 times daily. 05/14/2025 Discharge Medications: Review of your medicines START taking Dose / Directions metoprolol succinate ER 50 MG 24 hr tablet Commonly known as: TOPROL XL Used for: Tachycardia Dose: 50 mg Take 1 tablet (50 mg) by mouth daily. Quantity: 30 tablet Refills: 0 * oxyCODONE 5 MG tablet Commonly known as: ROXICODONE Used for: S/P section Dose: 5 mg Take 1 tablet (5 mg) by mouth every 6 hours as needed for pain. Quantity: 12 tablet Refills: 0 * oxyCODONE 5 MG tablet Commonly known as: ROXICODONE Used for: S/P section Dose: 5 mg Take 1 tablet (5 mg) by mouth every 4 hours as needed for moderate pain. Quantity: 12 tablet Refills: 0 senna-docusate 8.6-50 MG tablet Commonly known as: SENOKOT-S/PERICOLACE Used for: S/P section Dose: 1 tablet Take 1 tablet by mouth daily. Start after delivery. Quantity: 100 tablet Refills: 0 * This list has 2 medication(s) that are the same as other medications prescribed for you. Read thedirections carefully, and ask your doctor or other care provider to review them with you. CONTINUE these medicines which may have CHANGED, or have new prescriptions. If we are uncertain of the size of tablets/capsules you have at home, strength may be listed as something that might have changed. Dose / Directions acetaminophen 325 MG tablet Commonly known as: TYLENOL This may have changed: medication strength how much to take when to take this reasons to take this additional instructions Another medication with the same name was removed. Continue taking this medication, and follow the directions you see here. Used for: S/P section Dose: 650 mg Take 2 tablets (650 mg) by mouth every 6 hours as needed for mild pain. Start after Delivery. Refills: 0 CONTINUE these medicines which have NOT CHANGED Dose / Directions citalopram 10 MG tablet Commonly known as: celeXA Dose: 10 mg Take 10 mg by mouth. Refills: 0 lamoTRIgine 200 MG tablet Commonly known as: LaMICtal Dose: 200 mg Take 200 mg by mouth daily. Refills: 0 STOP taking aspirin 81 MG EC tablet insulin NPH 100 UNIT/ML vial labetalol 100 MG tablet Commonly known as: NORMODYNE Where to get your medicines These medications were sent to [place], [place] - [address] [address] oxyCODONE 5 MG tablet senna-docusate 8.6-50 MG tablet These medications were sent to [id number] [place], [place] - [address] AT [facility] [address] [facility] [id number] metoprolol succinate ER 50 MG 24 hr tablet oxyCODONE 5 MG tablet Some of these will need a paper prescription and others can be bought over the counter. Ask your nurse if you have questions. You don't need a prescription for these medications acetaminophen 325 MG tablet Consultations: Consultation during this admission received from NICU, Anesthesia, , and social work. Brief History of Admission and Antepartum Course: Kami Estes is a 29 year old who presented as a at 32w6d as a transfer from [facility] for superimposed preeclampsia with severe features. At the OSH, she met criteria due to rising LFTs and symptoms including headache, vision changes, shortness of breath, and RUQ pain. Prior to transfer, she has received a full course of BMZ (05/13-05/14) and had been on Mg infusion for approx 6-7 hours. On admission, she was vitally stable and her blood pressures were normotensive. Her symptoms were all still present on arrival, although her headache had improved slightly following a dose of Tylenol that morning. She was continued on Mg, given Tylenol, Reglan and Benadryl, and repeat labs were drawn. NICU was consulted at this time. Workup was notable for ALT of 82, only slightly elevated from OSH, but HELLP labs otherwise normal at this time. Pt was taken off NPO status from approx [id number] given improvement in headache and normotensive pressures. However, she began reporting vision changes again at 2030. She was NPO and a CT scan was ordered, which resulted with no acute intracranial process. Given likely worsening pre-eclampsia as the etiology for her vision changes, delivery was recommended. Intrapartum Course: The procedure was complicated by bladder muscularis injury. EBL 1312 mL. See operative report for details. Findings: - Dense subcutaneous and rectofascial adhesions - Clear amniotic fluid - Moderate adhesions between the bladder and the uterus. - Liveborn in LOT cephalic presentation. Apgars of 7 and 8 at 1 and 5 minutes. Weight 2170g - Arterial cord pH 7.22, base deficit -6.0. Venous cord pH 7.27, base deficit -5.9. - Normal uterus, fallopian tubes, and ovaries. - Injury to bladder muscularis on entry. Cystoscopy confirmed no injury to internal bladder mucosa and watertight repair. No stitches visualized in the bladder. Bilateral UO with jets. Hospital Course: The patient's course was notable for completion of 24 hours of magnesium. Her labetalol was discontinued due to low normotensive blood pressures. On discharge, her pain was well controlled. Vaginal bleeding is similar to peak menstrual flow. Zavala remains in place. Ambulating well and susana erating a normal diet. No fever. Pumping well. Infant is in NICU. She was discharged on post-partumday #3. Post- hemoglobin: Hemoglobin Date Value Ref Range Status 05/16/2025 8.7 (L) 11.7 - 15.7 g/dL Final 07/29/2007 13.3 11.7 - 15.7 g/dL Final Contraception: IUD at 6 week visit Rhogam was not indicated Discharge Instructions and Follow-Up: Discharge diet: Regular Discharge activity: No lifting greater than 20 lbs, pushing, pulling, or other strenuous activity for 6 weeks. Pelvic rest for 6 weeks including no sexual intercourse, tampons, or douching. No driving until you can slam on the brakes without pain or while on narcotic pain medications. Discharge follow-up: Follow up with primary OB for routine visit in 6 weeks HOPE-BP Cystogram in 7 days with clinic follow up for removal Wound care: Keep incision clean and dry Discharge Disposition: Discharged to home Shannon Mustafa MD PGY-2 Obstetrics and Gynecology 05/18/25 7:16 AM documented in this encounter Discharge Instructions * Discharge Instructions* Catherine Robert RN - 05/18/2025 1:13 PM CDT Warning Signs after Having a Baby Keep this paper on your fridge or somewhere else where you can see it. Call your provider if you have any of these symptoms up to 12 weeks after having your baby. Thoughts of hurting yourself or your baby Pain in your chest or trouble breathing Severe headache not helped by pain medicine Eyesight concerns (blurry vision, seeing spots or flashes of light, other changes to eyesight) Fainting, shaking or other signs of a seizure Call if you feel that it is an emergency. The symptoms below can happen to anyone after giving . They can be very serious. Call your provider if you have any of these warning signs. My provider???s phone number: Losing too much blood (hemorrhage) Call your provider if you soak through a pad in less than an hour or pass blood clots bigger than agolf ball. These may be signs that you are bleeding too much. Blood clots in the legs or lungs After you give , your body naturally clots its blood to help prevent blood loss. Sometimes this increased clotting can happen in other areas of the body, like the legs or lungs. This can block your blood flow and be very dangerous. Call your provider if you: Have a red, swollen spot on the back of your leg that is warm or painful when you touch it. Are coughing up blood. Infection Call your provider if you have any of these symptoms: Fever of 100.4 F (38 C) or higher. Pain or redness around your stitches if you had an incision. Any yellow, white, or green fluid coming from places where you had stitches or surgery. Mood Problems ( depression) Many people feel sad or have mood changes after having a baby. But for some people, these mood swings are worse. Call your provider right away if you feel so anxious or nervous that you can't care for yourself oryour baby. Preeclampsia (high blood pressure) Even if you didn't have high blood pressure when you were , you are at risk for the high blood pressure disease called preeclampsia. This risk can last up to 12 weeks after giving . Call your provider if you have: Pain on your right side under your rib cage Sudden swelling in the hands and face Remember: You know your body. If something doesn't feel right, get medical help. For informational purposes only. Not to replace the advice of your health care provider. Copyright 2020 [facility]. All rights reserved. Clinically reviewed by BELLA Ledezma-OB, MSN. OONi [id number] - Rev 10/14. * Attachments The following attachments cannot be sent through Care Everywhere. * (s) Checking Your Blood Pressure at Home: During and after (American) * Care: : Baby in NICU (American) documented in this encounter Medications at Time of Discharge acetaminophen (TYLENOL) 325 MG tabletIndication s:S/P section Take 2 tablets (650 mg) by mouth every 6 hours as needed for mild pain. Start after Delivery. 05/18/2025 citalopram (CELEXA) 10 MG tablet Take 10 mg by mouth. 07/13/2024 lamoTRIgine (LAMICTAL) 200 MG tablet Take 200 mg by mouth daily. metoprolol succinate ER (TOPROL XL) 50 MG 24 hr tabletIndication s:Tachycardia Take 1 tablet (50 mg) by mouth daily. 30 tablet 05/18/2025 oxyCODONE (ROXICODONE) 5 MG tabletIndication s:S/P section Take 1 tablet (5 mg) by mouth every 6 hours as needed for pain. 12 tablet 05/18/2025 05/21/2025 oxyCODONE (ROXICODONE) 5 MG tabletIndication s:S/P section Take 1 tablet (5 mg) by mouth every 4 hours as needed for moderate pain. 12 tablet 05/18/2025 senna-docusate (SENOKOT-S/PERIC OLACE) 8.6-50 MG tabletIndication s:S/P section Take 1 tablet by mouth daily. Start after delivery. 100 tablet 05/18/2025 documented as of this encounter Progress Notes * Sapphire Vargas MD - 05/18/2025 7:10 AM CDT Images from the original note were not included. OB Progress Note S: Feeling overall well this morning. Pain well controlled with current regimen. Utilized oxycodonex4 in past 24 hours. Zavala is bothersome but manageable. Feels like she needs teaching prior to discharge. Tolerating regular diet without nausea or emesis. Passing flatus, had a bowel movement. Ambulating without dizziness or lightheadedness. Working on pumping. Lochia appropriate. Has had a mild headache that improves with tylenol. Denies vision changes, CP, SOB, increased edema, heavy bleeding, RUQ pain. Would like to see regarding breast pumping needs and social work regarding regis soler prior to discharge O: Patient Vitals for the past 24 hrs: BP Temp Temp src Pulse Resp SpO2 05/18/25 0856 133/73 97.8 ??F (36.6 ??C) Oral 102 20 97 % 05/18/25 0826 123/76 -- -- 111 20 -- 05/18/25 0633 117/62 -- -- 85 -- -- 05/17/25 2352 121/69 98 ??F (36.7 ??C) Oral 97 16 -- 05/17/25 1809 123/75 98.5 ??F (36.9 ??C) Oral 104 16 -- 05/17/25 1254 120/56 -- -- 96 16 -- Gen: NAD CV: Regular rate Resp: Non-labored breathing on room air Abd: Soft, mild distended, appropriately tender, fundus firm below the umbilicus and appropriately tender Inc: C/D/I Ext: 1+ lower extremity edema bilaterally, calves non-tender Labs: Hemoglobin Date Value Ref Range Status 05/18/2025 8.6 (L) 11.7 - 15.7 g/dL Final 07/29/2007 13.3 11.7 - 15.7 g/dL Final Platelet Count Date Value Ref Range Status 05/18/2025 315 150 - 450 10e3/uL Final 07/29/2007 271 150 - 450 10e9/L Final Creatinine Date Value Ref Range Status 05/15/2025 0.54 0.51 - 0.95 mg/dL Final 07/29/2007 0.60 0.60 - 1.20 mg/dL Final AST Date Value Ref Range Status 05/16/2025 39 0 - 45 U/L Final ALT Date Value Ref Range Status 05/16/2025 80 (H) 0 - 50 U/L Final A/P: Kami Estes is a 29 year old who is POD#3 s/p RLTCS and cystoscopy for Pre-E w/SFand bladder injury during surgery. notable for GDMA2 and asthma. Meeting goals for discharge. # /Postop - Pain: Continue scheduled acetaminophen, ibuprofen, and prn oxycodone. Used 5mg oxycodone q4h yesterday - Heme: 11.2 > EBL 1312 > 9.7 Hemoglobin 11.7 - 15.7 g/dL 8.6 Low This AM 8.7 Low 9.5 Low 9.7 Low 11.0 Low 11.2 Low 12.5 No s/s of ongoing blood loss. Will discharge with oral iron. - GI: Bowel regimen. PRN simethicone QID. PRN antiemetics. - PNC: Rh positive, Rubella imm. No interventions indicated. - Pumping for baby in NICU - Contraception: IUD@6 weeks. Discussed recommended spacing of 18 months. - PPx: Encourage ambulation, IS, SCDs while confined to bed. Lovenox BID while inpatient. - PT consult placed today for help with interventions for mobility at home # Bladder muscularis injury - Continue Zavala x7 days - Cystogram on day of removal, will coordinate follow up - RN team at clinic aware. - Added on urojet for comfort # Superimposed preeclampsia with severe features (LFTs) # History chronic headaches # Protienuria in - Symptoms: RUQ pain - Serial BP monitoring normotensive - Antihypertensives: RESERVATIONS AGENT labatelol 100mg TID > discontinued. - Patient to follow up with PCP as well to coordinate medication control of tachycardia. - IV antihypertensives PRN for sustained severe range blood pressures (SBP>160, DBP>110 sustained over 15 minutes) - Labs: mildly elevated ALT 82>96>80; AST 50>39 - Daily weights, strict I&Os - S/p 24 hours of magnesium - Amenable to HOPE-BP on discharge # JUAN PABLO - CPAP at bedside, patient has prescription at home # Gestational Diabetes A2 - Fbg 107 # Asthma - RESERVATIONS AGENT albuterol PRN # MDD # LOGAN # Hx SI - RESERVATIONS AGENT citalopram 10mg qAM - RESERVATIONS AGENT lamotrigine 200mg qAM Medically Ready for Discharge: Anticipated Today Discussed with patient follow up can be with our clinic ([facility]) or her home OB, whichever is most convenient for her. Would recommend cystogram follow up/mood check with our clinic. Shannon Mustafa MD PGY-2 Obstetrics and Gynecology 05/18/25 7:12 AM [facility] staff: Appreciate note by Dr. Mustafa. I have seen and examined the patient without the resident. I have reviewed, edited, and agree with the note. My findings are: Pt with history of tachycardia tx with Metoprolol prior to . Per pt report, this managed her heart rate far better than labetalol. Will send rx and recommend f/up with primary team as out pt. Sapphire Vargas MD, FACOG 05/18/2025 10:04 AM * Dariela Howard, PT - 05/17/2025 1:15 PM CDT 05/17/25 1205 Appointment Info Signing Clinician's Name / Credentials (PT) Dariela Howard DPLemuel Living Environment People in Home spouse;child(kameron), dependent Current Living Arrangements house Home Accessibility stairs within home Number of Stairs, Within Home, Primary greater than 10 stairs Stair Railings, Within Home, Primary railing on left side (ascending) Transportation Anticipated family or friend will provide Living Environment Comments lives with spouse, 8 yo son. flight of stairs needed. Self-Care Usual Activity Tolerance good Current Activity Tolerance moderate Equipment Currently Used at Home none Fall history within last six months no Activity/Exercise/Self-Care Comment IND at baseline with all cares and mobility General Information Onset of Illness/Injury or Date of Surgery 05/14/25 Referring Physician Balta Goyal MD Patient/Family Therapy Goals Statement (PT) be able to do stairs confidently Pertinent History of Current Problem (include personal factors and/or comorbidities that impact thePOC) per chart review, clarisse Estes is a 29 year old who is POD#2 s/p RLTCS and cystoscopy for Pre-E w/SF and bladder injury during surgery. notable for GDMA2 and asthma. Existing Precautions/Restrictions abdominal General Observations spouse present and supportive Cognition Affect/Mental Status (Cognition) WNL Orientation Status (Cognition) oriented x 4 Follows Commands (Cognition) WNL Pain Assessment Patient Currently in Pain Yes, see Vital Sign flowsheet Posture Posture Comments consistent post LE swelling Range of Motion (ROM) Range of Motion ROM is WNL Strength (Manual Muscle Testing) Strength (Manual Muscle Testing) strength is WNL Bed Mobility Comment, (Bed Mobility) pt reports no difficulty, not physically assessed Transfers Comment, (Transfers) IND Gait/Stairs (Locomotion) Comment, (Gait/Stairs) pt ambulates in room, slow but steady, IND on feet Balance Balance no deficits were identified Sensory Examination Sensory Perception patient reports no sensory changes Coordination Coordination no deficits were identified Clinical Impression Criteria for Skilled Therapeutic Intervention Yes, treatment indicated PT Diagnosis (PT) impaired functional mobility Influenced by the following impairments pain, precautions Functional limitations due to impairments activity tolerance, stairs Clinical Presentation (PT Evaluation Complexity) stable Clinical Presentation Rationale PMH, clinician impression Clinical Decision Making (Complexity) low complexity Planned Therapy Interventions (PT) gait training;patient/family education Risk & Benefits of therapy have been explained evaluation/treatment results reviewed;care plan/treatment goals reviewed;risks/benefits reviewed;current/potential barriers reviewed;participants voiced agreement with care plan;participants included;patient;spouse/significant other PT Total Evaluation Time PT Eval, Low Complexity Minutes (40281) 7 Physical Therapy Goals PT Frequency One time eval and treatment only Pt will perform x1 flight stairs L rail IND with pain managed (goal met) Interventions Interventions Quick Adds Therapeutic Activity;Gait Training Therapeutic Activity Therapeutic Activities: dynamic activities to improve functional performance Minutes (51815) 3 Symptoms Noted During/After Treatment None Treatment Detail/Skilled Intervention educated on positioning in car for trips and consider use of pillow of bracing, pt already has abd binder she is wearing which is helping. Gait Training Gait Training Minutes (19428) 8 Symptoms Noted During/After Treatment (Gait Training) none Treatment Detail/Skilled Intervention pt's primary needs around pain managment and positoining for activity including stairs in setting of painful . Pt demos IND gait to/from stair well thenPT educated on step-to pattern with emphasis on minimizing abd pain. Complete x1 flight L rail sidestepping>forward facing technique, stedy and feeling much more confident after education and practice. IND hallway ambulation x100'. Distance in Feet 100 PT Discharge Planning PT Plan DC from IP PT PT Discharge Recommendation (DC Rec) home with assist PT Rationale for DC Rec pain improved this AM, up IND and able to complete stairs needed per home set up safely and with pain well managed. Has supportive spouse who can assist with recovery at home PT Brief overview of current status IND PT Total Distance Amb During Session (feet) 100 Physical Therapy Time and Intention Timed Code Treatment Minutes 11 Total Session Time (sum of timed and untimed services) 18 * Isidoro Watson MD - 05/17/2025 6:57 AM CDT OB Progress Note S: Feeling overall well this morning. Pain well controlled. Zavala is bothersome but manageable. Tolerating regular diet without nausea or emesis. Passing flatus, no bowel movement. Zavala in place. Ambulating without dizziness or lightheadedness. Working on pumping. Lochia appropriate. Denies visionchanges, CP, SOB, increased edema, heavy bleeding, RUQ pain. Hasn't done much walking yesterday andwould like to work on ambulation today and work with PT, as she's nervous about her stairs at home. O: Patient Vitals for the past 24 hrs: BP Temp Temp src Pulse Resp Weight 05/17/25 0611 -- -- -- -- -- (!) 140.7 kg (310 lb 3 oz) 05/17/25 0538 113/46 98.2 ??F (36.8 ??C) Oral 93 16 -- 05/17/25 0157 111/67 98.1 ??F (36.7 ??C) Oral 99 15 -- 05/16/25 2138 122/67 98.4 ??F (36.9 ??C) Oral 104 16 -- 05/16/25 1550 128/79 99.1 ??F (37.3 ??C) Oral -- 16 -- 05/16/25 1156 128/78 99.6 ??F (37.6 ??C) Oral -- 16 -- 05/16/25 0836 113/64 -- -- -- -- -- Gen: NAD CV: Regular rate Resp: Non-labored breathing on room air Abd: Soft, mild distended, appropriately tender, fundus firm below the umbilicus and appropriately tender Inc: C/D/I Ext: 1+ lower extremity edema bilaterally, calves non-tender Labs: Hemoglobin Date Value Ref Range Status 05/16/2025 8.7 (L) 11.7 - 15.7 g/dL Final 07/29/2007 13.3 11.7 - 15.7 g/dL Final Platelet Count Date Value Ref Range Status 05/15/2025 325 150 - 450 10e3/uL Final 07/29/2007 271 150 - 450 10e9/L Final Creatinine Date Value Ref Range Status 05/15/2025 0.54 0.51 - 0.95 mg/dL Final 07/29/2007 0.60 0.60 - 1.20 mg/dL Final AST Date Value Ref Range Status 05/16/2025 39 0 - 45 U/L Final ALT Date Value Ref Range Status 05/16/2025 80 (H) 0 - 50 U/L Final A/P: Kami Estes is a 29 year old who is POD#2 s/p RLTCS and cystoscopy for Pre-E w/SFand bladder injury during surgery. notable for GDMA2 and asthma. Would like to work on moving around more today, and was hoping to see the physical therapist to discuss how to best go up the stairs in her home. # /Postop - Pain: Continue scheduled acetaminophen, scheduled Toradol x4 doses > ibuprofen, and prn oxycodone. Used 5mg oxycodone q4h yesterday - Heme: 11.2 > EBL 1312 > 9.7 No s/s of ongoing blood loss. Will discharge with oral iron. - GI: Bowel regimen. PRN simethicone QID. PRN antiemetics. - PNC: Rh positive, Rubella imm. No interventions indicated. - Pumping for baby in NICU - Contraception: IUD@6 weeks. Discussed recommended spacing of 18 months. - PPx: Encourage ambulation, IS, SCDs while confined to bed. Lovenox BID while inpatient. - PT consult placed today for help with interventions for mobility at home # Bladder muscularis injury - Continue Zavala x7 days - Cystogram on day of removal, will coordinate follow up - Added on urojet for comfort # Superimposed preeclampsia with severe features (LFTs) # History chronic headaches # Protienuria in - Symptoms: RUQ pain - Serial BP monitoring normotensive - Antihypertensives: RESERVATIONS AGENT labatelol 100mg TID > 1d labetalol 100 BID> D#1 labetalol 50 BID > discontinue labetalol today, will continue to monitor before discharge tomorrow - IV antihypertensives PRN for sustained severe range blood pressures (SBP>160, DBP>110 sustained over 15 minutes) - Labs: will repeat LFTS's, mildly elevated ALT 82>96>80; AST 50>39 (05/15) - Daily weights, strict I&Os - S/p 24 hours of magnesium - Amenable to HOPE-BP on discharge # Gestational Diabetes A2 - Fbg 107 # Asthma - RESERVATIONS AGENT albuterol PRN # MDD # LOGAN # Hx SI - RESERVATIONS AGENT citalopram 10mg qAM - RESERVATIONS AGENT lamotrigine 200mg qAM Medically Ready for Discharge: Anticipated Tomorrow Balta Goyal MD Obstetrics and Gynecology, PGY-3 05/17/2025 7:00 AM Appreciate note by Dr. Goyal. Patient has been seen and examined by me separate from the resident, agree with above note. Isidoro Watson MD 10:35 AM * Annmarie Rodrigues MD - 05/16/2025 7:11 AM CDT OB Progress Note S: Feeling well this morning, better off the Mag. Pain well controlled. Tolerating regular diet without nausea or emesis. Is having some burping and no gas. Voiding via zavala. Ambulating without dizziness or lightheadedness. Working on pumping, desires consult today. Lochia appropriate. Denies vision changes, CP, SOB, increased edema, heavy bleeding. Having some RUQ pain. O: Patient Vitals for the past 24 hrs: BP Temp Temp src Pulse Resp SpO2 Weight 05/16/25 0611 -- -- -- -- -- -- (!) 141.3 kg (311 lb 8.2 oz) 05/16/25 0400 108/62 98 ??F (36.7 ??C) Oral -- 16 96 % -- 05/16/25 0300 100/51 -- -- -- 17 100 % -- 05/16/25 0200 98/58 -- -- -- 16 96 % -- 05/16/25 0100 110/62 -- -- -- 15 96 % -- 05/16/25 0000 103/50 -- -- -- 16 96 % -- 05/15/25 2309 110/58 -- -- -- 17 97 % -- 05/15/25 2211 102/63 98.6 ??F (37 ??C) Oral -- 16 98 % -- 05/15/25 2117 114/61 -- -- -- 17 98 % -- 05/15/252004 103/67 -- -- 96 16 100 % -- 05/15/25 1905 106/64 -- -- 91 -- 100 % -- 05/15/25 1800 110/58 98.1 ??F (36.7 ??C) Oral 93 16 97 % -- 05/15/25 1704 110/57 -- -- 93 -- 98 % -- 05/15/25 1559 115/69 -- -- 93 16 98 % -- 05/15/25 1508 104/54 98.3 ??F (36.8 ??C) Oral 91 16 -- -- 05/15/25 1340 -- -- -- -- -- 95 % -- 05/15/25 1338 98/60 -- -- 93 16 97 % -- 05/15/25 1300 119/66 -- -- 93 16 98 % -- 05/15/25 1200 117/72 -- -- -- 16 100 % -- 05/15/25 1100 111/57 -- -- 85 16 96 % -- 05/15/25 1000 121/61 -- -- 98 16 99 % -- 05/15/25 0940 109/56 98.2 ??F (36.8 ??C) Oral 91 16 98 % -- 05/15/25 0831 115/68 -- -- 99 15 98 % -- 05/15/25 0828 -- 98.1 ??F (36.7 ??C) Oral -- -- -- -- 05/15/25 0815 111/60 -- -- 100 17 98 % -- 05/15/25 0800 118/66 -- -- 97 15 98 % -- 05/15/25 0745 119/70 -- -- 110 20 95 % -- 05/15/25 0730 (!) 129/90 -- -- -- -- -- -- Gen: NAD CV: Regular rate Resp: Non-labored breathing on room air Abd: Soft, mild distended, appropriately tender, fundus firm below the umbilicus and appropriately tender Inc: C/D/I, covered by bandage Ext: 1+ lower extremity edema bilaterally, calves non-tender UOP: 2775/12 hr = 1.6 ml/kg/hr Weight: Wt Readings from Last 3 Encounters: 05/16/25 (!) 141.3 kg (311 lb 8.2 oz) 11/15/24 (!) 137.6 kg (303 lb 6.4 oz) 02/19/23 141.5 kg (312 lb) Labs: Hemoglobin Date Value Ref Range Status 05/15/2025 9.5 (L) 11.7 - 15.7 g/dL Final 07/29/2007 13.3 11.7 - 15.7 g/dL Final Platelet Count Date Value Ref Range Status 05/15/2025 325 150 - 450 10e3/uL Final 07/29/2007 271 150 - 450 10e9/L Final Creatinine Date Value Ref Range Status 05/15/2025 0.54 0.51 - 0.95 mg/dL Final 07/29/2007 0.60 0.60 - 1.20 mg/dL Final AST Date Value Ref Range Status 05/15/2025 50 (H) 0 - 45 U/L Final ALT Date Value Ref Range Status 05/15/2025 96 (H) 0 - 50 U/L Final A/P: Kami Estes is a 29 year old who is POD#1 s/p RLTCS and cystoscopy for Pre-E w/SF. notable for GDMA2 and asthma. # /Postop - Pain: Continue scheduled acetaminophen, scheduled Toradol x4 doses > ibuprofen, and prn oxycodone - Heme: 11.2 > EBL 1312 > 9.7 No s/s of ongoing blood loss. - GI: Bowel regimen. PRN simethicone QID. PRN antiemetics. - PNC: Rh positive, Rubella imm. No interventions indicated. - Pumping for baby in NICU - Contraception: Not discussed. Discussed recommended spacing of 18 months. - PPx: Encourage ambulation, IS, SCDs while confined to bed. Lovenox BID while inpatient. # Bladder muscularis injury - Continue Zavala x7 days - Cystogram on day of removal, will coordinate follow up # Superimposed preeclampsia with severe features (LFTs) # History chronic headaches # Protienuria in - Symptoms: RUQ pain - Serial BP monitoring with low normotensive yesterday - Antihypertensives: RESERVATIONS AGENT labatelol 100mg TID > 1d labetalol 100 BID> D#1 labetalol 50 BID - IV antihypertensives PRN for sustained severe range blood pressures (SBP>160, DBP>110 sustained over 15 minutes) - Labs: will repeat LFTS's, mildly elevated AST 82>96; ALT 50 (05/15) - Daily weights, strict I&Os - S/p 24 hours of magnesium # Gestational Diabetes A2 - Fbg 107 # Asthma - RESERVATIONS AGENT albuterol PRN # MDD # LOGAN # Hx SI - RESERVATIONS AGENT citalopram 10mg qAM - RESERVATIONS AGENT lamotrigine 200mg qAM Medically Ready for Discharge: Anticipated in 2-4 Days Delaney Watkins MD, PGY-[address] Watkins's note above, patient also seen and examined by me. On exam vital signs are normal, bowel sounds noted. Discussed leg bag teaching and zavala management. I agree with the note above. Annmarie Rodrigues MD * Shannon Mustafa MD - 05/16/2025 1:20 AM CDT Magnesium Check - S: In bed resting with CPAP on. Denies chest pain, dyspnea, headache, vision changes, worsening swelling. O: Patient Vitals for the past 24 hrs: BP Temp Temp src Pulse Resp SpO2 05/16/25 0000 103/50 -- -- -- -- 96 % 05/15/25 2309 110/58 -- -- -- -- 97 % 05/15/25 2211 102/63 98.6 ??F (37 ??C) Oral -- 16 98 % 05/15/252116 114/61 -- -- -- -- 98 % 05/15/252004 103/67 -- -- 96 16 100 % 05/15/25 1905 106/64 -- -- 91 -- 100 % 05/15/25 1800 110/58 98.1 ??F (36.7 ??C) Oral 93 16 97 % 05/15/25 1704 110/57 -- -- 93 -- 98 % 05/15/25 1559 115/69 -- -- 93 16 98 % 05/15/25 1508 104/54 98.3 ??F (36.8 ??C) Oral 91 16 -- 05/15/25 1340 -- -- -- -- -- 95 % 05/15/25 1338 98/60 -- -- 93 16 97 % 05/15/25 1300 119/66 -- -- 93 16 98 % 05/15/25 1200 117/72 -- -- -- 16 100 % 05/15/25 1100 111/57 -- -- 85 16 96 % 05/15/25 1000 121/61 -- -- 98 16 99 % 05/15/25 0940 109/56 98.2 ??F (36.8 ??C) Oral 91 16 98 % 05/15/25 0831 115/68 -- -- 99 15 98 % 05/15/25 0828 -- 98.1 ??F (36.7 ??C) Oral -- -- -- 05/15/25 0815 111/60 -- -- 100 17 98 % 05/15/25 0800 118/66 -- -- 97 15 98 % 05/15/25 0745 119/70 -- -- 110 20 95 % 05/15/25 0730 (!) 129/90 -- -- -- -- -- 05/15/25 0700 (!) 169/90 98.4 ??F (36.9 ??C) Axillary 99 12 98 % 05/15/25 0645 -- -- -- 100 14 98 % 05/15/25 0630 -- -- -- 109 18 98 % 05/15/25 0615 (!) 128/95 -- -- 119 -- 100 % 05/15/25 0610 115/89 98.1 ??F (36.7 ??C) Oral (!) 122 15 100 % Vitals: 05/14/25 1800 Weight: (!) 144.7 kg (319 lb) Gen: Resting comfortably, NAD CV: RRR Pulm: NWOB, CTAB Abd: Soft, non-tender, gravid Ext: Non-tender, 1+ LE edema b/l Neuro: 1+ patellar reflexes; 1+ left biceps and 1+ right biceps UOP: 675 mL over 4 hours A/P: Kami Estes is a 29 year old who is POD#1 s/p section complicated by superficial bladder injury, being treated for PreE w/ SF. # PreE w/ SF (VC, LFT): - BPs normotensive; Continue serial BP monitoring. - D#2 labetalol 100 mg BID - Immediate acting antihypertensives PRN - Asymptomatic - Continue Mag for 24 hours after delivery (off at 0330). No s/sx of mag toxicity - Strict I&O; UOP 1.5 ml/kg/hr, Zavala to remain in place for 7days, will work on coordinating outpatient follow up - Weight: 144.7 two days ago; daily weights ordered Shannon Mustafa MD PGY-2 Obstetrics and Gynecology 05/16/25 1:22 AM * Shannon Mustafa MD - 05/15/2025 9:00 PM CDT Magnesium Check - S: Kami has been struggling with pain and dizziness throughout the day, and even felt like she might faint earlier. Denies headache, vision changes, chest pain, shortness of breath, RUQ pain, increased edema. Does need help setting up CPAP for her JUAN PABLO. O: Patient Vitals for the past 24 hrs: BP Temp Temp src Pulse Resp SpO2 05/15/251 102/63 98.6 ??F (37 ??C) -- -- -- 98 % 05/15/252116 114/61 -- -- -- -- 98 % 05/15/252004 103/67 -- -- 96 16 100 % 05/15/25 1905 106/64 -- -- 91 -- 100 % 05/15/25 1800 110/58 98.1 ??F (36.7 ??C) Oral 93 16 97 % 05/15/25 1704 110/57 -- -- 93 -- 98 % 05/15/25 1559 115/69 -- -- 93 16 98 % 05/15/25 1508 104/54 98.3 ??F (36.8 ??C) Oral 91 16 -- 05/15/25 1340 -- -- -- -- -- 95 % 05/15/25 1338 98/60 -- -- 93 16 97 % 05/15/25 1300 119/66 -- -- 93 16 98 % 05/15/25 1200 117/72 -- -- -- 16 100 % 05/15/25 1100 111/57 -- -- 85 16 96 % 05/15/25 1000 121/61 -- -- 98 16 99 % 05/15/25 0940 109/56 98.2 ??F (36.8 ??C) Oral 91 16 98 % 05/15/25 0831 115/68 -- -- 99 15 98 % 05/15/25 0828 -- 98.1 ??F (36.7 ??C) Oral -- -- -- 05/15/25 0815 111/60 -- -- 100 17 98 % 05/15/25 0800 118/66 -- -- 97 15 98 % 05/15/25 0745 119/70 -- -- 110 20 95 % 05/15/25 0730 (!) 129/90 -- -- -- -- -- 05/15/25 0700 (!) 169/90 98.4 ??F (36.9 ??C) Axillary 99 12 98 % 05/15/25 0645 -- -- -- 100 14 98 % 05/15/25 0630 -- -- -- 109 18 98 % 05/15/25 0615 (!) 128/95 -- -- 119 -- 100 % 05/15/25 0610 115/89 98.1 ??F (36.7 ??C) Oral (!) 122 15 100 % 05/15/25 0025 117/56 -- -- -- -- -- Vitals: 05/14/25 1800 Weight: (!) 144.7 kg (319 lb) Gen: Resting comfortably, NAD CV: RRR Pulm: NWOB, CTAB Abd: Soft, non-tender, gravid Ext: Non-tender, 1+ LE edema b/l Neuro: 2+ patellar reflexes; 1+ left biceps and 0+ right biceps UOP: 1200 mL over 4 hours A/P: Kaminidhi Estes is a 29 year old who is POD#1 s/p section complicated by superficial bladder injury, being treated for PreE w/ SF. # PreE w/ SF (VC, LFT): - BPs normotensive; Continue serial BP monitoring - Immediate acting antihypertensives PRN - Asymptomatic - Continue Mag for 24 hours after delivery. No s/sx of mag toxicity - Strict I&O; UOP 2 ml/kg/hr, Zavala to remain in place for 7days, will work on coordinating outpatient follow up - Weight: 144.7 yesterday; daily weights ordered - Continue q4h clinical mag checks, next at 0100 # Sleep apnea - CPAP at bedside, RT to assist per RN Shannon Mustafa MD PGY-2 Obstetrics and Gynecology 05/15/25 11:03 PM Documentation delayed due to patient care needs * Theresa Park MD - 05/15/2025 7:20 PM CDT OBGYN Attending Progress Note Came to discuss events of delivery. Expressed condolences for the pain she had with . Discussed bladder injury, repair, and recommendations for followup (cystogram in 1 week with hopeful zavala removal after). She expresses that she felt quite dizzy with standing. BP reviewed today, normotensive to low BP. Labetalol changed to 100BID (previously TID) with hold parameters if BP is < 120/80 or HR is < 60. Continue magnesium for seizure prophylaxis. Given PPH will check Hgb. Theresa Park MD, MSCI, FACOG, MSCP Evs Attendant [facility] May 15, 2025 * Sapphire Vargas MD - 05/15/2025 4:19 PM CDT Magnesium Check - S: Patient reports feeling well. Denies headache, vision changes, chest pain, shortness of breath, RUQpain, increased edema. Notes occasional lightheadedness while standing up and pain in the upper midline abdomen, but this is consistent with POD#1 recovery status from . Reports a past history of sleep apnea diagnosed by sleep study. Does not currently have access to acpap machine due to cost barriers and she suspects this could be playing a role with her hypertension. Since admission her SpO2 has been within normal limits. O: Patient Vitals for the past 24 hrs: BP Temp Temp src Pulse Resp SpO2 Height Weight 05/15/25 1559 115/69 -- -- 93 16 98 % -- -- 05/15/25 1508 104/54 -- -- 91 16 -- -- -- 05/15/25 1340 -- -- -- -- -- 95 % -- -- 05/15/25 1338 98/60 -- -- 93 16 97 % -- -- 05/15/25 1300 119/66 -- -- 93 16 98 % -- -- 05/15/25 1200 117/72 -- -- -- 16 100 % -- -- 05/15/25 1100 111/57 -- -- 85 16 96 % -- -- 05/15/25 1000 121/61 -- -- 98 16 99 % -- -- 05/15/25 0940 109/56 98.2 ??F (36.8 ??C) Oral 91 16 98 % -- -- 05/15/25 0831 115/68 -- -- 99 15 98 % -- -- 05/15/25 0828 -- 98.1 ??F (36.7 ??C) Oral -- -- -- -- -- 05/15/25 0815 111/60 -- -- 100 17 98 % -- -- 05/15/25 0800 118/66 -- -- 97 15 98 % -- -- 05/15/25 0745 119/70 -- -- 110 20 95 % -- -- 05/15/25 0730 (!) 129/90 -- -- -- -- -- -- -- 05/15/25 0700 (!) 169/90 98.4 ??F (36.9 ??C) Axillary 99 12 98 % -- -- 05/15/25 0645 -- -- -- 100 14 98 % -- -- 05/15/25 0630 -- -- -- 109 18 98 % -- -- 05/15/25 0615 (!) 128/95 -- -- 119 -- 100 % -- -- 05/15/25 0610 115/89 98.1 ??F (36.7 ??C) Oral (!) 122 15 100 % -- -- 05/15/25 0025 117/56 -- -- -- -- -- -- -- 05/14/25 2009 106/53 -- -- -- -- 99 % -- -- 05/14/25 1853 117/61 -- -- -- -- -- -- -- 05/14/25 1800 -- -- -- -- -- -- 1.753 m (5' 9) (!) 144.7 kg (319 lb) 05/14/25 1722 132/64 -- -- -- -- -- -- -- 05/14/25 1705 -- 98.2 ??F (36.8 ??C) Oral -- 16 -- -- -- Wt Readings from Last 4 Encounters: 05/14/25 (!) 144.7 kg (319 lb) 11/15/24 (!) 137.6 kg (303 lb 6.4 oz) 02/19/23 141.5 kg (312 lb) Gen: Resting comfortably, NAD CV: RRR Pulm: NWOB, CTAB Abd: Soft, non-tender, gravid Ext: Non-tender, 1+ LE edema b/l Neuro: 2+ patellar reflexes UOP: 375 mL over 4 hours PreE Labs: Recent Labs Lab Test 05/15/2593205/15/25 01405/14/25 1706 HGB 9.7* 11.0* 11.2* Recent Labs Lab Test 05/15/2593205/15/25 0142 05/14/25 1706 PLT 325 341 353 Recent Labs Lab Test 05/15/25 0933 05/14/25 1706 ALT 96* 82* Recent Labs Lab Test 05/15/25 0933 05/14/25 1706 AST 50* 41 Recent Labs Lab Test 05/15/25 0933 05/14/25 1706 02/19/23 1128 CR 0.54 0.61 0.70 Recent Labs Lab Test 05/14/25 1706 02/19/23 1128 MAG 3.8* 2.0 A/P: Kami Estes is a 29 year old who is POD#1 s/p section complicated by superficial bladder injury, being treated for PreE w/ SF. # PreE w/ SF (VC, LFT): - BPs normotensive; Continue serial BP monitoring - Immediate acting antihypertensives PRN - Asymptomatic - Continue Mag for 24 hours after delivery. No s/sx of mag toxicity - Strict I&O; UOP adequate, Zavala to remain in place for 7days, will work on coordinating outpatient follow up - Weight: 144.7 - Continue q4h clinical mag checks, next at 2030. # Sleep apnea Reports history of sleep apnea diagnosed by sleep study and has not been able to access a sleep apnea machine during . Believes she is having apneic episodes during sleep causing fatigue. Considering her hypertensive disorder would benefit from a sleep apnea machine during hospitalization.Does not need social work's assistance with securing a new CPAP machine. - Sleep Apnea machine during admission Nelson Irwin, MS3 Resident/Fellow Attestation I, Delaney Watkins MD, was present with the medical/STORM student who participated in the service and in the documentation of the note. I have verified the history and personally performed the physical exam and medical decision making. I agree with the assessment and plan of care as documented in the note. Delaney Watkins MD PGY2 [facility] staff: Appreciate note by Dr. Watkins. I have reviewed, edited, and agree with the note. Sapphire Vargas MD, FACOG 05/18/2025 3:17 PM * Aleksandra Francisco LICSW - 05/15/2025 4:16 PM CDT *Copied from baby's chart: SW acknowledges order for consult for baby's NICU admission. SW attempted to meet with parents in mother's room to complete psychosocial assessment. Upon SW's arrival, provider was in the room speaking with patient. SW waited outside of the room for a while. However, after provider exited, team went in to re-do patient's IV and start her on magnesium. SW will re-attempt visit with parents tomorrow and will remain available to the family throughout their baby's NICU admission. FELIPE Orantes, [facility] Maternal Child Health Biologist Aide Wilfredo Hathaway-Nelsy 08:00-16:30 on [employer] [email or web address] * Gerri Goodman RN - 05/15/2025 9:30 AM CDT Patient arrived to [facility] unit via zoom cart at 0920,with belongings, accompanied by spouse/ significant other. Received report from Annmarie Hendricks RN .Unit and room orientation completd. Call light given; no concerns present at this time. Continue with plan of care. * Theresa Park MD - 05/15/2025 1:22 AM CDT Assumed care for this patient around 0100, [facility] recommends delivery for vision changes consistent with pre-e with SF. On Magnesium for seizure prophylaxis. Recommend in 30 minutes/urgent. Anesthesia updated, will bring to OR as soon as other cases are concluded. FHT cat 1. Ancef for antibiotics. Avoid methergine if PPH. Theresa Park MD, MSCI, FACOG, MSCP Evs Attendant [facility] May 15, 2025 * Balta Goyal MD - 05/15/2025 12:45 AM CDT Brief progress note Patient returned from CT scan with no change in vision. CT preliminary read returned with no intracranial pathology that would explain this change. Given unresolving vision changes, this is likely a manifestation of worsening pre- eclampsia and an indication for delivery. The patient desires a repeat section. Dr. Harris informed and agrees with plan. Balta Goyal MD Obstetrics and Gynecology, PGY-3 05/15/2025 1:04 AM * Balta Goyal MD - 05/14/2025 11:26 PM CDT Brief progress note Presented to bedside to assess patient's unilateral blurry vision. Stated that while the vision hadimproved prior to when it began, it has not resolved completely. Discussed with the patient that a head CT is recommended, after which if no intracranial pathology is identified, would recommend delivery in the setting of likely worsening SI pre-eclampsia with SF. The patient last had PO at 2029 (salad with black beans). She has been made NPO. She and her partner had questions about the baby, so the NICU was contacted to consult. Will perform head CT w/o contrast. Balta Goyal MD Obstetrics and Gynecology, PGY-3 05/14/2025 11:29 PM * Balta Goyal MD - 05/14/2025 9:30 PM CDT Brief progress note S: Paged to bedside, as the patient has started to report blurry vision in her left eye only for the past 45 minutes (starting around 8:30). She reports she wasn't able to see anything on the whiteboard across the bed, but over the past few minutes, it has improved to the point where it's just blurry, not unreadable completely. The patient denies any one-sided weakness or other neurologic symptoms. She reports having blurry vision once with a hemiplegic migraine; however this feels different from that. This also feels different from her blurry vision earlier today. No sparkling or flashing lights in her vision. Patient is otherwise tolerating magnesium well. Headache and RUQ pain has improved, but is still present. No SOB, N/V, or epigastric pain. O: BP 106/53 Temp 98.2 ??F (36.8 ??C) (Oral) Resp 16 Ht 1.753 m (5' 9) Wt (!) 144.7 kg (319 lb) LMP 09/23/2024 SpO2 99% BMI 47.11 kg/m?? General: AAOx3, NAD HEENT: Pupils equal, round, reactive to light and accommodation. Symmetric facial features and smile CV: RRR, no murmurs, rubs, or gallops Resp: CTAB, no wheezes, rales, or rhonchi Ext: Reflexes 2+ b/l in UE/LE, no clonus; 1+ edema on bilateral LE UOp: 1.48 ml/kg/hr Labs: Recent Results (from the past 24 hours) CBC with platelets Collection Time: 05/14/25 5:06 PM Result Value Ref Range WBC Count 13.10 (H) 4.00 - 11.00 10e3/uL RBC Count 4.05 3.80 - 5.20 10e6/uL Hemoglobin 11.2 (L) 11.7 - 15.7 g/dL Hematocrit 33.0 (L) 35.0 - 47.0 % MCV 81.5 78.0 - 100.0 fL MCH 27.7 26.5 - 33.0 pg MCHC 33.9 31.5 - 36.5 g/dL RDW 15.3 (H) 10.0 - 15.0 % Platelet Count 353 150 - 450 10e3/uL Comprehensive Metabolic Panel Collection Time: 05/14/25 5:06 PM Result Value Ref Range Sodium 134 (L) 135 - 145 mmol/L Potassium 4.2 3.4 - 5.3 mmol/L Carbon Dioxide (CO2) 14 (L) 22 - 29 mmol/L Anion Gap 17 (H) 7 - 15 mmol/L Urea Nitrogen 9.3 6.0 - 20.0 mg/dL Creatinine 0.61 0.51 - 0.95 mg/dL GFR Estimate >90 >60 mL/min/1.73m2 Calcium 8.5 (L) 8.8 - 10.4 mg/dL Chloride 103 98 - 107 mmol/L Glucose 117 (H) 70 - 99 mg/dL Alkaline Phosphatase 88 40 - 150 U/L AST 41 0 - 45 U/L ALT 82 (H) 0 - 50 U/L Protein Total 7.2 6.4 - 8.3 g/dL Albumin 3.5 3.5 - 5.2 g/dL Bilirubin Total 0.2 <=1.2 mg/dL Magnesium Collection Time: 05/14/25 5:06 PM Result Value Ref Range Magnesium 3.8 (H) 1.7 - 2.3 mg/dL Adult Type and Screen Collection Time: 05/14/25 5:06 PM Result Value Ref Range ABO/RH(D) O POS Antibody Screen Negative Negative SPECIMEN EXPIRATION DATE 05/17/2025 11:59:00 PM CDT Glucose by meter Collection Time: 05/14/25 7:37 PM Result Value Ref Range GLUCOSE BY METER POCT 111 (H) 70 - 99 mg/dL Glucose by meter Collection Time: 05/14/25 8:51 PM Result Value Ref Range GLUCOSE BY METER POCT 118 (H) 70 - 99 mg/dL A/P: 29 year old at 32w6d on magnesium for seizure prophylaxis in the setting of SI pre-eclampsia with severe features by LFT criteria. Currently with blurry vision in one eye. No signs of magnesium toxicity. Blood pressures currently normal. # Pre-eclampsia with severe features - Mag started at OSH; currently running - BP normotensive - Continue magnesium for seizure ppx - The patient's unilateral blurry vision is improving. If it resolves completely in 30 minutes, will continue to monitor closely. If it does not resolve, will get a stat head CT to rule out any intracranial processes. If the head CT returns negative, this is likely a manifestation of pre-e w/ SF and would recommend delivery. Patient discussed with Dr. Harris. Balta Goyal MD Obstetrics and Gynecology, PGY-3 05/14/2025 9:46 PM documented in this encounter H&P Notes * Paco Segura MD - 05/14/2025 3:32 PM CDT MATERNAL- MEDICINE HISTORY AND PHYSICAL Patient: Kami Estes Date of : 1995 HPI: Kami Estes is a 29 year old at 32w6d by 8w2d US who presents as transfer from [facility] for superimposed preeclampsia with severe features. She reports getting liver enzymes approx a week ago, which were found to be elevated, so were re-checked yesterday and found to be higher, in the 40's. She also had developed a headache and some blurry vision, so she was given a dose of BMZ at that outpatient visit. She has a history of chronic headaches and does not use any daily meds for this. This morning, she was scheduled to come back to the clinic for an NST, to get the second dose of BMZ, and to recheck her LFTs. Starting this AM, she again had a headache, blurry vision with some flashing lights, shortness of breath, RUQ pain radiating to her back, and overall felt not like herself. She received the second dose of BMZ and her LFTs were noted to be twice the upper limit (ALT in 70s). Due to persistent subjective symptoms and concern for need for delivery, she was started on IV Mg and accepted as transfer to the [facility] service. On arrival, she reports a current headache which feels throbby and is a bit more frontal than herbaseline headache. She says she received Tylenol this morning at around 0630, and her headache and blurry vision had improved some, but were still present. She continues to feel the same shortness ofbreath, RUQ pain. Denies swelling that is worse than her baseline. Her blood pressures on transport and admission have been normal. Pt notes that she was checking herblood pressures at home and only noted intermittent mild range pressures in the 140's, no SRBPs. She took her home labetalol dose this AM, but not the afternoon dose. She also reports slightly decreased movement since arriving here. Denies LOF, vaginal bleeding, or contractions. Her is additionally complicated by GDMA2, currently managed with insulin NPH 22 units at bedtime. Notes that fasting sugars have been largely controlled over the last week, and noted her last fasting blood sugar this morning was 101. Obstetric history is notable for a prior x1 in 2017 for category II FH, which was uncomplicated. Surgical history is notable for laparoscopic endometriosis ablation (2020), hysteroscopy with polypectomy (2020), laparoscopic cholecystectomy (2023)She notes that during her hysteroscopy for poylp removal in 2020, she had a hemorrhage. On chart review, EBL was 600 mL. She did not receive a blood transfusion. Denies history of hemorrhage or pre-eclampsia. Patient has been NPO since 0830 this AM. notable for: - Superimposed preeclampsia w/ severe features (LFTs) - GDMA2 - Hx CS x1 (cat II) (2016) - Hx of diagnostic lap for endometriosis + hysteroscopy for polyp removal (11/05/2020) - Asthma - LOGAN/MDD - Hx of cholecystectomy (06/2024) - JUAN PABLO, no CPAP - Hx chronic headaches - Proteinuria in Lab Results: Lab Results Component Value Date HCT 39.6 02/19/2023 HCT 38.7 07/29/2007 HGB 12.5 02/19/2023 HGB 13.3 07/29/2007 Patient Active Problem List Diagnosis Date Noted Chronic hypertension with superimposed preeclampsia 05/14/2025 Priority: Medium Infection due to 2019 novel coronavirus 09/21/2022 Priority: Medium JUAN PABLO (obstructive sleep apnea) 10/01/2021 Priority: Medium AHI 10, desats to 84% HST Rx 5-20 ADAPT Anemia 12/11/2020 Priority: Medium Anesthesia complication 12/11/2020 Priority: Medium wakes up during procedure wakes up during procedure IUD (intrauterine device) in place 11/14/2020 Priority: Medium Due for removal 10/2025 Endometriosis determined by laparoscopy 10/20/2020 Priority: Medium Stage 2; Dr. Street Full-term premature rupture of membranes with onset of labor more than 24 hours following rupture 06/10/2017 Priority: Medium Mild tetrahydrocannabinol (THC) abuse in sustained remission 06/10/2017 Priority: Medium Few times per week: Quit with + UPT Few times per week: Quit with + UPT Mild episode of recurrent major depressive disorder 05/01/2016 Priority: Medium PTSD (post-traumatic stress disorder) 05/01/2016 Priority: Medium Tobacco use disorder 06/18/2015 Priority: Medium Adjustment disorder with mixed anxiety and depressed mood 07/05/2013 Priority: Medium Anxiety 08/22/2001 Priority: Medium Ativan PRN Depression 08/22/2001 Priority: Medium effexor XR 150 mg qd HISTORY History reviewed. No pertinent past medical history. History reviewed. No pertinent surgical history. History reviewed. No pertinent family history. Social History Tobacco Use Smoking status: Former Current packs/day: 0.00 Types: Cigarettes Quit date: 09/22/2021 Years since quittin.6 Smokeless tobacco: Never Substance Use Topics Alcohol use: Not Currently Drug use: Never Medications Prior to Admission Medication Sig Dispense Refill Last Dose/Taking acetaminophen (TYLENOL) 500 MG tablet Take 1,000 mg by mouth. 05/14/2025 Acetaminophen 325 MG CAPS Take by mouth. 05/14/2025 aspirin 81 MG EC tablet Take 81 mg by mouth daily. 05/13/2025 citalopram (CELEXA) 10 MG tablet Take 10 mg by mouth. 05/14/2025 insulin NPH 100 UNIT/ML vial Inject 20 Units subcutaneously at bedtime. 05/13/2025 labetalol (NORMODYNE) 100 MG tablet Take 100 mg by mouth 3 times daily. 05/14/2025 lamoTRIgine (LAMICTAL) 200 MG tablet Take 200 mg by mouth daily. 05/14/2025 Allergies Allergen Reactions Ibuprofen Hives and Rash Other reaction(s): Swelling, lips/tongue Other reaction(s): Hives Kiwi Hives Kiwi Extract Anaphylaxis Levofloxacin Anxiety Causes panic attacks Pineapple Anaphylaxis Sulfa Antibiotics Anaphylaxis No Known Allergies REVIEW OF SYSTEMS: A 10 point review of systems was completed and was negative other than as noted in the HPI. PHYSICAL EXAM Patient Vitals for the past 24 hrs: BP Temp Temp src Resp Height Weight 05/14/25 1800 -- -- -- -- 1.753 m (5' 9) (!) 144.7 kg (319 lb) 05/14/25 1722 132/64 -- -- -- -- -- 05/14/25 1705 -- 98.2 ??F (36.8 ??C) Oral 16 -- -- Gen: Resting in bed, no acute distress CV: Regular rate and rhythm, no rubs or gallops Lungs: Breathing non-labored. Lungs clear to auscultation bilaterally without crackles, wheezes, orrhoncii Abd: Gravid, non-tender, non-distended Ext: 1+ peripheral extremity edema; 1+ bilateral patellar reflexes, no clonus Presentation: Cephalic by US on 04/10. Estimated Weight: 1352g on 04/10/2025 (81%) FHT: Monitoring External FHT: Baseline 135 bpm; moderate variability; accels present; no decelerations TOCO 0 contractions in 10 minutes Studies: HELLP, BNP Assessment & Plan: 29 year old at 32w6d by 8w2d US, admitted as transfer for superimposed preeclampsia with severe features. is notable for GDMA2, hx prior CS x1, cholelithiasis. # Superimposed preeclampsia with severe features (LFTs) # History chronic headaches # Protienuria in Meeting criteria on 05/14/25 in setting of AST elevations twice the upper limit of normal (70s at OSH) with constellation of concerning subjective symptoms including headache, spots in vision, dyspnea, and RUQ pain. Reports that her headache improved this afternoon following Tylenol and on transfer admission she was reporting resolution of dypsnea/vision changes/RUQ pain. Given improved subjectivesymptoms and normotensive blood pressures, do not recommend delivery at this time. Discuss trying Tylenol > Reglan/Benadryl to further address headache, and would move towards delivery if LFTs continue to uptrend on repeat AM labs. In interim plan for NICU consultation and continuing IV Mg for seizure prophylaxis. - Symptoms: RUQ pain, headache, vision changes, SOB - Serial BP monitoring - BPs: Normotensive on arrival - Antihypertensives: RESERVATIONS AGENT labatelol 100mg TID; IV antihypertensives PRN for sustained severe range blood pressures (SBP>160, DBP>110 sustained over 15 minutes) - Labs: HELLP labs: AST 82, repeat in AM - Daily weights, strict I&Os - Continue IV magnesium for seizure prophylaxis, rate 2ghr - Mg level currently 3.8, subtherapeutic - Mg checks q4h - Plan for continuous monitoring - UPC 02/09/25: 0.21, 02/11/25: 0.29 - UPC: 0.39 04/11/25 # Gestational Diabetes A2 Currently overall controlled on insulin NPH 22 units at bedtime. Blood glucoses over the last week have been mostly in goal range. Sugars today have been in 100s while NPO; plan for regular diet and increased NPH dose to 33 units at bedtime in setting of betamethasone administration yesterday. Willmake NPO at midnight again pending AM labs to make decision regarding delivery. Will further supplement with mSSI for correction with BG checks. - NPH 22u qHS [held] > NPH 33u 05/14 PM - Blood glucose checks - TID AC, HS, AM fasting (eating) - Q4hrs (when NPO) - mSSI - Endocrinology consult not indicated at this time - Abe 04/10: GA 28wd3d EFW 81% (1352g) FL 88% - Will consider # Asthma Well controlled. Uses rescue inhaler infrequently. - RESERVATIONS AGENT albuterol PRN - Avoid hemabate in setting of PPH # PNC - Rh Pos, Rubella immune, Varicella immune - GCT: GDMA2 - GBS unk - GC/CT neg, RPR NR, Hep C NR, HIV NR, Hep B NR - Other labs wnl (all information from Scanned Image 03/12/25) - Growth US 04/10: GA 28wd3d EFW 81% (1352g) FL 88% ; Placenta: anterior # MDD # LOGAN # Hx SI - RESERVATIONS AGENT citalopram 10mg qAM - RESERVATIONS AGENT lamotrigine 200mg qAM # FWB: - Cat 1 tracing, reactive - Continuous Monitoring in s/o Mg - s/p BMZ #2/2 for lung maturity - Currently on Magnesium, since approx ~1100 - NICU for delivery - NICU consult placed - Intrauterine resuscitative measures prn - MOD: Repeat section, s/p TOLAC counseling as outpatient # PPH Risk: - Medium (IOL, augment with pit, HTN, mag, triple III, prolonged labor, precipitous labor/delivery,h/o abruption, >5 deliveries, fibroids, large baby, poly, multiples, general anesthesia, shoulder dystocia, lacs/epis, op delivery, hematoma)- IV, type and screen Patient discussed with Dr Kimberly Lovett, MS4 I have reviewed the above documentation by the medical student and agree with its contents. I have made any necessary edits accordingly. Paco Segura MD Obstetrics & Gynecology, PGY-3 05/14/2025 6:58 PM Cosigned by Dhruv Harris MD at 05/15/2025 3:40 PM CDT Associated attestation - Dhruv Harris MD - 05/15/2025 3:40 PM CDT Physician Attestation I did not see the patient on this date. I spoke to the transfer physician and received report about this patient and agree with transport. I spoke to the resident and agree with the assessment and plan and will see the patient if she remains undelivered in the morning. I spoke to the OB laborist covering and provided a report. Dhruv Harris MD 05/14/2025 documented in this encounter Consult Notes * Aleksandra Francisco, [employer] - 05/16/2025 10:14 AM CDTAssociated Order(s): SOCIAL WORK IP CONSULT *copied from baby's chart: NICU -INITIAL SOCIAL WORK ASSESSMENT DATA: Reason for Consult: NICU admission Presenting Information: Baby Anthony was born premature at 33w0d gestation and admitted to the NICU at [facility]. SW met with his parents, Fay and Kain, in Fay's room to introduce self and role, provide support, answer questions and assess for needs. Fay and Kain were open and engaged in conversation with SW. Living Situation: Verify address: yes, family lives in [place], [place]; are considering having Anthony transferred to [facility] to be closer to home but are unsure at this time County: Other: [place] People living within home: significant other/spouse -Kain and son: Nathan Minor children outside home: No Marital status: Social Support/Professional Community Support: Li have a robust support system of family and friends. They are interested in building community support with other NICU parents. SW discussedresource Hand to Hold for virtual support groups and peer support. Also let parents know to watchfor community building activities that occur occasionally in the hospital and/or NICU for patients and families. SW will additionally connect family to unit Child Family Life. 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 She experienced depression following the of her first child. She is currently connected to both a psychiatrist and therapist and has appointments scheduled already to support her during the period. ASSESSMENT: Coping: adequate Motivation/ability to access services: highly motivated and independent in accessing services Assessment of support system: stable, involved, appropriate, and adequate Level of engagement with social work: Appear open to and appreciative of ongoing therapeutic support, advocacy and connection with resources. Strengths: caring family, experienced parents, strong social support, willingness to accept support, reliable/stable housing, financial stable, stable employment, able & willing to advocate for self, connected to [facility] resources, connected to mental health resources, and willingness to have vulnerable conversations about emotions Vulnerabilities: distance from home, limited finances, other children at home needing care, and unexpected hospitalization INTERVENTION: conduit worker completed chart review and collaborated with the multidisciplinary team. Completed psychosocial assessment & introduction to maternal child health social work role and scope of practice. Facilitated service linkage with hospital and community resources. Identified stressors, barriers and family concerns. Provided support and active empathetic listening and validation. Provided psychoeducation on mood and anxiety disorders, assessed for any current symptoms or history. Orientation to the unit (parking, lodging, meals, visitation). Validated emotions and provided supportive listening. Assessed coping and adjustment to new diagnosis, subsequent hospital admission and treatment. PLAN/NEXT STEPS: SW will continue to follow throughout baby's NICU admission. ZAHRA Adhikari Acute Care Management [facility] For further questions/concerns reach us at Shortlist Console * Radha Montiel MD - 05/14/2025 11:00 PM CDTAssociated Order(s): ADVANCED PRACTICE PROVIDER IP CONSULT Images from the original note were not included. Neonatology Antepartum Counseling Consult: I was asked to provide antepartum counseling for Kaim Estes at the request of Dhruv Harris MD secondary to expected delivery in setting of pre-eclampsia with SF. Ms. Kami Estes is currently 32 weeks/ 6 days gestation (anticipated delivery on 05/15) and has a history significant for: GDMA2 Pre-eclampsia with severe features cHTN JUAN PABLO Betamethasone was administered on 05/13 and 05/14. Ms. Kami Estes, accompanied by her partner, was counseled on the expected hospital course, potential risks, and outcomes associated with an born at this gestation. The counseling included: morbidity, mortality, initial delivery room stabilization, respiratory course, lung development, nutrition, IV fluids and oral feeding, hypoglycemia, growth and development, and residential outcomes. I also explained the basic four criteria for discharge: that the baby had to be free of apnea; ableto maintain their body temperature; able to feed by bottle or breast well enough to; attain an adequate pattern of weight gain and growth. The patient had no remaining questions but was encouraged to contact the NICU via their caregivers should any arise. Please feel free to call and thank you for involving the NICU team in the care of your patient. Floor Time (min): 15 Face to Face Time (min): 20 Total Time (minutes): 35 More than 50% of my time was spent in direct, face to face, antepartum counseling with the above patient. Mother assented to routine medications after ; Erythromycin, Vitamin K injection. Plan to re-address Hepatitis B prior to delivery or shortly thereafter. She also assented to donor breastmilk. Radha Montiel MD NPM Fellow Cosigned by Gallo Rae MD at 05/16/2025 5:41 PM CDT Associated attestation - Gallo Rae MD - 05/16/2025 5:41 PM CDT Physician Attestation I did not see the patient on this date. Gallo Rae MD documented in this encounter Miscellaneous Notes * Plan of Care - Gerri Goodman RN - 05/18/2025 3:14 PM CDT Goal Outcome Evaluation: Patient is stable and has well managed pain and discharging to home today. Education with catheter cares and incision cares done by resource nurse. Discharge goals met. * Note - Marissa Dawn RN - 05/18/2025 12:11 PM CDT This note was copied from a baby's chart. Follow Up Note Reason for visit/ call/ message (age: 3 days) (corrected GA: 33w3d): Dispense Symphony rental pump. Check in on pumping comfort/milk coming in. Supply: Sandra is trying to pump about every 3-4 hours, getting up to 9ml per pumping today. Dad is logging volumes on paper. Significant changes (medications, equipment, comfort, etc): Sandra likely will discharge to home today; reports her provider deciding on potential medication for blood pressure. Hand Hugs/ Skin to Skin/ Oral Care/ Nuzzling/ Latching: Both parents holding skin to skin often, shared how much they are enjoining it. Reviewed benefits on bonding and milk supply. Education given: Dispensed rental Symphony pump; discussed when to switch to maintain setting. Went over troubleshooting tips and where to return/exchange at [facility] location in future. Parents are unsure on insurance coverage currently. Sandra also has a wearable Mom Cozy pump; we discussed pros/cons of different pump types. Reviewed recommended pumping schedule for vermin exterminator milk supply. Discussed hands on pumping with rational; brought band to make hands free pumping bra and explained technique. Encouraged making HFPB with old sportsbra or buying commercial one as alternate. Went over technique of hand expression, benefits, rational, and timing. Discussed where to obtain pumping supplies in NICU, milk storage and handling. Plan: Continue to monitor milk supply/comfort with pumping; check in around DOL 5. Sandra aware of availability should any needs arise prior to next scheduled check in. JOSE Gomez, RN, IBCLC [employer]: [facility] [employer] [phone] Office: [phone] * Plan of Care - Gladys Moreno RN - 05/18/2025 12:04 PM CDT Goal Outcome Evaluation: Plan of Care Reviewed With: patient Problem: Adult Inpatient Plan of Care Goal: Optimal Comfort and Wellbeing Outcome: Progressing Intervention: Provide Person-Centered Care Recent Flowsheet Documentation Taken 05/18/2025 08 by Gladys Moreno RN Trust Relationship/Rapport: care explained choices provided emotional support provided empathic listening provided questions answered Afebrile. Tachy 100's. Other VSS. See provider notification. C/o pain and medicated with relief. Pumping for baby in NICU. Voiding and had a BM already. Anticipate discharge today. * Provider Notification - Gladys Moreno RN - 05/18/2025 8:42 AM CDT FYI HR 111 this morning. Off labetalol. Let me know if you want me to do anything more. Dr. Natalie Aquino G1 resident text paged and updated. * Plan of Care - Chey Starkey RN - 05/18/2025 7:07 AM CDT Goal Outcome Evaluation: Plan of Care Reviewed With: patient, spouse Overall Patient Progress: improvingOverall Patient Progress: improving Data: Vital signs within normal limits. checks within normal limits - see flow record. Patient eating and drinking normally. Patient able to empty bladder independently and is up ambulating. No apparent signs of infection. Incision healing well. Patient performing self cares and is able to care for infant. Action: Patient medicated during the shift for pain and cramping. See MAR. Patient reassessed within 1 hour after each medication and pain was improved - patient stated she was comfortable. Patient education done about pain management. See flow record. Response: Positive attachment behaviors observed with infant. Support persons present. Plan: Continue with current plan of care. * Plan of Care - Gerri Goodman RN - 05/17/2025 6:31 PM CDT Goal Outcome Evaluation: Problem: Adult Inpatient Plan of Care Goal: Optimal Comfort and Wellbeing Outcome: Progressing Problem: Hypertensive Disorders in Goal: Patient- Stabilization Outcome: Progressing Overall Patient Progress: improvingOverall Patient Progress: improving Outcome Evaluation: Patient has well managed pain, denies any headache, vision changes, shortness of breath and RUQ/epigastric pain. Ambulating well in the room and had some steps in hallways. Showered with minimal assistance. Has had bowel movement and assisted with perineal cares. Catheter done 2x. Pumping and hand expressing for baby in NICU. Will continue with plan of care. * Plan of Care - Dariela Howard PT - 05/17/2025 1:15 PM CDT Physical Therapy Discharge Summary Reason for therapy discharge: All goals and outcomes met, no further needs identified. Progress towards therapy goal(s). See goals on Care Plan in Epic electronic health record for goal details. Goals met Therapy recommendation(s): No further therapy is recommended. * Plan of Care - Bradni Robertson RN - 05/17/2025 6:21 AM CDT Goal Outcome Evaluation: Plan of Care Reviewed With: patient, spouse Overall Patient Progress: improvingOverall Patient Progress: improving Problem: Adult Inpatient Plan of Care Goal: Optimal Comfort and Wellbeing Outcome: Progressing Intervention: Provide Person-Centered Care Recent Flowsheet Documentation Taken 05/16/20252137 by Brandi Robertson RN Trust Relationship/Rapport: care explained choices provided empathic listening provided questions answered questions encouraged thoughts/feelings acknowledged VSS. Patient taking Tylenol and Oxycodone for pain management. Incision with steri-strips, open to air, healing well. Patient denies headache, vision changes, RUQ pain or shortness of breath. Patientneeding some assist ambulating to bathroom to freshen up and change pad, eating and drinking well, pumping and visiting in NICU. Patient with zavala catheter, intact and draining well, catheter care done. Continue with plan of care. * Plan of Care - Yamile Rojas RN - 05/16/2025 7:20 PM CDT Assumed care at 1530. VSS, afebrile. Uterine assessment as charted. Patient pumping frequently for infant son in NICU. Plan to keep zavala in for 7 days postoperatively, zavala cares provided. Patient ambulated in room with no symptoms reported or noted. Spouse Kain at bedside providing support. Visiting NICU at this time, report given to ZEN Paz who assumes care at this time. Goal Outcome Evaluation: Progressing, reviewed with patient. * Plan of Care - Mary Verdugo RN - 05/16/2025 3:45 PM CDT Goal Outcome Evaluation: Pt condition improving this shift. VSS, checks wdl. Able to get up to wheelchair and spend time with baby in NICU. Pumping with minimal assistance, appreciated visit from today. Reportspain adequately controlled with medications (see MAR). Denies vision change, SOB, epigastric pain. Continues to have minor headache mostly centered around her left eye, she reports it feels much lessthan it did before delivery. Plan to continue with routine postop cares. Bedside report to A Bob RN at 1515. * Note - Radha Booth RNC - 05/16/2025 2:27 PM CDT This note was copied from a baby's chart. Admission Note Baby Information: Infant's first name: Anthony Loving) medical history: 33+0, RDS Testing Lead needed? No goal (if known): Breastfeed history: Her first had difficulty latching and she was not given support and education; she tried triple feeding for a week at home then gave up. She is hopeful with better education and support she has a better outcome and is successful this time. Mother's Information: Name: Sandra Occupation: Age: 31 Delivery type: [place]: [employer] Pump for home use: Has a Mom Cozy wearable and a cheap pump I bought, I can't remember the brand.Plans to rent a [employer] for now. Partner's name: Kain Occupation: Relevant maternal medical and social hx: Information for the patient's mother: Kami Estes [[id number]] History reviewed. No pertinent past medical history., Information for the patient's mother: Kami Estes [[id number]] Patient Active Problem List Diagnosis Adjustment disorder [...] Tobacco use disorder PTSD (post-traumatic stress disorder) Chronic hypertension with superimposed preeclampsia , and Information for the patient's mother: Kami Estes [[id number]] Medications Prior to Admission Medication Sig Dispense Refill Last Dose/Taking acetaminophen (TYLENOL) 500 MG tablet Take 1,000 mg by mouth. 05/14/2025 Acetaminophen 325 MG CAPS Take by mouth. 05/14/2025 aspirin 81 MG EC tablet Take 81 mg by mouth daily. 05/13/2025 citalopram (CELEXA) 10 MG tablet Take 10 mg by mouth. 05/14/2025 insulin NPH 100 UNIT/ML vial Inject 20 Units subcutaneously at bedtime. 05/13/2025 labetalol (NORMODYNE) 100 MG tablet Take 100 mg by mouth 3 times daily. 05/14/2025 lamoTRIgine (LAMICTAL) 200 MG tablet Take 200 mg by mouth daily. 05/14/2025 Relevant maternal medications: Maternal risk factors: Depression Anxiety Hypertension (details) pre-e and chronic hypertension Diabetes (type) gestational PTSD Surgical Admission Education given: [x]Admission packet [x]Kangaroo care [x]Benefits of breast milk [x]How breast milk is made [x]Stages of milk production [x]Milk supply/ goal volumes [x]Hand expression [x]Hands-on pumping [x]Collecting, labeling, transporting milk [x]Cleaning, sanitizing pump parts, [x]Medela colostrum protector use and disposal recommendations [x]Storage of milk [x]Benefits and use of pasteurized donor human milk Parents very eager and receptive to learning, no one taught us anything last time. She had just finished pumping when I arrived; I reviewed hand expression technique which she was able to return demonstration with great results. Parents stated with mom's OCD and anxiety I'm not allowed to look up anything on [employer], he looks things up for me and helps me get the information I need. I applauded her self-awareness and let her know we are here daily to ask questions to as well. We discussed how many families find, despite the stress of the NICU, they have a much better feeding experience due to the support and education. She talked about having a all or nothing mentality last time, and we talked about the many ways we can help her find a successful middle ground. She was told last time that she couldn't give her baby a bottle or they'd never latch; we talked about how bottle feeding can fit into the relationship and assured her we would help her navigate how to do both. Parents very reassured and hopeful after visit. Radha Booth RNC-ARCHIE, IBCLC [employer]: [employer] [phone] Office: [phone] * Plan of Care - Brandi Robertson RN - 05/16/2025 5:26 AM CDT Goal Outcome Evaluation: Plan of Care Reviewed With: patient, spouse roblem: Adult Inpatient Plan of Care Goal: Optimal Comfort and Wellbeing Outcome: Progressing Intervention: Provide Person-Centered Care Recent Flowsheet Documentation Taken 05/15/20252214 by Brandi Robertson RN Trust Relationship/Rapport: care explained choices provided emotional support provided empathic listening provided questions answered reassurance provided thoughts/feelings acknowledged Data: Vital signs within normal limits. checks within normal limits - see flow record. Patient eating and drinking normally. Patient with zavala catheter, with order to keep zavala in for 7 days, catheter care done. No apparent signs of infection. Patient states she feels mildly dizzy evenwhen she is on the bed. Mag stopped at 3:28 am. Patient was on CPAP while she was sleeping, RT showed patient how to use device. Patient able to ambulate to the bathroom without feeling dizzy, neededsome assistance. Action: Patient medicated during the shift for pain and cramping. See MAR. Patient reassessed within 1 hour after each medication and pain was improved - patient stated she was comfortable. Patient education done about self care. Response: Patient pumping for in NICU. Support person, spouse present. Plan: Continue with plan of care.. * Plan of Care - Gerri Goodman RN - 05/15/2025 6:58 PM CDT Goal Outcome Evaluation: Plan of Care Reviewed With: patient, spouse Problem: Hypertensive Disorders in Goal: Patient- Stabilization Outcome: Progressing Overall Patient Progress: improvingOverall Patient Progress: improving Outcome Evaluation: Patient is stable , has mild pain but denies any pre-e symptoms and BP are normotensive. She was able to ambulate to the bathroom with stand by assist but she felt lightheaded andhearing was muffed after oral cares. Rested on chair for few minutes and walked back to bed safely.She's pumping for baby in NICU. Will continue with plan of care. * Plan of Care - Annmarie Singh RN - 05/15/2025 9:38 AM CDT Pt stable throughout pacu stay, pain well controlled with dilaudid and tylenol. To NICU to visit baby and to pp, report to Gerri ZALDIVAR who assumed cares. * Brief Op Note - Shannon Mustafa MD - 05/15/2025 5:59 AM CDT [facility] AUTOMATION CONTROL TECHNICIAN Brief Operative Note Pre-operative diagnosis: - Intrauterine at 33w0d - Superimposed preeclampsia w/ severe features (LFTs) - GDMA2 - Hx CS x1 (cat II) (2016) - Hx of dsc lap for endo + hD&C for polyp removal (11/05/2020) - LOGAN/MDD - Hx of cholecystectomy (06/2024) - JUAN PABLO, no CPAP - Hx chronic headaches - Proteinuria in Post-operative diagnosis: Same Superficial bladder injury Procedure: Procedure(s): section Cystoscopy Surgeon: Dr. Theresa aPrk MD Manager Of Information(s): Balta Goyal MD PGY-3 Shannon Mustafa MD PGY-2 Nicholas Moya, MS-3 Justyna Lomeli MD Anesthesia: General endotracheal anesthesia Estimated blood loss: 1313 mL Total IV fluids: 2000 mL, crystalloid Blood transfusion: No transfusion was given during surgery Total urine output: 1250 mL Drains: Zavala catheter Specimens: Cord blood, cord segment, cord gases Implants: None Complications: Superficial injury to bladder, oversewn with 3-0 Vicryl. See op note for full details. Condition: Patient taken to recovery in stable condition. Findings: Moderate subcutaneous scarring and rectofascial adhesions. Injury to bladder serosa noted on entry, see operative report for details on repair. Cystoscopy confirmed to injury to internal bladder mucosa, bilateral UO with jets. Clear amniotic fluid Liveborn male infant. Born at 0322 on [birth year]. Apgars 7 at 1 minute & 8 at 5 minutes. Weight 2170 g. Normal uterus, fallopian tubes, and ovaries. Cord gasses below pH Cord Blood Arterial 7.16 - 7.39 7.22 pCO2 Cord Blood Arterial 35 - 71 mm Hg 56 pO2 Cord Blood Arterial 10 - 33 mm Hg 19 Bicarbonate Cord Blood Arterial 16 - 24 mmol/L 23 Base Excess/Deficit >-10.0 - -2.0 mmol/L -6.0 pH Cord Blood Venous 7.21 - 7.45 7.27 pCO2 Cord Blood Venous 27 - 57 mm Hg 47 pO2 Cord Blood Venous 21 - 37 mm Hg 27 Bicarbonate Cord Blood Venous 16 - 24 mmol/L 21 Base Excess/Deficit Cord Venous >-10.0 - -2.0 mmol/L -5.9 * Op Note - Theresa Park MD - 05/15/2025 2:25 AM CDT [facility] Operative Note Surgery Date: 05/15/2025 Surgeon: Surgeons and Role: * Theresa Park MD - Primary * Justyna Lomeli MD - Assisting * Balat Goyal MD - Resident - Assisting * Shannon Mustafa MD - Resident - Assisting * Nicholas Moya, MS-3 Pre-op Diagnosis: - Intrauterine at 33w0d - Superimposed preeclampsia w/ severe features (LFTs) - GDMA2 - Hx CS x1 (cat II) (2017) - Hx of dsc lap for endo + hD&C for polyp removal (11/05/2020) - LOGAN/MDD - Hx of cholecystectomy (06/2024) - JUAN PABLO, no CPAP - Hx chronic headaches - Proteinuria in Post-op Diagnosis: - Same, now delivered - hemorrhage - injury of the bladder muscularis, repaired Procedure: Repeat low-transverse section with double layer uterine closure via Pfannenstiel skin incision, repair of bladder muscularis, cystoscopy Anesthesia: Spinal > GETA EBL: 1312 mL IVF: 2000 mL crystalloid UOP: 1250 mL clear yellow urine at the end of the case Drains: Zavala Catheter Specimens: ID Type Source Tests Collected by Time Destination A : Placenta Placenta SEE PROVIDERS ORDERS Theresa Park MD 05/15/2025 2:44 AM B : Tissue Umbilical Cord SEE PROVIDERS ORDERS Theresa Park MD 05/15/2025 2:45 AM C : Cord blood Umbilical Cord OR DOCUMENTATION ONLY Theresa Park MD 05/15/2025 2:45 AM D : Cord blood, arterial Umbilical Cord OR DOCUMENTATION ONLY Theresa Park MD 05/15/2025 3:23 AM E : Cord blood, venous Umbilical Cord OR DOCUMENTATION ONLY Theresa Park MD 05/15/2025 3:23 AM Indications: Kami Estes is a 29 year old at 33w0d admitted for SI pre-eclampsia w/ SF. The patientdeveloped vision changes resistant to treatment, so delivery was recommended. was complicated by the above. The risks, benefits, and alternatives of section were discussed with thepatient, and she agreed to proceed. Written informed consent was signed, including consent for blood transfusions. Findings: - Dense subcutaneous and rectofascial adhesions - Clear amniotic fluid - Moderate adhesions between the bladder and the uterus. - Liveborn infant in LOT cephalic presentation. Apgars of 7 and 8 at 1 and 5 minutes. Weight 2170g - Arterial cord pH 7.22, base deficit -6.0. Venous cord pH 7.27, base deficit -5.9. - Normal uterus, fallopian tubes, and ovaries. - Injury to bladder muscularis on entry. Cystoscopy confirmed no injury to internal bladder mucosa and watertight repair. No stitches visualized in the bladder. Bilateral UO with jets. Procedure Details: The patient was brought to the operating room, where spinal anesthesia was administered. Prior to incision, she received ancef. She was placed in the dorsal supine position with a slight leftward tilt. She was prepped and draped in the usual sterile fashion. A surgical time out was performed. A pfannenstiel skin incision was made with the scalpel through her previous incision, and carried down tothe underlying fascia with sharp and blunt dissection. The fascia was incised in the midline, and the incision was sharply extended bilaterally. The superior aspect of the fascia was grasped; howeverthe adhesions were so dense that the fascia was unable to be dissected off of the underlying rectus muscles. At this time, the patient was unable to tolerate the procedure and was placed under general anesthesia. The rectus muscles were in the midline and the peritoneum was entered with carissa clamps. Dissection then continued and in order to make more space for delivery, the rectus muscles were transsected bilaterally at the level of the fascia with cautery, ensuring hemostasis. Two perforators, one on the left and one on the right, were suture ligated with 2-0 Vicryl for hemostasisto good effect. Once adhesions were lysed, the bladder blade was placed. The vesicouterine peritoneum was incised in the midline, and the incision was extended laterally with the Metzenbaum scissors.A bladder flap was created digitally and the bladder blade was replaced. A transverse hysterotomy was made with the scalpel in the lower uterine segment, and the incision was extended with digital pressure. The infant was noted to be in the LOT position, and was delivered atraumatically. The shoulders delivered easily. The cord was doubly clamped and cut immediately and the infant was handed off to the awaiting nursery staff. A segment of cord was cut and cord blood was obtained. The placenta was delivered with gentle traction on the umbilical cord and uterine massage. The uterus was exteriorized and cleared of all clots and debris. Uterine tone was noted to be boggy and hemabate and tranexamic acid were given with good improvement. The hysterotomy was closed with a running locked suture of 0 Vicryl, and an area on the left of the incision was imbricated with 0 Vicryl and noted to be hemostatic. The posterior cul-de-sac was cleared of all clots and debris. The uterus was returned to the abdomen. The pericolic gutters were cleared of all clots and debris. The hysterotomy was reexamined and noted to be hemostatic. The fascia and rectus muscles were examined and areas of oozing were controlled with electrocautery. The bladder appeared to have a possible injury in the dome. The bladder was backfilled with saline and the zavala brought up, identifying that the muscularis was denuded but the bladder was watertight. Urology was contacted, and they agreed with the plan to oversew the muscularis. The muscularis layer was closed with interrupted sutures of 3-0 vicryl. Cystoscopy was then performed with findings as above and watertight repair again confirmed. The zavala was replaced and attention returned to the abdomen. Surgiflo was placed on several cut edges of the rectus where venous oozing was identified. The uterus, bladder, rectus and fascia were inspected and found to be hemostatic. The fascia was closed with2 running 0-Looped PDS tied in the midline. The subcutaneous tissue was irrigated and areas of oozing were controlled with electrocautery. The subcutaneous tissue was closed with 3-0 plain gut, and an additional layer was closed with 3-0 Vicryl. The skin was closed with 4-0 monocryl and covered with steri-strips and a sterile dressing. All sponge, needle, and instrument counts were correct. The patient tolerated the procedure well, and was transferred to recovery in stable condition. Dr. Park was present for the procedure. Complications: Injury to bladder mucosa, oversewn with 3-0 Vicryl. Balta Goyal MD Obstetrics and Gynecology, PGY-3 05/15/2025 8:43 AM OBGYN Attending Addendum I, Theresa Park, was scrubbed and present for the entire procedure. I have reviewed Dr. Goyal's operative report and edited where necessary. I agree with the documentation of findings. Due to the concern for bladder injury, Dr. Lomeli was called to the OR to briefly assist with identification of the borders of the injury and closure. Dr. Lomeli was actively assisting for approximately 40 minutes. Theresa Park MD, MSCI Date of Service: 05/15/25 * Plan of Care - Elva Neely RN - 05/14/2025 7:05 PM CDT Patient arrived to unit via ambulance from [facility]. Patient on magnesium upon arrival. Upon arrival reports MCDONALD and RUQ pain. Patient states she also notices occasional SOB. Reflexes +2, no clonus. Denies LOF, vaginal bleeding and cramping. Labs drawn, see doc flow. Dr. Segura at bedside to assess. Category I tracing. at bedside, plan of care ongoing. documented in this encounter Plan of Treatment Upcoming Encounters Date Type Department Care Team (Late st Contact Info) Description 05/23/2025 8:00 AM CDT Appointment [facility] [address] [place] [address] Delaney Watkins MD [address] [place] [address] 05/23/2025 1:45 PM CDT Office Visit [facility] [address] [facility] [address] [place] [address] Annmarie Rodrigues MD [address] [facility] [address] [place], [place] [id number] Pending Results Name Type Priority Associated Diagnoses Date/Time POC US Guidance Needle Placement Imaging Routine 05/15/2025 5:47 AM CDT Placenta path order and indications Pathology and Cytology Routine 05/15/2025 7:10 AM CDT Scheduled Orders Name Type Priority Associated Diagnoses Order Schedule POC US Guidance Needle Placement Imaging Routine One time imagin g for 1 Occurrences starting 05/15/2025 until 05/15/2025 Placenta path order and indications Pathology and Cytology Routine Routine for 1 Occurrences starting 05/15/2025 until 05/15/2025, 1 completed X-ray Voiding cystogram Imaging Radiology After Discharge S/P bladder repair Expected: 05/22/2025 (Approximate), Expires: 08/14/2025 Scheduled Procedures Name Priority Associated Diagnoses Date/Ti me SECTION Chronic hypertension with superimposed preeclampsia Scheduled Referrals Name Type Priority Associated Diagnoses Orde r Schedule Home Care Referral Referral Routine: Next available opening Chronic hypertension with superimposed preeclampsia Ordered: 05/18/2025 documented as of this encounter Procedures Procedure Name Priority Date/Time Associated Diagnosis Comments EXTRA TUBE Routine 05/18/2025 6:23 AM CDT EXTRA GREEN TOP (LITHIUM HEPARIN) TUBE Routine 05/18/2025 6:23 AM CDT PLATELET COUNT Routine 05/18/2025 6:23 AM CDT HEMOGLOBIN Add-On 05/18/2025 6:23 AM CDT HEMOGLOBIN Routine 05/16/2025 7:24 AM CDT AST Routine 05/16/2025 7:24 AM CDT ALT Routine 05/16/2025 7:24 AM CDT HEMOGLOBIN Routine 05/15/2025 8:19 PM CDT CBC WITH PLATELETS (LIMITED OCCURRENCES) Routine 05/15/2025 9:33 AM CDT COMPREHENSIVE METABOLIC PANEL (LIMITED OCCURRENCES) Routine 05/15/2025 9:33 AM CDT GLUCOSE BY METER Routine 05/15/2025 6:21 AM CDT GLUCOSE BY METER Routine 05/15/2025 2:07 AM CDT CYSTOURETHROSCOPY 05/15/2025 2:0 6 AM CDT delivery w/o mention of indication, deliv, curr hospitaliz SECTION 05/15/2025 2:06 AM CDT delivery w/o mention of indication, deliv, curr hospitaliz CBC WITH PLATELETS STAT 05/15/2025 1: [address] HEAD W/O CONTRAST STAT 05/14/2025 11:58 PM CDT GLUCOSE BY METER Routine 05/14/2025 8:51 PM CDT GLUCOSE BY METER Routine 05/14/2025 7:37 PM CDT GROUP B STREP PCR Routine 05/14/2025 6:5 4 PM CDT TYPE AND SCREEN, ADULT Timed 5:06 PM CDT TREPONEMA ABS W REFLEX TO RPR AND TITER Routine 05/14/2025 5:06 PM CDT MAGNESIUM STAT 05/14/2025 5:06 PM CDT COMPREHENSIVE METABOLIC PANEL STAT 05/14/2025 5:06 PM CDT ABO/RH TYPE AND SCREEN Timed 5:06 PM CDT CBC WITH PLATELETS STAT 05/14/2025 5: 06 PM CDT documented in this encounter Results * (ABNORMAL) Hemoglobin (05/18/2025 6:23 AM CDT) Hemoglobin 8.6(L) 11.7 - 15.7 g/dL 05/18/2025 8:58 AM CDT UR [facility] Blood STRUCTURE OF LEFT UPPER LIMB / Unknown Venipuncture / Unknown 05/18/2025 6:23 AM CDT 05/18/2025 6:34 AM CDT us Sapphire Vargas MD LAB - BLOOD ORDERABLES Final Result UR LABORATORY [facility] [address] [facility], [address] * Extra Green Top (Harvey Heparin) Tube (05/18/2025 6:23 AM CDT) Hold Specimen JIC 05/18/2025 8:16 AM CDT UR [facility] Blood STRUCTURE OF LEFT UPPER LIMB / Unknown Venipuncture / Unknown 05/18/2025 6:23 AM CDT 05/18/2025 7:10 AM CDT us Theresa Park MD LAB - BLOOD ORDERABLES Final Result UR [facility]AT[facility] [address] [place] [address], [address] * Platelet count (05/18/2025 6:23 AM CDT) Platelet Count 315 150 - 450 10e3/uL 05/18/2025 6:39 AM CDT UR [facility] MCV 82.5 78.0 - 100.0 fL 05/18/2025 6:39 AM CDT UR [facility] Blood STRUCTURE OF LEFT UPPER LIMB / Unknown Venipuncture / Unknown 05/18/2025 6:23 AM CDT 05/18/2025 6:34 AM CDT Balta Goyal MD LAB - BLOOD ORDERABLES Fi nal Result UR LABORATORY [facility] [address] [place] [address], [address] * (ABNORMAL) ALT (05/16/2025 7:24 AM CDT) ALT 80(H) 0 - 50 U/L 05/16/2025 8:3 1 AM CDT UR [facility] Blood BLOOD SPECIMEN / Unknown Venipuncture / Unknown 05/16/2025 7:24 AM CDT 05/16/2025 8:12 AM CDT Delaney Watkins MD LAB - BLOOD ORDERABLES Final Re sult UR LABORATORY [facility] [address] [place] [address], [address] * AST (05/16/2025 7:24 AM CDT) AST 39 0 - 45 U/L 05/16/2025 8:3 1 AM CDT UR [facility] Blood BLOOD SPECIMEN / Unknown Venipuncture / Unknown 05/16/2025 7:24 AM CDT 05/16/2025 8:12 AM CDT us Delaney Watkins MD LAB - BLOOD ORDERABLES Final Re sult UR LABORATORY [facility] [address] [place] [address], [address] * (ABNORMAL) Hemoglobin (05/16/2025 7:24 AM CDT) Hemoglobin 8.7(L) 11.7 - 15.7 g/dL 05/16/2025 8:15 AM CDT UR LAB[facility] MCV 84.8 78.0 - 100.0 fL 05/16/2025 8:15 AM CDT UR [facility] Blood BLOOD SPECIMEN / Unknown Venipuncture / Unknown 05/16/2025 7:24 AM CDT 05/16/2025 8:12 AM CDT Balta Goyal MD LAB - BLOOD ORDERABLES Fi nal Result UR LAB[facility]ATORY [facility] [address] [place] [address], [address] * (ABNORMAL) Hemoglobin (05/15/2025 8:19 PM CDT) Hemoglobin 9.5(L) 11.7 - 15.7 g/dL 05/15/2025 8:28 PM CDT UR [facility] MCV 84.1 78.0 - 100.0 fL 05/15/2025 8:28 PM CDT UR [facility] Blood STRUCTURE OF RIGHT UPPER LIMB / Unknown Venipuncture / Unknown 05/15/2025 8:19 PM CDT 05/15/2025 8:25 PM CDT us Theresa Park MD LAB - BLOOD ORDERABLES Final Result UR [facility]AT[facility] [address] [facility] [place] [address], [facility] * (ABNORMAL) Comprehensive Metabolic Panel (Limited Occurrences) (05/15/2025 9:33 AM CDT) Sodium 131(L) 135 - 145 mmol/L 05/15/2025 9:56 AM CDT UR LAB[facility]ORY Potassium 3.8 3.4 - 5.3 mmol/L 05/15/2025 9:56 AM CDT UR [facility] Carbon Dioxide (CO2) 17(L) 22 - 29 mmol/L 05/15/2025 9:56 AM CDT UR [facility] Anion Gap 12 7 - 15 mmol/L 05/15/2025 9:56 AM CDT UR [facility] Urea Nitrogen 6.9 6.0 - 20.0 mg/dL 05/15/2025 9:56 AM CDT UR [facility] Creatinine 0.54 0.51 - 0.95 mg/dL 05/15/2025 9:56 AM CDT UR [facility] GFR Estimate >90 >60 mL/min/1.7 3m2 05/15/2025 9:56 AM CDT UR [facility] Comment:eGFR calculated us2020 CKD-EPI equation. Calcium 7.4(L) 8.8 - 10.4 mg/dL 05/15/2025 9:56 AM CDT UR [facility] Chloride 102 98 - 107 mmol/L 05/15/2025 9:56 AM CDT UR [facility] Glucose 101(H) 70 - 99 mg/dL 05/15/2025 9:56 AM CDT [facility] Alkaline Phosphatase 72 40 - 150 U/L 05/15/2025 9:56 AM CDT [facility] AST 50(H) 0 - 45 U/L 05/15/2025 9:56 AM CDT UR [facility] ALT 96(H) 0 - 50 U/L 05/15/2025 9:56 AM CDT UR [facility] Protein Total 6.1(L) 6.4 - 8.3 g/dL 05/15/2025 9:56 AM CDT UR LAB[facility]ORY Albumin 3.2(L) 3.5 - 5.2 g/dL 05/15/2025 9:56 AM CDT UR LABORATORY Bilirubin Total 0.2 <=1.2 mg/dL 05/15/2025 9:56 AM CDT UR LABORATORY Blood STRUCTURE OF RIGHT UPPER LIMB / Unknown Venipuncture / Unknown 05/15/2025 9:33 AM CDT 05/15/2025 9:37 AM CDT us Paco Segura MD LAB - BLOOD ORDERABLES Julianna padron Result UR LABORATORY [facility] Acute [facility] Lab [address], [address] [place] [id number] * (ABNORMAL) CBC with Platelets (Limited Occurrences) (05/15/2025 9:33 AM CDT) WBC Count 16.31(H) 4.00 - 11.00 10e3/uL 05/15/2025 9:40 AM CDT UR LABORATORY RBC Count 3.53(L) 3.80 - 5.20 10e6/uL 05/15/2025 9:40 AM CDT UR LABORATORY Hemoglobin 9.7(L) 11.7 - 15.7 g/dL 05/15/2025 9:40 AM CDT UR LABORATORY Hematocrit 29.6(L) 35.0 - 47.0 % 05/15/2025 9:40 AM CDT UR LABORATORY MCV 83.9 78.0 - 100.0 fL 05/15/2025 9:40 AM CDT UR LABORATORY MCH 27.5 26.5 - 33.0 pg 05/15/2025 9:40 AM CDT UR LABORATORY MCHC 32.8 31.5 - 36.5 g/dL 05/15/2025 9:40 AM CDT UR LABORATORY RDW 15.2(H) 10.0 - 15.0 % 05/15/2025 9:40 AM CDT UR LABORATORY Platelet Count 325 150 - 450 10e3/uL 05/15/2025 9:40 AM CDT UR LABORATORY Blood STRUCTURE OF RIGHT UPPER LIMB / Unknown Venipuncture / Unknown 05/15/2025 9:33 AM CDT 05/15/2025 9:37 AM CDT us Paco Segura MD LAB - BLOOD ORDERABLES Julianna padron Result UR LABORATORY [facility] [address] [place] [address], Room [address] * (ABNORMAL) Glucose by meter (05/15/2025 6:21 AM CDT) GLUCOSE BY METER POCT 107(H) 70 - 99 mg/dL 05/15/2025 6:28 AM CDT UR LABORATORY POC Blood, Capillary BLOOD SPECIMEN / Unknown 05/15/2025 6:21 AM CDT 05/15/2025 6:28 AM CDT Dhruv BROWN - BEÁNGELA POCT Final Re sult Performing Organization Address City/[facility] Co de Phone Number UR LABORATORY POC [facility] [address] [place] [address], [address] [phone] * (ABNORMAL) Glucose by meter (05/15/2025 2:07 AM CDT) GLUCOSE BY METER POCT 103(H) 70 - 99 mg/dL 05/15/2025 2:17 AM CDT UR LABORATORY POC Blood, Capillary BLOOD SPECIMEN / Unknown 05/15/2025 2:07 AM CDT 05/15/2025 2:17 AM CDT Dhruv Lujan BEÁNGELA POCT Final Re sult UR LABORATORY POC [facility] [address] [facility] [address], [address] [place] [phone] * (ABNORMAL) CBC with platelets (05/15/2025 1:42 AM CDT) WBC Count 13.32(H) 4.00 - 11.00 10e3/uL 05/15/2025 1:46 AM CDT UR LABORATORY RBC Count 4.05 3.80 - 5.20 10e6/uL 05/15/2025 1:46 AM CDT UR LABORATORY Hemoglobin 11.0(L) 11.7 - 15.7 g/dL 05/15/2025 1:46 AM CDT UR LABORATORY Hematocrit 32.9(L) 35.0 - 47.0 % 05/15/2025 1:46 AM CDT UR LABORATORY MCV 81.2 78.0 - 100.0 fL 05/15/2025 1:46 AM CDT UR LABORATORY MCH 27.2 26.5 - 33.0 pg 05/15/2025 1:46 AM CDT UR LABORATORY MCHC 33.4 31.5 - 36.5 g/dL 05/15/2025 1:46 AM CDT UR LABORATORY RDW 15.2(H) 10.0 - 15.0 % 05/15/2025 1:46 AM CDT UR LABORATORY Platelet Count 341 150 - 450 10e3/uL 05/15/2025 1:46 AM CDT UR LABORATORY Blood BLOOD SPECIMEN / Unknown Venipuncture / Unknown 05/15/2025 1:42 AM CDT 05/15/2025 1:44 AM CDT us Balta Goyal MD LAB - BLOOD ORDERABLES Fi nal Result UR LABORATORY [facility] Acute [facility] Lab [address] [facility], [address] [phone] * CT Head w/o Contrast (05/14/2025 11:58 PM CDT) Anatomical Region Laterality Modality Head, SUBRAD CT NEURO, SUBRA D CT NEURO, UMP CT NEURO, RAD CT Computed Tomography Impressions 05/15/2025 6:56 AM CDT IMPRESSION: No acute intracranial pathology. I have personally reviewed the examination and initial interpretation and I agree with the findings. DANETTE العلي MD Narrative 05/15/2025 6:56 AM CDT EXAM: CT HEAD W/O CONTRAST 05/14/2025 11:58 PM HISTORY: patient with pre-eclampsia w/ SF, blurry vision in the left eye. Rule out any intracranial pathology COMPARISON: None. TECHNIQUE: Using multidetector thin collimation helical acquisition technique, axial, coronal and sagittal CT images from the skull base to the vertex were obtained without intravenous contrast. Fish Dressing Machine Feeder (topogram) image(s) also obtained and reviewed. FINDINGS: No acute intracranial hemorrhage, mass effect, or midline shift. No acute loss of bruce-white matter differentiation in the cerebral hemispheres. Ventricles are proportionate to the cerebral sulci. Clear basal cisterns. The bony calvaria and the bones of the skull base are normal. The visualized portions of the paranasal sinuses and mastoid air cells are clear. Grossly normal orbits. Procedure Note Danette العلي MD - 05/15/2025 EXAM: CT HEAD W/O CONTRAST 05/14/2025 11:58 PM HISTORY: patient with pre-eclampsia w/ SF, blurry vision in the left eye. Rule out any intracranial pathology COMPARISON: None. TECHNIQUE: Using multidetector thin collimation helical acquisition technique, axial, coronal and sagittal CT images from the skull base to the vertex were obtained without intravenous contrast. Fish Dressing Machine Feeder (topogram) image(s) also obtained and reviewed. FINDINGS: No acute intracranial hemorrhage, mass effect, or midline shift. No acute loss of bruce-white matter differentiation in the cerebral hemispheres. Ventricles are proportionate to the cerebral sulci. Clear basal cisterns. The bony calvaria and the bones of the skull base are normal. The visualized portions of the paranasal sinuses and mastoid air cells are clear. Grossly normal orbits. IMPRESSION: No acute intracranial pathology. I have personally reviewed the examination and initial interpretation and I agree with the findings. DANETTE العلي MD us Balta Goyal MD IMG CT ORDERABLES Final R esult * (ABNORMAL) Glucose by meter (05/14/2025 8:51 PM CDT) GLUCOSE BY METER POCT 118(H) 70 - 99 mg/dL 05/14/2025 8:58 PM CDT UR LABORATORY POC Blood, Capillary BLOOD SPECIMEN / Unknown 05/14/2025 8:51 PM CDT 05/14/2025 8:58 PM CDT us Dhruv Harris MD LAB - BEAKER POCT Final Re sult UR LABORATORY POC [facility] [address] [place] [address], [address] * (ABNORMAL) Glucose by meter (05/14/2025 7:37 PM CDT) GLUCOSE BY METER POCT 111(H) 70 - 99 mg/dL 05/14/2025 7:49 PM CDT UR LABORATORY POC Blood, Capillary BLOOD SPECIMEN / Unknown 05/14/2025 7:37 PM CDT 05/14/2025 7:49 PM CDT Dhruv Harris MD LAB - BEAKER POCT Final Re sult UR LABORATORY POC [facility] [address] [place] [address], [address] * Group B strep PCR (05/14/2025 6:54 PM CDT) Group B Strep PCR Negative Negative 025 2:59 PM CDT [facility] Comment:Presumed negative fo r Streptococcus agalactiae (Group B Streptococcus) or the number of organisms may be below the limit of detection of the assay. Swab STRUCTURE OF RECTOVAGINAL SEPTUM / Unknown Non-blood Collection / Unknown 05/14/2025 6:54 PM CDT 05/14/2025 6:56 PM CDT Narrative [facility] - 05/15/2025 2:59 PM CDT The Cepheid Xpert GBS LB Assay, performed on the [employer], is a qualitative in vitro diagnostic test designed to detect Group B Streptococcus (GBS) DNA from enriched vaginal/rectal swab specimens, using fully automated, real-time polymerase chain reaction (PCR) with fluorogenic detection of the amplified DNA. Xpert GBS LB Assay testing is indicated as an aid in determining GBS colonization status in antepartum women. This assay does not diagnose or monitor treatment for GBS infections. The Cepheid Xpert GBS LB Assay is intended for use in hospital, reference or state laboratory settings. The device is not intended for uqbsi-ba-xoyu use. us Paco Segura MD LAB - MICRO GENERAL ORDERAB LES Final Result [facility] Inf. Diseases Diag. Lab [address] [facility], [address] [place] [address], [facility] * Adult Type and Screen (05/14/2025 5:06 PM CDT) ABO/RH(D) O POS 05/14/2025 5:01 PM CDT UR BLOOD BANK Antibody Screen Negative Negative 05/14/2025 5:01 PM CDT UR BLOOD BANK SPECIMEN EXPIRATION DATE 05/17/2025 11:59:00 PM CDT 05/14/2025 5:01 PM CDT UR BLOOD BANK Blood STRUCTURE OF RIGHT UPPER LIMB / Unknown Venipuncture / Unknown 05/14/2025 5:06 PM CDT 05/14/2025 5:20 PM CDT us Paco Segura MD LAB - BLOOD BANK TEST ORDER Final Result UR BLOOD BANK [facility] [place] [facility] [address] [facility], [address] [place] [address], [facility] * Treponema Abs w Reflex to RPR and Titer (05/14/2025 5:06 PM CDT) Treponema Antibody Total Nonreactive Nonreactive 05/15/2025 10:26 AM CDT SPECIALTY LABS Blood STRUCTURE OF RIGHT UPPER LIMB / Unknown Venipuncture / Unknown 05/14/2025 5:06 PM CDT 05/14/2025 5:20 PM CDT Paco Segura MD LAB - BLOOD ORDERABLES Julianna l Result SPECIALTY CORE/PROT/ENDO [facility] Specialty Core/Prot/Endo [address] [facility], [address] [place], [place] [address] SPECIALTY LABS Specialty Lab [address] [facility], [address] [address], [facility] * (ABNORMAL) Magnesium (05/14/2025 5:06 PM CDT) Pathologist [facility] Magnesium 3.8(H) 1.7 - 2.3 mg/dL 05/14/2025 5:44 PM CDT UR LABORATORY Blood STRUCTURE OF RIGHT UPPER LIMB / Unknown Venipuncture / Unknown 05/14/2025 5:06 PM CDT 05/14/2025 5:20 PM CDT Paco Segura MD LAB - BLOOD ORDERABLES Julianna l Result UR LABORATORY [facility] Lab [address] [facility] [address], [address] [place] [address], [facility] * (ABNORMAL) Comprehensive Metabolic Panel (05/14/2025 5:06 PM CDT) Sodium 134(L) 135 - 145 mmol/L 05/14/2025 5:44 PM CDT UR LABORATORY Potassium 4.2 3.4 - 5.3 mmol/L 05/14/2025 5:44 PM CDT UR LABORATORY Carbon Dioxide (CO2) 14(L) 22 - 29 mmol/L 05/14/2025 5:44 PM CDT UR LABORATORY Anion Gap 17(H) 7 - 15 mmol/L 05/14/2025 5:44 PM CDT UR LABORATORY Urea Nitrogen 9.3 6.0 - 20.0 mg/dL 05/14/2025 5:44 PM CDT UR LABORATORY Creatinine 0.61 0.51 - 0.95 mg/dL 05/14/2025 5:44 PM CDT UR LABORATORY GFR Estimate >90 >60 mL/min/1.7 3m2 05/14/2025 5:44 PM CDT UR LABORATORY Comment:eGFR calculated us2020 CKD-EPI equation. Calcium 8.5(L) 8.8 - 10.4 mg/dL 05/14/2025 5:44 PM CDT UR LABORATORY Chloride 103 98 - 107 mmol/L 05/14/2025 5:44 PM CDT UR LABORATORY Glucose 117(H) 70 - 99 mg/dL 05/14/2025 5:44 PM CDT UR LABORATORY Alkaline Phosphatase 88 40 - 150 U/L 05/14/2025 5:44 PM CDT UR LABORATORY AST 41 0 - 45 U/L 05/14/2025 5:44 PM CDT UR LABORATORY ALT 82(H) 0 - 50 U/L 05/14/2025 5:44 PM CDT UR LABORATORY Protein Total 7.2 6.4 - 8.3 g/dL 05/14/2025 5:44 PM CDT UR LABORATORY Albumin 3.5 3.5 - 5.2 g/dL 05/14/2025 5:44 PM CDT UR LABORATORY Bilirubin Total 0.2 <=1.2 mg/dL 05/14/2025 5:44 PM CDT UR LABORATORY Blood STRUCTURE OF RIGHT UPPER LIMB / Unknown Venipuncture / Unknown 05/14/2025 5:06 PM CDT 05/14/2025 5:20 PM CDT us Paco Segura MD LAB - BLOOD ORDERABLES Julianna padron Result UR LABORATORY [facility] Acute [facility] Lab [address] [place] [address], [facility] * (ABNORMAL) CBC with platelets (05/14/2025 5:06 PM CDT) WBC Count 13.10(H) 4.00 - 11.00 10e3/uL 05/14/2025 5:27 PM CDT UR LABORATORY RBC Count 4.05 3.80 - 5.20 10e6/uL 05/14/2025 5:27 PM CDT UR LABORATORY Hemoglobin 11.2(L) 11.7 - 15.7 g/dL 05/14/2025 5:27 PM CDT UR LABORATORY Hematocrit 33.0(L) 35.0 - 47.0 % 05/14/2025 5:27 PM CDT UR LABORATORY MCV 81.5 78.0 - 100.0 fL 05/14/2025 5:27 PM CDT UR LABORATORY MCH 27.7 26.5 - 33.0 pg 05/14/2025 5:27 PM CDT UR LABORATORY MCHC 33.9 31.5 - 36.5 g/dL 05/14/2025 5:27 PM CDT UR LABORATORY RDW 15.3(H) 10.0 - 15.0 % 05/14/2025 5:27 PM CDT UR LABORATORY Platelet Count 353 150 - 450 10e3/uL 05/14/2025 5:27 PM CDT UR LABORATORY Blood STRUCTURE OF RIGHT UPPER LIMB / Unknown Venipuncture / Unknown 05/14/2025 5:06 PM CDT 05/14/2025 5:20 PM CDT us Paco Segura MD LAB - BLOOD ORDERABLES Julianna padron Result UR LABORATORY [facility] Acute Care Lab [address] [place] [address] documented in this encounter Visit Diagnoses Diagnosis Chronic hypertension with superimposed preeclampsia- Primary Pre-eclampsia or eclampsia superimposed on pre-existing hypertension, complicating , childbirth, or the puerperium, unspecified as to episode of care Chronic hypertension with superimposed preeclampsia Pre-eclampsia or eclampsia superimposed on pre-existing hypertension, complicating , childbirth, or the puerperium, unspecified as to episode of care S/P bladder repair Other postprocedural status care and examination of lactating mother S/P section Other postprocedural status Tachycardia Tachycardia, unspecified documented in this encounter Admitting Diagnoses Diagnosis Chronic hypertension with superimposed preeclampsia Pre-eclampsia or eclampsia superimposed on pre-existing hypertension, complicating , childbirth, or the puerperium, unspecified as to episode of care documented in this encounter Administered Medications Inactive Administered Medications - up to 3 most recent administrations Medication Order MAR Action Action Date Dose Rate Site acetaminophen (TYLENOL) tablet 975 mg 975 mg, Oral, ONCE PRN, headaches, Starting on Tue05/14/25 at 1803, For 1 dose, Maximum acetaminophen dose from all sources = 75 mg/kg/day not to exceed 4 grams/day. $Given 05/14/2025 6:36 PM CDT 975 mg acetaminophen (TYLENOL) tablet 975 mg 975 mg, Oral, ONCE, On Tue05/15/25 at 0200, For 1 dose, Maximum acetaminophen dose from all sources = 75 mg/kg/day not to exceed 4 grams/day., Pre-procedure $Given 05/15/2025 1:45 AM CDT 975 mg acetaminophen (TYLENOL) tablet 975 mg 975 mg, Oral, EVERY 6 HOURS, First dose on Tue05/15/25 at 1000, Start 6 hours after pre-op dose (if given) Maximum acetaminophen dose from all sources = 75 mg/kg/day not to exceed 4 grams/day. $Given 05/18/2025 12:18 PM CDT 975 mg $Given 05/18/2025 6:33 AM CDT 975 mg $Given 05/17/2025 11:52 PM CDT 975 mg acetaminophen (TYLENOL) tablet 975 mg 975 mg, Oral, ONCE, On Tue05/15/25 at 0700, For 1 dose, Maximum acetaminophen dose from all sources = 75 mg/kg/day not to exceed 4 grams/day., PACU $Given 05/15/2025 8:31 AM CDT 975 mg carboprost (HEMABATE) injection 250 mcg 250 mcg, Intramuscular, EVERY 15 MIN PRN, other, ONLY for uterine atony with significant bleeding POST-DELIVERY, Starting on Tue05/15/25 at 0947, Notify provider IF uterine atony and clarify with provider medication preference. Administer only if directed by provider. Give with caution in patients with asthma, active pulmonary, hepatic, renal or cardiovascular disease. citalopram (celeXA) tablet 10 mg 10 mg, Oral, DAILY, First dose on Tue05/14/25 at 1730 $Given 05/18/2025 8:22 AM CDT 10 mg $Given 05/17/2025 8:21 AM CDT 10 mg $Given 05/16/2025 8:35 AM CDT 10 mg enoxaparin ANTICOAGULANT (LOVENOX) injection 40 mg 40 mg, Subcutaneous, EVERY 12 HOURS, First dose on Tue05/15/25 at 1800, Wait GREATER than or EQUAL to 12 hours after the neuraxial procedure AND GREATER than or EQUAL to four hours after the epidural catheter removal before initiating or restarting LMWH thromboprophylaxis (enoxaparin). Surgery start time: 0230 $Given 05/18/2025 6:33 AM CDT 40 mg $Given 05/17/2025 5:55 PM CDT 40 mg $Given 05/17/2025 6:32 AM CDT 40 mg HYDROmorphone (DILAUDID) injection 0.4 mg 0.4 mg, Intravenous, EVERY 10 MIN PRN, severe pain, Starting on Tue05/15/25 at 0648, Use FentaNYL (SUBLIMAZE) first if ordered. Maximum total cumulative dose NOT to exceed 2 mg. DO NOT revert back to fentanyl (SUBLIMAZE) after administering HYDROmorphone (DILAUDID). Notify Provider to assess for uncontrolled pain or analgesic side effects., PACU $Given 05/15/2025 7:56 AM CDT 0.4 mg $Given 05/15/2025 6:49 AM CDT 0.4 mg insulin NPH injection 33 Units 33 Units, Subcutaneous, AT BEDTIME, First dose on Tue05/14/25 at 2200, For 1 dose $Given 05/15/2025 12:13 AM CDT 17 Units labetalol (NORMODYNE) half-tab 50 mg 50 mg, Oral, 2 TIMES DAILY, First dose (after last modification) on Tue05/16/25 at 0800, Hold if SBP is < 120, DBP is < 80, or pulse is < 60 $Given 05/16/2025 9:43 PM CDT 50 mg $Given 05/16/2025 12:03 PM CDT 50 mg labetalol (NORMODYNE) tablet 100 mg 100 mg, Oral, 3 TIMES DAILY, First dose on Tue05/14/25 at 2000 $Given 05/14/2025 5:25 PM CDT 100 mg labetalol (NORMODYNE) tablet 100 mg 100 mg, Oral, 3 TIMES DAILY, First dose on Tue05/15/25 at 1000 $Given 05/15/2025 6:01 PM CDT 100 mg $Given 05/15/2025 10:34 AM CDT 100 mg lactated ringers BOLUS 500 mL Intravenous, 500 mL, ONCE, at 1,000 mL/hr, Administer over 30 Minutes, On Tue05/15/25 at 0200, For 1 dose, Initiate within 60 minutes of surgical procedure, Pre-procedure $New Bag 05/15/2025 2:00 AM CDT 500 mLs 1000 m L/hr lactated ringers infusion at 10-125 mL/hr, Intravenous, CONTINUOUS, Titrate lactated ringers rate to obtain total IV intake of no more than 125 mL/hour, Starting on Tue05/14/25 at 1730, Until 05/18/25 at 1731 $New Bag 05/15/2025 11:09 PM CDT 50 mL/hr 50 mL/hr Restarted 05/15/2025 8:38 AM CDT 50 mL/hr 50 mL/hr $New Bag 05/15/2025 12:27 AM CDT 75 mL/hr 75 mL/hr lamoTRIgine (LaMICtal) tablet 200 mg 200 mg, Oral, DAILY, First dose (after last modification) on Tue05/15/25 at 0800 $Given 05/18/2025 8:22 AM CDT 200 mg $Given 05/17/2025 8:20 AM CDT 200 mg $Given 05/16/2025 12:02 PM CDT 200 mg lamoTRIgine (LaMICtal) tablet 200 mg 200 mg, Oral, DAILY, First dose on Tue05/15/25 at 1000 $Given 05/15/2025 11:05 AM CDT 200 mg loperamide (IMODIUM) capsule 4 mg 4 mg, Oral, ONCE PRN, other, Give with first dose of carboprost (HEMABATE), Starting on Tue05/15/25 at 0947, For 1 dose, May give only after delivery. magnesium sulfate 40 mg/mL continuous infusion 2 g/hr (50 mL/hr), Intravenous, CONTINUOUS, Starting on Tue05/14/25 at 1730, For 1 day 11 hours, STOP infusion and then notify provider IF signs of magnesium toxicity appear. Must run concurrently with maintenance IV fluid. Insert at closest possible Y-site in main-line IV. Use second closest port when oxytocin is infusing. Discontinue at 24 hours post-delivery OR if started , discontinue 24 hours after initiation. Total IV fluid intake should not exceed 125 mL/hr. $New Bag 05/15/2025 7:40 AM CDT 2 g/hr 50 mL/hr Rate/Dose Verify 05/15/2025 7:35 AM CDT 2 g/hr 50 mL/h r Rate/Dose Verify 05/15/2025 6:24 AM CDT 2 g/hr 50 mL/h r metoclopramide (REGLAN) injection 10 mg 10 mg, Intravenous, Administer over 2 Minutes, EVERY 6 HOURS PRN, nausea/vomiting - 1st line, Starting on Tue05/15/25 at 0947, This is Step 1 of OB nausea and vomiting management. Use IV if not tolerating oral therapy. If nausea is not resolved in 30 minutes, go to Step 2 (Zofran). Avoid use if patient has full bowel obstruction or perforation. metoclopramide (REGLAN) tablet 10 mg 10 mg, Oral, EVERY 6 HOURS PRN, nausea/vomiting - 1st line, Starting on Tue05/15/25 at 0947, This is Step 1 of OB nausea and vomiting management. Preferred route. If nausea is not resolved in 30 minutes, go to Step 2 (Zofran) Avoid use if patient has full bowel obstruction or perforation. midazolam (VERSED) injection 2 mg 2 mg, Intravenous, EVERY 5 MIN PRN, seizures, If unresponsive to magnesium dosing., Starting on Tue05/14/25 at 1653, For 5 doses, Give as directed by provider. This drug may cause significant respiratory depression. Monitor respiratory status and vital signs carefully for 1 hour after each dose. $Given 05/15/2025 3:31 AM CDT 2 mg misoprostol (CYTOTEC) tablet 400 mcg 400 mcg, Oral, GIVE ONCE PRN AND REPEAT ACCORDING TO INSTRUCTIONS, post- hemorrhage, Starting on Tue05/15/25 at 0947, Administer only if directed by provider. Max administrations: 4 doses misoprostol (CYTOTEC) tablet 800 mcg 800 mcg, Rectal, GIVE ONCE PRN AND REPEAT ACCORDING TO INSTRUCTIONS, post- hemorrhage, Starting on Tue05/15/25 at 0947, Give rectally if unable to take oral without complications. Administer only if directed by provider. Max administrations: 4 doses. naloxone (NARCAN) injection 0.2 mg 0.2 mg, Intravenous, EVERY 2 MIN PRN, opioid reversal, Starting on Tue05/15/25 at 0654, Administer intravenous route when available and notify provider when administered. For unintended sedation or respiratory depression if all of the below criteria are met: ~ respiratory rate LESS than or EQUAL to 8. ~SaO2 less than 92% and or/end-tidal CO2 is greater than 50. ~ the patient is receiving an opioid, has unintended sedations assessed as RASS (-3), and is currently not on mechanical ventilation. RASS scale moderate (-3) is movement or eye opening to voice but no eye contact. Patient Monitoring Once the patient has demonstrated a response to the naloxone, continue to monitor respiratory rate, depth, oxygen saturation and end-tidal CO2 (if available) every 15 minutes x 2, then every 30 minutes x 2, then every 1 hour x 1 after each naloxone dose. Consider transfer to ICU if patient respiratory parameters have not improved after 4 naloxone doses. naloxone (NARCAN) injection 0.2 mg 0.2 mg, Intramuscular, EVERY 2 MIN PRN, opioid reversal, Starting on Tue05/15/25 at 0654, Administer intramuscular if an intravenous route is not available and notify provider when administered. For unintended sedation or respiratory depression if all of the below criteria are met: ~ respiratory rate LESS than or EQUAL to 8. ~SaO2 less than 92% and or/end-tidal CO2 is greater than 50. ~ the patient is receiving an opioid, has unintended sedations assessed as RASS (-3), and is currently not on mechanical ventilation. RASS scale moderate (-3) is movement or eye opening to voice but no eye contact. Patient Monitoring Once the patient has demonstrated a response to the naloxone, continue to monitor respiratory rate, depth, oxygen saturation and end-tidal CO2 (if available) every 15 minutes x 2, then every 30 minutes x 2, then every 1 hour x 1 after each naloxone dose. Consider transfer to ICU if patient respiratory parameters have not improved after 4 naloxone doses. naloxone (NARCAN) injection 0.4 mg 0.4 mg, Intravenous, EVERY 2 MIN PRN, opioid reversal, Starting on Tue05/15/25 at 0654, Administer intravenous route when available and notify provider when administered. For unintended sedation or respiratory depression if all of the below criteria are met: ~ respiratory rate LESS than or EQUAL to 8. ~ SaO2 less than 92% and or/end-tidal CO2 is greater than 50. ~ the patient is receiving an opioid, has unintended sedation assessed as RASS (-4) or (-5) and patient is currently not on mechanical ventilation. RASS scale (-4) is deep sedation with no response to voice but movement or eye opening to physical stimulation. RASS scale (-5) is unarousable. Patient Monitoring Once the patient has demonstrated a response to the naloxone, continue to monitor respiratory rate, depth, oxygen saturation and end-tidal CO2 (if available) every 15 minutes x 2, then every 30 minutes x 2, then every 1 hour x 1 after each naloxone dose. Consider transfer to ICU if patient respiratory parameters have not improved after 4 naloxone doses. naloxone (NARCAN) injection 0.4 mg 0.4 mg, Intramuscular, EVERY 2 MIN PRN, opioid reversal, Starting on Tue05/15/25 at 0654, Administer intramuscular if an intravenous route is not available and notify provider when administered. For unintended sedation or respiratory depression if all of the below criteria are met: ~ respiratory rate LESS than or EQUAL to 8. ~ SaO2 less than 92% and or/end-tidal CO2 is greater than 50. ~ the patient is receiving an opioid, has unintended sedation assessed as RASS (-4) or (-5) and patient is currently not on mechanical ventilation. RASS scale (-4) is deep sedation with no response to voice but movement or eye opening to physical stimulation. RASS scale (-5) is unarousable. Patient Monitoring Once the patient has demonstrated a response to the naloxone, continue to monitor respiratory rate, depth, oxygen saturation and end-tidal CO2 (if available) every 15 minutes x 2, then every 30 minutes x 2, then every 1 hour x 1 after each naloxone dose. Consider transfer to ICU if patient respiratory parameters have not improved after 4 naloxone doses. ondansetron (ZOFRAN ODT) ODT tab 4 mg 4 mg, Oral, EVERY 6 HOURS PRN, nausea/vomiting - 2nd line, Starting on Tue05/15/25 at 0947, This is Step 2 of OB nausea and vomiting management. Preferred route. Give If nausea not resolved in 30 minutes after giving metoclopramide (REGLAN). If nausea is not resolved in 15 minutes, go to Step 3 (Compazine). With dry hands, peel back foil backing and gently remove tablet. Do not push oral disintegrating tablet through foil backing. Administer immediately on tongue and oral disintegrating tablet dissolves in seconds, then swallow with saliva. Liquid not required. ondansetron (ZOFRAN) injection 4 mg 4 mg, Intravenous, EVERY 6 HOURS PRN, nausea/vomiting - 2nd line, Administer over 2-5 Minutes, Starting on Tue05/15/25 at 0947, This is Step 2 of OB nausea and vomiting management. Use IV if not tolerating oral therapy. Give if nausea not resolved 30 minutes after giving metoclopramide (REGLAN). If nausea is not resolved in 15 minutes, go to Step 3 (Compazine). oxyCODONE (ROXICODONE) tablet 5 mg 5 mg, Oral, EVERY 4 HOURS PRN, other, moderate to severe breakthrough pain. Hold dose for analgesic side effects., Starting on Tue05/15/25 at 0947, Notify provider to assess for uncontrolled pain or analgesic side effects. Hold while on [facility] or with regular IV opioid dosing. Maximum total is 60 mg in 24 hours. $Given 05/18/2025 12:18 PM CDT 5 mg $Given 05/18/2025 6:33 AM CDT 5 mg $Given 05/17/2025 11:52 PM CDT 5 mg oxytocin (PITOCIN) 30 units in 500 mL 0.9% NaCl infusion 340 mL/hr, Intravenous, CONTINUOUS PRN, for hemorrhage (PPH) UNTIL bleeding subsided., Starting on Tue05/15/25 at 0130, When bleeding subsides decrease rate to 100 mL/hr. Notify provider immediately when infusion begun. Oxytocin is first line medication for PPH., Pre-procedure Rate/Dose Verify 05/15/2025 7:37 AM CDT 100 mL/hr 100 mL/hr Rate/Dose Verify 05/15/2025 6:25 AM CDT 100 mL/hr 100 mL/ hr Rate/Dose Change 05/15/2025 5:06 AM CDT 100 mL/hr 100 mL/ hr Patient may continue current oral medications CONTINUOUS PRN, Starting on Tue05/15/25 at 1702, Until 05/18/25 at 1731 prochlorperazine (COMPAZINE) injection 10 mg 10 mg, Intravenous, EVERY 6 HOURS PRN, nausea/vomiting - 3rd line, Administer over 2 Minutes, Starting on Tue05/15/25 at 0947, This is Step 3 of OB nausea and vomiting management. Use IV if not tolerating oral therapy. Give if nausea not resolved 15 minutes after giving ondansetron (ZOFRAN). If nausea is not resolved in 30 minutes, notify provider. prochlorperazine (COMPAZINE) tablet 10 mg 10 mg, Oral, EVERY 6 HOURS PRN, nausea/vomiting - 3rd line, Starting on Tue05/15/25 at 0947, This is Step 3 of OB nausea and vomiting management. Preferred route. Give if nausea not resolved 15 minutes after giving ondansetron (ZOFRAN). If nausea is not resolved in 30 minutes, notify provider. senna-docusate (SENOKOT-S/PERICOLACE) 8.6-50 MG per tablet 1 tablet 1 tablet, Oral, 2 TIMES DAILY, First dose on Tue05/15/25 at 1000, If no bowel movement in 24 hours, increase to 2 tablets PO. Hold for loose stools. Preferred agent for constipation related to opioids. Hold for loose stools. senna-docusate (SENOKOT-S/PERICOLACE) 8.6-50 MG per tablet 2 tablet 2 tablet, Oral, 2 TIMES DAILY, First dose on Tue05/15/25 at 1000, Hold for loose stools. Preferred agent for constipation related to opioids. Hold for loose stools. $Given 05/17/2025 8:20 AM CDT 2 tablets $Given 05/16/2025 9:43 PM CDT 2 tablets $Given 05/16/2025 8:35 AM CDT 2 tablets simethicone (MYLICON) chewable tablet 80 mg 80 mg, Oral, EVERY 6 HOURS PRN, other, abdominal gas, Starting on Tue05/15/25 at 0947, Chew. $Given 05/16/2025 3:46 PM CDT 80 mg $Given 05/16/2025 2:30 AM CDT 80 mg $Given 05/15/2025 7:49 PM CDT 80 mg sodium chloride (PF) 0.9% PF flush 3 mL 3 mL, Intracatheter, EVERY 8 HOURS SCHEDULED, First dose on Tue05/14/25 at 2200, to lock peripheral IV dormant line $Given 05/17/2025 5:56 PM CDT 3 mLs sodium chloride (PF) 0.9% PF flush 3 mL 3 mL, Intracatheter, EVERY 8 HOURS SCHEDULED, First dose on Tue05/15/25 at 1400, to lock peripheral IV dormant line $Given 05/17/2025 6:32 AM CDT 3 mLs $Given 05/16/2025 9:47 PM CDT 3 mLs $Given 05/16/2025 3:46 PM CDT 3 mLs sodium chloride (PF) 0.9% PF flush 3 mL 3 mL, Intracatheter, EVERY 1 MIN PRN, line flush, other, to ensure patency or to lock dormant line, Starting on Tue05/15/25 at 0947 $Given 05/17/2025 8:25 AM CDT 3 mLs sodium citrate-citric acid (BICITRA) solution 30 mL 30 mL, Oral, PRE-OP/PRE-PROCEDURE, Starting on Tue05/15/25 at 0130, For 1 dose, For gastric pH neutralization. GIVE WITHIN 45 minutes PRIOR TO SURGICAL PROCEDURE., Pre-procedure $Given 05/15/2025 2:02 AM CDT 30 mLs documented in this encounter Active and Recently Administered Medications Times are shown in CDT. Scheduled Medication Order 05/16/2025 05/17/2025 05/18/2025 acetaminophen (TYLENOL) tablet 975 mg 975 mg, Oral, EVERY 6 HOURS, First dose on Tue05/15/25 at 1000, Start 6 hours after pre-op dose (if given) Maximum acetaminophen dose from all sources = 75 mg/kg/day not to exceed 4 grams/day. 0304 ($Given - Provider: Brandi Robertson RN)0835 ($Given - Provider: Mary Verdugo RN)1513 ($Given - Provider: Mary Verdugo RN)2143 ($Given - Provider: Brandi Robertson RN) 0538 ($Given - Provider: Brandi Robertson RN)1156 ($Given - Provider: Gerri Goodman RN)1755 ($Given - Provider: Gerri Goodman RN)2352 ($Given - Provider: Chey Starkey RN) 0633 ($Given - Provider: Chey Starkey RN)1218 ($Given - Provider: Gerri Goodman RN)1730 (Canceled Entry - Provider: Orders Generic Provider - Comment: Automatically canceled at discontinue of medication order) citalopram (celeXA) tablet 10 mg 10 mg, Oral, DAILY, First dose on Tue05/14/25 at 1730 0835 ($Given - Provider: Mary Verdugo RN) 0821 ($Given - Provider: Gerri Goodman RN) 0822 ($Given - Provider: Gladys Moreno RN) enoxaparin ANTICOAGULANT (LOVENOX) injection 40 mg 40 mg, Subcutaneous, EVERY 12 HOURS, First dose on Tue05/15/25 at 1800, Wait GREATER than or EQUAL to 12 hours after the neuraxial procedure AND GREATER than or EQUAL to four hours after the epidural catheter removal before initiating or restarting LMWH thromboprophylaxis (enoxaparin). Surgery start time: 0230 0620 ($Given - Provider: Brandi Robertson RN)1800 ($Given - Provider: Yamile Rojas RN) 0632 ($Given - Provider: Brandi Robertson RN)1755 ($Given - Provider: Gerri Goodman RN) 0633 ($Given - Provider: Chey Starkey RN) labetalol (NORMODYNE) half-tab 50 mg (CANCELED) 50 mg, Oral, 2 TIMES DAILY, First dose (after last modification) on Ermelinda 05/16/25 at 0800, Hold if SBP is < 120, DBP is < 80, or pulse is < 60 1203 ($Given - Provider: Mary Verdugo RN - Comment: Okay to give per Dr Rodrigues even though diastolic less than 80)2143 ($Given - Provider: Brandi Robertson RN - Comment: pt from NICU and was pumping afterok with MD to administer HR;104) 1012 (Not Given - Provider: Gerri Goodman RN - Reason: Med discontinued by Provider) lamoTRIgine (LaMICtal) tablet 200 mg 200 mg, Oral, DAILY, First dose (after last modification) on Tue05/15/25 at 0800 1202 ($Given - Provider: Mary Verdugo RN) 0820 ($Given - Provider: Gerri Goodman RN) 0822 ($Given - Provider: Gladys Moreno, ZEN) lidocaine (XYLOCAINE) 2 % external gel Urethral, ONCE, On Tue05/17/25 at 1030, For 1 dose 1030 (Canceled Entry - Provider: Orders Generic Provider - Comment: Automatically canceled at discontinue of medication order) methylene blue (PROVAYBLUE) 5 mg/mL injection 66.5 mg 66.5 mg (rounded from 66.25 mg = 25 mg/m2 2.65 m2), Bladder Instillation, ONCE, On Tue05/15/25 at 0400, For 1 dose, Do not mix with sodium chloride 0.9% solution. senna-docusate (SENOKOT-S/PERICOLACE) 8.6-50 MG per tablet 1 tablet(Linked Group 1) 1 tablet, Oral, 2 TIMES DAILY, First dose on Tue05/15/25 at 1000, If no bowel movement in 24 hours, increase to 2 tablets PO. Hold for loose stools. Preferred agent for constipation related to opioids. Hold for loose stools. 0835 (See Alternative - Provider: Mary Verdugo RN)2143 (See Alternative - Provider: Brandi Robertson, ZEN) 0820 (See Alternative - Provider: Gerri Goodman RN)2000 (Canceled Entry - Provider: Orders Generic Provider - Comment: Automatically canceled at discontinue of medication order) 0824 (See Alternative - Provider: Gladys Moreno RN) senna-docusate (SENOKOT-S/PERICOLACE) 8.6-50 MG per tablet 2 tablet(Linked Group 1) 2 tablet, Oral, 2 TIMES DAILY, First dose on Tue05/15/25 at 1000, Hold for loose stools. Preferred agent for constipation related to opioids. Hold for loose stools. 0835 ($Given - Provider: Mary Verdugo RN)2143 ($Given - Provider: Brandi Robertson RN) 0820 ($Given - Provider: Gerri Goodman RN)2000 (Canceled Entry - Provider: Orders Generic Provider - Comment: Automatically canceled at discontinue of medication order) 0824 (Not Given - Provider: Gladys Moreno RN - Reason: Patient/family refused - Comment: had 2 soft bms yesterday) sodium chloride (PF) 0.9% PF flush 3 mL 3 mL, Intracatheter, EVERY 8 HOURS SCHEDULED, First dose on Tue05/14/25 at 2200, to lock peripheral IV dormant line 0625 (Canceled Entry - Provider: Brandi Robertson RN)1548 (Canceled Entry - Provider: Yamile Rojas, ZEN)2147 (Canceled Entry - Provider: Brandi Robertson RN) 0637 (Canceled Entry - Provider: Brandi Robertson RN)1756 ($Given - Provider: Gerri Godoman RN)2200 (Canceled Entry - Provider: Orders Generic Provider - Comment: Automatically canceled at discontinue of medication order) 0600 (Canceled Entry - Provider: Orders Generic Provider - Comment: Automatically canceled at discontinue of medication order)1400 (Canceled Entry - Provider: Orders Generic Provider - Comment: Automatically canceled at discontinue of medication order) sodium chloride (PF) 0.9% PF flush 3 mL 3 mL, Intracatheter, EVERY 8 HOURS SCHEDULED, First dose on Tue05/15/25 at 1400, to lock peripheral IV dormant line 0620 ($Given - Provider: Brandi Robertson RN)1546 ($Given - Provider: Yamile Rojas RN)2147 ($Given - Provider: Brandi Robertson, ZEN) 0632 ($Given - Provider: Brandi Robertson, ZEN)1821 (Not Given - Provider: Gerri Goodman, ZEN - Reason: Other)2200 (Canceled Entry - Provider: Orders Generic Provider - Comment: Automatically canceled at discontinue of medication order) 0600 (Canceled Entry - Provider: Orders Generic Provider - Comment: Automatically canceled at discontinue of medication order)1400 (Canceled Entry - Provider: Orders Generic Provider - Comment: Automatically canceled at discontinue of medication order) Continuous Medication Order 05/16/2025 05/17/2025 05/18/2025 dextrose 5% in lactated ringers infusion at 125 mL/hr, Intravenous, CONTINUOUS, Subsequent IV at nurse's discretion. DC IV when tolerating fluids or at nurse's discretion & saline lock., Starting on Tue05/15/25 at 1000, Until 05/18/25 at 1731 lactated ringers infusion at 10-125 mL/hr, Intravenous, CONTINUOUS, Titrate lactated ringers rate to obtain total IV intake of no more than 125 mL/hour, Starting on Tue05/14/25 at 1730, Until Tue05/18/25 at 1731 0328 (Stopped - Provider: Brandi Robertson, RN) PRN Medication Order 05/16/2025 05/17/2025 05/18/2025 bisacodyl (DULCOLAX) suppository 10 mg 10 mg, Rectal, DAILY PRN, constipation, Starting on Tue05/17/25 at 0000, Use IF milk of magnesium not effective. Start POD 2 Hold for loose stools. calcium gluconate 10 % injection 1 g 1 g, Intravenous, ONCE PRN, magnesium sulfate toxicity , Administer over 3-5 Minutes, Starting on Tue05/14/25 at 1653, For 1 dose, IF signs of magnesium toxicity appear, STOP magnesium infusion, administer calcium gluconate, and notify provider. Do not infuse in the same IV line as phosphate-containing solutions. carboprost (HEMABATE) injection 250 mcg(Linked Group 2) 250 mcg, Intramuscular, EVERY 15 MIN PRN, other, ONLY for uterine atony with significant bleeding POST-DELIVERY, Starting on Tue05/15/25 at 0947, Notify provider IF uterine atony and clarify with provider medication preference. Administer only if directed by provider. Give with caution in patients with asthma, active pulmonary, hepatic, renal or cardiovascular disease. hydrALAZINE (APRESOLINE) injection 10 mg 10 mg, Intravenous, EVERY 20 MIN PRN, other, Acute Onset Severe Hypertension Medication Algorithm, Administer over 2 Minutes, Starting on Tue05/14/25 at 1653, ~ IF SBP GREATER than or EQUAL to 160 or DBP GREATER than or EQUAL to 110 at 10 minutes following 3rd dose of labetalol, give IV hydralazine 10 mg over 2 minutes AND NOTIFY PROVIDER ~ IF SBP GREATER than or EQUAL to 160 or DBP GREATER than or EQUAL to 110 at 20 minutes following 1st hydralazine dose, notify provider. ~ DO NOT give if history of mitral valvular rheumatic heart disease or coronary heart disease. hydrocortisone (Perianal) (ANUSOL-HC) 2.5 % cream Rectal, 3 TIMES DAILY PRN, hemorrhoids, Starting on Tue05/15/25 at 0947, Apply to hemorrhoids. Send only if nurse requests. labetalol (NORMODYNE/TRANDATE) injection 20-80 mg 20-80 mg, Intravenous, EVERY 10 MIN PRN, other, Acute Onset Severe Hypertension Medication Algorithm, Administer over 2 Minutes, Starting on Tue05/14/25 at 1653, ~ Begin administration if criteria for acute onset hypertension met. ~ Administer IV labetalol 20 mg over 2 minutes for first dose. ~ IF SBP GREATER than or EQUAL to 160 or DBP GREATER than or EQUAL to 110 at 10 minutes following 1st dose of labetalol, give 2nd dose of IV labetalol 40 mg over 2 minutes ~ IF SBP GREATER than or EQUAL to 160 or DBP GREATER than or EQUAL to 110 at 10 minutes following 2nd dose of labetalol, give 3rd dose of IV labetalol 80 mg over 2 minutes ~ IF SBP GREATER than or EQUAL to 160 or DBP GREATER than or EQUAL to 110 at 10 minutes following 3rd dose of labetalol, progress to IV hydralazine 10 mg and notify provider. ~ DO NOT give if history of asthma or congestive heart failure. HOLD Labetalol IF maternal HR LESS than 60 AND notify provider for further orders ~ MAX recommended daily dose: 300 mg/24hours. lidocaine (LMX4) cream Topical, EVERY 1 HOUR PRN, pain, with VAD insertion, Starting on Tue05/15/25 at 0947, Apply at least 30 minutes prior to VAD insertion in divided doses as needed for size of site for insertion. MAX Dose: 2.5 g ( of 5 g tube) Do NOT give if patient has a history of allergy to any local anesthetic or any sherie product. Do NOT use both lidocaine intradermal/subcutaneous injection and the lidocaine cream on the same site. lidocaine 1 % 0.1-1 mL 0.1-1 mL, Other, EVERY 1 HOUR PRN, mild pain with VAD insertion, Starting on Tue05/15/25 at 0947, MAX dose 1 mL subcutaneous OR intradermal along the side of the vein in divided doses as needed for VAD insertion. Do NOT give if patient has a history of allergy to any local anesthetic or any sherie product. Do NOT use both lidocaine intradermal/subcutaneous injection and the lidocaine cream on the same site. loperamide (IMODIUM) capsule 2 mg 2 mg, Oral, EVERY 2 HOURS PRN, other, after each loose stool, Starting on Tue05/15/25 at 0947, May give only after delivery. For diarrhea occurring after carboprost (HEMABATE) administration ONLY. Maximum 16 mg/day. Do NOT give stool softeners or laxatives until diarrhea is resolved. loperamide (IMODIUM) capsule 4 mg(Linked Group 2) 4 mg, Oral, ONCE PRN, other, Give with first dose of carboprost (HEMABATE), Starting on Tue05/15/25 at 0947, For 1 dose, May give only after delivery. magnesium hydroxide (MILK OF MAGNESIA) suspension 30 mL 30 mL, Oral, DAILY PRN, constipation, Starting on Tue05/15/25 at 0947, Shake well. Hold for loose stools. magnesium sulfate 2 g dose for SEIZURE TREATMENT Intravenous, 2 g, ONCE PRN, at 600 mL/hr, Administer over 5 Minutes, seizures, Loading dose for ACTIVE MANAGEMENT OF SEIZURES, give If ON magnesium sulfate infusion, Starting on Tue05/14/25 at 1653, For 1 dose, Infuse over 5 minutes per infusion pump. Must run concurrently with maintenance IV fluid. Insert at closest possible Y-site in main-line IV. Use second closest port when oxytocin is infusing. Nurse to administer dose from maintenance infusion bag. magnesium sulfate 4 g dose for SEIZURE TREATMENT Intravenous, 4 g, ONCE PRN, at 300 mL/hr, Administer over 20 Minutes, seizures, Loading dose for ACTIVE MANAGEMENT OF SEIZURES, give if NOT on magnesium sulfate infusion., Starting on Tue05/14/25 at 1653, For 1 dose, Infuse over 20 minutes per infusion pump. Must run concurrently with maintenance IV fluid. Insert at closest possible Y-site in main-line IV. Use second closest port when oxytocin is infusing. Nurse to administer dose from maintenance infusion bag. methylergonovine (METHERGINE) injection 200 mcg 200 mcg, Intramuscular, EVERY 2 HOURS PRN, ONLY for uterine atony with significant bleeding POST-DELIVERY, Starting on Tue05/15/25 at 0947, Notify provider IF uterine atony and clarify with provider medication preference. Administer only if directed by provider. Contraindicated if Blood Pressure greater than 140/90, preeclampsia, or hypertension. metoclopramide (REGLAN) injection 10 mg(Linked Group 3) 10 mg, Intravenous, Administer over 2 Minutes, EVERY 6 HOURS PRN, nausea/vomiting - 1st line, Starting on Tue05/15/25 at 0947, This is Step 1 of OB nausea and vomiting management. Use IV if not tolerating oral therapy. If nausea is not resolved in 30 minutes, go to Step 2 (Zofran). Avoid use if patient has full bowel obstruction or perforation. metoclopramide (REGLAN) tablet 10 mg(Linked Group 3) 10 mg, Oral, EVERY 6 HOURS PRN, nausea/vomiting - 1st line, Starting on Tue05/15/25 at 0947, This is Step 1 of OB nausea and vomiting management. Preferred route. If nausea is not resolved in 30 minutes, go to Step 2 (Zofran) Avoid use if patient has full bowel obstruction or perforation. midazolam (VERSED) injection 2 mg 2 mg, Intravenous, EVERY 5 MIN PRN, seizures, If unresponsive to magnesium dosing., Starting on Tue05/14/25 at 1653, For 5 doses, Give as directed by provider. This drug may cause significant respiratory depression. Monitor respiratory status and vital signs carefully for 1 hour after each dose. misoprostol (CYTOTEC) tablet 400 mcg(Linked Group 4) 400 mcg, Oral, GIVE ONCE PRN AND REPEAT ACCORDING TO INSTRUCTIONS, post- hemorrhage, Starting on Tue05/15/25 at 0947, Administer only if directed by provider. Max administrations: 4 doses misoprostol (CYTOTEC) tablet 800 mcg(Linked Group 4) 800 mcg, Rectal, GIVE ONCE PRN AND REPEAT ACCORDING TO INSTRUCTIONS, post- hemorrhage, Starting on Tue05/15/25 at 0947, Give rectally if unable to take oral without complications. Administer only if directed by provider. Max administrations: 4 doses. naloxone (NARCAN) injection 0.2 mg(Linked Group 5) 0.2 mg, Intravenous, EVERY 2 MIN PRN, opioid reversal, Starting on Tue05/15/25 at 0654, Administer intravenous route when available and notify provider when administered. For unintended sedation or respiratory depression if all of the below criteria are met: ~ respiratory rate LESS than or EQUAL to 8. ~SaO2 less than 92% and or/end-tidal CO2 is greater than 50. ~ the patient is receiving an opioid, has unintended sedations assessed as RASS (-3), and is currently not on mechanical ventilation. RASS scale moderate (-3) is movement or eye opening to voice but no eye contact. Patient Monitoring Once the patient has demonstrated a response to the naloxone, continue to monitor respiratory rate, depth, oxygen saturation and end-tidal CO2 (if available) every 15 minutes x 2, then every 30 minutes x 2, then every 1 hour x 1 after each naloxone dose. Consider transfer to ICU if patient respiratory parameters have not improved after 4 naloxone doses. naloxone (NARCAN) injection 0.2 mg(Linked Group 5) 0.2 mg, Intramuscular, EVERY 2 MIN PRN, opioid reversal, Starting on Tue05/15/25 at 0654, Administer intramuscular if an intravenous route is not available and notify provider when administered. For unintended sedation or respiratory depression if all of the below criteria are met: ~ respiratory rate LESS than or EQUAL to 8. ~SaO2 less than 92% and or/end-tidal CO2 is greater than 50. ~ the patient is receiving an opioid, has unintended sedations assessed as RASS (-3), and is currently not on mechanical ventilation. RASS scale moderate (-3) is movement or eye opening to voice but no eye contact. Patient Monitoring Once the patient has demonstrated a response to the naloxone, continue to monitor respiratory rate, depth, oxygen saturation and end-tidal CO2 (if available) every 15 minutes x 2, then every 30 minutes x 2, then every 1 hour x 1 after each naloxone dose. Consider transfer to ICU if patient respiratory parameters have not improved after 4 naloxone doses. naloxone (NARCAN) injection 0.4 mg(Linked Group 5) 0.4 mg, Intravenous, EVERY 2 MIN PRN, opioid reversal, Starting on Tue05/15/25 at 0654, Administer intravenous route when available and notify provider when administered. For unintended sedation or respiratory depression if all of the below criteria are met: ~ respiratory rate LESS than or EQUAL to 8. ~ SaO2 less than 92% and or/end-tidal CO2 is greater than 50. ~ the patient is receiving an opioid, has unintended sedation assessed as RASS (-4) or (-5) and patient is currently not on mechanical ventilation. RASS scale (-4) is deep sedation with no response to voice but movement or eye opening to physical stimulation. RASS scale (-5) is unarousable. Patient Monitoring Once the patient has demonstrated a response to the naloxone, continue to monitor respiratory rate, depth, oxygen saturation and end-tidal CO2 (if available) every 15 minutes x 2, then every 30 minutes x 2, then every 1 hour x 1 after each naloxone dose. Consider transfer to ICU if patient respiratory parameters have not improved after 4 naloxone doses. naloxone (NARCAN) injection 0.4 mg(Linked Group 5) 0.4 mg, Intramuscular, EVERY 2 MIN PRN, opioid reversal, Starting on Tue05/15/25 at 0654, Administer intramuscular if an intravenous route is not available and notify provider when administered. For unintended sedation or respiratory depression if all of the below criteria are met: ~ respiratory rate LESS than or EQUAL to 8. ~ SaO2 less than 92% and or/end-tidal CO2 is greater than 50. ~ the patient is receiving an opioid, has unintended sedation assessed as RASS (-4) or (-5) and patient is currently not on mechanical ventilation. RASS scale (-4) is deep sedation with no response to voice but movement or eye opening to physical stimulation. RASS scale (-5) is unarousable. Patient Monitoring Once the patient has demonstrated a response to the naloxone, continue to monitor respiratory rate, depth, oxygen saturation and end-tidal CO2 (if available) every 15 minutes x 2, then every 30 minutes x 2, then every 1 hour x 1 after each naloxone dose. Consider transfer to ICU if patient respiratory parameters have not improved after 4 naloxone doses. ondansetron (ZOFRAN ODT) ODT tab 4 mg(Linked Group 6) 4 mg, Oral, EVERY 6 HOURS PRN, nausea/vomiting - 2nd line, Starting on Tue05/15/25 at 0947, This is Step 2 of OB nausea and vomiting management. Preferred route. Give If nausea not resolved in 30 minutes after giving metoclopramide (REGLAN). If nausea is not resolved in 15 minutes, go to Step 3 (Compazine). With dry hands, peel back foil backing and gently remove tablet. Do not push oral disintegrating tablet through foil backing. Administer immediately on tongue and oral disintegrating tablet dissolves in seconds, then swallow with saliva. Liquid not required. ondansetron (ZOFRAN) injection 4 mg(Linked Group 6) 4 mg, Intravenous, EVERY 6 HOURS PRN, nausea/vomiting - 2nd line, Administer over 2-5 Minutes, Starting on Tue05/15/25 at 0947, This is Step 2 of OB nausea and vomiting management. Use IV if not tolerating oral therapy. Give if nausea not resolved 30 minutes after giving metoclopramide (REGLAN). If nausea is not resolved in 15 minutes, go to Step 3 (Compazine). oxyCODONE (ROXICODONE) tablet 5 mg 5 mg, Oral, EVERY 4 HOURS PRN, other, moderate to severe breakthrough pain. Hold dose for analgesic side effects., Starting on Tue05/15/25 at 0947, Notify provider to assess for uncontrolled pain or analgesic side effects. Hold while on [facility] or with regular IV opioid dosing. Maximum total is 60 mg in 24 hours. 0019 ($Given - Provider: Brandi Robertson RN)0440 ($Given - Provider: Brandi Robertson RN)0836 ($Given - Provider: Mary Verdugo RN)1243 ($Given - Provider: Mary Verdugo RN)1800 ($Given - Provider: Yamile Rojas RN)2208 ($Given - Provider: Brandi Robertson RN) 0207 ($Given - Provider: Brandi Robertson, ZEN)0630 ($Given - Provider: Brandi Robertson RN)1156 ($Given - Provider: Gerri Goodman RN)1755 ($Given - Provider: Gerri Goodman RN)2352 ($Given - Provider: Chey Starkey, ZEN) 0633 ($Given - Provider: Chey Starkey, RN)1218 ($Given - Provider: Gerri Goodman RN) oxytocin (PITOCIN) 30 units in 500 mL 0.9% NaCl infusion 340 mL/hr, Intravenous, CONTINUOUS PRN, for hemorrhage (PPH) UNTIL bleeding subsided., Starting on Tue05/15/25 at 0947, When bleeding subsides decrease rate to 100 mL/hr. Notify provider immediately when infusion begun. Oxytocin is first line medication for PPH. oxytocin (PITOCIN) injection 10 Units 10 Units, Intramuscular, ONCE PRN, for hemorrhage (PPH), IF no IV access is available., Starting on Tue05/15/25 at 0947, For 1 dose, Notify provider immediately when injection given. Oxytocin is first line medication for PPH. Patient may continue current oral medications CONTINUOUS PRN, Starting on Tue05/15/25 at 1702, Until 05/18/25 at 1731 prochlorperazine (COMPAZINE) injection 10 mg(Linked Group 7) 10 mg, Intravenous, EVERY 6 HOURS PRN, nausea/vomiting - 3rd line, Administer over 2 Minutes, Starting on Tue05/15/25 at 0947, This is Step 3 of OB nausea and vomiting management. Use IV if not tolerating oral therapy. Give if nausea not resolved 15 minutes after giving ondansetron (ZOFRAN). If nausea is not resolved in 30 minutes, notify provider. prochlorperazine (COMPAZINE) tablet 10 mg(Linked Group 7) 10 mg, Oral, EVERY 6 HOURS PRN, nausea/vomiting - 3rd line, Starting on Tue05/15/25 at 0947, This is Step 3 of OB nausea and vomiting management. Preferred route. Give if nausea not resolved 15 minutes after giving ondansetron (ZOFRAN). If nausea is not resolved in 30 minutes, notify provider. simethicone (MYLICON) chewable tablet 80 mg 80 mg, Oral, EVERY 6 HOURS PRN, other, abdominal gas, Starting on Tue05/15/25 at 0947, Chew. 0230 ($Given - Provider: Brandi Robertson RN)1546 ($Given - Provider: Yamile Rojas RN) sodium chloride (PF) 0.9% PF flush 3 mL 3 mL, Intracatheter, EVERY 1 MIN PRN, line flush, other, to ensure patency or to lock dormant line, Starting on Tue05/14/25 at 1652 sodium chloride (PF) 0.9% PF flush 3 mL 3 mL, Intracatheter, EVERY 1 MIN PRN, line flush, other, to ensure patency or to lock dormant line, Starting on Tue05/15/25 at 0947 0825 ($Given - Provider: Gerri Goodman RN) sodium phosphate (FLEET ENEMA) 1 enema 1 enema, Rectal, DAILY PRN, constipation, , Starting on Tue05/17/25 at 0000, Use IF bisacodyl not effective. Start POD 2. Hold for loose stools unless being administered as part of a bowel prep regimen prior to a procedure. tranexamic acid 1 g in 100 mL NS IV bag (premix) 1 g, Intravenous, Administer over 10 Minutes, EVERY 30 MIN PRN, Post- hemorrhage (PPH), Starting on Tue05/15/25 at 0947, For 2 doses, Provider consultation REQUIRED and MUST be administered as soon as the ONSET of bleeding AND within 3 hours of regardless of cause of the PPH (atony OR laceration). IF bleeding continues, a 2nd dose may be administered after 30 minutes. IF concern for DIC (Disseminated Intravascular Coagulation), obtain coagulation studies PRIOR to administration. Contraindications include: history of PE (Pulmonary Emboli), DVT (Deep Vein Thrombosis) and current Subarachnoid hemorrhage and active DIC. Administer only if directed by provider. Each 1 gram to be infused over 10 minutes. Linked Groups Order Group 1: senna-docusate (SENOKOT-S/PERICOLACE) 8.6-50 MG per tablet 1 tabletJump to med 1 tablet, Oral, 2 TIMES DAILY, First dose on Tue05/15/25 at 1000, If no bowel movement in 24 hours, increase to 2 tablets PO. Hold for loose stools. Preferred agent for constipation related to opioids. Hold for loose stools. Or senna-docusate (SENOKOT-S/PERICOLACE) 8.6-50 MG per tablet 2 tabletJump to med 2 tablet, Oral, 2 TIMES DAILY, First dose on Tue05/15/25 at 1000, Hold for loose stools. Preferred agent for constipation related to opioids. Hold for loose stools. Group 2: carboprost (HEMABATE) injection 250 mcgJump to med 250 mcg, Intramuscular, EVERY 15 MIN PRN, other, ONLY for uterine atony with significant bleeding POST-DELIVERY, Starting on Tue05/15/25 at 0947, Notify provider IF uterine atony and clarify with provider medication preference. Administer only if directed by provider. Give with caution in patients with asthma, active pulmonary, hepatic, renal or cardiovascular disease. And loperamide (IMODIUM) capsule 4 mgJump to med 4 mg, Oral, ONCE PRN, other, Give with first dose of carboprost (HEMABATE), Starting on Tue05/15/25 at 0947, For 1 dose, May give only after delivery. Group 3: metoclopramide (REGLAN) tablet 10 mgJump to med 10 mg, Oral, EVERY 6 HOURS PRN, nausea/vomiting - 1st line, Starting on Tue05/15/25 at 0947, This is Step 1 of OB nausea and vomiting management. Preferred route. If nausea is not resolved in 30 minutes, go to Step 2 (Zofran) Avoid use if patient has full bowel obstruction or perforation. Or metoclopramide (REGLAN) injection 10 mgJump to med 10 mg, Intravenous, Administer over 2 Minutes, EVERY 6 HOURS PRN, nausea/vomiting - 1st line, Starting on Tue05/15/25 at 0947, This is Step 1 of OB nausea and vomiting management. Use IV if not tolerating oral therapy. If nausea is not resolved in 30 minutes, go to Step 2 (Zofran). Avoid use if patient has full bowel obstruction or perforation. Group 4: misoprostol (CYTOTEC) tablet 400 mcgJump to med 400 mcg, Oral, GIVE ONCE PRN AND REPEAT ACCORDING TO INSTRUCTIONS, post- hemorrhage, Starting on Tue05/15/25 at 0947, Administer only if directed by provider. Max administrations: 4 doses Or misoprostol (CYTOTEC) tablet 800 mcgJump to med 800 mcg, Rectal, GIVE ONCE PRN AND REPEAT ACCORDING TO INSTRUCTIONS, post- hemorrhage, Starting on Tue05/15/25 at 0947, Give rectally if unable to take oral without complications. Administer only if directed by provider. Max administrations: 4 doses. Group 5: naloxone (NARCAN) injection 0.2 mgJump to med 0.2 mg, Intravenous, EVERY 2 MIN PRN, opioid reversal, Starting on Tue05/15/25 at 0654, Administer intravenous route when available and notify provider when administered. For unintended sedation or respiratory depression if all of the below criteria are met: ~ respiratory rate LESS than or EQUAL to 8. ~SaO2 less than 92% and or/end-tidal CO2 is greater than 50. ~ the patient is receiving an opioid, has unintended sedations assessed as RASS (-3), and is currently not on mechanical ventilation. RASS scale moderate (-3) is movement or eye opening to voice but no eye contact. Patient Monitoring Once the patient has demonstrated a response to the naloxone, continue to monitor respiratory rate, depth, oxygen saturation and end-tidal CO2 (if available) every 15 minutes x 2, then every 30 minutes x 2, then every 1 hour x 1 after each naloxone dose. Consider transfer to ICU if patient respiratory parameters have not improved after 4 naloxone doses. Or naloxone (NARCAN) injection 0.4 mgJump to med 0.4 mg, Intravenous, EVERY 2 MIN PRN, opioid reversal, Starting on Tue05/15/25 at 0654, Administer intravenous route when available and notify provider when administered. For unintended sedation or respiratory depression if all of the below criteria are met: ~ respiratory rate LESS than or EQUAL to 8. ~ SaO2 less than 92% and or/end-tidal CO2 is greater than 50. ~ the patient is receiving an opioid, has unintended sedation assessed as RASS (-4) or (-5) and patient is currently not on mechanical ventilation. RASS scale (-4) is deep sedation with no response to voice but movement or eye opening to physical stimulation. RASS scale (-5) is unarousable. Patient Monitoring Once the patient has demonstrated a response to the naloxone, continue to monitor respiratory rate, depth, oxygen saturation and end-tidal CO2 (if available) every 15 minutes x 2, then every 30 minutes x 2, then every 1 hour x 1 after each naloxone dose. Consider transfer to ICU if patient respiratory parameters have not improved after 4 naloxone doses. Or naloxone (NARCAN) injection 0.2 mgJump to med 0.2 mg, Intramuscular, EVERY 2 MIN PRN, opioid reversal, Starting on Tue05/15/25 at 0654, Administer intramuscular if an intravenous route is not available and notify provider when administered. For unintended sedation or respiratory depression if all of the below criteria are met: ~ respiratory rate LESS than or EQUAL to 8. ~SaO2 less than 92% and or/end-tidal CO2 is greater than 50. ~ the patient is receiving an opioid, has unintended sedations assessed as RASS (-3), and is currently not on mechanical ventilation. RASS scale moderate (-3) is movement or eye opening to voice but no eye contact. Patient Monitoring Once the patient has demonstrated a response to the naloxone, continue to monitor respiratory rate, depth, oxygen saturation and end-tidal CO2 (if available) every 15 minutes x 2, then every 30 minutes x 2, then every 1 hour x 1 after each naloxone dose. Consider transfer to ICU if patient respiratory parameters have not improved after 4 naloxone doses. Or naloxone (NARCAN) injection 0.4 mgJump to med 0.4 mg, Intramuscular, EVERY 2 MIN PRN, opioid reversal, Starting on Tue05/15/25 at 0654, Administer intramuscular if an intravenous route is not available and notify provider when administered. For unintended sedation or respiratory depression if all of the below criteria are met: ~ respiratory rate LESS than or EQUAL to 8. ~ SaO2 less than 92% and or/end-tidal CO2 is greater than 50. ~ the patient is receiving an opioid, has unintended sedation assessed as RASS (-4) or (-5) and patient is currently not on mechanical ventilation. RASS scale (-4) is deep sedation with no response to voice but movement or eye opening to physical stimulation. RASS scale (-5) is unarousable. Patient Monitoring Once the patient has demonstrated a response to the naloxone, continue to monitor respiratory rate, depth, oxygen saturation and end-tidal CO2 (if available) every 15 minutes x 2, then every 30 minutes x 2, then every 1 hour x 1 after each naloxone dose. Consider transfer to ICU if patient respiratory parameters have not improved after 4 naloxone doses. Group 6: ondansetron (ZOFRAN ODT) ODT tab 4 mgJump to med 4 mg, Oral, EVERY 6 HOURS PRN, nausea/vomiting - 2nd line, Starting on Tue05/15/25 at 0947, This is Step 2 of OB nausea and vomiting management. Preferred route. Give If nausea not resolved in 30 minutes after giving metoclopramide (REGLAN). If nausea is not resolved in 15 minutes, go to Step 3 (Compazine). With dry hands, peel back foil backing and gently remove tablet. Do not push oral disintegrating tablet through foil backing. Administer immediately on tongue and oral disintegrating tablet dissolves in seconds, then swallow with saliva. Liquid not required. Or ondansetron (ZOFRAN) injection 4 mgJump to med 4 mg, Intravenous, EVERY 6 HOURS PRN, nausea/vomiting - 2nd line, Administer over 2-5 Minutes, Starting on Tue05/15/25 at 0947, This is Step 2 of OB nausea and vomiting management. Use IV if not tolerating oral therapy. Give if nausea not resolved 30 minutes after giving metoclopramide (REGLAN). If nausea is not resolved in 15 minutes, go to Step 3 (Compazine). Group 7: prochlorperazine (COMPAZINE) tablet 10 mgJump to med 10 mg, Oral, EVERY 6 HOURS PRN, nausea/vomiting - 3rd line, Starting on Tue05/15/25 at 0947, This is Step 3 of OB nausea and vomiting management. Preferred route. Give if nausea not resolved 15 minutes after giving ondansetron (ZOFRAN). If nausea is not resolved in 30 minutes, notify provider. Or prochlorperazine (COMPAZINE) injection 10 mgJump to med 10 mg, Intravenous, EVERY 6 HOURS PRN, nausea/vomiting - 3rd line, Administer over 2 Minutes, Starting on Tue05/15/25 at 0947, This is Step 3 of OB nausea and vomiting management. Use IV if not tolerating oral therapy. Give if nausea not resolved 15 minutes after giving ondansetron (ZOFRAN). If nausea is not resolved in 30 minutes, notify provider. documented in this encounter Care Teams Manager Perioperative Relationship Specialty Start Date End Date System, Provider Not In PCP - General Clinic 02/19/23 Daisy Beebe PA-C [id number] [facility] [address] [place] [address] Assigned PCP 08/25/22 Nilam Beal MD [address] [facility] [address] [place], [place] [id number] Cardiovascular Disease 02/21/23 Ofelia Macedo MD [address] [facility] [address] [place], [place] [id number] Assigned Pediatric Specialist Provider 03/13/25 documented as of this encounter
--- OUTSIDE RECORDS SUMMARY | 2025-05-15 01:55 | XMS_ITS | Encounter Summary ---
Author Organization [facility] Address [address] [place] [address]. [place] [address] Care Team Providers Care Integrity Director Name Role Phone Daisy Beebe PA-C Unavailable [phone] System, Provider Not In Primary Care Provider Un available Nilam Beal MD Unavailable Ofelia Macedo MD Unavailable [phone] Reason for Visit * Reason Comments Rule Out Pre-eclampsia * Auth/Cert (Routine) Specialty Diagnoses / Procedures Referred By Lewis t Referred To Contact Obstetrics Diagnoses Chronic hypertension with superimposed preeclampsia Maternity*dora: 07/03/25/Pre E Dhruv Velasquez MD [address] [place] [address] Phone: tel: fax: [facility] [address] [place] [address] Phone: tel: Referral ID Status Reason Start Date Expiration Date Visits Re quested Visits Authorized [id number] 1 1 Encounter Details Date Type Department Care Team (Late st Contact Info) Description 05/15/2025 1:55 AM CDT - 05/15/2025 3:[address] [facility] [address] [place] [phone] Theresa Park MD [address] [place] [address] section Surgery Details Date/Time Status Location OR Service Patient Class Case Class Case Type Trauma Case? 05/15/2025 1:55 AM Posted UR L+D UR Z LD 01 Obstetrics Inpatient NEST 2 - Emergent (within 1hr) Panel 1 Procedure LRB Anes Op Region Wound Class Comments section N/A Spinal Abdomen II-Clean Cont aminated Cystoscopy N/A Bladder II-Clean Contaminat ed Surgeon Surgeon Role Service Panel Justyna Lomeli MD Assisting Obstetrics 1 Theresa Park MD Primary Obstetrics 1 Balta Goyal MD Resident - Assisting Obstetri cs 1 Shannon Mustafa MD Resident - Assisting 1 documented in this encounter Social History Tobacco Use Types Packs/Day Years Used Date Smoking Tobacco: Former Cigarettes Q uit: 09/22/2021 Smokeless Tobacco: Never Tobacco Cessation:Counseling Given: Not Answered Alcohol Use Standard Drinks/Week Comments Not Currently 0 (1 standard drink = 0.6 oz pur e alcohol) [place] Depression Scale Answer Date Recorded [place] Depression Scale Total 3 05/16/2025 The thought [...] Answer Date Recorded Do you have housing? (Housin g is defined as stable permanent housing and does not include staying outside in a car, in a tent, in an abandoned building, in an overnight fpc, or couch-surfing.) Yes 05/14/2025 Are you worried [...] on file Legal Sex Female 4:15 AM MANAGER RADIO Gender Identity Not on file Sexual Orientation Not on file documented as of this encounter Last Filed Vital Signs Vital Sign Reading Time Taken Comments Blood Pressure 117/56 05/15/2025 12:25 AM CDT Pulse - - Temperature 36.8 C (98.2 F) 05/14/2025 5:05 PM CDT Respiratory Rate 16 05/14/2025 5:05 PM CDT Oxygen Saturation 99% 05/14/2025 8:09 PM CDT Inhaled Oxygen Concentration - - Weight 144.7 kg (319 lb) 05/14/2025 6:00 PM CDT Height 175.3 cm (5' 9) 05/14/2025 6:00 PM CDT Body Mass Index 45.81 05/14/2025 6:00 PM CDT documented in this encounter Discharge Summaries * Sapphire Vargas MD - 05/18/2025 7:12 AM CDT Images from the original note were not included. [facility] Discharge Summary Kami Estes Age: [age] year old Date of : 1995 Date of Admission: 05/14/2025 Date of Discharge:: 05/18/2025 Admitting Physician: Dhruv Harris MD Discharge Physician: Sapphier Vargas MD Admission Diagnoses: - Intrauterine at [...] your medicines These medications were sent to [facility] [place], [place] - [address] [facility] [address] [id number] oxyCODONE 5 MG tablet senna-docusate 8.6-50 MG tablet These medications were sent to [id number] - [place], [place] - [address] [facility] [address] [facility] [id number] metoprolol succinate ER 50 MG 24 hr [...] a at 32w6d as a transfer from [facility] for superimposed preeclampsia with severe features. At [...] was taken off NPO status from approx [phone] given improvement in headache and normotensive pressures. [...] or other signs of a seizure Call 9-1-1 if you feel that it is an [...] of your health care provider. Copyright 2020 [facility]. All rights reserved. Clinically reviewed by BELLA Ledezma-OB, MSN. [employer] [id number] - Rev 10/14. * Attachments The following attachments cannot be sent through Care Everywhere. * (s) Checking Your Blood Pressure at Home: During and after (Ghanaian) * Care: : Baby in NICU (Ghanaian) documented in this encounter Medications at Time [...] - Serial BP monitoring normotensive - Antihypertensives: KEY ACCOUNT REPRESENTATIVE labatelol 100mg TID > discontinued. - Patient [...] A2 - Fbg 107 # Asthma - KEY ACCOUNT REPRESENTATIVE albuterol PRN # MDD # LOGAN # Hx SI - KEY ACCOUNT REPRESENTATIVE citalopram 10mg qAM - KEY ACCOUNT REPRESENTATIVE lamotrigine 200mg qAM Medically Ready for Discharge: Anticipated Today Discussed with patient follow up can be with our clinic (S) or her home OB, whichever is most [...] Evaluation Time PT Eval, Low Complexity Minutes (62648) 7 Physical Therapy Goals PT Frequency One time eval and treatment only Pt will perform x1 flight stairs L rail IND with pain managed (goal met) Interventions Interventions Quick Adds Therapeutic Activity;Gait Training Therapeutic Activity Therapeutic Activities: dynamic activities to improve functional performance Minutes (58555) 3 Symptoms Noted During/After Treatment None Treatment Detail/Skilled Intervention educated on positioning in car for trips and consider use of pillow of bracing, pt already has abd binder she is wearing which is helping. Gait Training Gait Training Minutes (33701) 8 Symptoms Noted During/After Treatment (Gait Training) [...] - Serial BP monitoring normotensive - Antihypertensives: KEY ACCOUNT REPRESENTATIVE labatelol 100mg TID > 1d labetalol 100 [...] A2 - Fbg 107 # Asthma - KEY ACCOUNT REPRESENTATIVE albuterol PRN # MDD # LOGAN # Hx SI - KEY ACCOUNT REPRESENTATIVE citalopram 10mg qAM - KEY ACCOUNT REPRESENTATIVE lamotrigine 200mg qAM Medically Ready for Discharge: [...] -- -- -- 17 98 % -- 05/15/25 2005 103/67 -- -- 96 16 100 % [...] monitoring with low normotensive yesterday - Antihypertensives: KEY ACCOUNT REPRESENTATIVE labatelol 100mg TID > 1d labetalol 100 BID> D#1 labetalol 50 BID - IV antihypertensives PRN for sustained severe range blood pressures (SBP>160, DBP>110 sustained over 15 minutes) - Labs: will repeat LFTS's, mildly elevated AST 82>96; ALT 50 (05/15) - Daily weights, strict I&Os - S/p 24 hours of magnesium # Gestational Diabetes A2 - Fbg 107 # Asthma - KEY ACCOUNT REPRESENTATIVE albuterol PRN # MDD # LOGAN # Hx SI - KEY ACCOUNT REPRESENTATIVE citalopram 10mg qAM - KEY ACCOUNT REPRESENTATIVE lamotrigine 200mg qAM Medically Ready for Discharge: [...] (37 ??C) Oral -- 16 98 % 05/15/25 2117 114/61 -- -- -- -- 98 % 05/15/25 2005 103/67 -- -- 96 16 100 % [...] BP Temp Temp src Pulse Resp SpO2 05/15/25 2211 102/63 98.6 ??F (37 ??C) -- -- -- 98 % 05/15/25 2117 114/61 -- -- -- -- 98 % [...] UOP: 1200 mL over 4 hours A/P: Kami Eusebio Estes is a 29 year old who [...] Hgb. Theresa Park MD, MSCI, FACOG, MSCP Finance Clerk [facility] May 15, 2025 * [...] -- 100 14 98 % -- -- 05/15/2530 -- -- -- 109 18 98 % [...] hours PreE Labs: Recent Labs Lab Test 05/15/25 0933 05/15/25 0142 05/14/25 1706 HGB 9.7* 11.0* 11.2* Recent Labs Lab Test 05/15/25 0933 05/15/25 0142 05/14/25 1706 PLT 325 341 353 [...] throughout their baby's NICU admission. FELIPE Orantes, ZAHRA Maternal Child Health Account Management Specialist M,W-F 08:00-16:30 on [employer] Cell [email or web address] * Gerri Goodman RN - 05/15/2025 9:30 AM CDT Patient arrived to [facility] unit via zoom cart at 0920,with belongings, accompanied by spouse/ significant other. Received report from Annmarie Hendricks RN .Unit and room orientation completd. Call light given; no concerns present at this time. Continue with plan of care. * Theresa Park MD - 05/15/2025 1:22 AM CDT Assumed care for this patient around 0100, [facility] recommends delivery for vision changes consistent with pre-e with SF. On Magnesium for seizure prophylaxis. Recommend in 30 minutes/urgent. Anesthesia updated, will bring to OR as soon as other cases are concluded. FHT cat 1. Ancef for antibiotics. Avoid methergine if PPH. Theresa Park MD, MSCI, FACOG, MSCP Finance Clerk [facility] May 15, 2025 * [...] 8w2d US who presents as transfer from [facility] for superimposed preeclampsia with severe features. She [...] Mg and accepted as transfer to the [facility] service. On arrival, she reports a current [...] is notable for a prior x1 in 2016 for category II FH, which was uncomplicated. [...] - BPs: Normotensive on arrival - Antihypertensives: KEY ACCOUNT REPRESENTATIVE labatelol 100mg TID; IV antihypertensives PRN for [...] Well controlled. Uses rescue inhaler infrequently. - KEY ACCOUNT REPRESENTATIVE albuterol PRN - Avoid hemabate in setting [...] MDD # LOGAN # Hx SI - KEY ACCOUNT REPRESENTATIVE citalopram 10mg qAM - KEY ACCOUNT REPRESENTATIVE lamotrigine 200mg qAM # FWB: - Cat [...] this encounter Consult Notes * Aleksandra Francisco, CLAIM INSPECTOR - 05/16/2025 10:14 AM CDTAssociated Order(s): SOCIAL WORK IP CONSULT *copied from baby's chart: NICU -INITIAL SOCIAL WORK ASSESSMENT DATA: Reason for Consult: NICU admission Presenting Information: Baby Anthony was born premature at 33w0d gestation and admitted to the NICU at [facility]. SW met with his parents, Fay and Kain, in Fay's room to introduce self and role, provide support, answer questions and assess for needs. Fay and Kain were open and engaged in conversation with SW. Living Situation: Verify address: yes, family lives in [place], [place]; are considering having Anthony transferred to [facility] to be closer to home but are unsure at this time County: Other: [place] People living within home: significant other/spouse -Kain and son: Nathan Minor children outside home: No Marital status: Social Support/Professional Community Support: Fay and Kain have a robust support system of family [...] unit Child Family Life. 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 ZAHRA Adhikari Acute Care Management [facility] For further questions/concerns reach us at [employer] * Radha Montiel MD - 05/14/2025 11:00 PM CDTAssociated Order(s): ADVANCED PRACTICE PROVIDER IP CONSULT Images from the original note were not included. Neonatology Antepartum Counseling Consult: I was asked to provide antepartum counseling for Kami Estes at the request of Dhruv Harris [...] potential risks, and outcomes associated with an infant born at this gestation. The counseling included: morbidity, mortality, initial delivery room stabilization, respiratory course, lung development, nutrition, IV fluids and oral feeding, hypoglycemia, growth and development, and alf outcomes. I also explained the basic four [...] troubleshooting tips and where to return/exchange at [facility] in future. Parents are unsure on insurance coverage currently. Sandra also has a wearable Mom Cozy pump; we discussed pros/cons of different pump types. Reviewed recommended pumping schedule for exterminator milk supply. Discussed hands on pumping [...] scheduled check in. JOSE Gomez, RN, IBCLC Administrative Analyst Stefano: [employer] [phone] Office: [phone] * Plan of Care - Gladys Moreno RN - 05/18/2025 12:04 PM CDT Goal Outcome Evaluation: Plan of Care Reviewed With: patient Problem: Adult Inpatient Plan of Care Goal: Optimal Comfort and Wellbeing Outcome: Progressing Intervention: Provide Person-Centered Care Recent Flowsheet Documentation Taken 05/18/2025827 by Gladys Moreno RN Trust Relationship/Rapport: care [...] cares and is able to care for . Action: Patient medicated during the shift for pain and cramping. See MAR. Patient reassessed within 1 hour after each medication and pain was improved - patient stated she was comfortable. Patient education done about pain management. See flow record. Response: Positive attachment behaviors observed with . Support persons present. Plan: Continue with current [...] care. * Plan of Care - Dariela Howard, PT - 05/17/2025 1:15 PM CDT Physical Therapy Discharge Summary Reason for therapy discharge: All goals and outcomes met, no further needs identified. Progress towards therapy goal(s). See goals on Care Plan in [facility] electronic health record for goal details. Goals met Therapy recommendation(s): No further therapy is recommended. * Plan of Care - Brandi Robertson RN - 05/17/2025 6:21 AM CDT Goal Outcome Evaluation: Plan of Care Reviewed With: patient, spouse Overall Patient Progress: improvingOverall Patient Progress: improving Problem: Adult Inpatient Plan of Care Goal: Optimal Comfort and Wellbeing Outcome: Progressing Intervention: Provide Person-Centered Care Recent Flowsheet Documentation Taken 05/16/20252137 by Brandi Robertson, RN Trust Relationship/Rapport: care explained choices provided [...] assessment as charted. Patient pumping frequently for son in NICU. Plan to keep zavala [...] a baby's chart. Admission Note Baby Information: 's first name: Anthony (e-[facility]) Infant medical history: 33+0, RDS Kindergartner needed? No goal (if known): Breastfeed history: Her first had difficulty latching and she was not given support and education; she tried triple feeding for a week at home then gave up. She is hopeful with better education and support she has a better outcome and is successful this time. Mother's Information: Name: Sandra Occupation: Age: 31 Delivery type: [place]: [employer] Pump for home use: Has a Mom Cozy wearable and a cheap pump I bought, I can't remember the brand.Plans to rent a Symphony for now. Partner's name: Kain Occupation: Relevant maternal medical and social hx: Information for the patient's mother: Kami Estes [[id number]] History reviewed. No pertinent past medical history., Information for the patient's mother: Kami Estes [[id number]] Patient Active Problem List Diagnosis Adjustment disorder [...] Information for the patient's mother: Kami Estes [[id number]] Medications Prior to Admission Medication Sig Dispense [...] not allowed to look up anything on Google, he looks things up for me and [...] hopeful after visit. Radha Booth RNC-ARCHIE, IBCLC Administrative Analyst Stefano: [employer] [phone] Office: [phone] * Plan of Care - Brandi Robertson [...] Mustafa MD - 05/15/2025 5:59 AM CDT [facility] BUSINESS AND MARKETING TEACHER Brief Operative Note Pre-operative diagnosis: - Intrauterine [...] Procedure: Procedure(s): section Cystoscopy Surgeon: Dr. Theresa Park MD Real Estate Legal Secretary(s): Balta Goyal MD PGY-3 Shannon Mustafa MD [...] with jets. Clear amniotic fluid Liveborn male . Born at 0322 on 05/15/25. Apgars 7 [...] Park MD - 05/15/2025 2:25 AM CDT [facility] Operative Note Surgery Date: 05/15/2025 Surgeon: Surgeons and Role: * Theresa Park MD - Primary * Justyna Lomeli MD - Assisting * Balta Goyal MD - Resident - Assisting * [...] doubly clamped and cut immediately and the was handed off to the awaiting nursery [...] Service: 05/15/25 * Plan of Care - Evla Neely RN - 05/14/2025 7:05 PM CDT Patient arrived to unit via ambulance from [facility]. Patient on magnesium upon arrival. Upon arrival [...] Info) Description 05/23/2025 8:00 AM CDT Appointment formerly [facility] [address] [place] [phone] Delaney Watkins MD [address] [place] [phone] 05/23/2025 1:45 PM CDT Office Visit [facility] [place] [address] Floor,[address] [place] [facility] [address] [place] [phone] Annmarie Rodrigues MD [address] [facility] [address] [place] [address] Pending Results Name Type Priority Associated Diagnoses [...] - BLOOD ORDERABLES Final Result UR LABORATORY [facility] [address] [place] [address], [address] * Extra Green Top ([place]andridge Heparin) Tube (05/18/2025 6:23 AM CDT) Hold Specimen JIC 05/18/2025 8:16 AM CDT UR LABORATORY Blood STRUCTURE OF LEFT UPPER LIMB / Unknown Venipuncture / Unknown 05/18/2025 6:23 AM CDT 05/18/2025 7:10 AM CDT us Theresa Park MD LAB - BLOOD ORDERABLES Final Result Performing Organization Address City/[facility] Co de Phone Number UR LABORATORY [facility] [address] [place] [address], [address] * Platelet count (05/18/2025 6:23 AM CDT) Platelet Count 315 150 - 450 10e3/uL 05/18/2025 6:39 AM CDT UR LABORATORY MCV 82.5 78.0 - 100.0 fL 05/18/2025 6:39 AM CDT UR LABORATORY Blood STRUCTURE OF LEFT UPPER LIMB / Unknown Venipuncture / Unknown 05/18/2025 6:23 AM CDT 05/18/2025 6:34 AM CDT us Balta Goyal MD LAB - BLOOD ORDERABLES Fi nal Result Performing Organization Address City/[facility]/ZIP Co de Phone Number UR LABORATORY [facility] [address] [place] [address], [address] [phone] [place] [address] * (ABNORMAL) ALT (05/16/2025 7:24 AM CDT) ALT 80(H) 0 - 50 U/L 05/16/2025 8:3 1 AM CDT UR LABORATORY Blood BLOOD SPECIMEN / Unknown Venipuncture / Unknown 05/16/2025 7:24 AM CDT 05/16/2025 8:12 AM CDT Delaney Watkins MD LAB - BLOOD ORDERABLES Final Re sult Performing Organization Address City/[facility]/ZIP Co de Phone Number UR LABORATORY [facility] [address] [place] [address], Room [place] [phone] * AST (05/16/2025 7:24 AM CDT) AST 39 0 - 45 U/L 05/16/2025 8:3 1 AM CDT UR LABORATORY Blood BLOOD SPECIMEN / Unknown Venipuncture / Unknown 05/16/2025 7:24 AM CDT 05/16/2025 8:12 AM CDT Delaney Watkins MD LAB - BLOOD ORDERABLES Final Re sult UR LABORATORY [facility] [address] [place] [address], [address] [phone], [place] * (ABNORMAL) Hemoglobin (05/16/2025 7:24 AM CDT) Hemoglobin 8.7(L) 11.7 - 15.7 g/dL 05/16/2025 8:15 AM CDT UR LABORATORY MCV 84.8 78.0 - 100.0 fL 05/16/2025 8:15 AM CDT UR LABORATORY Blood BLOOD SPECIMEN / Unknown Venipuncture / Unknown 05/16/2025 7:24 AM CDT 05/16/2025 8:12 AM CDT us Balta Goyal MD LAB - BLOOD ORDERABLES Fi nal Result UR LABORATORY [facility] [address] [facility], Room [place] [phone] * (ABNORMAL) Hemoglobin (05/15/2025 8:19 PM CDT) Hemoglobin 9.5(L) 11.7 - 15.7 g/dL 05/15/2025 8:28 PM CDT UR LABORATORY MCV 84.1 78.0 - 100.0 fL 05/15/2025 8:28 PM CDT UR LABORATORY Blood STRUCTURE OF RIGHT UPPER LIMB / Unknown Venipuncture / Unknown 05/15/2025 8:19 PM CDT 05/15/2025 8:25 PM CDT us Theresa Park MD LAB - BLOOD ORDERABLES Final Result Performing Organization Address City/[facility] Co de Phone Number UR LABORATORY [facility] [address] [place] [address], Room [place] [phone] * (ABNORMAL) Comprehensive Metabolic Panel (Limited Occurrences) [...] 9:33 AM CDT 05/15/2025 9:37 AM CDT Paco Segura MD LAB - BLOOD ORDERABLES Julianna padron Result UR LABORATORY [facility] [address] [facility], [address] [place] [address], [facility] * (ABNORMAL) CBC with Platelets (Limited Occurrences) [...] BLOOD ORDERABLES Julianna l Result UR LABORATORY [facility] Lab [address] [place] [address], [address] [phone] * (ABNORMAL) Glucose by meter (05/15/2025 6:21 AM CDT) [facility] Signature GLUCOSE BY METER POCT 107(H) 70 - 99 mg/dL 05/15/2025 6:28 AM CDT UR LABORATORY POC Blood, Capillary BLOOD SPECIMEN / Unknown 05/15/2025 6:21 AM CDT 05/15/2025 6:28 AM CDT us Dhruv Harris MD LAB - BEAKER POCT Final Re sult UR LABORATORY POC [facility] [address] [place] [address], [address] * (ABNORMAL) Glucose by meter (05/15/2025 2:07 AM CDT) GLUCOSE BY METER POCT 103(H) 70 - 99 mg/dL 05/15/2025 2:17 AM CDT UR LABORATORY POC Blood, Capillary BLOOD SPECIMEN / Unknown 05/15/2025 2:07 AM CDT 05/15/2025 2:17 AM CDT us Dhruv Harris MD LAB - BEAKER POCT Final Re sult UR LABORATORY POC [facility] [address] [facility], Room [address] * (ABNORMAL) CBC with platelets (05/15/2025 1:42 [...] 1:42 AM CDT 05/15/2025 1:44 AM CDT Balta Goyal MD LAB - BLOOD ORDERABLES Fi nal Result UR LABORATORY [facility] [address] [facility], [address] [place] [address] * CT Head w/o Contrast (05/14/2025 11:58 [...] the vertex were obtained without intravenous contrast. Air Bag Buffer (topogram) image(s) also obtained and reviewed. FINDINGS: [...] the vertex were obtained without intravenous contrast. Air Bag Buffer (topogram) image(s) also obtained and reviewed. FINDINGS: [...] CDT 05/14/2025 8:58 PM CDT us Dhruv BROWN - SUSHILA POCT Final Re sult UR LABORATORY POC [facility] [address] [place] [address], [address] [place] [phone] * (ABNORMAL) Glucose by meter (05/14/2025 7:37 PM CDT) GLUCOSE BY METER POCT 111(H) 70 - 99 mg/dL 05/14/2025 7:49 PM CDT UR LABORATORY POC Blood, Capillary BLOOD SPECIMEN / Unknown 05/14/2025 7:37 PM CDT 05/14/2025 7:49 PM CDT us Dhruv CONTI POCT Final Re sult UR LABORATORY POC [facility] Lab [address] [facility], [address] [place] [address], [facility] * Group B strep PCR (05/14/2025 6:54 [...] Xpert GBS LB Assay, performed on the [employer], is a qualitative in vitro diagnostic [...] settings. The device is not intended for [id number]-pv-kxcw use. us Paco Segura MD LAB - MICRO GENERAL ORDERAB LES Final Result [facility] IDD LABORATORY [facility] Inf. Diseases Diag. Lab [address] [facility], [address] [place] [address], [facility] * Adult Type and Screen (05/14/2025 5:06 [...] TEST ORDER Final Result UR BLOOD BANK [facility] Lab [address] [facility], [address] [place] [address], [facility] * Treponema Abs w Reflex to RPR and Titer (05/14/2025 5:06 PM CDT) Treponema Antibody Total Nonreactive Nonreactive 05/15/2025 10:26 AM CDT SPECIALTY LABS Blood STRUCTURE OF RIGHT UPPER LIMB / Unknown Venipuncture / Unknown 05/14/2025 5:06 PM CDT 05/14/2025 5:20 PM CDT Paco Segura MD LAB - BLOOD ORDERABLES Julianna l Result SPECIALTY CORE/PROT/ENDO [facility] Specialty Core/Prot/Endo [address] [facility] [facility], Room [address] [address], [facility] [address] [facility], [address] [address], [facility] * (ABNORMAL) Magnesium (05/14/2025 5:06 PM CDT) Magnesium 3.8(H) 1.7 - 2.3 mg/dL 05/14/2025 5:44 PM CDT UR LABORATORY Blood STRUCTURE OF RIGHT UPPER LIMB / Unknown Venipuncture / Unknown 05/14/2025 5:06 PM CDT 05/14/2025 5:20 PM CDT us Paco Segura MD LAB - BLOOD ORDERABLES Julianna l Result UR LABORATORY [facility] [address] [facility], [address] [place] [address], [facility] * (ABNORMAL) Comprehensive Metabolic Panel (05/14/2025 5:06 [...] BLOOD ORDERABLES Julianna l Result UR LABORATORY [facility] [address] [facility], [address] [place] [address] * (ABNORMAL) CBC with platelets (05/14/2025 5:06 PM CDT) [facility] WBC Count 13.10(H) 4.00 - 11.00 10e3/uL [...] BLOOD ORDERABLES Julianna l Result UR LABORATORY [facility] [address] [facility], [address] [place] [address], [facility] documented in this encounter Visit Diagnoses Diagnosis [...] section Other postprocedural status Tachycardia Tachycardia, unspecified delivery w/o mention of indication, deliv, curr hospitaliz documented in this encounter Admitting Diagnoses Diagnosis [...] $Given 05/17/2025 11:52 PM CDT 975 mg carboprost (HEMABATE) injection 250 [...] $Given 05/17/2025 6:32 AM CDT 40 mg lactated ringers infusion at 10-125 mL/hr, Intravenous, CONTINUOUS, Titrate lactated ringers rate to obtain total IV intake of no more than 125 mL/hour, Starting on Tu05/14/25 at 1730, Until 05/18/25 at 1731 $New [...] $Given 05/16/2025 12:02 PM CDT 200 mg loperamide (IMODIUM) capsule 4 mg 4 mg, Oral, ONCE PRN, other, Give with first dose of carboprost (HEMABATE), Starting on Tue05/15/25 at 0947, For 1 dose, May give only after delivery. metoclopramide (REGLAN) injection 10 mg 10 mg, [...] or analgesic side effects. Hold while on [employer] or with regular IV opioid dosing. Maximum total is 60 mg in 24 hours. $Given 05/18/2025 12:18 PM CDT 5 mg $Given 05/18/2025 6:33 AM CDT 5 mg $Given 05/17/2025 11:52 PM CDT 5 mg Patient may continue current oral medications CONTINUOUS [...] Starting on Tue05/15/25 at 0947 $Given 05/17/2025 8:2 5 AM CDT 3 mLs documented in this encounter Active and [...] ZEN) 0633 ($Given - Provider: Chey Starkey, ZEN)1218 ($Given - Provider: Gerri Goodman RN)1730 (Canceled [...] 0822 ($Given - Provider: Gladys Moreno RN) lidocaine (XYLOCAINE) 2 % external gel Urethral, [...] Verdugo RN)2143 (See Alternative - Provider: Brandi Robertson RN) 0820 (See Alternative - Provider: Gerri Goodman RN)1999 (Canceled Entry - Provider: Orders Generic Provider [...] Robertson RN)1548 (Canceled Entry - Provider: Yamile Rojas RN)2147 (Canceled Entry - Provider: Brandi Robertson RN) 0637 (Canceled Entry - Provider: Brandi Robertson, ZEN)1756 ($Given - Provider: Gerri Goodman RN)2200 (Canceled Entry - Provider: Orders Generic [...] Robertson, ZEN) 0632 ($Given - Provider: Brandi Robertson RN)1821 (Not Given - Provider: Gerri Goodman RN - Reason: Other)2200 (Canceled Entry - Provider: [...] Tue05/14/25 at 1730, Until 05/18/25 at 1731 0328 (Stopped - Provider: Brandi Robertson, ZEN) PRN Medication Order 05/16/2025 05/17/2025 05/18/2025 bisacodyl [...] or analgesic side effects. Hold while on [employer] or with regular IV opioid dosing. Maximum total is 60 mg in 24 hours. 0019 ($Given - Provider: Brandi Robertson RN)0440 ($Given - Provider: Brandi Robertson RN)0836 ($Given - Provider: Mary Verdugo RN)1243 ($Given - Provider: Mary Verdugo RN)1800 ($Given - Provider: Yamile Rojas RN)2208 ($Given - Provider: Brandi Robertsno RN) 0207 ($Given - Provider: Brandi Robertson RN)0630 ($Given - Provider: Brandi Robertson RN)1156 ($Given - Provider: Gerri Goodman RN)1755 ($Given - Provider: Gerri Goodman, RN)2352 ($Given - Provider: Chey Starkey, ZEN) [...] 0947, Chew. 0230 ($Given - Provider: Brandi Robertson, ZEN)1546 ($Given - Provider: Yamile Rojas RN) sodium chloride (PF) 0.9% PF flush 3 mL 3 mL, Intracatheter, EVERY 1 MIN PRN, line flush, other, to ensure patency or to lock dormant line, Starting on Tu05/14/25 at 1652 sodium chloride (PF) 0.9% PF [...] provider. documented in this encounter Care Teams Integrity Director Relationship Specialty Start Date End Date System, Provider Not In PCP - General Clinic 02/19/23 Daisy Beebe PA-C [address] [place] [address] Assigned PCP 08/25/22 Nilam Beal MD [address] [facility] [address] [place], [place] [id number] Cardiovascular Disease 02/21/23 Ofelia Macedo MD [address] [place], [place] [id number] Assigned Pediatric Specialist Provider 03/13/25 documented as of this encounter
--- OUTSIDE RECORDS SUMMARY | 2025-05-15 02:17 | XMS_ITS | Encounter Summary ---
Author Organization [facility] Address [address] [place] [address]. [place] [address] Care Team Providers Care [place] Operator Name Role Phone Daisy Beebe PA-C Unavailable [phone] System, Provider Not In Primary Care Provider Un available Nilam Beal MD Unavailable Ofelia Macedo MD Unavailable [phone] Reason for Visit * Auth/Cert (Routine) Specialty Diagnoses / Procedures Referred By Lewis t Referred To Contact Obstetrics Diagnoses Chronic hypertension with superimposed preeclampsia Maternity*dora: 07/03/25/Pre Dhruv Medina MD [address] [place] [address] [address] [place] [address] Phone: tel: fax: [facility] [address] [place] [phone] Phone: tel: Referral ID Status Reason Start Date Expiration Date Visits Re quested Visits Authorized [id number] 1 1 Encounter Details Date Type Department Care Team (Late st Contact Info) Description 05/15/2025 2:17 AM CDT Anesthesia Event [facility] [address] [place] [phone] Jorge Gonzalez MD [address] [facility] [address] [place] [address] Sunny Lou MD [address] [place] [id number] Anesthesia Record Procedure Summary Procedure Name Responsible Anesthesiologist Anesthesia Start Time Anesthesia Stop Time section (Abdomen) Jorge Gonzalez MD 05/15/2521605/15/25 0612 Events Date Time Event Comment 05/15/2025 0217 An Start Anesthesia Star t is defined as when the anesthesia provider assumed care, began anesthesia prep, remained continuously present with the patient, and excludes all time for performing the pre-anesthesia evaluation. The Pre-Anesthesia Evaluation was completed before Anesthesia Start. 021 An Start Data 0217 AN REASSESS I attest that I have identified and re-evaluated the patient immediately before the induction of anesthesia and I am satisfied that the anesthetic plan is suitable for the patient's condition and procedure. The first vital signs recorded are pre-induction. Sunny Lou MD 0227 an terra now 0234 Anesthesia Ready for Procedu re 0249 AN INCISION 0312 An Intubation 0321 an terra now 0321 Uterine Incision 0322 Baby Delivered 0324 Placenta Delivered 0608 an stop data 0612 An Stop Electronically signed by Sunny Lou MD on May 15, 2025 6:12 AM Meds Name Total phenylephrine 0.2 mg/mL (mcg/min) drip 4 ,925 mcg ceFAZolin Sodium (ANCEF) injection 3 g 3 g ondansetron (ZOFRAN ODT) ODT tab 4 mg 4 mg magnesium sulfate 40 mg/mL continuous in fusion 7.4 g Morphine PF 1 mg/mL (Intrathecal) 0.15 m g Fentanyl PF (Intrathecal) 15 mcg 0.75% Hyperbaric Bupivacaine (Intratheca l) 1.6 mL rocuronium 10 mg/mL 100 mg oxytocin (PITOCIN) 30 units in 500 mL 0. 9% NaCl infusion 890 mL carboprost (HEMABATE) injection 250 mcg 250 mcg midazolam (VERSED) injection 2 mg 2 mg tranexamic acid 1 g in 100 mL NS IV bag (premix) 1 g propofol drip mcg/kg/min 2,991.67 mg propofol (DIPRIVAN) 10 mg/mL 200 mg succinylcholine 20 mg/mL 100 mg sugammadex (BRIDION) 200mg/2mL 200 mg Bupivacaine 0.25% PF (Infiltration) 20 m L Bupivacaine liposome (Exparel) 1.3% LA i nj susp (Infiltration) 20 mL LR 2,000 mL * Agents Name O2 N2O Air Exp Sevoflurane Exp Isoflurane Exp Desflurane Ins Sevoflurane Ins Isoflurane Ins Desflurane * Blood No blood administrations on file. Lines, Drains, and Airways Type Details Placement Removal Peripheral IV 05/14/25; 1710; 18 G ; Anterior, Left; Hand 05/14/25 1710 by Elva Neely RN 05/15/25 1549 by Gerri Goodman RN Peripheral IV 05/14/25; 1710; 18 G ; Anterior, Right; Hand 05/14/25 1710 by Elva Neely RN 05/15/25 1630 by Gerri Goodman RN Urinary Drain 05/15/25; 0230; Uret hral Catheter; No; Surgical procedure 05/15/25 0230 by Shanel Field RN 05/18/25 1631 by Inpatient, Nurse ETT Placement Date: 04/23 12/14; Placement Time: 031 (created via procedure documentation); Mask Ventilation: 1; Induction Type: Intravenous; Ease of Intubation: Easy; Technique: Video laryngoscopy; Tube Size: 7 mm; VL Blade Size: MAC 3; Grade View: 1; Adjucts: Stylet; Placement Person: Resident; Attempts: 1 05/15/25 0312 by Sunny Lou MD 05/15/25 0600 by Ofelia Bey RN Peripheral IV 05/15/25; 0430; Left , Dorsal; Hand; 1; Tolerated well 05/15/25 0430 by Gerri Goodman RN 05/18/25 1631 by Inpatient, Nurse documented in this encounter Social History Tobacco Use Types Packs/Day Years Used Date Smoking Tobacco: Former Cigarettes Q uit: 09/22/2021 Smokeless Tobacco: Never Alcohol Use Standard Drinks/Week Comments Not Currently 0 (1 standard drink = 0.6 oz pur e alcohol) [place] Depression Scale Answer Date Recorded [place] Depression Scale Total 3 05/16/2025 The thought [...] Answer Date Recorded Do you have housing? (Evein g is defined as stable permanent housing and does not include staying outside in a car, in a tent, in an abandoned building, in an overnight intermediate, or couch-surfing.) Yes 05/14/2025 Are you worried [...] ex-partner? Patient unable to answer 05/14/2025 Comments Yes Sex and Gender Information Value Date Recorded Sex Assigned at Not on file Legal Sex Female 4:15 AM SH[employer] CRE[employer] Gender Identity Not on file Sexual Orientation Not on file documented as of this encounter OR Notes * Anesthesia Postprocedure Evaluation - Annmarie Augustin MD - 05/16/2025 10:17 AM CDT Patient: Kami R Sheets Procedure: Procedure(s): section Cystoscopy Anesthesia Type: Epidural, Spinal, General Note: Disposition: Admission Postop Pain Control: Uneventful Sign Out: Well controlled pain PONV: No Neuro/Psych: Uneventful Sign Out: Acceptable/Baseline neuro status Airway/Respiratory: Uneventful Sign Out: Acceptable/Baseline resp. status CV/Hemodynamics: Uneventful Sign Out: Acceptable CV status; No obvious hypovolemia; No obvious fluid overload Other NRE: NONE DID A NON-ROUTINE EVENT OCCUR? YES Event details/Postop Comments: PPH Bladder Injury Last vitals: Vitals Value Taken Time BP 129/90 05/15/25 07:03 Temp 36.9 ??C (98.4 ??F) 05/15/25 07:00 Pulse 100 05/15/25 07:08 Resp 23 05/15/25 07:08 SpO2 98 % 05/15/25 07:08 Vitals shown include unfiled device data. Electronically Signed By: Annmarie Peña MD May 16, 2025 10:17 AM * Anesthesia Procedure Notes - Sunny Lou MD - 05/15/2025 6:13 AM CDTAssociated Order(s): Peripheral/Paravertebral Block TAP Procedure Note Pre-Procedure Staff - Anesthesiologist: Jorge Gonzalez MD Resident/Fellow: Sunny Lou MD Performed By: resident Location: pre-op Pre-Anesthestic Checklist: patient identified, IV checked, risks and benefits discussed, informed consent, monitors and equipment checked, pre-op evaluation, at physician/surgeon's request and post-op pain management Timeout: Correct Patient: Yes Correct Procedure: Yes Correct Site: Yes Correct Position: Yes Correct Laterality: Yes Procedure Documentation Procedure: TAP Laterality: bilateral Patient Position: supine Skin prep: Chloraprep Needle Type: short bevel Needle Gauge: 21. Needle Length (millimeters): 110 Ultrasound guided 1. Ultrasound was used to identify targeted nerve, plexus, vascular marker, or fascial plane and place a needle adjacent to it in real-time. 2. Ultrasound was used to visualize the spread of anesthetic in close proximity to the above referenced structure. 3. A permanent image is entered into the patient's record. 4. The visualized anatomic structures appeared normal. 5. There were no apparent abnormal pathologic findings. Assessment/Narrative The placement was negative for: blood aspirated, painful injection and site bleeding Paresthesias: No. Bolus given via needle. no blood aspirated via catheter. Secured via. Insertion/Infusion Method: Single Shot Complications: none Medication(s) Administered Bupivacaine 0.25% PF (Infiltration) - Infiltration 20 mL - 05/15/2025 6:00:00 AM Bupivacaine liposome (Exparel) 1.3% LA inj susp (Infiltration) - Infiltration 20 mL - 05/15/2025 6:00:00 AM FOR [facility] ([facility]) ONLY: Pain Team Contact information: please page the Pain Team Via [employer]Search Pain. During daytime hours, please page the attending first. At night please page the resident first. * Anesthesia Procedure Notes - Sunny Lou MD - 05/15/2025 5:19 AM CDTAssociated Order(s): Airway Airway Patient location during procedure: OR Procedure Start/Stop Times: 05/15/2025 3:12 AM Staff - Anesthesiologist: Jorge Gonzalez MD Resident/Fellow: Sunny Lou MD Performed By: resident and with residents Procedure performed by resident/fellow/DISPLAY DECORATOR in presence of a teaching physician. Consent for Airway Urgency: emergent Indications and Patient Condition Indications for airway management: godfrey-procedural Induction type:intravenous Mask difficulty assessment: 1 - vent by mask Final Airway Details Final airway type: endotracheal airway Successful airway: ETT - single Endotracheal Airway Details ETT size (mm): 7.0 Cuffed: yes Successful intubation technique: video laryngoscopy VL Blade Size: MAC 3 Grade View of Cords: 1 Adjucts: stylet Position: Right Measured from: gums/teeth Secured at (cm): 24 Bite block used: Soft Post intubation assessment Placement verified by: capnometry, equal breath sounds and chest rise Number of attempts at approach: 1 Number of other approaches attempted: 0 Secured with: tape Ease of procedure: easy Dentition: Unchanged Medication(s) Administered Medication Administration Time: 05/15/2025 3:12 AM * Anesthesia Procedure Notes - Sunny Lou MD - 05/15/2025 2:35 AM CDTAssociated Order(s): Spinal Block Intrathecal injection Procedure Note Pre-Procedure Staff - Anesthesiologist: Jorge Gonzalez MD Resident/Fellow: Sunny Lou MD Performed By: resident and with residents Procedure performed by resident/fellow/DISPLAY DECORATOR in presence of a teaching physician. Location: OR Pre-Anesthestic Checklist: patient identified, IV checked, risks and benefits discussed, informed consent, monitors and equipment checked, pre-op evaluation, at physician/surgeon's request and post-op pain management Timeout: Correct Patient: Yes Correct Procedure: Yes Correct Site: Yes Correct Position: Yes Procedure Documentation Procedure: intrathecal injection Patient Position: sitting Skin prep: Chloraprep Insertion Site: L3-4. (midline approach). Needle Gauge: 25. Needle Length (Inches): 3.5 Spinal Needle Type: Pencan Introducer used Introducer: 20 G # of attempts: 1 and # of redirects: 2 Assessment/Narrative Paresthesias: No. CSF fluid: clear. Opening pressure was cmH2O while Sitting. Medication(s) Administered 0.75% Hyperbaric Bupivacaine (Intrathecal) - Intrathecal 1.6 mL - 05/15/2025 2:26:00 AM Morphine PF 1 mg/mL (Intrathecal) - Intrathecal 0.15 mg - 05/15/2025 2:26:00 AM Fentanyl PF (Intrathecal) - Intrathecal 15 mcg - 05/15/2025 2:26:00 AM FOR [facility] ([facility]) ONLY: Pain Team Contact information: please page the Pain Team Via [employer]Search Pain. During daytime hours, please page the attending first. At night please page the resident first. * Anesthesia Preprocedure Evaluation - Jorge Gonzalez MD - 05/14/2025 5:45 PM CDT Anesthesia Pre-Procedure Evaluation Patient: Kami Estes : 1995 Procedure : History reviewed. No pertinent past medical history. History reviewed. No pertinent surgical history. Allergies Allergen Reactions Ibuprofen Hives and Rash Other reaction(s): Swelling, lips/tongue Other reaction(s): Hives Kiwi Hives Kiwi Extract Anaphylaxis Levofloxacin Anxiety Causes panic attacks Pineapple Anaphylaxis Sulfa Antibiotics Anaphylaxis No Known Allergies Social History Tobacco Use Smoking status: Former Current packs/day: 0.00 Types: Cigarettes Quit date: 09/22/2021 Years since quittin.6 Smokeless tobacco: Never Substance Use Topics Alcohol use: Not Currently Wt Readings from Last 1 Encounters: 11/15/24 (!) 137.6 kg (303 lb 6.4 oz) Anesthesia Evaluation No history of anesthetic complications ROS/MED HX ENT/Pulmonary: Comment: JUAN PABLO Neurologic: Comment: Chronic headache Cardiovascular: Comment: PreE with severe features; elevated liver enzymes (+) - - PIH - - - (-) murmur METS/Exercise Tolerance: Hematologic: Musculoskeletal: GI/Hepatic: Comment: Cholelithiasis Renal/Genitourinary: Endo: (+) gestational diabetes and Insulin, Psychiatric/Substance Use: Infectious Disease: Malignancy: Other: (+) , ,previous Physical Exam Airway Mallampati: II TM distance: < 3 FB Neck ROM: full Cardiovascular (-) murmur Comments: PreE with severe features; elevated liver enzymes Dental - normal exam Pulmonary - normal exam Neurological Other Findings OUTSIDE LABS: CBC: Lab Results Component Value Date WBC 13.10 (H) 05/14/2025 WBC 7.2 02/19/2023 HGB 11.2 (L) 05/14/2025 HGB 12.5 02/19/2023 HCT 33.0 (L) 05/14/2025 HCT 39.6 02/19/2023 PLT 353 05/14/2025 PLT 389 02/19/2023 BMP: Lab Results Component Value Date NA 134 (L) 05/14/2025 NA 137 02/19/2023 POTASSIUM 4.2 05/14/2025 POTASSIUM 3.8 02/19/2023 CHLORIDE 103 05/14/2025 CHLORIDE 103 02/19/2023 CO2 14 (L) 05/14/2025 CO2 22 02/19/2023 BUN 9.3 05/14/2025 BUN 10.6 02/19/2023 CR 0.61 05/14/2025 CR 0.70 02/19/2023 GLC 117 (H) 05/14/2025 GLC 128 (H) 02/19/2023 COAGS: No results found for: PTT, INR, FIBR POC: No results found for: BGM, HCG, HCGS HEPATIC: Lab Results Component Value Date ALBUMIN 3.5 05/14/2025 PROTTOTAL 7.2 05/14/2025 ALT 82 (H) 05/14/2025 AST 41 05/14/2025 ALKPHOS 88 05/14/2025 BILITOTAL 0.2 05/14/2025 OTHER: Lab Results Component Value Date KINDRA 8.5 (L) 05/14/2025 MAG 3.8 (H) 05/14/2025 TSH 2.11 02/19/2023 Anesthesia Plan ASA Status: 3 Anesthesia Type: Epidural, Spinal, General. Consents Anesthesia Plan(s) and associated risks, benefits, and realistic alternatives discussed. Questions answered and patient/circulation representative(s) expressed understanding. - Discussed: - Discussed with: Patient, Spouse Postoperative Care Comments: Other Comments: Discussed various ways anesthesia could be involved in her including epidural, spinal, and general anesthesia. Risks of bleeding, infection, spinal cord damage, and spinal were discussed. Patient expressed understanding and all questions were answered. Sunny Lou MD I have reviewed the pertinent notes and labs in the chart from the past 30 days and (re)examined the patient. Any updates or changes from those notes are reflected in this note. Clinically Significant Risk Factors Present on Admission # Hyponatremia: Lowest Na = 134 mmol/L in last 2 days, will monitor as appropriate # Hypocalcemia: Lowest Ca = 8.5 mg/dL in last 2 days, will monitor and replace as appropriate # Drug Induced Platelet Defect: home medication list includes an antiplatelet medication # Hypertension: Noted on problem list documented in this encounter Miscellaneous Notes * Anesthesia Care Transfer Note - Sunny Lou MD - 05/15/2025 6:14 AM CDT Patient: Kami Estes Procedure: Procedure(s): section Cystoscopy Diagnosis: delivery w/o mention of indication, jan santos [O82] Diagnosis Additional Information: No value filed. Anesthesia Type: Epidural, Spinal, General Note: Oropharynx: oropharynx clear of all foreign objects and spontaneously breathing Level of Consciousness: awake Oxygen Supplementation: room air Independent Airway: airway patency satisfactory and stable Dentition: dentition unchanged Vital Signs Stable: post-procedure vital signs reviewed and stable Report to RN Given: handoff report given Patient transferred to: PACU Handoff Report: Identifed the Patient, Identified the Reponsible Provider, Reviewed the pertinent medical history, Discussed the surgical course, Reviewed Intra-OP anesthesia mangement and issues during anesthesia, Set expectations for post-procedure period and Allowed opportunity for questions andacknowledgement of understanding Vitals: Vitals Value Taken Time BP 116/99 05/15/25 06:12 Temp Pulse 117 05/15/25 06:13 Resp SpO2 99 % 05/15/25 06:13 Vitals shown include unfiled device data. Electronically Signed By: Sunny Lou MD May 15, 2025 6:14 AM documented in this encounter Plan of Treatment Upcoming Encounters Date Type Department Care Team (Late st Contact Info) Description 05/23/2025 8:00 AM CDT Appointment [facility] [address] [place] [phone] Delaney Watkins MD [address] [place] [phone] 05/23/2025 1:45 PM CDT Office Visit [facility] [place] [address] [facility] [address] [place] [phone] Annmarie Rodrigues MD [address] [place] [address] [address] [place] [address] Scheduled Procedures Name Priority Associated Diagnoses Date/Ti me SECTION Chronic hypertension with superimposed preeclampsia documented as of this encounter Procedures Procedure Name Priority Date/Time Associated Diagnosis Comments ANE PERIPHERAL/PARAVETEB RAL BLOCK Routine 05/15/2025 6:13 AM CDT ANE AIRWAY ETT PERFORMABLE Routine 05/15/2025 3:12 AM CDT ANE SPINAL BLOCK FORM Routine 05/15/2025 2:35 AM CDT documented in this encounter Results * Peripheral/Paravertebral Block (05/15/2025 6:13 AM CDT) Narrative Sunny Lou MD - 05/15/2025 6:13 AM CDT Sunny Lou MD 05/15/2025 6:14 AM TAP Procedure Note Pre-Procedure Staff - Anesthesiologist: Jorge Gonzalez MD Resident/Fellow: Sunny Lou MD Performed By: resident Location: pre-op Pre-Anesthestic Checklist: patient identified, IV checked, risks and benefits discussed, informed consent, monitors and equipment checked, pre-op evaluation, at physician/surgeon's request and post-op pain management Timeout: Correct Patient: Yes Correct Procedure: Yes Correct Site: Yes Correct Position: Yes Correct Laterality: Yes Procedure Documentation Procedure: TAP Laterality: bilateral Patient Position: supine Skin prep: Chloraprep Needle Type: short bevel Needle Gauge: 21. Needle Length (millimeters): 110 Ultrasound guided 1. Ultrasound was used to identify targeted nerve, plexus, vascular marker, or fascial plane and place a needle adjacent to it in real-time. 2. Ultrasound was used to visualize the spread of anesthetic in close proximity to the above referenced structure. 3. A permanent image is entered into the patient's record. 4. The visualized anatomic structures appeared normal. 5. There were no apparent abnormal pathologic findings. Assessment/Narrative The placement was negative for: blood aspirated, painful injection and site bleeding Paresthesias: No. Bolus given via needle. no blood aspirated via catheter. Secured via. Insertion/Infusion Method: Single Shot Complications: none Medication(s) Administered Bupivacaine 0.25% PF (Infiltration) - Infiltration 20 mL - 05/15/2025 6:00:00 AM Bupivacaine liposome (Exparel) 1.3% LA inj susp (Infiltration) - Infiltration 20 mL - 05/15/2025 6:00:00 AM FOR [facility] ([facility] ONLY: Pain Team Contact information: please page the Pain Team Via [employer]. Search Pain. During daytime hours, please page the attending first. At night please page the resident first. us Jorge Gonzalez MD [place] ANESTHESIA Final Re sult * ANE AIRWAY ETT PERFORMABLE (05/15/2025 3:12 AM CDT) Narrative Sunny Lou MD - 05/15/2025 3:12 AM CDT Sunny Lou MD 05/15/2025 5:20 AM Airway Patient location during procedure: OR Procedure Start/Stop Times: 05/15/2025 3:12 AM Staff - Anesthesiologist: Jorge Gonzalez MD Resident/Fellow: Sunny Lou MD Performed By: resident and with residents Procedure performed by resident/fellow/DISPLAY DECORATOR in presence of a teaching physician. Consent for Airway Urgency: emergent Indications and Patient Condition Indications for airway management: godfrey-procedural Induction type:intravenous Mask difficulty assessment: 1 - vent by mask Final Airway Details Final airway type: endotracheal airway Successful airway: ETT - single Endotracheal Airway Details ETT size (mm): 7.0 Cuffed: yes Successful intubation technique: video laryngoscopy VL Blade Size: MAC 3 Grade View of Cords: 1 Adjucts: stylet Position: Right Measured from: gums/teeth Secured at (cm): 24 Bite block used: Soft Post intubation assessment Placement verified by: capnometry, equal breath sounds and chest rise Number of attempts at approach: 1 Number of other approaches attempted: 0 Secured with: tape Ease of procedure: easy Dentition: Unchanged Medication(s) Administered Medication Administration Time: 05/15/2025 3:12 AM Jorge Gonzalez MD [place] ANESTHESIA Final Re sult * Spinal Block (05/15/2025 2:35 AM CDT) Narrative Sunny Lou MD - 05/15/2025 2:35 AM CDT Sunny Lou MD 05/15/2025 2:36 AM Intrathecal injection Procedure Note Pre-Procedure Staff - Anesthesiologist: Jorge Gonzalez MD Resident/Fellow: Sunny Lou MD Performed By: resident and with residents Procedure performed by resident/fellow/DISPLAY DECORATOR in presence of a teaching physician. Location: OR Pre-Anesthestic Checklist: patient identified, IV checked, risks and benefits discussed, informed consent, monitors and equipment checked, pre-op evaluation, at physician/surgeon's request and post-op pain management Timeout: Correct Patient: Yes Correct Procedure: Yes Correct Site: Yes Correct Position: Yes Procedure Documentation Procedure: intrathecal injection Patient Position: sitting Skin prep: Chloraprep Insertion Site: L3-4. (midline approach). Needle Gauge: 25. Needle Length (Inches): 3.5 Spinal Needle Type: Pencan Introducer used Introducer: 20 G # of attempts: 1 and # of redirects: 2 Assessment/Narrative Paresthesias: No. CSF fluid: clear. Opening pressure was cmH2O while Sitting. Medication(s) Administered 0.75% Hyperbaric Bupivacaine (Intrathecal) - Intrathecal 1.6 mL - 05/15/2025 2:26:00 AM Morphine PF 1 mg/mL (Intrathecal) - Intrathecal 0.15 mg - 05/15/2025 2:26:00 AM Fentanyl PF (Intrathecal) - Intrathecal 15 mcg - 05/15/2025 2:26:00 AM FOR [facility] ([facility]) ONLY: Pain Team Contact information: please page the Pain Team Via [employer] Search Pain. During daytime hours, please page the attending first. At night please page the resident first. us Jorge Gonzalez MD [place] ANESTHESIA Final Re sult documented in this encounter Visit Diagnoses Not on filedocumented in this encounter Administered Medications Inactive Administered Medications - up to 3 most recent administrations Medication Order MAR Action Action Date Dose Rate Site Bupivacaine 0.25% PF (Infiltration) Infiltration, ONCE PRN WITHIN 24 HRS, Starting on Tue05/15/25 at 0600, For 1 dose, Anesthesia Intra-op $Given 05/15/2025 6:00 AM CDT 20 mLs BUPivacaine 0.75% in dextrose 8.25% (intrathecal) (SENSORCAINE) 0.75-8.25 % injection Intrathecal, ONCE PRN WITHIN 24 HRS, Starting on Tue05/15/25 at 0226, For 1 dose, Anesthesia Intra-op $Given 05/15/2025 2:26 AM CDT 1.6 mLs BUPivacaine liposome (EXPAREL) 1.3 % LA inj susp Infiltration, ONCE PRN WITHIN 24 HRS, Starting on Tue05/15/25 at 0600, For 1 dose, Anesthesia Intra-op $Given 05/15/2025 6:00 AM CDT 20 mLs carboprost (HEMABATE) injection 250 mcg 250 mcg, Intramuscular, EVERY 15 MIN PRN, other, ONLY for uterine atony with significant bleeding POST-DELIVERY, Starting on Tue05/15/25 at 0130, Notify provider IF uterine atony and clarify with provider medication preference. Administer only if directed by provider. Give with caution in patients with asthma, active pulmonary, hepatic, renal or cardiovascular disease., Pre-procedure $Given 05/15/2025 3:26 AM CDT 250 mcg ceFAZolin Sodium (ANCEF) injection 3 g Routine, 3 g, Intravenous, SEE ADMIN INSTRUCTIONS, Starting on Tue05/15/25 at 0130, Give every 4 hours while patient in surgery, starting 4 hours after pre-op dose. DO NOT GIVE intra-op dose if CrCl less than 10 mL/min (on dialysis). If CrCl less than 50 mL/min, double the time interval between doses. , Indications: Perioperative Pharmacoprophylaxis, Pre-procedureIndications:Perioper ative Pharmacoprophylaxis $Given 05/15/2025 2:28 AM CDT 3 g fentaNYL (PF) (SUBLIMAZE) injection Intrathecal, ONCE PRN WITHIN 24 HRS, Administer over 3-5 Minutes, Starting on Tue05/15/25 at 0226, For 1 dose, Anesthesia Intra-op $Given 05/15/2025 2:26 AM CDT 15 mcg lactated ringers infusion Intravenous, CONTINUOUS PRN, Anesthesia Intra-op, Starting on Tue05/15/25 at 0217, Until Tue05/15/25 at 0612 $New Bag 05/15/2025 2:17 AM CDT magnesium sulfate 40 mg/mL continuous infusion 2 [...] AM CDT 2 g/hr 50 mL/h r midazolam (VERSED) injection 2 mg 2 mg, Intravenous, EVERY 5 MIN PRN, seizures, If unresponsive to magnesium dosing., Starting on Tue05/14/25 at 1653, For 5 doses, Give as directed by provider. This drug may cause significant respiratory depression. Monitor respiratory status and vital signs carefully for 1 hour after each dose. $Given 05/15/2025 3:31 AM CDT 2 mg morphine (PF) (DURAMORPH) injection Intrathecal, ONCE PRN WITHIN 24 HRS, Administer over 4-5 Minutes, Starting on Tue05/15/25 at 0226, For 1 dose, Anesthesia Intra-op $Given 05/15/2025 2:26 AM CDT 0.15 mg ondansetron (ZOFRAN ODT) ODT tab 4 mg 4 mg, Oral, EVERY 6 HOURS PRN, nausea/vomiting - 2nd line, Starting on Tue05/14/25 at 1657, This is Step 2 of OB nausea [...] seconds, then swallow with saliva. Liquid not required., Antepartum $Given 05/15/2025 2:28 AM CDT 4 mg oxytocin (PITOCIN) 30 units in 500 [...] AM CDT 100 mL/hr 100 mL/ hr phenylephrine 0.2 mg/mL (mcg/min) drip Intravenous, CONTINUOUS PRN, Starting on Tue05/15/25 at 0228, Anesthesia Intra-op Rate/Dose Change 05/15/2025 3:48 AM CDT 25 mcg/min 7.5 mL/hr $New Bag 05/15/2025 2:28 AM CDT 50 mcg/min 15 mL/hr propofol (DIPRIVAN) infusion Intravenous, CONTINUOUS PRN, Starting on Tue05/15/25 at 0333, Anesthesia Intra-op Rate/Dose Change 05/15/2025 5:28 AM CDT 125 mcg/kg/min 108.525 mL/hr Rate/Dose Change 05/15/2025 4:56 AM CDT 150 mcg/kg/min 130 .23 mL/hr $New Bag 05/15/2025 3:33 AM CDT 125 mcg/kg/min 108.525 m L/hr propofol (DIPRIVAN) injection 10 mg/mL vial Intravenous, PRN, Starting on Tue05/15/25 at 0310, Anesthesia Intra-op $Given 05/15/2025 3:10 AM CDT 200 mg rocuronium injection Intravenous, PRN, Starting on Tue05/15/25 at 0321, Anesthesia Intra-op $Given 05/15/2025 5:02 AM CDT 20 mg $Given 05/15/2025 4:30 AM CDT 20 mg $Given 05/15/2025 4:02 AM CDT 20 mg succinylcholine (ANECTINE) injection Intravenous, PRN, Starting on Tue05/15/25 at 0311, Anesthesia Intra-op $Given 05/15/2025 3:11 AM CDT 100 mg sugammadex (BRIDION) injection Intravenous, PRN, Starting on Tue05/15/25 at 0557, Anesthesia Intra-op $Given 05/15/2025 5:57 AM CDT 200 mg tranexamic acid 1 g in 100 mL NS IV bag (premix) 1 g, Intravenous, Administer over 10 Minutes, EVERY 30 MIN PRN, Post- hemorrhage (PPH), Starting on Tue05/15/25 at 0130, For 2 doses, Provider consultation REQUIRED and [...] 1 gram to be infused over 10 minutes., Pre-procedure $Given 05/15/2025 3:28 AM CDT 1 g documented in this encounter Care Teams Banbury Mill Operator Relationship Specialty Start Date End Date System, Provider Not In PCP - General Clinic 02/19/23 Daisy Beebe PA-C 3033 [facility] [address] [place], [place] [address] Assigned PCP 08/25/22 Nilam Beal MD 6[address] [facility] [address] [place], [place] [address] Cardiovascular Disease 02/21/23 Ofelia Macedo MD [address], [place] [id number] Assigned Pediatric Specialist Provider 03/13/25 documented as of this encounter
--- OUTSIDE RECORDS SUMMARY | 2025-05-15 05:50 | XMS_ITS | Encounter Summary ---
Author Organization [place] Address [address] [place] [address]. [place] [address] Care Team Providers Care Greenhouse Transplanter Name Role Phone Daisy Beebe PA-C Unavailable [phone] System, Provider Not In Primary Care Provider Un available Nilam Beal MD Unavailable Ofelia Macedo MD Unavailable Encounter Details Date Type Department Care Team (Late st Contact Info) Description 05/15/2025 5:50 AM CDT Ancillary Procedure [facility] Imaging [address] [place] [address] Jorge Gonzalez MD 420 [facility] 294 [place] [address] Social History Tobacco Use Types Packs/Day Years Used Date Smoking Tobacco: Former Cigarettes Q uit: 09/22/2021 Smokeless Tobacco: Never Alcohol Use Standard Drinks/Week Comments Not Currently 0 (1 standard drink = 0.6 oz pur e alcohol) [place] Depression Scale Answer Date Recorded [place] Depression Scale Total 3 05/16/2025 The thought [...] Date Recorded Do you have housing? 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 [place] [address] 3rd Floor,[address] [place] Professional Bldg [facility] 88 [place] [phone] Annmarie Rodrigues MD [address] [place] [address] 300 [place], [place] [address] Pending Results Name Type Priority Associated Diagnoses Date /Time POC US Guidance Needle Placement Imaging Routine 05/15/2025 5:47 AM CDT Scheduled Procedures Name Priority Associated Diagnoses Date/Ti me SECTION Chronic hypertension with superimposed preeclampsia documented as of this encounter Visit Diagnoses Not on filedocumented in this encounter Care Teams Greenhouse Transplanter Relationship Specialty Start Date End Date System, Provider Not In PCP - General Clinic 02/19/23 Daisy Beebe PA-C 3033 [facility] 275 [place] [address] Assigned PCP 08/25/22 Nilam Beal MD 6405 [facility] [address] [place] [address] Cardiovascular Disease 02/21/23 Ofelia Macedo MD [address] [place] [address] [place] [address] Assigned Pediatric Specialist Provider 03/13/25 documented as of this encounter
--- OUTSIDE RECORDS SUMMARY | 2025-05-20 15:39 | XMS_ITS | Encounter Summary ---
Author Organization [place] Address [address] [facility] [place] [address] Care Team Providers Care Restaurant Manager Name Role Phone Daisy Beebe PA-C Unavailable [phone] System, Provider Not In Primary Care Provider Un available Nilam Beal MD Unavailable Ofelia Macedo MD Unavailable [phone] Encounter Details Date Type Department Care Team (Late st Contact Info) Description 05/20/2025 Telephone [facility] Women's [address]rd Floor,[address] [place] Professional Bldg [facility] 88 [place] [phone] Education, [facility] Nurse Social History Tobacco Use Types Packs/Day Years Used Date Smoking Tobacco: Former Cigarettes Q uit: 09/22/2021 Smokeless Tobacco: Never Alcohol Use Standard Drinks/Week Comments Not Currently 0 (1 standard drink = 0.6 oz pur e alcohol) [place] Depression Scale Answer Date Recorded [place] Depression Scale Total 3 05/16/2025 The thought [...] in an abandoned building, in an overnight fdc, or couch-surfing.) Yes 05/14/2025 Are you worried [...] on file Legal Sex Female 4:15 AM PAPER SPOOLER Gender Identity Not on file Sexual Orientation Not on file documented as of this encounter Miscellaneous Notes * Telephone Encounter - Jessi Lu RN - 05/20/2025 1:[address] Merrill called back- patient to go to ED for evaluation. Patient called and directed to ED. Pt in agreement with plan of care. * Telephone Encounter - Jessi Lu RN - 05/20/2025 1:17 PM CDT Received call from Iwona at [facility] and she stated the patient's called her and stated there was a blood clot and mucous in the zavala bag and they needed to know what to do. Called patient back. Kami states that she is uncomfortable, experiencing 3/10 pain at urethral opening that is sharp and shooting and 3/10 abdominal pain that is aching with bloody mucous in the zavala bag. She delivered on 05/15/25 with a bladder injury r/t C/S. Paged Dr. Merrill at 1:10 pm. Awaiting response. documented in this encounter Plan of Treatment Upcoming Encounters Date Type Department Care Team (Late st Contact Info) Description 05/23/2025 8:00 AM CDT Appointment [facility] Imaging [address] [place] [address] Delaney Watkins MD [address] [facility] [address] [place], [place] [address] 05/23/2025 1:45 PM CDT Office Visit [facility] [place] [address] [place] Professional Bldg [facility] 88 [place] [phone] Annmarie Rodrigues MD [address] [place], [place] [address] Scheduled Procedures Name Priority Associated Diagnoses Date/Ti me SECTION Chronic hypertension with superimposed preeclampsia documented as of this encounter Goals Goal Patient Goal Type Associated Problems Recent Progress Patient-Stated? Author MACK ECC OBHTN WELCOME GOAL Care Plan MACK ECC OBHTN WELCOME Problem No Shannon Mustafa MD Home Observation of Elevated Blood Pressure (HOPE-BP) program Care Plan Home Observation of Elevated Blood Pressure (HOPE-BP) program No Wade Rubin documented as of this encounter Visit Diagnoses Not on filedocumented in this encounter Additional Health Concerns Active Problems Noted Date Diagnosed Date MACK ASCENCIO OBHTN WELCOME Problem 05/18/2025 Home Observation of Postpart um Elevated Blood Pressure (HOPE-BP) program 05/18/2025 documented as of this encounter Care Teams Restaurant Manager Relationship Specialty Start Date End Date System, Provider Not In PCP - General Clinic 02/19/23 Daisy Beebe PA-C [facility] [facility] 275 [place] [address] Assigned PCP 08/25/22 Nilam Beal MD 6405 [facility] [address] [place] [address] Cardiovascular Disease 02/21/23 Ofelia Macedo MD [address] [place] [address] Assigned Pediatric Specialist Provider 03/13/25 documented as of this encounter
--- OUTSIDE RECORDS SUMMARY | 2025-05-20 15:39 | XMS_ITS | Encounter Summary ---
Author Organization [place] Address [address] [facility] [place] [address] Care Team Providers Care Administrative Appeals Tribunal Member Name Role Phone Daisy Beebe PA-C Unavailable [phone] System, Provider Not In Primary Care Provider Un available Nilam Beal MD Unavailable Ofelia Macedo MD Unavailable [phone] Encounter Details Date Type Department Care Team (Late st Contact Info) Description 05/17/2025 Telephone [facility] Women's [address] [place] Professional Bldg [facility] [address] [place] [phone] Education, [facility] Obgyn Nurse Social History Tobacco Use Types Packs/Day Years Used Date Smoking Tobacco: Former Cigarettes Q uit: 09/22/2021 Smokeless Tobacco: Never Alcohol Use Standard Drinks/Week Comments Not Currently 0 (1 standard drink = 0.6 oz pur e alcohol) [place] Depression Scale Answer Date Recorded [place] Depression Scale Total 3 05/16/2025 The thought [...] in an abandoned building, in an overnight skilled nursing, or couch-surfing.) Yes 05/14/2025 Are you worried [...] on file Legal Sex Female 4:15 AM INTERNET SOURCER Gender Identity Not on file Sexual Orientation Not on file documented as of this encounter Miscellaneous Notes * Telephone Encounter - Jessi Lu RN - 05/17/2025 1:14 PM CDT Images from the original note were not included. Awaiting recommendations from Dr. Lindo. Jessi Lu RN Chandra, Shruthi, MD Replies will be sent to P [facility] Question about note at the bottom: Does imaging need to be reviewed before the zavala is removed. How long between imaging and the zavala removal should the removal be scheduled- okay to schedule w/ RN's or should we schedule with an MD? Thanks. ZEN Bowen Previous Messages ----- Message ----- From: Bonny Thomas Sent: 05/17/2025 12:01 PM CDT To: [facility] Rn-[facility] Subject: RE: Zavala Removal I can schedule her for the zavala removal for Tuesday morning, just wanting to make sure someone is coordinating the cystogram ----- Message ----- From: Jessi Lu RN Sent: 05/17/2025 11:21 AM CDT [facility] Subject: FW: Zavala Removal Hi y'all, Could you please schedule patient for zavala removal w/ Resident gasoline catalyst operator on 05/22? Thank you. Jessi ----- Message ----- From: Delaney Watkins MD Sent: 05/16/2025 4:20 PM CDT To: Annmarie Rodrigues MD; [facility] Subject: Zavala Removal Hi all, This patient is admitted for a c section that was complicated by a bladder injury. She will have her zavala in for 7 days post op and then will have a cystogram prior to zavala removal. Can we coordinate this such that she could get her cystogram the same day as a clinic appt for the zavala removal? POD#7 would be 05/22 when we would be looking at that. Delaney Spain documented in this encounter Plan of Treatment Upcoming Encounters Date Type Department Care Team (Late st Contact Info) Description 05/23/2025 8:00 AM CDT Appointment [facility] Imaging [address] [place] [phone] Delaney Watkins MD [address] [place] [address] 05/23/2025 1:45 PM CDT Office Visit [facility] Women's [address] [place] Professional Bldg [facility] 88 [place] [phone] Annmarie Rodrigues MD [address] [place] [address] [address] [place], [place] [address] Scheduled Procedures Name Priority Associated Diagnoses Date/Ti me SECTION Chronic hypertension with superimposed preeclampsia documented as of this encounter Visit Diagnoses Not on filedocumented in this encounter Care Teams Administrative Appeals Tribunal Member Relationship Specialty Start Date End Date System, Provider Not In PCP - General Clinic 02/19/23 Daisy Beebe PA-C [address] [facility] [address] [place] [address] Assigned PCP 08/25/22 Nilam Beal MD 6[address] [facility] [address] [place] [address] Cardiovascular Disease 02/21/23 Ofelia Macedo MD [address] [place] [address] Assigned Pediatric Specialist Provider 03/13/25 documented as of this encounter
--- OUTSIDE RECORDS SUMMARY | 2025-05-20 15:40 | XMS_ITS | Clinical Summary ---
Author Organization [facility] Address [address] [place] [address] Care Team Providers Care Imagery Intelligence Name Role Phone Elsewhere, Pcp Primary Care Provider Unavailabl e Source Comments Patient records contain information from all sites at [facility]. For routine questions regarding patient records, call [phone] during business hours, M-F 8:00 AM - 5:00 PM Central Time. Record requests for emergency care only can be directed to [phone] at any time.[facility] Allergies Active Allergy Reactions Criticality Noted Date [...] Encounters Date Type Department Care Team Description 04/16/2025 10:30 AM CDT External Outreach Division of Nephrology and Hypertension in [place], [place] [address] [place] [address] Geena Spears M.D., Ph.D. Hypertension Essential Primary (Primary Dx); Proteinuria 04/11/2025 Orders Only Division of Nephrology and Hypertension in [place], [place] [address] [place] [address] External, Ordering ProviderYogesh 04/11/2025 Orders Only Division of Nephrology and Hypertension in [place], [place] [address] [place] [address] External, Ordering ProviderYogesh 04/11/2025 Orders Only Division of Nephrology and Hypertension in [place], [place] [address] [place] [address] External, Ordering ProviderYogesh 03/12/2025 2:30 PM CDT Virtual Visit Division of Nephrology and Hypertension in [place], [place] [address] [place] [address] Geena Spears M.D., Ph.D. Proteinuria (Primary Dx); [...] your living situation today? I have a [facility] place to live 07/27/2023 Comments Unknown Sex and Gender Information Value Date Recorded Sex Assigned at Female 07/27/2023 7:49 AM PRODUCTION BROACHING MACHINE OPERATOR Legal Sex Female 10:27 AM PRODUCTION BROACHING MACHINE OPERATOR Gender Identity Female 07/27/2023 7:49 AM PRODUCTION BROACHING MACHINE OPERATOR Sexual Orientation Bisexual 07/27/2023 7: 49 AM PRODUCTION BROACHING MACHINE OPERATOR Last Filed Vital Signs Vital Sign Reading Time Taken Comments Blood Pressure 116/72 06/01/2024 5:30 PM CDT Pulse 85 06/01/2024 5:30 PM CDT Temperature 36.1 C (97 F) 09/05/2023 1:32 PM PRODUCTION BROACHING MACHINE OPERATOR Respiratory Rate 28 06/01/2024 5:30 PM CDT [...] Additional history exists HPV Vaccines Completed 10/31/2008, 1110/2007, 04/04/2008 Varicella Vaccines Completed 04/14/2011, 08/27/2002 COVID-19 Vaccine Completed 05/30/2024, 06/2023, 09/25/2021, Additional history exists Hepatitis B Vaccines Completed 01/18/2025, 01/18/1995, 1993, Additional history exists Pneumococcal vaccine (0-49 years) Aged Out No longer eligible based on patient's age to complete this topic Medical Devices Implanted Type Area Hat Conditioner Device Identifier Shelf Expiration Date Model / Serial / Lot Hardware E.G. Pins/Screws/Milo s Hardware e.g. pins/screws/milo s Right: Arm Intrauterine Device Intrauterine Device Uterus Description:Mirena Procedures Procedure Name Priority Date/Time Associated Diagnosis Comments EXT OUTSIDE LAB TESTS Routine 04/11/2025 12:47 PM CDT PROTEIN/CREATININE RATIO, RANDOM, URINE Routine 04/11/2025 12:47 PM CDT EXTP URINALYSIS WITH MICROSCOPY, URINE Routine 04/11/2025 12:47 PM CDT CBC WITH DIFFERENTIAL, B Routine 04/11/2025 12:45 PM CDT from Last 3 Months Results * EXT Outside Lab Tests (04/11/2025 12:47 PM CDT) EXT Miscellaneous See scanned report [facility] 04/11/2025 12:4 7 PM CDT Narrative [facility] - 04/15/2025 9:35 AM CDT External results verified in Extract by Iwona Hay on 04/15/2025 at 09:33 AM. us Ordering Provider External Yogesh LAB BLOOD NON AD D-ON Final Result [facility] [address] [place] [address], [facility] [phone] * (ABNORMAL) EXT Urinalysis with Microscopy, Urine (04/11/2025 12:47 PM CDT) EXT Color Yellow Yellow [facility] EXT Appearance, Urine Clear Clear [facility] EXT Glucose Qualitative, Urine Negative Negative [facility] EXT Bilirubin, Urine Negative Negative [facility] EXT Ketones, POCT, Urine Negative Negative [facility] EXT Specific [place], POCT, Urine 1.010 1.000 - 1.030 [facility] EXT Blood, Urine Trace(A) Negative [facility] EXT pH, Random, Urine 6.5 5.0 - 8.5 [facility] EXT Protein, Urine Negative Negative [facility] EXT Urobilinogen, Urine 0.2 0.2 - 1.0 [facility] EXT Nitrite, Urine Negative Negative [facility] EXT Leukocyte Esterase, Urine Negative Negative [facility] EXT Red Blood Cells, U 0-2 0 - 2 [facility] EXT Squamous Cells Few None-Few [facility] EXT Bacteria Few(A) None [facility] EXT White Blood Cells, U 0-2 0 - 5 [facility] 04/11/2025 12:4 7 PM CDT Narrative [facility] - 04/11/2025 2:32 PM CDT Source result document attached to Order Number [id number] (CBC WITH DIFFERENTIAL, B) dated 04/11/2025. External results verified in Extract by Iwona Hay on 04/11/2025 at 02:29 PM. us Ordering Provider External Yogesh LAB URINE ORDERA LKAISHA Final Result [facility] [address] [place] [address] * (ABNORMAL) Protein/Creatinine Ratio, Random, Urine (04/11/2025 12:47 PM CDT) EXT Creatinine, U 41.1 mg/dL [facility] EXT Protein, Total, Random, U 16 mg/dL [facility] Ext Protein/Creati nine ratio, Urine 0.39(H) 0 - 0.19 [facility] 04/11/2025 12:4 7 PM CDT [facility] - 04/12/2025 7:19 AM CDT External results verified in Extract by Iwona Hay on 04/12/2025 at 07:16 AM. Ordering Provider External Yogesh LAB URINE ORDERA BLES Final Result Performing Organization Address [facility]/ZIP Co de Phone Number [facility] [address] [place] [address], [facility] [phone] * (ABNORMAL) CBC with Differential, Blood (04/11/2025 12:45 PM CDT) EXT Leukocytes 10.88 4.50 - 11.00 K/uL [facility] EXT RBC 3.83(L) 4.00 - 5.20 m/uL [facility] EXT Hemoglobin 10.5(L) 12.0 - 16.0 gm/dL [facility] EXT Hematocrit 31.5(L) 33.0 - 51.0 % [facility] EXT MCV 82 80 - 100 fL [facility] EXT Platelet Count 330 140 - 440 K/uL [facility] 04/11/2025 12:4 5 PM CDT [facility] - 04/11/2025 2:32 PM CDT External results verified in Extract by Iwona Hay on 04/11/2025 at 02:29 PM. us Ordering Provider Beckie Zuñiga LAB BLOOD ADD-ON Final Result Performing Organization Address City/[facility]/ZIP Co de Phone Number [facility] [address] [place] [address], [facility] [phone] from Last 3 Months Insurance [facility] [place] [address] [facility] SHIELD Care Teams Imagery Intelligence Relationship Specialty Start Date End Date Elsewhere, Pcp PCP - General Internal Medicine 03/01/24
--- OUTSIDE RECORDS SUMMARY | 2025-05-20 15:40 | XMS_ITS | Encounter Summary ---
Author Organization [place] Address [address] [place] [address]. [place] [address] Care Team Providers Care Smoke Tester Name Role Phone Daisy Beebe PA-C Unavailable [phone] System, Provider Not In Primary Care Provider Un available Nilam Beal MD Unavailable Ofelia Macedo MD Unavailable Encounter Details Date Type Department Care Team (Latest Contact Info) Description 04/10/2025 Travel Social History Tobacco Use Types Packs/Day Years Used Date Smoking Tobacco: Former Cigarettes Q uit: 09/22/2021 Smokeless Tobacco: Never Adolescent Education Answer Date Record ed Getting School Help Needed Not on file 05/23 Comments Yes Sex and Gender Information Value Date Recorded Sex Assigned at Not on file Legal Sex Female 4:15 AM PROTECTION ANALYST Gender Identity Not on file Sexual Orientation Not on file documented as of this encounter Plan of Treatment Upcoming Encounters Date Type Department Care Team (Late st Contact Info) Description 05/23/2025 8:00 AM CDT Appointment [facility] Imaging [address] [place] [address] Delaney Watkins MD [address] [place], [place] [address] 05/23/2025 1:45 PM CDT Office Visit [facility] [place] [address] [place] Professional Bldg [facility] [address] [place] [phone] Annmarie Rodrigues MD [address] [place], [place] [address] Scheduled Procedures Name Priority Associated Diagnoses Date/Ti me SECTION Chronic hypertension with superimposed preeclampsia documented as of this encounter Visit Diagnoses Not on filedocumented in this encounter Care Teams Smoke Tester Relationship Specialty Start Date End Date System, Provider Not In PCP - General Clinic 02/19/23 Daisy Beebe PA-C [address] [place], [place] [address] Assigned PCP 08/25/22 Nilam Beal MD [address] [facility] [address] [place], [place] [address] Cardiovascular Disease 02/21/23 Ofelia Macedo MD [address] [place] [address] Assigned Pediatric Specialist Provider 03/13/25 documented as of this encounter
--- OUTSIDE RECORDS SUMMARY | 2025-05-20 15:40 | XMS_ITS | Encounter Summary ---
Author Organization [facility] Address [address] [place] [address] Care Team Providers Care Rn Research Name Role Phone Kaitlin Hunter MD Primary Care Provider Serena Temple MD Unavailable [phone] Encounter Details Date Type Department Care Team (Latest Contact Info) Description 10/16/2021 Prep For Procedure [facility] [place] [address] [facility] [address] [place], [place] [id number] [place] [address] [place] [address] [address] [place], [place] [id number] Syncope, unspecified syncope type (Primary Dx) Social [...] Sex Assigned at Female 07/02/2021 11:07 AM PACKING MACHINE CAN FEEDER Legal Sex Female 4:50 PM CDT Gender Identity Female 07/02/2021 11:07 AM PACKING MACHINE CAN FEEDER Sexual Orientation Bisexual 07/02/2021 11 :07 AM PACKING MACHINE CAN FEEDER COVID-19 Exposure Response Date Recorded In the last month, have you been in contact with someone who was confirmed or suspected to have Coronavirus / COVID-19? No / Unsure 10/19/2021 1:16 PM PACKING MACHINE CAN FEEDER documented as of this encounter Plan of Treatment Not on file documented as of this encounter Visit Diagnoses Diagnosis Syncope, unspecified syncope type- Primary documented in this encounter Additional Health Concerns Infection Onset Date Last Indicated Resolved Time COVID-19 01/27/2022 01/27/2022 02/26/2022 2:49 AM CDT documented as of this encounter Care Teams Rn Research Relationship Specialty Start Date End Date Kaitlin Hunter MD [address] [place] [address] PCP - General Family Medicine 10/23/21 Serena Temple MD [address] [place] [address] Neurology 10/23/21 documented as of this encounter
--- OUTSIDE RECORDS SUMMARY | 2025-05-20 15:40 | XMS_ITS | Clinical Summary ---
Author Organization [facility] Address [address] [place] [address] Care Team Providers Care Test Automation Architect Name Role Phone Светлана Malik Primary Care Provider [phone] Allergies Active Allergy Reactions Criticality Noted Date [...] weeks. 30 g 1 5 Active labetaloL (TRANDATE) 100 mg tabletIndications: Sinus tachycardia,Palpit ations Take 1 Tablet (100 mg) by mouth three times daily. 180 Tablet 1 5 Active Active Problems Problem Noted Date Diagnosed Date Bipolar affective disorder, remission status uns pecified 09/05/2024 [facility], Encounter for preconception consultation Overview (08/07/2024): Caron R Sheets : 1995 [facility] PRECONCEPTION CONSULTATION ON REFERRING PHYSICIAN/CLINIC LOCATION/FAX #/LAST UPDATE: Test Automation Architect Role and Specialty Contact Info Address Start End Comments Светлана Malik DO General (Family Practice) [address] [facility] [address] 05/24/2023 - - Primary MD approves scheduling of recommended ultrasounds/testing: Yes REASON FOR CONSULT: currently on zepbound, would like within a year , BMI 44 , Hx of cerebral aneurysm 06/2023- follows at [facility] Everywhere TODAY'S APPOINTMENT: MD Consultation PRIMARY DIAGNOSIS: 29 y.o. Anxiety, depression 2016 C/S BMI 44 SPECIALISTS/CONSULTS: Dr Naun Lama Neurology at [facility] 03/05/24 Include: Specialty MD Clinic Name Phone# [...] from 06/26/2023; following with neurology at [facility] - Visit 03/05/24, stated f/u was [...] currently taking Effexor and managed by Psychiatrist ([facility]) -Obese BMI is 42 with HgbA1c is normal (5.0) on 10/19/16 (7wks) LAST PAP SMEAR: 05/2016 Tobacco abuse 06/18/2015 05/23/2023 Tobacco use disorder 06/18/2015 023 Encounters Date Type Department Care Team Description 04/03/2025 1:00 PM CDT Ancillary Procedure [facility] [address] [place] [address] 04/03/2025 Travel 04/01/2025 8:30 AM CDT Office Visit [facility] Akosua Osorio [address] [place] [address] [address] [place] [address] Andrew Petersen MD CV General Cardiology New (FILIBERTO/NEW PT- Tachycardia, -*schedule w/gen card per Maternal/Tobin /Team, records in chart- Ref by Sue Berumen MD /) 03/31/2025 Travel 03/20/2025 Transcribe Orders [facility] [place] [facility] [place] [address] [place] [address] Sue Berumen MD 03/12/2025 Orders Only [facility] Scanner 1 scan: (1-Ord) INCOMING RECORDS-[facility], 03/12/2025 03/12/2025 Orders Only [facility] Scanner 1 scan: (1-Ord) INCOMING RECORDS-, [facility], 03/12/2025 03/12/2025 Transcribe Orders [facility] [facility] [place] [address] [place] [address] Sue Berumen MD from Last 3 Months Immunizations Immunization Administration [...] cancer Paternal Grandmother ADD / ADHD Son [place] Autism Son Nathan Relation Name Status Comments [...] on file Legal Sex Female 7:12 AM CLAY DIGGER Gender Identity Not on file Sexual Orientation Not on file Occupation Industry Job Start Date Job End Date works in [employer] Not on file Not on file Not [...] Estimated Date of Delivery 12/06/2024 - Present (05/20/2025) 06/30/2025 (set by Soniya Kennedy, RN on [...] alone Communication Method: Patient is active on [email or web address] and has been instructed that results/communications will be made via [email or web address] If a phone call is needed, the [...] 100 bpm. Referral to cardio-obstetrics program at [place] could be considered if adequate control is not achieved. - anticipate that HR will increase physiologically with changes 3. 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 - Symptoms include itchy, flaky skin on the bottom of the foot, suggesting tinea pedis - Previous treatments with [id number] antifungal spray and cream were ineffective. - will trial topical ketoconazole 2% BID x 4 weeks. If symptoms fail to improve, encouraged follow up. 31 minutes spent in chart review, [id number] with patient, and documentation on day of [...] Sign Reading Time Taken Comments Blood Pressure 124/60 04/01/2025 8:25 AM CDT Pulse 101 04/01/2025 8:25 AM CDT Temperature 36.3 C (97.3 F) 12/02/2024 1:54 PM CDT Respiratory Rate 16 12/02/2024 1:54 PM CDT Oxygen Saturation 98% 04/01/2025 8:25 AM CDT Inhaled Oxygen Concentration - - Weight 147.8 kg (325 lb 12.8 oz) 04/01/2025 8:25 AM CDT Height 175.3 cm (5' 9.02) 04/01/2025 8:25 AM CD T Body Mass Index 48.09 04/01/2025 8:25 AM CDT Plan of Treatment Upcoming Encounters Date Type Department Care Team (Late st Contact Info) Description 05/29/2025 9:35 AM CDT Office Visit [facility] [address] [place] [address] Светлана Malik DO [address] [place] [address] Health Maintenance Due Date Last Done Comments Influenza Vaccine (#1) 2025 , 05/17/2023, 05/15/2021, Additional history exists Depression screening for age 12+ 05/03/2025 05/03/2024, 04/30/2024, 05/23/2023, Additional history exists RSV vaccine for adults or (1 - Risk 1-dose series) 05/05/2025 BMI (ht and wt on same day) for age 18+ 04/01/2026 04/01/2025, 03/29/2024, 01/13/2024, Additional history exists Pap test for age 21-65 05/23/2028 , 05/23/2023, 06/18/2015, Additional history exists Tetanus booster 05/17/2033 05/17/2023, 09/23, 10/14/2020, Additional history exists Hepatitis B series for 19+ Completed 01/18, 01/18/1995, 1993, Additional history exists HPV series for age 9-45 Completed 11/01/19 09, 10/31/2008 (Completed outside of [facility]), 06/24/2008, Additional history exists Hepatitis C screening for age 18-79 Completed 06/16/2015 HIV for age 15-65 Completed 10/18/2016, 06/16/2015 COVID-19 vaccine series Completed 05/30/20 24, 06/01/2023, 09/25/2021, Additional history exists Pneumococcal series for age 6-49 Aged Out No longer eligible based on patient's age to complete this topic Procedures Procedure Name Priority Date/Time Associated Diagnosis Comments ECHO TTE COMPLETE WO CONTRAST Routine 04/03/2025 1:27 PM CDT Sinus tachycardia EKG 12 LEAD Routine 04/01/2025 7:31 AM CDT Sinus tachycardia EXTENDED HOLTER Routine 04/01/2025 Sinus tachycardia SCAN CORRESP-EKG RESULTS 03/20/2025 12:04 PM CDT SCAN CORRESP-LABORATORY RESULTS 03/12/2025 12:00 AM CDT SCAN CORRESP-IMAGING 03/12/2025 12:00 AM CDT HPV HIGH RISK Routine 05/23/2023 5:02 PM CDT Screening for malignant neoplasm of cervix ANTI HIV 1/2 Routine 10/18/2016 2:13 PM CLAY DIGGER Encounter for supervision of normal first in first trimester (HC) ANTI HCV Routine 06/16/2015 10:49 AM CDT Screening for STD (sexually transmitted disease) from Last 3 Months or Most Recently Relevant to Health Maintenance Results * ECHO TTE COMPLETE WO CONTRAST (04/03/2025 1:27 PM CDT) AORTIC VALVE MEAN PG 7 mmHg LVEDD 5.5 cm EJECTION FRACTION 60 - 65% Anatomical Region Laterality Modality Ultrasound 04/03/2025 12:5 7 PM CDT Narrative 04/03/2025 2:23 PM CDT ECHOCARDIOGRAM CARON R SHEETS : 1995 29 years Study Date: 04/03/2025 12:57:06 PM Gender: F BP: 124/60 mmHg Height: 175.26 cm BSA: 2.54 m Weight: 147.42 kg Tech: RICH Referring MD: ANDREW PETERSEN Site: [facility] Reading Location: MOBILE - OP Patient Location: Outpatient. Procedure: 2D, Color Doppler and Spectral Doppler. Indication for study: Sinus tachycardia Cardiac Rhythm: Sinus tachycardia.Study quality: Fair. Final Impressions: 1. Normal LV size, normal wall thickness, normal global systolic function with an estimated EF of 60 - 65%. 2. Right ventricular cavity size is normal, global systolic RV function is normal. 3. No significant valve disease detected. 4. The inferior vena cava is normal sized, respiratory size variation greater than 50%. Chamber Sizes and Function Normal left ventricular size, normal wall thickness, normal global systolic function with an estimated EF of 60 - 65%. No resting regional wall motion abnormality visualized. False tendon in left ventricular apex - nonpathologic finding. Left atrial size is normal. Left atrial pressure is normal. Right ventricular cavity size is normal, global systolic RV function is normal. RV wall thickness is normal. The right atrium is normal. The pulmonary artery is of normal size and origin. The sinus of Valsalva is normal sized. The ascending aorta is normal sized. Valves, RV Pressures and Diastolic Function The aortic valve is normal in structure and trileaflet, no stenosis and no regurgitation. The mitral valve is normal in structure, trace mitral regurgitation. Normal diastolic function. The tricuspid valve is normal in structure, regurgitation is not evident tricuspid regurgitation. The pulmonic valve is normal. No pulmonary regurgitation. Masses, Effusion, Shunts There is no pericardial effusion. The inferior vena cava is normal sized, respiratory size variation greater than 50%. No left to right shunting was detected by limited color flow Doppler interrogation of the interatrial septum. MEASUREMENTS AND CALCULATIONS 2-D Measurements and LV Function: LVID (d) 5.5 cm LV FS% (2D) 42 % LVID (s) 3.2 cm LVOT diameter 2.4 cm IVS (d) 1.0 cm HR 104 bpm LVPW (d) 1.1 cm LA Vol index 28 ml/m2 Ao Sinus 3.1 cm Ao Sinus ULN 3.5 cm * Asc Ao 3.2 cm Asc Ao ULN 3.4 cm * * Input BSA outside of range, reported values correspond to BSA = 1.9 Diastology: Mitral Tissue Doppler E Peak 0.7 m/s e', Septum 0.10 m/s A Peak 0.7 m/s e', Lateral 0.11 m/s E/A 1.0 E/e' Average 7.14 DT 187 msec Aortic Valve: Vmax 1.7 m/s MARICHUY (V) 3.49 cm VTI 0.31 m MARICHUY (I) 2.81 cm LVOT V max 1.3 m/s Max PG 11 mmHg LVOT VTI 0.20 m Mean PG 7 mmHg SV 88 ml Dim Index 0.62 SV index 35 ml/m CO 9.2 l/min CI 3.6 l/min/m Mitral Valve: MVA 4.1 cm MV P 1/2 54 msec Tricuspid Valve and estimated PA pressures: TAPSE 2.1 cm . This study was interpreted by an [facility] accredited facility. Final Procedure Note Dhruv Cobb MD - 04/03/2025 ECHOCARDIOGRAM CARON R SHEETS : 1995 29 years Study Date: 04/03/2025 12:57:06 PM Gender: F BP: 124/60 mmHg Height: 175.26 cm BSA: 2.54 m Weight: 147.42 kg Tech: RICH Referring MD: ANDREW PETERSEN Site: [facility] Reading Location: MOBILE - OP Patient Location: Outpatient. Procedure: 2D, Color Doppler and Spectral Doppler. Indication for study: Sinus tachycardia Cardiac Rhythm: Sinus tachycardia.Study quality: Fair. Final Impressions: 1. Normal LV size, normal wall thickness, normal global systolic functionwith an estimated EF of 60 - 65%. 2. Right ventricular cavity size is normal, global systolic RV functionis normal. 3. No significant valve disease detected. 4. The inferior vena cava is normal sized, respiratory size variationgreater than 50%. Chamber Sizes and Function Normal left ventricular size, normal wall thickness, normal globalsystolic function with an estimated EF of 60 - 65%. No resting regionalwall motion abnormality visualized. False tendon in left ventricular apex- nonpathologic finding. Left atrial size is normal. Left atrial pressureis normal. Right ventricular cavity size is normal, global systolic RVfunction is normal. RV wall thickness is normal. The right atrium isnormal. The pulmonary artery is of normal size and origin. The sinus ofValsalva is normal sized. The ascending aorta is normal sized. Valves, RV Pressures and Diastolic Function The aortic valve is normal in structure and trileaflet, no stenosis and noregurgitation. The mitral valve is normal in structure, trace mitralregurgitation. Normal diastolic function. The tricuspid valve is normal instructure, regurgitation is not evident tricuspid regurgitation. Thepulmonic valve is normal. No pulmonary regurgitation. Masses, Effusion, Shunts There is no pericardial effusion. The inferior vena cava is normal sized,respiratory size variation greater than 50%. No left to right shunting wasdetected by limited color flow Doppler interrogation of the interatrialseptum. MEASUREMENTS AND CALCULATIONS 2-D Measurements and LV Function: LVID (d) 5.5 cm LV FS% (2D) 42% LVID (s) 3.2 cm LVOT diameter2.4 cm IVS (d) 1.0 cm HR104 bpm LVPW (d) 1.1 cm LA Vol index 28ml/m2 Ao Sinus 3.1 cm Ao Sinus ULN 3.5 cm * Asc Ao 3.2 cm Asc Ao ULN 3.4 cm * * Input BSA outside of range, reported values correspond to BSA = 1.9 Diastology: Mitral Tissue Doppler E Peak 0.7 m/s e', Septum 0.10 m/s A Peak 0.7 m/s e', Lateral 0.11 m/s E/A 1.0 E/e' Average 7.14 DT 187 msec Aortic Valve: Vmax 1.7 m/s MARICHUY (V) 3.49 cm VTI 0.31 m MARICHUY (I) 2.81 cm LVOT V max 1.3 m/s Max PG 11 mmHg LVOT VTI 0.20 m Mean PG 7 mmHg SV 88 ml Dim Index 0.62 SV index 35 ml/m CO 9.2 l/min CI 3.6 l/min/m Mitral Valve: MVA 4.1 cm MV P 1/2 54 msec Tricuspid Valve and estimated PA pressures: TAPSE 2.1 cm . This study was interpreted by an [facility] accredited facility. Final Andrew Petersen MD ECHO ORD Final R esult * EKG 12 LEAD (04/01/2025 7:31 AM CDT) Interpretation Sinus tachycardia Otherwise normal ECG When compared with ECG of 29-Jul-2015 19:24, T wave inversion no longer evident in Inferior leads Ventricular Rate 101 BPM Atrial Rate 101 BPM P-R Interval 132 ms QRS Duration 76 ms QT 346 ms QTc 448 ms P Midd[place] 60 degrees R [place] 80 degrees T [place] 69 degrees 04/01/2025 7:31 AM CDT 04/01/2025 9:23 AM CDT Andrew Petersen MD EKG ORD Final R esult * ZIO PATCH XT - weekly to monthly symptoms. (04/01/2025) 04/01/2025 Narrative Jah Flaherty MD - 04/12/2025 12:00 AM CDT Agree with Findings. Please see scan document for full report. Signed By Jah Austin MD Procedure Note Jah Flaherty MD - 04/12/2025 Agree with Findings. Please see scan document for full report. Signed By Jah Austin MD Andrew Petersen MD CARDIAC SERVICES ORD Fi nal Result * SCAN CORRESP-EKG RESULTS (03/20/2025 12:04 PM CDT) Narrative 03/20/2025 12:04 PM CDT Ordered by an unspecified provider. Other Clinical Staff OTHER Final Resul t * SCAN CORRESP-LABORATORY RESULTS (03/12/2025 12:00 AM CDT) us Scanner OTHER Final Result * SCAN CORRESP-IMAGING (03/12/2025 12:00 AM CDT) Anatomical Region Laterality Modality Other us Scanner OTHER Final Result * HPV HIGH RISK (05/23/2023 5:02 PM CDT) TYPE 16 Negative Negative 05/27/2023 1:16 PM CDT [facility] TYPE 18 Negative Negative 05/27/2023 1:16 PM CDT [facility] OTHER HIGH RISK TYPES Negative Negative 05/27/2023 1:16 PM CDT [facility] Other (Cervical) Non-Blood / Unknown 05/23/2023 5:02 PM CDT 05/24/2023 5:02 PM CDT Narrative [facility] - 05/27/2023 1:16 PM CDT HPV types 16, 18, 31, 33, 35, 39, 45, 51, 52, 56, 58, 59, 66 and 68 DNA were undetectable or below the pre-set threshold. Methodology: Steve Nikki 4800 HPV Test us Светлана Malik DO MICROBIOLOGY Final Resu lt [facility] [address] [place] [address], * ANTI HIV 1/2 (10/18/2016 2:13 PM CLAY DIGGER) HIV-1/HIV-2 ANTIBODY Non-Reacti ve Non-Reacti ve 10/18/2016 6:20 PM CLAY DIGGER [facility] Blood BLOOD SPECIMEN / Unknown Venipuncture / Unknown 10/18/2016 2:13 PM CLAY DIGGER 10/18/2016 2:13 PM CLAY DIGGER Narrative [facility] - 10/18/2016 6:20 PM CLAY DIGGER HIV-1 p24 and HIV-1/HIV-2 Ab not detected us Senait Curtis SYSTEMS ADMINISTRATOR SEND OUTS Final Result [facility] [address] [place] [address], [place] * ANTI HCV (06/16/2015 10:49 AM CDT) HEPATITIS C ANTIBODY Non-Reacti ve Non-Reacti ve 06/16/2015 5:48 PM CDT [facility] Blood specimen (specimen) BLOOD SPECIMEN / Unknown Venipuncture / Unknown 06/16/2015 10:49 AM CDT 06/16/2015 10:50 AM CDT Narrative [facility] - 06/16/2015 5:48 PM CDT Antibodies to HCV not detected; does not exclude the possibility of exposure to HCV. Rachel Monet DO SEND OUTS Julianna l Result [facility] [address] [place] [address], from Last 3 Months or Most Recently Relevant to Health Maintenance Insurance [employer] [place] Care Teams Test Automation Architect Relationship Specialty Start Date End Date Светлана [place] [address] [place] [address] PCP - General Family Practice 05/24/23
--- OUTSIDE RECORDS SUMMARY | 2025-05-20 15:40 | XMS_ITS | Encounter Summary ---
Author Organization [facility] Address [address] [place] [address] Care Team Providers Care Blower Room Attendant Name Role Phone Elsewhere, Pcp Primary Care Provider Unavailabl e Encounter Details Date Type Department Care Team (Late st Contact Info) Description 04/11/2025 Orders Only Division of Nephrology and Hypertension in [place], [place] [address] [place] [address] External, Ordering ProviderYogesh Social History Tobacco Use Types Packs/Day Years [...] your living situation today? I have a [facility] place to live 07/27/2023 Comments Unknown Sex and Gender Information Value Date Recorded Sex Assigned at Female 07/27/2023 7:49 AM PROFESSIONAL PROGRAMMER ANALYST Legal Sex Female 10:27 AM PROFESSIONAL PROGRAMMER ANALYST Gender Identity Female 07/27/2023 7:49 AM PROFESSIONAL PROGRAMMER ANALYST Sexual Orientation Bisexual 07/27/2023 7: 49 AM PROFESSIONAL PROGRAMMER ANALYST documented as of this encounter Plan of Treatment Not on file documented as of this encounter Procedures Procedure Name Priority Date/Time Associated Diagnosis Comments EXT OUTSIDE LAB TESTS Routine 04/11/2025 12:47 PM CDT documented in this encounter Results * EXT Outside Lab Tests (04/11/2025 12:47 PM CDT) EXT Miscellaneous See scanned report [facility] 04/11/2025 12:4 7 PM CDT Narrative [facility] - 04/15/2025 9:35 AM CDT External results verified in Extract by Iwona Hay on 04/15/2025 at 09:33 AM. us Ordering Provider External M.DBebeto LAB BLOOD NON AD D-ON Final Result [facility] [address] [place] [address], [facility] [phone] documented in this encounter Visit Diagnoses Not on filedocumented in this encounter Care Teams Blower Room Attendant Relationship Specialty Start Date End Date Elsewhere, Pcp PCP - General Internal Medicine 03/01/24 documented as of this encounter
--- OUTSIDE RECORDS SUMMARY | 2025-05-20 15:40 | XMS_ITS | Encounter Summary ---
Author Organization [facility] Address [address] [place] [address] Care Team Providers Care Manager Baby Name Role Phone Elsewhere, Pcp Primary Care Provider Unavailabl e Encounter Details Date Type Department Care Team (Late st Contact Info) Description 04/11/2025 Orders Only Division of Nephrology and Hypertension in [place], [place] [address] [place] [address] External, Ordering ProviderYogesh Social History Tobacco Use [...] your living situation today? I have a [facility] place to live 07/27/2023 Comments Unknown Sex and Gender Information Value Date Recorded Sex Assigned at Female 07/27/2023 7:49 AM SALES EXECUTIVE INSURANCE Legal Sex Female 10:27 AM SALES EXECUTIVE INSURANCE Gender Identity Female 07/27/2023 7:49 AM SALES EXECUTIVE INSURANCE Sexual Orientation Bisexual 07/27/2023 7: 49 AM SALES EXECUTIVE INSURANCE documented as of this encounter Plan of Treatment Not on file documented as of this encounter Procedures Procedure Name Priority Date/Time Associated Diagnosis Comments PROTEIN/CREATININE RATIO, RANDOM, URINE Routine 04/11/2025 12:47 PM CDT documented in this encounter Results * (ABNORMAL) Protein/Creatinine Ratio, Random, Urine (04/11/2025 12:47 PM CDT) EXT Creatinine, U 41.1 mg/dL [facility] EXT Protein, Total, Random, U 16 mg/dL [facility] Ext Protein/Creati nine ratio, Urine 0.39(H) 0 - 0.19 [facility] 04/11/2025 12:4 7 PM CDT Narrative [facility] - 04/12/2025 7:19 AM CDT External results verified in Extract by Iwona Hay on 04/12/2025 at 07:16 AM. us Ordering Provider External Yogesh LAB URINE ORDERA BLES Final Result [facility] [address] [place] [address], [facility] [phone] documented in this encounter Visit Diagnoses Not on filedocumented in this encounter Care Teams Manager Baby Relationship Specialty Start Date End Date Elsewhere, Pcp PCP - General Internal Medicine 03/01/24 documented as of this encounter
--- OUTSIDE RECORDS SUMMARY | 2025-05-20 15:40 | XMS_ITS | Patient Health Record ---
Author Organization [facility] Address [address] [place] [address] Care Team Providers Care Hooker Off Name Role Phone Kaitlin Hunter Primary Care Provider ANASTASIA Larson Unavailable [phone] Allergies Allergen (clinical drug ingredient) Drug/Non Drug [...] Duration: 7 Active Vitamin D3 1.25 MG (77797 UT) Capsule Oral; Duration: 30 Active Desvenlafaxine [...] Peggy Perea MA prior to 2023 [address] [address] [place], [place] [id number], Kami Self - patient is the insured Medical (General) History Medical History History ICD Code Anesthesia problems Sleep apnea Surgical History Surgery Date(Month/Year) Laparoscopy 10/2019 06/07 Tonsillectomy 2015 Right arm surgery 2013 Hospitalization History Reason Date(Month/Year) See above
--- OUTSIDE RECORDS SUMMARY | 2025-05-20 15:40 | XMS_ITS | Encounter Summary ---
Author Organization [facility] Address [address] [place] [address] Care Team Providers Care Discharge Door Operator Name Role Phone Elsewhere, Pcp Primary Care Provider Unavailabl e Encounter Details Date Type Department Care Team (Late st Contact Info) Description 04/11/2025 Orders Only Division of Nephrology and Hypertension in [place], [place] [address] [place] [address] External, Ordering ProviderYogesh Social History Tobacco Use [...] your living situation today? I have a [facility] place to live 07/27/2023 Comments Unknown Sex and Gender Information Value Date Recorded Sex Assigned at Female 07/27/2023 7:49 AM PRINTING EQUIPMENT MECHANIC APPRENTICE Legal Sex Female 10:27 AM PRINTING EQUIPMENT MECHANIC APPRENTICE Gender Identity Female 07/27/2023 7:49 AM PRINTING EQUIPMENT MECHANIC APPRENTICE Sexual Orientation Bisexual 07/27/2023 7: 49 AM PRINTING EQUIPMENT MECHANIC APPRENTICE documented as of this encounter Plan of Treatment Not on file documented as of this encounter Procedures Procedure Name Priority Date/Time Associated Diagnosis Comments EXTP URINALYSIS WITH MICROSCOPY, URINE Routine 04/11/2025 12:47 PM CDT CBC WITH DIFFERENTIAL, B Routine 04/11/2025 12:45 PM CDT documented in this encounter Results * (ABNORMAL) EXT Urinalysis with Microscopy, Urine (04/11/2025 12:47 PM CDT) EXT Color Yellow Yellow [facility] EXT Appearance, Urine Clear Clear [facility] EXT Glucose Qualitative, Urine Negative Negative [facility] EXT Bilirubin, Urine Negative Negative [facility] EXT Ketones, POCT, Urine Negative Negative [facility] EXT Specific [place], POCT, Urine 1.010 1.000 - 1.030 [facility] EXT Blood, Urine Trace(A) Negative [facility] EXT pH, Random, Urine 6.5 5.0 - 8.5 [facility] EXT Protein, Urine Negative Negative [facility] EXT Urobilinogen, Urine 0.2 0.2 - 1.0 [facility] EXT Nitrite, Urine Negative Negative [facility] EXT Leukocyte Esterase, Urine Negative Negative [facility] EXT Red Blood Cells, U 0-2 0 - 2 [facility] EXT Squamous Cells Few None-Few [facility] EXT Bacteria Few(A) None [facility] EXT White Blood Cells, U 0-2 0 - 5 [facility] 04/11/2025 12:4 7 PM CDT Narrative [facility] - 04/11/2025 2:32 PM CDT Source result document attached to Order Number [id number] (CBC WITH DIFFERENTIAL, B) dated 04/11/2025. External results verified in Extract by Iwona Hay on 04/11/2025 at 02:29 PM. us Ordering Provider Beckie Zuñiga LAB URINE ORDERA BLES Final Result Performing Organization Address City/[facility]/ZIP Co de Phone Number [facility] [address] [place] [address], [facility] [phone] * (ABNORMAL) CBC with Differential, Blood (04/11/2025 12:45 PM CDT) EXT Leukocytes 10.88 4.50 - 11.00 K/uL [facility] EXT RBC 3.83(L) 4.00 - 5.20 m/uL [facility] EXT Hemoglobin 10.5(L) 12.0 - 16.0 gm/dL [facility] EXT Hematocrit 31.5(L) 33.0 - 51.0 % [facility] EXT MCV 82 80 - 100 fL [facility] EXT Platelet Count 330 140 - 440 K/uL [facility] 04/11/2025 12:4 5 PM CDT Narrative [facility] - 04/11/2025 2:32 PM CDT External results verified in Extract by Iwona Hay on 04/11/2025 at 02:29 PM. us Ordering Provider Beckie Zuñiga LAB BLOOD ADD-ON Final Result Performing Organization Address City/[facility]/ZIP Co de Phone Number [facility] [address] [place] [address], [facility] [phone] documented in this encounter Visit Diagnoses Not on filedocumented in this encounter Care Teams Discharge Door Operator Relationship Specialty Start Date End Date Elsewhere, Pcp PCP - General Internal Medicine 03/01/24 documented as of this encounter
--- OUTSIDE RECORDS SUMMARY | 2025-05-20 15:41 | XMS_ITS | Encounter Summary ---
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
--- OUTSIDE RECORDS SUMMARY | 2025-05-20 15:41 | XMS_ITS | Patient Health Record ---
Author Organization [facility] Melvi Gonz[facility]les at [facility] Address [address] [place] [address] DR MART[facility]NEZ [facility] [place] [address] Care Team Providers Care Proposal Writer Name Role Phone VARGAS ADEN MD Primary [...] Status W/U Status Risk Notes Problem Heartburn (19342218) Heartburn (R12) Active confirmed Problem Obstructive sleep apnea syndrome (disorder) (96442927) Obstructive sleep apnea (adult) (pediatric) (G47.33) Active confirmed Problem Dependence on enabling machine or device (725400179) Dependence on other enabling machines and devices (Z99.89) Active confirmed Problem Morbid obesity (disorder) (928499417) Morbid (severe) obesity due to excess calories (E66.01) Active confirmed Problem Blood chemistry abnormal (116561097) Low vitamin D level (R79.89) Active confirmed Problem Body mass index 40+ - severely obese (633320062) Body mass index [BMI] 45.0-49.9, adult (Z68.42) Active confirmed Plan Of Treatment No Information Insurance Providers Payer Name Payer Address Payer Phone Subscriber Number Group Number Insured Name Patient Relationship to Insured Coverage Start Date Coverage End Date BLUE PLUS PMAP [address] [address] [place] [address] [id number] [facility] Self - patient is [...]
--- OUTSIDE RECORDS SUMMARY | 2025-05-20 15:41 | XMS_ITS | Encounter Summary ---
Author Organization [facility] Address [address] [place] [address] Care Team Providers Care Wolf Hunter Name Role Phone Needs Pcp, Assignment Primary Care Provider [phone] Encounter Details Date Type Department Care Team (Late st Contact Info) Description 06/08/2017 Scanned History External to External, [place] [address] [facility] Social History Tobacco Use [...] on filedocumented in this encounter Care Teams Wolf Hunter Relationship Specialty Start Date End Date Needs Pcp, Assignment [place], [place] [address] PCP - General 02/01/18 documented as of this encounter
--- OUTSIDE RECORDS SUMMARY | 2025-05-20 15:41 | XMS_ITS | Encounter Summary ---
Author Organization [facility] Address [address], [place] [address] Care Team Providers Care Marketing Programs Manager Name Role Phone Needs Pcp, Assignment Primary Care Provider [phone] Encounter Details Date Type Department Care Team [...] on filedocumented in this encounter Care Teams Marketing Programs Manager Relationship Specialty Start Date End Date Needs Pcp, María [facility] [place] [place], [place] [address] PCP - General 02/01/18 documented as of this encounter
--- OUTSIDE RECORDS SUMMARY | 2025-05-20 15:41 | XMS_ITS | Clinical Summary ---
Author Organization [facility] Address [address] [place] [address] Care Team Providers Care Vermin Exterminator Name Role Phone Kaitlin Hunter MD Primary Care Provider [phone] Serena Temple MD Unavailable [phone] Allergies Active Allergy Reactions Criticality Noted Date Comments Ibuprofen Swelling, lips/tongue,Rash High 6 Kiwi Hives Medium 10/08/2021 Medications levonorgestreL (MIRENA) 20 mcg/24 hours (6 yrs) 52 mg IU IUD 1 Device by Intrauterine route ONCE. Active Mth-Me Blue-Sod Vogr-XaYii-Eub (URIBEL) 118-10-40.8-36 mg oral Cap Take 1 tablet by mouth. 2 Active Tubing and Mask for CPAPIndications :JUAN PABLO (obstructive sleep apnea) 1 each by [facility].(Non-Drug; Combo Route) route as directed. 1 each 11 2 Active ondansetron (ZOFRAN) 4 mg oral ODTIndications: Nausea Dissolve 1 tablet (4 mg) in mouth every 8 (eight) hours as needed for nausea. 20 tablet 2 Active desvenlafaxine succinate (PRISTIQ) 50 mg oral extended release tablet 24 HRIndications:G AD (generalized anxiety disorder),Mild episode of recurrent major depressive disorder Take 1 tablet (50 mg) by mouth once daily. 30 tablet 2 Active Active Problems Problem Noted Date Diagnosed Date Syncope, unspecified syncope type 10/22/2021 Overview (10/22/2021): Added automatically from request for surgery [id number] JUAN PABLO (obstructive sleep apnea) 10/01/2021 Overview [...] (Infanrix) 03/14/1997 DTaP/HIB 03/18/1998, 7,1993,11/10,1993 HPV Quadrivalent 10/31/2008,06/24/2008, 8 Hep A Adult 04/10/2013 Hep A [...] Sex Assigned at Female 07/02/2021 11:07 AM GEOPOLITICS TEACHER Legal Sex Female 4:50 PM CDT Gender Identity Female 07/02/2021 11:07 AM GEOPOLITICS TEACHER Sexual Orientation Bisexual 07/02/2021 11 :07 AM GEOPOLITICS TEACHER Last Filed Vital Signs Vital Sign [...] Follow-Up (PHQ-9) 1994 Pap Smear 04/30/2023 04/30/2020 Colonoscopy 12/23/2024 12/24/2019 COVID-19 Vaccine ( season) 2025 09/25/2021, 02/23/2021, 02/02/2021 Influenza Vaccine (#1) 2025 , 07/04/2020, 07/03/2019, Additional history exists Adult Tetanus Booster 10/14/2030 10/14/2020 , 04/10/2013, 08/02/2005 RSV Vaccines (1 - 1-dose 75+ series) 2068 HPV Vaccine Completed 10/31/2008, 10/2007, 04/04/2008 Hepatitis C Screening Completed 04/30/2020 Meningococcal B [...] PM CDT) Case Report Pap Smear Case: [id number] Authorizing Provider: Georgina Metzger PA-C Collected: 04/30/2020 06:28 PM Ordering Location: [facility] - Received: 05/01/2020 05:56 PM [facility] First Screen: Sumi Myrick Specimen: Cervical Thin Prep (HPV Reflex) Bowling Or Skating Front Desk Clerk Screen, Cervix 05/05/2020 3:37 PM CDT [facility] Interpretation Negative for intraepithelial lesion or malignant cells. 05/05/2020 3:37 PM CDT [facility] at 1537 CDT Specimen Adequacy Satisfactory for evaluation. Endocervical/trans formation zone component absent. 05/05/2020 3:37 PM CDT [facility] LMP 04/30/2020 05/05/2020 3:37 PM CDT [facility] Pap Disclaimer This specimen was screened by the [employer] A/SPrep Imaging System prior to manual review by a twisting frame operator and/or pathologist. The Pap test is [...] 17 (5): S2-S27 05/05/2020 3:37 PM CDT [facility] Vaginal and cervical cytologic material (specimen) CERVIX UTERI STRUCTURE / Unknown 04/30/2020 6:28 PM CDT 05/01/2020 5:56 PM CDT Comment:No LMP recorded. (Pr nstrual status: IUD). Georgina Metzger PA-C PATHOLOGY/CYTOLOGY ORDERABLE F inal Result Performing Organization Address City/[facility]/ZIP Co de Phone Number [facility] [address] [place] [address] * HEP C ANTIBODY (04/30/2020 5:54 PM CDT) Hepatitis C Antibody Non-Reacti ve Non-Reacti ve 05/01/2020 1:06 PM CDT [facility] Blood specimen (specimen) VENOUS BLOOD SPECIMEN / Unknown 04/30/2020 5:54 PM CDT 05/01/2020 11:44 AM CDT Georgina Metzger PA-C IMMUNOLOGY ORDERABLE Final Res ult [facility] [address] [place] [phone] from Last 3 Months or Most Recently Relevant to Health Maintenance Care Teams Vermin Exterminator Relationship Specialty Start Date End Date Kaitlin Hunter MD [address] [facility] [address] [place] [address] PCP - General Family Medicine 10/23/21 Serena Temple MD [address] [facility] [address] [place] [address] Neurology 10/23/21
--- OUTSIDE RECORDS SUMMARY | 2025-05-20 15:41 | XMS_ITS | Clinical Summary ---
Author Organization [facility] Address [address] [address] Phone Care Team Providers Care Computer Applications Developer Name Role Phone Joanne Ramsey APRN, FILLING HAND Unavailable Luisana Cuevas MD Primary Care Provider [phone] Allergies Active Allergy Reactions Criticality Noted Date [...] PM CDT Legal Sex Female 11:06 PM VETERANS' COORDINATOR Gender Identity Female 11/08/2022 6:00 PM [...] (Standing Order) 2012 TETANUS (Standing Order) 2012 Influenza Vaccine Seasonal (Standing Order) (#1) 2025 Last pap w/o HPV Testing 05/31/2026 05/31/2023 [...] to complete this topic Insurance BLUE PLUS [facility] Advance Directives For more information, please contact: [phone] * Full Code (Latest Code Status on File) Date Activated Date Inactivated Comments 11/08/2022 6:25 PM 11/11/2022 4:46 PM Care Teams Computer Applications Developer Relationship Specialty Start Date End Date Luisana Cuevas MD [address] [address] PCP - General night baker 03/28/23 Joanne Ramsey, DIRT SHOVELER, FILLING HAND [address] [place] [phone] Nurse Practitioner Psychiatry 11/15/22
--- OUTSIDE RECORDS SUMMARY | 2025-05-20 15:41 | XMS_ITS | Clinical Summary ---
Author Organization [facility] Address [address], [place] [address] Care Team Providers Care Hand Packer Name Role Phone Needs Pcp, Assignment Primary Care Provider [phone] Source Comments You are receiving this document as you are listed as the primary care provider,follow-up provider, or the patient has been referred to you for consultation.This is in compliance with the Medicare and[facility] EHR Incentive Program,which states Providers who transition their patient to another setting of careor provider of care or refers their patient to another provider of care shouldprovide summary care record for each transition of care or referral. 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
--- OUTSIDE RECORDS SUMMARY | 2025-05-20 15:41 | XMS_ITS | Clinical Summary ---
Author Organization [facility] Address [address] [place] [address] Care Team Providers Care Bandoleer Packer Name Role Phone Daisy Beebe PA-C Unavailable [phone] System, Provider Not In Primary Care Provider Un available Nilam Beal MD Unavailable Ofelia Macedo MD Unavailable [phone] Allergies Active Allergy Reactions Criticality Noted Date Comments Ibuprofen Hives,Rash High 12/29/2014 Other reaction(s): Swelling, lips/tongue Other reaction(s): Hives Kiwi Hives High 10/08/2021 Kiwi Extract Anaphylaxis High 11/08/2022 Levofloxacin Anxiety High 11/08/2022 Causes panic attacks No Known Allergies 05/21/2002 Pineapple Anaphylaxis High 11/08/2022 Sulfa Antibiotics Anaphylaxis High 11/08/2022 Medications citalopram (CELEXA) 10 MG tablet Take 10 mg by mouth. 024 Active lamoTRIgine (LAMICTAL) 200 MG tablet Take 200 mg by mouth daily. Active acetaminophen (TYLENOL) 325 MG tabletIndicati ons:S/P section Take 2 tablets (650 mg) by mouth every 6 hours as needed for mild pain. Start after Delivery. 025 Active senna-docusate (SENOKOT-S/PER ICOLACE) 8.6-50 MG tabletIndicati ons:S/P section Take 1 tablet by mouth daily. Start after delivery. 100 tablet Active oxyCODONE (ROXICODONE) 5 MG tabletIndicati ons:S/P section Take 1 tablet (5 mg) by mouth every 6 hours as needed for pain. 12 tablet 025 2024 Active metoprolol succinate ER (TOPROL XL) 50 MG 24 hr tabletIndicati ons:Tachycardi a Take 1 tablet (50 mg) by mouth daily. 30 tablet 025 Active oxyCODONE (ROXICODONE) 5 MG tabletIndicati ons:S/P section Take 1 tablet (5 mg) by mouth every 4 hours as needed for moderate pain. 12 tablet Active Cholecalcifero l 100 MCG (4000 UT) TABS 2024 Discontinued(M ed Rec(No AVS / No eCancel)) albuterol (PROAIR HFA/PROVENTIL HFA/VENTOLIN HFA) 108 (90 Base) MCG/ACT inhalerIndicat ions:Infection due to 2019 novel coronavirus Inhale 2 puffs into the lungs every 6 hours as needed for shortness of breath, wheezing or cough 18 g 1 023 2024 Discontinued(M ed Rec(No AVS / No eCancel)) acetaminophen (TYLENOL) 500 MG tablet Take 1,000 mg by mouth. 2024 Discontinued(S top at Discharge) Acetaminophen 325 MG CAPS Take by mouth. 2024 Discontinued(S top at Discharge) metoprolol succinate ER (TOPROL XL) 50 MG 24 hr tablet Take 50 mg by mouth daily. 2024 Discontinued(M ed Rec(No AVS / No eCancel)) labetalol (NORMODYNE) 100 MG tablet Take 100 mg by mouth 3 times daily. 2024 Discontinued(S top at Discharge) insulin NPH 100 UNIT/ML vial Inject 20 Units subcutaneously at bedtime. 2024 Discontinued(S top at Discharge) aspirin 81 MG EC tablet Take 81 mg by mouth daily. 2024 Discontinued(S top at Discharge) oxyCODONE (ROXICODONE) 5 MG tabletIndicati ons:S/P section Take 1 tablet (5 mg) by mouth every 4 hours as needed for moderate pain. 12 tablet 025 2024 Discontinued Active Problems Problem Noted Date Diagnosed Date Chronic hypertension with superimposed preeclamp ginger 05/14/2025 Infection due to 2019 novel coronavirus 09/21/19 JUAN PABLO (obstructive sleep apnea) 10/01/2021 Overview [...] Encounters Date Type Department Care Team Description 05/20/2025 Telephone [facility] [address] 3rd [address] [facility] [address] [phone] Education, [facility] Obgyn Nurse 05/17/2025 Telephone [facility] [address] [facility] [address] [phone] Education, [facility] Obgyn Nurse 05/15/2025 5:50 AM CDT Ancillary Procedure [facility] [address] [place] [address] Jorge Gonzalez MD 05/15/2025 2:17 AM CDT Anesthesia Event [facility] [address] [place] [phone] Jorge Gonzalez MD Fedje-Johnston, William N, MD 05/15/2025 1:55 AM CDT - 05/15/2025 3:50 AM CDT Surgery [facility] [address] [place] [phone] Theresa Park MD section 05/14/2025 4:47 PM CDT - 05/18/2025 3:31 PM CDT Hospital Encounter [facility] [address] [place] [phone] Michelle Thakkar MD Marcotte, Michael P, MD Ralph, Jessika A, MD Chronic hypertension with superimposed preeclampsia (Primary Dx); S/P bladder repair; care and examination of lactating mother; S/P section; Tachycardia Discharge Disposition: Home or Self Care 04/10/2025 10:00 AM CDT Office Visit [facility] [address] [place] [address] Kitty Dennis MD Suspected anomaly not found (Primary Dx); Chronic hypertension affecting ; Obesity affecting , antepartum, unspecified obesity type 04/10/2025 9:30 AM CDT Ancillary Procedure [facility] [address] [phone] Kitty Dennis MD Obesity during ; Chronic hypertension in 04/10/2025 Travel 03/19/2025 11:30 AM CDT Office Visit [facility] [address] [address] Kitty Dennis MD Obesity during (Primary Dx); Chronic hypertension in ; Suspected anomaly, antepartum, single or unspecified fetus 03/19/2025 11:00 AM CDT Ancillary Procedure [facility] [address] [phone] Kitty Dennis MD Obesity during ; Chronic hypertension in 03/19/2025 Travel 03/19/2025 Orders Only [facility] [address] [facility] [address] [place] [address] Ofelia Macedo MD Obesity during (Primary Dx); Chronic hypertension in 03/05/2025 10:00 AM CDT Office Visit [facility] [address] [place] [phone] Ro Ford MD Hoover, Elizabeth, MD Chronic hypertension in (Primary Dx); Obesity during ; Encounter for anatomic survey; History of section; related condition in second trimester 03/05/2025 8:58 AM CDT - 03/05/2025 11:59 PM CDT Hospital Encounter [facility] [address] [phone] Ro Ford MD Hoover, Elizabeth, MD related condition, antepartum Discharge Disposition: Home or Self Care 03/05/2025 Travel 02/26/2025 PRE VISIT [facility] [place] [address] [place] [phone] Ofelia Lucero, RN Ultrasound (L2- CHTN, obesity, bipolar, sinus tachycardia, suboptimal outside [place]) 02/21/2025 Transcribe Orders [facility] [place] [address] [address] [phone] Ro Ford MD related condition, antepartum (Primary Dx) 02/20/2025 Medical Correspondence [facility] [address] [place] [address] [address] [place] [address] Scan, Non-Provider 02/20/2025 Transcribe Orders [facility] [address] [facility] [address] [place] [phone] Ro Ford MD related condition, antepartum (Primary Dx) from Last 3 Months Immunizations Immunization Administration Dates Next Due COVID-19 MONOVALENT 12+ (Pfizer) 09/25/2021,070 12/2020,02/02/2021 DTAP (<7y) 03/14/1997 HEPA 04/10/2013 HPV Quadrivalent 10/31/2008,06/24/2008,08/14/200 8 HepB, Unspecified 01/18/1995,1993 Hepatitis A (VAQTA)(ADULT [...] drink = 0.6 oz pur e alcohol) [place] Depression Scale Answer Date Recorded [place] Depression Scale Total 3 05/16/2025 The thought [...] in an abandoned building, in an overnight nursing home, or couch-surfing.) Yes 05/14/2025 Are you worried [...] on file Legal Sex Female 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 Gender Identity Not on file Sexual Orientation [...] Mass Index 45.81 05/14/2025 6:00 PM CDT Plan of Treatment Upcoming Encounters Date Type Department Care Team (Late st Contact Info) Description 05/23/2025 8:00 AM CDT Appointment [facility] [address] [place] [phone] Delaney Watkins MD [address] [place], [place] [phone] 05/23/2025 1:45 PM CDT Office Visit [facility] [place] [address] [facility] [address] [place] [address] Annmarie Rodrigues MD [address] [place] [address] Scheduled Procedures Name Priority Associated Diagnoses Date/Ti me SECTION Chronic hypertension with superimposed preeclampsia Health Maintenance Due Date Last Done Comments ADVANCE CARE PLANNING 1995 ANNUAL REVIEW OF HM ORDERS 1993 DEPRESSION ACTION PLAN 1993 PHQ-9 01/01/2014 07/04/2013 YEARLY PREVENTIVE VISIT 05/23/2024 05/23/20, 10/23/2021, 04/30/2020, Additional history exists INFLUENZA VACCINE (#1) 2025 , 05/17/2023, 05/15/2021, Additional history exists PAP 05/23/2026 05/23/2023, 09/2022, 04/30/2020, Additional history exists DTAP/TDAP/TD VACCINE (10 - Td or Tdap) 04/24/2035 04/24/2025, 05/17/2023, 10/14/2020, Additional history exists ZOSTER VACCINE (1 of 2) 2043 HPV VACCINE Completed 10/31/2008, 1110/2007, 04/04/2008 MENINGITIS VACCINE Completed 04/14/2011 HIV SCREENING Completed 10/18/2016, 06/16/2015 HEPATITIS C SCREENING Completed 04/30/2020, 015 COVID-19 VACCINE Completed 05/30/2024, 06/2023, 09/25/2021, Additional history exists HEPATITIS B VACCINE Completed 01/18/2025, 01/18/1995, 01/18/1995, Additional history exists RSV VACCINE Discontinued 05/08/2025 PNEUMOCOCCAL VACCINE: PEDIATRICS (0 to 5 YEARS) AND AT-RISK PATIENTS (6 to 49 YEARS) Aged Out No longer eligible based on patient's age to complete this topic Goals Goal Patient Goal Type Associated Problems Recent Progress Patient-Stated? Author MYC ECC OBHTN WELCOME GOAL Care Plan MYC ECC OBHTN WELCOME Problem No Shannon Mustafa MD Home Observation of Elevated Blood Pressure (HOPE-BP) program Care Plan Home Observation of Elevated Blood Pressure (HOPE-BP) program No Wade Rubin Procedures Procedure Name Priority Date/Time Associated Diagnosis Comments HEMOGLOBIN Add-On 05/18/2025 6:23 AM CDT EXTRA GREEN TOP (LITHIUM HEPARIN) TUBE Routine 05/18/2025 6:23 AM CDT EXTRA TUBE Routine 05/18/2025 6:23 AM CDT PLATELET COUNT Routine 05/18/2025 6:23 AM CDT ALT Routine 05/16/2025 7:24 AM CDT AST Routine 05/16/2025 7:24 AM CDT HEMOGLOBIN Routine 05/16/2025 7:24 AM CDT HEMOGLOBIN Routine 05/15/2025 8:19 PM CDT COMPREHENSIVE METABOLIC PANEL (LIMITED OCCURRENCES) Routine 05/15/2025 9:33 AM CDT CBC WITH PLATELETS (LIMITED OCCURRENCES) Routine 05/15/2025 9:33 AM CDT GLUCOSE BY METER Routine 05/15/2025 6:21 AM CDT ANE PERIPHERAL/PARAVETEBRAL BLOCK Routine 05/15/2025 6:13 AM CDT ANE AIRWAY ETT PERFORMABLE Routine 05/15/2025 3:12 AM CDT ANE SPINAL BLOCK FORM Routine 05/15/2025 2:35 AM CDT GLUCOSE BY METER Routine 05/15/2025 [...] PCR Routine 05/14/2025 6:5 4 PM CDT ABO/RH TYPE AND SCREEN Timed 5:06 PM CDT TYPE AND SCREEN, ADULT Timed 5:06 PM CDT TREPONEMA ABS W REFLEX TO RPR AND TITER Routine 05/14/2025 5:06 PM CDT MAGNESIUM STAT 05/14/2025 5:06 PM CDT COMPREHENSIVE METABOLIC PANEL STAT 05/14/2025 5:06 PM CDT CBC WITH PLATELETS STAT 05/14/2025 5: 06 PM CDT MFM COMPREHENSIVE SINGLE F/U Routine 04/10/2025 9:57 AM CDT Obesity during Chronic hypertension in [facility] COMPREHENSIVE SINGLE F/U Routine 03/19/2025 11:45 AM CDT Obesity during Chronic hypertension in [facility] SINGLE Routine 03/05/2025 10:40 AM CDT related condition, antepartum from Last 3 Months Results * Extra Green Top ([place] Heparin) Tube (05/18/2025 6:23 AM CDT) Hold Specimen JIC 05/18/2025 8:16 AM CDT UR LABORATORY Blood STRUCTURE OF LEFT UPPER LIMB / Unknown Venipuncture / Unknown 05/18/2025 6:23 AM CDT 05/18/2025 7:10 AM CDT Theresa Park MD LAB - BLOOD ORDERABLES Final Result UR LABORATORY [facility] Acute Care Lab [address] [place] [address], [place] [phone] * Platelet count (05/18/2025 6:23 AM CDT) Platelet Count 315 150 - 450 10e3/uL 05/18/2025 6:39 AM CDT UR LABORATORY MCV 82.5 78.0 - 100.0 fL 05/18/2025 6:39 AM CDT UR LABORATORY Blood STRUCTURE OF LEFT UPPER LIMB / Unknown Venipuncture / Unknown 05/18/2025 6:23 AM CDT 05/18/2025 6:34 AM CDT Balta Goyal MD LAB - BLOOD ORDERABLES Fi nal Result UR LABORATORY [facility] Acute Care Lab [facility], Room [address] [phone] * (ABNORMAL) Hemoglobin (05/18/2025 6:23 AM CDT) Only the most recent of3 resultswithin the time period is included. Hemoglobin 8.6(L) 11.7 - 15.7 g/dL 05/18/2025 8:58 AM CDT UR LABORATORY Blood STRUCTURE OF LEFT UPPER LIMB / Unknown Venipuncture / Unknown 05/18/2025 6:23 AM CDT 05/18/2025 6:34 AM CDT us Sapphire Vargas MD LAB - BLOOD ORDERABLES Final Result UR LABORATORY [facility] Acute Care Lab [address] [place] [address], [address] * AST (05/16/2025 7:24 AM CDT) AST 39 0 - 45 U/L 05/16/2025 8:3 1 AM CDT UR LABORATORY Blood BLOOD SPECIMEN / Unknown Venipuncture / Unknown 05/16/2025 7:24 AM CDT 05/16/2025 8:12 AM CDT Delaney Watkins MD LAB - BLOOD ORDERABLES Final Re sult Performing Organization Address City/[facility] Co de Phone Number UR LABORATORY [facility] Acute Care Lab [address] [place] [address], [address] * (ABNORMAL) ALT (05/16/2025 7:24 AM CDT) ALT 80(H) 0 - 50 U/L 05/16/2025 8:3 1 AM CDT UR LABORATORY Blood BLOOD SPECIMEN / Unknown Venipuncture / Unknown 05/16/2025 7:24 AM CDT 05/16/2025 8:12 AM CDT Delaney Watkins MD LAB - BLOOD ORDERABLES Final Re sult UR LABORATORY [facility] Acute Care Lab [address] [facility], [address] [place] [phone] * (ABNORMAL) CBC with Platelets (Limited Occurrences) (05/15/2025 9:33 AM CDT) [facility] WBC Count 16.31(H) 4.00 - 11.00 10e3/uL [...] BLOOD ORDERABLES Julianna padron Result UR LABORATORY [facility] Acute Care Lab [address] [facility], Room [address] [phone] * (ABNORMAL) Comprehensive Metabolic Panel (Limited Occurrences) (05/15/2025 9:33 AM CDT) Pathologist [facility] Sodium 131(L) 135 - 145 mmol/L 05/15/2025 [...] 9:56 AM CDT UR LABORATORY Comment:eGFR calculated usin 2020 CKD-EPI equation. Calcium 7.4(L) 8.8 - 10.4 [...] CDT 05/15/2025 9:37 AM CDT us Paco B Blekkenk MD LAB - BLOOD ORDERABLES Julianna l Result UR LABORATORY [facility] Lab [address] [place] [address], Room [place] [phone] * (ABNORMAL) Glucose by meter (05/15/2025 6:21 AM CDT) Only the most recent of4 resultswithin the time period is included. GLUCOSE BY METER POCT 107(H) 70 - 99 mg/dL 05/15/2025 6:28 AM CDT UR LABORATORY POC Blood, Capillary BLOOD SPECIMEN / Unknown 05/15/2025 6:21 AM CDT 05/15/2025 6:28 AM CDT us Dhruv Harris MD LAB - BEAKER POCT Final Re sult Performing Organization Address [facility]/ZIP Co de Phone Number UR LABORATORY POC [facility] Lab [address] [place] [address], Room [place] [phone] * Peripheral/Paravertebral Block (05/15/2025 6:13 AM CDT) [...] 20 mL - 05/15/2025 6:00:00 AM FOR [facility] ([facility]) ONLY: Pain Team Contact information: please page the Pain Team Via Rethink. Search Pain. During daytime hours, please page the attending first. At night please page the resident first. us Jorge Gonzalez MD MA ANESTHESIA Final Re sult * ANE AIRWAY ETT PERFORMABLE (05/15/2025 3:12 AM CDT) Narrative Sunny Lou MD - 05/15/2025 3:12 AM CDT Sunny Lou MD 05/15/2025 5:20 AM Airway Patient location during procedure: OR Procedure Start/Stop Times: 05/15/2025 3:12 AM Staff - Anesthesiologist: Jorge Gonzalez MD Resident/Fellow: Sunny Lou MD Performed By: resident and with residents Procedure performed by resident/fellow/FAMILY ASSISTANT in presence of a teaching physician. Consent [...] Administered Medication Administration Time: 05/15/2025 3:12 AM us Jorge Gonzalez MD MA ANESTHESIA Final Re sult * Spinal Block (05/15/2025 2:35 AM CDT) Narrative Sunny Lou MD - 05/15/2025 2:35 AM CDT Sunny Lou MD 05/15/2025 2:36 AM Intrathecal injection Procedure Note Pre-Procedure Staff - Anesthesiologist: Jorge Gonzalez MD Resident/Fellow: Sunny Lou MD Performed By: resident and with residents Procedure performed by resident/fellow/FAMILY ASSISTANT in presence of a teaching physician. Location: [...] 15 mcg - 05/15/2025 2:26:00 AM FOR [facility] ([facility]) ONLY: Pain Team Contact information: please page the Pain Team Via Rethink. Search Pain. During daytime hours, please page the attending first. At night please page the resident first. us Jorge Gonzalez MD MA ANESTHESIA Final Re sult * (ABNORMAL) CBC with platelets (05/15/2025 1:42 AM CDT) Only the most recent of2 resultswithin the time period is included. WBC Count 13.32(H) 4.00 - 11.00 10e3/uL [...] BLOOD ORDERABLES Fi nal Result UR LABORATORY [facility] Acute Care Lab [address] [facility], [address] [place] [address], [facility] * CT Head w/o Contrast [...] the vertex were obtained without intravenous contrast. Chip Loft Worker (topogram) image(s) also obtained and reviewed. FINDINGS: [...] the vertex were obtained without intravenous contrast. Chip Loft Worker (topogram) image(s) also obtained and reviewed. FINDINGS: [...] agree with the findings. DANETTE العلي MD Balta Goyal MD IMG CT ORDERABLES Final R esult * Group B strep PCR (05/14/2025 6:54 [...] LABORATORY - 05/15/2025 2:59 PM CDT The [employer] Xpert GBS LB Assay, performed on the [employer], is a qualitative in vitro diagnostic [...] or monitor treatment for GBS infections. The CepSeGan Angel Printsid Xpert GBS LB Assay is intended for use in hospital, reference or state laboratory settings. The device is not intended for tlofz-zn-lirk use. Paco Segura MD LAB - MICRO GENERAL ORDERAB LES Final Result [facility] IDD LABORATORY [facility] Inf. Diseases Diag. Lab [address] [facility], [address] [place] [phone] * Adult Type and Screen (05/14/2025 5:06 [...] TEST ORDER Final Result UR BLOOD BANK [facility] Blood Components Lab [address] [facility], [address] [place] [address], [facility] * Treponema Abs w Reflex to RPR and Titer (05/14/2025 5:06 PM CDT) Treponema Antibody Total Nonreactive Nonreactive 05/15/2025 10:26 AM CDT SPECIALTY LABS Blood STRUCTURE OF RIGHT UPPER LIMB / Unknown Venipuncture / Unknown 05/14/2025 5:06 PM CDT 05/14/2025 5:20 PM CDT Paco Segura MD LAB - BLOOD ORDERABLES Julianna l Result SPECIALTY CORE/PROT/ENDO Specialty Core/Prot/Endo [address] [facility] Unit [facility], Room [address] [place] [address] SPECIALTY LABS Specialty Lab [address] [facility], [address] [address], [facility] * (ABNORMAL) Magnesium (05/14/2025 5:06 PM CDT) Magnesium 3.8(H) 1.7 - 2.3 mg/dL 05/14/2025 5:44 PM CDT UR LABORATORY Blood STRUCTURE OF RIGHT UPPER LIMB / Unknown Venipuncture / Unknown 05/14/2025 5:06 PM CDT 05/14/2025 5:20 PM CDT us Paco Segura MD LAB - BLOOD ORDERABLES Julianna l Result UR LABORATORY [facility] Acute Care Lab [address] [facility], [address] [place] [address], [facility] * (ABNORMAL) Comprehensive Metabolic Panel [...] 5:44 PM CDT UR LABORATORY Comment:eGFR calculated usin 2020 CKD-EPI equation. Calcium 8.5(L) 8.8 - 10.4 [...] Segura MD LAB - BLOOD ORDERABLES Julianna nereida Result UR LABORATORY [facility] Acute Care Lab [address] [facility], [address] [place] [address], [facility] * [facility] Comprehensive Single F/U (04/10/2025 9:57 AM CDT) Only the most recent of2 resultswithin the time period is included. Anatomical Region Laterality Modality Ultrasound 04/10/2025 9:22 [...] Comp Follow Up ----- Pat. Name: CARON ARAMBULA Study Date: 04/10/2025 9:22am Pat. NO: [id number] Referring MD: RO FORD Site: [employer] Skills: Lisa GutierrezAD lacey : 1995 Age: 29 ----- INDICATION ----- [...] 3 lb 0 oz EFW by Hadlock ([id number]) Head / Face / Neck Biometry: Banquet Food Server 3.7 mm CM 9.0 mm ANATOMY ----- The following structures appear normal: Head / Neck Cranium. Head size. Head shape. Lateral ventricles. Midline falx. Cavum septi pellucidi. Cerebellum. Cisterna magna. Thalami. Face Lips. Profile. Nose. Heart / Thorax 2-sbvwaz-nerzusf view. Diaphragm. Abdomen Stomach. Kidneys. Bladder. Spine [...] the patient (reviewing medical records/tests), in direct qrja-es-tnyr contact with the patient during the visit counseling and discussing the plan of care and documenting the visit in the electronic medical record. Procedure Note Kitty Dennis MD - 04/10/2025 Comp Follow Up ----- Pat. Name: CARON ARAMBULA Study Date: 04/10/2025 9:22am Pat. NO: [id number] Referring MD: RO FORD Site: [employer] Skills: Lisa Costello RDMS : 1995 Age: 29 [...] d28 w + 0 d 07/03/2025 U/S 04/10/2025ased upon AC, BPD, Femur, HC29 w + 6 d 06/20/2025 Assigned dating based on ultrasound (), selected on03/05/2025 28w + 0 d 07/03/2025 [...] EFW (lb,oz) 3 lb 0oz EFW by Hadlock([id number]) Head / Face / Neck Biometry: Banquet Food Server 3.7mm CM 9.0mm ANATOMY ----- The following structures appear normal: Head / Neck Cranium. Head size. Head shape.Lateral ventricles. Midline falx. Cavum septi pellucidi. Cerebellum.Cisterna magna. Thalami. Face Lips. Profile. Nose. Heart / Thorax 8-pqhwcd-shazled view. Diaphragm. Abdomen Stomach. Kidneys. Bladder. Spine [...] chronic hypertension on medication, delivery is recommended [id number], unless otherwise clinically indicated sooner. - We [...] see the patient(reviewing medical records/tests), in direct xefx-uz-trex contact with the patient during the visitcounseling [...] appeared normal. us Kitty Dennis MD [facility] US ORDERABLES Edited Result - Final * [facility] US Comprehensive Single (03/05/2025 10:40 AM [...] AM CDT Comprehensive ----- Pat. Name: CARON ARAMBULA Study Date: 03/05/2025 9:35am Pat. NO: [id number] Referring MD: RO FORD Site: [employer] Skills: Janusz Sampson RDMS : 1995 Age: 29 [...] 1 lb 1 oz EFW by Hadlock ([id number]) Head / Face / Neck Biometry: Banquet Food Server 5.7 mm CM 7.7 mm Nasal bone [...] suboptimal apical view. RVOT view. 3-vessel view. 1-qbzxau-qdddfpj view. Right lung. Left lung. The following [...] was at the 8% (on US in [place] EFW had been in the 55%). Thus, recommend return to [facility] in 2 weeks for growth assessment to ensure adequate interval growth and follow up suboptimal anatomy. Thereafter, recommend serial evaluation of growth q4 weeks starting at 28 weeks gestation and initiation of weekly surveillance at 32 weeks for chronic hypertension on medication. For chronic hypertension on medication, delivery is recommended at [id number]. MFM can assist with delivery timing recommendations [...] the patient (reviewing medical records/tests), in direct aeji-vk-syyb contact with the patient counseling and discussing the plan of care, documenting the visit in the electronic medical record, and communicating with other health intensive care ambulance paramedic and/or care coordination. Procedure Note Ofelia Macedo MD - 03/06/2025 Comprehensive ----- Pat. Name: CARON ARAMBULA Study Date: 03/05/2025 9:35am Pat. NO: [id number] Referring MD: RO FORD Site: [employer] Skills: Janusz Sampson RDMS : 1995 Age: 29 [...] Assigned dating based on ultrasound (GA), selected 03/05/2025 22w + 6 d 07/03/2025 GENERAL EVALUATION [...] EFW (lb,oz) 1 lb 1oz EFW by Hadlock([id number]-[id number]) Head / Face / Neck Biometry: [employer] 5.7mm CM 7.7mm Nasal bone 6.8mm ANATOMY [...] view: suboptimal apicalview. RVOT view. 3-vessel view. 0-gdwlfv-bzmpehl view. Right lung. Left lung. The following [...] JENY was changed today to 07/03/25 by [id number]. She reports IUD removal in August 2024 (inadvertent removal athome) with some irregular bleeding thereafter. Had not resume normal cycling of menses prior togetting . She was using OPK to track ovulation and knows when sheovulated with JENY estimate of 07/02 or 07/03. Thus, in light of the above, will use [id number] for JENY. Prior to this change, EFW was at the 8% (on US in JelmEFW had been in the 55%). Thus, recommend return to [facility] in 2 weeks for growth assessment toensure adequate interval growth and follow up suboptimal anatomy. Thereafter, recommend serial evaluation of growth q4 weeks startingat 28 weeks gestation and initiation of weekly surveillance at32 weeks for chronic hypertension on medication. For chronic hypertension on medication,delivery is recommended at [id number]. MFM can assist with deliverytiming recommendations if needed. Caron does not have a history of myomectomy - her operative note [id number] was reviewed today. Return to primary provider for continued care. If you have questions regarding today's evaluation or if we can be offurther service, please contact the [facility]. anomalies may be present but not detected I spent a total of 25 minutes (excluding the ultrasound interpretation) onthe date of this encounter including preparing to see the patient(reviewing medical records/tests), in direct [id number] contact with the patient counseling and discussingthe plan of care, documenting the visit in the electronic medical record,and communicating with other health intensive care ambulance paramedic and/or care coordination. IMPRESSION ----- 1. Amaral [...] long and closed. us Ro Ford MD [facility] ORDERABLES Edit ed Result - Final from Last 3 Months Additional Health Concerns Active Problems Noted Date Diagnosed Date MYC ECC OBHTN WELCOME Problem 05/18/2025 Home Observation of Postpart um Elevated Blood Pressure (HOPE-BP) program 05/18/2025 Insurance BCBS OUT OF STATE [employer] [place] [address] [id number] [place] [address] Advance Directives For more information, please contact: [phone] * Full Code (Latest Code Status on File) Date Activated Date Inactivated Comments 05/14/2025 5:00 PM 05/15/2025 9:47 AM All basic an d advanced life-sustaining interventions are performed as appropriate Question Answer Comments Code status determined by: Discussion with patie nt/ legal decision maker Care Teams Bandoleer Packer Relationship Specialty Start Date End Date System, Provider Not In PCP - General Clinic 02/19/23 Daisy Beebe PA-C [address] [place], [place] [address] Assigned PCP 08/25/22 Nilam Beal MD [address] [place], [place] [address] Cardiovascular Disease 02/21/23 Ofelia Macedo MD [address] [place], [place] [id number] Assigned Pediatric Specialist Provider 03/13/25
[2025-05-20 15:47] VITALS: BP 149/79; PULSE 84; RESP 16; TEMP 36.6; O2SAT 99; BMI 45.8
--- NOTE | 2025-05-20 15:56 | CRLHL7_ITS ---
For Patients: As a result of the Century Cures Act, medical imaging exams and procedure reports are released immediately into your electronic medical record. You may view this report before your referring provider. If you have questions, please contact your health care provider. INDICATION: POST SURGICAL PAIN, POST TECHNIQUE: CT abdomen and pelvis acquired with 150 cc Isovue 370 IV contrast. COMPARISON: None. FINDINGS: Lower chest: The visualized lower lungs are aerated. No pleural or pericardial effusion. ABDOMEN: Liver: Normal enhancement. No focal suspicious hepatic lesions. Gallbladder and biliary: Cholecystectomy. Normal caliber bile ducts. Spleen: Normal size and enhancement. Pancreas: Normal enhancement without peripancreatic inflammatory changes or ductal dilatation. Adrenal glands: Normal adrenal glands. Kidneys and ureters: Normal enhancement. No radio-opaque calculi. No hydroureteronephrosis. GI tract: The stomach is relatively decompressed. Normal caliber small and large bowel loops. Normal appendix. Vascular structures: Normal caliber abdominal aorta. Lymph nodes: No lymphadenopathy in the abdomen or pelvis by size criteria. Peritoneum: No free air, free fluid, or focal drainable fluid collection. PELVIS: Genitourinary system: Urinary bladder is decompressed with a catheter. Small amount of air within the lumen should be iatrogenic. Post gravid appearance of the uterus status post . SKELETAL STRUCTURES AND SOFT TISSUES: Changes of recent with subcutaneous gas and areas of linear stranding. Small amounts simple attenuation fluid along the incision without associated rim enhancement or adjacent stranding. Small amounts of subcutaneous gas and stranding within the lower rectus musculature should also be postoperative. IMPRESSION: 1. Changes of recent with subcutaneous gas and areas of linear stranding. Small amounts simple attenuation fluid along the incision without associated rim enhancement or adjacent stranding. Small amounts of subcutaneous gas and stranding within the lower rectus musculature should also be postoperative. Postoperative post gravid appearance of the uterus. 2. No discrete acute process in the abdomen or pelvis. Please note that all CT scans at this facility use dose modulation, iterative reconstruction, and/or weight-based dosing when appropriate to reduce radiation dose to as low as reasonably achievable. Dictated by Jah Telles MD @ 05/20/2025 4:39:37 PM (Electronically Signed)
[2025-05-20 16:18] LABS: Lactate* 1.2 mmol/L (0.5-1.9)
[2025-05-20 16:21] LABS: Hematocrit* 30.3 % (33.0-51.0); Hemoglobin* 9.7 gm/dL (12.0-16.0); Immature Granulocytes Abs Auto 0.06 K/uL (0.00-0.30); Immature Granulocytes Pct Auto 0.7 %; Lymphocytes Absolute Auto 2.62 K/uL (0.90-2.90); Mean Corpuscular HGB Conc 32 gm/dL (32-36); Mean Corpuscular Hemoglobin 27 pg (26-34); Mean Corpuscular Volume 84 fL (80-100); RDW Coefficient of Variation % 14.8 % (11.5-15.5); Red Blood Count* 3.59 m/uL (4.00-5.20); White Blood Count* 8.94 K/uL (4.50-11.00)
[2025-05-20 16:22] LABS: Appearance Urine Clear (Clear)
[2025-05-20 16:37] LABS: Slide Review Reflex No
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
[2025-05-20 16:50] LABS: Albumin* 3.4 g/dL (3.3-5.0); Chloride* 105 mmol/L (96-114)
[2025-05-20 16:51] LABS: Potassium* 3.9 mmol/L (3.6-5.1); Sodium* 136 mmol/L (135-149)
[2025-05-20 16:53] LABS: Blood Urea Nitrogen* 11 mg/dL (5-24); Creatinine* 0.6 mg/dL (0.5-1.5); Est. Creatinine Clearance* 141.98; Estimated Glomerular Filt Rate 123 ml/min
[2025-05-20 16:54] LABS: Alanine Aminotransferase* 50 U/L (4-35); Alkaline Phosphatase* 76 U/L (40-150); Anion Gap 7 mEq/L (7-15); Aspartate Amino Transferase* 35 U/L (12-35); Bilirubin Direct* 0.1 mg/dL (0.0-0.5); Bilirubin Total* 0.1 mg/dL (0.1-1.5); Calcium* 9.0 mg/dL (8.4-10.6); Carbon Dioxide* 24 mmol/L (20-32); Glucose* 87 mg/dL (60-115); Total Protein* 6.7 g/dL (6.0-8.3)
--- OUTSIDE RECORDS SUMMARY | 2025-05-20 16:57 | XMS_ITS | Encounter Summary ---
Author Organization [facility] Address [address] [facility] [place] [address] Care Team Providers Care Referral Manager Name Role Phone Daisy Beebe PA-C Unavailable [phone] System, Provider Not In Primary Care Provider Un available Nilam Beal MD Unavailable Ofelia Macedo MD Unavailable [phone] Reason for Visit * Reason Onset Date Comments HOPE-BP 05/20/2025 Encounter Details Date Type Department Care Team (Late st Contact Info) Description 05/20/2025 Telephone [facility] [place] [address] [place], [place] [id number] Krupa Kam RN HOPE-BP Social History Tobacco Use Types Packs/Day Years Used Date Smoking Tobacco: Former Cigarettes Q uit: 09/22/2021 Smokeless Tobacco: Never Alcohol Use Standard Drinks/Week Comments Not Currently 0 (1 standard drink = 0.6 oz pur e alcohol) [place] Depression Scale Answer Date Recorded [place] Depression Scale Total 3 05/16/2025 The thought [...] in an abandoned building, in an overnight snf, or couch-surfing.) Yes 05/14/2025 Are you worried [...] on file 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 Follow up Firebase message sent. documented in this encounter Plan of Treatment Upcoming Encounters Date Type Department Care Team (Late st Contact Info) Description 05/23/2025 8:00 AM CDT Appointment [facility] [address] [place] [address] [phone] Delaney Watkins MD [address] [place] [address] 05/23/2025 1:45 PM CDT Office Visit [facility] [place] [address] [facility] [address] [place] [address] Annmarie Rodrigues MD [address] [place], [place] [address] Scheduled Procedures Name Priority Associated Diagnoses Date/Ti [...] documented as of this encounter Care Teams Referral Manager Relationship Specialty Start Date End Date System, Provider Not In PCP - General Clinic 02/19/23 Daisy Beebe PA-C [address] [place] [address] Assigned PCP 08/25/22 Nilam Beal MD [address] [place] [id number] Cardiovascular Disease 02/21/23 Ofelia Macedo MD [address] [place], [place] [address] Assigned Pediatric Specialist Provider 03/13/25 documented as of this encounter
[2025-05-20 17:10] LABS: Procalcitonin* 0.04 ng/mL (<0.50)
[2025-05-20 17:28] VITALS: BP 128/78; PULSE 68; RESP 18; O2SAT 99
== END 2025-05-20 17:48 | disposition home or self-care (01) ==
PROVIDERS: Emergency Provider Family Medicine; PCP Family Medicine
DX: R31.9 Hematuria, unspecified (principal); Z87.59 Personal history of other complications of pregnancy, childbirth and the puerperium
CPT/HCPCS: 36415; 74177; 80048; 80076; 81001; 83605; 84145; 85025; 86140; 87086; 99284; Q9967

== ENCOUNTER 2025-07-12 13:07 | Outpatient (CLI) | payer BC, SELFPAY ==
--- NOTE | 2025-07-12 16:02 | W.PM.LAC.MC ---
Consult Note - Mom Date of Visit Date of visit: 07/12/25 Reason for consultation: Assistance Needed and with Special Needs (33 wk preemie) Visit Code: Visit Patient's Information Phone number: [phone] Para: 2 Allergies ibuprofen Allergy (Severe, Verified 06/27/25 09:24) Anaphylaxis kiwi Allergy (Severe, Verified 06/27/25 09:24) Difficulty Breathing levofloxacin Allergy (Severe, Verified 06/27/25 09:24) pyschosis moxifloxacin Allergy (Severe, Verified 06/27/25 09:24) psychosis pineapple Allergy (Severe, Verified 06/27/25 09:24) Difficulty Breathing ciprofloxacin (From Cipro) Allergy (Intermediate, Verified 06/27/25 09:24) Anxiety Sulfa (Sulfonamide Antibiotics) Allergy (Mild, Verified 06/27/25 09:24) Hives adhesive tape Allergy (Verified 06/27/25 09:24) Mother's Medical History: Medical History (Updated 06/27/25 @ 11:28 by Shirley Marion PA-C) Transaminitis ?R74.01 - Elevation of levels of liver transaminase levels (ICD-10) Preeclampsia, severe ?O14.10 - Severe pre-eclampsia, unspecified trimester (ICD-10) Pelvic floor tension ?M62.89 - Other specified disorders of muscle (ICD-10) Left sided sciatica ?M54.32 - Sciatica, left side (ICD-10) Cholelithiasis ?K80.20 - Calculus of gallbladder without cholecystitis without obstruction (ICD-10) Gestational diabetes (04/18/25) ?O24.419 - Gestational diabetes mellitus in , unspecified control (ICD-10) Obesity ?E66.9 - Obesity, unspecified (ICD-10) Sinus tachycardia ?R00.0 - Tachycardia, unspecified (ICD-10) PTSD (post-traumatic stress disorder) ?F43.10 - Post-traumatic stress disorder, unspecified (ICD-10) Panic disorder ?F41.0 - Panic disorder [episodic paroxysmal anxiety] (ICD-10) JUAN PABLO (obstructive sleep apnea) ?G47.33 - Obstructive sleep apnea (adult) (pediatric) (ICD-10) Depression ?F32.A - Depression, unspecified (ICD-10) Delivery Information Delivery type: Primary C/S; Non-Labored Gestational Age: 33 wk Gestational Weight For Age: AGA Weight: 2.18 kg Discharge Weight: 3.203 kg Baby's Information Baby's Age at Visit: 1m 28 days Baby's Provider or Clinic: [facility] Jaundice: No Past Experience Past Experience: Yes Current Frequency of Day Feedings: every 3 hrs Frequency of Night Feedings: q3-4 hrs Both Breasts: Yes Suck: on and off Latch: shallow Length of Time: 10-15 min Pumping Pumping: Yes Quantity Pumped: 5 oz in AM, 2 oz other pumps Supplementing EBM Supplement: Yes Formula Supplement: Yes Baby Elimination Number of Wet Diapers a Day: ea feeding Number of BM a Day: several/day Breast/Nipple Condition Breast Information: Breasts are symmetrical with rounded lower quadrants, intramammary distance is less than 1.5 inches. No erythema. Nipples are supple, everted prior to feeding. Breast Shape: Round Engorgement: No Maternal Nipple Condition - Left: Common Nipple Maternal Nipple Condition - Right: Common Nipple Sore Nipples: No Baby Assessment Skin: Normal Tongue/frenulum: Normal/elastic and Restricted mid-range Palate: Average Lips: Tight labial frenulum (slight) Jaw Alignment: Symmetrical Mucosa: [place], moist Onsite Observation Pre-Feed weight: 4.356 kg Post-Feed weight: 4.392 kg Milk Transferred (mL): 36 Position: Football Attachment/latch-on achieved: With difficulty Suck pattern: Suck burst and normal rest Swallow: Audible, consistent and Occasionally (on left) Behavior following feed: Alert, content Pre-Nursing Left Nipple: Within Normal Limits Pre-Nursing Right Nipple: Within Normal Limits Post-Nursing Left Nipple: Within Normal Limits Post-Nursing Right Nipple: Within Normal Limits Assessments/Interventions Assessments/Interventions: Jairone latched to mom's LEFT breast, latched shallowly and stayed nursing for 12 minutes. Transferred 12 ml of milk Babe then latched to mom's RIGHT breast, latched also shallowly, although able to relatch and get a bit wider, deeper latch and nursed for another 15 minutes. Transferred 24 ml of milk. Total volume: 36 ml Jairone then took 60 ml of formula with a Kelsey bottle. Babe constantly pulls bottom lip in while suckling. Most challenging to get baby to open his mouth wide to allow for a deep latch Some techniques discussed to help get mouth open wide to allow for a deeper latch. Discussed role of tongue tie in baby opening wide and removing milk well. Mom would like another opinion; she was given mixed information at the hospital re: if he did or did not have a tongue tie and if he did if it should be released or not. Resources share for mom to seek professional opinion from someone who does tethered oral tie releases. Suck exercises given to help with wider open mouth: guppy pose, jaw massage with squishy face and tongue extention. if she proceed with release, also add in toothbrushing for him to gain more mobility of his tongue. Education provided: Early feeding cues to maximize timing of latching, Asymmetric latch technique for wide/deep latch to increase milk, Transfer for baby and increase comfort for mom, Supply/demand nature of milk supply and Pumping for milk management (mom will continue with current pumping routine) Follow-Up Suggested follow up: Appointment as needed Time Spent Time spent with patient (min): 75 Meds Home Medications and Allergies Home Medications ?Medication ?Instructions ?Recorded ?Confirmed ?Type lamotrigine 100 mg tablet 200 mg PO DAILY 07/18/24 06/27/25 History docosahexaenoic acid 200 mg 200 mg PO DAILY 12/12/24 06/27/25 History capsule ( DHA) metoprolol succinate 50 mg 50 mg PO DAILY 05/20/25 06/27/25 History tablet,extended release 24 hr citalopram 10 mg tablet 20 mg PO QDAY 06/27/25 06/27/25 History Allergies Allergy/AdvReac Type Severity Reaction Status Date / Time ibuprofen Allergy Severe Anaphylaxis Verified 06/27/25 09:24 kiwi Allergy Severe Difficulty Verified 06/27/25 09:24 Breathing levofloxacin Allergy Severe pyschosis Verified 06/27/25 09:24 moxifloxacin Allergy Severe psychosis Verified 06/27/25 09:24 pineapple Allergy Severe Difficulty Verified 06/27/25 09:24 Breathing ciprofloxacin (From Cipro) Allergy Intermediate Anxiety Verified 06/27/25 09:24 Sulfa (Sulfonamide Allergy Mild Hives Verified 06/27/25 09:24 Antibiotics) adhesive tape Allergy Verified 06/27/25 09:24
== END 2025-07-12 13:08 | disposition home or self-care (01) ==
LOC: OB LAC 13:08
PROVIDERS: PCP Family Medicine; Visit Provider Obstetrics & Gynecology
DX: Z39.1 Encounter for care and examination of lactating mother (principal)
CPT/HCPCS: G0463